=== PATIENT | female | born 1965 | race Caucasian/White ===

== ENCOUNTER → 2018-01-04 08:06 | Outpatient (CLI) | payer OTHER, SELFPAY ==
[2018-01-04 10:21] LABS: AST(SGOT) 14 U/L (15-37); Alanine Aminotransfer ALT/SGPT 24 U/L (13-56); Albumin, Serum 3.6 g/dL (3.2-5.0); Alkaline Phosphatase 87 U/L (45-117); Anion Gap 7 (5-15); BUN 16 mg/dL (7-18); BUN/Creat Ratio 22.2 RATIO (10-20); Calcium,Total 8.8 mg/dL (8.5-10.1); Chloride 107 mmol/L (98-107); Cholesterol 122 mg/dL (200); Creatinine, Serum 0.72 mg/dL (0.55-1.02); EST Glomerular Filtration Rate 89 mL/min (>60); Est Glom Filt Rate - Afr Amer 108 mL/min (>60); Globulin 3.5 g/dL (2.2-4.2); Glucose 202 mg/dL (74-106); Hemoglobin A1c 9.1 % (4.2-6.3); High Density Lipoprotein 39 mg/dL; Potassium 4.1 mmol/L (3.5-5.1); Protein, Total 7.1 g/dL (6.4-8.2); Sodium Level 140 mmol/L (136-145); Triglycerides 114 mg/dL; Very Low Density Lipoprotein 23 mg/dL (5-40)
[2018-01-04 10:22] LABS: Microalbumin,Random Urine 11.5 mg/L (NO RANGE EST.); Microalbumin:Creatinine Ratio 10.5 mg/g CRE (<30 mg/g CRE)
== END ==
PROVIDERS: Family Provider Internal Medicine; PCP Internal Medicine; Visit Provider Nurse Practitioner
DX: E10.9 Type 1 diabetes mellitus without complications (principal); E10.65 Type 1 diabetes mellitus with hyperglycemia
CPT/HCPCS: 36415; 80053; 80061; 82043; 82570; 83036

== ENCOUNTER → 2018-07-02 11:15 | Outpatient (CLI) | payer OTHER, SELFPAY ==
[2018-07-02 10:03] VITALS: BMI 26.4
[2018-07-02 14:02] LABS: ALB/GLOB Ratio 1.1 RATIO (0.9-2.4); AST(SGOT) 19 U/L (15-37); Alanine Aminotransfer ALT/SGPT 30 U/L (13-56); Albumin, Serum 4.1 g/dL (3.2-5.0); Alkaline Phosphatase 103 U/L (45-117); Anion Gap 5 (5-15); BUN 15 mg/dL (7-18); BUN/Creat Ratio 21.8 RATIO (10-20); Calcium,Total 9.9 mg/dL (8.5-10.1); Chloride 106 mmol/L (98-107); Creatinine, Serum 0.69 mg/dL (0.55-1.02); EST Glomerular Filtration Rate 94 mL/min (>60); Est Glom Filt Rate - Afr Amer 114 mL/min (>60); Globulin 3.7 g/dL (2.2-4.2); Glucose 84 mg/dL (74-106); Potassium 4.1 mmol/L (3.5-5.1); Protein, Total 7.8 g/dL (6.4-8.2); Sodium Level 140 mmol/L (136-145); Thyroid Stim Hormone (TSH) 3.33 uIU/mL (0.358-3.74)
--- OUTSIDE RECORDS SUMMARY | 2018-10-04 00:52 | XMS RPT_ITS ---
:1965 Author Organization [facility] Support Name Relationship Address Phone S Unavailable Unavailable Unavailable SNOBDULIA DAVALOS Unavailable [address] + [place] [address] S Unavailable Unavailable Unavailable OBDULIA CEBALLOS Unavailable [address] + [place] [address] S Unavailable Unavailable Unavailable SNOBDULIA DAVALOS Unavailable [address] + [place] [address] S Unavailable Unavailable Unavailable OBDULIA CEBALLOS Unavailable [address] + [place] [address] S Unavailable Unavailable Unavailable SNOBDULIA DAVALOS Unavailable [address] + [place] [address] S Unavailable Unavailable Unavailable OBDULIA CEBALLOS Unavailable [address] + [place] [address] S Unavailable Unavailable Unavailable OBDULIA CEBALLOS Unavailable [address] + [place] [address] S Unavailable Unavailable Unavailable OBDULIA CEBALLOS Unavailable [address] + [place] [address] S Unavailable Unavailable Unavailable SNOBDULIA DAVALOS Unavailable [address] + [place] [address] Care Team Providers Name Role Phone Jenny Cooper Attending Unavailable Jarrell, Cecy Referring Unavailable Jenny Cooper Attending Unavailable Jenny Cooper Referring Unavailable Jarrell, Cecy Primary Care Unavailable Jenny Cooper NP-Trina Attending Unavailable Jenny Cooper NP-Trina Referring Unavailable Jarrell, Cecy Primary Care Unavailable Jenny Cooepr NP-C Attending Unavailable Jarrell, Cecy Referring Unavailable Jenny Cooper [facility] Attending Unavailable Melyssa Dowd Referring Unavailable Jarrell, Cecy Primary Care Unavailable Shook Jenny Mckeon [employer] Attending Unavailable Jarrell, Cecy Referring Unavailable Shook, Jenny Mckeon [employer] [employer] Attending Unavailable Shook, Jenny Mckeon [employer]C Referring Unavailable Jarrell, Cecy Primary Care Unavailable Shook, Jenny Mckeon [employer] [employer]-C Attending Unavailable Jarrell, Cecy Referring Unavailable Shook, Jenny Mckeon [employer] [employer]C Attending Unavailable Jarrell, Cecy Referring Unavailable Jarrell, Cecy Primary Care Unavailable PROBLEMS PROBLEMS DATE TYPE CONDITION / CODE ATTENDING STATUS SOURCE 07/02/2018 Unknown E10.65 - Type 1 Jenny Cooper Active [place] diabetes mellitus [facility] with hyperglycemia Hospital / E10.65(ICD-10) Repository 07/02/2018 Unknown E03.9 - Jenny Cooper Active [place] Hypothyroidism, [facility] Community unspecified / Hospital E03.9(ICD-10) Repository 04/09/2018 Unknown E10.9 - Type 1 ShoJenny marcano Active [place] diabetes mellitus [facility] Community without Hospital complications / Repository E10.9(ICD-10) 04/04/2018 Unknown E11.65 - Type 2 Jenny Cooper Active [place] diabetes mellitus [facility] Community with hyperglycemia Hospital / E11.65(ICD-10) Repository 01/03/2018 Unknown E11.9 - Type 2 ShoJenny marcano Active [place] diabetes mellitus [facility] Community without Hospital complications / Repository E11.9(ICD-10) PROCEDURES PROCEDURES No Procedure Records FoundRESULTS RESULTS THYROID Observed: 07/03/2018 Status: F Source: IMPERIAL 8:53 AM [facility] REPOSITORY [facility] Imaging Services [address] [place] [id number] Thyroid MR#: [id number] Acct: [id number] Name: CIRILO CEBALLOS Rep #: [id number] : 1965 F 53 From: Mary Ellen Crawford MD PCP: Cecy Vieyra DO Status: REG CLI Study: Thyroid Date of Exam: 07/03/18 Exam# [id number] Ordering Dr: Jenny Cooper STUDY: THYROID ULTRASOUND REASON FOR EXAM: Female, 53 years old. Nodule, hypothyroidism TECHNIQUE: Ultrasound evaluation of the thyroid was performed with real-time and static robin-scale imaging. COMPARISON: June 28, 2017 thyroid ultrasound FINDINGS: RIGHT LOBE: The right lobe of the thyroid gland measures 4.6 x 1.9 x 1.2 cm. There is a heterogeneous echotexture. There is a 9 x 9 x 8 mm hyperechoic nodule within the right thyroid. LEFT LOBE: The left lobe of the thyroid gland measures 4.5 x 1.9 x 1.3 cm. There is a heterogeneous echotexture. There are no demonstrated solid, cystic or complex lesions. Prior study showed what likely represented inferiorly located calcification this is partially seen on today's study. ISTHMUS: The isthmus measures 4 mm . The regional lymph nodes are normal. US/Thyroid IMPRESSION: Heterogeneous bilateral thyroid compatible with multinodular thyroid. There is a relative isoechoic component in the right thyroid gland measuring 9 x 9 x 8 mm which is similar to the prior study allowing for differences in technique. There are punctate calcifications in the inferior aspect of the right thyroid. Recommend continued follow-up. Electronically Signed: Mary Ellen Crawford MD at 2:57 EST Tel , Service support , CC: Jenny Cooper NP; Cecy Vieyra DO Apartment Leasing Agent: Signed ENDOCRINOLOGY VISIT Observed: 07/02/2018 Status: F Source: IMPERIAL REPORT 1:06 PM [facility] REPOSITORY [facility] [address] [place] [address]. [address] [place] [address] OFFICE VISIT Date of Service: 07/02/18 MR#: [id number] Acct: [id number] Name: CIRILO CEBALLOS Rep #: [id number] : 1965 Provider: Jenny Cooper NP Age/Sex: 53/F Location: [facility] [place] Status: Signed HPI History of present illness Cirilo Ceballos is a 53 year old female who presents for follow up of diabetes,type 1. Continues on levemir 11 units in am and 11 units in pm. Humalog coverage at meals is 5-8-13-0. Last visit a decrease in pm levemir was made and pt is no longer have low BG at night. Pt denies difficulty with injections or self monitoring of BG. Denies any signs of infection or irritation at site of injections. Reports taking insulin as directed Today patient is noted to be having low BG at bedtime and during the night. At time of visit: -Pt denies symptoms of hypertensive emergency (CP,SOB,JENSEN, or blurred vision) and hypotension(dizziness or lightheadedness) -Pt denies symptoms of hypoglycemia ( sweaty, confusion, anxiety, tremor, hunger, palpitations) and hyperglycemia ( polydipsia, polyuria) -Pt denies potential medication adverse effect. Hypoglycemia Aware of hypoglycemia: When awake Able to self treat low BG: Yes Frequent low Bloo sugar: No Has supply of glucagon: Yes SMBG 4 checks daily in range in am High BG by 5pm Exercise Walking in the evenings but uses her BG as a guide. Severity, modifying factors, context, and associated signs and symptoms are as follows: Thyroid pain: No Energy: good Sleep: awakened refreshed Temp: No intolerance GI: Normal bowel Weight: Flucuates Eyes: No change in vision Memory: unchanged Diaphoresis: Not significant Skin: Dry Hair : Unchanged Neuro: No numbness, tingling or tremors Exam Const General: comfortable, well groomed, well hydrated Nutritional Appearance: average body habitus Orientation: oriented x3 HENMT Head: normal to inspection, normocephalic Ears: hearing grossly normal bilaterally Nose: external nose normal Mouth: oral mucosae normal, moist mucous membranes Teeth and gingiva: dentition normal Eyes General: appearance normal, both eyes and all related structures Eyelids: eyelids normal Conjunctivae: conjunctivae normal Cornea: corneas normal Pupils: PERRL Resp Effort AND Inspection: normal respiratory effort, able to speak in complete sentences, symmetric chest movement Auscultation: Bilateral: Clear to Auscultation Cardio Rate: regular rate Rhythm: regular rhythm Heart Sounds: S1 normal, S2 normal, no murmurs, no rubs GI Inspection: normal to inspection Auscultation: normal bowel sounds Palpation: soft, no guarding Skin General: no rashes or lesions noted Wounds: no wounds Diabetic Foot Pulses: L dorsalis pedis pulse: normal, R dorsalis pedis pulse: normal Monofilament test: Left foot: normal, Right foot: normal Neuro General: moves all extremities Cranial Nerves: CN's II-XI intact bilaterally Extrem General: no joint enlargement, no clubbing, cyanosis or edema Psych Appearance: well kempt Mental Status: mental status grossly normal Mood: congruent mood Affect: normal affect Speech and Movement: speech and movement normal Attitude: cooperative Thought Process: normal Thought Content: normal Judgment: judgment good Type: type 1, insulin-requiring Glucose control symptoms: Reports nocturnal hypoglycemia Weight and fatigue symptoms: Denies snoring Cardiopulmonary symptoms: Denies chest pain at rest, dyspnea on exertion, lightheadedness or myalgias GI symptoms: Denies constipation, diarrhea, nausea/dyspepsia or vomiting Skin and extremity symptoms: Denies tingling/numbness/burning Other symptoms: Denies blurry vision or change in vision Pertinent visit history: Denies recent visit to ER, recent hospital admission or recent 911 calls Self monitoring: Yes Glucometer type: an[place]ieta sensor Dietary compliance: Diabetes: good Diabetes education in past year: Yes Glucose testing: demonstrates correct use of meter, understands testing schedule Sick day education - understands ketone testing: Yes Physical activity: regular Intake Vital Signs07/02/18 Height 5 ft 2 in 07/02/18 Weight: 144 lb 8 oz 07/02/18 Body Mass Index (BMI) 26.4 07/02/18 Blood Pressure 125/84 H 07/02/18 Blood Pressure Location Lt popliteal 07/02/18 Blood Pressure Position Sitting Intake Visit Reasons: Diabetes follow-up 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 Required: No Accompanied by: Self Allergies No Known Allergies Allergy (Verified 04/04/18 08:13) Medications Lactobacillus acidophilus capsule 10 mg PO QDAY 06/26/17 [History Confirmed 07/02/18] atorvastatin 20 mg tablet 20 mg PO QDAY 06/26/17 [History Confirmed 07/02/18] insulin detemir (U-100) 100 unit/mL (3 mL) subcutaneous pen 13 unit SC TID ml 06/26/17 [History Confirmed 07/02/18] loratadine 10 mg tablet 10 mg PO QDAY 06/26/17 [History Confirmed 07/02/18] multivitamin capsule 1 cap PO QAM 06/26/17 [History Confirmed 07/02/18] insulin lispro (U-200) 200 unit/mL (3 mL) subcutaneous pen See Rx Instructions SC QAM #3 ml 06/27/17 [Rx Confirmed 07/02/18] pen needle, diabetic 31 gauge x 11/29 See Dose Instructions .ROUTE .MEDSUPPLY #150 ea 06/27/17 [Rx Confirmed 07/02/18] FreeStyle Clear[place] Lite kit See Dose Instructions .ROUTE .MEDSUPPLY #1 ea NS 11/06/17 [Rx Confirmed 07/02/18] FreeStyle Lancets 28 gauge See Dose Instructions .ROUTE .MEDSUPPLY #100 ea NS 11/06/17 [Rx Confirmed 07/02/18] FreeStyle Lite Strips See Dose Instructions .ROUTE .MEDSUPPLY #150 ea NS 11/06/17 [Rx Confirmed 07/02/18] lisinopril 20 mg tablet 20 mg PO QDAY #90 tab 03/21/18 [Rx Confirmed 07/02/18] flash glucose scanning reader See Dose Instructions .ROUTE .MEDSUPPLY #1 ea 04/04/18 [Rx Confirmed 07/02/18] flash glucose sensor kit See Dose Instructions .ROUTE .MEDSUPPLY #3 ea 04/04/18 [Rx Confirmed 07/02/18] flash glucose sensor kit See Dose Instructions .ROUTE .MEDSUPPLY #2 ea 07/02/18 [Rx Confirmed 07/02/18] Nurse's Note: blood sugars : low : 82 high : 442 [facility] Medical History Diabetes type 1, controlled (Acute) Diabetes type 1, controlled (Acute) Hypothyroid (Acute) Hypothyroidism (Acute) Surgical History H/O lumpectomy (Acute) H/O: (Acute) History of (Acute) History of carpal tunnel release (Acute) History of carpal tunnel release of both wrists (Acute) History of lumpectomy of right breast (Acute) Family History Mother Diabetes Bleeding disorder High cholesterol Cancer Heart disease Hypertension Mother Bleeding disorder Diabetes High cholesterol Cancer Heart disease Hypertension Social History Smoking Status: Never smoker second hand exposure: No alcohol intake: current substance use type: does not use ROS Const Constitutional: Positive for night sweats; no anorexia, body ache, chills, fatigue, fever(s), frequent falls, decreased energy, malaise, weakness, weight change, sleep problems, abnormal sleep pattern, change in appetite, other, headache(s), snoring or excessive sweating Eyes Eyes: Positive for other (swelling in back of bilat eyes); no blurry vision, change in vision, double vision, discharge, dry eyes, bulging eyes, floaters, visual disturbances, eye pain, light sensitivity, spots in vision or tunnel vision ENT ENT: No abnormal hearing, ear pain, ear discharge, ear pressure, hearing loss, tinnitus, dizziness/vertigo, balance problems, nosebleed/epistaxis, nasal congestion, nasal obstruction, nose pain, sinus pressure, sinus pain, nasal discharge, post nasal drip, headache(s), facial pain, dental pain, dry mouth, bad breath, hoarseness, lip swelling, mouth lesions, mouth pain, sore throat, tongue swelling, throat swelling, other, difficulty swallowing or neck pain Resp Respiratory: No cough, change in phlegm color, chest congestion, excessive phlegm production, hemoptysis, pain on inspiration, shortness of breath, pain with cough, snoring, stridor, wheezing or other Cardio Cardiology: No chest pain at rest, chest pain with exertion, leg pain with exertion, excessive sweating, shortness of breath, dyspnea on exertion, generalized swelling, irregular heart rhythm, lightheadedness, orthopnea, radiating jaw, neck or arm pain, fast heart rate, slow heart rate, palpitations or other Gastro GI: No abdominal pain, belching, bloating, change in bowel habits, change in stool character, coffee ground emesis, constipation, cramping, diarrhea, heartburn, difficulty swallowing, feeling full early, excessive flatus, incontinent of stools, Vomiting blood/hematemesis, blood in stool, loose stools, Black,tarry stools, nausea/dyspepsia, pain with swallowing, vomiting or other Genitourinary-Female: No difficulty urinating, burning urination, painful urination, urinary incontinence, urinary frequency, urinary urgency, urinary hesitancy, urinary retention, blood in urine, Frequent nighttime urination/ nocturia, post void dribbling, suprapubic fullness, side pain, sexual problems, genital lesions, genital itching, hot flashes, abnormal periods, abnormal vaginal bleeding, absent period, painful periods, light periods, heavy periods, difficulty getting , painful intercourse, pelvic pain, vaginal dryness, vaginal odor, Vaginal Itching or other Musc Musculoskeletal: No abnormal walking, joint pain, back pain, deformity, joint swelling, limited range of motion, loss of height, muscle cramps, muscle weakness, decreased muscle mass, body aches, neck pain, numbness, radiating pain into limb, stiffness, tingling or other Skin Skin: No acne, hair loss, change in hair, nail changes, boil, change in skin color, dry skin, redness, excessive hair growth, yellowing of the skin, lesions, itching, rash, skin pain, skin ulcer, sores, skin swelling, wounds or other Breast Breast: No other Neuro Neurology: No frequent falls, weakness, visual disturbances, abnormal hearing, headache(s), abnormal walking, numbness or tingling Psych Psychiatric: No abnormal sleep pattern, No change in appetite Endo Endocrine: No fatigue, other or excessive sweating Aller/Imm Allergy/Immunologic: No lip swelling, tongue swelling, throat swelling, wheezing or itchy eyes Assessment AND Plan 1. Type 1 diabetes mellitus with other specified complication E10.69 2. Hypothyroidism (acquired) E03.9 Plan Diabetes: At last visit insulin increased at supper by 2 units but this is creating low BG at night again. Ask patient to reduce by 1 unit. If BG during day remain elevated can increase am levemir by 1 unit increments up to dose of 13 units. Hypothyroidism: Tolerating medication. TSH in range. Due for annual US thyroid. Control portions Food selections should be healthy Choose more low carb vegetables Avoid snacks and desserts. Drink water Exercise daily Eat more fresh foods, not canned or processed Eat more slowly Orders Orders: Plan Detail Other Orders Orders: Other Medications New: Additional Comments 1. Please schedule follow up in 3 months. 2. Lab work one week before appointment. 3. Discussed importance of regular exercise and recommend starting or continuing a regular exercise program for good health. 4. The patient was encouraged to lose weight for good health 5. The importance of monitoring blood sugar regularly was reviewed. 6. The importance of monitoring the HBA1c level regularly was reviewed. 7. The importance of prper foot care and regularly checking feet to prevent sores and loss of limbs was reviewed. 8. The importance of keeping BP at or below 130/80 to prevent stroke, heart attacks, kidney failure, blindness was reviewed. Spent approximately 30 minutes with patient with over 50% of time spent in discussion and counseling regarding medication adjustment, symptoms and treatment of hypoglycemia, diet adherence, and checking BG before driving. Coding Level of Care Code Off vis,est,level 4 Diagnoses Type 1 diabetes mellitus with other specified complication E10.69 Diabetes mellitus type: type 1 Diabetes mellitus complication status: with other specified complication Hypothyroidism (acquired) E03.9 07/02/18 1306 <Electronically signed by Jenny WEBSTER> Date Jenny WEBSTER Cosigner Signature: Date (if applicable) CC: HEMOGLOBIN A1C Collected: 07/02/2018 Status: F Source: NILO 11:28 AM [facility] REPOSITORY TYPE CODE TESTS RESULT OUT OF RANGE REFERENCE UNITS LAB L501.9985 4.2-6.3 % High HGB A1C 9.0 Performed By: #### L501.9985 #### [facility] [address] [place], [place], [address] COMPREHENSIVE METABOLIC Collected: 07/02/2018 Status: F Source: NILO [facility] 11:28 AM [facility] REPOSITORY TYPE CODE TESTS RESULT OUT OF RANGE REFERENCE UNITS LAB L501.0100 74-106 mg/dL Normal GLU 84 Result Comment: Please note revised GLUCOSE reference range effective 2017. LAB L501.1000 7-18 mg/dL Normal BUN 15 LAB L501.1100 0.55-1.02 mg/dL Normal CREAT,SERUM 0.69 Result Comment: The validity of the calculated GFR AND GFRAA in patients over 70 years has not been determined. Clinical correlation is essential. LAB L501.1110 >60 mL/min Normal EST GFR 94 Result Comment: Non- GFR Calc LAB L501.1115 >60 mL/min Normal EST GFR - AA 114 Result Comment: GFR Calc LAB L501.1300 10-20 RATIO High BUN/CRE 21.8 LAB L501.1500 6.4-8.2 g/dL T Normal PROT 7.8 LAB L501.1800 3.2-5.0 g/dL Normal ALB 4.1 LAB L501.1950 2.2-4.2 g/dL Normal GLOB 3.7 LAB L501.2000 0.9-2.4 RATIO Normal A/G 1.1 LAB L501.2200 8.5-10.1 mg/dL CA Normal 9.9 LAB L501.4100 15-37 U/L Normal AST 19 LAB L501.4305 45-117 U/L Normal ALK P 103 LAB L501.4405 13-56 U/L Normal ALT 30 LAB L501.4600 0.20-1.00 mg/dL T Normal BILI 0.40 LAB L501.5300 136-145 mmol/L NA Normal 140 LAB L501.5600 3.5-5.1 mmol/L K Normal 4.1 LAB L501.5900 98-107 mmol/L CL Normal 106 LAB L501.6100 21.0-32.0 mmol/L Normal CO2 29.0 LAB L501.6200 5-15 Normal GAP 5 Performed By: #### L500.4050, L501.9520 #### [facility] [address] [place], [place], [address] THYROID STIM HORMONE Collected: 07/02/2018 Status: F Source: NILO (TSH) 11:28 AM [facility] REPOSITORY TYPE CODE TESTS RESULT OUT OF RANGE REFERENCE UNITS LAB L501.9520 0.358-3.74 uIU/mL Normal TSH 3.33 Performed By: #### L500.4050, L501.9520 #### [facility] [address] [place], [place], [address] ENDOCRINOLOGY VISIT Observed: 04/05/2018 Status: F Source: NILO REPORT 8:25 AM [facility] REPOSITORY [facility] [address] [place] [address]. [address] [place] [address] OFFICE VISIT Date of Service: 04/04/18 MR#: [id number] Acct: [id number] Name: CIRILO CEBALLOS Rep #: [id number] : 1965 Provider: Jenny Cooper NP Age/Sex: 53/F Location: [facility] [place] Status: Signed with Addenda ADDENDUM by Jenny Cooper NP on 04/05/18 at 0825 Addendum entered and electronically signed by ELEANOR Prajapati 04/05/18 08:25: Flu vaccine given 03/2018 BJ Allison 04/05/18 0825 <Electronically signed by Jenny WEBSTER> Date Jenny Cooper cc: * Signed HPI History of present illness Cirilo Ceballos is a 53 year old female who presents for follow up of diabetes,type 1. Continues on levemir 11 units in am and 11 units in pm. Humalog coverage at meals is 5-7-13-0. Last visit a decrease in pm levemir was made and pt is no longer have low BG at night. Pt denies difficulty with injections or self monitoring of BG. Denies any signs of infection or irritation at site of injections. Reports taking insulin as directed At time of visit: -Pt denies symptoms of hypertensive emergency (CP,SOB,JENSEN, or blurred vision) and hypotension(dizziness or lightheadedness) -Pt denies symptoms of hypoglycemia ( sweaty, confusion, anxiety, tremor, hunger, palpitations) and hyperglycemia ( polydipsia, polyuria) -Pt denies potential medication adverse effect. Hypoglycemia Aware of hypoglycemia: When awake Able to self treat low BG: Yes Frequent low Blood sugar: No Has supply of glucagon: Yes SMBG 4 checks daily in range in am High BG by 5pm and at 9pm Exercise Walking in the evenings but uses her BG as a guide. Exam Const General: comfortable, well groomed, well hydrated Nutritional Appearance: average body habitus Orientation: oriented x3 HENMT Head: normal to inspection, normocephalic Ears: hearing grossly normal bilaterally Nose: external nose normal Mouth: oral mucosae normal, moist mucous membranes Teeth and gingiva: dentition normal Eyes General: appearance normal, both eyes and all related structures Eyelids: eyelids normal Conjunctivae: conjunctivae normal Cornea: corneas normal Pupils: PERRL Resp Effort AND Inspection: normal respiratory effort, able to speak in complete sentences, symmetric chest movement Auscultation: Bilateral: Clear to Auscultation Cardio Rate: regular rate Rhythm: regular rhythm Heart Sounds: S1 normal, S2 normal, no murmurs, no rubs GI Inspection: normal to inspection Auscultation: normal bowel sounds Palpation: soft, no guarding Skin General: no rashes or lesions noted Wounds: no wounds Diabetic Foot Pulses: L dorsalis pedis pulse: normal, R dorsalis pedis pulse: normal Monofilament test: Left foot: normal, Right foot: normal Neuro General: moves all extremities Cranial Nerves: CN's II-XI intact bilaterally Extrem General: no joint enlargement, no clubbing, cyanosis or edema Psych Appearance: well kempt Mental Status: mental status grossly normal Mood: congruent mood Affect: normal affect Speech and Movement: speech and movement normal Attitude: cooperative Thought Process: normal Thought Content: normal Judgment: judgment good Weight and fatigue symptoms: Denies snoring Cardiopulmonary symptoms: Denies chest pain at rest, dyspnea on exertion, lightheadedness or myalgias GI symptoms: Denies constipation, diarrhea, nausea/dyspepsia or vomiting Other symptoms: Denies blurry vision or change in vision Type: type 1, insulin-requiring Glucose control symptoms: Reports high post-meal glucose and hypoglycemic with activity Weight and fatigue symptoms: Reports weight gain; denies snoring Cardiopulmonary symptoms: Denies chest pain at rest, dyspnea on exertion, lightheadedness or myalgias GI symptoms: Denies constipation, diarrhea, nausea/dyspepsia or vomiting Other symptoms: Denies blurry vision or change in vision Pertinent visit history: Denies recent visit to ER, recent glucagon injection or recent hospital admission Self monitoring: Yes Percentage of fasting blood glucose within goal: 25%-50% of the time Dietary compliance: Diabetes: other Diabetes education in past year: Yes Glucose testing: demonstrates correct use of meter Physical activity: regular Intake Vital Signs04/04/18 Height 5 ft 2 in 04/04/18 Weight: 143 lb 8 oz 04/04/18 Body Mass Index (BMI) 26.2 04/04/18 Blood Pressure 130/82 04/04/18 Blood Pressure Location Lt popliteal 04/04/18 Blood Pressure Position Sitting Intake Visit Reasons: Follow up 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 Required: No Accompanied by: Self Is patient in pain?: No Allergies No Known Allergies Allergy (Verified 04/04/18 08:13) Medications Lactobacillus acidophilus capsule 10 mg PO QDAY 06/26/17 [History Confirmed 04/04/18] atorvastatin 20 mg tablet 20 mg PO QDAY 06/26/17 [History Confirmed 04/04/18] insulin detemir (U-100) 100 unit/mL (3 mL) subcutaneous pen 13 unit SC TID ml 06/26/17 [History Confirmed 04/04/18] loratadine 10 mg tablet 10 mg PO QDAY 06/26/17 [History Confirmed 04/04/18] multivitamin capsule 1 cap PO QAM 06/26/17 [History Confirmed 04/04/18] insulin lispro (U-200) 200 unit/mL (3 mL) subcutaneous pen See Label Instructions SC QAM #3 ml 06/27/17 [Rx Confirmed 04/04/18] pen needle, diabetic 31 gauge x 11/29 See Dose Instructions .ROUTE .MEDSUPPLY #150 ea 06/27/17 [Rx Confirmed 04/04/18] FreeStyle Clearwater Lite kit See Dose Instructions .ROUTE .MEDSUPPLY #1 ea NS 11/06/17 [Rx Confirmed 04/04/18] FreeStyle Lancets 28 gauge See Dose Instructions .ROUTE .MEDSUPPLY #100 ea NS 11/06/17 [Rx Confirmed 04/04/18] FreeStyle Lite Strips See Dose Instructions .ROUTE .MEDSUPPLY #150 ea NS 11/06/17 [Rx Confirmed 04/04/18] lisinopril 20 mg tablet 20 mg PO QDAY #90 tab 03/21/18 [Rx Confirmed 04/04/18] flash glucose scanning reader See Dose Instructions .ROUTE .MEDSUPPLY #1 ea 04/04/18 [Rx Confirmed 04/04/18] flash glucose sensor kit See Dose Instructions .ROUTE .MEDSUPPLY #3 ea 04/04/18 [Rx Confirmed 09/19/18] Is last menstrual period known: No Post menopausal: Yes Patient : No Nurse's Note: Blood sugars : low : 67 high : 342 PFS Medical History Diabetes type 1, controlled (Acute) Diabetes type 1, controlled (Acute) History of carpal tunnel release (Acute) Hypothyroid (Acute) Hypothyroidism (Acute) Surgical History H/O lumpectomy (Acute) H/O: (Acute) History of (Acute) History of carpal tunnel release of both wrists (Acute) History of lumpectomy of right breast (Acute) Family History Mother Diabetes Bleeding disorder High cholesterol Cancer Heart disease Hypertension Mother Bleeding disorder Diabetes High cholesterol Cancer Heart disease Hypertension Social History Smoking Status: Never smoker second hand exposure: No alcohol intake: current substance use type: does not use ROS Const Constitutional: No anorexia, body ache, chills, fatigue, fever(s), frequent falls, decreased energy, malaise, night sweats, weakness, weight change, sleep problems, abnormal sleep pattern, change in appetite, other, headache(s), snoring or excessive sweating Eyes Eyes: No blurry vision, change in vision, double vision, discharge, dry eyes, bulging eyes, floaters, visual disturbances, eye pain, light sensitivity, spots in vision, tunnel vision or other ENT ENT: No abnormal hearing, ear pain, ear discharge, ear pressure, hearing loss, tinnitus, dizziness/vertigo, balance problems, nosebleed/epistaxis, nasal congestion, nasal obstruction, nose pain, sinus pressure, sinus pain, nasal discharge, post nasal drip, headache(s), facial pain, dental pain, dry mouth, bad breath, hoarseness, lip swelling, mouth lesions, mouth pain, sore throat, tongue swelling, throat swelling, other, difficulty swallowing or neck pain Resp Respiratory: No cough, change in phlegm color, chest congestion, excessive phlegm production, hemoptysis, pain on inspiration, shortness of breath, pain with cough, snoring, stridor, wheezing or other Cardio Cardiology: No chest pain at rest, chest pain with exertion, leg pain with exertion, excessive sweating, shortness of breath, dyspnea on exertion, generalized swelling, irregular heart rhythm, lightheadedness, orthopnea, radiating jaw, neck or arm pain, fast heart rate, slow heart rate, palpitations or other Gastro GI: No abdominal pain, belching, bloating, change in bowel habits, change in stool character, coffee ground emesis, constipation, cramping, diarrhea, heartburn, difficulty swallowing, feeling full early, excessive flatus, incontinent of stools, Vomiting blood/hematemesis, blood in stool, loose stools, Black,tarry stools, nausea/dyspepsia, pain with swallowing, vomiting or other Genitourinary-Female: No difficulty urinating, burning urination, painful urination, urinary incontinence, urinary frequency, urinary urgency, urinary hesitancy, urinary retention, blood in urine, Frequent nighttime urination/ nocturia, post void dribbling, suprapubic fullness, side pain, sexual problems, genital lesions, genital itching, hot flashes, abnormal periods, abnormal vaginal bleeding, absent period, painful periods, light periods, heavy periods, difficulty getting , painful intercourse, pelvic pain, vaginal dryness, vaginal odor, Vaginal Itching or other Musc Musculoskeletal: No abnormal walking, joint pain, back pain, deformity, joint swelling, limited range of motion, loss of height, muscle cramps, muscle weakness, decreased muscle mass, body aches, neck pain, numbness, radiating pain into limb, stiffness, tingling or other Skin Skin: No acne, hair loss, change in hair, nail changes, boil, change in skin color, dry skin, redness, excessive hair growth, yellowing of the skin, lesions, itching, rash, skin pain, skin ulcer, sores, skin swelling, wounds or other Breast Breast: No other Neuro Neurology: No frequent falls, weakness, visual disturbances, abnormal hearing, headache(s), abnormal walking, numbness or tingling Psych Psychiatric: No abnormal sleep pattern, No change in appetite Endo Endocrine: No fatigue, other or excessive sweating Aller/Imm Allergy/Immunologic: No lip swelling, tongue swelling, throat swelling, wheezing or itchy eyes Assessment AND Plan Problems 1. Hypothyroidism (acquired) E03.9 2. 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 On days when patient walks she is ask to further work to avoid night time low BG's. will order antonieta sensor for patient, pending insurance approval. Has bruising from new pen needles which have larger gauge than past needles. Will order shahbaz needles to determine if this helps. Enc to avoid allowing needle from drifting while giving injection. Labs due next visit. Thyroid: Severity, modifying factors, context, and associated signs and symptoms are as follows: Thyroid pain: No Energy :good Sleep: awakened refreshed Temp: No intolerance GI: Normal bowel Weight: Flucuates Eyes: No change in vision Memory: unchanged Diaphoresis: Not significant Skin: Dry Hair : Unchanged Neuro: No numbness, tingling or tremors Medications New: Plan Detail Additional Comments 1. Please schedule follow up in 3 months. 2. Lab work one week before appointment. 3. Discussed importance of regular exercise and recommend starting or continuing a regular exercise program for good health. 4. The patient was encouraged to lose weight for good health 5. The importance of monitoring blood sugar regularly was reviewed. 6. The importance of monitoring the HBA1c level regularly was reviewed. 7. The importance of prper foot care and regularly checking feet to prevent sores and loss of limbs was reviewed. 8. The importance of keeping BP at or below 130/80 to prevent stroke, heart attacks, kidney failure, blindness was reviewed. Spent approximately 30 minutes with patient with over 50% of time spent in discussion and counseling regarding medication adjustment, symptoms and treatment of hypoglycemia, diet adherence, and checking BG before driving. Coding Level of Care Code Off vis,est,level 4 Diagnoses Hypothyroidism (acquired) E03.9 diabetes type 1 uncontrolled with termite control service representative insulin 04/05/18 0824 <Electronically signed by Jenny WEBSTER> Date Jenny WEBSTER Cosigner Signature: Date (if applicable) CC: ENDOCRINOLOGY VISIT Observed: 01/06/2018 Status: F Source: NILO REPORT 8:42 AM [facility] REPOSITORY [facility] [address] [place] [address] OFFICE VISIT Date of Service: 01/03/18 MR#: [id number] Acct: [id number] Name: CIRILO CEABLLOS Rep #: [id number] : 1965 Provider: Jenny Cooper NP Age/Sex: 52/F Location: [place] Status: Signed HPI History of present illness HPI History of present illness Cirilo Ceballos is a 52 year old female who presents for follow up of diabetes,type 1. Continues on levemir 11 units in am and 11 units in pm. Humalog coverage at meals is 5-7-13-0. Last visit a decrease in pm levemir was made and pt is no longer have low BG at night. Pt denies difficulty with injections or self monitoring of BG. Denies any signs of infection or irritation at site of injections. Reports taking insulin as directed At time of visit: -Pt denies symptoms of hypertensive emergency (CP,SOB,JENSEN, or blurred vision) and hypotension(dizziness or lightheadedness) -Pt denies symptoms of hypoglycemia ( sweaty, confusion, anxiety, tremor, hunger, palpitations) and hyperglycemia ( polydipsia, polyuria) -Pt denies potential medication adverse effect. Hypoglycemia Aware of hypoglycemia: When awake Able to self treat low BG: Yes Frequent low Bloo sugar: No Has supply of glucagon: Yes SMBG 4 checks daily in range in am High BG by 5pm and at 9pm Exercise Walking in the evenings but uses her BG as a guide. Weight and fatigue symptoms: Denies snoring Cardiopulmonary symptoms: Denies chest pain at rest, dyspnea on exertion, lightheadedness or myalgias GI symptoms: Denies constipation, diarrhea, nausea/dyspepsia or vomiting Other symptoms: Denies blurry vision or change in vision Exam Const General: comfortable, well groomed, well hydrated Nutritional Appearance: average body habitus Orientation: oriented x3 HENMT Head: normal to inspection, normocephalic Ears: hearing grossly normal bilaterally Nose: external nose normal Mouth: oral mucosae normal, moist mucous membranes Teeth and gingiva: dentition normal Eyes General: appearance normal, both eyes and all related structures Eyelids: eyelids normal Conjunctivae: conjunctivae normal Cornea: corneas normal Pupils: PERRL Resp Effort AND Inspection: normal respiratory effort, able to speak in complete sentences, symmetric chest movement Auscultation: Bilateral: Clear to Auscultation Cardio Rate: regular rate Rhythm: regular rhythm Heart Sounds: S1 normal, S2 normal, no murmurs, no rubs GI Inspection: normal to inspection Auscultation: normal bowel sounds Palpation: soft, no guarding Skin General: no rashes or lesions noted Wounds: no wounds Diabetic Foot Pulses: L dorsalis pedis pulse: normal, R dorsalis pedis pulse: normal Monofilament test: Left foot: normal, Right foot: normal Neuro General: moves all extremities Cranial Nerves: CN's II-XI intact bilaterally Extrem General: no joint enlargement, no clubbing, cyanosis or edema Psych Appearance: well kempt Mental Status: mental status grossly normal Mood: congruent mood Affect: normal affect Speech and Movement: speech and movement normal Attitude: cooperative Thought Process: normal Thought Content: normal Judgment: judgment good Weight and fatigue symptoms: Denies snoring Cardiopulmonary symptoms: Denies chest pain at rest, dyspnea on exertion, lightheadedness or myalgias GI symptoms: Denies constipation, diarrhea, nausea/dyspepsia or vomiting Other symptoms: Denies blurry vision or change in vision Intake Vital Signs01/03/18 Height 5 ft 2 in 01/03/18 Weight: 142 lb 01/03/18 Body Mass Index (BMI) 25.9 01/03/18 Blood Pressure 122/76 01/03/18 Blood Pressure Location Lt popliteal 01/03/18 Blood Pressure Position Sitting Intake Visit Reasons: 3 M 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 Required: No Accompanied by: Self Is patient in pain?: No Allergies No Known Allergies Allergy (Verified 01/03/18 10:29) Medications Lactobacillus acidophilus capsule 10 mg PO QDAY 06/26/17 [History Confirmed 01/03/18] atorvastatin 20 mg tablet 20 mg PO QDAY 06/26/17 [History Confirmed 01/03/18] insulin detemir (U-100) 100 unit/mL (3 mL) subcutaneous pen 13 unit SC TID ml 06/26/17 [History Confirmed 01/03/18] lisinopril 20 mg tablet 20 mg PO QDAY 06/26/17 [History Confirmed 01/03/18] loratadine 10 mg tablet 10 mg PO QDAY 06/26/17 [History Confirmed 01/03/18] multivitamin capsule 1 cap PO QAM 06/26/17 [History Confirmed 01/03/18] insulin lispro (U-200) 200 unit/mL (3 mL) subcutaneous pen See Label Instructions SC QAM #3 ml 06/27/17 [Rx Confirmed 01/03/18] pen needle, diabetic 31 gauge x 11/29 See Dose Instructions .ROUTE .MEDSUPPLY #150 ea 06/27/17 [Rx Confirmed 01/03/18] FreeStyle Clearwater Lite kit See Dose Instructions .ROUTE .MEDSUPPLY #1 ea NS 11/06/17 [Rx Confirmed 11/06/17] FreeStyle Lancets 28 gauge See Dose Instructions .ROUTE .MEDSUPPLY #100 ea NS 11/06/17 [Rx Confirmed 11/06/17] FreeStyle Lite Strips See Dose Instructions .ROUTE .MEDSUPPLY #150 ea NS 11/06/17 [Rx Confirmed 11/06/17] Is last menstrual period known: No Post menopausal: Yes Patient : No Nurse's Note: blood sugars : low : 57 high : 414 PFSH Medical History Diabetes type 1, controlled (Acute) Diabetes type 1, controlled (Acute) History of carpal tunnel release (Acute) Hypothyroid (Acute) Hypothyroidism (Acute) Surgical History H/O lumpectomy (Acute) H/O: (Acute) History of (Acute) History of carpal tunnel release of both wrists (Acute) History of lumpectomy of right breast (Acute) Family History Mother Diabetes Bleeding disorder High cholesterol Cancer Heart disease Hypertension Mother Bleeding disorder Diabetes High cholesterol Cancer Heart disease Hypertension Social History Smoking Status: Never smoker second hand exposure: No alcohol intake: current substance use type: does not use ROS Const Constitutional: No anorexia, body ache, chills, fatigue, fever(s), frequent falls, decreased energy, malaise, night sweats, weakness, weight change, sleep problems, abnormal sleep pattern, change in appetite, other, headache(s), snoring or excessive sweating Eyes Eyes: No blurry vision, change in vision, double vision, discharge, dry eyes, bulging eyes, floaters, visual disturbances, eye pain, light sensitivity, spots in vision, tunnel vision or other ENT ENT: No abnormal hearing, ear pain, ear discharge, ear pressure, hearing loss, tinnitus, dizziness/vertigo, balance problems, nosebleed/epistaxis, nasal congestion, nasal obstruction, nose pain, sinus pressure, sinus pain, nasal discharge, post nasal drip, headache(s), facial pain, dental pain, dry mouth, bad breath, hoarseness, lip swelling, mouth lesions, mouth pain, sore throat, tongue swelling, throat swelling, other, difficulty swallowing or neck pain Resp Respiratory: No cough, change in phlegm color, chest congestion, excessive phlegm production, hemoptysis, pain on inspiration, shortness of breath, pain with cough, snoring, stridor, wheezing or other Cardio Cardiology: No chest pain at rest, chest pain with exertion, leg pain with exertion, excessive sweating, shortness of breath, dyspnea on exertion, generalized swelling, irregular heart rhythm, lightheadedness, orthopnea, radiating jaw, neck or arm pain, fast heart rate, slow heart rate, palpitations or other Gastro GI: No abdominal pain, belching, bloating, change in bowel habits, change in stool character, coffee ground emesis, constipation, cramping, diarrhea, heartburn, difficulty swallowing, feeling full early, excessive flatus, incontinent of stools, Vomiting blood/hematemesis, blood in stool, loose stools, Black,tarry stools, nausea/dyspepsia, pain with swallowing, vomiting or other Genitourinary-Female: No difficulty urinating, burning urination, painful urination, urinary incontinence, urinary frequency, urinary urgency, urinary hesitancy, urinary retention, blood in urine, Frequent nighttime urination/ nocturia, post void dribbling, suprapubic fullness, side pain, sexual problems, genital lesions, genital itching, hot flashes, abnormal periods, abnormal vaginal bleeding, absent period, painful periods, light periods, heavy periods, difficulty getting , painful intercourse, pelvic pain, vaginal dryness, vaginal odor, Vaginal Itching or other Musc Musculoskeletal: No abnormal walking, joint pain, back pain, deformity, joint swelling, limited range of motion, loss of height, muscle cramps, muscle weakness, decreased muscle mass, body aches, neck pain, numbness, radiating pain into limb, stiffness, tingling or other Skin Skin: No acne, hair loss, change in hair, nail changes, boil, change in skin color, dry skin, redness, excessive hair growth, yellowing of the skin, lesions, itching, rash, skin pain, skin ulcer, sores, skin swelling, wounds or other Breast Breast: No other Neuro Neurology: No frequent falls, weakness, visual disturbances, abnormal hearing, headache(s), abnormal walking, numbness or tingling Psych Psychiatric: No abnormal sleep pattern, No change in appetite Endo Endocrine: No fatigue, other or excessive sweating Aller/Imm Allergy/Immunologic: No lip swelling, tongue swelling, throat swelling, wheezing or itchy eyes Assessment AND Plan Problems 1. diabetes type 1 uncontrolled with senior care insulin 2. Hypothyroidism (acquired) E03.9 Plan Daily walking regarding of normal or high Bg; adjust insulin. Carfeful monitoring of BG and carb specific replacement snack as needed Secific documentation for me. Orders Orders: Medications New: Plan Detail Additional Comments 1. Please schedule follow up in 3 months. 2. Lab work one week before appointment. 3. Discussed importance of regular exercise and recommend starting or continuing a regular exercise program for good health. 4. The patient was encouraged to lose weight for good health 5. The importance of monitoring blood sugar regularly was reviewed. 6. The importance of monitoring the HBA1c level regularly was reviewed. 7. The importance of prper foot care and regularly checking feet to prevent sores and loss of limbs was reviewed. 8. The importance of keeping BP at or below 130/80 to prevent stroke, heart attacks, kidney failure, blindness was reviewed. Spent approximately 1 hour with patient with over 50% of time spent in discussion and counseling regarding medication adjustment, symptoms and treatment of hypoglycemia, diet adherence, and checking BG before driving. Coding Level of Care Code Off vis,est,level 4 Diagnoses diabetes type 1 uncontrolled with termite control service representative insulin Hypothyroidism (acquired) E03.9 Time Spent (min) 60 01/06/18 0842 <Electronically signed by Jenny WEBSTER> Date Jenny Mckeon Ramonitakrys TORCH BRAZER-C Cosigner Signature: Date (if applicable) CC: COMPREHENSIVE METABOLIC Collected: 01/04/2018 Status: F Source: NILO OLIVER 8:10 AM [facility] REPOSITORY TYPE CODE TESTS RESULT OUT OF RANGE REFERENCE UNITS LAB L501.0100 74-106 mg/dL High GLU 202 Result Comment: Glucose result greater than or equal to 200 mg/dL suggests DIABETES MELLITUS per A.D.A. criteria. Please note revised GLUCOSE reference range effective 2017. LAB L501.1000 7-18 mg/dL Normal BUN 16 LAB L501.1100 0.55-1.02 mg/dL Normal CREAT,SERUM 0.72 Result Comment: The validity of the calculated GFR AND GFRAA in patients over 70 years has not been determined. Clinical correlation is essential. LAB L501.1110 >60 mL/min Normal EST GFR 89 Result Comment: Non- GFR Calc LAB L501.1115 >60 mL/min Normal EST GFR - AA 108 Result Comment: GFR Calc LAB L501.1300 10-20 RATIO High BUN/CRE 22.2 LAB L501.1500 6.4-8.2 g/dL T Normal PROT 7.1 LAB L501.1800 3.2-5.0 g/dL Normal ALB 3.6 LAB L501.1950 2.2-4.2 g/dL Normal GLOB 3.5 LAB L501.2000 0.9-2.4 RATIO Normal A/G 1.0 LAB L501.2200 8.5-10.1 mg/dL CA Normal 8.8 LAB L501.4100 15-37 U/L Low AST 14 LAB L501.4305 45-117 U/L Normal ALK P 87 LAB L501.4405 13-56 U/L Normal ALT 24 LAB L501.4600 0.20-1.00 mg/dL T Normal BILI 0.40 LAB L501.5300 136-145 mmol/L NA Normal 140 LAB L501.5600 3.5-5.1 mmol/L K Normal 4.1 LAB L501.5900 98-107 mmol/L CL Normal 107 LAB L501.6100 21.0-32.0 mmol/L Normal CO2 26.0 LAB L501.6200 5-15 Normal GAP 7 Performed By: #### L500.4050, L500.4100, L501.9985 #### [facility] [address] [place], [place], [id number] LIPID PROFILE Collected: 01/04/2018 Status: F Source: IMPERIAL 8:10 AM [facility] REPOSITORY TYPE CODE TESTS RESULT OUT OF RANGE REFERENCE UNITS LAB L501.4900 200 mg/dL Normal CHOL 122 Result Comment: <200 mg/dL Desirable 200-240 mg/dL Borderline >240 mg/dL High Risk LAB L501.5000 mg/dL Normal TRIG 114 Result Comment: The drugs N-Acetylcysteine and Metamizole may falsely depress this assay. Serum Triglycerides Reference Interval Normal <150 mg/dL Borderline high 150 - 199 mg/dL High 200 - 499 mg/dL Very High > or = 500 mg/dL LAB L501.6400 mg/dL Low HDL 39 Result Comment: The drugs N-Acetylcysteine and Metamizole may falsely depress this assay. Reference Range HDL <40 mg/dL Low HDL Cholesterol HDL >or= 60 mg/dL High HDL Cholesterol LAB L501.6500 0-130 mg/dL Normal LDL 60 LAB L501.6600 5-40 mg/dL Normal VLDL 23 Performed By: #### L500.4050, L500.4100, L501.9985 #### [facility] [address] [place], [place], [id number] HEMOGLOBIN A1C Collected: 01/04/2018 Status: F Source: IMPERIAL 8:10 AM [facility] REPOSITORY TYPE CODE TESTS RESULT OUT OF RANGE REFERENCE UNITS LAB L501.9985 4.2-6.3 % High HGB A1C 9.1 Performed By: #### L500.4050, L500.4100, L501.9985 #### [facility] [address], [place], [id number] MICROALB:CREAT Collected: 01/04/2018 Status: F Source: IMPERIAL RATIO,RANDOM UR 8:10 AM [facility] REPOSITORY TYPE CODE TESTS RESULT OUT OF RANGE REFERENCE UNITS LAB L501.1200 NO RANGE EST. mg/dL Normal UR CREAT 110.00 LAB L502.0500 NO RANGE EST. mg/L Normal 11.5 MICROALBUMIN ,UR LAB L502.0600 <30 mg/g CRE mg/g CRE Normal 10.5 MALB:CREAT Performed By: #### L502.0250 #### [facility] [address] [place], [address] ENDOCRINOLOGY VISIT Observed: 10/01/2017 Status: F Source: NILO REPORT 4:42 PM [facility] REPOSITORY [facility] [address] [place], [place] [address] OFFICE VISIT Date of Service: 09/27/17 MR#: [id number] Acct: [id number] Name: CIRILO CEBALLOS Rep #: [id number] : 1965 Provider: Jenny Cooper NP Age/Sex: 52/F Location: [facility] [place] Status: Signed HPI History of present illness Cirilo Ceballos is a 52 year old female who presents for follow up of diabetes,type 1. Continues on levemir 13 units in am and 11 units in pm. Humalog coverage at meals is 5-7-13-0. Last visit a decrease in pm levemir was made and pt is no longer have low BG at night. Pt denies difficulty with injections or self monitoring of BG. Denies any signs of infection or irritation at site of injections. Reports taking insulin as directed At time of visit: -Pt denies symptoms of hypertensive emergency (CP,SOB,JENSEN, or blurred vision) and hypotension(dizziness or lightheadedness) -Pt denies symptoms of hypoglycemia ( sweaty, confusion, anxiety, tremor, hunger, palpitations) and hyperglycemia ( polydipsia, polyuria) -Pt denies potential medication adverse effect. Hypoglycemia Aware of hypoglycemia: When awake Able to self treat low BG: Yes Frequent low Bloo sugar: No Has supply of glucagon: Yes SMBG 4 checks daily in range in am High BG by 5pm and at 9pm Exercise Limited in the winter months Weight and fatigue symptoms: Denies snoring Cardiopulmonary symptoms: Denies chest pain at rest, dyspnea on exertion, lightheadedness or myalgias GI symptoms: Denies constipation, diarrhea, nausea/dyspepsia or vomiting Other symptoms: Denies blurry vision or change in vision Exam Const General: comfortable, well groomed, well hydrated Nutritional Appearance: average body habitus Orientation: oriented x3 [facility] Head: normal to inspection, normocephalic Ears: hearing grossly normal bilaterally Nose: external nose normal Mouth: oral mucosae normal, moist mucous membranes Teeth and gingiva: dentition normal Eyes General: appearance normal, both eyes and all related structures Eyelids: eyelids normal Conjunctivae: conjunctivae normal Cornea: corneas normal Pupils: PERRL Resp Effort AND Inspection: normal respiratory effort, able to speak in complete sentences, symmetric chest movement Auscultation: Bilateral: Clear to Auscultation Cardio Rate: regular rate Rhythm: regular rhythm Heart Sounds: S1 normal, S2 normal, no murmurs, no rubs GI Inspection: normal to inspection Auscultation: normal bowel sounds Palpation: soft, no guarding Skin General: no rashes or lesions noted Wounds: no wounds Diabetic Foot Pulses: L dorsalis pedis pulse: normal, R dorsalis pedis pulse: normal Monofilament test: Left foot: normal, Right foot: normal Neuro General: moves all extremities Cranial Nerves: CN's II-XI intact bilaterally Extrem General: no joint enlargement, no clubbing, cyanosis or edema Psych Appearance: well kempt Mental Status: mental status grossly normal Mood: congruent mood Affect: normal affect Speech and Movement: speech and movement normal Attitude: cooperative Thought Process: normal Thought Content: normal Judgment: judgment good Intake Vital Signs09/27/17 Height 5 ft 2 in 09/27/17 Weight: 138 lb 6 oz 09/27/17 Body Mass Index (BMI) 25.2 09/27/17 Blood Pressure 117/73 09/27/17 Blood Pressure Location Lt popliteal 09/27/17 Blood Pressure Position Sitting Intake Visit Reasons: 3 M FU 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 Required: No Accompanied by: Self Is patient in pain?: No Allergies No Known Allergies Allergy (Verified 09/27/17 11:41) Medications Lactobacillus acidophilus capsule 10 mg PO QDAY 06/26/17 [History Confirmed 09/27/17] atorvastatin 20 mg tablet 20 mg PO QDAY 06/26/17 [History Confirmed 09/27/17] insulin detemir (U-100) 100 unit/mL (3 mL) subcutaneous pen 13 unit SC TID ml 06/26/17 [History Confirmed 09/27/17] lisinopril 20 mg tablet 20 mg PO QDAY 06/26/17 [History Confirmed 09/27/17] loratadine 10 mg tablet 10 mg PO QDAY 06/26/17 [History Confirmed 09/27/17] multivitamin capsule 1 cap PO QAM 06/26/17 [History Confirmed 09/27/17] insulin lispro (U-200) 200 unit/mL (3 mL) subcutaneous pen See Label Instructions SC QAM #3 ml 06/27/17 [Rx Confirmed 09/27/17] pen needle, diabetic 31 gauge x 11/29 See Dose Instructions .ROUTE .MEDSUPPLY #150 ea 06/27/17 [Rx Confirmed 09/27/17] Is last menstrual period known: No Post menopausal: Yes Patient : No Nurse's Note: blood sugars : Low : 164 High : 398 PFSH Medical History Diabetes type 1, controlled (Acute) Diabetes type 1, controlled (Acute) History of carpal tunnel release (Acute) Hypothyroid (Acute) Hypothyroidism (Acute) Surgical History H/O lumpectomy (Acute) H/O: (Acute) History of (Acute) History of carpal tunnel release of both wrists (Acute) History of lumpectomy of right breast (Acute) Family History Mother Diabetes Bleeding disorder High cholesterol Cancer Heart disease Hypertension Mother Bleeding disorder Diabetes High cholesterol Cancer Heart disease Hypertension Social History Smoking Status: Never smoker second hand exposure: No alcohol intake: current substance use type: does not use ROS Const Constitutional: Positive for fatigue and night sweats; no anorexia, body ache, chills, fever(s), frequent falls, decreased energy, malaise, weakness, weight change, sleep problems, abnormal sleep pattern, change in appetite, other, headache(s), snoring or excessive sweating Eyes Eyes: No blurry vision, change in vision, double vision, discharge, dry eyes, bulging eyes, floaters, visual disturbances, eye pain, light sensitivity, spots in vision, tunnel vision or other ENT ENT: No abnormal hearing, ear pain, ear discharge, ear pressure, hearing loss, tinnitus, dizziness/vertigo, balance problems, nosebleed/epistaxis, nasal congestion, nasal obstruction, nose pain, sinus pressure, sinus pain, nasal discharge, post nasal drip, headache(s), facial pain, dental pain, dry mouth, bad breath, hoarseness, lip swelling, mouth lesions, mouth pain, sore throat, tongue swelling, throat swelling, other, difficulty swallowing or neck pain Resp Respiratory: No cough, change in phlegm color, chest congestion, excessive phlegm production, hemoptysis, pain on inspiration, shortness of breath, pain with cough, snoring, stridor, wheezing or other Cardio Cardiology: No chest pain at rest, chest pain with exertion, leg pain with exertion, excessive sweating, shortness of breath, dyspnea on exertion, generalized swelling, irregular heart rhythm, lightheadedness, orthopnea, radiating jaw, neck or arm pain, fast heart rate, slow heart rate, palpitations or other Gastro GI: No abdominal pain, belching, bloating, change in bowel habits, change in stool character, coffee ground emesis, constipation, cramping, diarrhea, heartburn, difficulty swallowing, feeling full early, excessive flatus, incontinent of stools, Vomiting blood/hematemesis, blood in stool, loose stools, Black,tarry stools, nausea/dyspepsia, pain with swallowing, vomiting or other Genitourinary-Female: No difficulty urinating, burning urination, painful urination, urinary incontinence, urinary frequency, urinary urgency, urinary hesitancy, urinary retention, blood in urine, Frequent nighttime urination/ nocturia, post void dribbling, suprapubic fullness, side pain, sexual problems, genital lesions, genital itching, hot flashes, abnormal periods, abnormal vaginal bleeding, absent period, painful periods, light periods, heavy periods, difficulty getting , painful intercourse, pelvic pain, vaginal dryness, vaginal odor, Vaginal Itching or other Musc Musculoskeletal: No abnormal walking, joint pain, back pain, deformity, joint swelling, limited range of motion, loss of height, muscle cramps, muscle weakness, decreased muscle mass, body aches, neck pain, numbness, radiating pain into limb, stiffness, tingling or other Neuro Neurology: No frequent falls, weakness, visual disturbances, abnormal hearing, headache(s), abnormal walking, numbness or tingling Psych Psychiatric: No abnormal sleep pattern, No change in appetite Endo Endocrine: Positive for fatigue; no other or excessive sweating Aller/Imm Allergy/Immunologic: No lip swelling, tongue swelling, throat swelling or wheezing Assessment AND Plan Problems 1. diabetes type 1 uncontrolled with senior care insulin 2. Hypothyroidism (acquired) E03.9 Orders Orders: Plan Detail Additional Comments 1. Please schedule follow up in 3 months. 2. Lab work one week before appointment. 3. Discussed importance of regular exercise and recommend starting or continuing a regular exercise program for good health. 4. The patient was encouraged to lose weight for good health 5. The importance of monitoring blood sugar regularly was reviewed. 6. The importance of monitoring the HBA1c level regularly was reviewed. 7. The importance of prper foot care and regularly checking feet to prevent sores and loss of limbs was reviewed. 8. The importance of keeping BP at or below 130/80 to prevent stroke, heart attacks, kidney failure, blindness was reviewed. Spent approximately 30 minutes with patient with over 50% of time spent in discussion and counseling regarding medication adjustment, symptoms and treatment of hypoglycemia, diet adherence, and checking BG before driving. Coding Level of Care Code Off vis,est,level 4 Diagnoses diabetes type 1 uncontrolled with senior care insulin Hypothyroidism (acquired) E03.9 Time Spent (min) 30 10/01/17 1642 <Electronically signed by Jenny WEBSTER> Date Jenny WEBSTER Cosigner Signature: Date (if applicable) CC: ALLERGIES ALLERGIES DATE TYPE / CODE NAME / CODE REACTION SEVERITY SOURCE 04/04/2018 Drug No Known Unknown [facility] Allergy/4160 Allergies/F00 [facility] [address]7574(SNOMED [id number](RXNOR Repository CT) M) ENCOUNTERS ENCOUNTERS ADMIT/DISCHARGE ACCOUNT ADMITTING ENCOUNTER LOCATION SOURCE NUMBER CLASS 07/03/2018 [id number] Ambulatory [place] 8 [facility] ing: Repository 07/02/2018 [id number] Ambulatory [place] 1 [facility] ing:[facility] Repository 07/02/2018/ [id number] Ambulatory BMSBuilding:B [place] 8 4 [facility] Repository 04/09/2018/ [id number] Ambulatory BMSBuilding:B [place] 8 8 [facility] Repository 04/04/2018/ [id number] Ambulatory BMSBuilding:B [place] 8 1 [facility] Repository 01/04/2018 [id number] Ambulatory [place] 0 [facility] 01/03/2018/ [id number] Ambulatory BMSBuilding:B [place] 8 4 [facility] Repository 09/27/2017 [id number] Ambulatory BMSBuilding:B [place] 1 [facility] Repository 09/27/2017/ [id number] Ambulatory BMSBuilding:B [place] 8 4 [facility] Repository PAYERS PAYERS ENCOUNTER GUARANTOR PAYER SUBSCRIBER SOURCE 07/03/2018 OBDULIA MACKEYIP280 E Primary OBDULIA Gannon SNIPDOB: [place] [address] Insurance:MEDICAL [id number] [address]Iks: (616) Number: Repository [phone] () [id number] Date:[id number] [address]LP: 07/03/2018 Secondary NOT GIVENUNK [place] Insurance:SELF PAY [facility] Number: Effective Repository Date:2018-07-02 07/02/2018 OBDULIA MACKEYIP280 E Primary OBDULIA MACKEYIPDOB: [place] [address] Insurance:MEDICAL [id number]. Elizabeth Hospital [address]Wqd: (616) Number: Repository [phone] () [id number] Date:[id number] [address] [address]AP: 07/02/2018 Secondary NOT GIVENUNK [place] Insurance:SELF PAY [facility] Number: Effective Repository Date:2018-07-02 07/02/2018 Obdulia Mackeyip280 E Primary OBDULIA G[place] SNIPDOB: [place] [address] Insurance:MEDICAL [id number]. Elizabeth Hospital [address]Ewz: (616) Number: Repository [phone] () [id number] Date:1505-52-95MQ [place] [id number]: 07/02/2018 Secondary NOT GIVENUNK [place] Insurance:SELF PAY [facility] Number: Effective Repository Date:2018-07-02 04/09/2018 Obdulia Mackeyip280 E Primary OBDULIA G[place] SNIPDOB: [place] [address] Insurance:MEDICAL [id number]. Elizabeth Hospital [id number]: (616) Number: Repository [phone] () [id number] Date:2810-18-40PK [place] [id number]: 04/09/2018 Secondary NOT GIVENUNK [place] Insurance:SELF PAY [facility] Number: Effective Repository Date:2018-04-09 04/04/2018 Obdulia Mackeyip280 E Primary OBDULIA Gannon SNIPDOB: [place] [address] Insurance:MEDICAL [id number]. Elizabeth Hospital [id number]: (616) Number: Repository [phone] () [id number] Date:0724-54-50JF [place] [id number]: 04/04/2018 Secondary NOT GIVENUNK [place] Insurance:SELF PAY [facility] Number: Effective Repository Date:2018-04-04 01/04/2018 Obdulia Mackeyip280 E Primary OBDULIA Gannon SNIPDOB: [place] [address] Insurance:MEDICAL [id number]. Elizabeth Hospital [id number]: (616) Number: Repository [phone] () [id number] Date:[id number] [address] [place] [phone]: 01/04/2018 Secondary NOT GIVENUNK [place] Insurance:SELF PAY [facility] Number: Effective Repository Date:2018-01-04 01/03/2018 Obdulia Mackeyip280 E Primary OBDULIA G[place] SNIPDOB: [place] [address] Insurance:MEDICAL [id number] Lady of Mercy Hospital [address]Qli: ([phone]) Number: Repository [phone] () [id number] Date:6854-14-08OD [address] [place], [place] [phone]: 01/03/2018 Secondary NOT GIVENUNK [place] Insurance:SELF PAY [facility] Number: Effective Repository Date:2018-01-03 09/27/2017 Obdulia Mackeyip280 E Primary Obdulia SnipDOB: [place] [address] Insurance:MEDICAL [id number] Lady of Mercy Hospital [address]Zad: (828) Number: Repository [phone] () [id number] Date:5936-77-47ZT [address] [place] [address]UX: 09/27/2017 Secondary NOT GIVENUNK [place] Insurance:SELF PAY [facility] Number: Effective Repository Date:2017-09-06 09/27/2017 Obdulia Xuij065 [address] Primary Obdulia SnipDOB: [place] [address] Insurance:MEDICAL [id number] Lady of Mercy Hospital [address]Azr: (828) Number: Repository [phone] () [id number] Date:5061-87-29FY [address] [place] [address]QD: 09/27/2017 Secondary NOT GIVENUNK [place] Insurance:SELF PAY [facility] Number: Effective Repository Date:2017-09-06
== END ==
PROVIDERS: Family Provider Internal Medicine; PCP Internal Medicine; Referring Provider Nurse Practitioner; Visit Provider Nurse Practitioner
DX: E10.65 Type 1 diabetes mellitus with hyperglycemia (principal); E03.9 Hypothyroidism, unspecified
CPT/HCPCS: 36415; 80053; 83036; 84443

== ENCOUNTER → 2018-07-03 08:51 | Outpatient (CLI) | payer OTHER, SELFPAY ==
[2018-07-02 10:03] VITALS: BMI 26.4
--- NOTE | 2018-07-03 08:53 | US_ITS ---
STUDY: THYROID ULTRASOUND REASON FOR EXAM: Female, 53 years old. Nodule, hypothyroidism TECHNIQUE: Ultrasound evaluation of the thyroid was performed with real-time and static robin-scale imaging. COMPARISON: June 28, 2017 thyroid ultrasound FINDINGS: RIGHT LOBE: The right lobe of the thyroid gland measures 4.6 x 1.9 x 1.2 cm. There is a heterogeneous echotexture. There is a 9 x 9 x 8 mm hyperechoic nodule within the right thyroid. LEFT LOBE: The left lobe of the thyroid gland measures 4.5 x 1.9 x 1.3 cm. There is a heterogeneous echotexture. There are no demonstrated solid, cystic or complex lesions. Prior study showed what likely represented inferiorly located calcification this is partially seen on today's study. ISTHMUS: The isthmus measures 4 mm . The regional lymph nodes are normal. US/Thyroid IMPRESSION: Heterogeneous bilateral thyroid compatible with multinodular thyroid. There is a relative isoechoic component in the right thyroid gland measuring 9 x 9 x 8 mm which is similar to the prior study allowing for differences in technique. There are punctate calcifications in the inferior aspect of the right thyroid. Recommend continued follow-up. Electronically Signed: Mary Ellen Crawford MD at 2:57 EST Tel , Service support ,
--- OUTSIDE RECORDS SUMMARY | 2018-10-04 14:54 | XMS RPT_ITS ---
:1965 Author Organization [facility] Support Name Relationship Address Phone S Unavailable Unavailable Unavailable SNOBDULIA DAVALOS Unavailable [address] + [place] [address] S Unavailable Unavailable Unavailable OBDULIA CEBALLOS Unavailable [address] + [place] [address] S Unavailable Unavailable Unavailable SNOBDULIA DAVALOS Unavailable [address] + [place] [address] S Unavailable Unavailable Unavailable OBDULIA CEBALLOS Unavailable [address] + [place] [address] S Unavailable Unavailable Unavailable SNOBDULIA DAVALOS Unavailable [address] + [place] [address] S Unavailable Unavailable Unavailable OBDULIA CEBALLOS Unavailable [address] + [place] [address] S Unavailable Unavailable Unavailable OBDULIA CEBALLOS Unavailable [address] + [place] [address] S Unavailable Unavailable Unavailable OBDULIA CEBALLOS Unavailable [address] + [place] [address] S Unavailable Unavailable Unavailable SNOBDULIA DAVALOS Unavailable [address] + [place] [address] Care Team Providers Name Role Phone Jenny Cooper NP-C Attending Unavailable Jarrell, Cecy Referring Unavailable Jenny Cooper NP-C Attending Unavailable Jenny Cooper NP-Trina Referring Unavailable Jarrell, Cecy Primary Care Unavailable Jenny Cooper NP-C Attending Unavailable Jarrell, Cecy Referring Unavailable Jenny Cooper NP-C Attending Unavailable Melyssa Dowd Referring Unavailable Jarrell, Cecy Primary Care Unavailable Jenny Cooper NP-C Attending Unavailable Jarrell, Cecy Referring Unavailable Shook, Jenny J DRY CLEANER PRESSER-C Attending Unavailable ShoJenny marcano DRY CLEANER PRESSER-C Referring Unavailable Jarrell, Cecy Primary Care Unavailable ShookJenny DRY CLEANER PRESSER-C Attending Unavailable ShookJenny DRY CLEANER PRESSER-C Referring Unavailable Jarrell, Cecy Primary Care Unavailable ShookJenny DRY CLEANER PRESSER-C Attending Unavailable Jarrell, Cecy Referring Unavailable Shook Jenny J DRY CLEANER PRESSER-C Attending Unavailable Jarrell, Cecy Referring Unavailable Jarrell, Cecy Primary Care Unavailable PROBLEMS PROBLEMS DATE TYPE CONDITION / CODE ATTENDING STATUS SOURCE 07/02/2018 Unknown E10.65 - Type 1 Jenny Cooper Active [place] diabetes mellitus DRY CLEANER PRESSER-C Community with hyperglycemia Hospital / E10.65(ICD-10) Repository 07/02/2018 Unknown E03.9 - Jenny Cooper Active [place] Hypothyroidism, DRY CLEANER PRESSER-C Community unspecified / Hospital E03.9(ICD-10) Repository 04/09/2018 Unknown E10.9 - Type 1 Jenny Cooper Active [place] diabetes mellitus DRY CLEANER PRESSER-C Community without Hospital complications / Repository E10.9(ICD-10) 04/04/2018 Unknown E11.65 - Type 2 Jenny Cooper Active [place] diabetes mellitus DRY CLEANER PRESSER-C Community with hyperglycemia Hospital / E11.65(ICD-10) Repository 01/03/2018 Unknown E11.9 - Type 2 Jenny Cooper Active [place] diabetes mellitus DRY CLEANER PRESSER-C Community without Hospital complications / Repository E11.9(ICD-10) PROCEDURES PROCEDURES No Procedure Records FoundRESULTS RESULTS THYROID Observed: 07/03/2018 Status: F Source: [place] 8:53 AM [facility] HOSPITAL REPOSITORY [facility] Imaging Services [address] [place] [address] Thyroid MR#: [id number] Acct: [id number] Name: CIRILO CEBALLOS Rep #: [id number] : 1965 F 53 From: Mary Ellen Crawford MD PCP: Cecy Vieyra DO Status: REG CLI Study: Thyroid Date of Exam: 07/03/18 Exam# [id number] Ordering Dr: Jenny Cooper STUDY: THYROID ULTRASOUND [...] CC: Jenny Cooper NP; Cecy Vieyra DO Aeronautics Teacher: Signed ENDOCRINOLOGY VISIT Observed: 07/02/2018 Status: F Source: [place] REPORT 1:06 PM [facility] HOSPITAL REPOSITORY [facility] [address] [place] [address]. [address] [place] [address] OFFICE VISIT Date of Service: 07/02/18 MR#: [id number] Acct: [id number] Name: CIRILO CEBALLOS Rep #: [id number] : 1965 Provider: Jenny Cooper NP Age/Sex: 53/F Location: [facility] Status: Signed HPI History of present illness [...] Position Sitting Intake Visit Reasons: Diabetes follow-up Precision Lens Generator Required: No Accompanied by: Self Allergies No [...] #150 ea 06/27/17 [Rx Confirmed 07/02/18] FreeStyle [place] Lite kit See Dose Instructions .ROUTE .MEDSUPPLY [...] : low : 82 high : 442 [facility] Medical History Diabetes type 1, controlled (Acute) [...] 07/02/2018 Status: F Source: [place] 11:28 AM [facility] REPOSITORY TYPE CODE TESTS RESULT OUT OF RANGE REFERENCE UNITS LAB L501.9985 4.2-6.3 % High HGB A1C 9.0 Performed By: #### L501.9985 #### [facility] [address] [place], [place], [address] COMPREHENSIVE METABOLIC Collected: 07/02/2018 Status: F Source: [place] [facility] 11:28 AM [facility] REPOSITORY TYPE CODE TESTS RESULT OUT OF [...] 5 Performed By: #### L500.4050, L501.9520 #### [facility] [address] [facility]. [place], [place], [address] THYROID STIM HORMONE Collected: 07/02/2018 Status: F Source: [place] (TSH) 11:28 AM [facility] REPOSITORY TYPE CODE TESTS RESULT OUT OF RANGE REFERENCE UNITS LAB L501.9520 0.358-3.74 uIU/mL Normal TSH 3.33 Performed By: #### L500.4050, L501.9520 #### [facility] [address] [facility]. [place], [place], [address] ENDOCRINOLOGY VISIT Observed: 04/05/2018 Status: F Source: [place] REPORT 8:25 AM [facility] REPOSITORY [facility] [address] [place] [address]. [address] [place] [address] OFFICE VISIT Date of Service: 04/04/18 MR#: [id number] Acct: [id number] Name: CIRILO CEBALLOS Rep #: [id number] : 1965 Provider: Jenny Cooper NP Age/Sex: 53/F Location: [facility] Status: Signed with Addenda ADDENDUM by Jenny [...] Position Sitting Intake Visit Reasons: Follow up Precision Lens Generator Required: No Accompanied by: Self Is patient [...] #150 ea 06/27/17 [Rx Confirmed 04/04/18] FreeStyle [place] Lite kit See Dose Instructions .ROUTE .MEDSUPPLY [...] E03.9 2. 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 [place] [address] OFFICE VISIT Date of Service: 01/03/18 MR#: [id number] Acct: [id number] Name: CIRILO CEBALLOS Rep #: [id number] : 1965 Provider: Jenny Cooper NP Age/Sex: 52/F Location: [facility] Status: Signed HPI History of present illness [...] Position Sitting Intake Visit Reasons: 3 M Precision Lens Generator Required: No Accompanied by: Self Is patient [...] #150 ea 06/27/17 [Rx Confirmed 01/03/18] FreeStyle [place] Lite kit See Dose Instructions .ROUTE .MEDSUPPLY [...] Problems 1. diabetes type 1 uncontrolled with halfway insulin 2. Hypothyroidism (acquired) E03.9 Plan Daily [...] 4 Diagnoses diabetes type 1 uncontrolled with marine oil terminal superintendent insulin Hypothyroidism (acquired) E03.9 Time Spent (min) 60 01/06/18 0842 <Electronically signed by Jenny WEBSTER> Date Jenny Mckeon Ramonitakrys DRY CLEANER PRESSER-C Cosigner Signature: Date (if applicable) CC: COMPREHENSIVE METABOLIC Collected: 01/04/2018 Status: F Source: [place] 8:10 AM [facility] REPOSITORY TYPE CODE TESTS RESULT OUT OF [...] Performed By: #### L500.4050, L500.4100, L501.9985 #### [facility] [address] [place], [place], [id number] LIPID PROFILE Collected: 01/04/2018 Status: F Source: [place] 8:10 AM [facility] REPOSITORY TYPE CODE TESTS RESULT OUT OF [...] Performed By: #### L500.4050, L500.4100, L501.9985 #### [facility] [address] [place], [place], [id number] HEMOGLOBIN A1C Collected: 01/04/2018 Status: F Source: [place] 8:10 AM [facility] REPOSITORY TYPE CODE TESTS RESULT OUT OF RANGE REFERENCE UNITS LAB L501.9985 4.2-6.3 % High HGB A1C 9.1 Performed By: #### L500.4050, L500.4100, L501.9985 #### [facility] [address] [place], [place], [id number] MICROALB:CREAT Collected: 01/04/2018 Status: F Source: [place] RATIO,RANDOM UR 8:10 AM [facility] REPOSITORY TYPE CODE TESTS RESULT OUT OF RANGE REFERENCE UNITS LAB L501.1200 NO RANGE EST. mg/dL Normal UR CREAT 110.00 LAB L502.0500 NO RANGE EST. mg/L Normal 11.5 MICROALBUMIN ,UR LAB L502.0600 <30 mg/g CRE mg/g CRE Normal 10.5 MALB:CREAT Performed By: #### L502.0250 #### [facility] [address] [place], [address] ENDOCRINOLOGY VISIT Observed: 10/01/2017 Status: F Source: [place] REPORT 4:42 PM [facility] REPOSITORY [facility] [address] [place], [place] [address] OFFICE VISIT Date of Service: 09/27/17 MR#: [id number] Acct: [id number] Name: CIRILO CEBALLOS Rep #: [id number] : 1965 Provider: Jenny Cooper NP Age/Sex: 52/F Location: [facility] Status: Signed HPI History of present illness [...] Appearance: average body habitus Orientation: oriented x3 [facility] Head: normal to inspection, normocephalic Ears: hearing [...] Sitting Intake Visit Reasons: 3 M FU Precision Lens Generator Required: No Accompanied by: Self Is patient [...] Problems 1. diabetes type 1 uncontrolled with halfway insulin 2. Hypothyroidism (acquired) E03.9 Orders Orders: [...] 4 Diagnoses diabetes type 1 uncontrolled with halfway insulin Hypothyroidism (acquired) E03.9 Time Spent (min) 30 10/01/17 1642 <Electronically signed by Jenny WEBSTER> Date Jenny WEBSTER Cosigner Signature: Date (if applicable) CC: ALLERGIES ALLERGIES DATE TYPE / CODE NAME / CODE REACTION SEVERITY SOURCE 04/04/2018 Drug No Known Unknown [facility] Allergy/4160 Allergies/F00 [facility] [address](SNOMED 9222173(RXNOR Repository CT) M) ENCOUNTERS ENCOUNTERS ADMIT/DISCHARGE ACCOUNT ADMITTING ENCOUNTER LOCATION SOURCE NUMBER CLASS 07/03/2018 [id number] Ambulatory [place] 8 [facility] ing: Repository 07/02/2018 [id number] Amb[facility] [place] 1 [facility] ing:[facility] Repository 07/02/2018/ [id number] Ambulatory [facility]:B [place] 8 4 [facility] Repository 04/09/2018/ [id number] Ambulatory [facility] [place] 8 8 [facility] Repository 04/04/2018/ [id number] Ambulatory B[facility]Building:B [place] 8 1 [facility] Repository 01/04/2018 [id number] [facility] [place] 0 [facility] 01/03/2018/ [id number] Ambulatory BMSBuilding:B [place] 8 4 [facility] Repository 09/27/2017 [id number] Ambulatory [facility] [place] 1 [facility] Repository 09/27/2017/ [id number] Ambulatory BMSBuilding:B [place] 8 4 [facility] Repository PAYERS PAYERS ENCOUNTER GUARANTOR PAYER SUBSCRIBER SOURCE 07/03/2018 OBDULIA MACKEYIP280 E Primary OBDULIA [place] SNIPDOB: [place] [address] Insurance:MEDICAL [id number] [address]Waf: (616) Number: Repository [phone] () [id number] Date:[id number] [address]GD: 07/03/2018 Secondary NOT GIVENUNK [place] Insurance:SELF PAY [facility] Number: Effective Repository Date:2018-07-02 07/02/2018 OBDULIA MACKEYIP280 E Primary OBDULIA MACKEYIPDOB: [place] [address] Insurance:MEDICAL [id number] [address]Oay: (616) Number: Repository [phone] () [id number] Date:8210-28-03DN [address] [phone]: 07/02/2018 Secondary NOT GIVENUNK [place] Insurance:SELF PAY [facility] Number: Effective Repository Date:2018-07-02 07/02/2018 Obdulia Makceyip280 [address] Primary OBDULIA [place] SNIPDOB: [place] [address] Insurance:MEDICAL [id number] [address]Hlz: (616) Number: Repository [phone] () [id number] Date:8522-87-31RO [place] [id number]: 07/02/2018 Secondary NOT GIVENUNK [place] Insurance:SELF PAY [facility] Number: Effective Repository Date:2018-07-02 04/09/2018 Obdulia Mackeyip280 [address] Primary OBDULIA [place] SNIPDOB: [place] [address] Insurance:MEDICAL [id number] [address]Kpl: (616) Number: Repository [phone] () [id number] Date:2445-55-68AT [place] [id number]: 04/09/2018 Secondary NOT GIVENUNK [place] Insurance:SELF PAY [facility] Number: Effective Repository Date:2018-04-09 04/04/2018 Obdulia Mackeyip280 [address] Primary OBDULIA [place] SNIPDOB: [place] [address] Insurance:MEDICAL [id number] [address]Atb: (616) Number: Repository [phone] () [id number] Date:7098-31-23DW [place] [id number]: 04/04/2018 Secondary NOT GIVENUNK [place] Insurance:SELF PAY [facility] Number: Effective Repository Date:2018-04-04 01/04/2018 Obdulia Mackeyip280 [address] Primary OBDULIA [place] SNIPDOB: [place] [address] Insurance:MEDICAL [id number] [address]Myq: (616) Number: Repository [phone] () [id number] Date:3782-23-04XX [address] [place] [phone]: 01/04/2018 Secondary NOT GIVENUNK [place] Insurance:SELF PAY [facility] Number: Effective Repository Date:2018-01-04 01/03/2018 Obdulia Mackeyip280 [address] Primary OBDULIA [place] SNIPDOB: [place] [address] Insurance:MEDICAL [id number] Hospital [address]Yze: (828) Number: Repository [phone] () [id number] Date:6004-92-52XY [address] [place], [place] [phone]: 01/03/2018 Secondary NOT GIVENUNK [place] Insurance:SELF PAY [facility] Number: Effective Repository Date:2018-01-03 09/27/2017 Obdulia Mackeyip280 [address] Primary Obdulia SnipDOB: [place] [address] Insurance:MEDICAL [id number] Hospital [address]Fkg: (828) Number: Repository [phone] () [id number] Date:7343-43-35JO [address] [place] [phone]: 09/27/2017 Secondary NOT GIVENUNK [place] Insurance:SELF PAY [facility] Number: Effective Repository Date:2017-09-06 09/27/2017 Obdulia Tohc[address] Primary Obdulia SnipDOB: [place] [address] Insurance:MEDICAL [id number] Hospital [address]Onn: (828) Number: Repository [phone] () [id number] Date:7709-08-68NK [address] [place] [phone]: 09/27/2017 Secondary NOT GIVENUNK [place] Insurance:SELF PAY [facility] Number: Effective Repository Date:2017-09-06
== END ==
PROVIDERS: Family Provider Internal Medicine; PCP Internal Medicine; Referring Provider Nurse Practitioner; Visit Provider Nurse Practitioner
DX: E03.9 Hypothyroidism, unspecified (principal)
CPT/HCPCS: 76536

== ENCOUNTER 2018-11-14 06:01 | Day surgery (SDC) | payer OTHER, SELFPAY ==
[2018-10-08 13:19] VITALS: BMI 26.4
--- NOTE | 2018-10-08 13:43 | HP_ITS ---
R#: [id number] Acct: [id number] Name: CIRILO POZO Rep #: [id number] : 1965 Provider: Sabino Miguel MD Age/Sex: 53/F Location: [facility] Status: Signed Intake Vital Signs 10/08/18 Body Mass Index (BMI) 26.4 10/08/18 Height 5 ft 2 in 10/08/18 Weight: 146 lb 10/08/18 Body Mass Index (BMI) 26.6 10/08/18 Blood Pressure 151/82 H 10/08/18 Blood Pressure Location Rt brachial 10/08/18 Blood Pressure Position Sitting 10/08/18 Respiratory Rate 18 10/08/18 Pulse Rate 85 10/08/18 Temperature 97.7 F L 10/08/18 Temperature Source Oral Intake Visit Reasons: Thyroid Nodules/[facility] 06/2018 Mine Surveyor Required: No Is patient in pain?: No Allergies No Known Allergies Allergy (Verified 10/08/18 13:18) Medications Lactobacillus acidophilus capsule 10 mg PO QDAY 06/26/17 [History Confirmed 10/08/18] loratadine 10 mg tablet 10 mg PO QDAY 06/26/17 [History Confirmed 10/08/18] multivitamin capsule 1 cap PO QAM 06/26/17 [History Confirmed 10/08/18] pen needle, diabetic 31 gauge x 11/29 See Dose Instructions .ROUTE .MEDSUPPLY #150 ea 06/27/17 [Rx Confirmed 10/08/18] FreeStyle [place] Lite kit See Dose Instructions .ROUTE .MEDSUPPLY #1 ea NS 11/06/17 [Rx Confirmed 10/08/18] FreeStyle Lancets 28 gauge See Dose Instructions .ROUTE .MEDSUPPLY #100 ea NS 11/06/17 [Rx Confirmed 10/08/18] FreeStyle Lite Strips See Dose Instructions .ROUTE .MEDSUPPLY #150 ea NS 11/06/17 [Rx Confirmed 10/08/18] lisinopril 20 mg tablet 20 mg PO QDAY #90 tab 03/21/18 [Rx Confirmed 10/08/18] flash glucose scanning reader See Dose Instructions .ROUTE .MEDSUPPLY #1 ea 04/04/18 [Rx Confirmed 10/08/18] flash glucose sensor kit See Dose Instructions .ROUTE .MEDSUPPLY #3 ea 04/04/18 [Rx Confirmed 10/08/18] flash glucose sensor kit See Dose Instructions .ROUTE .MEDSUPPLY #2 ea 07/02/18 [Rx Confirmed 10/08/18] FreeStyle Anitra 14 Day [place] See Dose Instructions .ROUTE .MEDSUPPLY #1 ea NS 07/16/18 [Rx Confirmed 10/08/18] insulin lispro (U-200) 200 unit/mL (3 mL) subcutaneous pen See Rx Instructions SC QAM #3 ml 07/16/18 [Rx Confirmed 10/08/18] insulin detemir (U-100) 100 unit/mL (3 mL) subcutaneous pen 13 unit SC BID #9 ml 07/30/18 [Rx Confirmed 10/08/18] BD Ultra-Fine Viviana Pen Needle 32 gauge x See Dose Instructions .ROUTE .MEDSUPPLY #150 ea NS 08/20/18 [Rx Confirmed 10/08/18] atorvastatin 20 mg tablet 20 mg PO QDAY #90 tab 10/02/18 [Rx Confirmed 10/08/18] [facility] Medical History Diabetes type 1, controlled (Acute) Diabetes type 1, controlled (Acute) Hypothyroid (Acute) Hypothyroidism (Acute) Surgical History H/O lumpectomy (Acute) H/O: (Acute) History of (Acute) History of carpal tunnel release (Acute) History of carpal tunnel release of both wrists (Acute) History of lumpectomy of right breast (Acute) Family History Mother Diabetes Bleeding disorder High cholesterol Cancer Heart disease Hypertension Mother Bleeding disorder Diabetes High cholesterol Cancer Heart disease Hypertension Social History Smoking Status: Never smoker second hand exposure: No alcohol intake: current substance use type: does not use ROS General General: Yes fatigue; no weight change, appetite, colon cancer, breast cancer or weakness HEENT HEENT: Yes difficulty swallowing; no eye injury, eye surgery, swollen glands or hoarseness Endo Endocrine: Yes thyroid disease and diabetes mellitus; no thyroid cancer, Hair loss, heat intolerance or cold intolerance Skin Skin: No rash or changing moles Breast Breast: No left breast lump, right breast lump, nipple discharge, breast pain, abnormal mammogram, abnormal US or breast enlargement Musc Musculoskeletal: No back problems, arthritis, rheumatoid arthritis, gout or joint pain Cardio Cardiovascular: Yes high blood pressure; no murmur, pacemaker, heart disease, atrial fibrillation, heart attack, heart stent, palpitations, shortness of breat with exertion or chest pain Psych Psychiatric: Yes anxiety; no depression or hearing voices Resp Respiratory: No shortness of breath, No sleep apnea, Yes cough, No COPD, No asthma, No emphysema, No wheezing Gastro Gastrointestinal: No abdominal pain, No nausea or vomiting, No diarrhea, No constipation, No blood in stool, No acid reflux, No hemorrhoids, No ulcers, No gallbladder problem, No black,tarry stools Ciaran Hematologic: No blood thinners, No blood disorders, No bleeding, No anemia, No blood clots Neuro Neurologic: No system reviewed and no additional complaints, except as docu, No as per HPI, No abnormal walking, No abnormal hearing, No abnormal movements, No abnormal speech, No behavioral changes, No burning sensations, No confusion, No seizure-like activity, No unsteadiness, No dizziness, No localized weakness, No frequent falls, No headache(s), No lack of coordination, No loss of vision, No memory loss, No numbness, No other visual disturbances, No radiating pain, No restless legs, No sensory deficit, No fainting, No tingling, No tremor(s), No weakness, No other Exam Const General: no acute distress, well developed, well hydrated Orientation: oriented to person, oriented to place, oriented to time [facility] Head: normocephalic, atraumatic Ears: external ears normal Mouth: moist mucous membranes Other: No hard nodules are identified within the thyroid itself. There is no lymphadenopathy bilaterally there is no neck tenderness noted bilaterally Eyes Sclera: sclerae normal Pupils: normal by confrontation Neck Neck: no lymphadenopathy noted Neck mass: No Thyroid: thyroid normal, symmetrical Chest Chest palpation & inspection: normal inspection of the chest Breast Palpation: No nipple discharge Resp Effort & Inspection: normal respiratory effort Auscultation: clear to auscultation bilaterally Percussion: percussion normal Cardio Rate: regular rate Rhythm: regular rhythm Heart Sounds: no murmurs GI Palpation: soft, no hepatosplenomegaly, no masses, nontender Rectal Exam: other Other: Rectal exam deferred. Extrem General: normal to inspection, no clubbing, cyanosis or edema Assessment & Plan Problems 1. Multinodular goiter (nontoxic) E04.2 2. Screening for colon cancer Z12.11 Plan At the present time I do not believe the patient needs to have any final L aspirations done to her thyroid gland. I believe a yearly thyroid ultrasound would be warranted if the nodule is larger than 1 cm at that time and we will entertain the thought of performing a fine-needle aspiration. The patient does however need to have a colonoscopy. . I have offered the patient colonoscopy for evaluation. I have explained the risks/benefits of the procedure and described the procedure. I have discussed the risks with the patient, including but not limited to: infection, bleeding, perforation of the GI tract requiring emergency surgery, inability to complete the procedure, injury to any internal organs, complications of anesthesia, etc. - the patient understands and agrees to proceed. I have answered all the patient's questions to the patient's satisfaction and the patient has no further questions. The patient has been given instructions for the colon cleansing preparation. Coding Level of Care Code Off vis,new,level 3 Diagnoses Multinodular goiter (nontoxic) E04.2 Screening for colon cancer Z12.11
[2018-11-14 06:26] VITALS: BP 117/59; PULSE 72; RESP 16; TEMP 36.3; O2SAT 100; BMI 25.7
--- NOTE | 2018-11-14 07:00 | COLBX_PTH ---
PATIENT: CIRILO POZO LOC: EN U#:[id number] AGE/SX: 53/F ROOM: RE11/14/[address]: Dr. Sabino Miguel MD : 1965 BED: DIS: 11/14/2018 SPEC #: [id number] RECD: 11/14/18 10:26 STATUS: LAURA JOSUÉ #: [id number] OWEN: 11/14/18 07:[address]: Sabino Miguel DEPT: SURGICAL PATHOLOGY RECD BY: Adeola Whitney ENTERED: 11/14/18 11:38 SP TYPE: COLON BX OTHR DR: Melyssa Dowd, REIMBURSEMENT MANAGER-C Tissues: Ascending colon Procedures: Surgery Specimen Level IV HEADER OPERATION: Colonoscopy (MAC) PRE-OP DIAGNOSIS: Screening TISSUE SUBMITTED: Ascending polyp MICROSCOPIC DIAGNOSIS Ascending colon polyp: Inflammatory polyp with ulceration, acute inflammation and regenerative change. CE:wendy 11/15/18 COMMENT Case has been reviewed in consultation with Dr. Schofield who concurs with the above diagnosis. IDC:SJ MICROSCOPIC DESCRIPTION Slides are reviewed. GROSS DESCRIPTION Received in fixative is one container labeled with the patient's name and designated ascending polyp. The specimen consists of multiple irregular fragments of mendoza soft tissue mixed with fecal material that in aggregate measure 2.5 x 1 x 0.1 cm. The specimen is totally submitted in one cassette. / VAL:wendy 11/14/18 TC:2 CPT: 45896
--- NOTE | 2018-11-14 07:03 | PCM.HP.STD ---
Problem List (1) Colon cancer screening Status: Acute History of Present Illness Date of Admission: 11/14/18 CIRILO POOZ, is a 53 F who presents to the office today for for evaluation of 2 problems. Patient has a known history of multinodular goiter. She had a most recent ultrasound completed a [facility] on 07/03/2018 that showed a 9 mm nodule in the right lobe. Left lobe did not notice any demonstratable solid or cystic lesions but it did have a inferior located calcification. It was similar in the previous ultrasound. She has had no difficulty swallowing she has had no neck pain. She has never had a thyroid biopsy. The patient has never had a colonoscopy. She states that she moves her bowels regularly and has had no abdominal pain. She has not noticed any hematochezia or melena. 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 Pt not feeling any difficulty with swallowing at todays visit Medical History: Medical History (Last Reviewed 11/14/18 @ 07:04 by Sabino Miguel MD) Diabetes type 1, controlled E10.9 dx : 10/25 last exacerbation : dka : never hypoglycemic episode : never er visit : never Diabetes type 1, controlled E10.9 Hypothyroid E03.9 Hypothyroidism E03.9 Allergies No Known Allergies Allergy (Verified 11/12/18 10:24) Home Medications: Ambulatory Orders Medication Instructions Recorded loratadine 10 mg tablet 10 mg PO QDAY 06/26/17 multivitamin capsule 1 cap PO QAM 06/26/17 lisinopril 20 mg tablet 20 mg PO QDAY #90 tab 03/21/18 FreeStyle Anitra 14 Day [place] See Dose Instructions .ROUTE 07/16/18 .MEDSUPPLY #1 ea NS insulin lispro (U-200) 200 unit/mL See Rx Instructions SC QAM #3 ml 07/16/18 (3 mL) subcutaneous pen insulin detemir (U-100) 100 13 unit SC BID #9 ml 07/30/18 unit/mL (3 mL) subcutaneous pen atorvastatin 20 mg tablet 20 mg PO QDAY #90 tab 10/02/18 Surgical History: Surgical History (Last Reviewed 11/14/18 @ 07:04 by Sabino Miguel MD) H/O lumpectomy Z98.890 H/O: Z98.891 History of Z98.891 History of carpal tunnel release Z98.890 History of carpal tunnel release of both wrists Z98.890 History of lumpectomy of right breast Z98.890, Z90.11 Smoking Status: Never smoker Tobacco Use: Non-smoker Review of Systems Constitutional: Denies: Chills, Fever, Weight Change Cardiovascular: Denies: Chest Pain, Chest Pressure, Chest Tightness, Palpitations Respiratory: Denies: Cough, Hemoptysis, Shortness of breath at rest, Shortness of breath upon exertion, Wheezing Gastrointestinal: Denies: Abdominal Pain, Constipation, Diarrhea, Hematemesis, Nausea, Melena, Vomiting Genitourinary: Denies: Dysuria, Frequency, Hematuria, Urgency VTE Information - Inpt Only VTE Present on Admission: No VTE Mechan Device Prophylaxis: None VTE Pharm Prophylaxis ordered?: No Reason prophylaxis not ordered:: Treatment Not Indicated Patient Problems: Active and Suspected Problems (Last Reviewed 10/08/18 @ 13:41 by Sabino Miguel MD) Colon cancer screening (Acute) - Physical Exam General: Alert, Oriented x3 Lungs: Clear to auscultation Cardiovascular: Regular rate, Regular Rhythm, No murmurs Abdomen: Bowel Sounds Present, Soft, Non Tender, Non-Distended Vital Signs Temp Pulse Resp BP Pulse Ox 97.3 F L 72 16 117/59 L 100 11/14/18 06:26 11/14/18 06:26 11/14/18 06:26 11/14/18 06:26 11/14/18 06:26 Oxygen Delivery Method Room Air Weight: 140 lb 10.479 oz Body Mass Index (BMI) 25.7 Assessment/Plan All Active Problems (Last Reviewed 10/08/18 @ 13:41 by Sabino Miguel MD) Colon cancer screening (Acute) Difficulty swallowing solids (Acute) Irregular menstrual bleeding (Acute) Endometrial thickening on ultra sound (Acute) Endometrial polyp (Acute) Plan is to perform a colonoscopy on the patient.
[2018-11-14 07:30] VITALS: BP 100/51; BP 117/59; PULSE 65; RESP 16; TEMP 36.2; O2SAT 98
--- NOTE | 2018-11-14 07:31 | OP.ENDO_ITS ---
11/14/2018 Melyssa Dowd, KAREN [address] [place] [address] Re : Colonoscopy procedure for Aylin Ceballos Dear Ms. Dowd This procedure was performed on Wednesday, November 14, 2018. My impressions and recommendations are as follows: Impressions : - Preparation of the colon was fair. - One 5 mm polyp in the ascending colon, removed with a hot snare. Resected and retrieved. - Diverticulosis in the sigmoid colon. No specimens collected. - The examination was otherwise normal on direct and retroflexion views. Recommendations : - Discharge patient to home. - Resume previous diet. - Continue present medications. - Await pathology results. - Repeat colonoscopy in 3 years for surveillance. - Return to my office in 1 week. My findings are described in the full procedure note, which is enclosed. If I can be of further assistance, please feel free to contact me at Doctor phone number(s): , Fax: [phone], Work: . Sincerely, MD Sabino Christensen MD 11/14/2018 7:30:54 AM This report has been signed electronically.
[2018-11-14 07:35] VITALS: BP 100/59; BP 117/59; PULSE 68; RESP 16; O2SAT 99
[2018-11-14 07:40] VITALS: BP 105/64; BP 117/59; PULSE 68; RESP 16; O2SAT 98
[2018-11-14 07:45] VITALS: BP 105/67; BP 117/59; PULSE 68; RESP 16; TEMP 36.3; O2SAT 99
[2018-11-14 08:01] VITALS: BP 117/59
== END 2018-11-14 08:10 | disposition home or self-care (01) ==
LOC: EN 06:02 → AC 06:02
PROVIDERS: Family Provider Nurse Practitioner; PCP Nurse Practitioner; Referring Provider Nurse Practitioner; Visit Provider Surgery
PROC: 0DJD8ZZ Inspection of Lower Intestinal Tract, Via Natural or Artificial Opening Endoscopic (ICD-10-PCS; CPT 45378; principal; 2018-11-14 06:55)
DX: Z12.11 Encounter for screening for malignant neoplasm of colon (principal); K51.40 Inflammatory polyps of colon without complications; K57.30 Diverticulosis of large intestine without perforation or abscess without bleeding; E10.9 Type 1 diabetes mellitus without complications; E03.9 Hypothyroidism, unspecified; E78.00 Pure hypercholesterolemia, unspecified; Z79.4 Long term (current) use of insulin; Z79.899 Other long term (current) drug therapy
CPT/HCPCS: 45385; 88305; J7120; J1610

== ENCOUNTER → 2019-02-26 | Outpatient (CLI) | payer OTHER, SELFPAY ==
--- NOTE | 2019-02-26 16:29 | BI_ITS ---
MAMMOGRAPHY - BILATERAL SCREENING REASON FOR EXAM: Female, 54 years old. Routine annual screening examination. PERTINENT HISTORY: Non-contributory. TECHNIQUE: Digital bilateral breast alfonzo (3D mammographic acquisition) in the CC and MLO projections. 2-D mediolateral oblique (MLO) and craniocaudad (CC) views of both breasts were obtained. CAD: Full Field Digital Mammography with Computer Added Detection was performed. COMPARISON: No comparison mammograms available at this time. If any prior films become available, an addendum to this report can be generated. FINDINGS: Breast Composition: The breasts are heterogeneously dense, which may obscure small masses. There are no dominant masses or suspicious calcifications. Small benign-appearing left axillary lymph nodes. No other significant abnormalities are identified. BI/SCREEN MAMM (CAD) W/ALFONZO BILAT IMPRESSION: Negative screening mammogram. Yearly followup mammogram recommended. (A) ASSESSMENT CATEGORY: BIRADS Category 2: Benign. A letter regarding these results will be sent to the patient by the facility within 30 days. Approximately 10% of breast cancers are not detected by mammography. A normal mammogram should not delay biopsy of a clinically suspicious abnormality. [id number] Electronically Signed: Jorge Santizo, at 8:49 EDT , Service support ,
== END | disposition home or self-care (01) ==
LOC: OPBI 16:27
PROVIDERS: Family Provider Nurse Practitioner; PCP Nurse Practitioner; Referring Provider Internal Medicine; Visit Provider Internal Medicine
DX: Z12.31 Encounter for screening mammogram for malignant neoplasm of breast (principal)
CPT/HCPCS: 77063; 77067

== ENCOUNTER → 2019-06-25 08:58 | Outpatient (CLI) | payer OTHER, SELFPAY ==
[2019-06-10 11:58] VITALS: BMI 25.7
[2019-06-25 10:33] LABS: Microalbumin,Random Urine 6.3 mg/L (NO RANGE EST.); Microalbumin:Creatinine Ratio 5.8 mg/g CRE (<30 mg/g CRE)
[2019-06-25 10:40] LABS: ALB/GLOB Ratio 1.1 RATIO (0.9-2.4); AST(SGOT) 19 U/L (15-37); Alanine Aminotransfer ALT/SGPT 26 U/L (13-56); Albumin, Serum 3.9 g/dL (3.2-5.0); Alkaline Phosphatase 105 U/L (45-117); Anion Gap 5 (5-15); BUN 15 mg/dL (7-18); BUN/Creat Ratio 18.5 RATIO (10-20); Calcium,Total 9.5 mg/dL (8.5-10.1); Chloride 106 mmol/L (98-107); Cholesterol 142 mg/dL (200); Creatinine, Serum 0.81 mg/dL (0.55-1.02); EST Glomerular Filtration Rate 78 mL/min (>60); Est Glom Filt Rate - Afr Amer 94 mL/min (>60); Globulin 3.5 g/dL (2.2-4.2); Glucose 272 mg/dL (74-106); High Density Lipoprotein 40 mg/dL; Potassium 4.1 mmol/L (3.5-5.1); Protein, Total 7.4 g/dL (6.4-8.2); Sodium Level 138 mmol/L (136-145); T4 Free Direct 1.24 ng/dL (0.76-1.46); Thyroid Stim Hormone (TSH) 0.67 uIU/mL (0.358-3.74); Triglycerides 101 mg/dL; Very Low Density Lipoprotein 20 mg/dL (5-40)
[2019-06-26 09:54] LABS: Thyroid Peroxidase AB 147 IU/mL (0-34)
== END ==
PROVIDERS: Family Provider Nurse Practitioner; PCP Nurse Practitioner; Referring Provider Internal Medicine Endocrinology, Diabetes & Metabolism; Visit Provider Internal Medicine Endocrinology, Diabetes & Metabolism
DX: E04.1 Nontoxic single thyroid nodule (principal); E10.65 Type 1 diabetes mellitus with hyperglycemia; Z79.4 Long term (current) use of insulin; E03.9 Hypothyroidism, unspecified; E78.2 Mixed hyperlipidemia
CPT/HCPCS: 36415; 80053; 80061; 82043; 82570; 84439; 84443; 86376

== ENCOUNTER → 2019-11-28 13:13 | Outpatient (CLI) | payer OTHER, SELFPAY ==
[2019-11-28 13:13] VITALS: BMI 25.7
--- NOTE | 2019-11-28 13:14 | RAD_ITS ---
STUDY: X-RAY - RIGHT KNEE REASON FOR EXAM: Female, 54 years old. Fell two weeks ago, unable to weight bear TECHNIQUE: 4 view(s) of the knee. COMPARISON: None. FINDINGS: Normal visualized distal femur. Normal visualized proximal tibia and fibula. Normal proximal tibiofibular articulation. Normal medial femorotibial compartment. Normal lateral femorotibial compartment. Normal patellofemoral articulation. Small joint effusion. RAD/Knee 4 or More Views IMPRESSION: Small joint effusion. Electronically Signed: Jorge Santizo, at 14:05 EDT , Service support ,
== END ==
PROVIDERS: PCP Internal Medicine; Referring Provider Physician Assistant; Visit Provider Physician Assistant
DX: M25.561 Pain in right knee (principal)
CPT/HCPCS: 73564

== ENCOUNTER → 2019-12-03 16:13 | Outpatient (CLI) | payer OTHER, SELFPAY ==
[2019-11-28 13:30] VITALS: BMI 25.7
--- NOTE | 2019-12-03 16:17 | MRI_ITS ---
STUDY: MRI RIGHT KNEE REASON FOR EXAM: Female, 54 years old. Pain. Injury November 11, 2019 TECHNIQUE: Standardized fat and water weighted pulse sequences were obtained in all 3 orthogonal planes. COMPARISON: None. FINDINGS: There is a bucket handle tear of the medial meniscus, with a displaced meniscal fragment with in the intercondylar notch, series 9 images through . There is diffuse, less than 50% thickness articular cartilage loss of the medial femorotibial compartment. Normal medial femoral condyle and tibial plateau. Normal medial collateral ligamentous complex (MCL). Normal distal semimembranosus, gracilis and semitendinosus tendons. Normal lateral meniscus. Normal hyaline cartilage of the lateral femorotibial compartment. Normal lateral femoral condyle and tibial plateau. Normal proximal tibiofibular articulation. Normal lateral collateral (fibular) ligament. Normal popliteus tendon. Normal biceps femoris tendon. Normal anterior cruciate ligament (ACL). Normal posterior cruciate ligament (PCL). Normal congruent patellofemoral articulation. Normal hyaline cartilage of the patellofemoral compartment. Normal medial and lateral patellar retinaculum. Normal quadriceps tendon. Normal patellar tendon. Normal Hoffa''s fat pad. There is a large volume joint effusion. The soft tissues are unremarkable. The otherwise visualized osseous structures are unremarkable. MRI/Lower Ext Joint Only (Routine) IMPRESSION: Medial meniscus tear with flipped fragment. Large joint effusion. Electronically Signed: Jose L Lawrence MD at 18:22 EDT , Service support ,
== END ==
PROVIDERS: PCP Internal Medicine; Referring Provider Physician Assistant; Visit Provider Physician Assistant
DX: S89.91XA Unspecified injury of right lower leg, initial encounter (principal); M25.561 Pain in right knee; X58.XXXA Exposure to other specified factors, initial encounter; Y93.9 Activity, unspecified; Y92.9 Unspecified place or not applicable; Y99.9 Unspecified external cause status
CPT/HCPCS: 73721

== ENCOUNTER 2019-12-27 05:53 | Day surgery (SDC) | payer OTHER, SELFPAY ==
[2019-12-06 14:04] VITALS: BMI 25.7
[2019-12-16 11:41] VITALS: BMI 25.7
[2019-12-27] VITALS (12 sets, daily range): BP systolic 121–151; BP diastolic 65–89; PULSE 77–98; RESP 14–16; TEMP 36.1–36.9; O2SAT 95–100; BMI 27.2
[2019-12-27 06:16] LABS: Bedside Glucose 116 mg/dL (70-110)
[2019-12-27] MEDS: Lactated Ringers 1,000 ML 100 ML IV ×2 (06:45→10:05)
[2019-12-27] MEDS: Cefazolin 2 GM in 0.9% Normal Saline 100 ML IV (07:26)
--- NOTE | 2019-12-27 07:27 | HP.PCM_ITS ---
History and Physical I have re-examined the patient. There are no clinical changes since date of exam. Intake Vital Signs 12/06/19 BMI 25.7 Intake Visit Reasons: RIGHT KNEE Chief Complaint: right knee Is patient in pain?: Yes Allergies No Known Allergies Allergy (Verified 11/28/19 13:14) [facility] Medical History (Updated 11/27/19 @ 06:52 by Larissa Hartmann) Diabetes type 1, controlled (Acute) Hyperlipidemia (Acute) Hypothyroidism (Acute) Knee pain (Acute) Thyroid nodule (Acute) HTN (hypertension) (Chronic) Social History (Updated 12/06/19 @ 16:22 by KEYON Stephens) Smoking Status: Never smoker second hand exposure: No alcohol intake: current substance use type: does not use HPI RIGHT KNEE: Details: Parts of this documentation were recorded by a scribe, this documentation accurately reflects the service provided and the decisions made by me, KEYON Stephens 12/06/19 1225. CIRILO POZO is a 54 year old F here today for f/u on right knee MRI. Patient presents in a wheelchair today. She complains of medial knee pain, clicking that does not increase pain. She has been nwb with crutches at home and states she has not tried any ambulation with the crutches. Denies numbness, tingling or other associated symptoms. There is very mild swelling today. Ortho Exam Right Knee Skin/Wound: No erythema, No ecchymosis Contralateral Normal: Yes Homans Sign: No Knee ROM: No ROM-Extension -20 to 0, No ROM-Flexion 0-140 Examination: Yes Med jt line tenderness KNEE: No acute abnormalities on inspection today. No erythema, ecchymosis/bruising, warmth, or other skin changes. Patient still has decreased range of motion at this time and continues to have medial joint line tenderness. Assessment & Plan Problems 1. Internal derangement of right knee M23.91 2. Acute medial meniscus tear of right knee, subsequent encounter S83.241D Plan Patient presents to the office to review MRI of the right knee. Images as well as impression were discussed with patient showing evidence of a right medial meniscus bucket-handle tear. This would correspond with her symptoms which include locking/decreased range of motion. At this time we did discuss there is also some arthritis in the medial compartment. With that mechanical symptoms she is having in the tear noted MRI we are going to have to proceed with arthroscopy for medial meniscus repair versus meniscectomy. Risks and benefits of the procedure were discussed with patient and all of her questions were answered to her satisfaction today. Consent was signed in office today. Anyi blakent should continue nonweightbearing using crutches/wheelchair. She continue to ice and take an anti-inflammatory. Patient be contacted by our office regarding surgical days and will be contacted by surgery department for preanesthesia testing and timing of her surgery. Patient was given antimicrobials cleanse to be used the night before and the morning of her procedure. We discussed that fixing meniscus depends really on what we see we get in there. We did discuss that with her arthritis that it is still possible that she will have continued pain to the medial compartment as well as the possibility of increasing her rate for arthritis depending on the amount of meniscus that is unable to be repaired. Patient again understands all these risks and would like to again proceed with surgery. She is to notify our office in the meantime if she has other concerns or complaints or any other problems. This note was generated with [employer] dictation software. It may contain incorrect words, spelling, and punctuation that were not noted in checking the note before signing. Coding Level of Care Code Off vis,est,level 2 Diagnoses Internal derangement of right knee M23.91 Acute medial meniscus tear of right knee, subsequent encounter S83.241D ??Encounter type: subsequent encounter
--- NOTE | 2019-12-27 07:32 | PCM.DC.ORTHO ---
Discharge Diet: No Restrictions - Toe-touch weightbearing operative extremity, brace may be unlocked while seated 0 to 30 degrees, brace locked in extension during ambulation and at night, follow-up on Monday for dressing change and brace adjustment with Lenny Wayt, may get incision wet after that time, call with increased pain numbness tingling or other issues arise Discharge Activity: May Not Drive May shower in (days): 1 Ice area for (Minutes): 20 - Every hour while awake. Weight Bearing Status: Weight bearing as tolerated Keep extremity elevated above heart level: Operative Extremity Call your doctor if your incision/area has: Continuous Slow Oozing, Sudden Increased Bleeding, Increased Pain/ Swelling, Increased Redness, Foul Smelling Discharge Call your doctor if you observe: Fever of 101 or Higher, Coldness, Increased Pain, Numbness or Tingling, Change in Color, Calf discomfort Allergies/Adverse Reactions: Allergies No Known Allergies Allergy (Verified 12/27/19 06:19) Medications to take at Discharge insulin degludec 100 unit/mL (3 mL) subcutaneous pen 22 unit SC DAILY ml 05/24/19 atorvastatin 20 mg tablet 20 mg PO QDAY #90 tab 12/16/19 Acetaminophen [Tylenol Extra Strength] 500 - 1,000 mg PO Q6H PRN PRN 12/20/19 Insulin Lispro [Humalog KwikPen Insulin] 15 unit SUBCUT TID 12/20/19 Levothyroxine Sodium [Synthroid] 75 mcg PO DAILY 12/20/19 Lisinopril 20 mg PO QDAY 12/20/19 Loratadine [Claritin] 10 mg PO DAILY 12/20/19 Hydrocodone Bitart/Apap 5-325 [[place] 5MG-325MG] 1 - 2 tab PO Q6H PRN PRN 5 Days #25 tab 12/27/19 The following prescriptions were given: Hydrocodone Bitart/Apap 5-325 [[place] 5MG-325MG] 1 - 2 tab PO Q6H PRN PRN 5 Days #25 tab PRN Reason: Pain Transmission Status: Received by [facility] Primary Care Physician: Cecy Vieyra DO [Primary Care Provider] - Test Results: Test results from this visit will be discussed in further detail at your follow-up appointment, if applicable. Please Follow Up With: Romi Hamm DO - [phone]
--- NOTE | 2019-12-27 07:32 | PCM.OPRPT ---
Report of Operation Date of Procedure: 12/27/19 Pre-Operative Diagnosis: Right knee medial meniscus bucket-handle tear, synovitis Post-Operative Diagnosis: Same Surgery/Procedure Performed:: Right knee arthroscopy, extensive synovectomy, bucket-handle medial meniscus repair, microfracture notch machine grinder: Eduar Ling Type of Anesthesia:: General Anesthesiologist: Cristofer Nobles Replaced: 800cc lr Description of Procedure: Preoperative note Patient is a 54-year-old female injured her right knee. Had locking of the right knee MRI confirms bucket-handle medial meniscus tear she was seen by my physician's activities assistant. At that time decision was made to take her to the operating room for operative fixation. We did discuss however due to her age that if we did repair it she has a less likelihood of it being able to take so to speak due to her age however doing a subtotal meniscectomy at this stage would further any arthritis and necessitate a total knee arthroplasty in the future. Patient and are aware would like to see if the meniscus can be repaired but are aware of the risk associated with this as well. Risk benefits and alternatives were discussed with patient. Risk including but not limited to blood loss, blood clot, infection, neurovascular, failure procedure, loss of life and loss of limb. Patient is aware like proceed with right knee arthroscopy repair as indicated. We discussed the current risk associated COVID-19. While it is understood that there is a community spread of COVID 19 the risk of mary COVID-19 while at [facility] is very low, however, the risk cannot be completely mitigated because of the community spread of the disease. We discussed in detail the risk of exposure to and or potential harm posed by the COVID-19 virus with having a surgery/procedure at this time versus the risk of delaying the surgery/procedure. Is not possible to know either the risk of delaying the surgery procedure or chance of getting an infection with perfect accuracy, but a joint decision was made to proceed at this time with a schedule surgery/procedure as indicated on the consent form. Patient was notified that we will need to comply with any screening or testing [facility] wishes to perform or that surgery may be delayed for any positive results. Operative note Patient seen and examined preoperative holding area. Right knee was marked. Patient brought to the operating room placed supine on the operating table. Signed, anesthesia, antibiotics were administered. Right leg was prepped and draped in usual sterile fashion with tourniquet around her upper thigh. All bony prominences well-padded SCDs placed on her contralateral limb. The right knee was prepped and draped usual technique. We marked out our incisions for bony landmarks for our portal placement anterior lateral and anterior medial portal placements. The right leg was then elevated exsanguinated and tourniquet was raised her pressure of 250 torr. Timeout was performed. We then created an anterior lateral portal under direct visualization. Began our diagnostic arthroscopy. Patellofemoral joint was unremarkable and a difficult time getting to the anteromedial aspect due to the fact that the bucket-handle medial meniscus tear actually was locked anteriorly and there was resultant synovitis to the anterior medial and anterior lateral joint recess joint. We created an anteromedial portal. Resected back the thickened synovium both anterior medial and anterior lateral with a shaver. We were we then used a shaver to abrade debride back the site for the meniscus repair we noted that it was more capsular tear off of the anterior mid body then going posterior there was some aspect of the the red-white barrier were had torn off more posterior close to the posterior horn. Posterior horn was still intact however the decision was made after we were able to reduce after we did shave both the meniscal's side as well as the capsular side as well as punctate punctuating with 18-gauge spinal needle to instill blood flow that we able to reduce the meniscus and her best shot of decreasing arthritis and longevity to the to the medial compartment would be to remove attempt a repair which we did. We placed proximally 10 reverse curved FasT-Fix devices into the medial meniscus and bearing switching her portals to get the more mid body tear. We then inserted the probe and to probe the repair and we had good repair at that point. The ACL and PCL were present within the notch. The lateral meniscus was intact and stable probing. The lateral femoral condyle lateral tibial plateau were intact and stable probing as well. We then performed a microfracture of the notched to further blood in the need to help heal the medial meniscus repair. Tourniquet was deflated. Portals were closed with interrupted 4-0 nylon stitches. Sterile dressings were applied. Patient tolerated blade tolerated procedure well no complications transferred recovery room in stable condition. Postoperative note Toe-touch weightbearing right leg Brace locked in extension during ambulation and at night Patient will be given to family in 2 weeks Hospital pharmacy has pain prescription Call with increased pain numbness tingling further issues arise Brace may be unlocked 0-30 Dragon disclaimer This note was generated with [employer] dictation software. It may contain incorrect words, spelling, and punctuation that were not noted in checking the note before signing.
[2019-12-27] MEDS: Epinephrine (1 mg/ml) 1 MG/ML VIAL (08:30)
[2019-12-27] MEDS: Bupiv/Epi 0.25% 30 ML Vial (08:46)
[2019-12-27] MEDS: Mupirocin Ointment 22gm Tube 1 APPLIC (08:52)
[2019-12-27 10:01] LABS: Bedside Glucose 188 mg/dL (70-110)
== END 2019-12-27 12:39 | disposition home or self-care (01) ==
LOC: SDC 05:53 → AC 05:54
PROVIDERS: Anesthesiology; PCP Internal Medicine; Referring Provider Orthopaedic Surgery; Visit Provider Orthopaedic Surgery
PROC: (CPT 29882; principal; 2019-12-27 07:10)
DX: S83.211A Bucket-handle tear of medial meniscus, current injury, right knee, initial encounter (principal); M65.88 Other synovitis and tenosynovitis, other site; Z11.59 Encounter for screening for other viral diseases; E10.9 Type 1 diabetes mellitus without complications; I10 Essential (primary) hypertension; E78.5 Hyperlipidemia, unspecified; E03.9 Hypothyroidism, unspecified; Z78.0 Asymptomatic menopausal state; Z79.4 Long term (current) use of insulin; Z79.899 Other long term (current) drug therapy; M65.861 Other synovitis and tenosynovitis, right lower leg
CPT/HCPCS: 01400; 29882; 82962; 87635; G2023; J7120; A4216; J2405; U0003

== ENCOUNTER 2020-03-18 11:30 | Outpatient (RCR) | payer OTHER, SELFPAY ==
[2019-09-09 10:00] VITALS: BMI 25.7
[2020-01-09 14:41] VITALS: BMI 27.2
--- NOTE | 2020-01-16 14:13 | HP.PTEVAL ---
Patient's Visit Information CIRILO POZO is a 54 year old F referred to Physical Therapy by Dr. Romi Hamm DO with a diagnosis of MENISCUS REPAIR RIGHT KNEE. Date of Evaluation: 01/16/20 Physical Therapist: Raji Rubin PT, Cert MDT, OCS - Visit Plan Frequency: 2x /Week Duration: 2 Months Plan: SEE PRACTICE CLINICAL GUIDELINES MENISCAL REPAIR. PATIENT UNDERWENT S/P MENISCUS REPAIR 12/27/19. INTIALLY NWB WITH IROM BRACE LOCKED IN EXTENSION WITH CRUTCHES ,CURRENTLY TDWB WITH KNEE BRACE LOCKED IN EXTENSION WITH GAIT OKAY TO UNLOCK TO 40 DEGREES AT REST,RTD 7.23. PT INTERVENTIONS ROM TO 40 DEGREES ,CP STRENGTHENING SEE ARIEL WITH PRGRESSION - Subjective This 54 y/o female presents to physical therapy with meniscus repair right knee. Patient developed some mild discomfort November 10 getting bed of truck next day pain with limp then had injection helped on Mat 7 . Following Monday standing in yard severe pain fell to ground. Then [facility] did MRI showed bucket handle meniscus tear. Then underwent s/p arthroscopic extensive synovectomy and repair of meniscus on 12/27/19. Patient intially NWB with crutches for 2weeks locked in Extension ,see 02/10/20 okay TDWB -30% with crutches with knee brace locked in extension okay to unlock 40 degrees for ADL's .Patient has min pain. Patient does steps one step at time.Pateint has min edema. Patient has limitations with ADL'S,housework tasks and RTW with gait. Patient surgery affects gait and QOL.RTW 02/05/17 - Pain Right Knee Pain Intensity (Out of 10): 3 Pain Intensity Range: 10 - Objective POSTURE: mild foward posture,knee brace inatct. GAIT: ambulates knee brace locked antalgic gait TDWB RLE. EDEMA: 35.5 cm joint line. AROM: 2-40 degrees supine knee flexion. MMT: HIP 3+/5 ,KNEE NT. BALANCE: good - with crutches. STAIRS: one step at a time with crutches with TDWB RLE - Goals Goal 1:: Independant with HEP Goal Time Frame: 8-12 Weeks Goal 2:: Normalize gait pattern with WBAT NO DEVICE Goal Time Frame: 8-12 Weeks Goal 3:: Increase AROM supine knee flexion 0-125 degrees or > to improve gait and stairs. Goal Time Frame: 8-12 Weeks Goal 4:: Patient to increase strength quads/hams/hip 4/5 to improve function Goal Time Frame: 8-12 Weeks Goal 5:: Patient to improve LFES SCAORE by 10 points or > to improve QOL. Goal Time Frame: 8-12 Weeks Goal 6:: Balance to normal Goal Time Frame: 8-12 Weeks - Rehabilitation Potential Physical Therapy Diagnosis: This 54 y/o female presents to physical therapy with meniscus repair with TDWB RLE,impairments with gait ROM,strength,thUS benifit from skilled PT Rehabilitation Potential: Good - Anticipated Interventions Patient/Client Instruction: Educate patient on: Condition, Plan of Care For the Purpose of:: To decrease swelling/inflammation, To increase ROM, To improve muscle performance and motor function, To improve ability to perform ADL's, To increase tolerance to activity/condition/position, To improve performance and independence with ADL's, To improve ability of physical actions for home/community/work/leisure, To improve gait and locomotor functions, To improve health of tissue, To decrease soft tissue restriction, To increase flexibility/ROM, To assume or resume ADL's, To improve ability to perform tasks related to life management Therapeutic Exercise to Include: Strength training, Flexibilty training, Gait and locomotor training, Passive ROM, Active ROM Comment: KNEE/HIP. SEE CLINICAL GUIDELINES WITH PROGRESSION For the Purpose of:: To decrease pain, To increase ROM, To improve muscle performance and motor function, To improve ability to perform ADL's, To increase tolerance to activity/condition/position, To improve ability of physical actions for home/community/work/leisure, To improve gait and locomotor functions, To improve health of tissue, To decrease soft tissue restriction, To increase flexibility/ROM, To improve safety with gait, To improve ability to perform tasks related to life management, To improve tolerance to ADL's TENS: Yes IF ES: Yes Cryotherapy (ice pack, ice massage): Yes Thermo therapy (hot pack): Yes For the Purpose of:: To decrease pain, To decrease swelling/inflammation Thank you for the opportunity to evaluate your patient. For Medicare and Medicare HMO plans, please review the plan of care and approve it. It will need to be FAXED BACK to us at [phone] for Medicare purposes. For Medicare only, by signing this I certify the plan of care. Please let me know if there are questions or concerns regarding this plan of care. Physician Signature: Date:
--- NOTE | 2020-07-15 13:13 | HP.PT.NRP ---
CIRILO POZO was seen in my office for initial evaluation on 01/16/20. The following Plan of Care was established for this patient: Initial Frequency: 2x /Week Initial Duration: 2 Months Patient/Client Instruction: Educate patient on: Condition, Plan of Care For the Purpose of:: To decrease swelling/inflammation, To increase ROM, To improve muscle performance and motor function, To improve ability to perform ADL's, To increase tolerance to activity/condition/position, To improve performance and independence with ADL's, To improve ability of physical actions for home/community/work/leisure, To improve gait and locomotor functions, To improve health of tissue, To decrease soft tissue restriction, To increase flexibility/ROM, To assume or resume ADL's, To improve ability to perform tasks related to life management Therapeutic Exercise to Include: Strength training, Flexibilty training, Gait and locomotor training, Passive ROM, Active ROM For the Purpose of:: To decrease pain, To increase ROM, To improve muscle performance and motor function, To improve ability to perform ADL's, To increase tolerance to activity/condition/position, To improve ability of physical actions for home/community/work/leisure, To improve gait and locomotor functions, To improve health of tissue, To decrease soft tissue restriction, To increase flexibility/ROM, To improve safety with gait, To improve ability to perform tasks related to life management, To improve tolerance to ADL's TENS: Yes IF ES: Yes Cryotherapy (ice pack, ice massage): Yes Thermo therapy (hot pack): Yes For the Purpose of:: To decrease pain, To decrease swelling/inflammation This patient was last seen in our office . Pertinent comments regarding their Physical therapy will appear below: Patient seen for PT for right knee meniscus repair following protocal ,Doing well d/c At this point I will be discontinuing this patient from physical therapy. I would be happy to see this patient again in the future if found appropriate by the physician. Thank you! Raji Rubin, PT, Cert MDT, OCS
== END 2020-03-18 19:00 | disposition home or self-care (01) ==
LOC: PT 11:30
PROVIDERS: PCP Internal Medicine; Referring Provider Orthopaedic Surgery; Visit Provider Orthopaedic Surgery
DX: M25.561 Pain in right knee (principal); Z98.890 Other specified postprocedural states
CPT/HCPCS: 97110; 97162

== ENCOUNTER → 2020-04-28 15:42 | Outpatient (CLI) | payer OTHER, SELFPAY ==
[2020-04-23 08:29] VITALS: BMI 27.2
[2020-04-28 15:43] LABS: Pathologist Comment May follow
[2020-04-28 19:15] LABS: AUTO B FLUID DILUENT BKGD CT WBC <0.1 RBC <0.01 (W<.1,R<.01); Appearance /Synovial Fluid Hazy (CLEAR); CRYSTALS, BODY FLUID See PATH REV; Color / Synovial Fluid Yellow (Pale Yellow); Source / Synovial Fluid NG; Source- Body Fluid SYNOVIAL
[2020-04-28 19:16] LABS: RBC /Synovial Fluid 55 /mm3 (0)
[2020-04-28 19:19] LABS: Synovial Fld Mononuclear WBC % 63.5 %; Synovial Fld Polynuclear WBC # 0.184 10^3/uL; Synovial Fld Polynuclear WBC % 36.5 %
[2020-04-28 19:20] LABS: Synovial Fld Mononuclear WBC # 0.321 10^3/ul
[2020-04-28 19:47] LABS: Body Fluid QC Type(s) BF3Q,BF4Q; Lymph 4 %; Monocyte /Synovial Fluid 54 %; Neutrophil 42 % (0-25)
[2020-04-29 14:49] LABS: Pathologist Review Reviewed
[2020-04-30 10:37] LABS: GLUCOSE, SYNOVIAL FLUID 193 mg/dL (.)
== END ==
PROVIDERS: PCP Internal Medicine; Visit Provider Orthopaedic Surgery
DX: M25.561 Pain in right knee (principal)
CPT/HCPCS: 82945; 84157; 87070; 87075; 87205; 89050; 89051; 89060

== ENCOUNTER → 2020-05-12 07:01 | Outpatient (CLI) | payer OTHER, SELFPAY ==
[2020-03-19 13:27] VITALS: BMI 27.2
[2020-04-23 08:29] VITALS: BMI 27.2
--- NOTE | 2020-05-12 07:07 | BI_ITS ---
MAMMOGRAPHY - BILATERAL SCREENING REASON FOR EXAM: Female, 55 years old. Routine annual screening examination. PERTINENT HISTORY: Non-contributory. TECHNIQUE: Digital bilateral breast alfonzo (3D mammographic acquisition) in the CC and MLO projections. 2-D mediolateral oblique (MLO) and craniocaudad (CC) views of both breasts were obtained. CAD: Full Field Digital Mammography with Computer Added Detection was performed. COMPARISON: Comparison is made with prior examination 02/26/2019. FINDINGS: Breast Composition: The breasts are heterogeneously dense, which may obscure small masses. There are no dominant masses or suspicious calcifications. Stable small benign-appearing bilateral axillary lymph nodes. No other significant abnormalities are identified. There has been no significant change since the prior study. BI/SCREEN MAMM (CAD) W/ALFONZO BILAT IMPRESSION: Stable bilateral screening mammogram. Yearly follow-up mammogram recommended. (A) ASSESSMENT CATEGORY: BIRADS Category 2: Benign. A letter regarding these results will be sent to the patient by the facility within 30 days. Approximately 10% of breast cancers are not detected by mammography. A normal mammogram should not delay biopsy of a clinically suspicious abnormality. [id number] Electronically Signed: Jorge Santizo, at 8:45 EDT , Service support ,
== END ==
PROVIDERS: PCP Internal Medicine; Referring Provider Internal Medicine; Visit Provider Internal Medicine
DX: Z12.31 Encounter for screening mammogram for malignant neoplasm of breast (principal)
CPT/HCPCS: 77063; 77067

== ENCOUNTER → 2020-08-17 12:00 | Outpatient (CLI) | payer OTHER, SELFPAY ==
[2020-08-17 11:16] VITALS: BMI 29.0
[2020-08-17 15:45] LABS: Microalbumin,Random Urine 7.9 mg/L (NO RANGE EST.); Microalbumin:Creatinine Ratio 11.5 mg/g CRE (<30 mg/g CRE)
[2020-08-17 16:01] LABS: AST(SGOT) 20 U/L (15-37); Alanine Aminotransfer ALT/SGPT 31 U/L (13-56); Albumin, Serum 3.9 g/dL (3.2-5.0); Alkaline Phosphatase 129 U/L (45-117); Anion Gap 6 (5-15); BUN 16 mg/dL (7-18); BUN/Creat Ratio 20.1 RATIO (10-20); Calcium,Total 10.5 mg/dL (8.5-10.1); Chloride 103 mmol/L (98-107); Cholesterol 165 mg/dL (200); EST Glomerular Filtration Rate 79 mL/min (>60); Est Glom Filt Rate - Afr Amer 96 mL/min (>60); Glucose 136 mg/dL (74-106); High Density Lipoprotein 41 mg/dL; Potassium 4.3 mmol/L (3.5-5.1); Protein, Total 7.9 g/dL (6.4-8.2); Sodium Level 137 mmol/L (136-145); T4 Free Direct 1.36 ng/dL (0.76-1.46); Thyroid Stim Hormone (TSH) 1.05 uIU/mL (0.358-3.74); Triglycerides 118 mg/dL; Very Low Density Lipoprotein 24 mg/dL (5-40)
== END ==
PROVIDERS: PCP Internal Medicine; Visit Provider Internal Medicine Endocrinology, Diabetes & Metabolism
DX: E11.9 Type 2 diabetes mellitus without complications (principal); E03.9 Hypothyroidism, unspecified; E78.2 Mixed hyperlipidemia
CPT/HCPCS: 36415; 80053; 80061; 82043; 82570; 84439; 84443

== ENCOUNTER → 2020-10-16 06:26 | Outpatient (CLI) | payer OTHER, SELFPAY ==
[2020-08-17 11:16] VITALS: BMI 29.0
--- NOTE | 2020-10-16 06:28 | MRI_ITS ---
STUDY: MRI RIGHT KNEE REASON FOR EXAM: Lateral knee pain since last November, right knee surgery in December. TECHNIQUE: Standardized fat and water weighted pulse sequences were obtained in all 3 orthogonal planes. COMPARISON: MRI images 12/03/2019. FINDINGS: There are postoperative changes of the medial meniscus. There is a recurrent medial meniscal tear with a displaced flap superior to the root of the posterior horn of the medial meniscus (proton-density sagittal images 24, 25; T2 coronal images 11, 12). There is mild arthrosis of the medial femorotibial compartment with mild partial-thickness chondral loss of the medial femoral condyle (T2 sagittal image 17). Normal medial femoral condyle and tibial plateau. Normal medial collateral ligamentous complex (MCL). Normal distal semimembranosus, gracilis and semitendinosus tendons. Normal lateral meniscus. Normal hyaline cartilage of the lateral femorotibial compartment. Normal lateral femoral condyle and tibial plateau. Normal proximal tibiofibular articulation. Normal lateral collateral (fibular) ligament. Normal popliteus tendon. Normal biceps femoris tendon. Normal anterior cruciate ligament (ACL). Normal posterior cruciate ligament (PCL). Normal congruent patellofemoral articulation. Normal hyaline cartilage of the patellofemoral compartment. Normal medial and lateral patellar retinaculum. Normal quadriceps tendon. Normal patellar tendon. There is postoperative scarring in Hoffa''s fat pad. There is a lpwvs-pm-qeszdeyo sized joint effusion. The soft tissues are unremarkable. The otherwise visualized osseous structures are unremarkable. MRI/Lower Ext Joint Only (Routine) IMPRESSION: Recurrent medial meniscal tear. Mild arthrosis of the medial femorotibial compartment. Joint effusion. Electronically Signed: Enrico Mar MD at 8:41 EDT Tel , Service support ,
== END ==
PROVIDERS: PCP Internal Medicine; Referring Provider Orthopaedic Surgery; Visit Provider Orthopaedic Surgery
DX: M25.561 Pain in right knee (principal)
CPT/HCPCS: 73721

== ENCOUNTER 2020-11-04 05:57 | Day surgery (SDC) | payer OTHER, SELFPAY ==
[2020-08-17 11:16] VITALS: BMI 29.0
[2020-11-04 06:26] VITALS: BP 116/58; PULSE 77; RESP 16; TEMP 36.7; O2SAT 99; BMI 29.0
[2020-11-04 06:55] LABS: Bedside Glucose 213 mg/dL (70-110)
--- NOTE | 2020-11-04 07:00 | HP_ITS ---
I have re-examined the patient. There are no clinical changes since date of exam. Intake Intake Visit Reasons: RIGHT KNEE Chief Complaint: Diabetes Allergies No Known Allergies Allergy (Verified 09/04/20 10:48) [facility] Medical History (Updated 08/17/20 @ 18:[address] Remberto Lubin MD) Diabetes type 1, controlled (Acute) Hyperlipidemia (Acute) Hypothyroidism (Acute) Knee pain (Acute) Thyroid nodule (Acute) HTN (hypertension) (Chronic) Surgical History H/O colonoscopy (Acute) H/O lumpectomy (Acute) H/O: (Acute) History of (Acute) History of carpal tunnel release (Acute) History of carpal tunnel release of both wrists (Acute) History of lumpectomy of right breast (Acute) Family History Mother Diabetes Bleeding disorder High cholesterol Cancer Heart disease Hypertension Melanoma Father Alcoholism Sister Colon cancer Diabetes Brother Diabetes Social History (Updated 10/27/20 @ 16:[address] Romi Hamm DO) Smoking Status: Never smoker second hand exposure: No alcohol intake: current substance use type: does not use HPI RIGHT KNEE: Surgical H&P: Yes Details: Parts of this documentation were recorded by a scribe, this documentation accurately reflects the service provided and the decisions made by me, Dr. Romi Hamm DO 10/20/20 [id number]. CIRILO POZO is a 55 year old F here today for F/U on right knee after having MRI completed. SHe is here to review the MRI today. Continues to have right anterior lateral knee pain and pain just below the patella. Does have painful mechanical knee pain. Does feel like her knee is unstable at times. She had a right knee aspiration in 08/2020. ROS Musc Reports system reviewed and no additional complaints, except as docu Skin/Breast Reports system reviewed and no additional complaints, except as docu, Denies dry skin, Denies redness, Denies lesions, Denies new lesions, Denies non-healing lesions, Denies itching, Denies rash, Denies skin ulcer, Denies sores, Denies wounds Ortho Exam General General: Yes no acute distress Neurologic: Yes alert, Yes oriented x3 Psychologic: Yes reasonable and appropriate Right Knee Skin/Wound: No erythema, No ecchymosis, Yes swelling Homans Sign: No Knee ROM: Yes ROM-Extension -20 to 0, Yes ROM-Flexion 0-140 Examination: No Med jt line tenderness, Yes Lat jt line tenderness, Yes Kely's Test, No TTP Pes Anserine Stability: NML: Anterior Drawer, NML: Posterior Drawer, NML: Valgus 30, NML: Varus 30 Patella Grind: No Assessment & Plan Problems 1. Pain in lateral portion of right knee M25.561 2. Tear of medial meniscus of right knee, unspecified tear type, unspecified whether old or current tear, subsequent encounter S83.241D Plan Personally reviewed patients MRI of the right knee. Patient educated that she may have a small meniscus tear which was not show on MRI and she has a recurrent medial meniscus tear. Treatment options are bracing or steroid injection or right knee scope for meniscectomy. Reviewed the pre-operative plans with the patient. Risks and benefits of the procedure were fully explained, including but not limited to infection, neurovascular injury, continued pain, arthritis, stiffness, need for further surgery, re-injury, DVT, PE, general risks of anesthesia, and loss of limb or life. The patient understands all the risks and does wish to proceed with written consent for right knee arthroscopy lateral and medial meniscectomy, surgery as indicated. Follow up 2 weeks post op or sooner if pain, swelling, numbness or associated symptoms, or concerns develop. All questions answered. Patient in agreement of plan. Coding Level of Care Code Off vis,est,level 4 Diagnoses Pain in lateral portion of right knee M25.561 Tear of medial meniscus of right knee, unspecified tear type, unspecified whether old or current tear, subsequent encounter S83.244D ??Encounter type: subsequent encounter ??Meniscus tear of knee type: unspecified type ??Tear current or old: unspecified COVID (Procedure Consent) Procedure Criteria Procedure Criteria: Yes Elective The surgeon/proceduralist and patient have discussed in detail the risk of exposure to and/or potential harm posed by the COVID-19 virus with having a surgery/procedure at this time versus the risk of? delaying the surgery/procedure. It is not possible to know either the risk of delaying the surgery or procedure or chance of getting an infection with perfect accuracy, but a joint decision was made between the patient and the surgeon/proceduralist ?to proceed at this time with the scheduled surgery/procedure as indicated on the consent form.
[2020-11-04] MEDS: Lactated Ringers 1,000 ML 100 ML IV (07:03)
[2020-11-04] MEDS: Cefazolin 2 GM in 0.9% Normal Saline 100 ML IV (07:26)
[2020-11-04] MEDS: Epinephrine (1 mg/ml) 1 MG/ML VIAL (08:35)
--- NOTE | 2020-11-04 08:35 | PCM.DC.ORTHO ---
Discharge Diet: No Restrictions - wbat operative limb, remove dressing in 4 days and apply bandaids to incision sites, orquidea stockings for one week, follow up in 2 weeks with florencio rashadt or sooner if issues arise, call with concerns; elevate/ice/ankle pumps Discharge Activity: May Not Drive May shower in (days): 1 Ice area for (Minutes): 20 - Every hour while awake. Weight Bearing Status: Weight bearing as tolerated Keep extremity elevated above heart level: Operative Extremity Call your doctor if your incision/area has: Continuous Slow Oozing, Sudden Increased Bleeding, Increased Pain/ Swelling, Increased Redness, Foul Smelling Discharge Call your doctor if you observe: Fever of 101 or Higher, Coldness, Increased Pain, Numbness or Tingling, Change in Color, Calf discomfort Allergies/Adverse Reactions: Allergies No Known Allergies Allergy (Verified 10/28/20 10:19) Medications to take at Discharge atorvastatin 20 mg tablet 20 mg PO QDAY #90 tab 12/16/19 Loratadine [Claritin] 10 mg PO DAILY 12/20/19 insulin lispro 200 unit/mL (3 mL) subcutaneous pen 15 unit SUBCUT TID #9 ml 01/21/20 insulin degludec 100 unit/mL (3 mL) subcutaneous pen 26 unit SC DAILY ml 03/17/20 lisinopril 20 mg tablet 20 mg PO QDAY #90 tab 03/17/20 levothyroxine 75 mcg tablet 75 mcg PO DAILY #90 tab 06/29/20 cholecalciferol (vitamin D3) 25 mcg (1,000 unit) capsule 25 mcg PO DAILY 09/04/20 Hydrocodone Bitart/Apap 5-325 [Hills 5MG-325MG] 1 - 2 tablet PO Q6H PRN PRN 5 Days #40 tab 11/04/20 Ondansetron [Zofran] 8 mg PO Q8H PRN PRN #20 tab 11/04/20 The following prescriptions were given: Hydrocodone Bitart/Apap 5-325 [Hills 5MG-325MG] 1 - 2 tablet PO Q6H PRN PRN 5 Days #40 tab PRN Reason: Pain Transmission Status: Sent to [facility] Ondansetron [Zofran] 8 mg PO Q8H PRN PRN #20 tab PRN Reason: Nausea Transmission Status: Sent to [facility] Primary Care Physician: Cecy Vieyra DO [Primary Care Provider] - Test Results: Test results from this visit will be discussed in further detail at your follow-up appointment, if applicable. Please Follow Up With: Romi Hamm DO - [phone]
[2020-11-04] MEDS: Mupirocin Ointment 22gm Tube 1 APPLIC (08:36)
--- NOTE | 2020-11-04 08:36 | PCM.OPRPT ---
Report of Operation Date of Procedure: 11/04/20 Pre-Operative Diagnosis: right knee recurrent medial meniscus tear, pain/synovitis Post-Operative Diagnosis: same Surgery/Procedure Performed:: sark, pmm, synovectomy linux systems analyst: Eduar Ling Type of Anesthesia:: General Anesthesiologist: Cristofer Nobles Estimated Blood Loss (mL): min Fluids Replaced: 450 cc Description of Procedure: Preop note Patient 55-year-old female with continued right knee after right knee medial meniscus repair. Risk-benefit patient failed consider treatment MRI confirms that she had a previous meniscus repair looks like partially repaired partial part of it is a radial tear on the more mid body. Patient is also having pain laterally as appears to be from swelling. Risk benefits alternatives surgery discussed with patient. Risk include but not limited to blood loss, blood clot, infection, neurovascular, failure procedure, loss of life and loss of limb. Patient is aware would like proceed with right knee arthroscopy repair as indicated Covid we discussed the current risk associated COVID-19. While it is understood that there is a community spread of COVID 19 the risk of mary COVID-19 while at [facility] is very low, however, the risk cannot be completely mitigated because of the community spread of the disease. We discussed in detail the risk of exposure to and or potential harm posed by the COVID-19 virus with having a surgery/procedure at this time versus the risk of delaying the surgery/procedure. Is not possible to know either the risk of delaying the surgery procedure or chance of getting an infection with perfect accuracy, but a joint decision was made to proceed at this time with a schedule surgery/procedure as indicated on the consent form. Patient was notified that we will need to comply with any screening or testing [facility] wishes to perform or that surgery may be delayed for any positive results. Operative note Patient seen and examined preoperative area. Right knee was marked. Patient brought to the operating room placed supine on the operating table. Signed, anesthesia, antibiotics were administered. The right leg was prepped and draped usual sterile technique with a tourniquet around upper thigh. All bony promises well-padded SCD placed on her contralateral limb. We marked out our incision from her previous meniscectomy meniscectomy. Timeout was performed then right leg was then elevated exsanguinated tourniquet is raised for pressure of 250 torr. Use 11 blade to create her anterior lateral portal began a diagnostic arthroscopy. Patellofemoral joint was unremarkable moved to the medial joint line created anterior medial portal and direct visualization. There was extensive scarring fibrosis in the anteromedial anterior lateral recesses. We then resected this with, with a shaver. We then were able to visualize medial meniscus tear. The posterior horn medial meniscus had maintained from the repair but there is a new radial flap tear on the more mid body him this was removed and shaved and delineated with a combination of a shaver and a basket to a stable transition. We then reinserted probe and we did have a stable meniscus remaining. She had grade 3 eburnated changes across her entire tibial plateau and she has grade 2 fibrillated changes in the medial femoral condyle and the medial aspect and and is a little bit extending about a 1 x 2 cm but cartilage was intact. ACL PCL were present within the notch. The lateral meniscus was intact and stable probing as well. She did have a slightly different variant where she had them the posterior horn of the lateral masses actually came and inserted actually right next to the ACL but on the tibial side. This might allow for a low bit more movement of the lateral meniscus however her lateral femoral condyle lateral tibial plateau were all intact and stable probing and there were no tears or instability of the meniscus. We again performed extensive synovectomy as she has more of a stenotic synovitis in the anterior lateral aspect as well. There are no loose bodies in the anterior medial anterior lateral recesses. We then irrigated the knee with copious muscle sterile saline. Portals were closed with interrupted 4-0 nylon stitches. Injected 8 cc bupivacaine 2 cc Kenalog through the cannula. Sterile dressings were applied. It was deflated. Patient taught procedure well no complication transfer recovery room in stable condition Postoperative note Weight-bear as tolerated Call increased with increased pain Follow-up in 2 weeks Ice elevate ankle pumps YULISSA stockings This was all discussed with Poal disclaimer
[2020-11-04] MEDS: Triamcinolone Acetonide 40 MG/ML Vial (08:37)
[2020-11-04] MEDS: Bupivacaine 0.25% 30 ML Vial (08:37)
[2020-11-04 08:54] VITALS: BP 115/79; BP 116/58; PULSE 78; RESP 16; TEMP 36.1; O2SAT 100
[2020-11-04 09:00] VITALS: BP 116/58; BP 124/77; PULSE 79; RESP 16; O2SAT 98
[2020-11-04 09:15] VITALS: BP 116/58; BP 134/69; PULSE 76; RESP 16; O2SAT 99
[2020-11-04 09:30] VITALS: BP 116/58; BP 134/71; PULSE 82; RESP 16; TEMP 36.2; O2SAT 98
[2020-11-04 10:35] VITALS: BP 116/58; BP 149/84; PULSE 84; RESP 16; TEMP 36.4; O2SAT 94
== END 2020-11-04 10:52 | disposition home or self-care (01) ==
LOC: SDC 05:58 → AC 05:58
PROVIDERS: PCP Internal Medicine; Referring Provider Orthopaedic Surgery; Visit Provider Orthopaedic Surgery
PROC: (CPT 29882; principal; 2020-11-04 07:10)
DX: S83.241A Other tear of medial meniscus, current injury, right knee, initial encounter (principal); M65.861 Other synovitis and tenosynovitis, right lower leg; X58.XXXA Exposure to other specified factors, initial encounter; Y93.9 Activity, unspecified; Y92.9 Unspecified place or not applicable; Y99.9 Unspecified external cause status; Z20.822 Contact with and (suspected) exposure to COVID-19; E10.9 Type 1 diabetes mellitus without complications; I10 Essential (primary) hypertension; E78.5 Hyperlipidemia, unspecified; E03.9 Hypothyroidism, unspecified; Z79.4 Long term (current) use of insulin; Z79.890 Hormone replacement therapy; Z79.899 Other long term (current) drug therapy; Z78.0 Asymptomatic menopausal state
CPT/HCPCS: 01400; 29881; 82962; 87426; C9803; J7120; J2405

== ENCOUNTER → 2021-02-15 14:17 | Outpatient (CLI) | payer OTHER, SELFPAY ==
[2021-02-08 14:46] VITALS: BMI 29.0
--- NOTE | 2021-02-15 14:18 | US_ITS ---
HISTORY: HYPOTHYROIDISM EXAMINATION: US Thyroid (eg thyroid, parathyroid, parotid) TECHNIQUE: Abbott scale and color doppler imaging was performed of the thyroid gland. COMPARISON: None FINDINGS: RIGHT THYROID LOBE: 4.5 x 1.7 x 1.3 cm. Heterogenous echotexture with normal vascularity. Nodules: No thyroid nodules are present. LEFT THYROID LOBE: 4.5 x 1.4 x 1.1 cm. Heterogenous echotexture with normal vascularity. Nodules: No thyroid nodules are present. ISTHMUS: 4 mm. Nodules: No thyroid nodules are present. US/Thyroid IMPRESSION: Negative thyroid ultrasound examination. ACR TI-RADS recommendations ([employer] Royce Radiol 2017): Based on composition, echogenicity, shape, margin, and echogenic foci. TR5 (=7 points) - Highly suspicious FNA if = 1cm, follow up if 0.5-0.9 cm every year for 5 years TR4 (4 - 6 points) - Moderately suspicious FNA if = 1.5cm, follow - up if 1-1.4 cm in 1, 2, 3 and 5 years TR3 (3 points) - Mildly suspicious FNA if = 2.5cm, follow - up if 1.5-2.4 cm in 1, 3 and 5 years TR2 (2 points) - Not suspicious No FNA or follow-up TR1 (0 points) - Benign No FNA or follow-up -Biopsy no more than 2 nodules which meet FNA criteria. -Follow/report no more than 4 nodules with highest TR point totals. -Follow-up can stop at 5 years if there is no change in size. -If nodule TR level increases on follow-up the next sonogram should be done in one year. at 0054 Reported and signed by: Kan Peterson MD Electronically Signed: Kan Peterson MD at 0:52 EDT Tel , Service support ,
== END ==
PROVIDERS: PCP Internal Medicine; Referring Provider Nurse Practitioner Family; Visit Provider Nurse Practitioner Family
DX: E03.9 Hypothyroidism, unspecified (principal)
CPT/HCPCS: 76536

== ENCOUNTER → 2021-11-30 | Outpatient (CLI) | payer MEDICAID, SELFPAY ==
[2021-11-30 15:23] LABS: Absolute Lymphocyte Count 1.55 X10^3/uL (0.83-4.51); Absolute Neutrophil Count 7.5 X10^3/uL (2.0-7.7); Basophil# 0.07 X10^3/uL; Basophil% 0.7 % (0-1); Eosinophil# 0.28 X10^3/uL; Eosinophils% 2.7 % (0-5); Hematocrit 40.3 % (37-47); Hemoglobin 12.9 g/dL (12.0-15.0); Lymphocyte # 1.55 X10^3/ul (0.83-4.51); Lymphocyte % 15.2 % (19-41); Mean Corpuscular Volume 93.7 fL (81-99); Mean Platelet Vol. 10.9 fl (6.2-12.0); Monocyte% 7.8 % (0-10); NRBC Flagged by Analyzer 0 % (0-5); Neutrophil % 73.3 % (47-70); Platelet Count 277 K/mm3 (150-450); RBC Distribution Width CV 12.5 % (11.6-14.6); RBC Distribution Width SD 43.3 fl (35.1-43.9); White Blood Count 10.2 K/mm3 (4.4-11.0)
[2021-11-30 15:48] LABS: Microalbumin,Random Urine 8.8 mg/L (NO RANGE EST.); Microalbumin:Creatinine Ratio 8.1 mg/g CRE (<30 mg/g CRE)
[2021-11-30 16:17] LABS: Vitamin B12 561 pg/mL (211-911); Vitamin D,25 Hydroxy 49.3 ng/mL
[2021-11-30 16:22] LABS: ALB/GLOB Ratio 1.1 RATIO (0.9-2.4); AST(SGOT) 20 U/L (15-37); Alanine Aminotransfer ALT/SGPT 30 U/L (13-56); Albumin, Serum 3.8 g/dL (3.2-5.0); Alkaline Phosphatase 99 U/L (45-117); Anion Gap 5 (5-15); BUN 13 mg/dL (7-18); BUN/Creat Ratio 14.5 RATIO (10-20); Calcium,Total 9.8 mg/dL (8.5-10.1); Chloride 106 mmol/L (98-107); Cholesterol 148 mg/dL (200); EST Glomerular Filtration Rate 68 mL/min (>60); Est Glom Filt Rate - Afr Amer 83 mL/min (>60); Ferritin 74 ng/mL (8-252); Globulin 3.5 g/dL (2.2-4.2); Glucose 269 mg/dL (74-106); High Density Lipoprotein 35 mg/dL; Potassium 4.2 mmol/L (3.5-5.1); Protein, Total 7.3 g/dL (6.4-8.2); Sodium Level 140 mmol/L (136-145); T4 Free Direct 1.16 ng/dL (0.76-1.46); Thyroid Stim Hormone (TSH) 1.37 uIU/mL (0.358-3.74); Triglycerides 255 mg/dL; Very Low Density Lipoprotein 51 mg/dL (5-40)
== END | disposition home or self-care (01) ==
LOC: BIMLAB 14:24
PROVIDERS: PCP Internal Medicine; Referring Provider Internal Medicine Endocrinology, Diabetes & Metabolism; Visit Provider Internal Medicine Endocrinology, Diabetes & Metabolism
DX: E10.65 Type 1 diabetes mellitus with hyperglycemia (principal); I10 Essential (primary) hypertension; E78.2 Mixed hyperlipidemia; E03.9 Hypothyroidism, unspecified; R20.2 Paresthesia of skin; E55.9 Vitamin D deficiency, unspecified
CPT/HCPCS: 36415; 80053; 80061; 82043; 82306; 82570; 82607; 82728; 84439; 84443; 85025

== ENCOUNTER 2021-12-21 06:58 | Day surgery (SDC) | payer MEDICAID, SELFPAY ==
[2021-12-21] VITALS (7 sets, daily range): BP systolic 109–128; BP diastolic 55–70; PULSE 62–71; RESP 16; TEMP 36.1–36.7; O2SAT 97–100; BMI 27.3
[2021-12-21] MEDS: Lactated Ringers 1,000 ML 15 ML IV (07:41)
--- NOTE | 2021-12-21 07:59 | HP.PCM_ITS ---
HPI - General HPI Narrative CIRILO POZO, is a 56 F who presents for surveillance colonoscopy. The patient had a very large polyp 3 years ago and was recommended to have repeat in 3 years. She denies any abdominal pain or blood in the stool. She has no family history of colon cancer. [facility]LY [facility] Medical History (Updated 12/21/21 @ 08:[address] Yuan Chavez MD) Arthritis Diabetes type 1, controlled Dietary restriction Easy bruising HTN (hypertension) Hyperlipidemia Hypothyroidism Knee pain Non-smoker Paresthesia PONV (postoperative nausea and vomiting) Postmenopausal Thyroid nodule Wears glasses Home Medications loratadine 10 mg PO DAILY 12/20/19 [History Last Taken Unknown] cholecalciferol (vitamin D3) 25 mcg (1,000 unit) capsule 25 mcg PO DAILY 09/04/20 [History Last Taken Unknown] flash glucose scanning reader #1 ea 02/08/21 [Rx Last Taken Unknown] flash glucose sensor #1 ea 02/08/21 [History Last Taken Unknown] lisinopril 20 mg tablet 20 mg PO QDAY #90 tab 03/18/21 [Rx Last Taken 12/21/21 06:00] flash glucose sensor #2 ea 07/11/21 [Rx Last Taken Unknown] insulin aspart U-100 100 unit/mL (3 mL) subcutaneous pen 20 unit SUBCUT TID #15 ml 09/14/21 [Rx Last Taken Unknown] levothyroxine 75 mcg tablet 75 mcg PO DAILY #90 tab 09/14/21 [Rx Last Taken 12/21/21 06:00] atorvastatin 20 mg tablet 20 mg PO QDAY #90 tab 11/11/21 [Rx Last Taken Unknown] insulin NPH isoph U-100 human 100 unit/mL (3 mL) subcutaneous pen 20 unit SUBCUT . 11/30/21 [History Last Taken Unknown] Allergy/AdvReac Type Severity Reaction Status Date / Time No Known Allergies Allergy Verified 12/21/21 07:24 Family History Mother Diabetes Bleeding disorder High cholesterol Cancer Heart disease Hypertension Melanoma Father Alcoholism Sister Colon cancer Diabetes Brother Diabetes Surgical History (Updated 12/16/21 @ 11:20 by Mechelle King) H/O colonoscopy History of arthroscopic knee surgery History of History of carpal tunnel release of both wrists History of lumpectomy of right breast Social History Smoking Status: Never smoker second hand exposure: No alcohol intake: current substance use type: does not use Past Medical/Surgical History Planned Operation Planned Operative Procedure/s: Colonoscopy S.O.S: No Previous Hospitalizations/Surgeries HX Hospitalizations: No HX of Surgeries: FATTY TUMOR ROMEVED FROM RIGHT BREAST 1992 1999 RIGHT CARPAL TUNNEL RELEASE 2003 2012 hysteroscopy d&c colonoscopy/polypectomy 12/2019 right knee meniscus repair Any Problems With Anesthesia: Yes (PONV) You/Your Family Experience Fever (Hyperthermia) With Anes: No Cholinesterase deficiency: No Cardiovascular Hx Chest Pain within Last 2 months: No Hx of Irregular Heartbeat and/or Afib: No Hx Heart Attack: No Hx Congestive Heart Failure: No Hx Rheumatic Fever: No Hx Hypertension: Yes (per pt, controlled on meds) Hx Internal Defibrillator: No Hx Pacemaker: No Hx Cardiac Catheterization: No Hx Cardiac Surgery/Stents/Etc.: No Hx Stress Test: No Hx Pain in Legs when Walking/Leg Cramps: Yes (knee pain,right) Respiratory Chronic Cough: No HX of Shortness of Breath: Yes (slightly sob with 2 flights of stairs) Hoarseness: No Hx Chronic Obstructive Pulmonary Disease (COPD): No Hx Asthma: No Hx Emphysema: No Hx Sleep Apnea: No CPAP: No BIPAP: No Hx Respiratory Tract Infection/Cold (presently): No Do You Snore Loudly (louder than talking or can be heard): No Do You Often Feel Tired/ Fatigued/ Sleepy Dring Daytime?: No Has Anyone Observed You Stop Breathing During Sleep?: No Result (for STOP score): Negative Hx Smoking: No Smoking Status: Never smoker Gastrointestinal Hx Gastroesophageal Reflux: No Hx Gastrointestinal Disorders: Yes (hx polypectomy) Hx Gastrointestinal Bleed: No Hx Ulcer: No Hx Hiatal Hernia: No Difficulty Chewing/Swallowing: Yes (AT TIMES DIF SWALLOWING, HAS GOITERS) Special diet followed at home: Yes (DIABETIC DIET) Hx Unplanned Weight Loss of 20#: No HX Unplanned Weight Gain of 20#: No Neurological Hx Seizures: No HX Syncope/Blackout Spells/Unconsciousness: No Hx Transient Ischemic Attacks (TIA): No Hx Multiple Sclerosis: No Hx Parkinson's Disease: No Hx Head/Neck Injury: No Hx Headaches: Yes (occ) Hx Back Injury/Pain: No Recent Onset of Speech Difficulty: No Restless Legs: No Does patient have nerve stimulator: No Blood Disorder Hx Leukemia: No Bleeding Tendencies: Yes (bruises easily) Hx Deep Vein Thrombosis: No Hx High Cholesterol: Yes (ON MED) Blood Transmitted Disease: No Hx Hepatitis: No Hx Cirrhosis: No Hx Anemia: No (.) Hx Blood Disorders: No Reproduction : No Is Patient Lactating: No Hx Hysterectomy: No Hx Tubal Ligation: No Are You Post Menopause: Yes Genitourinary Hx Renal Disease: No Musculoskeletal Hx Arthritis: No Hx Rheumatoid Arthritis: No Hx Gout: No Recent Onset of an Orthopedic Problem: Yes (right knee) Endocrine Hx Diabetes: Yes (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) Insulin: Yes Thyroid Disease: Yes (nodules on thyroid) Hx Steroid Therapy: No (.) Psycho/Social Hx Substance Use: No Hx Alcohol Use: No Hx Anxiety: No Hx Depression: No Mental Illness: No Hx Dementia: No Miscellaneous Hx Cancer: No Recent Exposure to Contagious Disease: No Hx of C-Diff: No Any Loose Teeth: No Allergies No Known Allergies Allergy (Verified 12/21/21 07:24) Discharge Is Pt Admitted From a Long Term, or a Jail: No Who Could Help: family After D/C, Where Do you Plan to Go: Return Home Vital Signs Vital Signs Vital Signs: 12/21/21 07:25 Temperature 97 F L Temperature Source Temporal Pulse Rate 71 Respiratory Rate 16 Respiratory Pattern Normal Blood Pressure 128/67 H Blood Pressure Mean 87 Blood Pressure Source Monitor Blood Pressure Position Semi-Fowlers Blood Pressure Location Left Arm Pulse Ox 97 Oxygen Delivery Method Room Air Weight Weight: 149 lb 14.629 oz Body Mass Index (BMI) 27.3 Physical Exam Const alert and oriented x3 Resp normal respiratory effort and normal air movement Cardio regular rate and regular rhythm GI soft to palpation, non-tender and non-distended Assessment & Plan Assessment/Plan (1) Colon cancer screening: (2) History of colon polyps: PLAN: Patient is here for surveillance colonoscopy for history of large colon polyp. I explained endoscopy in detail to the patient. I explained the risks including but not limited to stroke or heart attack with anesthesia, perforation of the GI tract, bleeding, infection. I explained that any of these could necessitate further emergency surgery. The patient understands and all questions were answered sufficiently. The patient wishes to proceed with procedure. Yuan Cahvez MD Pager: [facility] [address] [place] [address] [address] [place] [address] Office: Surgery Risks - Colonoscopy Risks Include but are not Limited To: Risks include but are not limited to: Bleeding, perforation requiring further surgery, inability to complete colonoscopy requiring barium enema.
--- NOTE | 2021-12-21 08:35 | OP.COLON_ITS ---
Patient Name: Aylin Ceballos Procedure Date: 12/21/2021 8:05 AM Date of : 1965 Age: 56 Procedure: Colonoscopy Indications: High risk colon cancer surveillance: Personal history of adenoma (10 mm or greater in size) Providers: Yuan Chavez MD Medicines: Monitored Anesthesia Care Patient Profile: This is a 56 year old female. Refer to note in patient chart for documentation of history and physical. Last Colonoscopy: 3 years ago. Complications: No immediate complications. Procedure: Pre-Anesthesia Assessment: - Prior to the procedure, a History and Physical was performed, and patient medications and allergies were reviewed. The patient's tolerance of previous anesthesia was also reviewed. The risks and benefits of the procedure and the sedation options and risks were discussed with the patient. All questions were answered, and informed consent was obtained. Prior Anticoagulants: The patient has taken no previous anticoagulant or antiplatelet agents. After reviewing the risks and benefits, the patient was deemed in satisfactory condition to undergo the procedure. After I obtained informed consent, the scope was passed under direct vision. Throughout the procedure, the patient's blood pressure, pulse, and oxygen saturations were monitored continuously. The pediatric colonoscope was introduced through the anus and advanced to the cecum, identified by appendiceal orifice and ileocecal valve. The colonoscopy was performed without difficulty. The patient tolerated the procedure well. The quality of the bowel preparation was good. Scope In: 8:17:20 AM Scope Withdrawal Time 0 hours 6 minutes 11 seconds Scope Out: 8:29:13 AM Total Procedure Duration Time 0 hours 11 minutes 53 seconds Findings: The entire examined colon appeared normal on direct and retroflexion views. Impression: - The entire examined colon is normal on direct and retroflexion views. - No specimens collected. Recommendation: - Discharge patient to home. - Resume previous diet. - Continue present medications. - Repeat colonoscopy in 5 years for surveillance. Procedure Code(s): --- Professional --- 13533, Colonoscopy, flexible; diagnostic, including collection of specimen(s) by brushing or washing, when performed (separate procedure) Diagnosis Code(s): --- Professional --- Z86.010, Personal history of colonic polyps CPT copyright 2017 [employer]. All rights reserved. The codes documented in this report are preliminary and upon pairer review may be revised to meet current compliance requirements. Yuan Chavez MD 12/21/2021 8:34:14 AM This report has been signed electronically. Number of Addenda: 0 Note Initiated On: 12/21/2021 8:05 AM
--- NOTE | 2021-12-21 08:35 | OP.CCLET_ITS ---
12/21/2021 Cecy Vieyra [address] [place] [address] Re : Colonoscopy procedure for Aylin Tucker Dear Dr. Vieyra This procedure was performed on Tuesday, December 21, 2021. My impressions and recommendations are as follows: Impressions : - The entire examined colon is normal on direct and retroflexion views. - No specimens collected. Recommendations : - Discharge patient to home. - Resume previous diet. - Continue present medications. - Repeat colonoscopy in 5 years for surveillance. My findings are described in the full procedure note, which is enclosed. If I can be of further assistance, please feel free to contact me at Doctor phone number(s): , Work: . Sincerely, Yuan Chavez MD 12/21/2021 8:34:14 AM This report has been signed electronically.
== END 2021-12-21 09:15 | disposition home or self-care (01) ==
LOC: EN 06:59 → AC 07:00
PROVIDERS: PCP Internal Medicine; Referring Provider Internal Medicine; Visit Provider Surgery
PROC: 0DJD8ZZ Inspection of Lower Intestinal Tract, Via Natural or Artificial Opening Endoscopic (ICD-10-PCS; CPT 45378; principal; 2021-12-21 08:10)
DX: Z12.11 Encounter for screening for malignant neoplasm of colon (principal); E10.9 Type 1 diabetes mellitus without complications; Z79.4 Long term (current) use of insulin; I10 Essential (primary) hypertension; M17.11 Unilateral primary osteoarthritis, right knee; E78.2 Mixed hyperlipidemia; E03.9 Hypothyroidism, unspecified; E66.3 Overweight; Z68.27 Body mass index [BMI] 27.0-27.9, adult; Z78.0 Asymptomatic menopausal state; Z79.890 Hormone replacement therapy; Z79.899 Other long term (current) drug therapy; Z86.010 Personal history of colon polyps; Z80.0 Family history of malignant neoplasm of digestive organs
CPT/HCPCS: 45378; J7120; J2405

== ENCOUNTER → 2022-11-21 | Outpatient (CLI) | payer MEDICAID, SELFPAY ==
[2022-11-21 12:28] LABS: Vitamin D,25 Hydroxy 59.3 ng/mL
[2022-11-21 12:30] LABS: ALB/GLOB Ratio 1.1 RATIO (0.9-2.4); AST(SGOT) 21 U/L (15-37); Alanine Aminotransfer ALT/SGPT 28 U/L (13-56); Albumin, Serum 4.2 g/dL (3.2-5.0); Alkaline Phosphatase 125 U/L (45-117); Anion Gap 5 (5-15); BUN 16 mg/dL (7-18); BUN/Creat Ratio 16.4 RATIO (10-20); Calcium,Total 10.5 mg/dL (8.5-10.1); Chloride 103 mmol/L (98-107); Cholesterol 173 mg/dL (200); Creatinine, Serum 0.97 mg/dL (0.55-1.02); EST Glomerular Filtration Rate 62 mL/min (>60); Est Glom Filt Rate - Afr Amer 75 mL/min (>60); Globulin 3.9 g/dL (2.2-4.2); Glucose 154 mg/dL (74-106); High Density Lipoprotein 39 mg/dL; Potassium 4.1 mmol/L (3.5-5.1); Protein, Total 8.1 g/dL (6.4-8.2); Sodium Level 135 mmol/L (136-145); T4 Free Direct 1.17 ng/dL (0.76-1.46); Thyroid Stim Hormone (TSH) 2.86 uIU/mL (0.358-3.74); Triglycerides 123 mg/dL; Very Low Density Lipoprotein 25 mg/dL (5-40)
[2022-11-21 12:40] LABS: Microalbumin,Random Urine 13.7 mg/L (NO RANGE EST.); Microalbumin:Creatinine Ratio 8.8 mg/g CRE (<30 mg/g CRE)
== END | disposition home or self-care (01) ==
LOC: BIMLAB 11:13
PROVIDERS: PCP Internal Medicine; Referring Provider Internal Medicine Endocrinology, Diabetes & Metabolism; Visit Provider Internal Medicine Endocrinology, Diabetes & Metabolism
DX: E10.9 Type 1 diabetes mellitus without complications (principal); E03.9 Hypothyroidism, unspecified; E78.2 Mixed hyperlipidemia; I10 Essential (primary) hypertension; E55.9 Vitamin D deficiency, unspecified
CPT/HCPCS: 36415; 80053; 80061; 82043; 82306; 82570; 84439; 84443

== ENCOUNTER → 2023-05-01 | Outpatient (CLI) | payer MEDICAID, SELFPAY ==
--- NOTE | 2023-05-01 13:33 | BI_ITS ---
MAMMOGRAPHY - BILATERAL SCREENING 3-D TOMOSYNTHESIS REASON FOR EXAM: Female, 58 years old. SCREENING PERTINENT HISTORY: No significant family history. TECHNIQUE: 2-D mammograms and 3-D Tomosynthesis of the breast (s) were performed. CAD was performed. COMPARISON: 05/12/2020 FINDINGS: The breast composition is heterogeneously dense that can obscure small breast masses. Scattered benign calcifications are seen. No dense spiculated masses or suspicious microcalcifications are identified. No architectural distortion is identified. There is no skin thickening or retraction. There has been no significant change since the prior study. BI/SCRN MAMM (CAD)W/ALFONZO BILAT IMPRESSION: No mammographic signs of malignancy. Routine yearly mammograms recommended. ASSESSMENT CATEGORY: BIRADS Category 1: Negative. A letter regarding these results will be sent to the patient by the facility within 30 days. FOLLOW UP RECOMMENDATION: Yearly follow up mammogram recommended. (A) Approximately 10% of breast cancers are not detected by mammography. A normal mammogram should not delay biopsy of a clinically suspicious abnormality. Electronically Signed: Vasquez Gaspar MD at 14:17 EDT ,
== END | disposition home or self-care (01) ==
PROVIDERS: PCP Internal Medicine; Referring Provider Nurse Practitioner Family; Visit Provider Nurse Practitioner Family
DX: Z12.31 Encounter for screening mammogram for malignant neoplasm of breast (principal)
CPT/HCPCS: 77063; 77067

== ENCOUNTER → 2023-11-07 | Outpatient (CLI) | payer MEDICAID, SELFPAY ==
--- NOTE | 2023-11-07 09:22 | RAD_ITS ---
STUDY: X-RAY - RIGHT FOOT CLINICAL: Female, 58 years old. PLANTAR FASCIAL FIBROMATOSIS TECHNIQUE: 3 view(s) of the foot. COMPARISON: None. FINDINGS: Normal talus, calcaneus, and tarsal bones. Normal visualized subtalar, talonavicular, calcaneocuboid, tarsal and tarsometatarsal articulations. Normal metatarsi. Minor enthesopathy is present at the Achilles tendon insertion site. Normal metatarsophalangeal joint of the great toe. Normal tibial and fibular sesamoid bones. Normal interphalangeal joint of the great toe. Normal phalanges of the great toe. Normal second through fifth metatarsophalangeal joints. Normal interphalangeal joints and phalanges of the lesser toes. The soft tissue structures are unremarkable. There is no demonstrated fracture. RAD/Foot min 3 Views IMPRESSION: 1. Minor enthesopathy is present at the Achilles tendon insertion site. Electronically Signed: Bebo Hameed MD at 14:18 EDT ,
== END | disposition home or self-care (01) ==
PROVIDERS: PCP Nurse Practitioner Family; Referring Provider Nurse Practitioner Family; Visit Provider Nurse Practitioner Family
DX: M72.0 Palmar fascial fibromatosis [Dupuytren] (principal)
CPT/HCPCS: 73630

== ENCOUNTER → 2024-02-26 | Outpatient (CLI) | payer MEDICAID, SELFPAY ==
[2024-02-26 12:56] LABS: Microalbumin,Random Urine 19.4 mg/L (NO RANGE EST.); Microalbumin:Creatinine Ratio 10.8 mg/g CRE (<30 mg/g CRE)
[2024-02-26 15:36] LABS: Vitamin D,25 Hydroxy 99.8 ng/mL
[2024-02-26 16:10] LABS: AST(SGOT) 28 U/L (15-37); Alanine Aminotransfer ALT/SGPT 44 U/L (13-56); Albumin, Serum 3.6 g/dL (3.2-5.0); Alkaline Phosphatase 92 U/L (45-117); Anion Gap 6 (5-15); BUN 18 mg/dL (7-18); BUN/Creat Ratio 19.2 RATIO (10-20); Calcium,Total 9.8 mg/dL (8.5-10.1); Chloride 107 mmol/L (98-107); Cholesterol 142 mg/dL (200); Creatinine, Serum 0.94 mg/dL (0.55-1.02); EST Glomerular Filtration Rate 64 mL/min (>60); Est Glom Filt Rate - Afr Amer 78 mL/min (>60); Globulin 3.5 g/dL (2.2-4.2); Glucose 236 mg/dL (74-106); High Density Lipoprotein 37 mg/dL; Potassium 4.2 mmol/L (3.5-5.1); Protein, Total 7.1 g/dL (6.4-8.2); Sodium Level 136 mmol/L (136-145); Thyroid Stim Hormone (TSH) 2.67 uIU/mL (0.358-3.74); Triglycerides 102 mg/dL; Very Low Density Lipoprotein 20 mg/dL (5-40)
== END | disposition home or self-care (01) ==
PROVIDERS: PCP Nurse Practitioner Family; Referring Provider Internal Medicine Endocrinology, Diabetes & Metabolism; Visit Provider Internal Medicine Endocrinology, Diabetes & Metabolism
DX: E10.65 Type 1 diabetes mellitus with hyperglycemia (principal); I10 Essential (primary) hypertension; E03.9 Hypothyroidism, unspecified; Z96.41 Presence of insulin pump (external) (internal); E55.9 Vitamin D deficiency, unspecified
CPT/HCPCS: 36415; 80053; 80061; 82043; 82306; 82570; 84443

== ENCOUNTER → 2024-04-23 | Outpatient (CLI) | payer MEDICAID, SELFPAY ==
[2024-04-23 16:01] LABS: T4 Free Direct 1.18 ng/dL (0.76-1.46)
== END | disposition home or self-care (01) ==
LOC: MTLAB 13:14
PROVIDERS: PCP Nurse Practitioner Family; Referring Provider Nurse Practitioner Family; Visit Provider Nurse Practitioner Family
DX: E03.9 Hypothyroidism, unspecified (principal)
CPT/HCPCS: 36415; 84439; 84443

== ENCOUNTER → 2024-05-21 | Outpatient (CLI) | payer MEDICAID, SELFPAY ==
--- NOTE | 2024-05-21 15:03 | BI_ITS ---
MAMMOGRAPHY - BILATERAL SCREENING REASON FOR EXAM: Female, 59 years old. Routine annual screening examination. PERTINENT HISTORY: Non-contributory. TECHNIQUE: Digital bilateral breast alfonzo (3D mammographic acquisition) in the CC and MLO projections. 2-D mediolateral oblique (MLO) and craniocaudad (CC) views of both breasts were obtained. CAD: Full Field Digital Mammography with Computer Added Detection was performed. COMPARISON: Comparison is made with prior study dated May 01, 2023 and May 12, 2020. FINDINGS: Breast Composition: The breasts are heterogeneously dense, which may obscure small masses. There are no dominant masses or suspicious calcifications. Stable small bilateral fat containing axillary lymph nodes. No other significant abnormalities are identified. There has been no significant change since the prior study. BI/SCRN MAMM (CAD)W/ALFONZO BILAT IMPRESSION: Stable bilateral screening mammogram. Yearly follow-up mammogram recommended. (A) ASSESSMENT CATEGORY: BIRADS Category 2: Benign. A letter regarding these results will be sent to the patient by the facility within 30 days. Approximately 10% of breast cancers are not detected by mammography. A normal mammogram should not delay biopsy of a clinically suspicious abnormality. [id number] Electronically Signed: Jorge Santizo MD at 9:55 EST ,
== END | disposition home or self-care (01) ==
LOC: OPBI 15:00
PROVIDERS: PCP Nurse Practitioner Family; Referring Provider Nurse Practitioner Family; Visit Provider Nurse Practitioner Family
DX: Z12.31 Encounter for screening mammogram for malignant neoplasm of breast (principal)
CPT/HCPCS: 77063; 77067

== ENCOUNTER → 2024-06-26 | Outpatient (CLI) | payer MEDICAID, SELFPAY ==
[2024-06-26 15:26] LABS: Absolute Lymphocyte Count 2.26 X10^3/uL (0.83-4.51); Absolute Neutrophil Count 4.4 X10^3/uL (2.0-7.7); Basophil# 0.09 X10^3/uL; Basophil% 1.1 % (0-1); Eosinophil# 0.43 X10^3/uL; Eosinophils% 5.5 % (0-5); Hematocrit 38.9 % (37-47); Hemoglobin 12.7 g/dL (12.0-15.0); Lymphocyte # 2.26 X10^3/ul (0.83-4.51); Lymphocyte % 28.7 % (19-41); Mean Corp Hgb Conc 32.6 g/dL (32-36); Mean Corpuscular Hgb 29.7 pg (27.0-32.0); Mean Corpuscular Volume 90.9 fL (81-99); Mean Platelet Vol. 11.2 fl (6.2-12.0); Monocyte# 0.72 X10^3/uL; Monocyte% 9.1 % (0-10); NRBC Flagged by Analyzer 0 % (0-5); Neutrophil # 4.37 X10^3/uL (2.7-7.7); Neutrophil % 55.5 % (47-70); Platelet Count 265 K/mm3 (150-450); RBC Distribution Width CV 12.7 % (11.6-14.6); RBC Distribution Width SD 41.9 fl (35.1-43.9); Red Blood Count 4.28 M/mm3 (4.2-5.4); White Blood Count 7.9 K/mm3 (4.4-11.0)
[2024-06-26 15:47] LABS: Anion Gap 7 (5-15); BUN 9 mg/dL (7-18); BUN/Creat Ratio 10.1 RATIO (10-20); Calcium,Total 9.5 mg/dL (8.5-10.1); Chloride 106 mmol/L (98-107); Creatinine, Serum 0.89 mg/dL (0.55-1.02); EST Glomerular Filtration Rate 68 mL/min (>60); Est Glom Filt Rate - Afr Amer 83 mL/min (>60); Glucose 231 mg/dL (74-106); Potassium 3.9 mmol/L (3.5-5.1); Sodium Level 136 mmol/L (136-145)
[2024-06-26 15:48] LABS: Vitamin B12 491 pg/mL (211-911); Vitamin D,25 Hydroxy 44.6 ng/mL
== END | disposition home or self-care (01) ==
LOC: MTLAB 13:22
PROVIDERS: Nurse Practitioner Family; PCP Nurse Practitioner Family; Referring Provider Nurse Practitioner Family; Visit Provider Nurse Practitioner Family
DX: E53.8 Deficiency of other specified B group vitamins (principal); I10 Essential (primary) hypertension
CPT/HCPCS: 36415; 80048; 82306; 82607; 85025

== ENCOUNTER → 2024-10-16 | Outpatient (CLI) | payer MEDICAID, SELFPAY ==
[2024-10-16 17:10] LABS: Absolute Lymphocyte Count 2.59 X10^3/uL (0.83-4.51); Absolute Neutrophil Count 5.2 X10^3/uL (2.0-7.7); Basophil# 0.08 X10^3/uL; Basophil% 0.9 % (0-1); Eosinophil# 0.43 X10^3/uL; Eosinophils% 4.6 % (0-5); Hematocrit 42.2 % (37-47); Hemoglobin 13.8 g/dL (12.0-15.0); Lymphocyte # 2.59 X10^3/ul (0.83-4.51); Lymphocyte % 27.8 % (19-41); Mean Corp Hgb Conc 32.7 g/dL (32-36); Mean Corpuscular Hgb 29.4 pg (27.0-32.0); Monocyte# 0.97 X10^3/uL; Monocyte% 10.4 % (0-10); NRBC Flagged by Analyzer 0 % (0-5); Neutrophil # 5.23 X10^3/uL (2.7-7.7); Neutrophil % 56.2 % (47-70); Platelet Count 330 K/mm3 (150-450); RBC Distribution Width CV 13.5 % (11.6-14.6); RBC Distribution Width SD 44.9 fl (35.1-43.9); Red Blood Count 4.69 M/mm3 (4.2-5.4); White Blood Count 9.3 K/mm3 (4.4-11.0)
[2024-10-16 18:26] LABS: ALB/GLOB Ratio 1.3 RATIO (0.9-2.4); AST(SGOT) 25 U/L (<=31); Alanine Aminotransfer ALT/SGPT 21 U/L (<=34); Albumin, Serum 4.4 g/dL (3.4-4.8); Alkaline Phosphatase 135 U/L (35-104); Anion Gap 12 (5-15); BUN 15 mg/dL (4-19); BUN/Creat Ratio 18.5 RATIO (10-20); Calcium,Total 10.4 mg/dL (7.6-11.0); Carbon Dioxide 23.1 mmol/L (21.0-32.0); Chloride 103 mmol/L (98-108); Cholesterol 190 mg/dL (<=200); Creatinine, Serum 0.83 mg/dL (0.70-1.20); EST Glomerular Filtration Rate 80 (>60); Globulin 3.3 g/dL (2.2-4.2); Glucose 197 mg/dL (70-99); High Density Lipoprotein 44 mg/dL; Low Density Lipoprotein Calc. 117 mg/dL; Potassium 4.1 mmol/L (3.3-5.1); Protein, Total 7.7 g/dL (5.9-8.4); Sodium Level 138 mmol/L (133-145); Total Bilirubin 0.25 mg/dL (0.00-1.30); Triglycerides 144 mg/dL; Very Low Density Lipoprotein 29 mg/dL (5-40); Vitamin D,25 Hydroxy 40.1 ng/mL (30-100); cholesterol:hdl ratio screen 4.29
== END | disposition home or self-care (01) ==
LOC: VSLAB 16:25
PROVIDERS: PCP Nurse Practitioner Family; Visit Provider Nurse Practitioner Family
DX: I10 Essential (primary) hypertension (principal); E55.9 Vitamin D deficiency, unspecified; E78.5 Hyperlipidemia, unspecified
CPT/HCPCS: 36415; 80053; 80061; 82306; 84443; 85025

== ENCOUNTER → 2025-02-04 | Outpatient (CLI) | payer MEDICAID, SELFPAY ==
--- NOTE | 2025-02-04 09:50 | NEURO ---
NCS and/or EMG Patient Report Ordering Doctor: Savage Sanchez DATE OF SERVICE: 02/04/25 Clinical Summary: 59 year old female patient with symptoms of numbness and tingling in the left hand. Nerve Conduction Studies Summary: Nerve conduction studies were performed in the left hand. The left median-D2 SNAP distal latency was prolonged with reduced amplitude. The left median-APB CMAP distal latency was prolonged with reduced amplitude. The left median motor conduction velocity was reduced in the forearm segment. Needle Examination Summary: Needle examination of select muscles of the left upper extremity demonstrated a higher proportion of motor unit action potentials with reduced recruitment, increased amplitude, increased duration, and polyphasia in the left abductor pollicis brevis muscle. Impression: This is an abnormal study. 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
== END | disposition home or self-care (01) ==
LOC: PSN 08:38
PROVIDERS: PCP Nurse Practitioner Family; Referring Provider Orthopaedic Surgery; Visit Provider Orthopaedic Surgery
DX: G56.02 Carpal tunnel syndrome, left upper limb (principal)
CPT/HCPCS: 95886; 95909

== ENCOUNTER 2025-02-25 05:56 | Day surgery (SDC) | payer MEDICAID, SELFPAY ==
[2025-02-25] VITALS (10 sets, daily range): BP systolic 77–112; BP diastolic 41–67; PULSE 53–61; RESP 12–16; TEMP 36.1–36.3; O2SAT 92–96; BMI 29.0
--- OUTSIDE RECORDS SUMMARY | 2025-02-25 06:02 | XMS RPT_ITS | CCD ---
Author Organization [facility] Care Team Providers Care Body Presser Name Role Phone Allison JONES, Jenny Mckeon Unavailable Vandana MARTINO, Jana K Unavailable Unavailable Cecy Alarcon Unavailable Terrie Chris Unavailable SheridanlateshasuzyMelyssa E Unavailable Emily Khan Unavailable Unavailable Slarb, Zeynep Unavailable Unavailable Career Orientation Teacher, System Unavailable Unavailable Unavailable Unavailable Remberto Lubin Unavailable Mignon Burgos Unavailable Unavailable Gravius, Torri Unavailable Unavailable [facility] Unavailable Gravius, Torri Unavailable Unavailable MessengerMignon Unavailable Unavailable Brenda Benitez Unavailable Unavailable Cecy Alarcon DO Unavailable [facility], [facility] Unavailable Gravius RECOVERY RN, Torri Unavailable Unavailable Cross DIRECTOR OF MATERNITY SERVICES, Brenda Unavailable Unavailable Slarb DIRECTOR OF MATERNITY SERVICES, Zeynep Unavailable Unavailable Messenger Mignon CA Unavailable Unavailable Unavailable Unavailable Dr. Cecy Alarcon Primary Care Provider [phone] Gabriella Lubin Attending Provider Unavailable Dr. Cecy Alarcon Referring Provider Dr. Remberto Lubin Attending Provider Dr. Yuan Chavez Attending Provider Dr. Yuan Chavez Other Provider Cecy Alarcon DO Unavailable [phone] Cecy Alarcon Primary Care Provider [phone] Dr. Cecy Alarcon Referring Provider Dr. Remberto Lubin Attending Provider Dr. Cecy Alarcon Primary Care Provider Dr. Cecy Alarcon Referring Provider Dr. Remberto Lubin Attending Provider Jarrell DO, Cecy Crow Primary Care Provider Chace STROKE COORDINATOR, Anila Unavailable TESTAMY LANCASTER Referring Unavailable CECY ALARCON Primary Care Unavailab le TESTAMY LANCASTER Attending Unavailable CECY ALARCON Primary Care Unavailab le Chace STROKE COORDINATOR-C, Anila Primary Care Provider Chace STROKE COORDINATOR-C, Anila Attending Provider Chace STROKE COORDINATOR-C, Anila Referring Provider King JESSENIA, Dr. Sr Attending Provider Dr. Savage Sanchez DO Attending Provider Dr. Savage Sanchez DO Referring Provider Laura NO, Dr. aWn Other Provider Bobbi RUELAS, Dr. Del Rio Attending Provider Chace C, [facility] Primary Care Unavailabl e Chong Hogue Attending Unavailable Chace VS, [facility] Primary Care Unavailabl Netta Cisneros Referring Unavailable Netta Rouse Attending Unavailable Chace KAISER HAYWARD, [facility] Primary Care Unavailabl e Chace VSC, Anila Referring Unavailabl e Chace VSC, Anila Attending Unavailabl e Chace VSC, [facility] Primary Care Unavailabl Remberto Georges Referring Unavailable Remberto Lubin Attending Unavailable Chace VS, [facility] Primary Care Unavailabl e Chace VSC, Anila Referring Unavailabl e Savage Sanchez Attending Unavailable Chace VSC, [facility] Primary Care Unavailabl e Chace VSC, Anila Referring Unavailabl e Netta Rouse Consulting Unavailable Chace VSC, Anila Attending Unavailabl e Chace VSC, Anila Primary Care Unavailabl e Chace VSC, Anila Attending Unavailabl e Chace VSC, [facility] Primary Care Unavailabl e Stevenruso, Savage Attending Unavailable Laura, Savage Referring Unavailable Chace VSC, [facility] Primary Care Unavailabl e Borruso, Savage Attending Unavailable Savage Sanchez Referring Unavailable Chace C, [facility] Primary Care Unavailabl e Chace VSC, Anila Referring Unavailabl e Tristian, Remberto Attending Unavailable Chace VSC, [facility] Primary Care Unavailabl e Chace VSC, Anila Referring Unavailabl e Tristian, Remberto Attending Unavailable Chace C, [facility] Primary Care Unavailabl e Chace VSC, Anila Referring Unavailabl e Borruso, Savage Attending Unavailable Chace VSC, [facility] Primary Care Unavailabl e Bobbi, Ahmad Attending Unavailable Laura, Savage Consulting Unavailable Nicoso, Savage [facility]erring [facility] Unavailabl e Chace VSC, Anila Referring Unavailabl e Borruso, Savage Attending Unavailable Medications Current Medications Medication Drug Class(es) Dates Sig (Normalized) Sig (Original) amLODIPine 5 mg oral tablet (4 sources) Dihydropyridine Calcium Channel Jackelyn Start: 04-15-2024 take 1 tablet by mouth once daily Amlodipine 5 mg tablet Active 5 mg PO daily April 15, 2024 12:00am Blood-Glucose Meter,Continuous (Dexcom G6 Lead Consultant) misc (2 sources) Start: 07-13-2022 Blood-Glucose Meter,Continuous (Dexcom G6 Lead Consultant) misc Active 0 .Route 1 July 13, 2022 1:00am As directed Blood-Glucose Sensor (Dexcom G7 Sensor) device (8 sources) Start: 08-27-2024 Blood-Glucose Sensor (Dexcom G7 Sensor) device Active 0 .Route 3 August 27, 2024 1:00am change every 10 days Start: 08-27-2024 Blood-Glucose Sensor (Dexcom G7 Sensor) device Active 0 .Route 3 August 27, 2024 1:00am change every 10 days Start: 02-20-2024 End: 04-10-2024 Blood-Glucose Sensor (Dexcom G7 Sensor) device Discontinued 0 .Route 3 February 20, 2024 12:00am April 10, 2024 3:27pm As directed Start: 02-20-2024 End: 04-10-2024 Blood-Glucose Sensor (Dexcom G7 Sensor) device Discontinued 0 .Route 3 February 20, 2024 12:00am April 10, 2024 3:27pm As directed celecoxib 100 mg oral capsule (4 sources) Nonsteroidal Anti-inflammatory Drug Start: 04-15-2024 Celecoxib (Celebrex) 100 mg capsule Active 100 mg PO TWICE A DAY 60 0 April 15, 2024 12:00am Take regularly x 2 weeks then as needed. Do not take in conjunction with other NSAID including ibuprofen. Tylenol is okay. cholecalciferol 0.125 mg oral capsule (12 sources) Vitamin D Start: 02-20-2024 take 1 capsule by mouth once daily Cholecalciferol (Vitamin D3) 125 mcg (5,000 unit) capsule Active 125 ug PO DAILY February 20, 2024 12:00am Start: 09-04-2020 End: 02-20-2024 take 1 capsule by mouth once daily Cholecalciferol (Vitamin D3) 25 mcg (1,000 unit) capsule Discontinued 25 ug PO DAILY September 04, 2020 1:00am February 20, 2024 1:01pm DEXCOM G6 TRANSMITTER en (1 source) Start: 09-15-2023 DEXCOM G6 TRANSMITTER en as directed. 0 09/15/2023 Active ibuprofen 800 mg oral tablet (9 sources) Nonsteroidal Anti-inflammatory Drug Start: 11-07-2023 take 1 tablet by mouth every eight hours as needed ibuprofen (MOTRIN) 800 mg tablet Take 800 mg by mouth three times a day as needed. 0 11/07/2023 Active Start: 05-14-2015 End: 06-26-2017 take 1 tablet by mouth three times daily as needed Ibuprofen 800 MG tablet Discontinued 800 mg PO 3 TIMES DAILY NEEDED as needed for Cramp 30 1 May 14, 2015 12:00am June 26, 2017 10:18am Insulin Pump Cart,Auto,Bt,G6 /7 (Omnipod 5 G6-G7 Pods (Gen 5)) cartridge (8 sources) Start: 12-10-2024 Insulin Pump C art,Auto,Bt,G6/7 (Omnipod 5 G6-G7 Pods (Gen 5)) cartridge Active 0 .Route 12 December 10, 2024 1:42pm change every 60 hours Start: 12-10-2024 Insulin Pump C art,Auto,Bt,G6/7 (Omnipod 5 G6-G7 Pods (Gen 5)) cartridge Active 0 .Route December 10, 2024 1:42pm change every 60 hours Start: 08-12-2024 End: 12-10-2024 Insulin Pump Cart,Auto,Bt,G6 /7 (Omnipod 5 G6-G7 Pods (Gen 5)) cartridge Discontinued 0 .Route 10 August 12, 2024 1:00am December 10, 2024 1:42pm As directed Start: 08-12-2024 End: 12-10-2024 Insulin Pump Cart,Auto,Bt,G6 /7 (Omnipod 5 G6-G7 Pods (Gen 5)) cartridge Discontinued 0 .Route August 12, 2024 1:00am December 10, 2024 1:42pm As directed multivitamin tablet (2 sources) take 1 tablet by mouth once daily multivitamin tablet Take 1 tablet by mouth once daily. 0 Active OMNIPOD 5 G6 PODS, GEN 5, crtg (1 source) Start: OMNIPOD 5 G6 PODS, GEN 5, crtg propranolol hydrochloride 20 mg oral tablet (5 sources) beta-Adrenergic Jackelyn Start: take 1 tablet by mouth twice daily as needed Propranolol 20 mg tablet Active 20 mg PO TWICE A DAY as needed February 20, 2024 12:00am Start: 12-02-2023 propranolol (I NDERAL) 20 mg tablet sertraline 50 mg oral tablet (5 sources) Serotonin Reuptake Inhibitor Start: 02-20-2024 take 1 tablet by mouth once daily Sertraline 50 mg tablet Active 50 mg PO daily February 20, 2024 12:00am Start: 12-02-2023 sertraline (ZO LOFT) 50 mg tablet Completed/Discontinued Medications Medication Drug Class(es) Dates Sig (Normalized) Sig (Original) acetaminophen 500 mg oral tablet (8 sources) Start: 12-20-2019 End: 03-19-2020 take 500-1000 mg by mouth every six hours as needed for pain Acetaminophen 500 MG tablet Discontinued 500 - 1000 mg PO EVERY 6 HOURS NEEDED as needed for Pain Or Fever December 20, 2019 12:00am March 19, 2020 1:32pm acetaminophen 325 mg / HYDROcodone bitartrate 5 mg oral tablet (16 sources) Opioid Agonist Start: 11-04-2020 End: 11-09-2020 Hydrocodone-Acetamin ophen 1 TABLET tablet Discontinued 1 - 2 {tbl} PO EVERY 6 HOURS NEEDED as needed for Pain 40 5 0 November 04, 2020 November 08, 2020 12:00am November 09, 2020 12:03am Postoperative pain Other acute postprocedural pain take as prescribed Start: 11-04-2020 End: 11-09-2020 take 1 tablet by mouth every six hours as needed Hydrocodone-Acetaminophen Discontinued 1 - 2 TABLET PO EVERY 6 HOURS NEEDED 40 5 November 04, 2020 November 09, 2020 12:03am take as prescribed Start: 12-27-2019 End: 01-01-2020 take 1-2 tablets by mouth every six hours as needed for pain Hydrocodone-Acetaminophen 1 TABLET table t Discontinued 1 - 2 {tbl} PO EVERY 6 HOURS NEEDED as needed for Pain 25 5 0 December 27, 2019 December 31, 2019 12:00am January 01, 2020 12:02am Postoperative pain Other acute postprocedural pain stop all other narcotics and tylenol meds Start: 12-27-2019 End: 01-01-2020 take 1-2 tablets by mouth every six hours as needed Hydrocodone-Acetaminophen Discontinued 1 - 2 TABLET PO EVERY 6 HOURS NEEDED 25 5 December 27, 2019 January 01, 2020 12:02am stop all other narcotics and tylenol meds acetaminophen 325 mg / oxyCODONE hydrochloride 5 mg oral tablet (8 sources) Opioid Agonist Start: 05-14-2015 End: 06-26-2017 Oxycodone-Acetaminophen 1 TABLET tablet Discontinued 1 - 2 {tbl} PO EVERY 4 HOURS NEEDED as needed for Abdominal Pain May 14, 2015 12:00am June 26, 2017 10:17am Start: 05-14-2015 End: 06-26-2017 take 1 tablet by mouth every four hours as needed Oxycodone-Acetaminophen Discontinued 1 - 2 TABLET PO EVERY 4 HOURS NEEDED May 14, 2015 12:00am June 26, 2017 10:17am atorvastatin 20 mg oral tablet (20 sources) HMG-CoA Reductase Inhibitor Start: 04-20-2015 End: 06-17-2024 take 1 tablet by mouth once daily Atorvastatin 20 mg tablet Discontinued 20 mg PO daily 2 July 11, 2023 9:26pm June 17, 2024 1:46pm Type 1 diabetes mellitus with hyperglycemia Blood-Glucose Sensor (Dexcom G6 Sensor) device (20 sources) Start: 04-10-2024 End: 08-27-2024 Blood-Glucose Sensor (Dexcom G6 Sensor) device Discontinued 0 .Route 3 April 10, 2024 12:00am August 27, 2024 8:23am Type 1 diabetes mellitus Type 1 diabetes mellitus with hyperglycemia 1 sensor q 10 days Start: 04-10-2024 End: 08-27-2024 Blood-Glucose Sensor (Dexcom G6 Sensor) device Discontinued 0 .Route April 10, 2024 12:00am August 27, 2024 8:23am 1 sensor q 10 days Start: 09-15-2023 End: 02-20-2024 Blood-Glucose Sensor (Dexcom G6 Sensor) device Discontinued 0 .Route 3 September 15, 2023 12:30pm February 20, 2024 1:36pm Type 1 diabetes mellitus Type 1 diabetes mellitus with hyperglycemia 1 sensor q 10 days Start: 09-15-2023 End: 02-20-2024 Blood-Glucose Sensor (Dexcom G6 Sensor) device Discontinued 0 .Route 3 September 15, 2023 12:30pm February 20, 2024 1:36pm 1 sensor q 10 days Start: 09-15-2023 Blood-Glucose Sensor (Dexcom G6 Sensor) device Active 0 .Route 3 September 15, 2023 12:30pm 1 sensor q 10 days Start: 09-11-2023 End: 09-15-2023 Blood-Glucose Sensor (Dexcom G6 Sensor) device Discontinued 0 .Route 3 September 11, 2023 2:18pm September 15, 2023 12:30pm Type 1 diabetes mellitus Type 1 diabetes mellitus with hyperglycemia 1 sensor q 10 days Start: 09-11-2023 End: 09-15-2023 Blood-Glucose Sensor (Dexcom G6 Sensor) device Discontinued 0 .Route 3 September 11, 2023 2:18pm September 15, 2023 12:30pm 1 sensor q 10 days Start: 06-02-2023 End: 09-11-2023 Blood-Glucose Sensor (Dexcom G6 Sensor) device Discontinued 0 .Route 3 June 02, 2023 8:34am September 11, 2023 2:18pm As directed Start: 06-02-2023 End: 09-11-2023 Blood-Glucose Sensor (Dexcom G6 Sensor) device Discontinued 0 .Route 3 June 02, 2023 8:34am September 11, 2023 2:18pm As directed Start: 02-20-2023 End: 06-02-2023 Blood-Glucose Sensor (Dexcom G6 Sensor) device Discontinued 0 .Route 3 February 20, 2023 2:16pm June 02, 2023 8:34am As directed Start: 02-20-2023 End: 06-02-2023 Blood-Glucose Sensor (Dexcom G6 Sensor) device Discontinued 0 .Route 3 February 20, 2023 2:16pm June 02, 2023 8:34am As directed Start: 07-06-2022 End: 02-20-2023 Blood-Glucose Sensor (Dexcom G6 Sensor) device Discontinued 0 .Route 3 July 06, 2022 11:01am February 20, 2023 2:16pm As directed Start: 07-06-2022 End: 02-20-2023 Blood-Glucose Sensor (Dexcom G6 Sensor) device Discontinued 0 .Route 3 July 06, 2022 11:01am February 20, 2023 2:16pm As directed Start: 07-06-2022 Blood-Glucose Sensor (Dexcom G6 Sensor) device Active 0 .Route 3 July 06, 2022 11:01am As directed Start: 05-19-2022 End: 07-06-2022 Blood-Glucose Sensor (Dexcom G6 Sensor) device Discontinued 0 .Route 3 May 19, 2022 12:00am July 06, 2022 11:01am As directed Start: 05-19-2022 End: 07-06-2022 Blood-Glucose Sensor (Dexcom G6 Sensor) device Discontinued 0 .Route May 19, 2022 12:00am July 06, 2022 11:01am As directed Blood-Glucose Transmitter (Dexcom G6 Transmitter) device (20 sources) Start: 04-10-2024 End: 08-27-2024 Blood-Glucose Transmitter (Dexcom G6 Transmitter) device Discontinued 0 .Route 1 April 10, 2024 12:00am August 27, 2024 8:23am Type 1 diabetes mellitus Type 1 diabetes mellitus with hyperglycemia 1 transmitter q 90 days Start: 04-10-2024 End: 08-27-2024 Blood-Glucose Transmitter (D excom G6 Transmitter) device Discontinued 0 .Route 1 April 10, 2024 12:00am August 27, 2024 8:23am 1 transmitter q 90 days Start: 09-15-2023 End: 02-20-2024 Blood-Glucose Transmitter (D excom G6 Transmitter) device Discontinued 0 .Route 1 September 15, 2023 12:30pm February 20, 2024 1:36pm As directed Start: 09-15-2023 End: 02-20-2024 Blood-Glucose Transmitter (D excom G6 Transmitter) device Discontinued 0 .Route 1 September 15, 2023 12:30pm February 20, 2024 1:36pm As directed Start: 09-15-2023 Blood-Glucose Transmitter (Dexcom G6 Transmitter) device Active 0 .Route September 15, 2023 12:30pm As directed Start: 06-02-2023 End: 09-15-2023 Blood-Glucose Transmitter (D excom G6 Transmitter) device Discontinued 0 .Route 1 June 02, 2023 8:34am September 15, 2023 12:30pm As directed Start: 06-02-2023 End: 09-15-2023 Blood-Glucose Transmitter (D excom G6 Transmitter) device Discontinued 0 .Route 1 June 02, 2023 8:34am September 15, 2023 12:30pm As directed Start: 02-20-2023 End: 06-02-2023 Blood-Glucose Transmitter (D excom G6 Transmitter) device Discontinued 0 .Route 1 February 20, 2023 2:16pm June 02, 2023 8:34am As directed Start: 02-20-2023 End: 06-02-2023 Blood-Glucose Transmitter (D excom G6 Transmitter) device Discontinued 0 .Route 1 February 20, 2023 2:16pm June 02, 2023 8:34am As directed Start: 07-06-2022 End: 02-20-2023 Blood-Glucose Transmitter (D excom G6 Transmitter) device Discontinued 0 .Route 1 July 06, 2022 11:01am February 20, 2023 2:16pm As directed Start: 07-06-2022 End: 02-20-2023 Blood-Glucose Transmitter (D excom G6 Transmitter) device Discontinued 0 .Route July 06, 2022 11:01am February 20, 2023 2:16pm As directed Start: 07-06-2022 Blood-Glucose Transmitter (Dexcom G6 Transmitter) device Active 0 .Route 1 July 06, 2022 11:01am As directed Start: 05-19-2022 End: 07-06-2022 Blood-Glucose Transmitter (D excom G6 Transmitter) device Discontinued 0 .Route 1 May 19, 2022 12:00am July 06, 2022 11:01am As directed Start: 05-19-2022 End: 07-06-2022 Blood-Glucose Transmitter (D excom G6 Transmitter) device Discontinued 0 .Route 1 May 19, 2022 12:00am July 06, 2022 11:01am As directed Blood-Glucose,Lead Consultant,Cont (Dexcom G6 Lead Consultant) misc (4 sources) Start: 07-13-2022 End: 02-20-2024 Blood-Glucose,Lead Consultant,Cont (Dexcom G6 Lead Consultant) misc Discontinued 0 .Route 1 0 July 13, 2022 1:00am February 20, 2024 1:36pm Diabetes mellitus Type 1 diabetes mellitus with hyperglycemia As directed Start: 07-13-2022 End: 02-20-2024 Blood-Glucose,Lead Consultant,Cont (Dexcom G6 Lead Consultant) misc Discontinued 0 .Route 1 July 13, 2022 1:00am February 20, 2024 1:36pm As directed calcium ascorbate 500 mg oral tablet (8 sources) Start: 05-24-2019 End: 11-27-2019 take 1 tablet by mouth once daily Ascorbate Calcium (Vitamin C) 500 mg tablet Discontinued 500 mg PO DAILY May 24, 2019 1:00am November 27, 2019 6:50am cbd gummy (6 sources) Start: 05-17-2022 End: 02-20-2023 cbd gummy Discontinued PO May 17, 2022 12:00am February 20, 2023 1:37pm at hs sleep Start: 05-17-2022 cbd gummy Acti ve PO May 17, 2022 12:00am at hs sleep cyclobenzaprine hydrochloride 10 mg oral tablet (8 sources) Muscle Relaxant Start: 11-27-2019 End: 12-16-2019 take 1 tablet by mouth three times daily as needed for muscle spasms Cyclobenzaprine 10 mg tablet Discontinued 10 mg PO THREE TIMES A DAY as needed for muscle spasm 20 0 November 27, 2019 12:00am December 16, 2019 11:06am desipramine hydrochloride 50 mg oral tablet (12 sources) Tricyclic Antidepressant Start: 11-01-2022 End: 02-20-2024 take 1 tablet by mouth at bedtime Desipramine 50 mg tablet Discontinued 50 mg PO AT BEDTIME 90 November 01, 2022 12:00am February 20, 2024 1:03pm Start: 05-17-2022 End: 11-01-2022 take 1 tablet by mouth at bedtime Desipramine 25 mg tablet Discontinued 25 mg PO AT BEDTIME 30 May 17, 2022 12:00am November 01, 2022 1:10pm desoximetasone 2.5 mg/ml topical cream (13 sources) Corticosteroid Start: 04-28-2014 End: 02-18-2019 Topicort 0.25 % External Cream 1 (one) Cream Cream bid for 0 days Quantity: 1 {Tube} Refills: 0 Ordered: 18-Feb-2019 Mignon Burgos RN Start : 28-Apr-2014 End : 18-Feb-2019 Inactive docusate sodium 100 mg oral capsule (8 sources) Start: 12-31-2019 End: 03-17-2020 take 1 capsule by mouth once daily Docusate Sodium (Colace) 100 mg capsule Discontinued 100 mg PO DAILY 14 December 31, 2019 12:00am March 17, 2020 11:03am famotidine 20 mg oral tablet (13 sources) Histamine-2 Receptor Antagonist Start: 04-28-2014 End: 06-27-2014 take 1 tablet by mouth twice daily PEPCID, 20MG (Oral Tablet) 1 (one) Tablet bid for 60 days Refills: 0 Ordered: 04-Jul-2014 Melyssa Dowd Start : 28-Apr-2014 End : 27-Jun-2014 Inactive ferrous sulfate 325 mg oral tablet (20 sources) Start: 04-01-2015 End: 02-18-2019 take 1 tablet by mouth twice daily Ferrous Sulfate 325 (65 Fe) MG Oral Tablet 1 (one) Tablet bid for 0 days Quantity: 60 {Tablet} Refills: 0 Ordered: 18-Feb-2019 Mignon Burgos RN Start : 01-Apr-2015 End : 18-Feb-2019 Inactive Start: 03-31-2015 End: 04-30-2015 take 1 tablet by mouth once daily IRON SUPPLEMENT, 325 (65 Fe)MG (Oral Tablet) 1 (one) Tablet Tablet daily for 30 days Quantity: 30 {Tablet} Refills: 0 Ordered: 14-May-2015 Melyssa Dowd Start : 31-Mar-2015 End : 30-Apr-2015 Inactive Flash Glucose Scanning Reade r (Freestyle Antonieta 14 Day [place]) misc (8 sources) Start: 07-16-2018 End: 11-27-2019 Flash Glucose Scanning Reade r (Freestyle Antonieta 14 Day [place]) misc Discontinued 0 .ROUTE .MEDSUPPLY 1 July 16, 2018 10:24am November 27, 2019 6:51am As directed with sensors to monitor glucose levels Start: 07-16-2018 End: 11-27-2019 Flash Glucose Scanning Reade r (Freestyle Antonieta 14 Day [place]) misc Discontinued 0 .ROUTE .MEDSUPPLY 1 0 July 16, 2018 1:00am November 27, 2019 6:51am As directed with sensors to monitor glucose levels Start: 07-16-2018 End: 11-27-2019 Flash Glucose Scanning Reade r (Freestyle Antonieta 14 Day [place]) misc Discontinued 0 .ROUTE .MEDSUPPLY 1 July 16, 2018 1:00am November 27, 2019 6:51am As directed with sensors to monitor glucose levels Flash Glucose Scanning Reade r (Freestyle Antonieta 2 [place]) misc (16 sources) Start: 02-08-2021 End: 11-01-2022 Flash Glucose Scanning Reade r (Freestyle Antonieta 2 [place]) misc Discontinued 0 .ROUTE .MEDSUPPLY 1 0 February 08, 2021 3:30pm November 01, 2022 1:27pm As directed Start: 02-08-2021 End: 11-01-2022 Flash Glucose Scanning Reade r (Freestyle Antonieta 2 [place]) misc Discontinued 0 .ROUTE .MEDSUPPLY February 08, 2021 3:30pm November 01, 2022 1:27pm As directed Start: 02-08-2021 Flash Glucose Scanning [place] (Freestyle Antonieta 2 [place]) misc Active 0 .ROUTE .MEDSUPPLY 1 February 08, 2021 3:30pm As directed Start: 02-08-2021 End: 02-08-2021 Flash Glucose Scanning Reade r (Freestyle Antonieta 2 [place]) misc Discontinued 0 .ROUTE .MEDSUPPLY 1 February 08, 2021 3:06pm February 08, 2021 3:30pm As directed Start: 02-08-2021 End: 02-08-2021 Flash Glucose Scanning Reade r (Freestyle Antonieta 2 [place]) misc Discontinued 0 .ROUTE .MEDSUPPLY 1 0 February 08, 2021 12:00am February 08, 2021 3:30pm As directed Start: 02-08-2021 End: 02-08-2021 Flash Glucose Scanning Reade r (Freestyle Antonieta 2 [place]) misc Discontinued 0 .ROUTE .MEDSUPPLY 1 February 08, 2021 12:00am February 08, 2021 3:30pm As directed Flash Glucose Sensor (Freest yle Antonieta 14 Day Sensor) kit (8 sources) Start: 06-14-2019 End: 11-27-2019 Flash Glucose Sensor (Freest yle Antonieta 14 Day Sensor) kit Discontinued 0 .ROUTE .MEDSUPPLY June 14, 2019 6:58pm November 27, 2019 6:51am As directed Start: 06-14-2019 End: 11-27-2019 Flash Glucose Sensor (Freest yle Antonieta 14 Day Sensor) kit Discontinued 0 .ROUTE .MEDSUPPLY 6 June 14, 2019 1:00am November 27, 2019 6:51am As directed Start: 06-14-2019 End: 11-27-2019 Flash Glucose Sensor (Freest yle Antonieta 14 Day Sensor) kit Discontinued 0 .ROUTE .MEDSUPPLY June 14, 2019 1:00am November 27, 2019 6:51am As directed Flash Glucose Sensor (Freest yle Antonieta 2 Sensor) kit (20 sources) Start: 01-31-2022 End: 11-01-2022 Flash Glucose Sensor (Freest yle Antonieta 2 Sensor) kit Discontinued 0 .ROUTE .MEDSUPPLY 2 January 31, 2022 10:11am November 01, 2022 1:26pm As directed Start: 01-31-2022 End: 11-01-2022 Flash Glucose Sensor (Freest yle Antonieta 2 Sensor) kit Discontinued 0 .ROUTE .MEDSUPPLY 2 January 31, 2022 10:11am November 01, 2022 1:26pm As directed Start: 07-11-2021 End: 01-31-2022 Flash Glucose Sensor (Freest yle Antonieta 2 Sensor) kit Discontinued 0 .ROUTE .MEDSUPPLY 2 July 11, 2021 9:52pm January 31, 2022 10:12am As directed Start: 07-11-2021 End: 01-31-2022 Flash Glucose Sensor (Freest yle Antonieta 2 Sensor) kit Discontinued 0 .ROUTE .MEDSUPPLY 2 July 11, 2021 9:52pm January 31, 2022 10:12am As directed Start: 07-11-2021 Flash Glucose Sensor (Freestyle Antonieta 2 Sensor) kit Active 0 .ROUTE .MEDSUPPLY 2 July 11, 2021 9:52pm As directed Start: 03-18-2021 End: 07-11-2021 Flash Glucose Sensor (Freest yle Antonieta 2 Sensor) kit Discontinued 0 .ROUTE .MEDSUPPLY 2 March 18, 2021 9:41am July 11, 2021 9:52pm As directed Start: 03-18-2021 End: 07-11-2021 Flash Glucose Sensor (Freest yle Antoni[place] 2 Sensor) kit Discontinued 0 .ROUTE .MEDSUPPLY 2 3 March 18, 2021 12:00am July 11, 2021 9:52pm As directed Start: 03-18-2021 End: 07-11-2021 Flash Glucose Sensor (Freest yle Antonieta 2 Sensor) kit Discontinued 0 .ROUTE .MEDSUPPLY March 18, 2021 12:00am July 11, 2021 9:52pm As directed Start: 02-08-2021 Flash Glucose Sensor (Freestyle Antonieta 2 Sensor) kit Active 0 EACH .ROUTE .MEDSUPPLY 1 February 08, 2021 2:41pm As directed Start: 02-08-2021 Flash Glucose Sensor (Freestyle Antonieta 2 Sensor) kit Active 0 NMA .ROUTE .MEDSUPPLY February 08, 2021 12:00am As directed Start: 02-08-2021 Flash Glucose Sensor (Freestyle Antonieta 2 Sensor) kit Active 0 EACH .ROUTE .MEDSUPPLY 1 February 08, 2021 12:00am As directed gabapentin 300 mg oral capsule (13 sources) Anti-epileptic Agent Start: 07-03-2013 End: 03-24-2015 take 1 capsule by mouth once daily at bedtime GABAPENTIN, 300MG (Oral Capsule) 1 Capsule qhs for 30 days Quantity: 30 {Capsule} Refills: 5 Ordered: 24-Mar-2015 Zeynep Waters LPN Start : 03-Jul-2013 End : 24-Mar-2015 Discontinued HumaLOG 100 UNIT/ML Subcutaneous Solution (1 source) Start: 02-18-2019 HumaLOG 100 UNIT/ML Subcutaneous Solution 1 Solution 11-20-12 for 30 days Refills: 0 Ordered: 18-Feb-2019 Cecy Alarcon DO, DO, Kathleen Start : 18-Feb-2019 Active 2 ml sodium hyaluronate 10 mg/ml prefilled syringe (6 sources) Start: 03-10-2021 End: 03-10-2021 Euflexxa (sodium hyaluronate (viscosup)) Discontinued 10 MG INTRAARTIC ONCE March 10, 2021 12:50pm March 10, 2021 1:01pm Start: 03-03-2021 End: 03-03-2021 Euflexxa (sodium hyaluronate (viscosup)) Discontinued 10 MG INTRAARTIC ONCE March 03, 2021 12:49pm March 03, 2021 1:19pm Start: 02-24-2021 End: 02-24-2021 Euflexxa (sodium hyaluronate (viscosup)) Discontinued 10 MG INTRAARTIC ONCE February 24, 2021 12:42pm February 24, 2021 1:35pm insulin aspart, human 100 unt/ml injectable solution (20 sources) Insulin Analog Start: 12-02-2023 End: 12-05-2023 insulin aspart U-100 (NOVOLOG) 100 unit/mL Start: 12-19-2022 End: 12-10-2024 Insulin Aspart U-100 (Novolo g U-100 Insulin Aspart) 100 unit/mL solution Discontinued 100 U SC DAILY 13 01February 02, 2024 9:13am December 10, 2024 1:42pm via insulin pump Start: 05-17-2022 End: 02-20-2023 inject 10-12 [IU] by subcutaneous injection three times daily in the morning, then inject 15 [IU] by subcutaneous injection three times daily at dinner Insulin Aspart U-100 (Novolog Flexpen U-100 Insulin) 100 unit/mL (3 mL) insulin pen Discontinued 0 SC THREE TIMES A DAY 15 June 27, 2022 2:11pm February 20, 2023 1:36pm Diabetes mellitus Type 1 diabetes mellitus with hyperglycemia 10-12 units in am and lunch , 15 units dinner subcutaneously three times a day; Start: 05-17-2022 End: 02-20-2023 inject 10-12 [IU] by subcutaneous injection three times daily in the morning, then inject 15 [IU] by subcutaneous injection three times daily at dinner Insulin Aspart U-100 (Novolog Flexpen U-100 Insulin) 100 unit/mL (3 mL) insulin pen Discontinued 0 SC THREE TIMES A DAY June 27, 2022 2:11pm February 20, 2023 1:36pm 10-12 units in am and lunch , 15 units dinner subcutaneously three times a day; Start: 02-10-2021 End: 05-17-2022 Insulin Aspart U-100 (Novolo g Flexpen U-100 Insulin) 100 unit/mL (3 mL) insulin pen Discontinued 20 U SC THREE TIMES A DAY 15 January 31, 2022 10:11am May 17, 2022 1:59pm Diabetes mellitus Type 1 diabetes mellitus with hyperglycemia 3 ml insulin degludec 100 unt/ml pen injector (20 sources) Insulin Analog Start: 03-17-2020 End: 02-24-2021 Insulin Degludec (Tresiba Flextouch U-100) 100 unit/mL (3 mL) insulin pen Discontinued 26 U SC DAILY March 17, 2020 11:03am February 24, 2021 10:05am diabetes Trecivo - Long-acting Start: 05-24-2019 End: 03-17-2020 Insulin Degludec (Tresiba Flextouch U-100) 100 unit/mL (3 mL) insulin pen Discontinued 22 U SC DAILY 15 January 20, 2020 1:37pm March 17, 2020 11:04am diabetes Start: 02-20-2019 inject 18 [IU] by armenta bcutaneous injection once daily Tresiba FlexTouch 100 UNIT/ML Subcutaneous Solution Pen-injector 18 Unit inject once daily for 0 days Quantity: 1 {Box} Refills: 3 Ordered: 20-Feb-2019 Torri Mistry CMA Start : 20-Feb-2019 Active Dispense as Written 3 ml insulin detemir 100 unt/ml pen injector (20 sources) Insulin Analogue Start: 07-30-2018 End: 05-24-2019 Insulin Detemir U-100 (Levemir Flextouch U-100 Insuln) 100 unit/mL (3 mL) insulin pen Discontinued 13 U SC TWICE A DAY 9 July 30, 2018 11:38am May 24, 2019 10:48am Type 1 diabetes mellitus without complications e10.9 Start: 06-26-2017 End: 07-30-2018 Insulin Detemir U-100 (Levem ir Flextouch U100 Insulin) 100 unit/mL (3 mL) insulin pen Discontinued 13 U SC THREE TIMES A DAY June 26, 2017 1:00am July 30, 2018 11:15am Start: 12-28-2016 LEVEMIR 100 UN IT/ML SOLN 13 units before meals INSULIN DETEMIR [id number] Shilpa Vega Start: 06-01-2016 End: 12-05-2023 inject 13 [IU] by subcutaneous injection in the morning, then inject 11 [IU] by subcutaneous injection in the evening LEVEMIR 100 unit/mL injection INJECT 13 UNITS SUBCUTANEOUSLY IN THE MORNING AND 11 UNITS IN THE EVENING 1 Vial 11 06/01/2016 12/05/2023 Discontinued Start: 04-20-2015 End: 09-27-2017 Insulin Detemir U-100 (Levem ir Flextouch U100 Insulin) 100 unit/mL (3 mL) insulin pen Discontinued 13 U SC TWICE A DAY June 26, 2017 1:00am September 27, 2017 12:03pm Type 1 diabetes mellitus without complications Start: 04-20-2015 End: 06-26-2017 Insulin Detemir U-100 100 UN ITS/ML insulin pen Discontinued 13 U SC TWICE A DAY April 20, 2015 12:00am June 26, 2017 10:17am Start: 03-24-2015 End: 02-20-2019 inject 13 [IU] by subcutaneous injection once at bedtime Levemir 100 UNIT/ML Subcutaneous Solution 13 units Solution q am qhs for 30 days Quantity: 1 {Vial} Refills: 3 Ordered: 20-Feb-2019 Torri Mistry CMA Start : 24-Mar-2015 End : 20-Feb-2019 Discontinued insulin glargine 100 unt/ml injectable solution (13 sources) Insulin Analog Start: 04-02-2013 End: 03-24-2015 LANTUS SOLOSTAR, 100UNIT/ML (Subcutaneous Solution Pen-injector) 1 Solution 25u for 30 days Quantity: 4 {pens} Refills: 5 Ordered: 24-Mar-2015 Zeynep Waters LPN Start : 02-Apr-2013 End : 24-Mar-2015 Discontinued 3 ml insulin isophane, human 100 unt/ml pen injector (14 sources) Start: 05-17-2022 End: 02-20-2023 Insulin Nph Isoph U-100 Human (Novolin N Flexpen) 100 unit/mL (3 mL) insulin pen Discontinued 0 SC . May 17, 2022 1:58pm February 20, 2023 1:36pm 6 untis in am , 15 units in rosaline subcutaneously; 6u am, 14u pm Start: 05-17-2022 End: 02-20-2023 Insulin Nph Isoph U-100 Astrid n (Novolin N Flexpen) 100 unit/mL (3 mL) insulin pen Discontinued 0 SC . May 17, 2022 1:58pm February 20, 2023 1:36pm 6 untis in am , 15 units in rosaline subcutaneously; 6u am, 14u pm Start: 11-30-2021 Insulin Nph Is oph U-100 Human (Novolin N Flexpen) 100 unit/mL (3 mL) insulin pen Active 20 UNIT SC EVERY MORNING November 30, 2021 1:59pm 8u am 17u pm Start: 11-30-2021 End: 05-17-2022 Insulin Nph Isoph U-100 Astrid n (Novolin N Flexpen) 100 unit/mL (3 mL) insulin pen Discontinued 20 U SC . November 30, 2021 12:00am May 17, 2022 1:59pm 6u am, 14u pm 3 ml insulin lispro 200 unt/ml pen injector (20 sources) Insulin Analogue Start: 07-02-2019 End: 02-10-2021 Insulin Lispro 200 unit/mL (3 mL) insulin pen Discontinued 15 U SC THREE TIMES A DAY 9 6 December 04, 2020 9:35am February 01, 2021 2:50pm sliding scale Start: 02-18-2019 HumaLOG 100 UN IT/ML Subcutaneous Solution 1 Solution 5-7-13 for 30 days Refills: 0 Ordered: 18-Feb-2019 Jarrell NO Cecysudhakar Alarcon DO Cecy Start : 18-Feb-2019 Active Start: 06-27-2017 End: 07-02-2019 Insulin Lispro (Humalog Kwik pen Insulin) 200 unit/mL (3 mL) insulin pen Discontinued 0 SC EVERY MORNING 3 11 July 16, 2018 2:10pm July 02, 2019 3:04pm Give 5u at breakfast, 7 u at lunch and 13u at supper SC administer within 15 minutes before meal Start: 06-26-2017 End: 06-27-2017 Insulin Lispro (Humalog Kwik pen Insulin) 100 unit/mL insulin pen Discontinued 5 U SC THREE TIMES A DAY June 26, 2017 1:00am June 27, 2017 6:58pm Type 1 diabetes mellitus without complications Start: 06-26-2017 End: 09-27-2017 Insulin Lispro (Humalog Kwik pen Insulin) 100 unit/mL insulin pen Discontinued 13 U SC daily June 26, 2017 1:00am September 27, 2017 12:03pm Start: 05-08-2017 HUMALOG 100 UN IT/ML SOLN inject up to 13 U sq tid INSULIN LISPRO [id number] Jenny Cooper STROKE COORDINATOR Start: 05-08-2017 HUMALOG KWIKPE N 100 UNIT/ML SOPN inject up to 13 unit daily INSULIN LISPRO [id number] Jenny Cooper STROKE COORDINATOR Start: 04-02-2013 End: 03-24-2015 HUMALOG, 100UNIT/ML (Subcuta neous Solution) 1 Solution 3-3-7 for 30 days Refills: 0 Ordered: 24-Mar-2015 Zeynep Waters LPN Start : 02-Apr-2013 End : 24-Mar-2015 Discontinued insulin needles, DISPOSABLE, (PEN NEEDLE) 31 X 5/16 ndle (2 sources) Start: 10-02-2014 End: 12-05-2023 insulin needles, DISPOSABLE, (PEN NEEDLE) 31 X 5/16 ndle 1 Each. 0 10/02/2014 12/05/2023 Discontinued Insulin Pump Cart,Auto,Bt-Cn tr (Omnipod 5 G6 Intro Kit (Gen 5)) cartridge (12 sources) Start: 11-01-2022 End: 08-04-2023 Insulin Pump Cart,Auto,Bt-Cn tr (Omnipod 5 G6 Intro Kit (Gen 5)) cartridge Discontinued 0 .Route 1 0 November 01, 2022 1:54pm August 04, 2023 11:32am As directed Start: 11-01-2022 End: 08-04-2023 Insulin Pump Cart,Auto,Bt-Cn tr (Omnipod 5 G6 Intro Kit (Gen 5)) cartridge Discontinued 0 .Route 1 November 01, 2022 1:54pm August 04, 2023 11:32am As directed Start: 11-01-2022 Insulin Pump C art,Auto,Bt-Cntr (Omnipod 5 G6 Intro Kit (Gen 5)) cartridge Active 0 .Route 1 November 01, 2022 1:54pm As directed Start: 05-19-2022 End: 11-01-2022 Insulin Pump Cart,Auto,Bt-Cn tr (Omnipod 5 G6 Intro Kit (Gen 5)) cartridge Discontinued 0 .Route 1 0 May 19, 2022 12:00am November 01, 2022 1:54pm As directed Start: 05-19-2022 End: 11-01-2022 Insulin Pump Cart,Auto,Bt-Cn tr (Omnipod 5 G6 Intro Kit (Gen 5)) cartridge Discontinued 0 .Route 1 May 19, 2022 12:00am November 01, 2022 1:54pm As directed Insulin Pump Cart,Automated, Bt (Omnipod 5 G6 Pods (Gen 5)) cartridge (20 sources) Start: 04-10-2024 End: 08-12-2024 Insulin Pump Cart,Automated, Bt (Omnipod 5 G6 Pods (Gen 5)) cartridge Discontinued 0 .Route 10 April 10, 2024 3:27pm August 12, 2024 3:08pm Change every 3 days Start: 04-10-2024 End: 08-12-2024 Insulin Pump Cart,Automated, Bt (Omnipod 5 G6 Pods (Gen 5)) cartridge Discontinued 0 .Route 10 April 10, 2024 3:27pm August 12, 2024 3:08pm Change every 3 days Start: 04-08-2024 End: 04-10-2024 Insulin Pump Cart,Automated, Bt (Omnipod 5 G6 Pods (Gen 5)) cartridge Discontinued 0 .Route 5 April 08, 2024 12:00am April 10, 2024 3:26pm Type 1 diabetes mellitus Type 1 diabetes mellitus with hyperglycemia As directed g6 or g7 compatible Start: 04-08-2024 End: 04-10-2024 Insulin Pump Cart,Automated, Bt (Omnipod 5 G6 Pods (Gen 5)) cartridge Discontinued 0 .Route 5 April 08, 2024 12:00am April 10, 2024 3:26pm As directed g6 or g7 compatible Start: 03-26-2024 End: 04-10-2024 Insulin Pump Cart,Automated, Bt (Omnipod 5 G6 Pods (Gen 5)) cartridge Discontinued 0 .Route 10 March 26, 2024 9:53am April 10, 2024 3:28pm Change every 3 days MUST BE COMPATIBLE WITH DEXCOM G7 Start: 03-26-2024 End: 04-10-2024 Insulin Pump Cart,Automated, Bt (Omnipod 5 G6 Pods (Gen 5)) cartridge Discontinued 0 .Route March 26, 2024 9:53am April 10, 2024 3:28pm Change every 3 days MUST BE COMPATIBLE WITH DEXCOM G7 Start: 03-20-2024 End: 03-26-2024 Insulin Pump Cart,Automated, Bt (Omnipod 5 G6 Pods (Gen 5)) cartridge Discontinued 0 .Route 10 March 20, 2024 5:23pm March 26, 2024 9:53am As directed. MUST BE COMPATIBLE WITH DEXCOM G7 Start: 03-20-2024 End: 03-26-2024 Insulin Pump Cart,Automated, Bt (Omnipod 5 G6 Pods (Gen 5)) cartridge Discontinued 0 .Route 10 March 20, 2024 5:23pm March 26, 2024 9:53am As directed. MUST BE COMPATIBLE WITH DEXCOM G7 Start: 03-07-2024 End: 03-20-2024 Insulin Pump Cart,Automated, Bt (Omnipod 5 G6 Pods (Gen 5)) cartridge Discontinued 0 .Route 10 March 07, 2024 7:36am March 20, 2024 5:24pm As directed Start: 03-07-2024 End: 03-20-2024 Insulin Pump Cart,Automated, Bt (Omnipod 5 G6 Pods (Gen 5)) cartridge Discontinued 0 .Route 10 March 07 2024 7:36am March 20, 2024 5:24pm As directed Start: 08-04-2023 End: 03-07-2024 Insulin Pump Cart,Automated, Bt (Omnipod 5 G6 Pods (Gen 5)) cartridge Discontinued 0 .Route 10 August 04, 2023 11:32am March 07, 2024 7:36am As directed Start: 08-04-2023 End: 03-07-2024 Insulin Pump Cart,Automated, Bt (Omnipod 5 G6 Pods (Gen 5)) cartridge Discontinued 0 .Route August 04, 2023 11:32am March 07, 2024 7:36am As directed Start: 08-04-2023 Insulin Pump C art,Automated,Bt (Omnipod 5 G6 Pods (Gen 5)) cartridge Active 0 .Route August 04, 2023 11:32am As directed Start: 11-15-2022 End: 08-04-2023 Insulin Pump Cart,Automated, Bt (Omnipod 5 G6 Pods (Gen 5)) cartridge Discontinued 0 .Route 10 November 15, 2022 12:00am August 04, 2023 11:32am As directed Start: 11-15-2022 End: 08-04-2023 Insulin Pump Cart,Automated, Bt (Omnipod 5 G6 Pods (Gen 5)) cartridge Discontinued 0 .Route November 15, 2022 12:00am August 04, 2023 11:32am As directed Start: 11-15-2022 Insulin Pump C art,Automated,Bt (Omnipod 5 G6 Pods (Gen 5)) cartridge Active 0 .Route November 15, 2022 12:00am As directed insulin, glulisine, human 100 unt/ml injectable solution (20 sources) Insulin Analogue Start: 12-28-2016 APIDRA 100 UN IT/ML SOLN up to 13 units 3 times daily INSULIN GLULISINE [id number] Jenny Cooper NP Start: 04-20-2015 End: 12-05-2023 inject 5 [IU] by subcutaneous injection twice daily Insulin Glulisine U-100 100 UNIT/ML solution Discontinued 5 U SQ TWICE A DAY April 20, 2015 12:00am June 26, 2017 10:16am Start: 04-20-2015 End: 06-26-2017 Insulin Glulisine U-100 100 UNIT/ML solution Discontinued 11 U SQ WITH DINNER April 20, 2015 12:00am June 26, 2017 10:16am Start: 03-24-2015 End: 04-23-2015 APIDRA, 100UNIT/ML (Injectio n Solution) 5 units q am and lunch, and 11 Solution at dinner for 30 days Quantity: 1 {Vial} Refills: 0 Ordered: 14-May-2015 Melyssa Dowd Start : 24-Mar-2015 End : 23-Apr-2015 Inactive lactobacillus (2 sources) Start: 12-28-2016 take 1 tablet by mouth once daily ACIDOPHILUS PROBIOTIC TABS One tablet by mouth daily LACTOBACILLUS TABS [id number] Shilpa Vega lactobacillus acidophilus [id number] unt / pectin 10 mg oral capsule (8 sources) Start: 06-26-2017 End: 09-27-2017 take 1 capsule by mouth once daily Acidophilus-Pectin, Kings (Acidophilus Probiotic) 100 million cell-10 mg capsule Discontinued 1 NMA PO .qd 0 June 26, 2017 1:00am September 27, 2017 12:03pm levothyroxine sodium 0.075 mg oral tablet (20 sources) l-Thyroxi ne Start: 06-10-2019 End: 12-10-2024 take 1 tablet by mouth once daily Levothyroxine 75 mcg tablet Discontinued 75 ug PO DAILY 90 2 April 23, 2024 4:54pm December 10, 2024 1:43pm thyroid take 1 tablet by mouth once migdalia y Levothyroxine Sodium 25 MCG Oral Tablet 1 daily (25 MCG) Active Comments: , pt unsure of dosage Comment on above: , pt unsure o f dosage lisinopril 20 mg oral tablet (20 sources) Angiotensin Converting Enzyme Inhibitor Start: 7 End: 4 take 1 tablet by mouth once daily Lisinopril 20 mg tablet Discontinued 20 mg PO daily 90 3 January 30, 2024 10:44am April 15, 2024 3:46pm kidneys Start: 12-28-2016 take 1 tablet by berenice th once daily LISINOPRIL 20 MG TABS One tablet by mouth daily LISINOPRIL [id number] Jenny Mike Cooper NP Start: 03-28-2014 End: 09-27-2017 take 1 tablet by mouth once daily Lisinopril 5 MG tablet Discontinued 5 mg PO DAILY April 20, 2015 12:00am September 27, 2017 12:04pm loratadine 10 mg oral tablet (20 sources) Start: 12-20-2019 End: 07-23-2024 take 1 tablet by mouth once daily Loratadine 10 MG tablet Discontinued 10 mg PO DAILY December 20, 2019 12:00am July 23, 2024 2:03pm allergies Start: 06-26-2017 End: 11-27-2019 take 1 tablet by mouth once daily Loratadine (Claritin) 10 mg tablet Discontinued 10 mg PO daily June 26, 2017 1:00am September 27, 2017 12:04pm Start: 12-28-2016 take 1 tablet by berenice th once daily CLARITIN 10 MG TABS One tablet by mouth daily LORATADINE [id number] Shilpa Vega Start: 04-28-2014 End: 03-24-2015 take 1 capsule by mouth once daily at bedtime CLARITIN, 10MG (Oral Capsule) 1 (one) Capsule qhs for 0 days Quantity: 30 {Capsule} Refills: 0 Ordered: 24-Mar-2015 Zeynep Waters LPN Start : 28-Apr-2014 End : 24-Mar-2015 Discontinued take 1 tablet by berenice th once daily Claritin 5 MG Oral Tablet Chewable 1 daily (5 MG) Active MULTIPLE VITAMINS-MINERALS (2 sources) Start: 12-28-2016 take 1 tablet by mouth once daily DAILY MULTIVITAMIN CAPS One tablet by mouth daily MULTIPLE VITAMINS-MINERALS [id number] Shilpa Vega multivitamin capsule (8 sources) Start: 06-26-2017 End: 09-27-2017 take 1 capsule by mouth once daily in the morning multivitamin capsule Discontinued 1 CAP PO EVERY MORNING June 26, 2017 12:57pm September 27, 2017 12:04pm Start: 06-26-2017 End: 11-27-2019 take 1 capsule by mouth once daily in the morning multivitamin capsule Discontinued 1 CAP PO EVERY MORNING June 26, 2017 10:19am November 27, 2019 6:51am Start: 06-26-2017 End: 09-27-2017 take 1 capsule by mouth once daily in the morning multivitamin capsule Discontinued 1 CAP PO EVERY MORNING June 26, 2017 1:00am September 27, 2017 12:04pm Start: 06-26-2017 End: 11-27-2019 take 1 capsule by mouth once daily in the morning multivitamin capsule Discontinued 1 CAP PO EVERY MORNING June 26, 2017 1:00am November 27, 2019 6:51am Multivitamin capsule (8 sources) Start: 06-26-2017 End: 09-27-2017 Multivitamin capsule Discont inued 1 NMA PO EVERY MORNING June 26, 2017 1:00am September 27, 2017 12:04pm Start: 06-26-2017 End: 11-27-2019 Multivitamin capsule Discont inued 1 NMA PO EVERY MORNING June 26, 2017 1:00am November 27, 2019 6:51am MULTIVITAMINS (Oral Capsule) (13 sources) Start: 04-02-2013 take 1 capsule by mouth once daily MULTIVITAMINS (Oral Capsule) 1 Capsule qd for 30 days Refills: 0 Ordered: 02-Apr-2013 Cecy Alarcon DO, DO, Kathleen Start : 02-Apr-2013 Active omega-3 acid ethyl esters (longterm) 1000 mg oral capsule (13 sources) Start: 04-23-2013 End: 07-03-2013 take 4 capsules by mouth once daily LOVAZA, 1GM (Oral Capsule) 4 Capsule qd for 30 days Quantity: 360 {Capsule} Refills: 5 Ordered: 03-Jul-2013 Mignon Burgos RN Start : 23-Apr-2013 End : 03-Jul-2013 Inactive ondansetron 8 mg oral tablet (8 sources) Serotonin-3 Receptor Antagonist Start: 11-04-2020 End: 02-01-2021 take 1 tablet by mouth every eight hours as needed for nausea Ondansetron Hcl 8 MG tablet Discontinued 8 mg PO EVERY 8 HOURS NEEDED as needed for Nausea 20 0 November 04, 2020 12:00am February 01, 2021 2:50pm pensaid (6 sources) Start: 05-17-2022 End: 02-20-2023 pensaid Discontinued TOPICAL May 17, 2022 12:00am February 20, 2023 1:36pm Start: 05-17-2022 pensaid Active TOPICAL May 17, 2022 12:00am progesterone 100 mg oral capsule (20 sources) Progesterone Start: 06-26-2017 End: 09-27-2017 take 1 capsule by mouth once daily in the morning Progesterone Micronized (Prometrium) 100 mg capsule Discontinued 100 mg PO EVERY MORNING June 26, 2017 1:00am September 27, 2017 12:04pm Start: 12-28-2016 take 1 tablet by berenice once daily PROMETRIUM 100 MG CAPS One tablet by mouth daily PROGESTERONE MICRONIZED [id number] Shilpa A Vega End: 12-05-2023 take 1 capsule by mouth three times daily progesterone micronized (PROMETRIUM) 100 mg capsule Take 100 mg by mouth three times daily. 0 12/05/2023 Discontinued SYMLINPEN 60, 1500MCG/1.5ML (Subcutaneous Solution Pen-injector) (13 sources) Start: 04-02-2013 End: 03-24-2015 SYMLINPEN 60, 1500MCG/1.5ML (Subcutaneous Solution Pen-injector) 1 Solution tid for 30 days Quantity: 4 {pen} Refills: 5 Ordered: 24-Mar-2015 SlaZeynep mari LPN Start : 02-Apr-2013 End : 24-Mar-2015 Discontinued triamcinolone acetonide 40 mg/ml injectable suspension (2 sources) Corticosteroid Start: 04-28-2020 End: 04-28-2020 Kenalog (triamcinolone acetonide) 40 mg/mL suspension for injection Discontinued 40 MG INTRAARTIC ONCE 1 April 28, 2020 1:47pm April 28, 2020 2:36pm Problems Active Problems Problem Classification Problem Date Documented Da te Episodic/Chronic Allergic reactions (20 sources) Contact dermatitis; Translations: [Contact dermatitis] 04-01-2015 Episodic Blindness and vision defects (5 sources) Hyperopia of right eye; Translations: [Hypermetropia, right eye] 09-07-2023 Episodic Deficiency and other anemia (20 sources) Anemia; Translations: [Anemia] 04-01-2015 Episodic Diabetes mellitus with complications (20 sources) Diabetes with neurological manifestations, type I [juvenile type], not stated as uncontrolled; Translations: [Diabetes mellitus type 1 with neurological manifestations] Onset: 12-10-2024 04-01-2015 Chronic Comment on above: pt states not taking rajwinder anylonger for neuropathy and hasnt had any problems-- so went away?? pt states not taking rajwinder anylonger for neuropathy and hasnt had any problems-- so went away??sees Dr Lubin Diabetes mellitus without complication (20 sources) Type 1 diabetes mellitus without complications; Translations: [Type 1 diabetes mellitus] Onset: 09-23-2014 12-28-2016 Chronic Diabetes mellitus without complication (9 sources) Insulin pump present; Translations: [Presence of insulin pump (external) (internal)] 02-28-2023 Episodic Diseases of white blood cells (15 sources) Leukocytosis; Translations: [Elevated WBC count] 04-01-2015 Chronic Comment on above: 11.8 on 03-24 , will s end repeat UA and culture, if still pos, will add additional lab. Workup in process with Dr. Chris for vaginal bleed Disorders of lipid metabolism (20 sources) Hyperlipidemia; Translations: [Hyperlipidemia] 04-21-2015 Chronic Comment on above: uncntrolled E Codes: Natural/environment (1 source) Repetitive motion disorder; Translations: [Overexertion from repetitive movements, initial encounter] 12-05-2023 Episodic Essential hypertension (20 sources) Benign essential hypertension; Translations: [Benign essential HTN] Onset: 10-22-2024 06-26-2015 Chronic Immunizations and screening for infectious disease (20 sources) Need for prophylactic vaccination and inoculation against influenza; Translations: [Needs influenza immunization] 11-22-2019 Episodic Malaise and fatigue (20 sources) Fatigue; Translations: [FATIGUE] Resolved: 02-18-2019 04-01-2015 Episodic Menstrual disorders (8 sources) Irregular periods; Translations: [Irregular menstruation, unspecified] 11-14-2018 Chronic Nutritional deficiencies (4 sources) Vitamin D deficiency; Translations: [Vitamin D deficiency, unspecified] 04-22-2024 Chronic Osteoarthritis (9 sources) Osteoarthritis of right knee joint; Translations: [Unilateral primary osteoarthritis, right knee] Onset: 04-15-2024 02-24-2021 Chronic Other aftercare (8 sources) Follow-up status; Translations: [Encounter for other orthopedic aftercare] 12-08-2020 Episodic Other and unspecified benign neoplasm (7 sources) History of polyp of colon; Translations: [Personal history of colonic polyps] 12-21-2021 Episodic Other and unspecified benign neoplasm (1 source) Personal history of colonic polyps; Translations: [Personal history of colonic polyps] Episodic Other connective tissue disease (1 source) Pain in right foot; Translations: [Pain in right foot] 12-05-2023 Episodic Other connective tissue disease (1 source) Pain in right foot; Translations: [Pain in right foot] Onset: 12-05-2023 Episodic Other female genital disorders (9 sources) Vaginal bleeding; Translations: [Vaginal bleeding] 11-22-2019 Chronic Other female genital disorders (20 sources) Vaginal bleeding; Translations: [Vaginal bleeding] 04-01-2015 Episodic Other female genital disorders (8 sources) Polyp of corpus uteri; Translations: [Polyp of corpus uteri] 11-14-2018 Episodic Other gastrointestinal disorders (8 sources) Difficulty swallowing solids; Translations: [Dysphagia, unspecified] 11-14-2018 Episodic Other nervous system disorders (3 sources) Carpal tunnel syndrome of left wrist; Translations: [Carpal tunnel syndrome, left upper limb] 01-15-2025 Chronic Other nervous system disorders (2 sources) Carpal tunnel syndrome, left upper limb; Translations: [Carpal tunnel syndrome, left upper limb] Onset: 02-10-2025 Chronic Other nervous system disorders (8 sources) Paresthesia; Translations: [Paresthesia of skin] 11-30-2021 Episodic Other non-traumatic joint disorders (16 sources) Knee pain; Translations: [Pain in right knee] 11-22-2019 Episodic Other non-traumatic joint disorders (1 source) Pain in right knee; Translations: [Knee pain, right] 11-22-2019 Episodic Other nutritional; endocrine; and metabolic disorders (17 sources) Cholesterol level - finding; Translations: [Low HDL (under 40)] 06-01-2015 Chronic Comment on above: increase exeercise Other nutritional; endocrine; and metabolic disorders (11 sources) Body mass index 25-29 - overweight; Translations: [BMI 25.0-25.9,adult] 02-18-2019 Chronic Other nutritional; endocrine; and metabolic disorders (5 sources) Hypercalcemia; Translations: [Hypercalcemia] 02-20-2023 Chronic Other nutritional; endocrine; and metabolic disorders (8 sources) H/O: diabetes mellitus; Translations: [Diabetes Mellitus, Type I] 04-01-2015 Episodic Other nutritional; endocrine; and metabolic disorders (18 sources) Body mass index 25-29 - overweight; Translations: [BMI 25.0-25.9,adult] 11-22-2019 Episodic Other nutritional; endocrine; and metabolic disorders (2 sources) Overweight; Translations: [Overweight] 11-01-2022 Episodic Other nutritional; endocrine; and metabolic disorders (5 sources) Overweight in adulthood with body mass index of 25 or more but less than 30; Translations: [BMI 25.0-25.9,adult] 11-22-2019 Episodic Other and delivery including normal (13 sources) History of past delivery; Translations: [Vaginal delivery] 04-01-2015 Episodic Comment on above: 1990 Other upper respiratory disease (2 sources) Seasonal allergy; Translations: [Other seasonal allergic rhinitis] Onset: 12-28-2016 12-28-2016 Chronic Residual codes; unclassified (20 sources) Needs influenza immunization; Translations: [Need for prophylactic vaccination and inoculation against influenza] 04-21-2015 Episodic Residual codes; unclassified (10 sources) H/O: section; Translations: [ Section] 04-01-2015 Episodic Comment on above: 2003 Residual codes; unclassified (9 sources) Non-smoker; Translations: [Non-smoker] 11-22-2019 Episodic Thyroid disorders (20 sources) Hypothyroidism; Translations: [Nontoxic diffuse goiter] Onset: 07-27-2016 Resolved: 01-02-2017 01-02-2017 Chronic Comment on above: last us 07/04 size 9 .9cm Unclassified (20 sources) Low HDL (272.5) Unclassified (20 sources) Benign essential HTN (401.1) Unclassified (20 sources) Unclassified (20 sources) Encounter for screening mammogram for breast cancer (Renamed from Encounter for screening mammogram for malignant neoplasm of breast); Translations: [Patient encounter status] 02-18-2019 Unclassified (20 sources) Non-smoker; Translations: [Non-smoker] 02-18-2019 Unclassified (13 sources) Benign essential HTN Unclassified (10 sources) BMI 25.0-25.9,adult Unclassified (6 sources) BMI 27.0-27.9,adult Unclassified (3 sources) Knee pain, right Unclassified (8 sources) Endometrial thickening on ultra sound 11-14-2018 Past or Other Problems Problem Classification Problem Date Documented Da te Episodic/Chronic Cystic fibrosis (13 sources) Cystic fibrosis Diabetes mellitus without complication (20 sources) Diabetes mellitus without complication Nonmalignant breast conditions (2 sources) Breast lump; Translations: [Unspecified lump in breast] 12-28-2016 Episodic Nutritional deficiencies (1 source) Deficiency of other specified B group vitamins; Translations: [Deficiency of other specified B group vitamins] Onset: 08-05-2024 Episodic Other non-traumatic joint disorders (5 sources) Pain in right knee; Translations: [Knee pain, right] Onset: 04-15-2024 11-22-2019 Episodic Other non-traumatic joint disorders (4 sources) Pain in right knee; Translations: [Knee pain, right] 11-22-2019 Other screening for suspected conditions (not mental disorders or infectious disease) (20 sources) Patient encounter status; Translations: [Encounter for screening mammogram for breast cancer (Renamed from Encounter for screening mammogram for malignant neoplasm of breast)] Onset: 06-10-2024 11-22-2019 Episodic Unclassified (20 sources) Unspecified Diagnosis 04-01-2015 Unclassified (11 sources) Elevated WBC count Unclassified (13 sources) Pregnancies (); Translations: [Pregnancies ()] 04-01-2015 Comment on above: 2. Results Test Name Value Interpretation Reference Range Facility Orthopedic Visit Reporton Orthopedic Visit Report [facility] [address] [place] [address] OFFICE VISIT Date of Service: 02/12/25 MR#: [id number] Acct: [id number] Name: NOHELIACIRILO ANN Rep #: [id number] : 1965 Provider: Dr. Savage parker DO Age/Sex: 60/F Location: [facility] [place] Status: Signed Intake Vital Signs 01/15/25 15:00 02/12/25 13:48 Height 5 ft 2 in 5 ft 2 in Weight: 160 lb 160 lb BMI 29.2 29.2 Intake Visit Reasons: LEFT HAND Chief Complaint: EMG review Accompanied by: Self Is patient in pain?: No Allergies No Known Allergies Allergy (Verified 02/12/25 13:52) Medications ???Medication ???Instructions ???Recorded ???Confirmed ???Type flash glucose sensor #1 ea 02/08/21 02/12/25 History cholecalciferol (vitamin D3) 125 125 mcg PO DAILY 02/20/24 02/12/25 History mcg (5,000 unit) capsule propranolol 20 mg tablet 20 mg PO BID PRN 02/20/24 02/12/25 History sertraline 50 mg tablet 50 mg PO QDAY 02/20/24 02/12/25 Hi story amlodipine 5 mg tablet 5 mg PO QDAY 04/15/24 02/12/25 His tory celecoxib 100 mg capsule (Celebrex) 100 mg PO BID #60 caps 04/15/24 02/12/25 Rx atorvastatin 20 mg tablet 20 mg PO QDAY #90 tabs 06/17/24 Rx blood-glucose sensor (Dexcom G7 #3 ea 08/27/24 02/12/25 Rx Sensor device) insulin aspart U-100 100 unit/mL 100 unit subcut DAILY #30 mL 12/1002/12/25 Rx subcutaneous solution (Novolog U-100 Insulin aspart) insulin pump cart,auto,BT,G6/7 #12 ea 12/10/24 02/12/25 Rx (Omnipod 5 G6-G7 Pods (Gen 5) subcutaneous cartridge) levothyroxine 75 mcg tablet 75 mcg PO DAILY thyroid #90 tabs 0 12/10/24 02/12/25 Rx Have you fallen in the past year?: No PFSH Medical History Insulin pump titration Presence of insulin pump Hypercalcemia Diabetes mellitus type 1 PONV (postoperative nausea and vomiting) Postmenopausal Wears glasses Arthritis Easy bruising Dietary restriction Non-smoker Paresthesia Knee pain HTN (hypertension) Thyroid nodule Hyperlipidemia Hypothyroidism Diabetes type 1, controlled Surgical History History of arthroscopic knee surgery H/O colonoscopy History of History of lumpectomy of right breast History of carpal tunnel release of both wrists Family History Mother Diabetes Bleeding disorder High cholesterol Cancer Heart disease Hypertension Melanoma Father Alcoholism Sister Colon cancer Diabetes Brother Diabetes Social History Smoking Status: Never smoker second hand exposure: No alcohol intake: current substance use type: does not use HPI LEFT HAND Details: This documentation accurately reflects the service provided and the decisions made by me, Dr. Savage Sanchez, DO 02/12/25 0924. Part of today???s visit was documented by Tonie Bullard MA, acting as scribe. CIRILO CEBALLOS is a 60 year old F here today for left hand EMG review. Patient would like to go over the EMG rescults to discuss what the next step would be. She states that she is not having any pain in her left hand, she is only having numbness. Patient is having numbness in the finger tips only in the left hand. She is able to grab and hold onto things. Patient states sometime at night she will get extreme numbness in the finger tips, and then the finger tips will start to burn. When that burning pain come on at night her pain is about a 10. The extreme numbness and burning in the fingertips does wake her up at night. When she gets up in the morning she will move her fingers around and the burning pain will go away, but the numbness will still be there. Patient tried night bracing for about 6 months with no relief. 01/15/2025 visit: 59 year old F here today for left hand. She is having complaints of numbness tingling and burning in her radial 3 digits. She notes that it wakes her up from night is so painful at times she does not want to move the digits. She has tried wearing a brace for 3 months without any relief. She denies any injections or physical therapy. Patient notes that she is right hand dominant. She denies any cervical spine pain, but on occasion gets a burning pain in her neck not often. She denies dropping items. She does admit to some retrograde symptoms to her elbow but not past this. Patient does have diabetes, but denies any blood thinners. Patient denies any smoking or drug use. Plan:Spoke with the patient about her symptoms likely from carpal tunnel syndrome. Patient should have an EMG/NCS to evaluate for carpal tunnel syndrome. Spoke with her about her options depe (more content not included)... Normal [facility] NCS and/or EMG Patienton NCS and/or EMG Patient [facility]/Neurology [address] [place] [address] MR#: [id number] Acct: [id number] Name: CIRILO CEBALLOS Rep #: [id number] : 1965 59 From: Quang Martines MD Referring Dr: Savage Sanchez DO Status: REG CLI Location: PSN Date: 02/04/25 Sex: F C NCS and/or EMG Patient Report Ordering Doctor: Savage Sanchez DATE OF SERVICE: 02/04/25 Clinical Summary: 59 year old female patient with symptoms of numbness and tingling in the left hand. Nerve Conduction Studies Summary: Nerve conduction studies were performed in the left hand. The left median-D2 SNAP distal latency was prolonged with reduced amplitude. The left median-APB CMAP distal latency was prolonged with reduced amplitude. The left median motor conduction velocity was reduced in the forearm segment. Needle Examination Summary: Needle examination of select muscles of the left upper extremity demonstrated a higher proportion of motor unit action potentials with reduced recruitment, increased amplitude, increased duration, and polyphasia in the left abductor pollicis brevis muscle. Impression: This is an abnormal study. 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 Quang Martines MD; Dr. Savage Sanchez DO Date Dictated: 02/04/25 0950 Date Transcribed: 02/04/25 0950 Supervisor Die Casting: Signed Normal [facility] Orthopedic Visit Reporton Orthopedic Visit Report [facility] [facility] [address] [place] [address] OFFICE VISIT Date of Service: 01/15/25 MR#: [id number] Acct: [id number] Name: CIRILO CEBALLOS Rep #: [id number] : 1965 Provider: Dr. Savage parker, DO Age/Sex: 59/F Location: [facility] [place] Status: Signed Intake Vital Signs 12/10/24 12:58 01/15/25 15:00 Height 5 ft 2 in 5 ft 2 in Weight: 163 lb 6 oz 160 lb BMI 29.9 29.2 BP 128/81 H Blood Pressure Location Lt brachial Position Sitting Pulse 65 Pulse Source Monitor Pulse Oximetry (%) 95 Oxygen Delivery Method room air Intake Visit Reasons: LEFT HAND Chief Complaint: Left hand pain Accompanied by: Self Is patient in pain?: Yes Pain scale (1-10): 3 Allergies No Known Allergies Allergy (Verified 01/15/25 15:02) Medications ???Medication ???Instructions ???Recorded ???Confirmed ???Type flash glucose sensor #1 ea 02/08/21 01/15/25 History cholecalciferol (vitamin D3) 125 125 mcg PO DAILY 02/20/24 01/15/25 History mcg (5,000 unit) capsule propranolol 20 mg tablet 20 mg PO BID PRN 02/20/24 01/15/25 History sertraline 50 mg tablet 50 mg PO QDAY 02/20/24 01/15/25 Hi story amlodipine 5 mg tablet 5 mg PO QDAY 04/15/24 01/15/25 His tory celecoxib 100 mg capsule (Celebrex) 100 mg PO BID #60 caps 04/15/24 01/15/25 Rx atorvastatin 20 mg tablet 20 mg PO QDAY #90 tabs 06/17/24 Rx blood-glucose sensor (Dexcom G7 #3 ea 08/27/24 01/15/25 Rx Sensor device) insulin aspart U-100 100 unit/mL 100 unit subcut DAILY #30 mL 12/1001/15/25 Rx subcutaneous solution (Novolog U-100 Insulin aspart) insulin pump cart,auto,BT,G6/7 #12 ea 12/10/24 01/15/25 Rx (Omnipod 5 G6-G7 Pods (Gen 5) subcutaneous cartridge) levothyroxine 75 mcg tablet 75 mcg PO DAILY thyroid #90 tabs 0 12/10/24 01/15/25 Rx Have you fallen in the past year?: No PFSH Medical History Insulin pump titration Presence of insulin pump Hypercalcemia Diabetes mellitus type 1 PONV (postoperative nausea and vomiting) Postmenopausal Wears glasses Arthritis Easy bruising Dietary restriction Non-smoker Paresthesia Knee pain HTN (hypertension) Thyroid nodule Hyperlipidemia Hypothyroidism Diabetes type 1, controlled Surgical History History of arthroscopic knee surgery H/O colonoscopy History of History of lumpectomy of right breast History of carpal tunnel release of both wrists Family History Mother Diabetes Bleeding disorder High cholesterol Cancer Heart disease Hypertension Melanoma Father Alcoholism Sister Colon cancer Diabetes Brother Diabetes Social History Smoking Status: Never smoker second hand exposure: No alcohol intake: current substance use type: does not use HPI LEFT HAND Details: This documentation accurately reflects the service provided and the decisions made by me, Dr. Savage Sanchez, DO 01/15/25 1500. Part of today???s visit was documented by Tonie Bullard MA, acting as scribe. CIRILO CEBALLOS is a 59 year old F here today for left hand. She is having complaints of numbness tingling and burning in her radial 3 digits. She notes that it wakes her up from night is so painful at times she does not want to move the digits. She has tried wearing a brace for 3 months without any relief. She denies any injections or physical therapy. Patient notes that she is right hand dominant. She denies any cervical spine pain, but on occasion gets a burning pain in her neck not often. She denies dropping items. She does admit to some retrograde symptoms to her elbow but not past this. Patient does have diabetes, but denies any blood thinners. Patient denies any smoking or drug use. Ortho Exam General General: Yes no acute distress Neurologic: Yes alert and Yes oriented x3 Psychologic: Yes reasonable and appropriate Right Wrist/Hand Skin/Wound: No Swelling and No Ecchymosis Left Wrist/Hand Skin/Wound: Yes CDI, No Swelling, No Ecchymosis, Yes nail intact, Yes capillary refill normal and No erythema Left Wrist: Yes ROM-Extension 0-60, Yes ROM-Flexion 0-80, Yes ROM-Pronation 0-80, Yes ROM-Supination 0-90, Yes Durken's Test and Yes Phalen's WRIST: full flexion, extension, supination and pronation of wrist. good strength of hand and abduction of fingers. cap refill normal She has symptoms at baseline. Mildly decreased cervical extension otherwise full range of motion negative Spurling's Spine Details: good cervical spine ROM. negative spurlings SPINE TESTING CERVI (more content not included)... Normal [facility] Endocrinology Visit Reporton 12-10-2024 Endocrinology Visit Report [facility] [address] [place] [address] OFFICE VISIT Date of Service: 12/10/24 MR#: [id number] Acct: [id number] Name: CIRILO CEBALLOS TERRIE Rep #: [id number] : 1965 Provider: Treessa Duron Age/Sex: 59/F Location: [facility] [place] Status: Signed Intake Vital Signs 07/23/24 13:03 12/10/24 12:58 Height 5 ft 2 in 5 ft 2 in Weight: 161 lb 6 oz 163 lb 6 oz BMI 29.5 29.9 BP 117/73 128/81 H Blood Pressure Location Lt brachial Lt brachial Position Sitting Sitting Respiration 16 Pulse 58 L 65 Pulse Source Monitor Monitor Temp 97.7 F L Temp Source Temporal Pulse Oximetry (%) 96 95 Oxygen Delivery Method room air room air Intake Visit Reasons: 4 M FU Chief Complaint: 4 M FU Is patient in pain?: No Allergies No Known Allergies Allergy (Verified 12/10/24 13:03) Medications ???Medication ???Instructions ???Recorded ???Confirmed ???Type flash glucose sensor #1 ea 02/08/21 12/10/24 History cholecalciferol (vitamin D3) 125 125 mcg PO DAILY 02/20/24 12/10/24 History mcg (5,000 unit) capsule propranolol 20 mg tablet 20 mg PO BID PRN 02/20/24 12/10/24 History sertraline 50 mg tablet 50 mg PO QDAY 02/20/24 12/10/24 Hi story amlodipine 5 mg tablet 5 mg PO QDAY 04/15/24 12/10/24 His tory celecoxib 100 mg capsule (Celebrex) 100 mg PO BID #60 caps 04/15/24 12/10/24 Rx atorvastatin 20 mg tablet 20 mg PO QDAY #90 tabs 06/17/24 Rx blood-glucose sensor (Dexcom G7 #3 ea 08/27/24 12/10/24 Rx Sensor device) insulin aspart U-100 100 unit/mL 100 unit subcut DAILY #30 mL 12/1012/10/24 Rx subcutaneous solution (Novolog U-100 Insulin aspart) insulin pump cart,auto,BT,G6/7 #12 ea 12/10/24 12/10/24 Rx (Omnipod 5 G6-G7 Pods (Gen 5) subcutaneous cartridge) levothyroxine 75 mcg tablet 75 mcg PO DAILY thyroid #90 tabs 0 12/10/24 12/10/24 Rx PFSH Medical History Insulin pump titration Presence of insulin pump Hypercalcemia Diabetes mellitus type 1 PONV (postoperative nausea and vomiting) Postmenopausal Wears glasses Arthritis Easy bruising Dietary restriction Non-smoker Paresthesia Knee pain HTN (hypertension) Thyroid nodule Hyperlipidemia Hypothyroidism Diabetes type 1, controlled Surgical History History of arthroscopic knee surgery H/O colonoscopy History of History of lumpectomy of right breast History of carpal tunnel release of both wrists Family History Mother Diabetes Bleeding disorder High cholesterol Cancer Heart disease Hypertension Melanoma Father Alcoholism Sister Colon cancer Diabetes Brother Diabetes Social History Smoking Status: Never smoker second hand exposure: No alcohol intake: current substance use type: does not use HPI HPI Chief Complaint: 4 M FU Details: CIRILO SNIP, is a 59 F who presents to the office today for follow up. A1C is 6.9% She is using Omnipod insulin pump with Dexcom G7 CGM and automated mode. UPload shows highs post supper. She is frustrated due to weight gain. She is up 4 pounds in the last one year. She is on statin ROS Const Constitutional: Positive for fatigue and weight change; No change in appetite Eyes Eyes: No change in vision ENT ENT: No dizziness/vertigo or difficulty swallowing Cardio Cardiology: No chest pain at rest, chest pain with exertion, shortness of breath or palpitations Musc Musculoskeletal: No abnormal gait, joint pain, numbness or tingling Neuro Neurology: No abnormal gait, memory loss, numbness or tingling Psych Psychiatric: No change in appetite, No memory loss and No Thoughts of harming yourself/Others Resp Respiratory: No cough, chest congestion or shortness of breath Gastro GI: No abdominal pain, constipation, diarrhea or difficulty swallowing Genitourinary-Female: No burning urination Skin Skin: No itchy eyes or wounds Endo Endocrine: Positive for fatigue and weight change Aller/Imm Allergy/Immunologic: No itchy eyes Exam Const General: cooperative, healthy appearing, comfortable, no acute distress, well developed and not cushingoid Nutritional Appearance: well nourished Orientation: alert, awake and oriented x3 HENMT Head: normal to inspection Ears: hearing grossly normal bilaterally Nose: external nose normal Mouth: oral mucosae normal Eyes General: appearance normal, both eyes and all related structures Alignment and Position: alignment normal Periorbital: periorbital findings normal Eyelids: eyelids normal Conjunctivae: c (more content not included)... Normal [facility] Laboratory - Hematology and Cell countsOrdered By: Remberto Lubin on 12-10-2024 HbA1c (Bld) [Mass fraction] 6.9 % High 4.2-6.3 [facility] Absolute lymphocyte countOrd ered By: [facility] HAYWARD Anila Mas on 10-16-2024 Lymphocytes Auto (Unsp spec) [#/Vol] 2.59 10*3/uL 0.83-4.51 [facility] Absolute neutrophil countOrd ered By: KAIS[facility] HAYWARD Anila Mas on 10-16-2024 Neutrophils (Bld) [#/Vol] 5.2 10*3/uL 2.0-7.7 [facility] Anion gap in Serum or Plasma Ordered By: KA[facility] HAYWARD Anila Mas on 10-16-2024 Anion gap [Moles/Vol] 12 mmol/L 5- [facility] Automated lymphocyte count a s percentage of total leukocytesOrdered By: KA[facility] HAYWARD Anila Chace on 10-16-2024 Lymphocytes/100 WBC Auto (Unsp spec) 27.8 % 19- [facility] BUN/creatinine ratioOrdered By: KAIS[facility] HAYWARD Anila Chace on 10-16-2024 Urea nitrogen/Creatinine [Mass ratio] 18.5 mg/mg 10- [facility] Basophil percentageOrdered B y: KAIS[facility] HAYWARD Anila Chace on 10-16-2024 Basophils/100 WBC (Bld) 0.9 % 0-1 [facility] Bilirubin, totalOrdered By: KAIS[facility] HAYWARD Anila Chace on 10-16-2024 Bilirubin [Mass/Vol] 0.25 mg/dL 0.00-1.30 [facility] CBC W/Diff, Automatedon Absolute Lymph 2.59 X10 3/uL Normal 0.83-4.51 [facility] Comment on above: Performed By: #### L 506.1001, L501.9520, L100.0100, L500.4100, L500.4050 ####[facility] [address] [place], [address] Absolute Neut 5.2 X10 3/uL Normal 2.0-7.7 [facility] Comment on above: Performed By: #### L 506.1001, L501.9520, L100.0100, L500.4100, L500.4050 ####[facility] [address] [place], [address] Basophils/100 WBC (Bld) 0.9 % Normal 0-1 [facility] Comment on above: Performed By: #### L 506.1001, L501.9520, L100.0100, L500.4100, L500.4050 ####[facility] [address] [place], [address] Eosinophils/100 WBC (Bld) 4.6 % Normal 0-5 [facility] Comment on above: Performed By: #### L 506.1001, L501.9520, L100.0100, L500.4100, L500.4050 ####[facility] [address] [place], [address] Erythrocyte distribution width (RBC) [Ratio] 13.5 % Normal 11.6-14.6 [facility] Comment on above: Performed By: #### L 506.1001, L501.9520, L100.0100, L500.4100, L500.4050 ####[facility] [address] [place], [address] Hematocrit (Bld) [Volume fraction] 42.2 % Normal 37-47 [facility] Comment on above: Performed By: #### L 506.1001, L501.9520, L100.0100, L500.4100, L500.4050 ####[facility] [address] [place], [address] Hemoglobin (Bld) [Mass/Vol] 13.8 g/dL Normal 12.0-15.0 [facility] Comment on above: Performed By: #### L 506.1001, L501.9520, L100.0100, L500.4100, L500.4050 ####[facility] [address] [place], [address] IG% 0.100 Normal 0.0-0.9 [facility] Comment on above: Result Comment: IG% - Immature Granulocytes (promyelocytes, myelocytes and metamyelocytes) > 1% indicates that a LEFT SHIFT is Present. Performed By: #### L 506.1001, L501.9520, L100.0100, L500.4100, L500.4050 ####[facility] [address] [place], [address] Lymphocytes/100 WBC (Bld) 27.8 % Normal 19-41 [facility] Comment on above: Performed By: #### L 506.1001, L501.9520, L100.0100, L500.4100, L500.4050 ####[facility] [address] [place], [address] MCH (RBC) [Entitic mass] 29.4 pg Normal 27.0-32.0 [facility] Comment on above: Performed By: #### L 506.1001, L501.9520, L100.0100, L500.4100, L500.4050 ####[facility] [address] [place], [address] MCHC (RBC) [Mass/Vol] 32.7 g/dL Normal 32-36 [facility] Comment on above: Performed By: #### L 506.1001, L501.9520, L100.0100, L500.4100, L500.4050 ####[facility] [address] [place], [address] MCV (RBC) [Entitic vol] 90.0 fL Normal 81-99 [facility] Comment on above: Performed By: #### L 506.1001, L501.9520, L100.0100, L500.4100, L500.4050 ####[facility] [address] [place], [address] Monocytes/100 WBC (Bld) 10.4 % High 0-10 [facility] Comment on above: Performed By: #### L 506.1001, L501.9520, L100.0100, L500.4100, L500.4050 ####[facility] [address] [place], [address] Neutrophils/100 WBC (Bld) 56.2 % Normal 47-70 [facility] Comment on above: Performed By: #### L 506.1001, L501.9520, L100.0100, L500.4100, L500.4050 ####[facility] [address] [place], [address] Nucleated RBC (Bld) [#/Vol] 0 10*3/uL Normal 0-5 [facility] Comment on above: Performed By: #### L 506.1001, L501.9520, L100.0100, L500.4100, L500.4050 ####[facility] [address] [place], [place], [id number] Platelet mean volume (Bld) [Entitic vol] 10.0 fL Normal 6.2-12.0 [facility] Comment on above: Performed By: #### L 506.1001, L501.9520, L100.0100, L500.4100, L500.4050 ####[facility] [address] [place], [address] Platelets (Bld) [#/Vol] 330 10*3/uL Normal 150-450 [facility] Comment on above: Performed By: #### L 506.1001, L501.9520, L100.0100, L500.4100, L500.4050 ####[facility] [address] [place], [address] RBC (Bld) [#/Vol] 4.69 10*6/uL Normal 4.2-5.4 [facility] Comment on above: Performed By: #### L 506.1001, L501.9520, L100.0100, L500.4100, L500.4050 ####[facility] [address] [place], [address] RDW SD 44.9 fl High 35.1-43.9 [facility] Comment on above: Performed By: #### L 506.1001, L501.9520, L100.0100, L500.4100, L500.4050 ####[facility] [address] [place], [address] WBC (Bld) [#/Vol] 9.3 10*3/uL Normal 4.4-11.0 [facility] Comment on above: Performed By: #### L 506.1001, L501.9520, L100.0100, L500.4100, L500.4050 ####[facility] [address] [place], [address] Calculated very low density lipoprotein (VLDL) cholesterol measurementOrdered By: KAISER HAYWARD Anila Mas on 10-16-2024 Calculated very low density lipoprotein (VLDL) cholesterol measurement 29 mg/dL 5-40 [facility] Carbon dioxide, total [Moles /volume] in Central venous bloodOrdered By: KAISER HAYWARD Anila Mas on 10-16-2024 CO2 [Moles/Vol] 23.1 mmol/L 21.0-32.0 [facility] Chloride assayOrdered By: [facility] Anila Mas on 10-16-2024 Chloride [Moles/Vol] 103 mmol/L 98-108 [facility] Comprehensive Metabolic Prof ilon 10-16-2024 Albumin [Mass/Vol] 4.4 g/dL Normal 3.4-4.8 [facility] Comment on above: Performed By: #### L 506.1001, L501.9520, L100.0100, L500.4100, L500.4050 ####[facility] [address] [place], [address] Albumin/Globulin [Mass ratio] 1.3 {ratio} Normal 0.9-2.4 [facility] Comment on above: Performed By: #### L 506.1001, L501.9520, L100.0100, L500.4100, L500.4050 ####[facility] [address] [place], [address] ALK PHOS 135 U/L High 35-104 [facility] Comment on above: Performed By: #### L 506.1001, L501.9520, L100.0100, L500.4100, L500.4050 ####[facility] [address] [place], [address] ALT [Catalytic activity/Vol] 21 U/L Normal <=34 [facility] Comment on above: Performed By: #### L 506.1001, L501.9520, L100.0100, L500.4100, L500.4050 ####[facility] [address] [place], [address] AST [Catalytic activity/Vol] 25 U/L Normal <=31 [facility] Comment on above: Performed By: #### L 506.1001, L501.9520, L100.0100, L500.4100, L500.4050 ####[facility] [address] [place], [address] Bilirubin [Mass/Vol] 0.25 mg/dL Normal 0.00-1.30 [facility] Comment on above: Performed By: #### L 506.1001, L501.9520, L100.0100, L500.4100, L500.4050 ####[facility] [address] [place], [address] BUN/CRE 18.5 RATIO Normal 10-20 [facility] Comment on above: Performed By: #### L 506.1001, L501.9520, L100.0100, L500.4100, L500.4050 ####[facility] [address] [place], [address] Calcium [Mass/Vol] 10.4 mg/dL Normal 7.6-11.0 [facility] Comment on above: Performed By: #### L 506.1001, L501.9520, L100.0100, L500.4100, L500.4050 ####[facility] [address] [place], [address] Chloride [Moles/Vol] 103 mmol/L Normal 98-108 [facility] Comment on above: Performed By: #### L 506.1001, L501.9520, L100.0100, L500.4100, L500.4050 ####[facility] [address] [place], [address] CO2 [Moles/Vol] 23.1 mmol/L Normal 21.0-32.0 [facility] Comment on above: Performed By: #### L 506.1001, L501.9520, L100.0100, L500.4100, L500.4050 ####[facility] [address] [place], [address] Creatinine [Mass/Vol] 0.83 mg/dL Normal 0.70-1.20 [facility] Comment on above: Performed By: #### L 506.1001, L501.9520, L100.0100, L500.4100, L500.4050 ####[facility] [address] [place], [address] GAP 12 Normal 5-15 [facility] Comment on above: Performed By: #### L 506.1001, L501.9520, L100.0100, L500.4100, L500.4050 ####[facility] [address] [place], [address] GFR/1.73 sq M.predicted among non-blacks MDRD (S/P/Bld) [Vol rate/Area] 80 mL/min/{1.73_m2} Normal >60 [facility] Comment on above: Result Comment: mL/m in/1.73m2 CKD-EPI Creatinine Equation (2020) Performed By: #### L 506.1001, L501.9520, L100.0100, L500.4100, L500.4050 ####[facility] [address] [place], [address] Globulin (S) [Mass/Vol] 3.3 g/dL Normal 2.2-4.2 [facility] Comment on above: Performed By: #### L 506.1001, L501.9520, L100.0100, L500.4100, L500.4050 ####[facility] [address] [place], [address] Glucose [Mass/Vol] 197 mg/dL High 70-99 [facility] Comment on above: Performed By: #### L 506.1001, L501.9520, L100.0100, L500.4100, L500.4050 ####[facility] [address] [place], [address] Potassium [Moles/Vol] 4.1 mmol/L Normal 3.3-5.1 [facility] Comment on above: Performed By: #### L 506.1001, L501.9520, L100.0100, L500.4100, L500.4050 ####[facility] [address] [place], [address] Sodium [Moles/Vol] 138 mmol/L Normal 133-145 [facility] Comment on above: Performed By: #### L 506.1001, L501.9520, L100.0100, L500.4100, L500.4050 ####[facility] [address] [place], [address] T PROT 7.7 g/dL Normal 5.9-8.4 [facility] Comment on above: Performed By: #### L 506.1001, L501.9520, L100.0100, L500.4100, L500.4050 ####[facility] [address] [place], [place], [address] Urea nitrogen [Mass/Vol] 15 mg/dL Normal 4-19 [facility] Comment on above: Performed By: #### L 506.1001, L501.9520, L100.0100, L500.4100, L500.4050 ####[facility] [address] [place], [address] Eosinophil percentageOrdered By: KAISER HAYWARD Anila Mas on 10-16-2024 Eosinophils/100 WBC (Bld) 4.6 % 0-5 [facility] Erythrocyte distribution wid th ratioOrdered By: KAISER HAYWARD Anila Mas on 10-16-2024 Erythrocyte distribution width (RBC) [Ratio] 13.5 % 11.6-14.6 [facility] Erythrocyte distribution wid th standard deviationOrdered By: KAISER HAYWARD Anila Mas on 10-16-2024 Erythrocyte distribution width (RBC) [Ratio] 44.9 fl High 35.1-43.9 [facility] Glomerular filtration rate ( GFR) estimation/1.73 sq m using serum, plasma, or whole bOrdered By: KAISER HAYWARD Anila Mas on 10-16-2024 GFR/1.73 sq M.predicted among non-blacks MDRD (S/P/Bld) [Vol rate/Area] 80 mL/min/{1.73_m2} >60 [facility] Comment on above: mL/min/1.73m2 CKD-EP I Creatinine Equation (2020) Hematocrit Auto (Bld) [Volum e fraction]Ordered By: KAISER HAYWARD Anila Mas on 10-16-2024 Hematocrit (Bld) [Volume fraction] 42.2 % 37-47 [facility] Hemoglobin measurementOrdere d By: KAISER HAYWARD Anila Mas on 10-16-2024 Hemoglobin (Bld) [Mass/Vol] 13.8 g/dL 12.0-15.0 [facility] Immature granulocytes/100 WB C Auto (Bld)Ordered By: KAISER HAYWARD Anila Mas on 10-16-2024 Immature granulocytes/100 WBC (Bld) 0.100 % 0.0-0.9 [facility] Comment on above: IG% - Immature Granu locytes (promyelocytes, myelocytes and metamyelocytes) > 1% indicates that a LEFT SHIFT is Present. L506.1001on 10-16-2024 Vitamin D 25-OH 40.1 ng/mL Normal 30-100 [facility] Comment on above: Result Comment: Madeleine min D Status Deficiency: <20 ng/mL (50nmol/L) Insufficiency: 20-30 ng/mL (50-75 nmol/L) Sufficiency: 30-100 ng/mL (75-250 nmol/L) Toxicity: >100 ng/mL (>250 nmol/L) Performed By: #### L 506.1001, L501.9520, L100.0100, L500.4100, L500.4050 ####[facility] [address] [place], [address] LDL calc ser/plasOrdered By: KAISER HAYWARD Anila Mas on 10-16-2024 Cholesterol in LDL [Mass/Vol] 117 mg/dL [facility] Comment on above: Gsqxjxlqju=382-600 m g/dL & Higher Uoqw=010 mg/dL or greater Laboratory - Chemistry and C hemistry - challengeOrdered By: KAISER HAYWARD Anila Mas on 10-16-2024 AST [Catalytic activity/Vol] 25 U/L <32 [facility] Lipid Profileon 10-16-2024 CHOL:HDL 4.29 Normal [facility] Comment on above: Performed By: #### L 506.1001, L501.9520, L100.0100, L500.4100, L500.4050 ####[facility] [address] [place], [address] Cholesterol [Mass/Vol] 190 mg/dL Normal <=200 [facility] Comment on above: Result Comment: Chol esterol level, Desirable <200 mg/dL Borderline high cholesterol 200-239 mg/dL High cholesterol >=240 mg/dL Recommendations of the NCEP Adult Treatment Panel for the following risk-cutoff thresholds for the [place] population. Performed By: #### L 506.1001, L501.9520, L100.0100, L500.4100, L500.4050 ####[facility] [address] [place], [address] Cholesterol in HDL [Mass/Vol] 44 mg/dL Normal [facility] Comment on above: Result Comment: Fadia onal Cholesterol Education Program (NCEP) guidelines: <40 mg/dL: Low HDL-cholesterol (major risk factor for CHD) >= 60 mg/dL: High HDL-cholesterol (negative risk factor for CHD) HDL-cholesterol is affected by a number of factors, e.g. smoking, exercise, hormones, sex and age. Performed By: #### L 506.1001, L501.9520, L100.0100, L500.4100, L500.4050 ####[facility] [address] [place], [address] Cholesterol in LDL [Mass/Vol] 117 mg/dL Normal [facility] Comment on above: Result Comment: Bord nwwwju=881-087 mg/dL Higher Qafp=848 mg/dL or greater Performed By: #### L 506.1001, L501.9520, L100.0100, L500.4100, L500.4050 ####[facility] [address] [place], [address] Cholesterol in VLDL [Mass/Vol] 29 mg/dL Normal 5-40 [facility] Comment on above: Performed By: #### L 506.1001, L501.9520, L100.0100, L500.4100, L500.4050 ####[facility] [address] [place], [address] Triglyceride [Mass/Vol] 144 mg/dL Normal [facility] Comment on above: Result Comment: The drugs N-Acetylcysteine and Metamizole may falsely depress this assay. Normal range: <150 mg/dL Borderline High: 150-199 mg/dL High: 200-499 mg/dL Very High: >500 mg/dL Performed By: #### L 506.1001, L501.9520, L100.0100, L500.4100, L500.4050 ####[facility] [address] [place], [address] MCV (mean corpuscular volume ) determinationOrdered By: KAISER HAYWARD Anila Mas on 10-16-2024 MCV (RBC) [Entitic vol] 90.0 fL 81-99 [facility] Mean corpuscular hemoglobin (MCH) determinationOrdered By: KAISER HAYWARD Anila Mas on 10-16-2024 MCH (RBC) [Entitic mass] 29.4 pg 27.0-32.0 [facility] Mean corpuscular hemoglobin concentration (MCHC) determinationOrdered By: KAISER HAYWARD Anila Mas on 10-16-2024 MCHC (RBC) [Mass/Vol] 32.7 g/dL 32-36 [facility] Mean platelet volume determi nationOrdered By: KAISER HAYWARD Anila Mas on 10-16-2024 Platelet mean volume (Bld) [Entitic vol] 10.0 fL 6.2-12.0 [facility] Monocyte percentageOrdered B y: KAISER HAYWARD Anila Mas on 10-16-2024 Monocytes/100 WBC (Bld) 10.4 % High 0-10 [facility] Neutrophil percentageOrdered By: KAISER HAYWARD Anila Mas on 10-16-2024 Neutrophils/100 WBC (Bld) 56.2 % 47-70 [facility] Nucleated red blood cell per centageOrdered By: KAISER HAYWARD Anila Mas on 10-16-2024 Nucleated RBC/100 WBC (Bld) [Ratio] 0 % 0-5 [facility] Platelet countOrdered By: [facility] Anila Mas on 10-16-2024 Platelets (Bld) [#/Vol] 330 10*3/uL 150-450 [facility] Potassium measurement (mass/ volume)Ordered By: KAISER HAYWARD Anila Mas on 10-16-2024 Potassium (Unsp spec) [Mass/Vol] 4.1 mmol/L 3.3-5.1 [facility] RBC Auto (Bld) [#/Vol]Ordere d By: KAISER HAYWARD Anila Mas on 10-16-2024 RBC (Bld) [#/Vol] 4.69 10*6/uL 4.2-5.4 [facility] Screening total cholesterol/ high density lipoprotein (HDL) cholesterol ratioOrdered By: KAISER HAYWARD Anila Mas on 10-16-2024 Cholesterol.total/Cho lesterol in HDL [Mass ratio] 4.29 {ratio} [facility] Serum creatinine measurement (mass/volume)Ordered By: KAISER HAYWARD Anila Mas on 10-16-2024 Creatinine [Mass/Vol] 0.83 mg/dL 0.70-1.20 [facility] Serum globulin measurementOr dered By: KAISER HAYWARD Anila Mas on 10-16-2024 Globulin (S) [Mass/Vol] 3.3 g/dL 2.2-4.2 [facility] Serum glucose measurement (m ass/volume)Ordered By: KAISER HAYWARD Anila Mas on 10-16-2024 Glucose [Mass/Vol] 197 mg/dL High 70-99 [facility] Serum or plasma alanine sanchez otransferase (ALT) measurementOrdered By: KAISER HAYWARD Anila Mas on 10-16-2024 ALT [Catalytic activity/Vol] 21 U/L <35 [facility] Serum or plasma albumin bryce urement (mass/volume)Ordered By: KAISER HAYWARD Anila Mas on 10-16-2024 Albumin [Mass/Vol] 4.4 g/dL 3.4-4.8 [facility] Serum or plasma albumin/glob ulin mass ratioOrdered By: KAISER HAYWARD Anila Mas on 10-16-2024 Albumin/Globulin [Mass ratio] 1.3 {ratio} 0.9-2.4 [facility] Serum or plasma alkaline sarahi sphatase measurementOrdered By: KAISER HAYWARD Anila Mas on 10-16-2024 ALP [Catalytic activity/Vol] 135 U/L High 35-104 [facility] Serum or plasma calcium bryce urement (mass/volume)Ordered By: KAISER HAYWARD Anila Mas on 10-16-2024 Calcium [Mass/Vol] 10.4 mg/dL 7.6-11.0 [facility] Serum or plasma cholesterol in HDL measurement (mass/volume)Ordered By: KAISER HAYWARD Anila Mas on 10-16-2024 Cholesterol in HDL [Mass/Vol] 44 mg/dL >40 [facility] Comment on above: National Cholesterol Education Program (NCEP) guidelines:<40 mg/dL: Low HDL-cholesterol (major risk factor for CHD)>= 60 mg/dL: High HDL-cholesterol (negative risk factor for CHD)HDL-cholesterol is affected by a number of factors, e.g. smoking, exercise, hormones, sex and age. Serum or plasma cholesterol measurement (mass/volume)Ordered By: [facility] on 10-16-2024 Cholesterol [Mass/Vol] 190 mg/dL <201 [facility] Comment on above: Cholesterol level, D esirable <200 mg/dLBorderline high cholesterol 200-239 mg/dLHigh cholesterol >=240 mg/dLRecommendations of the NCEP Adult Treatment Panel for the following risk-cutoff thresholds for the [place] population. Serum or plasma urea nitroge n measurement (mass/volume)Ordered By: [facility]il[facility] Mas on 10-16-2024 Urea nitrogen [Mass/Vol] 15 mg/dL 4-19 [facility] Sodium levelOrdered By: [facility] Chace on 10-16-2024 Sodium [Moles/Vol] 138 mmol/L 133-145 [facility] TSH DL <= 0.005 mIU/L QnOrde red By: [facility] on 10-16-2024 TSH Qn 6.380 uIU/mL High 0.300-4.200 [facility] Thyroid Stim Hormone (TSH)on 10-16-2024 TSH 6.380 uIU/mL High 0.300-4.200 [facility] Comment on above: Performed By: #### L 506.1001, L501.9520, L100.0100, L500.4100, L500.4050 ####[facility] [address] [place], [address] Total proteinOrdered By: [facility]il[facility] on 10-16-2024 Protein [Mass/Vol] 7.7 g/dL 5.9-8.4 [facility] Triglycerides measurementOrd ered By: [facility] on 10-16-2024 Triglyceride [Mass/Vol] 144 mg/dL <199 [facility] Comment on above: The drugs N-Acetylcy steine and Metamizole may falsely depress this assay. Normal range: <150 mg/dLBorderline High: 150-199 mg/dLHigh: 200-499 mg/dLVery High: >500 mg/dL White blood cell (WBC) count Ordered By: KAISER HAYWARD Anila Mas on 10-16-2024 WBC (Bld) [#/Vol] 9.3 10*3/uL 4.4-11.0 [facility] Endocrinology Visit Reporton 07-23-2024 Endocrinology Visit Report [facility] [address] [place] [address] OFFICE VISIT Date of Service: 07/23/24 MR#: [id number] Acct: [id number] Name: CIRILO CEBALLOS Rep #: [id number] : 1965 Provider: Teressa Duron Age/Sex: 59/F Location: [facility] Status: Signed Intake Vital Signs 02/20/24 12:57 04/15/24 15:42 07/23/24 13:03 Height 5 ft 2 in 5 ft 2 in 5 ft 2 in Weight: 161 lb 6 oz BMI 29.5 BP 117/73 Blood Pressure Location Lt brachial Position Sitting Respiration 16 Pulse 58 L Pulse Source Monitor Temp 97.7 F L Temp Source Temporal Pulse Oximetry (%) 96 Oxygen Delivery Method room air Intake Visit Reasons: 4 M FU 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 Accompanied by: Self Is patient in pain?: No Allergies No Known Allergies Allergy (Verified 07/23/24 12:57) Medications ???Medication ???Instructions ???Recorded ???Confirmed ???Type flash glucose sensor #1 ea 02/08/21 07/23/24 History insulin aspart U-100 100 unit/mL 100 unit subcut DAILY #30 mL 02/02/24 07/23/24 Rx subcutaneous solution (Novolog U-100 Insulin aspart) cholecalciferol (vitamin D3) 125 125 mcg PO DAILY 02/20/24 07/23/24 History mcg (5,000 unit) capsule propranolol 20 mg tablet 20 mg PO BID PRN 02/20/24 07/23/24 History sertraline 50 mg tablet 50 mg PO QDAY 02/20/24 07/23/24 History blood-glucose sensor (Dexcom G6 #3 ea 04/10/24 07/23/24 Rx Sensor device) blood-glucose transmitter (Dexcom #1 ea 04/10/24 07/23/24 Rx G6 Transmitter device) insulin pump cart,automated,BT #10 ea 04/10/24 07/23/24 Rx (Omnipod 5 G6 Pods (Gen 5) subcutaneous cartridge) amlodipine 5 mg tablet 5 mg PO QDAY 04/15/24 07/23/24 History celecoxib 100 mg capsule (Celebrex) 100 mg PO BID #60 caps 04/15/24 07/23/24 Rx levothyroxine 75 mcg tablet 75 mcg PO DAILY thyroid #90 tabs 04/23/24 07/23/24 Rx atorvastatin 20 mg tablet 20 mg PO QDAY #90 tabs 06/17/24 07/23/24 Rx PFSH Medical History Insulin pump titration Presence of insulin pump Hypercalcemia Diabetes mellitus type 1 PONV (postoperative nausea and vomiting) Postmenopausal Wears glasses Arthritis Easy bruising Dietary restriction Non-smoker Paresthesia Knee pain HTN (hypertension) Thyroid nodule Hyperlipidemia Hypothyroidism Diabetes type 1, controlled Surgical History History of arthroscopic knee surgery H/O colonoscopy History of History of lumpectomy of right breast History of carpal tunnel release of both wrists Family History Mother Diabetes Bleeding disorder High cholesterol Cancer Heart disease Hypertension Melanoma Father Alcoholism Sister Colon cancer Diabetes Brother Diabetes Social History Smoking Status: Never smoker second hand exposure: No alcohol intake: current substance use type: does not use HPI HPI Chief Complaint: 4 M FU Details: CIRILO CEBALLOS, is a 59 F who presents to the office today for follow up. A1C is 7.7% GMI is 7.2% She is using Omnipod 5 with Dexcom G7 CGM and automated mode. Sugars were a bit high last month, but are improving. She is taking a statin. She has hypothyroidism and is on levothyroxine. LDL 85 TSH 2.3 ROS Const Constitutional: No body ache, chills, excessive sweating, fatigue, fever(s), frequent falls, headache(s), snoring, weakness or change in appetite Eyes Eyes: No blurry vision, change in vision, eye pain or Light sensitivity ENT ENT: No abnormal hearing, ear or mastoid pain, tinnitus, nasal congestion, headache(s), neck pain or sore throat Cardio Cardiology: No chest pain at rest, chest pain with exertion, excessive sweating, dyspnea on exertion, lightheadedness, orthopnea or palpitations Musc Musculoskeletal: No abnormal gait, joint pain, back pain, limited range of motion, muscle weakness, neck pain or numbness Neuro Neurology: No abnormal gait, abnormal hearing, weakness, frequent falls, headache(s), memory loss or numbness Psych Psychiatric: No anxiety, No change in appetite, No depression, No memory loss and No Thoughts of harming yourself/Others Ciaran/Lymp Hematologic/Lymphatic: No easy bleeding or easy bruising Resp Respiratory: No cough, shortness of breath, snoring or wheezing Gastro GI: No abdominal pain, change in bowel habits, constipation, cramping, diarrhea, nausea/dyspepsia or vomiting Genitourinary-Female: No burning urination, painful urination, urinary incontinence or urinary frequency Skin Skin: No dry skin, redness, lesions, itchy ey (more content not included)... Normal [facility] Basic Metabolic Profile (BMP )on 06-26-2024 BUN/CRE 10.1 RATIO Normal -20 [facility] Comment on above: Performed By: #### L 506.1000, L500.2500, L100.0100, L503.0105 ####[facility] [address] [place], [address] CA,Total 9.5 mg/dL Normal 8.5-10.1 [facility] Comment on above: Performed By: #### L 506.1000, L500.2500, L100.0100, L503.0105 ####[facility] [address] [place], [address] Chloride [Moles/Vol] 106 mmol/L Normal 98-107 [facility] Comment on above: Performed By: #### L 506.1000, L500.2500, L100.0100, L503.0105 ####[facility] [address] [place], [address] CO2 [Moles/Vol] 23.0 mmol/L Normal 21.0-32.0 [facility] Comment on above: Performed By: #### L 506.1000, L500.2500, L100.0100, L503.0105 ####[facility] [address] [place], [address] Creatinine [Mass/Vol] 0.89 mg/dL Normal 0.55-1.02 [facility] Comment on above: Result Comment: The validity of the calculated GFR GFRAA in patients over 70 years has not been determined. Clinical correlation is essential. Performed By: #### L 506.1000, L500.2500, L100.0100, L503.0105 ####[facility] [address] [place], [address] EST GFR - AA 83 mL/min Normal >60 [facility] Comment on above: Result Comment: Afri can [place] GFR Calc Performed By: #### L 506.1000, L500.2500, L100.0100, L503.0105 ####[facility] [address] [place], [address] GAP 7 Normal 5-15 [facility] Comment on above: Performed By: #### L 506.1000, L500.2500, L100.0100, L503.0105 ####[facility] [address] [place], [address] GFR/1.73 sq M.predicted among non-blacks MDRD (S/P/Bld) [Vol rate/Area] 68 mL/min/{1.73_m2} Normal >60 [facility] Comment on above: Result Comment: Non- GFR Calc Performed By: #### L 506.1000, L500.2500, L100.0100, L503.0105 ####[facility] [address] [place], [address] Glucose [Mass/Vol] 231 mg/dL High 74-106 [facility] Comment on above: Result Comment: Gluc ose result greater than or equal to 200 mg/dL suggests DIABETES MELLITUS per A.D.A. criteria. Performed By: #### L 506.1000, L500.2500, L100.0100, L503.0105 ####[facility] [address] [place], [address] Potassium [Moles/Vol] 3.9 mmol/L Normal 3.5-5.1 [facility] Comment on above: Performed By: #### L 506.1000, L500.2500, L100.0100, L503.0105 ####[facility] [address] [place], [address] Sodium [Moles/Vol] 136 mmol/L Normal 136-145 [facility] Comment on above: Performed By: #### L 506.1000, L500.2500, L100.0100, L503.0105 ####[facility] [address] [place], [address] Urea nitrogen [Mass/Vol] 9 mg/dL Normal 7-18 [facility] Comment on above: Performed By: #### L 506.1000, L500.2500, L100.0100, L503.0105 ####[facility] [address] [place], [address] CBC W/Diff, Automatedon 06-16 Absolute Lymph 2.26 X10 3/uL Normal 0.83-4.51 [facility] Comment on above: Performed By: #### L 506.1000, L500.2500, L100.0100, L503.0105 ####[facility] [address] [place], [address] Absolute Neut 4.4 X10 3/uL Normal 2.0-7.7 [facility] Comment on above: Performed By: #### L 506.1000, L500.2500, L100.0100, L503.0105 ####[facility] [address] [place], [address] Basophils/100 WBC (Bld) 1.1 % High 0-1 [facility] Comment on above: Performed By: #### L 506.1000, L500.2500, L100.0100, L503.0105 ####[facility] [address] [place], [address] Eosinophils/100 WBC (Bld) 5.5 % High 0-5 [facility] Comment on above: Performed By: #### L 506.1000, L500.2500, L100.0100, L503.0105 ####[facility] [address] [place], [address] Erythrocyte distribution width (RBC) [Ratio] 12.7 % Normal 11.6-14.6 [facility] Comment on above: Performed By: #### L 506.1000, L500.2500, L100.0100, L503.0105 ####[facility] [address] [place], [address] Hematocrit (Bld) [Volume fraction] 38.9 % Normal 37-47 [facility] Comment on above: Performed By: #### L 506.1000, L500.2500, L100.0100, L503.0105 ####[facility] [address] [place], [address] Hemoglobin (Bld) [Mass/Vol] 12.7 g/dL Normal 12.0-15.0 [facility] Comment on above: Performed By: #### L 506.1000, L500.2500, L100.0100, L503.0105 ####[facility] [address] [place], [address] IG% 0.100 Normal 0.0-0.9 [facility] Comment on above: Result Comment: IG% - Immature Granulocytes (promyelocytes, myelocytes and metamyelocytes) > 1% indicates that a LEFT SHIFT is Present. Performed By: #### L 506.1000, L500.2500, L100.0100, L503.0105 ####[facility] [address] [place], [address] Lymphocytes/100 WBC (Bld) 28.7 % Normal 19-41 [facility] Comment on above: Performed By: #### L 506.1000, L500.2500, L100.0100, L503.0105 ####[facility] [address] [place], [address] MCH (RBC) [Entitic mass] 29.7 pg Normal 27.0-32.0 [facility] Comment on above: Performed By: #### L 506.1000, L500.2500, L100.0100, L503.0105 ####[facility] [address] [place], [address] MCHC (RBC) [Mass/Vol] 32.6 g/dL Normal 32-36 [facility] Comment on above: Performed By: #### L 506.1000, L500.2500, L100.0100, L503.0105 ####[facility] [address] [place], [address] MCV (RBC) [Entitic vol] 90.9 fL Normal 81-99 [facility] Comment on above: Performed By: #### L 506.1000, L500.2500, L100.0100, L503.0105 ####[facility] [address] [place], [address] Monocytes/100 WBC (Bld) 9.1 % Normal 0-10 [facility] Comment on above: Performed By: #### L 506.1000, L500.2500, L100.0100, L503.0105 ####[facility] [address] [place], [address] Neutrophils/100 WBC (Bld) 55.5 % Normal 47-70 [facility] Comment on above: Performed By: #### L 506.1000, L500.2500, L100.0100, L503.0105 ####[facility] [address] [place], [address] Nucleated RBC (Bld) [#/Vol] 0 10*3/uL Normal 0-5 [facility] Comment on above: Performed By: #### L 506.1000, L500.2500, L100.0100, L503.0105 ####[facility] [address] [place], [address] Platelet mean volume (Bld) [Entitic vol] 11.2 fL Normal 6.2-12.0 [facility] Comment on above: Performed By: #### L 506.1000, L500.2500, L100.0100, L503.0105 ####[facility] [address] [place], [address] Platelets (Bld) [#/Vol] 265 10*3/uL Normal 150-450 [facility] Comment on above: Performed By: #### L 506.1000, L500.2500, L100.0100, L503.0105 ####[facility] [address] [place], [address] RBC (Bld) [#/Vol] 4.28 10*6/uL Normal 4.2-5.4 [facility] Comment on above: Performed By: #### L 506.1000, L500.2500, L100.0100, L503.0105 ####[facility] [address] [place], [address] RDW SD 41.9 fl Normal 35.1-43.9 [facility] Comment on above: Performed By: #### L 506.1000, L500.2500, L100.0100, L503.0105 ####[facility] [address] [place], [address] WBC (Bld) [#/Vol] 7.9 10*3/uL Normal 4.4-11.0 [facility] Comment on above: Performed By: #### L 506.1000, L500.2500, L100.0100, L503.0105 ####[facility] [address], [address] Vitamin B12on 4 Cobalamin (Vitamin B12) [Mass/Vol] 491 pg/mL Normal 211-911 [facility] Comment on above: Performed By: #### L 506.1000, L500.2500, L100.0100, L503.0105 ####[facility] [address] [place], [address] Vitamin D,25 Hydroxyon 06-26 Vitamin D 25-OH 44.6 ng/mL Normal [facility] Comment on above: Result Comment: Madeleine min D 25(OH) Status Range Deficiency <20 ng/mL (50nmol/L) Insufficiency 20 - 30 ng/mL (50 - 75 nmol/L) Sufficiency 30 - 100 ng/mL (75 - 250 nmol/L) Toxicity >100 ng/mL (>250 nmol/L) Performed By: #### L 506.1000, L500.2500, L100.0100, L503.0105 ####[facility] [address] [place], [address] SCRN MAMM (CAD)W/ALFONZO BILATo n 05-21-2024 SCRN MAMM (CAD)W/ALFONZO BILAT [facility] Imaging Services [address] [place] [address] SCRN MAMM (CAD)W/ALFONZO BILAT MR#: [id number] Acct: [id number] Name: CIRILO CEBALLOS Rep #: [id number] : 1965 F 59 From: Jorge rider MD PCP: MONAE Verduzco, STROKE COORDINATOR-C Status: REG CL Study: SCRN MAMM (CAD)W/ALFONZO BILAT Date of Exam: 12/07 Exam# [id number] Ordering Dr: Anila Mas STROKE COORDINATOR-C [id number] MAMMOGRAPHY - BILATERAL SCREENING REASON FOR EXAM: Female, 59 years old. Routine annual screening examination. PERTINENT HISTORY: Non-contributory. TECHNIQUE: Digital bilateral breast alfonzo (3D mammographic acquisition) in the CC and MLO projections. 2-D mediolateral oblique (MLO) and craniocaudad (CC) views of both breasts were obtained. CAD: Full Field Digital Mammography with Computer Added Detection was performed. COMPARISON: Comparison is made with prior study dated May 01, 2023 and May 12, 2020. FINDINGS: Breast Composition: The breasts are heterogeneously dense, which may obscure small masses. There are no dominant masses or suspicious calcifications. Stable small bilateral fat containing axillary lymph nodes. No other significant abnormalities are identified. There has been no significant change since the prior study. BI/SCRN MAMM (CAD)W/ALFONZO BILAT IMPRESSION: Stable bilateral screening mammogram. Yearly follow-up mammogram recommended. (A) ASSESSMENT CATEGORY: BIRADS Category 2: Benign. A letter regarding these results will be sent to the patient by the facility within 30 days. Approximately 10% of breast cancers are not detected by mammography. A normal mammogram should not delay biopsy of a clinically suspicious abnormality. [id number] Electronically Signed: Jorge Santizo MD at 9:55 EST , CC: [facility] STROKE COORDINATOR-C Anila Mas Supervisor Die Casting: Signed Normal [facility] T4 Free Directon 04-23-2024 T4 FREE DIRECT 1.18 ng/dL Normal 0.76-1.46 [facility] Comment on above: Performed By: #### L 506.0400, L501.9520 ####[facility] [address] [place], [address] Thyroid Stim Hormone (TSH)on 04-23-2024 TSH 2.320 uIU/mL Normal 0.358-3.740 [facility] Comment on above: Performed By: #### L 506.0400, L501.9520 #### [facility] [address] [place], [address] Knee 4 or More Viewson 04-15 Knee 4 or More Views [facility] [address] [place] [address] Knee 4 or More Views MR#: [id number] Acct: [id number] Name: CIRILO CEBALLOS TERRIE Rep #: [id number] : 1965 F 59 From: Luiz weiss MD PCP: Anila Mas, [facility], STROKE COORDINATOR-C Status: DEP AMB Study: Knee 4 or More Views Date of Exam: 04/15/24 Exam# [id number] Ordering Dr: [place] [id number] INDICATION: pain EXAMINATION/TECHNIQUE: X-RAY - RIGHT XR Knee Complete 4 Views or More COMPARISON: 01/06/2022. FINDINGS: No acute fracture or malalignment. Mild tricompartmental joint space narrowing and osteophytosis. No joint effusion. The soft tissues are unremarkable. RAD/Knee 4 or More Views IMPRESSION: No acute abnormalities. 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 Electronically Signed: Luiz De León MD at 17:04 EDT Reading Location ID and State: [facility] / [place] Tel , Service support , CC: [facility] STROKE COORDINATOR-Trina Mas; Dr. Savage Sanchez DO Supervisor Die Casting: Signed Normal [facility] Orthopedic Visit Reporton Orthopedic Visit Report [facility] [address] [place] [address] OFFICE VISIT Date of Service: 04/15/24 MR#: [id number] Acct: [id number] Name: CIRILO CEBALLOS TERRIE Rep #: [id number] : 1965 Provider: Dr. Savage parker DO Age/Sex: 59/F Location: [facility] [place] Status: Signed Intake Vital Signs 02/20/24 12:57 04/15/24 15:42 Height 5 ft 2 in 5 ft 2 in Weight: 159 lb 159 lb BMI 29.0 29.0 BP 112/72 Blood Pressure Location Lt brachial Position Sitting Pulse 72 Pulse Source Monitor Pulse Oximetry (%) 96 Oxygen Delivery Method room air Intake Visit Reasons: RIGHT KNEE Is patient in pain?: Yes Allergies No Known Allergies Allergy (Verified 04/15/24 15:46) Medications ???Medication ???Instructions ???Recorded ???Confirmed ???Type loratadine 10 mg tablet 10 mg PO DAILY allergies 12/20/19 02/20/24 History flash glucose sensor #1 ea 02/08/21 02/20/24 History levothyroxine 75 mcg tablet 75 mcg PO DAILY thyroid #90 tabs 05/02/23 02/20/24 Rx atorvastatin 20 mg tablet 20 mg PO QDAY #90 tabs 07/11/23 02/20/24 Rx insulin aspart U-100 100 unit/mL 100 unit subcut DAILY #30 mL 02/02/24 02/20/24 Rx subcutaneous solution (Novolog U-100 Insulin aspart) cholecalciferol (vitamin D3) 125 125 mcg PO DAILY 02/20/24 02/20/24 History mcg (5,000 unit) capsule propranolol 20 mg tablet 20 mg PO BID PRN 02/20/24 02/20/24 History sertraline 50 mg tablet 50 mg PO QDAY 02/20/24 02/20/24 History blood-glucose sensor (Dexcom G6 #3 ea 04/10/24 Rx Sensor device) blood-glucose transmitter (Dexcom #1 ea 04/10/24 Rx G6 Transmitter device) insulin pump cart,automated,BT #10 ea 04/10/24 Rx (Omnipod 5 G6 Pods (Gen 5) subcutaneous cartridge) amlodipine 5 mg tablet 5 mg PO QDAY 04/15/24 04/15/24 History celecoxib 100 mg capsule (Celebrex) 100 mg PO BID #60 caps 04/15/24 04/15/24 Rx PFSH Medical History Insulin pump titration Presence of insulin pump Hypercalcemia Diabetes mellitus type 1 PONV (postoperative nausea and vomiting) Postmenopausal Wears glasses Arthritis Easy bruising Dietary restriction Non-smoker Paresthesia Knee pain HTN (hypertension) Thyroid nodule Hyperlipidemia Hypothyroidism Diabetes type 1, controlled Surgical History History of arthroscopic knee surgery H/O colonoscopy History of History of lumpectomy of right breast History of carpal tunnel release of both wrists Family History Mother Diabetes Bleeding disorder High cholesterol Cancer Heart disease Hypertension Melanoma Father Alcoholism Sister Colon cancer Diabetes Brother Diabetes Social History Smoking Status: Never smoker second hand exposure: No alcohol intake: current substance use type: does not use HPI RIGHT KNEE Details: This documentation accurately reflects the service provided and the decisions made by me, Dr. Savage Sanchez, DO 04/15/24913. Part of today???s visit was documented by [ ], acting as scribe. CIRILO CEBALLOS is a 59 year old F here today for her right knee. She is a previous patient of Dr. Hamm and Amy Ling however have not seen her before. Patient states that she had a meniscus tear and had [address] Hamm. She was doing well after her surgeries but now her pain is worsening. Her pain started worsening about 1 month ago. Patient denies any recent injury. She complains of knee achiness. She complains of pain over her lateral knee, anterior and medial knee. Patient has popping and clicking which is not painful. She denies any instability. Patient has increased pain with all activities. Patient is taking ibu once a day for about 4 weeks and wearing a brace although it is not helpful. Patient denies any recent xrays or MRI. She used pensaid which was helpful. She has had euflexxa injections which were helpful for about a month in 2020. Patient denies any physical therapy. Ortho Exam General General: Yes no acute distress Neurologic: Yes alert and Yes oriented x3 Psychologic: Yes reasonable and appropriate Right Knee Skin/Wound: Yes CDI, No erythema, No ecchymosis and No swelling Homans Sign: No Knee ROM: Yes ROM-Extension -20 to 0 and Yes ROM-Flexion 0-140 (118) Examination: Yes Med jt line tenderness, No Lat jt line tenderness, No Crepitus, No Kely's Test, No Gastelum's and Yes TTP Pes Anserine (mild) Stability: NML: Anterior Drawer, NML: Posterior Drawer, NML: Valgus 0, NML: Valgus 30, NML: Varus 0 and NML: Varus 30 Patella Translation: 1 Patella Grind: No KNEE: no edema. (more content not included)... Normal [facility] Comprehensive Metabolic Prof ilon 02-26-2024 Albumin [Mass/Vol] 3.6 g/dL Normal 3.2-5.0 [facility] Comment on above: Performed By: #### L 501.9520, L506.1000, L500.4100, L500.4050, L502.0250 #### [facility] [address] [place], [address] Albumin/Globulin [Mass ratio] 1.0 {ratio} Normal 0.9-2.4 [facility] Comment on above: Performed By: #### L 501.9520, L506.1000, L500.4100, L500.4050, L502.0250 #### [facility] [address] [place], [address] ALK P 92 U/L Normal 45-117 [facility] Comment on above: Performed By: #### L 501.9520, L506.1000, L500.4100, L500.4050, L502.0250 #### [facility] [address] [place], [address] ALT [Catalytic activity/Vol] 44 U/L Normal 13-56 [facility] Comment on above: Performed By: #### L 501.9520, L506.1000, L500.4100, L500.4050, L502.0250 #### [facility] [address] [place], [address] AST [Catalytic activity/Vol] 28 U/L Normal 15-37 [facility] Comment on above: Performed By: #### L 501.9520, L506.1000, L500.4100, L500.4050, L502.0250 #### [facility] [address] [place], [address] Bilirubin [Mass/Vol] 0.50 mg/dL Normal 0.20-1.00 [facility] Comment on above: Result Comment: For patients on eltrombopag therapy, use of Dimension [place] TBIL is not recommended. Performed By: #### L 501.9520, L506.1000, L500.4100, L500.4050, L502.0250 #### [facility] [address] [place], [address] BUN/CRE 19.2 RATIO Normal 10-20 [facility] Comment on above: Performed By: #### L 501.9520, L506.1000, L500.4100, L500.4050, L502.0250 #### [facility] [address] [place], [address] CA,Total 9.8 mg/dL Normal 8.5-10.1 [facility] Comment on above: Performed By: #### L 501.9520, L506.1000, L500.4100, L500.4050, L502.0250 #### [facility] [address] [place], [address] Chloride [Moles/Vol] 107 mmol/L Normal 98-107 [facility] Comment on above: Performed By: #### L 501.9520, L506.1000, L500.4100, L500.4050, L502.0250 #### [facility] [address] [place], [address] CO2 [Moles/Vol] 23.0 mmol/L Normal 21.0-32.0 [facility] Comment on above: Performed By: #### L 501.9520, L506.1000, L500.4100, L500.4050, L502.0250 #### [facility] [address] [place], [address] Creatinine [Mass/Vol] 0.94 mg/dL Normal 0.55-1.02 [facility] Comment on above: Result Comment: The validity of the calculated GFR GFRAA in patients over 70 years has not been determined. Clinical correlation is essential. Performed By: #### L 501.9520, L506.1000, L500.4100, L500.4050, L502.0250 #### [facility] [address] [place], [address] EST GFR - AA 78 mL/min Normal >60 [facility] Comment on above: Result Comment: Afri can [place] GFR Calc Performed By: #### L 501.9520, L506.1000, L500.4100, L500.4050, L502.0250 #### [facility] [address] [place], [address] GAP 6 Normal 5-15 [facility] Comment on above: Performed By: #### L 501.9520, L506.1000, L500.4100, L500.4050, L502.0250 #### [facility] [address] [place], [address] GFR/1.73 sq M.predicted among non-blacks MDRD (S/P/Bld) [Vol rate/Area] 64 mL/min/{1.73_m2} Normal >60 [facility] Comment on above: Result Comment: Non- GFR Calc Performed By: #### L 501.9520, L506.1000, L500.4100, L500.4050, L502.0250 #### [facility] [address] [place], [address] Globulin (S) [Mass/Vol] 3.5 g/dL Normal 2.2-4.2 [facility] Comment on above: Performed By: #### L 501.9520, L506.1000, L500.4100, L500.4050, L502.0250 #### [facility] [address] [place], [address] Glucose [Mass/Vol] 236 mg/dL High 74-106 [facility] Comment on above: Result Comment: Gluc ose result greater than or equal to 200 mg/dL suggests DIABETES MELLITUS per A.D.A. criteria. Performed By: #### L 501.9520, L506.1000, L500.4100, L500.4050, L502.0250 #### [facility] [address] [place], [address] Potassium [Moles/Vol] 4.2 mmol/L Normal 3.5-5.1 [facility] Comment on above: Performed By: #### L 501.9520, L506.1000, L500.4100, L500.4050, L502.0250 #### [facility] [address] [place], [address] Sodium [Moles/Vol] 136 mmol/L Normal 136-145 [facility] Comment on above: Performed By: #### L 501.9520, L506.1000, L500.4100, L500.4050, L502.0250 #### [facility] [address] [place], [address] T PROT 7.1 g/dL Normal 6.4-8.2 [facility] Comment on above: Performed By: #### L 501.9520, L506.1000, L500.4100, L500.4050, L502.0250 #### [facility] [address] [place], [address] Urea nitrogen [Mass/Vol] 18 mg/dL Normal 7-18 [facility] Comment on above: Performed By: #### L 501.9520, L506.1000, L500.4100, L500.4050, L502.0250 #### [facility] [address] [place], [address] Lipid Profileon 02-26-2024 Cholesterol [Mass/Vol] 142 mg/dL Normal 200 [facility] Comment on above: Result Comment: <200 mg/dL Desirable 200-240 mg/dL Borderline >240 mg/dL High Risk Performed By: #### L 501.9520, L506.1000, L500.4100, L500.4050, L502.0250 #### [facility] [address] [place], [address] Cholesterol in HDL [Mass/Vol] 37 mg/dL Low [facility] Comment on above: Result Comment: The drugs N-Acetylcysteine and Metamizole may falsely depress this assay. Reference Range HDL <40 mg/dL Low HDL Cholesterol HDL >or= 60 mg/dL High HDL Cholesterol Performed By: #### L 501.9520, L506.1000, L500.4100, L500.4050, L502.0250 #### [facility] [address] [place], [address] Cholesterol in LDL [Mass/Vol] 85 mg/dL Normal 0-130 [facility] Comment on above: Performed By: #### L 501.9520, L506.1000, L500.4100, L500.4050, L502.0250 #### [facility] [address] [place], [address] Cholesterol in VLDL [Mass/Vol] 20 mg/dL Normal 5-40 [facility] Comment on above: Performed By: #### L 501.9520, L506.1000, L500.4100, L500.4050, L502.0250 #### [facility] [address] [place], [address] Triglyceride [Mass/Vol] 102 mg/dL Normal [facility] Comment on above: Result Comment: The drugs N-Acetylcysteine and Metamizole may falsely depress this assay. Serum Triglycerides Reference Interval Normal <150 mg/dL Borderline high 150 - 199 mg/dL High 200 - 499 mg/dL Very High > or = 500 mg/dL Performed By: #### L 501.9520, L506.1000, L500.4100, L500.4050, L502.0250 #### [facility] [address] [place], [address] Microalb:Creat Ratio,Random URon 02-26-2024 Creatinine [Mass/Vol] 179.00 mg/dL Normal NO RAN GE EST. [facility] Comment on above: Performed By: #### L 501.9520, L506.1000, L500.4100, L500.4050, L502.0250 #### [facility] [address] [place], [address] MALB:CRE 10.8 mg/g CRE Normal <30 mg/g CRE [facility] Comment on above: Performed By: #### L 501.9520, L506.1000, L500.4100, L500.4050, L502.0250 #### [facility] [address] [place], [address] MICROALBUMIN,UR 19.4 mg/L Normal NO RANGE EST. [facility] Comment on above: Performed By: #### L 501.9520, L506.1000, L500.4100, L500.4050, L502.0250 #### [facility] [address] [place], [address] Thyroid Stim Hormone (TSH)on 02-26-2024 TSH 2.67 uIU/mL Normal 0.358-3.74 [facility] Comment on above: Performed By: #### L 501.9520, L506.1000, L500.4100, L500.4050, L502.0250 #### [facility] [address] [place], [address] Vitamin D,25 Hydroxyon 02-25 Vitamin D 25-OH 99.8 ng/mL Normal [facility] Comment on above: Result Comment: Madeleine min D 25(OH) Status Range Deficiency <20 ng/mL (50nmol/L) Insufficiency 20 - 30 ng/mL (50 - 75 nmol/L) Sufficiency 30 - 100 ng/mL (75 - 250 nmol/L) Toxicity >100 ng/mL (>250 nmol/L) Performed By: #### L 501.9520, L506.1000, L500.4100, L500.4050, L502.0250 #### [facility] [address] [place], [address] CNOVon 12-05-2023 CNOV Office Visit (PODIWS ) NOHELIACIRILO Suzy ([id number]) 1965 F Date Time Provider Department 12/05/23 11:15 AM AMY NOBLE During your visit today, we recorded the following information about you: Ivanna Golden LPN 12/05/2023 11:25 AM Signed aspard Amy Noble 12/05/2023 11:25 AM Signed Initial Office Visit Subjective: This 58 year old female presents to clinic for diabetic foot check. Patient has the following complaints: right foot pain. Patient presents to clinic for evaluation of right foot. Had been experiencing pain to the lateral aspect of right 5th metatarsal head. Patient has noticed the pain is now traveling proximally to the 5th metatarsal base and has noticed the pain is affecting her arch. The pain is all the times but varies in intensity. She states the more active she is, the more pain she has. Patient will treat with ibuprofen but she takes that intermittently because it upsets her stomach. Patient admits to being diabetic for 13 years now. Patient +B/T/N in feet at this time. Patient -pain in legs when walking. No other pedal complaints at this time. No change in medications or medical history since last visit. States her last A1c (outside ccf) was 7.1. Of note, she states she is deficient in vitamin d and is on 2000 units of vitamin d per day. PAIN EVALUATION 12/05/2023 1104 Pain Level: 7 Pain Location: Foot-Right Description: Sharp Duration Amount of Time: 3 Duration Units: Months Frequency: Intermittent Intervention/Comfort measure: Relaxation;Reposition Hemoglobin A1C (%) Date Value 04/05/2016 9.5 10/05/2015 9.1 12/24/2014 8.0 09/23/2014 8.0 Hemoglobin A1C (POCT) (%) Date Value 07/27/2016 10.2 PCP: Cecy Alarcon DO, DO PAST MEDICAL HISTORY Diagnosis Date Goiter Hypercholesteremia Hypertension Type I (juvenile type) diabetes mellitus without mention of complication, not stated as uncontrolled (HCC) Current Outpatient Medications Medication Sig OMNIPOD 5 G6 PODS, GEN 5, crtg levothyroxine (SYNTHROID) 75 mcg tablet propranolol (INDERAL) 20 mg tablet sertraline (ZOLOFT) 50 mg tablet DEXCOM G6 TRANSMITTER en as directed. ibuprofen (MOTRIN) 800 mg tablet Take 800 mg by mouth three times a day as needed. atorvastatin (LIPITOR) 20 mg tablet Take 1 tablet by mouth once daily. lisinopril (ZESTRIL, PRINIVIL) 5 mg tablet Take 1 tablet by mouth once daily. multivitamin tablet Take 1 tablet by mouth once daily. No current facility-administered medications for this visit. ALLERGIES No Known Allergies PAST SURGICAL HISTORY Procedure Laterality Date DELIVERY ONLY 2003 , low transverse NEUROPLASTY AND/TRANSPOS MEDIAN NRV CARPAL TUNNE 1999 Carpal tunnel decomp PAST SURGICAL HISTORY OF - Tumor on L breast removed FAMILY HISTORY Problem Relation Age of Onset Diabetes Mother Heart Mother Diabetes Sister Diabetes Brother Social History Tobacco Use Smoking status: Never Substance Use Topics Alcohol use: No Drug use: No REVIEW OF SYSTEMS GENERAL: Negative for Malaise, significant weight loss, fever RESPIRATORY: Negative for cough, wheezing and shortness of breath CARDIOVASCULAR: Negative for chest pain, leg swelling and palpitations GI: Negative for abdominal discomfort, blood in stools or black stools and change in bowel habits : Negative for dysuria, frequency and incontinence MUSCULOSKELETAL: Negative for joint pain or swelling, back pain, and muscle pain. SKIN: Negative for lesions, rash, and itching. HEMATOLOGY/LYMPHOLOGY Negative for prolonged bleeding, bruising easily, and swollen nodes. ENDOCRINE: Negative for cold or heat intolerance, polyuria, polydipsia and goiter. NEURO: negative The remainder of the review of systems is noncontributory. Objective: Patient presents to clinic ambulating in [facility] Constitutional: Pt is a well developed 58 year old female who is alert, oriented, cooperative and in no apparent distress. Eyes: Following during examination. No redness or drainage. Respiratory: RR normal and nonlabored. Even breathing. No evidence of distress. Psychology: Patient is engaged during conversation. Normal affect and mood. Does not appear depressed or anxious. Vasc: DP and PT pulses are palpable bilateral. CFT is less than 5 seconds bilateral. Skin temperature is warm to warm proximal to distal bilateral. There is no edema or varicosities noted. Hair growth present. Neuro: Protective sensation is intact to the foot and toes when tested with the 5.07 SWM bilateral. Vibratory sensation is intact at the hallux bilateral. No Significant neurological defecits. Derm: Inspection and palpation performed. Nails 1-5 b/l are normal in length and thickness. Skin is of normal turgor and texture. Hyperkeratosis noted to not present. NO ulcerations, scar (more content not included)... Normal [facility] XR FOOT 3V AP/LAT/OBL RTon 0 12-05-2023 XR FOOT 3V AP/LAT/OBL RT * * *Final Report* * * DATE OF EXAM: Dec 05 2023 10:53AM [id number] - XR FOOT 3V AP/LAT/OBL RT / PROCEDURE REASON: Pain in right foot * * * * Physician Interpretation * * * * EXAMINATION: XR FOOT 3V AP/LAT/OBL RT CLINICAL HISTORY: Right foot pain Technique: XR FOOT 3V AP/LAT/OBL RT -- RIGHT with 3 views on 3 images Comparison: None RESULT: No acute fracture or dislocation. Joint spaces are maintained. Posterior calcaneal spur. IMPRESSION: No acute osseous abnormality Supervisor Die Casting: GARRETT Transcribe Date/Time: Dec 07 2023 4:57P Dictated by : JULI ZAVALA MD This examination was interpreted and the report reviewed and electronically signed by: JULI ZAVALA MD on Dec 07 2023 4:58PM EST [id number] Normal [facility] - Hematology and Cell countson 08-15-2023 HbA1c (Bld) [Mass fraction] 7.4 % 4.2-6.3 [facility] HPV W/GENOTYPE THIN PREPon 1 HPV 16 Ag Ql (Unsp spec) Negative Normal Negative for HPV DNA high risk type 16 by PCR [facility] Comment on above: Order Comment: Speci men Type: FLUID SPECIMEN Ordering Facility: Rajni Valero [facility] Address: [facility] [place] [id number] Performed By: #### H PVHRT #### [facility] CLIA [id number] [address] [place] [address] [place] HPV 18 Ag Ql (Unsp spec) Negative Normal Negative for HPV DNA high risk type 18 by PCR [facility] Comment on above: Order Comment: Speci men Type: FLUID SPECIMEN Ordering Facility: [facility] Address: [address] [place] [address] Performed By: #### H PVHRT #### [facility] CLIA [id number] [address] [place] [address] [place] HPV 31+33+35+39+45+51+52+ 56+58+59+66+68 DNA MANDA+probe Ql (Cvx) Negative for HPV DNA high risk types: 31,33,35,39,45,51,52,56 ,58,59,66,68 by PCR. Normal Negative for HPV DNA high risk types: 31,33,35,39, 45,51,52,56, 58,59,66,68 by PCR. [facility] Comment on above: Order Comment: Speci men Type: FLUID SPECIMEN Ordering Facility: [facility] Address: [address] [place] [address] Performed By: #### H PVHRT #### [facility] CLIA [id number] [address] [place] [address] [place] PAP TESTon 04-18-2023 ADEQUACY Satisfactory for interpretation Normal [facility] Comment on above: Order Comment: Speci men Type: FLUID SPECIMENOrdering Facility: [facility] Address: [address] [place] [address] Performed By: #### L [id number] ####[facility] [id number] [place] [address] [place] CASE REPORT Normal [facility] Comment on above: Order Comment: Speci men Type: FLUID SPECIMENOrdering Facility: [facility] Address: [address] [place] [address] Result Comment: Gyne cologic Cytology Report Case: [id number] Authorizing Provider: Anila Mas NP Collected: 04/18/2023 08:15 AM Ordering Location: [facility] Main Received: 04/21/2023 08:12 AM First Screen: Roxana, Susannah, CT, ASCP Specimen: Pap Test, ThinPrep, Cervix Performed By: #### L [id number] ####[facility] [id number] [address] [address] [place] CLINICAL HISTORY, CYTOLOGY, SKOOG MACHINE OPERATOR Routine Exam Normal [facility] Comment on above: Order Comment: Speci men Type: FLUID SPECIMENOrdering Facility: [facility] Address: [address] [place] [address] Performed By: #### L [id number] ####[facility] [id number] [place] [address] [place] FINAL PERFORMING LAB Normal [facility] Comment on above: Order Comment: Speci men Type: FLUID SPECIMENOrdering Facility: [facility] Address: [address] [place] [address] Result Comment: Tech nical component, jump roll operator screening performed at [facility], [address] [facility] [address] CLIA# [id number] Diagnostic interpretation performed at [facility], [address] [facility] [address] CLIA# [id number] Painter Helper: Kennedy Parks M.D. Performed By: #### L [id number] ####[facility] [id number] [place] [address] [place] HPV REFLEX Yes HPV Normal [facility] Comment on above: Order Comment: Speci men Type: FLUID SPECIMENOrdering Facility: [facility] Address: [address] [place] [address] Performed By: #### L [id number] ####[facility] [id number] [place] [id number] [place] INTERPRETATION, CYTOLOGY, SKOOG MACHINE OPERATOR Normal [facility] Comment on above: Order Comment: Speci men Type: FLUID SPECIMENOrdering Facility: [facility] Address: [address] [place] [address], [place] [address] Result Comment: Nega tive for intraepithelial lesion or malignancy. Performed By: #### L [id number] ####[facility] [id number] [address] [address] [place] LMP 2018 Normal [facility] Comment on above: Order Comment: Speci men Type: FLUID SPECIMENOrdering Facility: [facility] Address: [address] [place] [address], [place] [id number] Performed By: #### L [id number] ####[facility] [id number] [address] [place] PAP DISCLAIMER COMMENT The Pap Smear is a screening test for cervical cancer. False negative results occur with all screening tests, emphasizing the need for rescreening at recommended intervals, and clinical correlation. Normal [facility] Comment on above: Order Comment: Speci men Type: FLUID SPECIMENOrdering Facility: [facility] Address: [address] [place] [address], [place] [address] Performed By: #### L [id number] ####[facility] [id number] [address] [place] 25(OH)D3 [facility] 2022 25-hydroxyvitamin D3 [Mass/Vol] 42.9 ng/mL Normal 31.0-80.0 [facility] Comment on above: Order Comment: Speci men Type: BLOOD SPECIMEN Ordering Facility: [facility] Address: [address] [place] [address], [place] [address] Result Comment: Clas sification of 25 [place] Vitamin D status: Deficiency/Insufficiency: < or = 30 ng/ml. Sufficiency/Optimal Levels: 31-80 ng/mL Toxicity: > 100 ng/mL. Test performed by chemiluminescent immunoassay. Performed By: #### 1 989-3 #### [facility] CLIA [id number] [address] [place] [address] [place] HAV IgM Ser Qlon 04-11-2023 HAV IgM Ql (S) Negative Normal Negative [facility] Comment on above: Order Comment: Speci men Type: BLOOD SPECIMEN Ordering Facility: [facility] Address: [address] [place] [address], [place] [address] Result Comment: No e vidence of recent infection with Hepatitis A virus. Performed By: #### 7 3752-8, 61372-1, 5195-3, 92035-0, 32606-5 #### [facility] CLIA [id number] [address] [place] [address] [place] HBV core IgM Ser Qlon 2022 HBV core IgM Ql (S) Negative Normal Negative [facility] Comment on above: Order Comment: Speci men Type: BLOOD SPECIMEN Ordering Facility: [facility] Address: [address] [place] [address], [place] [address] Result Comment: No e vidence of recent infection with Hepatitis B virus. Should recent infection be suspected, repeat testing may be considered 3-4 weeks after this draw. Performed By: #### 7 3752-8, 69989-7, 5195-3, 75431-1, 82607-2 #### [facility] CLIA [id number] [address] [place] [address] [place] HBV surface Ag Ser Qlon 03-18 HBV surface Ag Ql (S) Negative Normal Negative [facility] Comment on above: Order Comment: Speci men Type: BLOOD SPECIMEN Ordering Facility: [facility] Address: [address] [place] [address], [place] [address] Performed By: #### 7 3752-8, 29862-6, 5195-3, 51819-8, 00937-1 #### [facility] CLIA [id number] [address] [place] [address] [place] HCV Ab Ser Qlon 04-11-2023 HCV Ab Ql (S) Negative Normal Negative [facility] Comment on above: Order Comment: Speci men Type: BLOOD SPECIMEN Ordering Facility: [facility] Address: [address] [place] [address], [place] [address] Result Comment: The result suggests no evidence of active infection with Hepatitis C virus. Should recent infection be suspected, repeat testing may be considered 4-6 weeks after this draw. Performed By: #### 1 6128-1 #### [facility] CLIA [id number] [address] [place] [address] [place] HIV 1+2 Ab IA Qlon 3 HIV 1 and 2 Ab IA.rapid Nom Normal [facility] Comment on above: Order Comment: Speci men Type: BLOOD SPECIMEN Ordering Facility: [facility] Address: [address] [place] [address] Result Comment: Test not indicated. Performed By: #### 7 3752-8, 03533-9, 5195-3, 67209-7, 21703-6 #### [facility] CLIA [id number] [address] [place] [address] [place] HIV 1+2 Ab+HIV1 p24 Ag IA Ql Non-Reactive Normal Nonreactive [facility] Comment on above: Order Comment: Speci men Type: BLOOD SPECIMEN Ordering Facility: [facility] Address: [address] [place] [address] Performed By: #### 7 3752-8, 83215-0, 5195-3, 63862-5, 62596-7 #### [facility] CLIA [id number] [address] [place] [address] [place] HIV immunoassay testing algorithm interpretation (S/P/Bld) [Interp] Normal [facility] Comment on above: Order Comment: Speci men Type: BLOOD SPECIMEN Ordering Facility: [facility] Address: [address] [place] [address], [place] [address] Result Comment: No e vidence of HIV-1 or HIV-2 infection. Should recent infection be suspected, repeat testing may be considered 2-3 weeks after this draw. [place] Rev. Code 3701.243(E): This information has been disclosed to you from confidential records protected from disclosure by state law. ???You shall make no further disclosure of this information without the specific, written, and informed release of the individual to whom it pertains or as otherwise permitted by state law. A general authorization for the release of medical or other information is not sufficient for the purpose of the release of HIV test results or diagnoses. Performed By: #### 7 3752-8, 71775-1, 5195-3, 51063-1, 80514-1 #### [facility] CLIA [id number] [address] [place] [address] [place] Reagin and Treponema pallidu m IgG and IgM [Interp]on 04-11-2023 T. pallidum IgG+IgM IA Ql (S) Non-Reactive Normal Nonreactive [facility] Comment on above: Order Comment: Speci men Type: BLOOD SPECIMEN Ordering Facility: [facility] Address: [address] [place] [address], [place] [address] Performed By: #### 7 3752-8, 38001-2, 5195-3, 76108-3, 36586-3 #### [facility] CLIA [id number] [address] [place] [address] [place] Reagin+T pallidum IgG+IgM Se rPl-Impon 04-11-2023 Reagin and Treponema pallidum IgG and IgM [Interp] Cannot exclude recent Treponemal infection if specimen collected within 7-10 days after appearance of suspect lesions or 2-3 weeks after an exposure. Clinical correlation is required. Normal [facility] Comment on above: Order Comment: Speci men Type: BLOOD SPECIMEN Ordering Facility: [facility] Address: [address] [place] [address], [place] [address] Performed By: #### 7 3752-8, 23707-0, 5195-3, 31598-5, 82574-8 #### [facility] CLIA [id number] [address] [place], [place] [id number] [place] Basophil percentageOrdered B y: Dr. Lubin on 11-21-2022 Bilirubin [Mass/Vol] 0.30 mg/dL 0.20-1.00 [facility] Comment on above: For patients on eltr ombopag therapy, use of Dimension [place] TBIL is not recommended. Chloride [Moles/Vol] 103 mmol/L 98-107 [facility] Cholesterol [Mass/Vol] 173 mg/dL <200 [facility] Comment on above: <200 mg/dL Desirable 200-240 mg/dL Borderline >240 mg/dL High Risk Glucose [Mass/Vol] 154 mg/dL 74-106 [facility] Comment on above: Fasting Glucose resu lt greater than or equal to 126 mg/dL suggests DIABETES MELLITUS per A.D.A. criteria. Potassium [Moles/Vol] 4.1 mmol/L 3.5-5.1 [facility] Protein [Mass/Vol] 8.1 g/dL 6.4-8.2 [facility] Sodium [Moles/Vol] 135 mmol/L 136-145 [facility] Triglyceride [Mass/Vol] 123 mg/dL <199 [facility] Comment on above: The drugs N-Acetylcy steine and Metamizole may falsely depress this assay.Serum Triglycerides Reference Interval Normal <150 mg/dL Borderline high 150 - 199 mg/dL High 200 - 499 mg/dL Very High > or = 500 mg/dL Laboratory - Chemistry and C hemistry - challengeOrdered By: Dr. Lubin on 11-21-2022 ALP [Catalytic activity/Vol] 125 U/L 45-117 [facility] ALT [Catalytic activity/Vol] 28 U/L 13-56 [facility] CO2 [Moles/Vol] 27.0 mmol/L 21.0-32.0 [facility] Free T4 [Mass/Vol] 1.17 ng/dL 0.76-1.46 [facility] Globulin (S) [Mass/Vol] 3.9 g/dL 2.2-4.2 [facility] Urea nitrogen/Creatinine [Mass ratio] 16.4 mg/mg 10-20 [facility] No Panel InformationOrdered By: Dr. Lubin on 05-08-2023 Estimated GFR (MDRD) Amer 75 mL/min >60 [facility] Comment on above: GFR Calc Estimated GFR (MDRD) Non-Af Amer 62 mL/min >60 [facility] Comment on above: Non- GFR Calc Thyroid Stimulating Hormone (TSH) 2.86 uIU/mL 0.358-3.74 [facility] Urine Microalbumin/Creatini ne Ratio 8.8 mg/g CRE <30 [facility] Vitamin D 25-Hydroxy 59.3 ng/mL [facility] Comment on above: Vitamin D 25(OH) Sta tus Range Deficiency <20 ng/mL (50nmol/L) Insufficiency 20 - 30 ng/mL (50 - 75 nmol/L) Sufficiency 30 - 100 ng/mL (75 - 250 nmol/L) Toxicity >100 ng/mL (>250 nmol/L) Serum or plasma albumin bryce urement (mass/volume)Ordered By: Dr. Lubin on 11-21-2022 Albumin [Mass/Vol] 4.2 g/dL 3.2-5.0 [facility] Serum or plasma albumin/glob ulin mass ratioOrdered By: Dr. Lubin on 11-21-2022 Albumin/Globulin [Mass ratio] 1.1 {ratio} 0.9-2.4 [facility] Serum or plasma calcium bryce urement (mass/volume)Ordered By: Dr. Lubin on 11-21-2022 Calcium [Mass/Vol] 10.5 mg/dL 8.5-10.1 [facility] Serum or plasma cholesterol in HDL measurement (mass/volume)Ordered By: Dr. Lubin on 11-21-2022 Cholesterol in HDL [Mass/Vol] 39 mg/dL >40 [facility] Comment on above: The drugs N-Acetylcy steine and Metamizole may falsely depress this assay. Reference Range HDL <40 mg/dL Low HDL Cholesterol HDL >or= 60 mg/dL High HDL Cholesterol Serum or plasma cholesterol in VLDL measurement (mass/volume)Ordered By: Dr. Lubin on 11-21-2022 Cholesterol in VLDL [Mass/Vol] 25 mg/dL 5-40 [facility] Serum or plasma creatinine m easurement (mass/volume)Ordered By: Dr. Lubin on 11-21-2022 Creatinine [Mass/Vol] 0.97 mg/dL 0.55-1.02 [facility] Comment on above: The validity of the calculated GFR & GFRAA in patients over 70 years has not been determined. Clinical correlation is essential. Serum or plasma low density lipoprotein (LDL) cholesterol measurement (mass/volume)Ordered By: Dr. Lubin on 11-21-2022 Cholesterol in LDL [Mass/Vol] 109 mg/dL 0-130 [facility] Serum or plasma urea nitroge n measurement (mass/volume)Ordered By: Dr. Lubin on 11-21-2022 Urea nitrogen [Mass/Vol] 16 mg/dL 7-18 [facility] Thin prep Papanicolaou smear with manual screeningOrdered By: Dr. Lubin on 11-21-2022 Thin prep Papanicolaou smear with manual screening 21 U/L 15-37 [facility] Thin prep Papanicolaou smear with manual screening 5 5-15 [facility] Thin prep Papanicolaou smear with manual screening 13.7 mg/L NO RANGE EST. [facility] Urine creatinine measurement (mass/volume)Ordered By: Dr. Lubin on 11-21-2022 Creatinine (U) [Mass/Vol] 155.00 mg/dL NO RANGE EST. [facility] - Hematology and Cell countson 11-01-2022 HbA1c (Bld) [Mass fraction] 7.8 % 4.2-6.3 [facility] Absolute lymphocyte counton 11-30-2021 Lymphocytes Auto (Unsp spec) [#/Vol] 1.55 10*3/uL 0.83-4.51 [facility] Work Phone: Basophil percentageon 2021 Basophils/100 WBC (Bld) 0.7 % 0-1 [facility] Work Phone: Bilirubin [Mass/Vol] 0.30 mg/dL 0.20-1.00 [facility] Work Phone: Comment on above: For patients on eltr ombopag therapy, use of Dimension [place] TBIL is not recommended. Chloride [Moles/Vol] 106 mmol/L 98-107 [facility] Work Phone: Cholesterol [Mass/Vol] 148 mg/dL <200 [facility] Work Phone: Comment on above: <200 mg/dL Desirable 200-240 mg/dL Borderline >240 mg/dL High Risk Eosinophils/100 WBC (Bld) 2.7 % 0-5 [facility] Work Phone: Glucose [Mass/Vol] 269 mg/dL 74-106 [facility] Work Phone: Comment on above: Glucose result great er than or equal to 200 mg/dLsuggests DIABETES MELLITUS per A.D.A. criteria. Neutrophils (Bld) [#/Vol] 7.5 10*3/uL 2.0-7.7 [facility] Work Phone: Neutrophils/100 WBC (Bld) 73.3 % 47-70 [facility] Work Phone: Potassium [Moles/Vol] 4.2 mmol/L 3.5-5.1 [facility] Work Phone: Protein [Mass/Vol] 7.3 g/dL 6.4-8.2 [facility] Work Phone: Sodium [Moles/Vol] 140 mmol/L 136-145 [facility] Work Phone: Triglyceride [Mass/Vol] 255 mg/dL [facility] Work Phone: Comment on above: The drugs N-Acetylcy steine and Metamizole may falsely depress this assay.Serum Triglycerides Reference Interval Normal <150 mg/dL Borderline high 150 - 199 mg/dL High 200 - 499 mg/dL Very High > or = 500 mg/dL WBC (Bld) [#/Vol] 10.2 10*3/uL 4.4-11.0 [facility] Work Phone: Blood erythrocytes count (nu mber/volume)on 11-30-2021 RBC (Bld) [#/Vol] 4.30 10*6/uL 4.2-5.4 [facility] Work Phone: Blood hemoglobin measurement (mass/volume)on 11-30-2021 Hemoglobin (Bld) [Mass/Vol] 12.9 g/dL 12.0-15.0 [facility] Work Phone: Blood lymphocytes/100 leukoc yteson 11-30-2021 Lymphocytes/100 WBC (Bld) 15.2 % 19-41 [facility] Work Phone: Blood monocytes/100 leukocyt eson 11-30-2021 Monocytes/100 WBC (Bld) 7.8 % 0-10 [facility] Work Phone: Blood platelet mean volumeon 11-30-2021 Platelet mean volume (Bld) [Entitic vol] 10.9 fL 6.2-12.0 [facility] Work Phone: Determination of erythrocyte mean corpuscular volume (MCV)on 11-30-2021 MCV (RBC) [Entitic vol] 93.7 fL 81-99 [facility] Work Phone: Hematocrit Auto (Bld) [Volum e fraction]on 11-30-2021 Hematocrit (Bld) [Volume fraction] 40.3 % 37-47 [facility] Work Phone: Laboratory - Chemistry and C hemistry - challengeon 11-30-2021 ALP [Catalytic activity/Vol] 99 U/L 45-117 [facility] Work Phone: ALT [Catalytic activity/Vol] 30 U/L 13-56 [facility] Work Phone: CO2 [Moles/Vol] 29.0 mmol/L 21.0-32.0 [facility] Work Phone: Cobalamin (Vitamin B12) [Mass/Vol] 561 pg/mL 211-911 [facility] Work Phone: Free T4 [Mass/Vol] 1.16 ng/dL 0.76-1.46 [facility] Work Phone: Globulin (S) [Mass/Vol] 3.5 g/dL 2.2-4.2 [facility] Work Phone: Urea nitrogen/Creatinine [Mass ratio] 14.5 mg/mg 10-20 [facility] Work Phone: Laboratory - Hematology and Cell countson 11-30-2021 Erythrocyte distribution width (RBC) [Entitic vol] 43.3 fL 35.1-43.9 [facility] Work Phone: Erythrocyte distribution width (RBC) [Ratio] 12.5 % 11.6-14.6 [facility] Work Phone: Immature granulocytes/100 WBC (Bld) 0.300 % 0.0-0.9 [facility] Work Phone: Comment on above: IG% - Immature Granu locytes (promyelocytes, myelocytes and metamyelocytes) > 1% indicates that a LEFT SHIFT is Present. MCH (RBC) [Entitic mass] 30.0 pg 27.0-32.0 [facility] Work Phone: Nucleated RBC/100 WBC (Bld) [Ratio] 0 % 0-5 [facility] Work Phone: HbA1c (Bld) [Mass fraction] 7.4 % [facility] Work Phone: MCHC Auto (RBC) [Mass/Vol]on 11-30-2021 MCHC (RBC) [Mass/Vol] 32.0 g/dL 32-36 [facility] Work Phone: No Panel Informationon 11-30 Estimated GFR (MDRD) Amer 83 mL/min >60 [facility] Work Phone: Comment on above: GFR Calc Estimated GFR (MDRD) Non-Af Amer 68 mL/min >60 [facility] Work Phone: Comment on above: Non- GFR Calc Thyroid Stimulating Hormone (TSH) 1.37 uIU/mL 0.358-3.74 [facility] Work Phone: Urine Microalbumin/Creatini ne Ratio 8.1 mg/g CRE <30 [facility] Work Phone: Vitamin D 25-Hydroxy 49.3 ng/mL [facility] Work Phone: Comment on above: Vitamin D 25(OH) Sta tus Range Deficiency <20 ng/mL (50nmol/L) Insufficiency 20 - 30 ng/mL (50 - 75 nmol/L) Sufficiency 30 - 100 ng/mL (75 - 250 nmol/L) Toxicity >100 ng/mL (>250 nmol/L) Platelets bldon 11-30-2021 Platelets (Bld) [#/Vol] 277 10*3/uL 150-450 [facility] Work Phone: Serum or plasma albumin bryce urement (mass/volume)on 11-30-2021 Albumin [Mass/Vol] 3.8 g/dL 3.2-5.0 [facility] Work Phone: Serum or plasma albumin/glob ulin mass ratioon 11-30-2021 Albumin/Globulin [Mass ratio] 1.1 {ratio} 0.9-2.4 [facility] Work Phone: Serum or plasma calcium bryce urement (mass/volume)on 11-30-2021 Calcium [Mass/Vol] 9.8 mg/dL 8.5-10.1 [facility] Work Phone: Serum or plasma cholesterol in HDL measurement (mass/volume)on 11-30-2021 Cholesterol in HDL [Mass/Vol] 35 mg/dL [facility] Work Phone: Comment on above: The drugs N-Acetylcy steine and Metamizole may falsely depress this assay. Reference Range HDL <40 mg/dL Low HDL Cholesterol HDL >or= 60 mg/dL High HDL Cholesterol Serum or plasma cholesterol in VLDL measurement (mass/volume)on 11-30-2021 Cholesterol in VLDL [Mass/Vol] 51 mg/dL 5-40 [facility] Work Phone: Serum or plasma creatinine m easurement (mass/volume)on 11-30-2021 Creatinine [Mass/Vol] 0.90 mg/dL 0.55-1.02 [facility] Work Phone: Comment on above: The validity of the calculated GFR & GFRAA in patients over 70 years has not been determined. Clinical correlation is essential. Serum or plasma ferritin velma surement (mass/volume)on 11-30-2021 Ferritin [Mass/Vol] 74 ng/mL 8-252 [facility] Work Phone: Serum or plasma low density lipoprotein (LDL) cholesterol measurement (mass/volume)on 11-30-2021 Cholesterol in LDL [Mass/Vol] 62 mg/dL 0-130 [facility] Work Phone: Serum or plasma urea nitroge n measurement (mass/volume)on 11-30-2021 Urea nitrogen [Mass/Vol] 13 mg/dL 7-18 [facility] Work Phone: Thin prep Papanicolaou smear with manual screeningon 11-30-2021 Thin prep Papanicolaou smear with manual screening 20 U/L 15-37 [facility] Work Phone: Thin prep Papanicolaou smear with manual screening 5 5-15 [facility] Work Phone: Thin prep Papanicolaou smear with manual screening 8.8 mg/L NO RANGE EST. [facility] Work Phone: Urine creatinine measurement (mass/volume)on 11-30-2021 Creatinine (U) [Mass/Vol] 109.00 mg/dL NO RANGE EST. [facility] Work Phone: CBC W/AUTO DIFF WBC (55177)O rdered By: Corrosion Technician on 11-22-2019 Basophils (Bld) [#/Vol] 0.1 {x10E3/uL} Normal 0.0-0.2 [facility] Work Phone: Comment on above: Test(s) 271367-NBO-V ; 485370-VPO-C; 404602-PCT-A; 925554-Ggfnpbfpijkni; 882579-Rvtihvoyfgl, Total; 596622-AIS-V (Total);856291-Kmpat LDL-P; 547096-JXB Size; 858458-BQ-FH Scorewas developed and its performance characteristics determinedby [employer]. It has not been cleared or approved by the Foodand Drug Administration.PATIENT WAS FASTINGPERFORMED BY: [address] [id number] BY: [facility] of AmericaSaint Barnabas Medical CenterXbjabu0591 [facility] [id number] Basophils (Bld) [#/Vol] 0.1 10*3/uL Normal 0.0-0.2 [facility]; [facility] Work Phone: Comment on above: Test(s) 309848-JSY-M ; 526973-PEC-D; 315575-SVX-C; 463743-Asnqbcdopxkve; 624475-Waqxrvkykpn, Total; 612460-YMY-S (Total);251682-Wvyfn LDL-P; 377203-QDR Size; 187255-OF-[place] Scorewas developed and its performance characteristics determinedby [employer]. It has not been cleared or approved by the Foodand Drug Administration.PATIENT WAS FASTINGPERFORMED BY: [employer] [address] [id number] BY: [employer]70 [facility] [id number] Basophils/100 WBC (Bld) 1 % Normal [facility] Work Phone: Comment on above: Test(s) 883103-DJT-W ; 928896-ZGS-H; 240177-FNV-W; 078119-Ifkoaypnaexii; 582766-Mwnzoyxqhxm, Total; 004207-XGA-X (Total);625252-Ubxkj LDL-P; 260898-LKX Size; 294641-WT-HQ Scorewas developed and its performance characteristics determinedby [employer]. It has not been cleared or approved by the Foodand Drug Administration.PATIENT WAS FASTINGPERFORMED BY: [employer] [address] [id number] BY: [employer] Gxsxek3616 [facility] [id number] Eosinophils (Bld) [#/Vol] 0.3 {x10E3/uL} Normal 0.0-0.4 [facility] Work Phone: Comment on above: Test(s) 025255-VWU-A ; 266904-UCC-F; 753087-IJH-U; 011317-Cfklwqaxwsilx; 215379-Hdjpvqhpmbh, Total; 969043-KBV-S (Total);378392-Mggmo LDL-P; 548686-PYG Size; 624413-SM-HF Scorewas developed and its performance characteristics determinedby [employer]. It has not been cleared or approved by the Foodand Drug Administration.PATIENT WAS FASTINGPERFORMED BY: [employer] [id number] BY: [employer]70 [facility] [id number] Eosinophils (Bld) [#/Vol] 0.3 10*3/uL Normal 0.0-0.4 [facility]; [facility] Work Phone: Comment on above: Test(s) 760635-XQQ-C ; 113540-ZSR-G; 312775-YXV-N; 493267-Zaqwlxcneemrk; 699937-Woggxpdsbhf, Total; 994439-OFJ-Y (Total);380179-Lrwye LDL-P; 747589-LMN Size; 818109-CA-PO Scorewas developed and its performance characteristics determinedby [employer]. It has not been cleared or approved by the Foodand Drug Administration.PATIENT WAS FASTINGPERFORMED BY: [employer] [address] [id number] BY: Cydan6370 [facility] [id number] Eosinophils/100 WBC (Bld) 3 % Normal [facility] Work Phone: Comment on above: Test(s) 707925-DFW-R ; 844541-HTC-D; 494588-DFF-T; 658308-Essdbmlaoxnuf; 166719-Iwnfcaiijpc, Total; 344081-EDE-J (Total);046168-Ivoyu LDL-P; 927708-JGW Size; 906520-ZY-ZF Scorewas developed and its performance characteristics determinedby [employer]. It has not been cleared or approved by the Foodand Drug Administration.PATIENT WAS FASTINGPERFORMED BY: [facility] [address] [id number] BY: Cydan6370 [facility] [id number] Erythrocyte distribution width (RBC) [Ratio] 11.9 % Normal 11.7-15.4 [facility] Work Phone: Comment on above: Test(s) 974410-FWF-K ; 380002-PAL-A; 899345-NJD-Z; 529134-Mxqhtyrvemzfb; 072471-Mpzeycmuccf, Total; 613379-RGY-B (Total);943883-Ioelj LDL-P; 667540-DWW Size; 155763-RW-FB Scorewas developed and its performance characteristics determinedby [employer]. It has not been cleared or approved by the Foodand Drug Administration.PATIENT WAS FASTINGPERFORMED BY: [employer] [address] [id number] BY: Cydan6370 [facility] [id number] Hematocrit (Bld) [Volume fraction] 42.0 % Normal 34.0-46.6 [facility] Work Phone: Comment on above: Test(s) 909882-NLE-W ; 055460-WOW-V; 119791-VSV-F; 198843-Kkaojrcxrhvtq; 299378-Bmoodetwlkx, Total; 803314-UST-Q (Total);113693-Tmbjc LDL-P; 562362-BQH Size; 690790-MN-CI Scorewas developed and its performance characteristics determinedby [employer]. It has not been cleared or approved by the Foodand Drug Administration.PATIENT WAS FASTINGPERFORMED BY: [facility] [address] [id number] BY: Cydan6370 [facility] [id number] Hemoglobin (Bld) [Mass/Vol] 13.7 g/dL Normal 11.1-15.9 [facility] Work Phone: Comment on above: Test(s) 747879-MMY-N ; 939243-XIF-D; 831879-FIZ-A; 039139-Lcqmfpukvniuy; 205243-Bixrkoivwuw, Total; 230901-NWS-G (Total);399543-Sexhc LDL-P; 868830-VRM Size; 747173-AG-KM Scorewas developed and its performance characteristics determinedby [employer]. It has not been cleared or approved by the Foodand Drug Administration.PATIENT WAS FASTINGPERFORMED BY: [employer] [id number] BY: [employer] [facility] [employer] [id number] Immature granulocytes (Bld) [#/Vol] 0.0 {x10E3/uL} Normal 0.0-0.1 [facility] Work Phone: Comment on above: Test(s) 213821-KWE-R ; 877489-JSG-K; 666297-NZG-E; 988154-Pwwfgzaicynmi; 264278-Vlcgkgqpuop, Total; 247339-USV-E (Total);418450-Zejpk LDL-P; 236274-JUV Size; 070769-MA-CW Scorewas developed and its performance characteristics determinedby [employer]. It has not been cleared or approved by the Foodand Drug Administration.PATIENT WAS FASTINGPERFORMED BY: [employer] [facility] [employer] [id number] BY: [facility] of AmericaSaint Barnabas Medical CenterCwtuut5365 [facility] [id number] Immature granulocytes (Bld) [#/Vol] 0.0 10*3/uL Normal 0.0-0.1 [facility]; [facility] Work Phone: Comment on above: Test(s) 590987-PRM-Z ; 987911-BTU-N; 529509-OKX-C; 829945-Uhnvsdtsrntna; 462382-Qedgokqqdcq, Total; 716863-LSL-A (Total);250643-Cmozt LDL-P; 855795-TVF Size; 887429-CP-YF Scorewas developed and its performance characteristics determinedby [employer]. It has not been cleared or approved by the Foodand Drug Administration.PATIENT WAS FASTINGPERFORMED BY: [employer] [facility] [employer] [id number] BY: [facility] of AmericaSaint Barnabas Medical CenterUnqhtq3646 [facility] [id number] Immature granulocytes/100 WBC (Bld) 0 % Normal [facility] Work Phone: Comment on above: Test(s) 080911-BEV-W ; 788402-VWF-M; 986391-ERV-X; 335602-Baqopyizjmpfb; 151236-Tkixultrpyg, Total; 633610-HFL-J (Total);878646-Kokil LDL-P; 989020-QQZ Size; 725176-IJ-IZ Scorewas developed and its performance characteristics determinedby [employer]. It has not been cleared or approved by the Foodand Drug Administration.PATIENT WAS FASTINGPERFORMED BY: [employer] [facility] [employer] [id number] BY: [employer] Dwskei3035 [facility] [id number] Lymphocytes (Bld) [#/Vol] 2.3 {x10E3/uL} Normal 0.7-3.1 [facility] Work Phone: Comment on above: Test(s) 736876-VTF-W ; 349331-WLU-A; 407139-SRE-S; 426751-Kyvqlqbrmpxte; 146134-Ekuwhqrktdm, Total; 125106-VJN-D (Total);168445-Iyqrn LDL-P; 916990-GDZ Size; 571438-AD-GX Scorewas developed and its performance characteristics determinedby [employer]. It has not been cleared or approved by the Foodand Drug Administration.PATIENT WAS FASTINGPERFORMED BY: [employer] [id number] BY: [facility] of AmericaSaint Barnabas Medical CenterLrowfw2324 [facility] [id number] Lymphocytes (Bld) [#/Vol] 2.3 10*3/uL Normal 0.7-3.1 [facility]; [facility] Work Phone: Comment on above: Test(s) 225354-GTZ-D ; 636500-JTU-A; 032183-HMP-E; 614349-Gwdvwvafofkta; 299255-Xiqyprggikn, Total; 450442-LMV-C (Total);301763-Gcxvn LDL-P; 212562-WJI Size; 662207-DJ-WJ Scorewas developed and its performance characteristics determinedby [employer]. It has not been cleared or approved by the Foodand Drug Administration.PATIENT WAS FASTINGPERFORMED BY: [employer] [address] [id number] BY: [employer]70 [facility] [id number] Lymphocytes/100 WBC (Bld) 25 % Normal [facility] Work Phone: Comment on above: Test(s) 380501-ALZ-C ; 626654-YCF-P; 262149-DGY-M; 394934-Aprzjglewkaix; 449788-Nrynbywktzm, Total; 326733-VHR-I (Total);605966-Kxrvw LDL-P; 975969-XBA Size; 529207-OW-TK Scorewas developed and its performance characteristics determinedby [employer]. It has not been cleared or approved by the Foodand Drug Administration.PATIENT WAS FASTINGPERFORMED BY: [employer] [address] [id number] BY: [employer] Swaorb8304 [facility] [id number] MCH (RBC) [Entitic mass] 29.8 pg Normal 26.6-33.0 [facility] Work Phone: Comment on above: Test(s) 455709-BEV-T ; 818017-YUP-Z; 698527-DDN-U; 919393-Ehdrlejrpabrp; 359195-Azbyatjgnza, Total; 616909-MWN-Q (Total);812377-Ppjoz LDL-P; 841441-JOU Size; 268223-NR-NT Scorewas developed and its performance characteristics determinedby [employer]. It has not been cleared or approved by the Foodand Drug Administration.PATIENT WAS FASTINGPERFORMED BY: [facility] [address] [id number] BY: Geliyoo6370 [facility] [id number] MCHC (RBC) [Mass/Vol] 32.6 g/dL Normal 31.5-35.7 [facility] Work Phone: Comment on above: Test(s) 836846-GRI-G ; 046136-WOQ-H; 358522-WON-V; 921882-Hhhpzrqhwqvkl; 615249-Ssfdtwgeoqy, Total; 556853-AHH-G (Total);694031-Urtzm LDL-P; 057147-QRJ Size; 390343-RB-QW Scorewas developed and its performance characteristics determinedby [employer]. It has not been cleared or approved by the Foodand Drug Administration.PATIENT WAS FASTINGPERFORMED BY: [employer] [id number] BY: Cydan6370 [facility] [id number] MCV (RBC) [Entitic vol] 91 fL Normal 79-97 [facility] Work Phone: Comment on above: Test(s) 207823-VJM-T ; 023166-XOY-E; 254258-MGA-H; 323974-Uzzlhlinwhewb; 850128-Lhppsiamtqs, Total; 592388-LZI-L (Total);436618-Eddxy LDL-P; 570978-YUN Size; 164848-EE-MZ Scorewas developed and its performance characteristics determinedby [employer]. It has not been cleared or approved by the Foodand Drug Administration.PATIENT WAS FASTINGPERFORMED BY: [employer] [address] [id number] BY: Cydan6370 [facility] [id number] Monocytes (Bld) [#/Vol] 0.7 {x10E3/uL} Normal 0.1-0.9 [facility] Work Phone: Comment on above: Test(s) 366095-NRA-Z ; 829588-RWK-S; 100881-QUC-B; 838380-Mytxcpoeyvlfs; 118341-Luyxnewqtrl, Total; 698420-EXE-P (Total);293903-Xebye LDL-P; 173129-MWG Size; 187479-ZW-KC Scorewas developed and its performance characteristics determinedby [employer]. It has not been cleared or approved by the Foodand Drug Administration.PATIENT WAS FASTINGPERFORMED BY: [employer] [address] [id number] BY: [employer] Mluklu9783 [facility] [id number] Monocytes (Bld) [#/Vol] 0.7 10*3/uL Normal 0.1-0.9 [facility]; [facility] Work Phone: Comment on above: Test(s) 961164-BIY-P ; 101978-HQM-O; 317297-PWG-D; 445939-Vgmcuypxaesci; 026938-Azescrxapcd, Total; 917623-CMQ-T (Total);978023-Nkmwo LDL-P; 743696-ERB Size; 977979-WU-RM Scorewas developed and its performance characteristics determinedby [employer]. It has not been cleared or approved by the Foodand Drug Administration.PATIENT WAS FASTINGPERFORMED BY: [employer] [address] [id number] BY: [employer] Lxipda9413 [facility] [id number] Monocytes/100 WBC (Bld) 7 % Normal [facility] Work Phone: Comment on above: Test(s) 545240-QZV-K ; 769639-EYZ-K; 581410-NLA-G; 494442-Vaudauurhpbur; 830893-Qexhpuhlise, Total; 704605-TWK-Y (Total);841768-Cunpk LDL-P; 330815-JRK Size; 064432-OT-XM Scorewas developed and its performance characteristics determinedby [employer]. It has not been cleared or approved by the Foodand Drug Administration.PATIENT WAS FASTINGPERFORMED BY: [employer] [address] [id number] BY: Cydan6370 [facility] [id number] Neutrophils (Bld) [#/Vol] 5.7 {x10E3/uL} Normal 1.4-7.0 [facility] Work Phone: Comment on above: Test(s) 362549-QSP-G ; 514922-IDX-I; 643106-MQP-V; 039778-Bbodoopkkaqvv; 040344-Nascqvnkmwl, Total; 457801-QCI-Z (Total);387432-Lipvk LDL-P; 624175-ZIZ Size; 526075-XZ-SW Scorewas developed and its performance characteristics determinedby [employer]. It has not been cleared or approved by the Foodand Drug Administration.PATIENT WAS FASTINGPERFORMED BY: [employer] [address] [id number] BY: Cydan6370 [facility] [id number] Neutrophils (Bld) [#/Vol] 5.7 10*3/uL Normal 1.4-7.0 [facility]; [facility] Work Phone: Comment on above: Test(s) 460260-ZHO-D ; 061605-IYL-B; 966493-YCJ-F; 844199-Tmemkrxyckeqn; 959538-Ofogmmbnaoe, Total; 862789-OBS-C (Total);041549-Bbaos LDL-P; 743921-PAL Size; 266906-UP-NH Scorewas developed and its performance characteristics determinedby [employer]. It has not been cleared or approved by the Foodand Drug Administration.PATIENT WAS FASTINGPERFORMED BY: [employer] [address] [id number] BY: [employer]70 [facility] [id number] Neutrophils/100 WBC (Bld) 64 % Normal [facility] Work Phone: Comment on above: Test(s) 209622-FVH-Y ; 641854-OKT-A; 670575-TBF-C; 137714-Bdpezmrabdjev; 039585-Aqitfcdlgky, Total; 886724-HVP-Y (Total);420773-Tsylf LDL-P; 942333-ZBY Size; 925640-JJ-TD Scorewas developed and its performance characteristics determinedby [employer]. It has not been cleared or approved by the Foodand Drug Administration.PATIENT WAS FASTINGPERFORMED BY: [facility] [address] [id number] BY: [employer] Veigap4444 [facility] [id number] Platelets (Bld) [#/Vol] 261 {x10E3/uL} Normal 150-450 [facility] Work Phone: Comment on above: Test(s) 839936-GCY-O ; 296299-JND-V; 582723-NEO-R; 475953-Jpfiqkjkgmuzk; 878522-Powtjdelgsq, Total; 890445-HLB-R (Total);823764-Mosad LDL-P; 446748-NJB Size; 752243-NE-TY Scorewas developed and its performance characteristics determinedby [employer]. It has not been cleared or approved by the Foodand Drug Administration.PATIENT WAS FASTINGPERFORMED BY: [employer] [address] [id number] BY: [employer] Sihbzm9043 [facility] [id number] Platelets (Bld) [#/Vol] 261 10*3/uL Normal 150-450 [facility]; [facility] Work Phone: Comment on above: Test(s) 700929-FUG-E ; 243478-ZJL-B; 582101-VEK-U; 855073-Avheypsifuzbd; 159291-Otlcdteyhmu, Total; 153347-WJK-T (Total);146109-Mdnwl LDL-P; 244769-BTP Size; 731253-QR-BS Scorewas developed and its performance characteristics determinedby [employer]. It has not been cleared or approved by the Foodand Drug Administration.PATIENT WAS FASTINGPERFORMED BY: [employer] [address] [id number] BY: Cydan6370 [facility] [id number] RBC (Bld) [#/Vol] 4.60 {x10E6/uL} Normal 3.77-5.28 [facility] Work Phone: Comment on above: Test(s) 724700-DYP-L ; 269519-WUX-Q; 588412-IRL-Q; 045943-Aqeazsruvbhsm; 901399-Xvsimchonza, Total; 141841-FXW-L (Total);821448-Hhdtc LDL-P; 129225-KRA Size; 358766-UY-RX Scorewas developed and its performance characteristics determinedby [employer]. It has not been cleared or approved by the Foodand Drug Administration.PATIENT WAS FASTINGPERFORMED BY: [employer] [address] [id number] BY: Cydan6370 [facility] [id number] RBC (Bld) [#/Vol] 4.60 10*6/uL Normal 3.77-5.28 [facility]; [facility] Work Phone: Comment on above: Test(s) 046661-SAF-Q ; 448348-RPK-Y; 084320-GQB-T; 860918-Desyrqktdzkrr; 871418-Wwwhjudwgkd, Total; 160824-VKY-C (Total);053441-Gndhe LDL-P; 534801-GKJ Size; 117434-KE-XA Scorewas developed and its performance characteristics determinedby [employer]. It has not been cleared or approved by the Foodand Drug Administration.PATIENT WAS FASTINGPERFORMED BY: [employer] [address] [id number] BY: Cydan6370 [facility] [id number] WBC (Bld) [#/Vol] 9.0 {x10E3/uL} Normal 3.4-10.8 [facility] Work Phone: Comment on above: Test(s) 334505-YUA-W ; 659607-ZKO-L; 952512-NQW-K; 695036-Lttyqqkdlynkq; 897124-Byourpndjfv, Total; 752472-ITV-Z (Total);365884-Eykua LDL-P; 911154-LFV Size; 609268-DO-LC Scorewas developed and its performance characteristics determinedby [employer]. It has not been cleared or approved by the Foodand Drug Administration.PATIENT WAS FASTINGPERFORMED BY: [employer] [address] [id number] BY: [employer]70 [place] [facility] [id number] WBC (Bld) [#/Vol] 9.0 10*3/uL Normal 3.4-10.8 [facility] Internal Medicine; [facility] Internal Medicine Work Phone: Comment on above: Test(s) 622815-GAW-X ; 872116-GLR-Z; 755337-LWJ-Q; 473568-Djmjklnecteza; 329575-Fwvzrwsjyoh, Total; 384982-OAT-X (Total);604276-Pkxej LDL-P; 842751-GGF Size; 875592-XU-LW Scorewas developed and its performance characteristics determinedby [employer]. It has not been cleared or approved by the Foodand Drug Administration.PATIENT WAS FASTINGPERFORMED BY: [facility] [address] [id number] BY: Cydan6370 [facility] [id number] METABOLIC PANEL, COMPREHENSI VE (10718)Ordered By: Corrosion Technician on 11-22-2019 Albumin [Mass/Vol] 4.5 g/dL Normal 3.8-4.9 [facility] Internal Medicine Work Phone: Comment on above: Test(s) 642754-QDA-I ; 026804-VLU-B; 274371-AZD-I; 539057-Lhnpocmufjofd; 465383-Pkvahigcthm, Total; 303728-ADN-U (Total);386893-Gbmro LDL-P; 388463-AHS Size; 369707-EK-DC Scorewas developed and its performance characteristics determinedby [employer]. It has not been cleared or approved by the Foodand Drug Administration.PATIENT WAS FASTINGPERFORMED BY: [facility] [employer] [facility] [employer] [id number] BY: [facility]imbursements of AmericaSaint Barnabas Medical CenterBusyjd6397 [facility] [id number] Albumin/Globulin [Mass ratio] 1.9 {ratio} Normal 1.2-2.2 [facility] Work Phone: Comment on above: Test(s) 425527-ACI-A ; 731737-QCU-K; 859893-VUI-P; 101250-Nlutuxbgpjknp; 858370-Cyhzelsfizv, Total; 105638-LNN-R (Total);566416-Fskzy LDL-P; 757707-ZVX Size; 827005-LW-XM Scorewas developed and its performance characteristics determinedby [employer]. It has not been cleared or approved by the Foodand Drug Administration.PATIENT WAS FASTINGPERFORMED BY: [facility] [address] [id number] BY: [facility] of AmericaAdvanced Care Hospital of Southern New MexicoOxhyks8895 [facility] [id number] ALP [Catalytic activity/Vol] 123 [iU]/L Abnormal 39-117 [facility] Work Phone: Comment on above: Test(s) 298060-IRB-K ; 669590-QWD-Y; 455691-IWC-B; 944912-Xovnzxnrqkvda; 455126-Uoqyrxrghwo, Total; 077760-EWI-B (Total);810084-Mithk LDL-P; 333484-UWZ Size; 020522-LB-LK Scorewas developed and its performance characteristics determinedby [employer]. It has not been cleared or approved by the Foodand Drug Administration.PATIENT WAS FASTINGPERFORMED BY: [employer] [facility] [employer] [id number] BY: [facility] of AmericaSaint Barnabas Medical CenterWnnygd4383 [facility] [id number] ALP [Catalytic activity/Vol] 123 U/L Abnormal 39-117 [facility]; [facility] Work Phone: Comment on above: Test(s) 382153-RJF-L ; 294512-VME-K; 093217-AZA-C; 583170-Iqexfslttpfwz; 880317-Cwdcmqjsuyp, Total; 031706-BQT-I (Total);966638-Pizas LDL-P; 657841-QBR Size; 136841-XN-EZ Scorewas developed and its performance characteristics determinedby [employer]. It has not been cleared or approved by the Foodand Drug Administration.PATIENT WAS FASTINGPERFORMED BY: [facility] [employer] [facility] [employer] [id number] BY: [facility]imburse[facility] of AmericaSaint Barnabas Medical CenterElptsy5863 [facility] [id number] ALT [Catalytic activity/Vol] 19 [iU]/L Normal 0-32 [facility] Internal Medicine Work Phone: Comment on above: Test(s) 695274-SPH-F ; 171827-JYE-O; 367934-WCN-P; 866906-Mjsddwqowgubf; 827747-Tqowkiglmdh, Total; 037812-WBU-J (Total);007756-Vkxjj LDL-P; 886002-ISR Size; 261435-KY-ET Scorewas developed and its performance characteristics determinedby [employer]. It has not been cleared or approved by the Foodand Drug Administration.PATIENT WAS FASTINGPERFORMED BY: [facility] [employer] [facility] [employer] [id number] BY: [facility]imburse[facility] of AmericaSaint Barnabas Medical CenterOjjbmf6483 [facility] [id number] ALT [Catalytic activity/Vol] 19 U/L Normal 0-32 [facility]; [facility] Work Phone: Comment on above: Test(s) 182337-ASA-F ; 298725-XPC-B; 849944-INE-A; 229879-Rombhhojwpwvt; 779332-Qcotevmmybu, Total; 615647-DVT-Z (Total);219965-Ocija LDL-P; 315987-NOA Size; 147932-HI-IN Scorewas developed and its performance characteristics determinedby [employer]. It has not been cleared or approved by the Foodand Drug Administration.PATIENT WAS FASTINGPERFORMED BY: [employer] [id number] BY: [facility] Reimbursements of AmericaAdvanced Care Hospital of Southern New MexicoRtinjn6138 [facility] [id number] AST [Catalytic activity/Vol] 20 [iU]/L Normal 0-40 [facility] Work Phone: Comment on above: Test(s) 081224-NDJ-A ; 784072-XYU-F; 674095-QEB-U; 188958-Mgbgkqmfoqydl; 625242-Twsaiojfqte, Total; 259233-ZLR-F (Total);932287-Eagqr LDL-P; 438802-AUI Size; 505628-LZ-IC Scorewas developed and its performance characteristics determinedby [employer]. It has not been cleared or approved by the Foodand Drug Administration.PATIENT WAS FASTINGPERFORMED BY: [facility] [address] [id number] BY: [employer] Yjegmy1985 [facility] [id number] AST [Catalytic activity/Vol] 20 U/L Normal 0-40 [facility]; [facility] Work Phone: Comment on above: Test(s) 351187-TAI-I ; 717761-WWA-K; 735467-IOR-X; 541108-Bnaoszxhuuuux; 957710-Fitgzjomjcg, Total; 939211-BZZ-P (Total);039558-Qtdjg LDL-P; 240484-HNA Size; 495296-GR-YQ Scorewas developed and its performance characteristics determinedby [employer]. It has not been cleared or approved by the Foodand Drug Administration.PATIENT WAS FASTINGPERFORMED BY: [facility] [employer] [facility] [employer] [id number] BY: [facility] Reimbursements of AmericaSaint Barnabas Medical CenterAdtobl6648 [facility] [id number] Bilirubin [Mass/Vol] 0.3 mg/dL Normal 0.0-1.2 [facility] Internal Medicine Work Phone: Comment on above: Test(s) 437246-FEU-A ; 480457-FXO-Y; 769500-KQH-U; 869424-Zaaauwzyrhzcs; 160585-Wjjftmtwzyc, Total; 813207-GLK-N (Total);116595-Wrgbi LDL-P; 491029-RHW Size; 508985-VT-JT Scorewas developed and its performance characteristics determinedby [employer]. It has not been cleared or approved by the Foodand Drug Administration.PATIENT WAS FASTINGPERFORMED BY: [facility] [address] [id number] BY: [employer] Msxbte4021 [facility] [id number] Calcium [Mass/Vol] 10.0 mg/dL Normal 8.7-10.2 [facility] Internal Medicine Work Phone: Comment on above: Test(s) 377723-DJW-U ; 546848-KZJ-F; 821987-COJ-F; 453386-Rowccqulhsmae; 829502-Prozuwfudfg, Total; 667694-OQS-Y (Total);844391-Xvvpk LDL-P; 308228-XGH Size; 666186-ME-ZY Scorewas developed and its performance characteristics determinedby [employer]. It has not been cleared or approved by the Foodand Drug Administration.PATIENT WAS FASTINGPERFORMED BY: [facility] [address] [id number] BY: [employer] Czrfag7486 [facility] [id number] Chloride [Moles/Vol] 100 mmol/L Normal 96-106 [facility] Internal Medicine Work Phone: Comment on above: Test(s) 225767-OSZ-S ; 850428-CBB-N; 388435-AAT-T; 122583-Ucoblzviympti; 221155-Tbepeoswtmo, Total; 422983-QOM-F (Total);589020-Fqaxn LDL-P; 300085-QSL Size; 791793-YP-EO Scorewas developed and its performance characteristics determinedby [employer]. It has not been cleared or approved by the Foodand Drug Administration.PATIENT WAS FASTINGPERFORMED BY: BN [employer] [id number] BY: [employer] Zuhwjt4443 [facility]De[facility] [id number] CO2 [Moles/Vol] 23 mmol/L Normal 20-29 [facility] Internal [facility] Work Phone: Comment on above: Test(s) 371537-UDN-L ; 973904-MXH-E; 809199-YLD-F; 849604-Agrvfdrdeojhg; 540850-Igfavlcdtmz, Total; 448540-DHS-R (Total);088361-Ujphj LDL-P; 885441-BES Size; 677701-PI-FC Scorewas developed and its performance characteristics determinedby [employer]. It has not been cleared or approved by the Foodand Drug Administration.PATIENT WAS FASTINGPERFORMED BY: [facility] [address] [id number] BY: Cydan6370 [facility]De[facility] [id number] Creatinine [Mass/Vol] 0.70 mg/dL Normal 0.57-1.00 [facility] Internal Medicine Work Phone: Comment on above: Test(s) 648894-AEJ-U ; 644528-NIO-S; 128411-YEG-L; 546981-Ymuzwfuvdzbph; 383649-Catkqsyqfge, Total; 370050-UHO-L (Total);427885-Rbvsa LDL-P; 548919-JPJ Size; 364048-HA-JG Scorewas developed and its performance characteristics determinedby [employer]. It has not been cleared or approved by the Foodand Drug Administration.PATIENT WAS FASTINGPERFORMED BY: [facility] [address] [id number] BY: Cydan6370 [facility] [id number] GFR/1.73 sq M predicted among blacks CKD-EPI (S/P/Bld) [Vol rate/Area] 112 mL/min/1.73 Normal [facility] Internal Medicine Work Phone: Comment on above: Test(s) 869761-ZTH-N ; 242186-HMV-X; 441676-QXH-A; 592658-Rmgpnjoxdsbvs; 752307-Rdxoxflryox, Total; 385791-YWG-J (Total);598423-Ryevu LDL-P; 413308-FAG Size; 314815-JV-IG Scorewas developed and its performance characteristics determinedby [employer]. It has not been cleared or approved by the Foodand Drug Administration.PATIENT WAS FASTINGPERFORMED BY: [employer] [address] [id number] BY: [employer] Xupoke0045 [facility] [id number] GFR/1.73 sq M predicted among non-blacks CKD-EPI (S/P/Bld) [Vol rate/Area] 97 mL/min/1.73 Normal [facility] Work Phone: Comment on above: Test(s) 533828-HAT-G ; 691407-IUH-I; 310471-DGA-Q; 603183-Xsxsregtlopvz; 295153-Gblzvkrlpmb, Total; 542273-DYS-F (Total);713058-Ohvls LDL-P; 773162-OEZ Size; 248866-KS-YH Scorewas developed and its performance characteristics determinedby [employer]. It has not been cleared or approved by the Foodand Drug Administration.PATIENT WAS FASTINGPERFORMED BY: [employer] [address] [id number] BY: [employer] Uxyouj5874 [facility] [id number] Globulin (S) [Mass/Vol] 2.4 g/dL Normal 1.5-4.5 [facility] Work Phone: Comment on above: Test(s) 909059-TTX-M ; 894370-YEC-E; 821724-DMO-Y; 828412-Leusuczjklzjg; 291485-Vqupsbullux, Total; 429338-FDJ-J (Total);017817-Xtoki LDL-P; 709066-OUT Size; 429002-WI-QE Scorewas developed and its performance characteristics determinedby [employer]. It has not been cleared or approved by the Foodand Drug Administration.PATIENT WAS FASTINGPERFORMED BY: [facility] [address] [id number] BY: [employer]70 VeedaNovant Health Rowan Medical Center [id number] Glucose [Mass/Vol] 265 mg/dL Abnormal 65-99 [facility] Internal Medicine Work Phone: Comment on above: Test(s) 893747-XUF-V ; 843991-XPR-J; 622896-OEQ-L; 955044-Yajvjjsqtuzwu; 598126-Jerfrymhgta, Total; 202024-MKU-R (Total);966762-Peyat LDL-P; 495969-EMS Size; 024414-CO-EI Scorewas developed and its performance characteristics determinedby [employer]. It has not been cleared or approved by the Foodand Drug Administration.PATIENT WAS FASTINGPERFORMED BY: Xamarin[address] [id number] BY: Cydan6370 [facility] Health Systemexurbe cosmeticsNovant Health Rowan Medical Center [id number] Potassium [Moles/Vol] 4.8 mmol/L Normal 3.5-5.2 [facility] Internal Medicine Work Phone: Comment on above: Test(s) 826157-FHR-P ; 204070-LKU-J; 218857-CUG-S; 672461-Omrflpfggupuy; 055699-Ayzoygtpmqt, Total; 610722-UHH-M (Total);737882-Xzacn LDL-P; 526925-FDS Size; 128679-RF-NX Scorewas developed and its performance characteristics determinedby [employer]. It has not been cleared or approved by the Foodand Drug Administration.PATIENT WAS FASTINGPERFORMED BY: [facility] [address] [id number] BY: Alfalightlin6370 [facility] [id number] Protein [Mass/Vol] 6.9 g/dL Normal 6.0-8.5 [facility] Internal Medicine Work Phone: Comment on above: Test(s) 277424-IIN-F ; 719451-OTD-E; 573684-HWV-T; 343102-Bvygpvbtspuxs; 216999-Zgubbjyekkz, Total; 997751-JHT-X (Total);998491-Ybsoq LDL-P; 709385-ZEI Size; 311028-BP-OX Scorewas developed and its performance characteristics determinedby [employer]. It has not been cleared or approved by the Foodand Drug Administration.PATIENT WAS FASTINGPERFORMED BY: [facility] [address] [id number] BY: [employer]70 [facility] [id number] Sodium [Moles/Vol] 141 mmol/L Normal 134-144 [facility] Internal Medicine Work Phone: Comment on above: Test(s) 044794-POE-B ; 314764-LKM-N; 759007-WTZ-V; 806028-Nrvbxnjcwhqdj; 904517-Xfkrzoswywa, Total; 105828-BUN-I (Total);043102-Ujsjj LDL-P; 239755-DVM Size; 263773-FF-RU Scorewas developed and its performance characteristics determinedby [employer]. It has not been cleared or approved by the Foodand Drug Administration.PATIENT WAS FASTINGPERFORMED BY: [facility] [address] [id number] BY: Cydan6370 [facility] [id number] Urea nitrogen [Mass/Vol] 12 mg/dL Normal 6-24 [facility] Internal Medicine Work Phone: Comment on above: Test(s) 582764-ODA-F ; 993889-WVY-Q; 648849-JSY-L; 537488-Lxubnxezttitz; 388145-Dfnxnuppjiy, Total; 570395-YJR-Y (Total);608735-Xcnvg LDL-P; 617297-YQV Size; 394072-YI-EE Scorewas developed and its performance characteristics determinedby [employer]. It has not been cleared or approved by the Foodand Drug Administration.PATIENT WAS FASTINGPERFORMED BY: [facility] [address] [id number] BY: [employer] Hdtppm2190 Mar [employer] [id number] Urea nitrogen/Creatinine [Mass ratio] 17 mg/mg Normal 04-08 [facility] Work Phone: Comment on above: Test(s) 029971-CRN-N ; 673556-AMH-B; 232881-OYN-V; 151199-Cynrwpgtkbmfk; 005386-Wyzbmyanavn, Total; 231116-BRA-Z (Total);066564-Ajaqz LDL-P; 228445-DXS Size; 884393-BE-AX Scorewas developed and its performance characteristics determinedby [employer]. It has not been cleared or approved by the Foodand Drug Administration.PATIENT WAS FASTINGPERFORMED BY: Xamarin[address] [id number] BY: Cydan6370 [facility] [id number] MICROALBUMINOrdered By: Syst em Career Orientation Teacher on 11-22-2019 Albumin DL <= 20 mg/L (U) [Mass/Vol] mg/dL Normal [facility] Work Phone: Comment on above: Test(s) 148841-NYR-H ; 618025-XZG-O; 163420-BGT-V; 981534-Yzhmvyvjxzrhi; 610312-Thxylljlxbm, Total; 493222-QEL-O (Total);977401-Ppxla LDL-P; 452948-LMM Size; 214102-AX-JU Scorewas developed and its performance characteristics determinedby [employer]. It has not been cleared or approved by the Foodand Drug Administration.PATIENT WAS FASTINGPERFORMED BY: [facility] [address] [id number] BY: Cydan6370 [facility] [id number] Albumin DL <= 20 mg/L (U) [Mass/Vol] mg/dL Normal [facility]; [facility] Work Phone: Comment on above: Test(s) 499329-CBK-A ; 062030-AMI-K; 681661-EYB-T; 133439-Ldmhhbcgcwpus; 644269-Jteipcrfklh, Total; 460804-PWM-N (Total);389288-Msber LDL-P; 117661-ZOG Size; 700594-RP-HQ Scorewas developed and its performance characteristics determinedby [employer]. It has not been cleared or approved by the Foodand Drug Administration.PATIENT WAS FASTINGPERFORMED BY: [facility] [address] [id number] BY: [employer]70 [facility] [id number] Albumin/Creatinine (U) [Mass ratio] <3 Normal 0-29 [facility] Work Phone: Comment on above: Normal: 0 - 29 Moder ately increased: 30 - 300 Severely increased: >300 Please note reference interval change Test(s) 184402-KFQ-L ; 689511-LON-Z; 294192-TDH-E; 135870-Drptmldhhxfps; 089796-Mycxyfumakh, Total; 033090-TBH-J (Total);922372-Gkwir LDL-P; 223040-YXL Size; 131220-IO-DO Scorewas developed and its performance characteristics determinedby [employer]. It has not been cleared or approved by the FoodWellMetris Drug Administration.PATIENT WAS FASTINGPERFORMED BY: [facility] [address] [id number] BY: Cydan6370 [facility] [id number] Creatinine (U) [Mass/Vol] 112.5 mg/dL Normal [facility] Work Phone: Comment on above: Test(s) 614758-CMN-W ; 601122-RKF-V; 912625-SQF-M; 199526-Kwurpruwgmymd; 604235-Mjftcglrhed, Total; 657190-VBL-S (Total);937670-Mxyua LDL-P; 376966-XDY Size; 597059-TV-EF Scorewas developed and its performance characteristics determinedby [employer]. 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 It has not been cleared or approved by the Foodand Drug Administration.PATIENT WAS FASTINGPERFORMED BY: Xamarin[address] [id number] BY: Cydan6370 [employer] [id number] Cholesterol in LDL [Mass/Vol] 99 mg/dL Normal 0-99 [facility] Work Phone: Comment on above: . Optimal < 100 Abov e optimal 100 - 129 Borderline 130 - 159 High 160 - 189 Very high > 189 .LDL-C is inaccurate if patient is non-fasting. Test(s) 239449-ISW-S ; 100604-UTE-E; 174719-SRY-D; 299137-Gwugysibvvdmd; 710052-Cjninbseccd, Total; 876907-GYH-Q (Total);497241-Kjgrx LDL-P; 129864-XZW Size; 034733-NF-UO Scorewas developed and its performance characteristics determinedby [employer]. It has not been cleared or approved by the Foodand Drug Administration.PATIENT WAS FASTINGPERFORMED BY: [employer] [address] [id number] BY: [employer]70 VeedaNov[facility] Center [id number] Lipoprotein.alpha [Moles/Vol] 32.0 umol/L Normal [facility] Work Phone: Comment on above: Test(s) 145292-DHL-G ; 332134-ENE-A; 003637-PKD-I; 831155-Hnbszhsvwieeo; 315285-Yjumhdxjfsx, Total; 291885-WUL-C (Total);655877-Ttpxl LDL-P; 361877-GMC Size; 147001-AO-JY Scorewas developed and its performance characteristics determinedby [employer]. It has not been cleared or approved by the Foodand Drug Administration.PATIENT WAS FASTINGPERFORMED BY: BN [employer]CoChrist[employer] [address] [id number] BY: CB [facility] Jcwxcx2336 [facility] [id number] Lipoprotein.beta.subp article [Entitic length] 20.2 nm Abnormal [facility] Work Phone: Comment on above: INTERPRETATIVE INFORMATION PARTICLE CONCENTRATION AND SIZE <--Lower CVD Risk Higher CVD Risk--> LDL AND HDL PARTICLES Percentile in Reference Population HDL-P (total) High 75th 50th 25th Low >34.9 34.9 30.5 26.7 <26.7 . Small LDL-P Low 25th 50th 75th High <117 117 527 839 >839 . LDL Size <-Large (Pattern A)-> <-Small (Pattern B)-> 23.0 20.6 20.5 19.0 Small LDL-P and LDL Size are associated with CVD risk, but not afterLDL-P is taken into account. Test(s) 491505-UGT-V ; 085806-TBC-D; 221624-UWV-L; 063604-Biyaoehddyfga; 381233-Vwxctrrsinp, Total; 129205-SYH-H (Total);411771-Pokxq LDL-P; 484172-ING Size; 011763-LP-FZ Scorewas developed and its performance characteristics determinedby [employer]. It has not been cleared or approved by the Foodand Drug Administration.PATIENT WAS FASTINGPERFORMED BY: [employer] [id number] BY: [facility]imburse[facility] of AmericaMelissa [place] 2794470 [facility] [id number] Lipoprotein.beta.subp article [Moles/Vol] 1554 nmol/L Abnormal Comprehensiv e Internal Medicine Work Phone: Comment on above: Low < 1000 Moderate 1000 - 1299 Borderline-High 1300 - 1599 High 1600 - 2000 Very High > 2000 Test(s) 059148-CDL-H ; 860545-GBD-M; 588198-ZOY-Z; 975626-Yqsupvyskteqf; 732015-Aqkilaymvth, Total; 732717-KVY-X (Total);044327-Wpsmn LDL-P; 270717-IKS Size; 838865-HA-LD Scorewas developed and its performance characteristics determinedby [employer]. It has not been cleared or approved by the Foodand Drug Administration.PATIENT WAS FASTINGPERFORMED BY: [employer] [id number] BY: [facility] Reimbursements of AmericaSaint Barnabas Medical CenterHoysgw8898 [facility] [id number] Lipoprotein.beta.subp article.small [Moles/Vol] 952 nmol/L Abnormal [facility] Work Phone: Comment on above: Test(s) 067750-GJW-K ; 942096-TXC-D; 121130-ING-S; 299513-Lfqehnslaifla; 326763-Gwaqfbqryqk, Total; 777008-XOC-D (Total);478106-Aceuq LDL-P; 968229-IJN Size; 693285-SD-EA Scorewas developed and its performance characteristics determinedby [employer]. It has not been cleared or approved by the Foodand Drug Administration.PATIENT WAS FASTINGPERFORMED BY: Xamarin[address] [id number] BY: [employer] Hxyajy2833 [facility] [id number] Triglyceride [Mass/Vol] 141 mg/dL Normal 0-149 [facility] Work Phone: Comment on above: Test(s) 452856-BGD-H ; 895347-RVD-D; 817779-YNB-I; 285150-Wrhlmfrynsehc; 343387-Vmfcwppaslh, Total; 281063-OKH-D (Total);193386-Xlaql LDL-P; 405222-POM Size; 058431-CT-PQ Scorewas developed and its performance characteristics determinedby [employer]. It has not been cleared or approved by the Foodand Drug Administration.PATIENT WAS FASTINGPERFORMED BY: Xamarin[address] [id number] BY: Cydan6370 [facility] [id number] NMR Profile (92891) 40 mg/dL Normal [facility] Work Phone: Comment on above: Test(s) 081861-DER-G ; 773703-QUU-Q; 963855-ZRA-T; 133988-Grrxxojiuxkks; 345696-Pwfzfhftemo, Total; 142373-IXN-V (Total);932814-Lgzji LDL-P; 870014-RZL Size; 043663-AS-UF Scorewas developed and its performance characteristics determinedby [employer]. It has not been cleared or approved by the Foodand Drug Administration.PATIENT WAS FASTINGPERFORMED BY: [employer] [address] [id number] BY: [employer] Hmpaam8737 [facility] [id number] NMR Profile (66540) 99 mg/dL Normal 0-99 Compr ehensive Internal Medicine; [facility] Work Phone: Comment on above: . Optimal < 100 Abov e optimal 100 - 129 Borderline 130 - 159 High 160 - 189 Very high > 189 .LDL-C is inaccurate if patient is non-fasting. Test(s) 793447-MVR-Q ; 092046-YTS-Y; 811450-CVK-X; 340513-Phdopjjhkriml; 961746-Kfzuijoandy, Total; 571813-VHA-F (Total);279833-Oysgc LDL-P; 852463-WCG Size; 482841-KR-SX Scorewas developed and its performance characteristics determinedby [employer]. It has not been cleared or approved by the Foodand Drug Administration.PATIENT WAS FASTINGPERFORMED BY: Xamarin[address] [id number] BY: [employer]70 [facility] [id number] TSH (25943)Ordered By: Famely Career Orientation Teacher on 11-22-2019 TSH Qn 0.886 {uIU/mL} Normal 0.450-4.500 [facility] Internal Medicine Work Phone: Comment on above: Test(s) 324616-GHX-R ; 178085-SHH-T; 705431-AFG-O; 428238-Ovdbmwipfcbdt; 215254-Urdocfqosci, Total; 006250-JTC-D (Total);094144-Kbzeq LDL-P; 874104-THV Size; 914037-QV-RF Scorewas developed and its performance characteristics determinedby [employer]. It has not been cleared or approved by the Foodand Drug Administration.PATIENT WAS FASTINGPERFORMED BY: Xamarinton1447 [facility] [id number] BY: Cydan6370 [facility] [id number] URINALYSIS, W/ MICRO (16480) Ordered By: Corrosion Technician on 11-22-2019 Appearance (U) Clear Normal Comprehens [facility] Internal Medicine Work Phone: Comment on above: Test(s) 333884-SJE-R ; 829868-BEC-S; 748639-OBE-E; 988149-Amliiqyhslcoy; 113521-Bccvmjscsbh, Total; 023078-TDE-V (Total);230771-Wetag LDL-P; 069946-AGM Size; 128471-OS-UL Scorewas developed and its performance characteristics determinedby [employer]. It has not been cleared or approved by the Foodand Drug Administration.PATIENT WAS FASTINGPERFORMED BY: [employer] [address] [id number] BY: [employer]70 Mar [employer] [id number] Bilirubin Ql (U) Negative Normal Comprehe nsive Internal Medicine Work Phone: Comment on above: Test(s) 659293-QBX-Z ; 017599-WHX-M; 257015-PQG-K; 154948-Ahnrabqphulas; 677030-Ghwidlzgkub, Total; 888368-KVV-C (Total);434794-Exkpk LDL-P; 525182-DQK Size; 789609-VZ-VM Scorewas developed and its performance characteristics determinedby [employer]. It has not been cleared or approved by the Foodand Drug Administration.PATIENT WAS FASTINGPERFORMED BY: [employer] [address] [id number] BY: [employer]70 [facility] [id number] Bilirubin Ql (U) Negative Normal Comprehe nsive Internal Medicine; [facility] Work Phone: Comment on above: Test(s) 257252-JCD-J ; 924218-OBY-C; 534669-XGH-W; 108601-Okqmrtkkimbwo; 730243-Yqmgopwigik, Total; 916678-FYE-B (Total);703194-Uyxcx LDL-P; 232892-GAF Size; 636245-YZ-YG Scorewas developed and its performance characteristics determinedby [employer]. It has not been cleared or approved by the Foodand Drug Administration.PATIENT WAS FASTINGPERFORMED BY: [employer] [address] [id number] BY: [employer]70 [employer] [id number] Color (U) Yellow Normal [facility] Work Phone: Comment on above: Test(s) 609534-CSP-N ; 266984-KQW-H; 135667-HTR-B; 422514-Etacunbkuxcaj; 338165-Bfsvudcbgda, Total; 832162-DLG-W (Total);460385-Ujvqn LDL-P; 189687-BOZ Size; 300460-TD-ZC Scorewas developed and its performance characteristics determinedby [employer]. It has not been cleared or approved by the Foodand Drug Administration.PATIENT WAS FASTINGPERFORMED BY: [employer] [address] [id number] BY: [employer]70 [facility] [id number] Glucose Ql (U) 3+ Abnormal Comprehens nataly Internal Medicine Work Phone: Comment on above: Test(s) 650142-LMP-U ; 836574-HWJ-I; 245413-HFI-N; 966810-Apuenihvdimtd; 843897-Tssnpcnwftv, Total; 085012-LKC-T (Total);628503-Qdirn LDL-P; 937356-OAX Size; 645589-DG-BQ Scorewas developed and its performance characteristics determinedby [employer]. It has not been cleared or approved by the Foodand Drug Administration.PATIENT WAS FASTINGPERFORMED BY: [employer] [address] [id number] BY: Cydan6370 [facility] [id number] Hemoglobin Ql (U) Negative Normal Compreh ensive Internal Medicine Work Phone: Comment on above: Test(s) 257613-WOU-H ; 602866-NPZ-B; 535408-ABN-L; 503392-Vntenpfptbiqm; 450629-Zywvtubnujl, Total; 162975-OEQ-U (Total);863650-Gbilp LDL-P; 151341-IEY Size; 025871-IG-PM Scorewas developed and its performance characteristics determinedby [employer]. It has not been cleared or approved by the Foodand Drug Administration.PATIENT WAS FASTINGPERFORMED BY: BN [facility] [id number] BY: [facility] Reimbursements of AmericaSaint Barnabas Medical CenterMbyrau5799 [facility] [id number] Hemoglobin Ql (U) Negative Normal Compreh ensive Internal Medicine; [facility] Work Phone: Comment on above: Test(s) 131813-EKH-R ; 354606-AQM-M; 958390-FYO-R; 536379-Eccghwagahals; 332729-Usfwzsbmxhs, Total; 767217-RXK-L (Total);976299-Ggxxi LDL-P; 417728-MEC Size; 929617-JE-ZJ Scorewas developed and its performance characteristics determinedby [employer]. It has not been cleared or approved by the Foodand Drug Administration.PATIENT WAS FASTINGPERFORMED BY: [employer] [address] [id number] BY: [facility] Reimbursements of AmericaAdvanced Care Hospital of Southern New MexicoUupslp1240 [facility] [id number] Ketones Ql (U) Negative Normal Comprehens nataly Internal Medicine Work Phone: Comment on above: Test(s) 207315-CEJ-F ; 168326-XRB-M; 123789-XUM-F; 668676-Geboijvmvsdnu; 419403-Zictzhcztri, Total; 826258-PGD-I (Total);818981-Xyodu LDL-P; 232482-AHS Size; 537791-IX-CV Scorewas developed and its performance characteristics determinedby [employer]. It has not been cleared or approved by the Foodand Drug Administration.PATIENT WAS FASTINGPERFORMED BY: [employer] [id number] BY: [facility]imbursements of AmericaMel[place] 2794470 [facility] [id number] Ketones Ql (U) Negative Normal Comprehens nataly Internal Medicine; [facility] Work Phone: Comment on above: Test(s) 603248-LWF-O ; 477126-TCU-I; 132583-KYC-F; 370690-Qxxtrsnfbfszr; 699329-Ctbrhlbhcug, Total; 503664-IKS-Q (Total);906576-Uvnub LDL-P; 192381-MCJ Size; 902374-GN-KM Scorewas developed and its performance characteristics determinedby [employer]. It has not been cleared or approved by the Foodand Drug Administration.PATIENT WAS FASTINGPERFORMED BY: [employer] [address] [id number] BY: [employer]70 [facility] [id number] Leukocyte esterase Test strip Ql (U) 1+ Abnormal [facility] Work Phone: Comment on above: Test(s) 369084-YMF-S ; 628043-LCW-V; 050762-CLI-N; 642550-Oskolsytjhytz; 517944-Hrwuiuzcxmw, Total; 895696-MWK-T (Total);322785-Liyed LDL-P; 792803-VBZ Size; 475560-NP-EA Scorewas developed and its performance characteristics determinedby [employer]. It has not been cleared or approved by the Foodand Drug Administration.PATIENT WAS FASTINGPERFORMED BY: [employer] [address] [id number] BY: [employer]70 [facility] [id number] Microscopic observation LM Nom (Urine sed) See below: Normal [facility] Work Phone: Comment on above: Microscopic was yue cated and was performed. Test(s) 552334-DBM-D ; 453759-WVZ-J; 092205-MDA-K; 737931-Odvcunmqusias; 833084-Zwxdztxhfny, Total; 692099-FEV-W (Total);111599-Ntfwm LDL-P; 632642-YGK Size; 206592-GV-WL Scorewas developed and its performance characteristics determinedby [employer]. It has not been cleared or approved by the Foodand Drug Administration.PATIENT WAS FASTINGPERFORMED BY: [employer] [address] [id number] BY: [employer]70 [facility] [id number] Nitrite Ql (U) Negative Normal Comprehens nataly Internal Medicine Work Phone: Comment on above: Test(s) 872242-FRD-A ; 841685-RRS-Q; 169048-NSC-J; 635243-Hkxskycjfnqmt; 533761-Ecdpjsrxrkm, Total; 597474-SAA-J (Total);257430-Npghs LDL-P; 561611-TCL Size; 937944-CY-JR Scorewas developed and its performance characteristics determinedby [employer]. It has not been cleared or approved by the Foodand Drug Administration.PATIENT WAS FASTINGPERFORMED BY: Xamarin[address] [id number] BY: [employer]70 [facility]De[facility] [id number] [facility] Ql (U) Negative Normal Comprehens nataly Internal Medicine; [facility] Work Phone: Comment on above: Test(s) 723565-ILD-H ; 529805-NDF-Z; 061287-IJV-P; 019526-Egzjvfaihxwbq; 633241-Rlitpbhxmcv, Total; 282286-PLR-R (Total);776277-Wwely LDL-P; 951412-LQG Size; 004482-VB-XA Scorewas developed and its performance characteristics determinedby [employer]. It has not been cleared or approved by the Foodand Drug Administration.PATIENT WAS FASTINGPERFORMED BY: [employer] [address] [id number] BY: Cydan6370 [facility] [id number] pH (U) 5.5 [pH] Normal 5.0-7.5 [facility] Work Phone: Comment on above: Test(s) 840209-GCK-G ; 831911-MSS-Z; 240282-PZG-J; 860194-Vbtvijsxzhjku; 151125-Zgengfrsyfk, Total; 820015-DXX-T (Total);112128-Ndsqs LDL-P; 736146-YRI Size; 780180-UX-OY Scorewas developed and its performance characteristics determinedby [employer]. It has not been cleared or approved by the Foodand Drug Administration.PATIENT WAS FASTINGPERFORMED BY: [employer] [address] [id number] BY: Cydan6370 [facility] [id number] Protein Ql (U) Negative Normal Comprehens nataly Internal Medicine Work Phone: Comment on above: Test(s) 133106-VPJ-D ; 697925-WUY-W; 911020-MNQ-V; 145661-Aplhzugxwnmlf; 326713-Idwlzdblcmq, Total; 693664-IFD-N (Total);672051-Plqjs LDL-P; 822456-TEQ Size; 063658-SM-GQ Scorewas developed and its performance characteristics determinedby [employer]. It has not been cleared or approved by the Foodand Drug Administration.PATIENT WAS FASTINGPERFORMED BY: [employer] [address] [id number] BY: Cydan6370 [facility] [id number] Protein Ql (U) Negative Normal Comprehens nataly Internal Medicine; [facility] Work Phone: Comment on above: Test(s) 820783-AMG-Q ; 214287-QZE-X; 208989-QOW-R; 056902-Jlrynietcvpjo; 757808-Lwhyjuidfzl, Total; 309306-HRN-Q (Total);237294-Frysl LDL-P; 993494-ENE Size; 304860-JK-ST Scorewas developed and its performance characteristics determinedby [employer]. It has not been cleared or approved by the Foodand Drug Administration.PATIENT WAS FASTINGPERFORMED BY: [employer] [address] [id number] BY: Cydan6370 [facility] [id number] Specific gravity (U) [Rel density] 1.027 1 Normal 1.005-1.030 [facility] Work Phone: Comment on above: Test(s) 708281-SYE-P ; 832201-PZY-P; 403734-STG-Q; 964197-Bgygllvtpyqqk; 453587-Icjsekwnrzt, Total; 605078-ZRU-Q (Total);618997-Pcvie LDL-P; 309074-YEX Size; 875014-SH-HC Scorewas developed and its performance characteristics determinedby [employer]. It has not been cleared or approved by the Foodand Drug Administration.PATIENT WAS FASTINGPERFORMED BY: [employer] [address] [id number] BY: [employer] Ynpnuu6077 [facility] [id number] Urobilinogen (U) [Mass/Vol] 0.2 mg/dL Normal 0.2-1.0 [facility] Internal Medicine; [facility] Internal Medicine Work Phone: Comment on above: Test(s) 725621-UCF-G ; 950410-CFK-W; 360694-UQA-M; 208989-Ctkvhjkmcnpfw; 466262-Doqsoxrrrno, Total; 524831-PIK-V (Total);138973-Eebrp LDL-P; 159020-QDN Size; 880433-IR-RK Scorewas developed and its performance characteristics determinedby [employer]. It has not been cleared or approved by the Foodand Drug Administration.PATIENT WAS FASTINGPERFORMED BY: [employer] [id number] BY: [employer] Rrzmnk7622 [facility] [id number] Urobilinogen Test strip (U) [Mass/Vol] 0.2 mg/dL Normal 0.2-1.0 [facility] Internal Medicine Work Phone: Comment on above: Test(s) 294537-BRB-H ; 300757-YWK-J; 833194-VTY-A; 387206-Mkxuissolymmv; 298461-Vpjvrllbcfj, Total; 158034-RKW-V (Total);521479-Dggrx LDL-P; 494795-ATA Size; 523583-HY-WL Scorewas developed and its performance characteristics determinedby [employer]. It has not been cleared or approved by the Foodand Drug Administration.PATIENT WAS FASTINGPERFORMED BY: [address] [id number] BY: [place] 4086570 [facility] [id number] CBC W/AUTO DIFF WBC (04455)O rdered By: Corrosion Technician on 02-18-2019 Basophils (Bld) [#/Vol] 0.0 {x10E3/uL} Normal 0.0-0.2 [facility] Work Phone: Comment on above: PATIENT NOT FASTINGP ERFORMED BY: [address] [id number] BY: [place] 4086570 [facility] [id number] Basophils (Bld) [#/Vol] 0.0 10*3/uL Normal 0.0-0.2 [facility]; [facility] Work Phone: Comment on above: PATIENT NOT FASTINGP ERFORMED BY: [address] [id number] BY: [place] 4086570 [facility] [id number] Basophils/100 WBC (Bld) 1 % Normal [facility] Work Phone: Comment on above: PATIENT NOT FASTINGP ERFORMED BY: [address] [id number] BY: [place] 4086570 [facility] [id number] Eosinophils (Bld) [#/Vol] 0.3 {x10E3/uL} Normal 0.0-0.4 [facility] Work Phone: Comment on above: PATIENT NOT FASTINGP ERFORMED BY: [address] [id number] BY: [facility]6370 [facility] [id number] Eosinophils (Bld) [#/Vol] 0.3 10*3/uL Normal 0.0-0.4 [facility]; [facility] Work Phone: Comment on above: PATIENT NOT FASTINGP ERFORMED BY: [employer] [facility] [employer] [id number] BY: [facility] Dwzadn6912 Mar RoadDavis Regional Medical Centerin [place] [id number] Eosinophils/100 WBC (Bld) 4 % Normal [facility] Work Phone: Comment on above: PATIENT NOT FASTINGP ERFORMED BY: [employer] [facility] [employer] [id number] BY: [facility] Qszmlq0318 [facility] [id number] Erythrocyte distribution width (RBC) [Ratio] 12.9 % Normal 12.3-15.4 [facility] Work Phone: Comment on above: PATIENT NOT FASTINGP ERFORMED BY: [employer] [facility] [employer] [id number] BY: [facility] Gaguag3523 [facility] [id number] Hematocrit (Bld) [Volume fraction] 40.9 % Normal 34.0-46.6 [facility] Work Phone: Comment on above: PATIENT NOT FASTINGP ERFORMED BY: [facility] [facility] [employer] [id number] BY: [facility] Sfsypu2047 [facility] [id number] Hemoglobin (Bld) [Mass/Vol] 13.4 g/dL Normal 11.1-15.9 [facility] Work Phone: Comment on above: PATIENT NOT FASTINGP ERFORMED BY: [facility] [employer] [facility] [employer] [id number] BY: LabCoSaint Barnabas Medical CenterTytcnm7043 Mar [facility]in [place] [id number] Immature granulocytes (Bld) [#/Vol] 0.0 {x10E3/uL} Normal 0.0-0.1 [facility] Work Phone: Comment on above: PATIENT NOT FASTINGP ERFORMED BY: [facility] [address] [id number] BY: [facility] Uousfn6903 Mar RoadDublin [place] [id number] Immature granulocytes (Bld) [#/Vol] 0.0 10*3/uL Normal 0.0-0.1 [facility]; [facility] Work Phone: Comment on above: PATIENT NOT FASTINGP ERFORMED BY: [facility] [address] [id number] BY: CB [facility] Ooqrvf1780 Mar RoadDublin [place] [id number] Immature granulocytes/100 WBC (Bld) 0 % Normal [facility] Work Phone: Comment on above: PATIENT NOT FASTINGP ERFORMED BY: [facility] [address] [id number] BY: [facility] Epdhrj4348 Mar RoadDublin [place] [id number] Lymphocytes (Bld) [#/Vol] 1.8 {x10E3/uL} Normal 0.7-3.1 [facility] Work Phone: Comment on above: PATIENT NOT FASTINGP ERFORMED BY: [facility] [address] [id number] BY: [facility] Nyrqrn3029 Mar RoadDublin [place] [id number] Lymphocytes (Bld) [#/Vol] 1.8 10*3/uL Normal 0.7-3.1 [facility]; [facility] Work Phone: Comment on above: PATIENT NOT FASTINGP ERFORMED BY: [facility] [address] [id number] BY: [facility] Jydzep8470 Mar RoadDublin [place] [id number] Lymphocytes/100 WBC (Bld) 27 % Normal [facility] Work Phone: Comment on above: PATIENT NOT FASTINGP ERFORMED BY: [facility] Gfzopxmaet9531 [facility] [id number] BY: [facility] Yvqjwe1819 [facility] [id number] MCH (RBC) [Entitic mass] 29.1 pg Normal 26.6-33.0 [facility] Work Phone: Comment on above: PATIENT NOT FASTINGP ERFORMED BY: [facility] [address] [id number] BY: [facility] Szkyll8024 [facility] [id number] MCHC (RBC) [Mass/Vol] 32.8 g/dL Normal 31.5-35.7 [facility] Internal Medicine Work Phone: Comment on above: PATIENT NOT FASTINGP ERFORMED BY: [facility] [id number] BY: [facility] Lppgcb6023 [facility] [id number] MCV (RBC) [Entitic vol] 89 fL Normal 79-97 [facility] Work Phone: Comment on above: PATIENT NOT FASTINGP ERFORMED BY: [facility] [address] [id number] BY: [facility] Fskjyc2019 [facility] [id number] Monocytes (Bld) [#/Vol] 0.5 {x10E3/uL} Normal 0.1-0.9 [facility] Work Phone: Comment on above: PATIENT NOT FASTINGP ERFORMED BY: [facility] [address] [id number] BY: [facility] Qkkaif4193 [facility] [id number] Monocytes (Bld) [#/Vol] 0.5 10*3/uL Normal 0.1-0.9 [facility]; [facility] Work Phone: Comment on above: PATIENT NOT FASTINGP ERFORMED BY: [facility] [address] [id number] BY: CHERYL [facility] Vsepuy4121 [address] RoadDublin [place] [id number] Monocytes/100 WBC (Bld) 8 % Normal [facility] Work Phone: Comment on above: PATIENT NOT FASTINGP ERFORMED BY: [facility] [address] [id number] BY: CHERYL [facility] Lagske1403 [address] RoadDublin [place] [id number] Neutrophils (Bld) [#/Vol] 3.8 {x10E3/uL} Normal 1.4-7.0 [facility] Work Phone: Comment on above: PATIENT NOT FASTINGP ERFORMED BY: [facility] [address] [id number] BY: CHERYL [facility] Imuwml4505 [address] RoadDublin [place] [id number] Neutrophils (Bld) [#/Vol] 3.8 10*3/uL Normal 1.4-7.0 [facility]; [facility] Work Phone: Comment on above: PATIENT NOT FASTINGP ERFORMED BY: [facility] [address] [id number] BY: CHERYL [facility] Yzycvz8887 [address] RoadDublin [place] [id number] Neutrophils/100 WBC (Bld) 60 % Normal [facility] Work Phone: Comment on above: PATIENT NOT FASTINGP ERFORMED BY: [facility] [address] [id number] BY: CHERYL [facility] Impwnh6589 [address] RoadDublin [place] [id number] Platelets (Bld) [#/Vol] 264 {x10E3/uL} Normal 150-450 [facility] Work Phone: Comment on above: PATIENT NOT FASTINGP ERFORMED BY: [facility] [address] [id number] BY: [facility] Uzfujj6262 [address] RoadDublin [place] [id number] Platelets (Bld) [#/Vol] 264 10*3/uL Normal 150-450 [facility]; [facility] Work Phone: Comment on above: PATIENT NOT FASTINGP ERFORMED BY: [facility] [address] [id number] BY: [facility] Tdezfd4783 [address] RoadDublin [place] [id number] RBC (Bld) [#/Vol] 4.61 {x10E6/uL} Normal 3.77-5.28 [facility] Internal Medicine Work Phone: Comment on above: PATIENT NOT FASTINGP ERFORMED BY: [facility] [address] [id number] BY: [facility] Yftulh1442 [address] RoadDublin [place] [id number] RBC (Bld) [#/Vol] 4.61 10*6/uL Normal 3.77-5.28 [facility] Internal Medicine; [facility] Work Phone: Comment on above: PATIENT NOT FASTINGP ERFORMED BY: [facility] [address] [id number] BY: [facility] Uwwyyw0242 [address] RoadDublin [place] [id number] WBC (Bld) [#/Vol] 6.5 {x10E3/uL} Normal 3.4-10.8 [facility] Internal Medicine Work Phone: Comment on above: PATIENT NOT FASTINGP ERFORMED BY: [facility] [address] [id number] BY: [facility] Kvpjai6066 [address] RoadDublin [place] [id number] WBC (Bld) [#/Vol] 6.5 10*3/uL Normal 3.4-10.8 [facility]; [facility] Work Phone: Comment on above: PATIENT NOT FASTINGP ERFORMED BY: BN [facility] [address] [id number] BY: CB [facility] Exirkw0351 [address] RoadDublin [place] [id number] HGB A1C (25715)Ordered By: S ystem Career Orientation Teacher on 02-18-2019 HbA1c (Bld) [Mass fraction] 10.2 % Abnormal 4.8-5.6 [facility] Work Phone: Comment on above: . Prediabetes: 5.7 - 6.4 Diabetes: >6.4 Glycemic control for adults with diabetes: <7.0 PATIENT NOT FASTINGP ERFORMED BY: BN [facility] [address] [id number] BY: CB [facility] Kpleig3525 [address] RoadDublin [place] [id number] METABOLIC PANEL, COMPREHENSI VE (76856)Ordered By: Corrosion Technician on 02-18-2019 Albumin [Mass/Vol] 4.5 g/dL Normal 3.5-5.5 [facility] Internal Medicine Work Phone: Comment on above: PATIENT NOT FASTINGP ERFORMED BY: BN [facility] [address] [id number] BY: CB [facility] Sbrlxz7508 [address] RoadDublin [place] [id number] Albumin/Globulin [Mass ratio] 1.9 {ratio} Normal 1.2-2.2 [facility] Work Phone: Comment on above: PATIENT NOT FASTINGP ERFORMED BY: BN [facility] [address] [id number] BY: CB [facility] Adlzum3310 [address] RoadDublin [place] [id number] ALP [Catalytic activity/Vol] 107 [iU]/L Normal 39-117 [facility] Work Phone: Comment on above: PATIENT NOT FASTINGP ERFORMED BY: BN [facility] [address] [id number] BY: CB [facility] Vxmpvg4802 [address] RoadDublin [place] [id number] ALP [Catalytic activity/Vol] 107 U/L Normal 39-117 [facility]; [facility] Work Phone: Comment on above: PATIENT NOT FASTINGP ERFORMED BY: [facility] [address] [id number] BY: [facility] Rvkzxy0104 [address] RoadDublin [place] [id number] ALT [Catalytic activity/Vol] 20 [iU]/L Normal 0-32 [facility] Work Phone: Comment on above: PATIENT NOT FASTINGP ERFORMED BY: [facility] [id number] BY: [facility] Pjtfvx2368 [address] RoadDublin [place] [id number] ALT [Catalytic activity/Vol] 20 U/L Normal 0-32 [facility]; [facility] Work Phone: Comment on above: PATIENT NOT FASTINGP ERFORMED BY: [facility] [id number] BY: [facility] Hmgvfn6839 Mar RoadDublin [place] [id number] AST [Catalytic activity/Vol] 18 [iU]/L Normal 0-40 [facility] Work Phone: Comment on above: PATIENT NOT FASTINGP ERFORMED BY: [address] [id number] BY: [facility] Ufqgqz1094 Mar RoadDublin [place] [id number] AST [Catalytic activity/Vol] 18 U/L Normal 0-40 [facility]; [facility] Work Phone: Comment on above: PATIENT NOT FASTINGP ERFORMED BY: [facility] [id number] BY: CB [facility] Xtwvds1922 Mar RoadDublin [place] [id number] Bilirubin [Mass/Vol] 0.3 mg/dL Normal 0.0-1.2 [facility] Work Phone: Comment on above: PATIENT NOT FASTINGP ERFORMED BY: BN [facility] Tcgquhxvdp9601 [facility] [id number] BY: CB [facility] Nxetmc7551 Mar RoadDublin [place] [id number] Calcium [Mass/Vol] 10.2 mg/dL Normal 8.7-10.2 [facility] Internal Medicine Work Phone: Comment on above: PATIENT NOT FASTINGP ERFORMED BY: BN [facility] Gzdfakjcfd[address] [id number] BY: CB [facility] Fszngi5694 Mar RoadDublin [place] [id number] Chloride [Moles/Vol] 99 mmol/L Normal 96-106 [facility] Work Phone: Comment on above: PATIENT NOT FASTINGP ERFORMED BY: BN [facility] [address] [id number] BY: CB [facility] Njtrzo3345 Mar RoadDuin [place] [id number] CO2 [Moles/Vol] 23 mmol/L Normal 20-29 [facility] Work Phone: Comment on above: PATIENT NOT FASTINGP ERFORMED BY: BN [facility] [address] [id number] BY: CB [facility] Yqxbde1270 Mar RoadDublin [place] [id number] Creatinine [Mass/Vol] 0.77 mg/dL Normal 0.57-1.00 [facility] Internal Medicine Work Phone: Comment on above: PATIENT NOT FASTINGP ERFORMED BY: BN [facility] [address] [id number] BY: CB [facility] Syuwul8867 Mar RoadDavis Regional Medical Centerin [place] [id number] GFR/1.73 sq M predicted among blacks CKD-EPI (S/P/Bld) [Vol rate/Area] 100 mL/min/1.73 Normal [facility] Work Phone: Comment on above: PATIENT NOT FASTINGP ERFORMED BY: [facility] [address] [id number] BY: [facility] Upthju8908 Mar RoadDublin [place] [id number] GFR/1.73 sq M predicted among non-blacks CKD-EPI (S/P/Bld) [Vol rate/Area] 87 mL/min/1.73 Normal [facility] Work Phone: Comment on above: PATIENT NOT FASTINGP ERFORMED BY: BN [facility] [address] [id number] BY: [facility] Qvcvkq3727 Mar [facility] [place] [id number] Globulin (S) [Mass/Vol] 2.4 g/dL Normal 1.5-4.5 [facility] Internal Medicine Work Phone: Comment on above: PATIENT NOT FASTINGP ERFORMED BY: [facility] [address] [id number] BY: [facility] Ojcjon1802 Mar RoadDuin [place] [id number] Glucose [Mass/Vol] 287 mg/dL Abnormal 65-99 [facility] Internal Medicine Work Phone: Comment on above: PATIENT NOT FASTINGP ERFORMED BY: [facility] [address] [id number] BY: [facility] Amlrhv3300 Mar [facility]bl[facility] [place] [id number] Potassium [Moles/Vol] 4.8 mmol/L Normal 3.5-5.2 [facility] Internal Medicine Work Phone: Comment on above: PATIENT NOT FASTINGP ERFORMED BY: [facility] [address] [id number] BY: CB [facility] Hljoeg8320 Mar RoadDublin [place] [id number] Protein [Mass/Vol] 6.9 g/dL Normal 6.0-8.5 [facility] Internal Medicine Work Phone: Comment on above: PATIENT NOT FASTINGP ERFORMED BY: BN [facility] Jjordvtese1631 [facility] [id number] BY: CHERYL [facility] Ztlvac5357 Mar RoadDublin [place] [id number] Sodium [Moles/Vol] 138 mmol/L Normal 134-144 [facility] Internal Medicine Work Phone: Comment on above: PATIENT NOT FASTINGP ERFORMED BY: BN [facility] Hvgmuydspd8528 [facility] [id number] BY: CB [facility] Mbobgp2001 Mar RoadDublin [place] [id number] Urea nitrogen [Mass/Vol] 14 mg/dL Normal 6-24 [facility] Work Phone: Comment on above: PATIENT NOT FASTINGP ERFORMED BY: BN [facility] Flawjnpvpk[address] [id number] BY: CHERYL [facility] Okssgy7074 Mar RoadDublin [place] [id number] Urea nitrogen/Creatinine [Mass ratio] 18 mg/mg Normal 9-23 [facility] Work Phone: Comment on above: PATIENT NOT FASTINGP ERFORMED BY: BN [facility] Bcyvqjmpvj8125 [facility] [id number] BY: CB [facility] Jxfafk5976 Mar RoadDublin [place] [id number] MICROALBUMINOrdered By: Syst em Career Orientation Teacher on 02-18-2019 Albumin DL <= 20 mg/L (U) [Mass/Vol] mg/dL Normal [facility] Work Phone: Comment on above: PATIENT NOT FASTINGP ERFORMED BY: BN [facility] Bttddjeozl[address] [id number] BY: CB [facility] Gxlbng2985 Mar RoadDublin [place] [id number] Albumin DL <= 20 mg/L (U) [Mass/Vol] mg/dL Normal [facility]; [facility] Work Phone: Comment on above: PATIENT NOT FASTINGP ERFORMED BY: BN [facility] Tdtqisaosi5494 [address] CourtBurlington [place] [id number] BY: Mo-DVTrinity [facility]6370 [facility] [id number] Albumin/Creatinine (U) [Mass ratio] <4.4 Normal 0.0-30.0 [facility] Work Phone: Comment on above: Normal: 0.0 - 30.0 A lbuminuria: 31.0 - 300.0 Clinical albuminuria: >300.0 PATIENT NOT FASTINGP ERFORMED BY: [facility] [employer] [id number] BY: [facility] AmericaMel[place] 2794470 [facility] [id number] Creatinine (U) [Mass/Vol] 68.6 mg/dL Normal [facility] Work Phone: Comment on above: PATIENT NOT FASTINGP ERFORMED BY: [facility] [id number] BY: [facility] America[place] 2794470 [facility] [id number] NMR Profile (05391)Ordered B y: Corrosion Technician on 02-18-2019 Cholesterol [Mass/Vol] 169 mg/dL Normal 100-199 [facility] Work Phone: Comment on above: PATIENT NOT FASTINGP ERFORMED BY: [facility] [facility] [employer] [id number] BY: [facility] AmericaSaint Barnabas Medical CenterTcexmf9417 [facility] [id number] Lipoprotein.alpha [Moles/Vol] 30.7 umol/L Normal [facility] Work Phone: Comment on above: PATIENT NOT FASTINGP ERFORMED BY: [facility] [employer] [id number] BY: Mo-DVTr[facility] Hospital6370 [facility] [id number] Lipoprotein.beta.subp article [Entitic length] 20.2 nm Abnormal [facility] Work Phone: Comment on above: INTERPRETATIVE INFORMATION PARTICLE CONCENTRATION AND SIZE <--Lower CVD Risk Higher CVD Risk--> LDL AND HDL PARTICLES Percentile in Reference Population HDL-P (total) High 75th 50th 25th Low >34.9 34.9 30.5 26.7 <26.7 . Small LDL-P Low 25th 50th 75th High <117 117 527 839 >839 . LDL Size <-Large (Pattern A)-> <-Small (Pattern B)-> 23.0 20.6 20.5 19.0 Small LDL-P and LDL Size are associated with CVD risk, but not afterLDL-P is taken into account. .These assays were developed and their performance characteristicsdetermined by [employer]. These assays have not been cleared by Jeffrey Food and Drug Administration. The clinical utility of theselaboratory values have not been fully established. PATIENT NOT FASTINGP ERFORMED BY: Com[facility]ility [facility] [id number] BY: [employer]70 MarDeaconess [facility] [id number] Lipoprotein.beta.subp article [Moles/Vol] 1484 nmol/L Abnormal Comprehensiv e Internal Medicine Work Phone: Comment on above: Low < 1000 Moderate 1000 - 1299 Borderline-High 1300 - 1599 High 1600 - 2000 Very High > 2000 PATIENT NOT FASTINGP ERFORMED BY: [employer] [address] [id number] BY: [employer]70 [facility] [id number] Lipoprotein.beta.subp article.small [Moles/Vol] 916 nmol/L Abnormal [facility] Work Phone: Comment on above: PATIENT NOT FASTINGP ERFORMED BY: [facility] [address] [id number] BY: [facility] Hoxosk8456 Mar [facility] [id number] Triglyceride [Mass/Vol] 121 mg/dL Normal 0-149 [facility] Work Phone: Comment on above: PATIENT NOT FASTINGP ERFORMED BY: [facility] [address] [id number] BY: [facility] Mlqaoj4006 Mar [facility] [id number] NMR Profile (31486) 106 mg/dL Abnormal 0-99 [facility] Internal Medicine Work Phone: Comment on above: . Optimal < 100 Abov e optimal 100 - 129 Borderline 130 - 159 High 160 - 189 Very high > 189 .LDL-C is inaccurate if patient is non-fasting. PATIENT NOT FASTINGP ERFORMED BY: [facility] [address] [id number] BY: [facility] Qspjxc8805 Mar [facility] [id number] NMR Profile (06199) 39 mg/dL Abnormal [facility] Internal Medicine Work Phone: Comment on above: PATIENT NOT FASTINGP ERFORMED BY: Lab[address] [id number] BY: [facility] Iqilgl9969 [facility] [id number] T3, FREE (TRIDOTHYRONINE) (6 0331)Ordered By: Corrosion Technician on 02-18-2019 Free T3 [Mass/Vol] 2.6 pg/mL Normal 2.0-4.4 [facility] Internal Medicine Work Phone: Comment on above: PATIENT NOT FASTINGP ERFORMED BY: [facility] [address] [id number] BY: [facility] Pacygh2548 Mar [facility]in [place] [id number] T4, FREE (THYROXINE) (77022) Ordered By: Corrosion Technician on 02-18-2019 Free T4 [Mass/Vol] 1.07 ng/dL Normal 0.82-1.77 Compre hensive Internal Medicine Work Phone: Comment on above: PATIENT NOT FASTINGP ERFORMED BY: [facility] [address] [id number] BY: CHERYL [facility] Apwomi5083 Mar RoadDublin [place] [id number] TSH (66400)Ordered By: The Start Projecte m Career Orientation Teacher on 02-18-2019 TSH Qn 2.350 {uIU/mL} Normal 0.450-4.500 Comprehen sive Internal Medicine Work Phone: Comment on above: PATIENT NOT FASTINGP ERFORMED BY: [facility] [address] [id number] BY: CB [facility] Fkrvwv0735 Mar RoadDublin [place] [id number] URINALYSIS, W/ MICRO (67135) Ordered By: Corrosion Technician on 02-18-2019 Appearance (U) Clear Normal Comprehens nataly Internal Medicine Work Phone: Comment on above: PATIENT NOT FASTINGP ERFORMED BY: [facility] [address] [id number] BY: CHERYL [facility] Jnezcc1576 Mar RoadDublin [place] [id number] Bilirubin Ql (U) Negative Normal Comprehe nsive Internal Medicine Work Phone: Comment on above: PATIENT NOT FASTINGP ERFORMED BY: BN [facility] [address] [id number] BY: CB [facility] Pizfrz2597 Mar RoadDublin [place] [id number] Bilirubin Ql (U) Negative Normal Comprehe nsive Internal Medicine; [facility] Work Phone: Comment on above: PATIENT NOT FASTINGP ERFORMED BY: [facility] [address] [id number] BY: CB [facility] Kgvtso8989 Mar RoadDublin [place] [id number] Color (U) Yellow Normal [facility] Work Phone: Comment on above: PATIENT NOT FASTINGP ERFORMED BY: [facility] [id number] BY: CHERYL [facility] Rtctrp0086 Mar RoadDublin [place] [id number] Glucose Ql (U) 3+ Abnormal Comprehens [facility] Internal Medicine Work Phone: Comment on above: PATIENT NOT FASTINGP ERFORMED BY: [facility] [address] [id number] BY: CHERYL [facility] Zardji0323 Mar RoadDublin [place] [id number] Hemoglobin Ql (U) Negative Normal Compreh ensive Internal Medicine Work Phone: Comment on above: PATIENT NOT FASTINGP ERFORMED BY: [facility] [id number] BY: CHERYL [facility] Qswsos4471 Mar RoadDublin [place] [id number] Hemoglobin Ql (U) Negative Normal Compreh ensive Internal Medicine; [facility] Work Phone: Comment on above: PATIENT NOT FASTINGP ERFORMED BY: Lab[address] [id number] BY: CHERYL [facility] Xagzhy7666 Mar RoadDublin [place] [id number] Ketones Ql (U) 2+ Abnormal Comprehens nataly Internal Medicine Work Phone: Comment on above: PATIENT NOT FASTINGP ERFORMED BY: Lab[address] [id number] BY: CHERYL [facility] Semgqu1247 Mar RoadDublin [place] [id number] Leukocyte esterase Test strip Ql (U) Negative Normal [facility] Work Phone: Comment on above: PATIENT NOT FASTINGP ERFORMED BY: [facility] [id number] BY: CHERYL [facility] Tlouwf7659 Mar RoadDublin [place] [id number] Leukocyte esterase Test strip Ql (U) Negative Normal [facility]; [facility] Work Phone: Comment on above: PATIENT NOT FASTINGP ERFORMED BY: [address] [id number] BY: Lab[facility] Ufnbgh3167 Mar RoadDublin [place] [id number] Microscopic observation LM Nom (Urine sed) MICRON Normal [facility] Work Phone: Comment on above: Microscopic follows if indicated. PATIENT NOT FASTINGP ERFORMED BY: [address] [id number] BY: [place] [id number] Mar RoadDublin [place] [id number] Microscopic observation LM Nom (Urine sed) See below: Normal [facility] Work Phone: Comment on above: Microscopic was yue cated and was performed. PATIENT NOT FASTINGP ERFORMED BY: [address] [id number] BY: LabTr[facility]6370 [address] RoadDublin [place] [id number] Nitrite Ql (U) Negative Normal Comprehens nat[facility] Medicine Work Phone: Comment on above: PATIENT NOT FASTINGP ERFORMED BY: [address] [id number] BY: LabTr[facility]6370 [address] RoadDublin [place] [id number] Nitrite Ql (U) Negative Normal Comprehens nataly [facility] Medicine; [facility] Work Phone: Comment on above: PATIENT NOT FASTINGP ERFORMED BY: [address] [id number] BY: [facility] Wczxpg0692 Mar RoadDublin [place] [id number] pH (U) 5.5 [pH] Normal 5.0-7.5 [facility] Work Phone: Comment on above: PATIENT NOT FASTINGP ERFORMED BY: [facility] [address] [id number] BY: CHERYL [facility] Wsfvbv2947 Mar RoadDublin [place] [id number] Protein Ql (U) Negative Normal Comprehens [facility] Medicine Work Phone: Comment on above: PATIENT NOT FASTINGP ERFORMED BY: BN [facility] [address] [id number] BY: CHERYL [facility] O[place]abo7747 Mar RoadDublin [place] [id number] Protein Ql (U) Negative Normal Comprehens [facility]; [facility] Work Phone: Comment on above: PATIENT NOT FASTINGP ERFORMED BY: [facility] [address] [id number] BY: CHERYL [facility] Flcugm8430 Mar RoadDublin [place] [id number] Specific gravity (U) [Rel density] >=1.030 Abnormal 1.005-1.030 [facility] Work Phone: Comment on above: PATIENT NOT FASTINGP ERFORMED BY: [facility] [address] [id number] BY: CHERYL [facility] Fsbtjz2664 Mar RoadDublin [place] [id number] Urobilinogen (U) [Mass/Vol] 0.2 mg/dL Normal 0.2-1.0 [facility]; [facility] Work Phone: Comment on above: PATIENT NOT FASTINGP ERFORMED BY: [facility] [address] [id number] BY: CB [facility] Mkadut6136 Mar RoadDublin [place] [id number] Urobilinogen Test strip (U) [Mass/Vol] 0.2 mg/dL Normal 0.2-1.0 Comprehensi Internal Medicine Work Phone: Comment on above: PATIENT NOT FASTINGP ERFORMED BY: BN [facility] Ulwphqwbse3085 [facility] [id number] BY: CB [facility] Abqskm1197 [facility]Deaconess [facility] [id number] Office Visit: 3 month f/uon 03-27-2017 Alcoholism counseling (procedure) no Invalid Interpretation Code [facility] Work Phone: Documentation of current medications (procedure) Done Invalid Interpretation Code [facility] Work Phone: Fall risk assessment No Invalid Interpretation Code [facility] Work Phone: Tobacco smoking status NHIS Never Invalid Interpretation Code [facility] Work Phone: Tobacco use CPHS Never smoker Invalid Interpretation Code [facility] Work Phone: Chart Maintenanceon 02-09-20 17 Hemoglobin A1c/Hemoglobin.total mass fraction (Bld) 8.6 % Invalid Interpretation Code [facility] Work Phone: Lab Report: Comprehensive Tx tabolic Profilon 01-02-2017 Alanine aminotransferase (ALT) 19 U/L Invalid Interpretation Code 12-78 [facility] Work Phone: Albumin 3.6 g/dL Invalid Interpretation Code 3.4-5.0 [facility] Work Phone: Albumin/Globulin Ratio 1 {ratio} Invalid Interpretation Code 0.9-2.4 [facility] Work Phone: Alkaline phosphatase (ALP) 83 U/L Invalid Interpretation Code 45-117 [facility] Work Phone: Anion gap 8 mmol/L Invalid Interpretation Code 5-15 [facility] Work Phone: Aspartate aminotransferase (AST) 12 U/L Low 15-37 [facility] Work Phone: Bilirubin (total) 0.50 mg/dL Invalid Interpretation Code 0.20-1.00 [facility] Work Phone: BUN/Creatinine Ratio 16.5 RATIO Invalid Interpretation Code 10-20 [facility] Work Phone: Calcium 8.7 mg/dL Invalid Interpretation Code 8.5-10.1 [facility] Work Phone: Chloride 104 mmol/L Invalid Interpretation Code 98-107 [facility] Work Phone: CO2 26.0 mmol/L Invalid Interpretation Code 21.0-32.0 [facility] Work Phone: Creatinine 0.79 mg/dL Invalid Interpretation Code 0.55-1.02 [facility] Work Phone: eGFR (non-black) 81 mL/min/{1.73_m2} Invalid Interpretation Code >60 [facility] Work Phone: eGFR (non-black) 98 mL/min/{1.73_m2} Invalid Interpretation Code >60 [facility] Work Phone: Globulin 3.7 g/dL High 2.3-3.5 [facility] Work Phone: Glucose mass conc 261 mg/dL High 70-110 [facility] Work Phone: Potassium molar conc 4.3 mmol/L Invalid Interpretation Code 3.5-5.1 [facility] Work Phone: Protein 7.3 g/dL Invalid Interpretation Code 6.4-8.2 [facility] Work Phone: Sodium 138 mmol/L Invalid Interpretation Code 136-145 [facility] Work Phone: Urea nitrogen 13 mg/dL Invalid Interpretation Code 7-18 [facility] Work Phone: Lab Report: Lipid Profileon 01-02-2017 Cholesterol 132 mg/dL Invalid Interpretation Code 200 [facility] Work Phone: HDL Cholesterol 32 mg/dL Low [facility] Work Phone: LDL Cholesterol 75 mg/dL Invalid Interpretation Code 0-130 [facility] Work Phone: Triglyceride 124 mg/dL Invalid Interpretation Code [facility] Work Phone: very low density lipoproteins 25 mg/dL Invalid Interpretation Code 5-40 [facility] Work Phone: Lab Report: Microalb:Creat R atio,Random URon 01-02-2017 ACR (microalbumin/creatin ine) ratio 5.2 MG/G CRE Invalid Interpretation Code <30 mg/g CRE [facility] Work Phone: Urine, creatinine 106.00 mg/dL Invalid Interpretation Code NO RANGE EST. [facility] Work Phone: Urine, microalbumin 0.55 mg/dL Invalid Interpretation Code Units converted. See lab report for original value. [facility] Work Phone: FERRITIN (37115)Ordered By: Corrosion Technician on 04-01-2015 Ferritin mass conc 73 ng/mL Normal 15-150 [facility] Internal Medicine Work Phone: Comment on above: today; PATIENT NOT F ASTINGPERFORMED BY: CB [facility] Jkblzd7710 Mar RoadDublin [place] [id number] IRON & TOTAL IRON BINDING CA PACITY (47921)Ordered By: Corrosion Technician on 04-01-2015 Iron binding capacity mass conc 395 ug/dL Normal 250-450 [facility] Internal Medicine Work Phone: Comment on above: today; PATIENT NOT F ASTINGPERFORMED BY: CB [facility] Nviebq9067 Mar RoadDublin [place] [id number] Information: [id number] Iron binding capacity.unsaturated mass conc 23 ug/dL Abnormal 150-375 [facility] Work Phone: Comment on above: today; PATIENT NOT F ASTINGPERFORMED BY: CB [facility] Zqijxv9221 [address] RoadDublin [place] [id number] Information: [id number] Iron mass conc 372 ug/dL Abnormal 35-155 [facility] Internal Medicine Work Phone: Comment on above: today; PATIENT NOT F ASTINGPERFORMED BY: CB [facility] Enmoyj9981 [address] RoadDublin [place] [id number] Information: [id number],[id number] Iron saturation mass fraction 94 % Abnormal 15-55 [facility] Work Phone: Comment on above: today; PATIENT NOT F ASTINGPERFORMED BY: CB [facility] Wfogiu3469 Mar RoadDublin [place] [id number] Information: [id number] NADIRA (ANTINUCLEAR ANTIBODY) ( 99395)Ordered By: Corrosion Technician on 03-30-2015 Nuclear Ab Ql (S) Negative Normal Compreh ensive Internal Medicine Work Phone: Comment on above: PATIENT NOT FASTINGP ERFORMED BY: CB [facility] Gcskok3704 [address] RoadDublin [place] [id number] Nuclear Ab Ql (S) Negative Normal Compreh ensive Internal Medicine; [facility] Work Phone: Comment on above: PATIENT NOT FASTINGP ERFORMED BY: CB [facility] Nvgcsu2105 Mar RoadDublin [place] [id number] C-REACTIVE PROTEIN (00260)Or dered By: Corrosion Technician on 03-30-2015 CRP mass conc 1.2 mg/L Normal 0.0-4.9 Comprehensi ve Internal Medicine Work Phone: Comment on above: PATIENT NOT FASTINGP ERFORMED BY: CB [facility] Fpqqan7166 [address] RoadDublin [place] [id number] CALCIFIDIOL (09080) VIT D 25 Ordered By: Corrosion Technician on 03-30-2015 25-Hydroxyvitamin D2+25-Hydroxyvitamin D3 mass conc 41.2 ng/mL Normal 30.0-100.0 [facility] Work Phone: Comment on above: Vitamin D deficiency has been defined by the [place] and an Endocrine Society practice guideline as alevel of serum 25-OH vitamin D less than 20 ng/mL (1,2).The Endocrine Society went on to further define vitamin Dinsufficiency as a level between 21 and 29 ng/mL (2).1. IOM ([place]). 2010. Dietary reference intakes for calcium and D. [place]: The National Academies Press.2. Natalie MF, Janeth [place], Judy JENSEN, et al. Evaluation, treatment, and prevention of vitamin D deficiency: an Endocrine Society clinical practice guideline. JCEM. 2010; 96(7):1911-30. PATIENT NOT FASTINGP ERFORMED BY: CB [facility] Depilu5395 Mar RoadDublin [place] [id number] CBC (AUTO) (21204)Ordered By : Corrosion Technician on 03-30-2015 Erythrocyte distribution width Ratio (RBC) 14.3 % Normal 12.3-15.4 [facility] Work Phone: Comment on above: PATIENT NOT FASTINGP ERFORMED BY: CB [facility] Vhjjwd5597 [address] RoadDublin [place] [id number] Hematocrit Volume Fraction (Bld) 33.7 % Abnormal 34.0-46.6 [facility] Work Phone: Comment on above: PATIENT NOT FASTINGP ERFORMED BY: CB [facility] Fwznli5633 [address] RoadDublin [place] [id number] Hemoglobin mass conc (Bld) 10.6 g/dL Abnormal 11.1-15.9 [facility] Work Phone: Comment on above: PATIENT NOT FASTINGP ERFORMED BY: CB [facility] Gkyiok8225 [address] RoadDublin [place] [id number] MCH Entitic mass (RBC) 28.3 pg Normal 26.6-33.0 [facility] Work Phone: Comment on above: PATIENT NOT FASTINGP ERFORMED BY: CB [facility] Utyktw3547 Mar RoadDublin [place] [id number] MCHC mass conc (RBC) 31.5 g/dL Normal 31.5-35.7 [facility] Internal Medicine Work Phone: Comment on above: PATIENT NOT FASTINGP ERFORMED BY: CB [facility] Qnrlab1542 Mar RoadDublin [place] [id number] MCV Entitic volume (RBC) 90 fL Normal 79-97 [facility] Work Phone: Comment on above: PATIENT NOT FASTINGP ERFORMED BY: CB [facility] Imdaqe8229 Mar RoadDublin [place] [id number] Platelets #/vol (Bld) 337 {x10E3/uL} Normal 150-379 [facility] Work Phone: Comment on above: PATIENT NOT FASTINGP ERFORMED BY: CB [facility] Mxtbri9128 Mar RoadDublin [place] [id number] Platelets (Bld) [#/Vol] 337 10*3/uL Normal 150-379 [facility]; [facility] Work Phone: Comment on above: PATIENT NOT FASTINGP ERFORMED BY: CB [facility] Abnisq2653 Mar RoadDublin [place] [id number] RBC #/vol (Bld) 3.74 {x10E6/uL} Abnormal 3.77-5.28 [facility] Work Phone: Comment on above: PATIENT NOT FASTINGP ERFORMED BY: CB [facility] Xeovym6527 Mar RoadDublin [place] [id number] RBC (Bld) [#/Vol] 3.74 10*6/uL Abnormal 3.77-5.28 Compr ensive Internal Medicine; [facility] Work Phone: Comment on above: PATIENT NOT FASTINGP ERFORMED BY: CB [facility] Utmhzc0340 Mar RoadDublin [place] [id number] WBC #/vol (Bld) 8.0 {x10E3/uL} Normal 3.4-10.8 Compr ensive Internal Medicine Work Phone: Comment on above: PATIENT NOT FASTINGP ERFORMED BY: CB [facility] Jhgdot7208 Mar RoadDublin [place] [id number] WBC (Bld) [#/Vol] 8.0 10*3/uL Normal 3.4-10.8 [facility]pre [facility] Internal Medicine; [facility] Work Phone: Comment on above: PATIENT NOT FASTINGP ERFORMED BY: CB [facility] Qwjjcl5171 Mar RoadDublin [place] [id number] Folate (66412)Ordered By: Reid stem Career Orientation Teacher on 03-30-2015 Folate mass conc ng/mL Normal Comprehe nsive Internal Medicine Work Phone: Comment on above: A serum folate dex ntration of less than 3.1 ng/mL isconsidered to represent clinical deficiency. PATIENT NOT FASTINGP ERFORMED BY: CHERYL Harris6370 MarDe[facility] [id number] METABOLIC PANEL, COMPREHENSI VE (14952)Ordered By: Corrosion Technician on 03-30-2015 Albumin mass conc 4.1 g/dL Normal 3.5-5.5 Compreh [facility] Internal Medicine Work Phone: Comment on above: PATIENT NOT FASTINGP ERFORMED BY: CHERYL [facility] Qjxwjn2703 [facility] [id number] Information: [id number],[id number] Albumin/Globulin mass ratio 1.6 {ratio} Normal 1.1-2.5 [facility] Work Phone: Comment on above: PATIENT NOT FASTINGP ERFORMED BY: CHERYL Simon Nivreb7735 [facility] [id number] Information: 147762,[id number] ALP [Catalytic activity/Vol] 71 U/L Normal 39-117 [facility]; [facility] Work Phone: Comment on above: PATIENT NOT FASTINGP ERFORMED BY: CHERYL [facility] Ruimqw8615 [facility] [id number] Information: 564306,[id number] ALP enzyme act/vol 71 [iU]/L Normal 39-117 [facility] Internal Medicine Work Phone: Comment on above: PATIENT NOT FASTINGP ERFORMED BY: [facility] Okuawo1364 [facility] [id number] Information: 381550,S70563 ALT [Catalytic activity/Vol] 17 U/L Normal 0-32 [facility]; [facility] Work Phone: Comment on above: PATIENT NOT FASTINGP ERFORMED BY: CHERYL [facility] Mhngwe2280 [facility] [id number] Information: 247614,G75819 ALT enzyme act/vol 17 [iU]/L Normal 0-32 [facility] Internal Medicine Work Phone: Comment on above: PATIENT NOT FASTINGP ERFORMED BY: CHERYL [facility] Jrdfzh2735 Mar RoadDublin [place] [id number] Information: 316030,[id number] AST [Catalytic activity/Vol] 19 U/L Normal 0-40 [facility]; [facility] Work Phone: Comment on above: PATIENT NOT FASTINGP ERFORMED BY: CB [facility] Yeinov1072 Mar RoadDublin [place] [id number] Information: 588442,R09175 AST enzyme act/vol 19 [iU]/L Normal 0-40 Compre [facility] Internal Medicine Work Phone: Comment on above: PATIENT NOT FASTINGP ERFORMED BY: CB [facility] Ysxagt6003 [address] RoadDublin [place] [id number] Information: 806145,Z45036 Bilirubin [Mass/Vol] mg/dL Normal 0.0-1.2 [facility]; [facility] Work Phone: Comment on above: PATIENT NOT FASTINGP ERFORMED BY: CB [facility] Pspfgl9217 Mar RoadDublin [place] [id number] Information: 507582,X41450 Bilirubin mass conc mg/dL Normal 0.0-1.2 Compr ensive Internal Medicine Work Phone: Comment on above: PATIENT NOT FASTINGP ERFORMED BY: CB [facility] Xrxipm9491 Mar RoadDublin [place] [id number] Information: 665675,G91095 Calcium mass conc 10.0 mg/dL Normal 8.7-10.2 Compreh [facility] Internal Medicine Work Phone: Comment on above: PATIENT NOT FASTINGP ERFORMED BY: CB [facility] Ropnqs5195 Mar RoadDublin [place] [id number] Information: 254307,J77711 Chloride molar conc 99 mmol/L Normal 97-108 Compr ensive Internal Medicine Work Phone: Comment on above: PATIENT NOT FASTINGP ERFORMED BY: CB [facility] Hhdgpi8020 Mar RoadDublin [place] [id number] Information: 766703,F58744 CO2 molar conc 24 mmol/L Normal 18-29 Comprehens nataly Internal Medicine Work Phone: Comment on above: PATIENT NOT FASTINGP ERFORMED BY: CHERYL Simon Cvtcvf2171 [facility] [id number] Information: 410390,X71900 Creatinine mass conc 0.71 mg/dL Normal 0.57-1.00 Comp rehensive Internal Medicine Work Phone: Comment on above: PATIENT NOT FASTINGP ERFORMED BY: [place] 4086570 [facility] [id number] Information: 208056,K59873 GFR/1.73 sq M predicted among blacks CKD-EPI vol rate/area (S/P/Bld) 113 mL/min/1.73 Normal Comprehensiv e Internal Medicine Work Phone: Comment on above: PATIENT NOT FASTINGP ERFORMED BY: [place] 4086570 [facility] [id number] Information: 881338,H82733 GFR/1.73 sq M predicted among non-blacks CKD-EPI vol rate/area (S/P/Bld) 98 mL/min/1.73 Normal [facility] Work Phone: Comment on above: PATIENT NOT FASTINGP ERFORMED BY: [place] 4086570 [facility] [id number] Information: 100181,E49110 Globulin mass conc (S) 2.6 g/dL Normal 1.5-4.5 [facility] Work Phone: Comment on above: PATIENT NOT FASTINGP ERFORMED BY: LabAndrea Ville 0329070 [facility] [id number] Information: 391726,L18445 Glucose mass conc 194 mg/dL Abnormal 65-99 Compreh ensive Internal Medicine Work Phone: Comment on above: PATIENT NOT FASTINGP ERFORMED BY: [place] 4086570 [facility] [id number] Information: 458723,L86101 Potassium molar conc 4.9 mmol/L Normal 3.5-5.2 Comp rehensive Internal Medicine Work Phone: Comment on above: PATIENT NOT FASTINGP ERFORMED BY: CHERYL Harris6370 [facility] [id number] Information: 207966,O06826 Protein mass conc 6.7 g/dL Normal 6.0-8.5 Compreh ensive Internal Medicine Work Phone: Comment on above: PATIENT NOT FASTINGP ERFORMED BY: CHERYL Simon Xhfrcd0701 [facility] [id number] Information: 994471,C41975 Sodium molar conc 137 mmol/L Normal 134-144 Compreh ensive Internal Medicine Work Phone: Comment on above: PATIENT NOT FASTINGP ERFORMED BY: CHERYL Simon Tdqzzz2716 [facility] [id number] Information: 587644,H64532 Urea nitrogen mass conc 12 mg/dL Normal 6-24 [facility] Work Phone: Comment on above: PATIENT NOT FASTINGP ERFORMED BY: CHERYL Enamoradolin6370 [facility] [id number] Information: 308316,R39352 Urea nitrogen/Creatinine mass ratio 17 mg/mg Normal 9-23 [facility] Work Phone: Comment on above: PATIENT NOT FASTINGP ERFORMED BY: DawnCoMelissa [place] 2794470 [facility] [id number] Information: 938628,Z76414 RHEUMATOID FACTOR-QUANT (825 31)Ordered By: Corrosion Technician on 03-30-2015 Rheumatoid factor Qn 8.0 {IU/mL} Normal 0.0-13.9 Com prehensive Internal Medicine Work Phone: Comment on above: PATIENT NOT FASTINGP ERFORMED BY: CHERYL SeymourTrinity Health Muskegon Hospital6370 [facility] [id number] Rheumatoid factor Qn 8.0 [IU]/mL Normal 0.0-13.9 Com prehensive Internal Medicine; [facility] Work Phone: Comment on above: PATIENT NOT FASTINGP ERFORMED BY: CB [facility] Crpqdf2432 Mar [employer] [id number] SED RATE ERYTHROCYTE (55121) Ordered By: Corrosion Technician on 03-30-2015 ESR Velocity (Bld) 3 mm/h Normal 0-40 Compre hensive Internal Medicine Work Phone: Comment on above: PATIENT NOT FASTINGP ERFORMED BY: CB [facility] Mefahs0990 [facility] [id number] URINE JOSE CULTURE-DOLORES COL C OUNT (56300)Ordered By: Corrosion Technician on 03-30-2015 Bacteria identified Cx Nom (U) MUG Normal [facility] Work Phone: Comment on above: Mixed urogenital rhoda ra50,000-100,000 colony forming units per mL PATIENT NOT FASTINGP ERFORMED BY: CB [facility] Ehqgdi0856 [facility] [id number] Information: SRC:UR [id number] Bacteria identified Cx Nom (U) Final report Normal [facility] Work Phone: Comment on above: PATIENT NOT FASTINGP ERFORMED BY: [employer] Labjslyhlrp Hnhscw0940 [facility] [id number] Information: SRC:UR [id number] Urinalysis, Office (40249)on 03-30-2015 Bilirubin Ql (U) Negative Normal Comprehe nsive Internal Medicine Work Phone: Bilirubin Ql (U) Negative Normal Comprehe nsive Internal Medicine; [facility] Work Phone: Glucose Test strip mass conc (U) 500 1 Abnormal [facility] Work Phone: Hemoglobin Ql (U) Non Hemolyzed Moderate Normal [facility] Work Phone: Ketones Ql (U) Negative Normal Comprehens nataly Internal Medicine Work Phone: Ketones Ql (U) Negative Normal Comprehens nataly Internal Medicine; [facility] Work Phone: Leukocyte esterase Test strip Ql (U) Negative Normal [facility] Work Phone: Leukocyte esterase Test strip Ql (U) Negative Normal [facility]; [facility] Work Phone: Nitrite Ql (U) Negative Normal Comprehens nataly Internal Medicine Work Phone: Nitrite Ql (U) Negative Normal Comprehens nataly Internal Medicine; [facility] Work Phone: pH (U) 6.0 [pH] Normal [facility] Work Phone: Comment on above: 5.5 Protein Ql (U) Negative Normal Comprehens nataly Internal Medicine Work Phone: Protein Ql (U) Negative Normal Comprehens nataly Internal Medicine; [facility] Work Phone: Specific gravity Relative Density (U) 1.015 1 Normal Comprehensi Internal Medicine Work Phone: Urobilinogen mass/time (24H U) Normal Normal [facility] Work Phone: VITAMIN B-12 (CYANOCOBALAMIN ) (37226)Ordered By: Corrosion Technician on 03-30-2015 Cobalamin (Vitamin B12) mass conc 741 pg/mL Normal 211-946 [facility] Internal Medicine Work Phone: Comment on above: PATIENT NOT FASTINGP ERFORMED BY: Cydan6370 [facility]aNov[facility] [id number] CBC, Platelets & Auto Diff ( 75535)Ordered By: Corrosion Technician on 03-24-2015 Basophils #/vol (Bld) 0.1 {x10E3/uL} Normal 0.0-0.2 [facility] Work Phone: Comment on above: PATIENT NOT FASTINGP ERFORMED BY: [employer]70 [facility]eedaNov[facility] [id number] Information: 611775,Z75353 Basophils (Bld) [#/Vol] 0.1 10*3/uL Normal 0.0-0.2 [facility]; [facility] Work Phone: Comment on above: PATIENT NOT FASTINGP ERFORMED BY: CHERYL Simon Yguztk2698 [facility] [id number] Information: 013689,K58657 Basophils/100 WBC (Bld) 0 % Normal [facility] Work Phone: Comment on above: PATIENT NOT FASTINGP ERFORMED BY: CHERYL [facility] Sgjtbn0272 [facility] [id number] Information: 289383,U68172 Eosinophils #/vol (Bld) 0.5 {x10E3/uL} Abnormal 0.0-0.4 [facility] Work Phone: Comment on above: PATIENT NOT FASTINGP ERFORMED BY: CHERYL Simon Ntewyy0045 [facility] [id number] Information: 312602,L13814 Eosinophils (Bld) [#/Vol] 0.5 10*3/uL Abnormal 0.0-0.4 [facility]; [facility] Work Phone: Comment on above: PATIENT NOT FASTINGP ERFORMED BY: CHERYL SeymourCo Pnzenx6386 [facility] [id number] Information: 096967,G85990 Eosinophils/100 WBC (Bld) 4 % Normal [facility] Work Phone: Comment on above: PATIENT NOT FASTINGP ERFORMED BY: LabCoSaint Barnabas Medical CenterHekjkg1255 [facility] [id number] Information: 269875,S93413 Erythrocyte distribution width Ratio (RBC) 14.1 % Normal 12.3-15.4 [facility] Work Phone: Comment on above: PATIENT NOT FASTINGP ERFORMED BY: CB LabCoSaint Barnabas Medical CenterCyykoy9784 [facility] [id number] Information: 522437,G16383 Hematocrit Volume Fraction (Bld) 36.1 % Normal 34.0-46.6 [facility] Work Phone: Comment on above: PATIENT NOT FASTINGP ERFORMED BY: CB LabCoSaint Barnabas Medical CenterOicuxe3441 [facility] [id number] Information: 091167,Z59070 Hemoglobin mass conc (Bld) 11.5 g/dL Normal 11.1-15.9 [facility] Work Phone: Comment on above: PATIENT NOT FASTINGP ERFORMED BY: CHERYL Simon[address] [id number] Information: 880793,P96434 Immature granulocytes #/vol (Bld) 0.0 {x10E3/uL} Normal 0.0-0.1 [facility] Work Phone: Comment on above: PATIENT NOT FASTINGP ERFORMED BY: CHERYL Simon Miniat[address] [id number] Information: 744961,E11962 Immature granulocytes (Bld) [#/Vol] 0.0 10*3/uL Normal 0.0-0.1 [facility]; [facility] Work Phone: Comment on above: PATIENT NOT FASTINGP ERFORMED BY: CHERYL SimonMelissa V[place] 2794470 [facility] [id number] Information: 368287,I71771 Immature granulocytes/100 WBC (Bld) 0 % Normal [facility] Work Phone: Comment on above: PATIENT NOT FASTINGP ERFORMED BY: [address] [id number] Information: [id number] Lymphocytes #/vol (Bld) 2.4 {x10E3/uL} Normal 0.7-3.1 [facility] Work Phone: Comment on above: PATIENT NOT FASTINGP ERFORMED BY: CHERYL Seymour[address] [id number] Information: 172632,G01703 Lymphocytes (Bld) [#/Vol] 2.4 10*3/uL Normal 0.7-3.1 [facility]; [facility] Work Phone: Comment on above: PATIENT NOT FASTINGP ERFORMED BY: CHERYL DawnCojaquelin EnamoradoLsgndo5576 [facility] [id number] Information: 167640,R25262 Lymphocytes/100 WBC (Bld) 20 % Normal [facility] Work Phone: Comment on above: PATIENT NOT FASTINGP ERFORMED BY: LabCo[address] [id number] Information: 576867,V68816 MCH Entitic mass (RBC) 28.2 pg Normal 26.6-33.0 [facility] Work Phone: Comment on above: PATIENT NOT FASTINGP ERFORMED BY: CHERYL Aurora Xpqlwg8[address] [id number] Information: 025685,O71231 MCHC mass conc (RBC) 31.9 g/dL Normal 31.5-35.7 [facility] Internal Medicine Work Phone: Comment on above: PATIENT NOT FASTINGP ERFORMED BY: CHERYL DawnCo[address] [id number] Information: 519781,H39803 MCV Entitic volume (RBC) 89 fL Normal 79-97 [facility] Work Phone: Comment on above: PATIENT NOT FASTINGP ERFORMED BY: CHERYL Aurora Bfwfkc[address] [id number] Information: [id number] Monocytes #/vol (Bld) 1.0 {x10E3/uL} Abnormal 0.1-0.9 [facility] Work Phone: Comment on above: PATIENT NOT FASTINGP ERFORMED BY: LabCoMelissa Ville 2794470 [facility] [id number] Information: 687765,M08657 Monocytes (Bld) [#/Vol] 1.0 10*3/uL Abnormal 0.1-0.9 [facility]; [facility] Work Phone: Comment on above: PATIENT NOT FASTINGP ERFORMED BY: CHERYL Harris6370 Mar [facility] [place] [id number] Information: 024940,E39831 Monocytes/100 WBC (Bld) 9 % Normal [facility] Work Phone: Comment on above: PATIENT NOT FASTINGP ERFORMED BY: CHERYL Harris6370 Mar [facility] [place] [id number] Information: 376456,Q46846 Neutrophils #/vol (Bld) 7.9 {x10E3/uL} Abnormal 1.4-7.0 [facility] Work Phone: Comment on above: PATIENT NOT FASTINGP ERFORMED BY: CHERYL Enamoradolin6370 Mar [facility] [id number] Information: 836539,V71746 Neutrophils (Bld) [#/Vol] 7.9 10*3/uL Abnormal 1.4-7.0 [facility]; [facility] Work Phone: Comment on above: PATIENT NOT FASTINGP ERFORMED BY: CHERYL Simon Ivicoj7077 Mar [facility] [id number] Information: 835128,Y00023 Neutrophils/100 WBC (Bld) 67 % Normal [facility] Work Phone: Comment on above: PATIENT NOT FASTINGP ERFORMED BY: CHERYL Simon Nikqof2790 [facility] [id number] Information: 015428,S16062 Platelets #/vol (Bld) 302 {x10E3/uL} Normal 150-379 [facility] Work Phone: Comment on above: PATIENT NOT FASTINGP ERFORMED BY: CHERYL [facility] Yoedpt3175 Mar [facility] [place] [id number] Information: 810062,X06535 Platelets (Bld) [#/Vol] 302 10*3/uL Normal 150-379 [facility]; [facility] Work Phone: Comment on above: PATIENT NOT FASTINGP ERFORMED BY: Lab[facility] Ezkvfy1892 Mar [facility] [id number] Information: 839467,Z26502 RBC #/vol (Bld) 4.08 {x10E6/uL} Normal 3.77-5.28 [facility] Work Phone: Comment on above: PATIENT NOT FASTINGP ERFORMED BY: CHERYL Aurora Cwioef9843 [facility] [id number] Information: 831452,H81960 RBC (Bld) [#/Vol] 4.08 10*6/uL Normal 3.77-5.28 Compr ensive Internal Medicine; [facility] Work Phone: Comment on above: PATIENT NOT FASTINGP ERFORMED BY: CHERYL Aurorajaquelin EnamoradoBbddjf4573 [facility] [id number] Information: 641520,R42422 WBC #/vol (Bld) 11.8 {x10E3/uL} Abnormal 3.4-10.8 [facility] Work Phone: Comment on above: PATIENT NOT FASTINGP ERFORMED BY: CHERYL Simon Flncwt3697 [facility] [id number] Information: 240996,K09619 WBC (Bld) [#/Vol] 11.8 10*3/uL Abnormal 3.4-10.8 Compr ensive Internal Medicine; [facility] Work Phone: Comment on above: PATIENT NOT FASTINGP ERFORMED BY: CHERYL DawnSaint [facility] Owclxg9069 [facility] [id number] Information: 628329,K60322 FSH AND LH (22685)Ordered By : Corrosion Technician on 03-24-2015 Follitropin Qn 4.7 m[IU]/mL Normal Comprehe ive Internal Medicine Work Phone: Comment on above: Follicular phase 3.5 - 12.5 Ovulation phase 4.7 - 21.5 Luteal phase 1.7 - 7.7 Postmenopausal 25.8 - 134.8 PATIENT NOT FASTINGP ERFORMED BY: CHERYL LabTrinity [facility] Hospital6370 [facility] [id number] Lutropin Qn 3.7 m[IU]/mL Normal Comprehensi ve Internal Medicine Work Phone: Comment on above: Follicular phase 2.4 - 12.6 Ovulation phase 14.0 - 95.6 Luteal phase 1.0 - 11.4 Postmenopausal 7.7 - 58.5 PATIENT NOT FASTINGP ERFORMED BY: [employer] Labjslyhl Htssbm1877 O3b NetworksSelect Specialty Hospital [facility] [id number] TSH (THYROID STIMULATING HOR ALEKSANDRA) (16588)Ordered By: Corrosion Technician on 03-24-2015 Thyrotropin Qn 2.430 {uIU/mL} Normal 0.450-4.500 Compr ehket[facility] Internal Medicine Work Phone: Comment on above: PATIENT NOT FASTINGP ERFORMED BY: CHERYL Labjslyhlrp Wabrdw6360 [facility]aNov[facility] [id number] Blood Glucose , Office (3196 2)Ordered By: Mignon Burgos on 07-03-2013 Glucose Glucometer molar conc (BldC) 203 1 Normal [facility] Work Phone: HgA1C , Office (89463)Ordere d By: Mignon Burgos on 07-03-2013 Hemoglobin A1c/Hemoglobin.total mass fraction (Bld) 6.7 % Normal 4.6 - 7.1 Comprehensiv e Internal Medicine Work Phone: LIPID PANEL (37772)Ordered B y: Corrosion Technician on 06-07-2013 Cholesterol in HDL mass conc 33 mg/dL Abnormal [facility] Work Phone: Comment on above: According to ATP-III Guidelines, HDL-C >59 mg/dL is considered anegative risk factor for CHD. PATIENT WAS FASTINGP ERFORMED BY: [employer] Jxvzjr0783 [facility]aNovant [facility] [id number] Cholesterol in LDL mass conc 150 mg/dL Abnormal 0-99 [facility] Work Phone: Comment on above: PATIENT WAS FASTINGP ERFORMED BY: [employer] Labjslyhlrp Serhzu8261 [facility] [id number] Cholesterol in LDL/Cholesterol in HDL mass ratio 4.5 {ratio_units} Abnormal 0.0-3.2 [facility] Work Phone: Comment on above: PATIENT WAS FASTINGP ERFORMED BY: CHERYL LabCojaquelin Vdnejk8256 [facility] [id number] Cholesterol in VLDL mass conc 15 mg/dL Normal 5-40 [facility] Work Phone: Comment on above: PATIENT WAS FASTINGP ERFORMED BY: CHERYL LabCo Wgpfna4579 [facility] [id number] Cholesterol mass conc 198 mg/dL Normal 100-199 [facility] prehensive Internal Medicine Work Phone: Comment on above: PATIENT WAS FASTINGP ERFORMED BY: CHERYL LabCo Yfolfo0803 [facility] [id number] Triglyceride mass conc 75 mg/dL Normal 0-149 [facility] Work Phone: Comment on above: PATIENT WAS FASTINGP ERFORMED BY: CHERYL [facility] Xudcrh1201 [facility] [id number] METABOLIC PANEL, COMPREHENSI VE (10742)Ordered By: Corrosion Technician on 06-07-2013 Albumin mass conc 4.1 g/dL Normal 3.5-5.5 Compreh ensive Internal Medicine Work Phone: Comment on above: PATIENT WAS FASTINGP ERFORMED BY: CHERYL Aurora Shkkft9090 [facility] [id number] Information: [id number],Z01953 Albumin/Globulin mass ratio 1.5 {ratio} Normal 1.1-2.5 [facility] Work Phone: Comment on above: PATIENT WAS FASTINGP ERFORMED BY: CHERYL LabCo Hmurnl5934 [facility] [id number] Information: 793847,G72701 ALP [Catalytic activity/Vol] 46 U/L Normal 39-117 [facility]; [facility] Work Phone: Comment on above: PATIENT WAS FASTINGP ERFORMED BY: CHERYL [facility] Esyuxx2768 [facility] [id number] Information: [id number] ALP enzyme act/vol 46 [iU]/L Normal 39-117 [facility] Internal Medicine Work Phone: Comment on above: PATIENT WAS FASTINGP ERFORMED BY: CHERYL Harris6370 [facility] [id number] Information: [id number] ALT [Catalytic activity/Vol] 14 U/L Normal 0-32 [facility] Internal Medicine; [facility] Internal Medicine Work Phone: Comment on above: PATIENT WAS FASTINGP ERFORMED BY: DawnAndrea [place] [id number] [facility] [id number] Information: [id number] ALT enzyme act/vol 14 [iU]/L Normal 0-32 [facility] Internal Medicine Work Phone: Comment on above: PATIENT WAS FASTINGP ERFORMED BY: [facility] Cqcljp1531 [facility] [id number] Information: [id number] AST [Catalytic activity/Vol] 17 U/L Normal 0-40 [facility] Internal Medicine; [facility] Internal Medicine Work Phone: Comment on above: PATIENT WAS FASTINGP ERFORMED BY: [facility] Okptau4294 [facility] [id number] Information: [id number] AST enzyme act/vol 17 [iU]/L Normal 0-40 [facility] Internal Medicine Work Phone: Comment on above: PATIENT WAS FASTINGP ERFORMED BY: [place] [id number] [facility] [id number] Information: [id number] Bilirubin mass conc 0.4 mg/dL Normal 0.0-1.2 [facility] Internal Medicine Work Phone: Comment on above: PATIENT WAS FASTINGP ERFORMED BY: [facility]6370 [facility] [id number] Information: [id number] Calcium mass conc 9.7 mg/dL Normal 8.7-10.[address] [facility] Internal Medicine Work Phone: Comment on above: PATIENT WAS FASTINGP ERFORMED BY: CB [facility] Mszmpp3572 [facility] RoadDavis [facility] Centerin [place] [id number] Information: [id number] Chloride molar conc 104 mmol/L Normal 97-108 Compr ehensive Internal Medicine Work Phone: Comment on above: PATIENT WAS FASTINGP ERFORMED BY: CB [facility] Vozojn1934 [address] RoadDavis Regional Medical Centerin [place] [id number] Information: [id number] CO2 molar conc 22 mmol/L Normal 19-28 [facility] Internal Medicine Work Phone: Comment on above: PATIENT WAS FASTINGP ERFORMED BY: CB [facility] Tswepc4253 [facility] [id number] Information: [id number] Creatinine mass conc 0.85 mg/dL Normal 0.57-1.00 [facility] Work Phone: Comment on above: PATIENT WAS FASTINGP ERFORMED BY: CB [facility] [id number] [facility] [id number] Information: [id number] GFR/1.73 sq M predicted among blacks CKD-EPI vol rate/area (S/P/Bld) 92 mL/min/1.73 Normal Comprehensiv e Internal Medicine Work Phone: Comment on above: PATIENT WAS FASTINGP ERFORMED BY: CB [facility] [id number] [facility] [id number] Information: [id number] GFR/1.73 sq M predicted among non-blacks CKD-EPI vol rate/area (S/P/Bld) 80 mL/min/1.73 Normal [facility] Work Phone: Comment on above: PATIENT WAS FASTINGP ERFORMED BY: CB [facility] [id number] Mar [facility] [place] [id number] Information: [id number] Globulin mass conc (S) 2.8 g/dL Normal 1.5-4.5 [facility] Work Phone: Comment on above: PATIENT WAS FASTINGP ERFORMED BY: CHERYL [facility] [id number] Mar [facility] [place] [id number] Information: [id number] Glucose mass conc 124 mg/dL Abnormal 65-99 Compreh ensive Internal Medicine Work Phone: Comment on above: PATIENT WAS FASTINGP ERFORMED BY: CHERYL [facility] Iyjrug0262 [facility] [id number] Information: [id number] Potassium molar conc 4.5 mmol/L Normal 3.5-5.2 Comp rehensive Internal Medicine Work Phone: Comment on above: PATIENT WAS FASTINGP ERFORMED BY: CHERYL [facility] Lnjmjh0174 [facility] [id number] Information: [id number] Protein mass conc 6.9 g/dL Normal 6.0-8.5 Compreh ensive Internal Medicine Work Phone: Comment on above: PATIENT WAS FASTINGP ERFORMED BY: CHERYL [facility] Jzorks4802 [facility] [id number] Information: [id number] Sodium molar conc 139 mmol/L Normal 134-144 Compreh ensive Internal Medicine Work Phone: Comment on above: PATIENT WAS FASTINGP ERFORMED BY: CHERYL [facility] Smgija6746 [facility] [id number] Information: [id number] Urea nitrogen mass conc 16 mg/dL Normal 6-24 [facility] Work Phone: Comment on above: PATIENT WAS FASTINGP ERFORMED BY: [facility] Qixvwa6428 [facility] [id number] Information: [id number] Urea nitrogen/Creatinine mass ratio 19 mg/mg Normal 9-23 [facility] Work Phone: Comment on above: PATIENT WAS FASTINGP ERFORMED BY: [facility] Ayilom2539 [facility] [id number] Information: [id number] MICROALBUMINOrdered By: [employer] em Career Orientation Teacher on 06-07-2013 Albumin DL <= 20 mg/L mass conc (U) 14.4 ug/mL Normal 0.0-17.0 [facility] Work Phone: Comment on above: PATIENT WAS FASTINGP ERFORMED BY: CHERYL [facility] [id number] [address] RoadDublin [place] [id number] Albumin/Creatinine mass ratio (U) 6.9 {mg/g_creat} Normal 0.0-30.0 [facility] Work Phone: Comment on above: PATIENT WAS FASTINGP ERFORMED BY: CB [facility] [id number] Mar RoadDublin [place] [id number] Creatinine mass conc (U) 208.7 mg/dL Normal 15.0-278.0 [facility] Work Phone: Comment on above: PATIENT WAS FASTINGP ERFORMED BY: [facility] [id number] Mar RoadDublin [place] [id number] TSH ([id number])Ordered By: Syste m Career Orientation Teacher on 06-07-2013 Thyrotropin Qn 2.710 {uIU/mL} Normal 0.450-4.500 Compr ehensive Internal Medicine Work Phone: Comment on above: PATIENT WAS FASTINGP ERFORMED BY: CHERYL [facility] [id number] [address] RoadDublin [place] [id number] URINALYSIS, W/ MICRO ([id number]) Ordered By: Corrosion Technician on 06-07-2013 Appearance Nom (U) Clear Normal Compre hensive Internal Medicine Work Phone: Comment on above: PATIENT WAS FASTINGP ERFORMED BY: CB [facility] Iusuth5498 [address] RoadD[address] [place] [id number] Bilirubin Ql (U) Negative Normal Comprehe nsive Internal Medicine Work Phone: Comment on above: PATIENT WAS FASTINGP ERFORMED BY: CB [facility] [id number] [address] RoadD[address] [place] [id number] Bilirubin Ql (U) Negative Normal Comprehe nsive Internal Medicine; [facility] Work Phone: Comment on above: PATIENT WAS FASTINGP ERFORMED BY: CHREYL [facility] [id number] [address] RoadDublin [place] [id number] Color Nom (U) Yellow Normal Comprehensi ve Internal Medicine Work Phone: Comment on above: PATIENT WAS FASTINGP ERFORMED BY: CHERYL [facility] [id number] [address] RoadD[address] [place] [id number] Glucose Ql (U) Trace Abnormal Comprehens nataly Internal Medicine Work Phone: Comment on above: PATIENT WAS FASTINGP ERFORMED BY: CHERYL [facility] [id number] [address] RoadD[address] [place] [id number] Hemoglobin Ql (U) Negative Normal Compreh ensive Internal Medicine Work Phone: Comment on above: PATIENT WAS FASTINGP ERFORMED BY: CHERYL [facility] Kzhiop6693 [address] RoadD[address] [place] [id number] Hemoglobin Ql (U) Negative Normal Compreh ensive Internal Medicine; [facility] Work Phone: Comment on above: PATIENT WAS FASTINGP ERFORMED BY: CHERYL [facility] Ojiytk2712 [address] RoadD[address] [place] [id number] Ketones Ql (U) Negative Normal Comprehens nataly Internal Medicine Work Phone: Comment on above: PATIENT WAS FASTINGP ERFORMED BY: CHERYL [facility] Camjwo1144 [address] RoadD[address] [place] [id number] Ketones Ql (U) Negative Normal Comprehens nataly Internal Medicine; [facility] Work Phone: Comment on above: PATIENT WAS FASTINGP ERFORMED BY: CHERYL [facility] Jssqff3119 [address] RoadDublin [place] [id number] Leukocyte esterase Test strip Ql (U) Negative Normal [facility] Work Phone: Comment on above: PATIENT WAS FASTINGP ERFORMED BY: CHERYL [facility] Czefns7963 [address] RoadD[address] [place] [id number] Leukocyte esterase Test strip Ql (U) Negative Normal [facility]; [facility] Work Phone: Comment on above: PATIENT WAS FASTINGP ERFORMED BY: CHERYL [facility] [id number] [address] RoadD[address] [place] [id number] Microscopic observation LM Nom (Urine sed) See below: Normal [facility] Work Phone: Comment on above: PATIENT WAS FASTINGP ERFORMED BY: CHERYL [facility] Vynhlf1087 [address] RoadD[address] [place] [id number] Microscopic observation LM Nom (Urine sed) MICRON Normal [facility] Work Phone: Comment on above: Microscopic follows if indicated. PATIENT WAS FASTINGP ERFORMED BY: CHERYL [facility] [id number] [address] RoadD[address] [place] [id number] Nitrite Ql (U) Negative Normal Comprehens nat[facility] Internal Medicine Work Phone: Comment on above: PATIENT WAS FASTINGP ERFORMED BY: CHERYL [facility] Lmwsnu1666 [address] RoadD[address] [place] [id number] Nitrite Ql (U) Negative Normal Comprehens nataly Internal Medicine; [facility] Work Phone: Comment on above: PATIENT WAS FASTINGP ERFORMED BY: CHERYL LabCojaquelin EnamoradoNmhnik1108 [address] RoadDublin [place] [id number] pH (U) 5.0 [pH] Normal 5.0-7.5 [facility] Work Phone: Comment on above: PATIENT WAS FASTINGP ERFORMED BY: CHERYL [facility] [id number] [address] RoadD[address] [place] [id number] Protein Ql (U) Negative Normal Comprehens nataly Internal Medicine Work Phone: Comment on above: PATIENT WAS FASTINGP ERFORMED BY: CHERYL [facility] Kzucll2057 [address] RoadD[address] [place] [id number] Protein Ql (U) Negative Normal Comprehens nataly Internal Medicine; [facility] Work Phone: Comment on above: PATIENT WAS FASTINGP ERFORMED BY: CHERYL [facility] [id number] [address] RoadD[address] [place] [id number] Specific gravity Relative Density (U) 1.026 1 Normal 1.005-1.030 Comprehensi ve Internal Medicine Work Phone: Comment on above: PATIENT WAS FASTINGP ERFORMED BY: CB [facility] Bsknel2257 [address] [employer] [id number] Urobilinogen (U) [Mass/Vol] 0.2 mg/dL Normal 0.0-1.9 [facility]; [facility] Work Phone: Comment on above: PATIENT WAS FASTINGP ERFORMED BY: CB [facility] [id number] [address] RoadD[address] [place] [id number] Urobilinogen Test strip mass conc (U) 0.2 mg/dL Normal 0.0-1.9 Comprehensiv e Internal Medicine Work Phone: Comment on above: PATIENT WAS FASTINGP ERFORMED BY: CB [facility] [id number] [address] [employer] [id number] Blood Glucose , Office ([phone])Ordered By: Mignon Burgos on 04-02-2013 Glucose Glucometer molar conc (BldC) 108 1 Normal [facility] Work Phone: HgA1C , Office ([id number])Ordere d By: Mignon Burgos on 04-02-2013 Hemoglobin A1c/Hemoglobin.total mass fraction (Bld) 6.4 % Normal 4.6 - 7.1 Comprehensiv e Internal Medicine Work Phone: Vital Signs Date Time Vital Sign Value Performing Clinician Facility 02-12-2025 13:48-0400 Body height 157.48 cm Anila Mas NP-C Work Phone: [facility] 02-12-2025 13:48-0400 Body mass index (BMI) [Ratio] 29.2 kg/m2 Anila Mas NP-C Work Phone: [facility] 02-12-2025 13:48-0400 Body weight 72.57 kg Anila Mas NP-C Work Phone: [facility] 01-15-2025 15:00-0400 Body height 157.48 cm Anila Mas NP-C Work Phone: [facility] 01-15-2025 15:00-0400 Body mass index (BMI) [Ratio] 29.2 kg/m2 Anilabrittani Mas STROKE COORDINATOR-C Work Phone: 3(306)[phone] [place] [address] 01-15-2025 15:00-0400 Body weight 72.57 kg Anilajonny Mas STROKE COORDINATOR-C Work Phone: 7(212)[phone] [place] [address] 12-10-2024 12:58-0400 Body height 157.48 cm Anilabrittani Mas STROKE COORDINATOR-C Work Phone: 9(022)[phone] [place] [address] 12-10-2024 12:58-0400 Body mass index (BMI) [Ratio] 29.9 kg/m2 Anilajonny Mas STROKE COORDINATOR-C Work Phone: 3(649)[phone] [place] [address] 12-10-2024 12:58-0400 Body weight 74.1 kg Anilajonny Mas STROKE COORDINATOR-C Work Phone: 6(433)[phone] [place] [address] 12-10-2024 12:58-0400 Diastolic blood pressure 81 mm[Hg] Anilabrittani Mas STROKE COORDINATOR-C Work Phone: 5(918)[phone] [place] [address] 12-10-2024 12:58-0400 Heart rate 65 /min Anilajonny Mas STROKE COORDINATOR-C Work Phone: 6(885)[phone] [place] [address] 12-10-2024 12:58-0400 SaO2% (BldA) [Mass fraction] 95 % Anilajonny Mas STROKE COORDINATOR-C Work Phone: 1(304)[phone] [place] [address] 12-10-2024 12:58-0400 Systolic blood pressure 128 mm[Hg] Anila Mas STROKE COORDINATOR-C Work Phone: 4(077)[phone] [address] 08-15-2023 13:01-0500 Body height 157.[address] Cecy Alarcon Work Phone: [facility] 08-15-2023 13:01-0500 Body mass index (BMI) [Ratio] 28.5 kg/m2 Dr. Cecy Alarcon Work Phone: [facility] 08-15-2023 13:01-0500 Body temperature 98.6 [degF] Dr. Cecy Alarcon Work Phone: [facility] 08-15-2023 13:01-0500 Body weight 70.[address] Cecy Alarcon Work Phone: [facility] 08-15-2023 13:01-0500 Diastolic blood pressure 66 mm[Hg] Dr. Cecy Alarcon Work Phone: [facility] 08-15-2023 13:01-0500 Heart rate 82 /min Dr. Cecy Alarcon Work Phone: [facility] 08-15-2023 13:01-0500 Respiratory rate 18 /min Dr. Cecy Alarcon Work Phone: [facility] 08-15-2023 13:01-0500 SaO2% (BldA) [Mass fraction] 98 % Dr. Cecy Alarcon Work Phone: [facility] 08-15-2023 13:01-0500 Systolic blood pressure 148 mm[Hg] Dr. Cecy Alarcon Work Phone: [facility] 11-01-2022 13:08-0400 Body height 157.[address] Cecy Alarcon Work Phone: [facility] 11-01-2022 13:08-0400 Body mass index (BMI) [Ratio] 28.8 kg/m2 Dr. Cecy Alarcon Work Phone: [facility] 11-01-2022 13:08-0400 Body temperature 98.6 [degF] Dr. Cecy Alarcon Work Phone: [facility] 11-01-2022 13:08-0400 Body weight 71.[address] Cecy Alarcon Work Phone: [facility] 11-01-2022 13:08-0400 Diastolic blood pressure 71 mm[Hg] Dr. Cecy Alarcon Work Phone: [facility] 11-01-2022 13:08-0400 Heart rate 87 /min Dr. Cecy Alarcon Work Phone: [facility] 11-01-2022 13:08-0400 Respiratory rate 16 /min Dr. Cecy Alarcon Work Phone: [facility] 11-01-2022 13:08-0400 SaO2% (BldA) [Mass fraction] 96 % Dr. Cecy Alarcon Work Phone: [facility] 11-01-2022 13:08-0400 Systolic blood pressure 113 mm[Hg] Dr. Cecy Alarcon Work Phone: [facility] 12-21-2021 08:55-0400 Body temperature 98.1 [degF] Dr. Cecy Alarcon Work Phone: [facility] Work Phone: 12-21-2021 08:55-0400 Diastolic blood pressure 55 mm[Hg] Dr. Cecy Alarcon Work Phone: [facility] Work Phone: 12-21-2021 08:55-0400 Heart rate 62 /min Dr. Cecy Alarcon Work Phone: [facility] Work Phone: 12-21-2021 08:55-0400 Respiratory rate 16 /min Dr. Cecy Alarcon Work Phone: [facility] Work Phone: 12-21-2021 08:55-0400 SaO2% (BldA) [Mass fraction] 100 % Dr. Cecy Alarcon Work Phone: [facility] Work Phone: 12-21-2021 08:55-0400 Systolic blood pressure 109 mm[Hg] Dr. Cecy Alarcon Work Phone: [facility] Work Phone: 12-21-2021 07:25-0400 Body height 157.[address] Cecy Alarcon Work Phone: [facility] Work Phone: 12-21-2021 07:25-0400 Body mass index (BMI) [Ratio] 27.3 kg/m2 Dr. Cecy Alarcon Work Phone: [facility] Work Phone: 12-21-2021 07:25-0400 Body weight [address] Cecy Alarcon Work Phone: [facility] Work Phone: 11-30-2021 13:52-0400 Body height 157.[address] Cecy Alarcon Work Phone: [facility] Work Phone: 11-30-2021 13:52-0400 Body mass index (BMI) [Ratio] 28.3 kg/m2 Dr. Cecy Alarcon Work Phone: [facility] Work Phone: 11-30-2021 13:52-0400 Body temperature 95.8 [degF] Dr. Cecy Alarcon Work Phone: [facility] Work Phone: 11-30-2021 13:52-0400 Body weight 70.[address] Cecy Alarcon Work Phone: [facility] Work Phone: 11-30-2021 13:52-0400 Diastolic blood pressure 88 mm[Hg] Dr. Cecy Alarcon Work Phone: [facility] Work Phone: 11-30-2021 13:52-0400 Heart rate 86 /min Dr. Cecy Alarcon Work Phone: [facility] Work Phone: 11-30-2021 13:52-0400 Respiratory rate 18 /min Dr. Cecy Alarcon Work Phone: [facility] Work Phone: 11-30-2021 13:52-0400 SaO2% (BldA) [Mass fraction] 98 % Dr. Cecy Alarcon Work Phone: [facility] Work Phone: 11-30-2021 13:52-0400 Systolic blood pressure 124 mm[Hg] Dr. Cecy Alarcon Work Phone: [facility] Work Phone: 11-02-2021 14:14-0400 Body mass index (BMI) [Ratio] 28 kg/m2 Dr. Cecy Alarcon Work Phone: [facility] Work Phone: 11-02-2021 14:14-0400 Body weight 69.[address] Cecy Alarcon Work Phone: [facility] Work Phone: 11-22-2019 09:30-0400 BMI (Body Mass Index) 27.87 kg/m2 Torri Mistry [facility] Internal Medicine Work Phone: 11-22-2019 09:30-0400 Body Temperature 96.2 [degF] Torri Mistry [facility] Comprehensiv e Internal Medicine Work Phone: Comment on above: Method: Temporal 11-22-2019 09:30-0400 Body weight 69.12 kg Torri Mistry [facility] Medicine Work Phone: 11-22-2019 09:30-0400 BP Diastolic 82 mm[Hg] Torri Mistry [facility] Medicine Work Phone: Comment on above: Patient Position: Sitting; Cuff Location : Left Arm; Cuff Size: Standard 11-22-2019 09:30-0400 BP Systolic 128 mm[Hg] Torri Mistry [facility] Medicine Work Phone: Comment on above: Patient Position: Sitting; Cuff Location : Left Arm; Cuff Size: Standard 11-22-2019 09:30-0400 BSA (Body Surface Area) 1.7 m2 Torri Mistry RECOVERY RN [facility] Work Phone: 11-22-2019 09:30-0400 Height 157.48 cm Torri Mistry [facility] Work Phone: 11-22-2019 09:30-0400 Pulse (Heart Rate) 67 /min Torri Mistry CMA Comprehens [facility] Internal Medicine Work Phone: Comment on above: Pattern: Regular 11-22-2019 09:30-0400 Pulse Oximetry 99 % Cecy Alarcon [facility] Work Phone: Comment on above: Room air 11-22-2019 09:30-0400 Respiratory Rate 16 /min Torri Mistry CMA Comprehensiv e Internal Medicine Work Phone: Comment on above: Pattern: Unlabored 11-22-2019 09:30-0400 SaO2% (BldA) [Mass fraction] 99 % Torri Mistry CMA [facility]; [facility] Work Phone: Comment on above: Room air 11-21-2019 09:56-0400 BMI (Body Mass Index) 27.87 kg/m2 Torri Mistry CMA [facility] Work Phone: 11-21-2019 09:56-0400 Body Temperature 96.9 [degF] Torri Mistry CMA Comprehensiv e Internal Medicine Work Phone: Comment on above: Method: Temporal 11-21-2019 09:56-0400 Body weight 69.12 kg Torri Mistry CMA [facility] Work Phone: 11-21-2019 09:56-0400 BP Diastolic 82 mm[Hg] Torri Mistry RECOVERY RN [facility] Work Phone: Comment on above: Patient Position: Sitting; Cuff Location : Left Arm; Cuff Size: Standard 11-21-2019 09:56-0400 BP Systolic 118 mm[Hg] Torri Mistry CMA [facility] Work Phone: Comment on above: Patient Position: Sitting; Cuff Location : Left Arm; Cuff Size: Standard 11-21-2019 09:56-0400 BSA (Body Surface Area) 1.7 m2 Torri Mistry CMA [facility] Work Phone: 11-21-2019 09:56-0400 Height 157.48 cm Torri Mistry RECOVERY RN [facility] Work Phone: 11-21-2019 09:56-0400 Pulse (Heart Rate) 89 /min Torri Mistry RECOVERY RN Comprehens nataly Internal Medicine Work Phone: Comment on above: Pattern: Regular 11-21-2019 09:56-0400 Pulse Oximetry 98 % Cecy Jarrell [facility] Work Phone: Comment on above: Room air 11-21-2019 09:56-0400 Respiratory Rate 18 /min Torri Mistry RECOVERY RN Comprehensiv e Internal Medicine Work Phone: Comment on above: Pattern: Unlabored 11-21-2019 09:56-0400 SaO2% (BldA) [Mass fraction] 98 % Torri Mistry RECOVERY RN [facility]; [facility] Work Phone: Comment on above: Room air 02-18-2019 12:05-0400 BMI (Body Mass Index) 25.86 kg/m2 Mignon Burgos RN [facility] Work Phone: 02-18-2019 12:05-0400 Body weight 64.13 kg Mignon Burgos RN [facility] Work Phone: 02-18-2019 12:05-0400 BP Diastolic 78 mm[Hg] Mignon Burgos RN [facility] Work Phone: Comment on above: Patient Position: Sitting; Cuff Location : Right Arm; Cuff Size: Standard 02-18-2019 12:05-0400 BP Systolic 138 mm[Hg] Mignon Burgos RN [facility] Work Phone: Comment on above: Patient Position: Sitting; Cuff Location : Right Arm; Cuff Size: Standard 02-18-2019 12:05-0400 BSA (Body Surface Area) 1.65 m2 Mignon Burgos RN [facility] Work Phone: 02-18-2019 12:05-0400 Height 157.48 cm Mignon Burgos RN [facility] Work Phone: 02-18-2019 12:05-0400 Pulse (Heart Rate) 68 /min Mignon Burgos RN Comprehens [facility] Medicine Work Phone: Comment on above: Pattern: Regular 02-18-2019 12:05-0400 Pulse Oximetry 98 % Cecy Alarcon [facility] Work Phone: Comment on above: Room air 02-18-2019 12:05-0400 Respiratory Rate 18 /min Mignon Burgos RN Comprehensiv e Internal Medicine Work Phone: Comment on above: Pattern: Unlabored 02-18-2019 12:05-0400 SaO2% (BldA) [Mass fraction] 98 % Mignon Burgos RN [facility]; [facility] Work Phone: Comment on above: Room air 03-27-2017 09:50-0400 BMI (Body Mass Index) 25.64 kg/m2 Jana Ross CMA [facility] Work Phone: 03-27-2017 09:50-0400 BP Diastolic 71 mm[Hg] Jana Ross CMA [facility] Work Phone: 03-27-2017 09:50-0400 BP Systolic 110 mm[Hg] Jana Ross CMA [facility] Work Phone: 03-27-2017 09:50-0400 Pulse (Heart Rate) 70 /min Jana Ross C[facility] Work Phone: 03-27-2017 09:50-0400 Weight 63.59 kg Jana Ross CMA [facility] Work Phone: 12-28-2016 11:05-0400 Body Temperature 98.4 [degF] Jana Ross C[facility] Work Phone: 12-28-2016 11:05-0400 Height 157.48 cm Jana Ross CMA [facility] Work Phone: 12-28-2016 11:05-0400 Respiratory Rate 16 /min Jana Ross C[facility] Work Phone: 04-01-2015 09:23-0400 BMI (Body Mass Index) 25.51 kg/m2 Zeynep Slarb DIRECTOR OF MATERNITY SERVICES [facility] Work Phone: 04-01-2015 09:23-0400 Body Temperature 97.1 [degF] Zeynep Reesrb DIRECTOR OF MATERNITY SERVICES [facility] Work Phone: 04-01-2015 09:23-0400 Body weight 63.28 kg Zeynep Waters LPN [facility] Work Phone: 04-01-2015 09:23-0400 BP Diastolic 72 mm[Hg] Zeynep Negritarb DIRECTOR OF MATERNITY SERVICES [facility] Work Phone: Comment on above: Patient Position: Sitting; Cuff Location : Left Arm; Cuff Size: Standard 04-01-2015 09:23-0400 BP Systolic 102 mm[Hg] Zeynep Negritarb DIRECTOR OF MATERNITY SERVICES [facility] Work Phone: Comment on above: Patient Position: Sitting; Cuff Location : Left Arm; Cuff Size: Standard 04-01-2015 09:23-0400 BSA (Body Surface Area) 1.64 m2 Zeynep Negritarb DIRECTOR OF MATERNITY SERVICES [facility] Work Phone: 04-01-2015 09:23-0400 Height 157.48 cm Zeynep Evelin DIRECTOR OF MATERNITY SERVICES [facility] Work Phone: 04-01-2015 09:23-0400 Pulse (Heart Rate) 62 /min Zeynep Waters LPN [facility] Work Phone: Comment on above: Pattern: Regular 04-01-2015 09:23-0400 Pulse Oximetry 98 % Cecy Alarcon [facility] Work Phone: Comment on above: Room air 04-01-2015 09:23-0400 Respiratory Rate 16 /min Zeynep Waters DIRECTOR OF MATERNITY SERVICES [facility] Work Phone: Comment on above: Pattern: Unlabored 04-01-2015 09:23-0400 SaO2% (BldA) [Mass fraction] 98 % Zeynep Negritarb DIRECTOR OF MATERNITY SERVICES [facility]; [facility] Work Phone: Comment on above: Room air 04-01-2015 09:23-0400 Weight 63.28 kg Cecy Alarcon [facility] Work Phone: 03-30-2015 09:29-0400 Body Temperature 97.2 [degF] Zeynep Slarb DIRECTOR OF MATERNITY SERVICES [facility] Work Phone: 03-30-2015 09:29-0400 BP Diastolic 68 mm[Hg] Zeynep Slarb DIRECTOR OF MATERNITY SERVICES [facility] Work Phone: Comment on above: Patient Position: Sitting; Cuff Location : Left Arm; Cuff Size: Standard 03-30-2015 09:29-0400 BP Systolic 114 mm[Hg] Zeynep Slarb DIRECTOR OF MATERNITY SERVICES [facility] Work Phone: Comment on above: Patient Position: Sitting; Cuff Location : Left Arm; Cuff Size: Standard 03-30-2015 09:29-0400 Pulse (Heart Rate) 80 /min Zeynep Slarb DIRECTOR OF MATERNITY SERVICES [facility] Work Phone: Comment on above: Pattern: Regular 03-30-2015 09:29-0400 Pulse Oximetry 98 % Cecy Alarcon [facility] Work Phone: Comment on above: Room air 03-30-2015 09:29-0400 Respiratory Rate 17 /min Zeynep Slarb DIRECTOR OF MATERNITY SERVICES [facility] Work Phone: Comment on above: Pattern: Unlabored 03-30-2015 09:29-0400 SaO2% (BldA) [Mass fraction] 98 % Zeynep Slarb DIRECTOR OF MATERNITY SERVICES [facility]; [facility] Work Phone: Comment on above: Room air 03-24-2015 14:16-0400 BMI (Body Mass Index) 25.26 kg/m2 Zeynep Slarb DIRECTOR OF MATERNITY SERVICES [facility] Work Phone: 03-24-2015 14:16-0400 Body Temperature 98 [degF] Zeynep Slarb DIRECTOR OF MATERNITY SERVICES [facility] Work Phone: 03-24-2015 14:16-0400 Body weight 62.65 kg Zeynep Slarb DIRECTOR OF MATERNITY SERVICES [facility] Work Phone: 03-24-2015 14:16-0400 BP Diastolic 68 mm[Hg] Zeynep Slarb DIRECTOR OF MATERNITY SERVICES [facility] Work Phone: Comment on above: Patient Position: Sitting; Cuff Location : Left Arm; Cuff Size: Standard 03-24-2015 14:16-0400 BP Systolic 112 mm[Hg] Zeynep Waters LPN [facility] Work Phone: Comment on above: Patient Position: Sitting; Cuff Location : Left Arm; Cuff Size: Standard 03-24-2015 14:16-0400 BSA (Body Surface Area) 1.63 m2 Zeynep Waters LPN [facility] Work Phone: 03-24-2015 14:16-0400 Height 157.48 cm Zeynep Waters LPN [facility] Work Phone: 03-24-2015 14:16-0400 Pulse (Heart Rate) 74 /min Zeynep Waters LPN [facility] Work Phone: Comment on above: Pattern: Regular 03-24-2015 14:16-0400 Pulse Oximetry 98 % Cecy Alarcon [facility] Work Phone: Comment on above: Room air 03-24-2015 14:16-0400 Respiratory Rate 16 /min Zeynep Waters LPN [facility] Work Phone: Comment on above: Pattern: Unlabored 03-24-2015 14:16-0400 SaO2% (BldA) [Mass fraction] 98 % Zeynep Waters LPN [facility]; [facility] Work Phone: Comment on above: Room air 03-24-2015 14:16-0400 Weight 62.65 kg Cecy Alarcon [facility] Work Phone: 04-28-2014 11:54-0400 BMI (Body Mass Index) 25.08 kg/m2 Cecy Alarcon [facility] Work Phone: 04-28-2014 11:54-0400 Body Temperature 98.8 [degF] Cecy Alarcon [facility] Work Phone: Comment on above: Method: Oral 04-28-2014 11:54-0400 Body weight 62.2 kg Cecy Alarcon [facility] Work Phone: 04-28-2014 11:54-0400 BP Diastolic 74 mm[Hg] Cecy Alarcon [facility] Work Phone: Comment on above: Patient Position: Sitting; Cuff Location : Left Arm; Cuff Size: Standard 04-28-2014 11:54-0400 BP Systolic 142 mm[Hg] Cecy Alarcon [facility] Work Phone: Comment on above: Patient Position: Sitting; Cuff Location : Left Arm; Cuff Size: Standard 04-28-2014 11:54-0400 BSA (Body Surface Area) 1.63 m2 Cecy Alarcon [facility] Work Phone: 04-28-2014 11:54-0400 Height 157.48 cm Cecy Alarcon [facility] Work Phone: 04-28-2014 11:54-0400 Pulse (Heart Rate) 66 /min Cecy Alarcon [facility] Work Phone: Comment on above: Pattern: Regular 04-28-2014 11:54-0400 Pulse Oximetry 97 % Cecy Alarcon [facility] Work Phone: Comment on above: Room air 04-28-2014 11:54-0400 SaO2% (BldA) [Mass fraction] 97 % Cecy Alarcon DO Work Phone: [facility]; [facility] Work Phone: Comment on above: Room air 04-28-2014 11:54-0400 Weight 62.2 kg Cecy Alarcon [facility] Work Phone: 07-03-2013 10:51-0500 BMI (Body Mass Index) 25.08 kg/m2 Mignon Burgos RN [facility] Work Phone: 07-03-2013 10:51-0500 Body weight 62.2 kg Mignon Burgos RN [facility] Work Phone: 07-03-2013 10:51-0500 BP Diastolic 68 mm[Hg] Mignon Burgos RN [facility] Work Phone: Comment on above: Patient Position: Sitting; Cuff Location : Left Arm; Cuff Size: Large 07-03-2013 10:51-0500 BP Systolic 118 mm[Hg] Mignon Burgos RN [facility] Work Phone: Comment on above: Patient Position: Sitting; Cuff Location : Left Arm; Cuff Size: Large 07-03-2013 10:51-0500 BSA (Body Surface Area) 1.63 m2 Mignon Burgos RN [facility] Work Phone: 07-03-2013 10:51-0500 Height 157.48 cm Mignon Burgos RN [facility] Work Phone: 07-03-2013 10:51-0500 Pulse (Heart Rate) 62 /min Mignon Burgos RN [facility] Work Phone: Comment on above: Pattern: Regular 07-03-2013 10:51-0500 Pulse Oximetry 99 % Cecy Alarcon [facility] Work Phone: Comment on above: Room air 07-03-2013 10:51-0500 Respiratory Rate 18 /min Mignon Burgos RN [facility] Work Phone: Comment on above: Pattern: Unlabored 07-03-2013 10:51-0500 SaO2% (BldA) [Mass fraction] 99 % Mignon Burgos RN [facility]; [facility] Work Phone: Comment on above: Room air 07-03-2013 10:51-0500 Weight 62.2 kg Cecy Alarcon [facility] Work Phone: 04-02-2013 11:26-0400 BMI (Body Mass Index) 24.59 kg/m2 Mignon Burgos RN [facility] Work Phone: 04-02-2013 11:26-0400 Body weight 60.98 kg Mignon Burgos RN [facility] Work Phone: 04-02-2013 11:26-0400 BP Diastolic 88 mm[Hg] Mignon Burgos RN [facility] Work Phone: Comment on above: Patient Position: Sitting; Cuff Location : Left Arm; Cuff Size: Large 04-02-2013 11:26-0400 BP Systolic 132 mm[Hg] Mignon Burgos RN [facility] Work Phone: Comment on above: Patient Position: Sitting; Cuff Location : Left Arm; Cuff Size: Large 04-02-2013 11:26-0400 BSA (Body Surface Area) 1.61 m2 Mignon Burgos RN [facility] Work Phone: 04-02-2013 11:26-0400 Height 157.48 cm Mignon Burgos RN [facility] Work Phone: 04-02-2013 11:26-0400 Pulse (Heart Rate) 60 /min Mignon Burgos RN [facility] Work Phone: Comment on above: Pattern: Regular 04-02-2013 11:26-0400 Respiratory Rate 20 /min Mignon Burgos RN [facility] Work Phone: Comment on above: Pattern: Unlabored 04-02-2013 11:26-0400 Weight 60.98 kg Cecy Alarcon [facility] Work Phone: Encounters Encounter Date Encounter Type Care Provider Facility Start: 02-25-2025 ambulatory [facility] Fa cility:[facility] Start: 02-12-2025 End: 02-12-[address] Savage Sanchez DO -[facility] Work Phone: Start: 02-12-2025 End: 02-12-2025 ambulatory Anila Mas STROKE COORDINATOR-C Work Phone: -[facility] Start: 02-04-2025 ambulatory [facility] Fa cility:[facility] Start: 02-04-2025 Non-patient / Non-visit Dr. Quang Martines MD -[facility] Start: 02-04-2025 End: 02-04-2025 ambulatory Anila Mas STROKE COORDINATOR-C Work Phone: -Pulmonary Services/Neurology Start: 02-04-2025 End: 02-04-[address] Savage Sanchez DO -Pulmonary Services/Neurology Work Phone: Start: 02-04-2025 End: 02-04-2025 ambulatory [facility] Facility:[facility] Start: 01-15-2025 End: 01-15-[address] Savage Sanchez DO -[facility] Work Phone: Start: 01-15-2025 End: 01-15-2025 ambulatory Anilabrittani Mas STROKE COORDINATOR-C Work Phone: -[facility] Start: 12-10-2024 End: 12-10-[address] Remberto Lubin MD -[facility] Work Phone: Start: 12-10-2024 End: 12-10-2024 ambulatory Anila Mas STROKE COORDINATOR-C Work Phone: [facility] Work Phone: Start: 10-16-2024 End: 10-16-2024 Patient encounter procedure [facility] Anila Mas STROKE COORDINATOR-C -Laboratory [facility] Start: 10-16-2024 End: 10-16-2024 ambulatory Anila Mas VSC Facility:[facility] Start: 07-23-2024 End: 07-23-2024 ambulatory Anila Mas VSC Facility:[facility] Start: 06-26-2024 End: 06-26-2024 ambulatory Anila Mas VS Facility:[facility] Start: 05-21-2024 End: 05-21-2024 ambulatory Anila Msa [facility] Facility:[facility] Start: 04-23-2024 End: 04-23-2024 ambulatory Anila Chace VS Facility:[facility] Start: 04-15-2024 End: 04-15-2024 ambulatory Anila Mas [facility] Facility:[facility] Start: 02-26-2024 End: 02-26-2024 ambulatory Anila Mas [facility] Facility:[facility] Start: 12-05-2023 End: 12-05-2023 ambulatory AMY DIAZBLAYNE Facility:[facility] Start: 12-05-2023 End: 12-05-2023 Patient encounter procedure Amy Noble Work Phone: Podiatry Comment on above: Repetitive stress in jury (Primary Dx) Start: 12-05-2023 End: 12-05-2023 Subsequent hospital visit by physician Xr [facility] Work Phone: Radiology Comment on above: Pain in right foot [ M79.671] Start: 11-07-2023 End: 11-07-[address] Cecy Alarcon Work Phone: [facility] Work Phone: Start: 11-07-2023 End: 11-07-[address] Cecy Alarcon Work Phone: [facility]-Radiology, [facility] Work Phone: Start: 08-15-2023 End: 08-15-[address] Cecy Alarcon Work Phone: [facility] Work Phone: Start: 11-21-2022 End: 11-21-[address] Cecy Alarcon Work Phone: [facility] Work Phone: Start: 11-21-2022 End: 11-21-[address] Cecy Alarcon Work Phone: [facility]-Laboratory, [place] Start: 11-01-2022 End: 11-01-[address] Cecy Alarcon Work Phone: [facility] Start: 12-21-2021 Non-patient / Non-visit Dr. Cecy Alarcon Work Phone: [facility] Start: 12-21-2021 End: 12-21-2021 Admission to same day surgery center Dr. Cecy Alarcon Work Phone: [facility]-Endoscopy Start: 11-30-2021 End: 11-30-[address] Cecy Alarcon Work Phone: [facility] Start: 11-02-2021 Non-patient / Non-visit Dr. Cecy Alarcon Work Phone: [facility] Start: 05-12-2020 End: 05-12-2020 Annotation/Addendum Cecy Acostaon [facility] Start: 11-22-2019 End: 11-22-2019 Office outpatient visit 10 minutes Cecy Jarrell [facility] Start: 11-21-2019 End: 11-21-2019 Office outpatient visit 25 minutes Cecy Jarrell [facility] Start: 02-20-2019 End: 02-20-2019 Phone Encounter Cecy Alarcon [facility] Start: 02-18-2019 End: 02-18-2019 Office outpatient visit 25 minutes Cecyrocio Acostaon [facility] Start: 11-22-2018 End: 11-22-2018 Annotation/Addendum Cecy Acostaon [facility] Start: 04-03-2017 End: 04-03-2017 Phone Encounter Cecyrocoi Acostaon [facility] Start: 04-01-2015 End: 04-01-2015 Office outpatient visit 15 minutes Cecy Jarrell [facility] Start: 03-31-2015 End: 03-31-2015 Patient encounter procedure Cecyrocio Acostaon [facility] Start: 03-30-2015 End: 03-30-2015 Office outpatient visit 25 minutes Cecy Jarrell [facility] Start: 03-24-2015 End: 03-24-2015 Office outpatient visit 25 minutes Cecyrocio Acostaon [facility] Start: 04-28-2014 End: 04-28-2014 Office outpatient visit 15 minutes Cecyrocio Acostaon [facility] Start: 07-25-2013 End: 07-25-2013 Phone Encounter Cecy Alarcon [facility] Start: 07-03-2013 End: 07-03-2013 Patient encounter procedure Cecyrocio Acostaon [facility] Start: 04-02-2013 End: 04-02-2013 Patient encounter procedure Cecy Jarrell [facility] Procedures Date Procedure Procedure Detail Performing Clinician Start: 10-16-2024 Vitamin D, 25-hydrox y measurement Anila WEBSTER Work Phone: Comment on above: Vitamin D StatusDefi ciency: <20 ng/mL (50nmol/L)Insufficiency: 20-30 ng/mL (50-75 nmol/L)Sufficiency: 30-100 ng/mL (75-250 nmol/L)Toxicity: >100 ng/mL (>250 nmol/L) Start: 11-07-2023 X-ray of both feet Dr. Cecy Alarcon Work Phone: Start: 02-20-2023 End: 02-28-2023 Endocrinology Visit Report Procedure Note: See Note; NOTES: [facility] [address] [place] [address] OFFICE VISIT Date of Service: 02/20/23 MR#: [id number] Acct: [id number] Name: CIRILO CEBALLOS Rep #: [id number] : 1965 Provider: Teressa Duron Age/Sex: 58/F Location: [facility] Status: Signed Intake Vital Signs 05/17/22 13:54 11/01/22 13:08 02/20/23 13:28 Height 5 ft 2 in 5 ft 2 in 5 ft 2 in Weight: 154 lb 157 lb 6 oz 153 lb 4 oz BMI 28.1 28.8 28.0 BP 130/67 H 113/71 122/62 H Blood Pressure Location Lt brachial Rt brachial Lt brachial Position Sitting Sitting Sitting Respiration 16 16 16 Pulse 87 87 102 H Pulse Source Monitor Monitor Monitor Temp 97.4 F L 98.6 F 98.4 F Temp Source Temporal Temporal Temporal Pulse Oximetry (%) 95 96 99 Oxygen Delivery Method room air room air room air Intake Visit Reasons: 4 M FU Chief Complaint: Diabetes 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: No Accompanied by: Self Is patient in pain?: No Allergies No Known Allergies Allergy (Verified 02/20/23 13:36) Nurse's Note: Room 4 [facility] Medical History (Updated 02/28/23 @ 07:[address] Remberto Lubin MD) Arthritis Diabetes mellitus type 1 Diabetes type 1, controlled Dietary restriction Easy bruising HTN (hypertension) Hypercalcemia Hyperlipidemia Hypothyroidism Insulin pump titration Knee pain Non-smoker Paresthesia PONV (postoperative nausea and vomiting) Postmenopausal Presence of insulin pump Thyroid nodule Wears glasses Surgical History H/O colonoscopy History of arthroscopic knee surgery History of History of carpal tunnel release of both wrists History of lumpectomy of right breast Family History Mother Diabetes Bleeding disorder High cholesterol Cancer Heart disease Hypertension Melanoma Father Alcoholism Sister Colon cancer Diabetes Brother Diabetes Social History Smoking Status: Never smoker second hand exposure: No alcohol intake: current substance use type: does not use HPI HPI Chief Complaint: Diabetes Details: CIRILO CEBALLOS, is a 58 F who presents to the office today for follow up. A1C is 7.1% This is the best she had done. She is wearing Omnipod insulin pump and Dexcom G6 CGM. She is very pleased. Upload shows some highs post meal. She is feeling well. Exam Const General: cooperative, healthy appearing, comfortable, no acute distress, well developed and not cushingoid Nutritional Appearance: well nourished Orientation: alert, awake and oriented x3 HENMT Head: normal to inspection Ears: hearing grossly normal bilaterally Nose: external nose normal Mouth: oral mucosae normal Eyes General: appearance normal, both eyes and all related structures Alignment and Position: alignment normal Periorbital: periorbital findings normal Eyelids: eyelids normal Conjunctivae: conjunctivae normal Neck Neck: normal visual inspection Neck mass: No Thyroid: thyroid normal Carotids: no bruits Lymphatic: no lymphadenopathy noted Chest Chest palpation inspection: normal inspection of the chest Resp Effort Inspection: normal respiratory effort, able to speak in complete sentences, symmetric chest movement, no audible wheezes and no cough Auscultation: Bilateral: Clear to Auscultation Cardio Rate: regular rate Rhythm: regular rhythm GI Inspection: normal to inspection Skin General: no rashes or lesions noted Neuro General: patient alert, patient awake and patient oriented x3 Cranial Nerves: CN's II-XI intact bilaterally Cognition: normal cognition Speech: speech normal Gait: normal gait Motor: muscle tone normal throughout Extrem General: no edema Psych Appearance: grossly normal Mental Status: mental status grossly normal Mood: congruent mood Affect: normal affect Speech and Movement: speech and movement normal Attitude: cooperative Thought Process: normal Thought Content: normal Judgment: judgment good Results POC A1C POC A1C 7.1 % Last Edit by Cande Zaldivar LPN on 02/20/23 13:41 Discussed at visit. Coding Level of Care Code Off vis,est,level 4 Diagnoses Type 1 diabetes mellitus with hyperglycemia E10.65 Diabetes mellitus complication status: with hyperglycemia Hypothyroidism (acquired) E03.9 Primary hypertension I10 Hypertension type: primary hypertension Mixed hyperlipidemia E78.2 Presence of insulin pump Z96.41 Insulin pump titration Z46.81 Assessment and Plan Assessment and Plan (1) Diabetes mellitus type 1: Status: Chronic Qualifiers: Diabetes mellitus complication status: with hyperglycemia Qualified Code(s): E10.65 - Type 1 diabetes mellitus with hyperglycemia Plan: Improved control. Diabetes education provided. (2) Hypothyroidism (acquired): Status: Chronic Plan: Take levothyroxine on an empty stomach with water at least four hours after eating. Then wait 30-60 minutes before consuming any other food or beverage, especially coffee. Separate levothyroxine from vitamins by at least 4 hours. Stop taking any biotin supplement 4 days prior to having labs drawn. TSH is 2.86 (3) HTN (hypertension): Status: Chronic Qualifiers: Hypertension type: primary hypertension Qualified Code(s): I10 - Essential (primary) hypertension Plan: Controlled, please continue current medications. (4) Mixed hyperlipidemia: Status: Chronic Plan: Continue statin. (5) Presence of insulin pump: Status: Chronic Plan: Insulin pump management was performed. Insulin pump settings were reviewed with the patient. Settings were adjusted to improve control and to avoid hypoglycemia. (6) Insulin pump titration: Status: Chronic Plan: Basal settings adjusted. Carb ratio adjusted. I have spent [34] minutes today reviewing labs, records and history. Time includes coordinating care, interpretation of tests, discussion with patient's other health care providers via telephone. This also includes time I spent with the patient for exam, treatment plan and education as well as documenting clinical information. Orders: Orders POC A1C 02/20/23 E10.9 - Type 1 diabetes mellitus without complications Comprehensive Metabolic Profil 02/20/23 E03.9 - Hypothyroidism, unspecified, E10.9 - Type 1 diabetes mellitus without complications, E78.2 - Mixed hyperlipidemia, E83.52 - Hypercalcemia, I10 - Essential (primary) hypertension Vitamin D,25 Hydroxy 02/20/23 E03.9 - Hypothyroidism, unspecified, E10.9 - Type 1 diabetes mellitus without complications, E55.9 - Vitamin D deficiency, unspecified, E78.2 - Mixed hyperlipidemia, E83.52 - Hypercalcemia, I10 - Essential (primary) hypertension PTHIN 02/20/23 E03.9 - Hypothyroidism, unspecified, E10.9 - Type 1 diabetes mellitus without complications, E78.2 - Mixed hyperlipidemia, E83.52 - Hypercalcemia, I10 - Essential (primary) hypertension T4 Free Direct 02/20/23 E03.9 - Hypothyroidism, unspecified Thyroid Stim Hormone (TSH) 02/20/23 E03.9 - Hypothyroidism, unspecified Medications: Refilled blood-glucose sensor (Dexcom G6 Sensor device) As directed 3 ea 6RF blood-glucose transmitter (Dexcom G6 Transmitter device) As directed 1 ea 1RF 02/28/23 0754 <Electronically signed by Remberto Lubin MD> Date Remberto Lubin MD Cosigner Signature: Date (if applicable) CC: Dr. Cecy Alarcon, DO Cecy Alarcon DO Work Phone: Start: 11-01-2022 End: 11-01-2022 Endocrinology Visit Report Procedure Note: See Note; NOTES: [facility] [address] [place] [address]. [address] [place] [address] OFFICE VISIT Date of Service: 11/01/22 MR#: [id number] Acct: [id number] Name: CIRILO CEBALLOS TERRIE Rep #: [id number] : 1965 Provider: Teressa Duron Age/Sex: 57/F Location: [facility] Status: Signed Intake Vital Signs 12/21/21 07:25 11/01/22 13:08 Height 5 ft 2 in 5 ft 2 in Weight: 157 lb 6 oz BMI 28.8 BP 113/71 Blood Pressure Location Rt brachial Position Sitting Respiration 16 Pulse 87 Pulse Source Monitor Temp 98.6 F Temp Source Temporal Pulse Oximetry (%) 96 Oxygen Delivery Method room air Intake Visit Reasons: 4 M FU Chief Complaint: Diabetes 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: No Is patient in pain?: No Allergies No Known Allergies Allergy (Verified 11/01/22 13:09) Medications loratadine 10 mg tablet 10 mg PO DAILY allergies 12/20/19 [History Confirmed 11/01/22] cholecalciferol (vitamin D3) 25 mcg (1,000 unit) capsule 25 mcg PO DAILY 09/04/20 [History Confirmed 11/01/22] flash glucose sensor #1 ea 02/08/21 [History Confirmed 11/01/22] lisinopril 20 mg tablet 20 mg PO QDAY kidneys #90 tabs 01/31/22 [Rx Confirmed 11/01/22] cbd gummy PO 05/17/22 [History Confirmed 11/01/22] insulin NPH isoph U-100 human 100 unit/mL (3 mL) subcutaneous pen (Novolin N FlexPen) See Rx Instructions subcut . 05/17/22 [History Confirmed 11/01/22] pensaid topical 05/17/22 [History Confirmed 11/01/22] levothyroxine 75 mcg tablet 75 mcg PO DAILY thyroid #90 tabs 06/12/22 [Rx Confirmed 11/01/22] Novolog FlexPen U-100 Insulin 100 unit/mL (3 mL) subcutaneous (insulin aspart U-100) See Rx Instructions subcut TID #15 mL 06/27/22 [Rx Confirmed 11/01/22] blood-glucose sensor (Dexcom G6 Sensor device) #3 ea 07/06/22 [Rx Confirmed 11/01/22] blood-glucose transmitter (Dexcom G6 Transmitter device) #1 ea 07/06/22 [Rx Confirmed 11/01/22] blood-glucose meter,continuous (Dexcom G6 Lead Consultant) #1 ea 07/13/22 [Rx Confirmed 11/01/22] atorvastatin 20 mg tablet 20 mg PO QDAY #90 tabs 11/01/22 [Rx Confirmed 11/01/22] desipramine 50 mg tablet 50 mg PO QHS #90 tabs 11/01/22 [Rx Confirmed 11/01/22] insulin pump cartridge,automated dose,BT with controller subcutaneous (Omnipod 5 G6 Intro Kit (Gen 5) subcutaneous cartridge with controller) #1 ea 11/01/22 [Rx Confirmed 11/01/22] [facility] Medical History Arthritis Diabetes mellitus type 1 Diabetes type 1, controlled Dietary restriction Easy bruising HTN (hypertension) Hyperlipidemia Hypothyroidism Knee pain Non-smoker Paresthesia PONV (postoperative nausea and vomiting) Postmenopausal Thyroid nodule Wears glasses Surgical History H/O colonoscopy History of arthroscopic knee surgery History of History of carpal tunnel release of both wrists History of lumpectomy of right breast Family History Mother Diabetes Bleeding disorder High cholesterol Cancer Heart disease Hypertension Melanoma Father Alcoholism Sister Colon cancer Diabetes Brother Diabetes Social History Smoking Status: Never smoker second hand exposure: No alcohol intake: current substance use type: does not use HPI HPI Chief Complaint: Diabetes Details: CIRILO CEBALLOS, is a 57 F who presents to the office today for follow up. A1C is 7.8% She is taking N bid and Novolog with meals. She is wearing Dexcom G6 She has terrible Moraima phenomenon, she really needs an insulin pump. She has hypothyroidism and is taking levothyroxine. She is on atorvastatin for hyperlipidemia She is on desipramine for neuropathy pain, she would like to try a higher dose. Exam Const General: cooperative, healthy appearing, comfortable, no acute distress, well developed and not cushingoid Nutritional Appearance: well nourished Orientation: alert, awake and oriented x3 HENMT Head: normal to inspection Ears: hearing grossly normal bilaterally Nose: external nose normal Mouth: oral mucosae normal Eyes General: appearance normal, both eyes and all related structures Alignment and Position: alignment normal Periorbital: periorbital findings normal Eyelids: eyelids normal Conjunctivae: conjunctivae normal Neck Neck: normal visual inspection Neck mass: No Thyroid: diffusely enlarged Lymphatic: no lymphadenopathy noted Chest Chest palpation inspection: normal inspection of the chest Resp Effort Inspection: normal respiratory effort, able to speak in complete sentences, symmetric chest movement, no audible wheezes and no cough Auscultation: Bilateral: Clear to Auscultation Cardio Rate: regular rate Rhythm: regular rhythm GI Inspection: normal to inspection Skin General: no rashes or lesions noted Neuro General: patient alert, patient awake and patient oriented x3 Cranial Nerves: CN's II-XI intact bilaterally Cognition: normal cognition Speech: speech normal Gait: normal gait Motor: muscle tone normal throughout Extrem General: no edema Psych Appearance: grossly normal Mental Status: mental status grossly normal Mood: congruent mood Affect: normal affect Speech and Movement: speech and movement normal Attitude: cooperative Thought Process: normal Thought Content: normal Judgment: judgment good Results POC A1C POC A1C 7.8 % Last Edit by Oswaldo Dumont on 11/01/22 13:16 Coding Level of Care Code Off vis,est,level 4 Diagnoses Diabetes mellitus type 1 E10.9 Hypothyroidism (acquired) E03.9 HTN (hypertension) I10 Hypertension type: primary hypertension Overweight (BMI 25.0-29.9) E66.3 Mixed hyperlipidemia E78.2 Assessment and Plan Assessment and Plan (1) Diabetes mellitus type 1: Status: Acute Plan: Diabetes education provided. Insulin pattern management performed. Change N to 6 am and 20 HS Novolog 13 tid with meals 180 +1; 211 +3; 241 +5; 271 +7 Will order insulin pump (2) Hypothyroidism (acquired): Status: Chronic Plan: Take levothyroxine on an empty stomach with water at least four hours after eating. Then wait 30-60 minutes before consuming any other food or beverage, especially coffee. Separate levothyroxine from vitamins by at least 4 hours. Stop taking any biotin supplement 4 days prior to having labs drawn. Labs ordered. (3) HTN (hypertension): Status: Chronic Qualifiers: Hypertension type: primary hypertension Qualified Code(s): I10 - Essential (primary) hypertension Plan: Controlled, please continue current medications. Labs ordered. (4) Overweight (BMI 25.0-29.9): Status: Chronic Plan: Near normal weight. Nutritional counseling provided, avoid flour, sugar, and artificial sweeteners. (5) Mixed hyperlipidemia: Status: Chronic Plan: Continue statin. Check lipid panel and LFT's I have spent [33] minutes today reviewing labs, records and history. Time includes coordinating care, interpretation of tests, discussion with patient's other health care providers via telephone. This also includes time I spent with the patient for exam, treatment plan and education as well as documenting clinical information. Orders: Orders POC A1C Today E11.9 - Type 2 diabetes mellitus without complications Vitamin D,25 Hydroxy Today E03.9 - Hypothyroidism, unspecified, E10.9 - Type 1 diabetes mellitus without complications, E55.9 - Vitamin D deficiency, unspecified, E78.2 - Mixed hyperlipidemia, I10 - Essential (primary) hypertension Comprehensive Metabolic Profil Today E03.9 - Hypothyroidism, unspecified, E10.9 - Type 1 diabetes mellitus without complications, E78.2 - Mixed hyperlipidemia, I10 - Essential (primary) hypertension Lipid Profile Today E03.9 - Hypothyroidism, unspecified, E10.9 - Type 1 diabetes mellitus without complications, E78.2 - Mixed hyperlipidemia, I10 - Essential (primary) hypertension T4 Free Direct Today E03.9 - Hypothyroidism, unspecified, E10.9 - Type 1 diabetes mellitus without complications, E78.2 - Mixed hyperlipidemia, I10 - Essential (primary) hypertension Thyroid Stim Hormone (TSH) Today E03.9 - Hypothyroidism, unspecified, E10.9 - Type 1 diabetes mellitus without complications, E78.2 - Mixed hyperlipidemia, I10 - Essential (primary) hypertension Microalb:Creat Ratio,Random UR Today E03.9 - Hypothyroidism, unspecified, E10.9 - Type 1 diabetes mellitus without complications, E78.2 - Mixed hyperlipidemia, I10 - Essential (primary) hypertension Medications: New desipramine 50 mg PO QHS 90 tabs 1RF Refilled atorvastatin 20 mg PO QDAY 90 tabs 2RF E10.65 - Type 1 diabetes mellitus with hyperglycemia insulin pump cart,auto,BT-cntr (Omnipod 5 G6 Intro Kit (Gen 5) subcutaneous cartridge with controller) As directed 1 ea 0RF Discontinued flash glucose scanning reader (FreeStyle Antonieta 2 Orono) Discontinued Reason: Order Completed As directed 1 ea 0RF flash glucose sensor (FreeStyle Antonieta 2 Sensor kit) Discontinued Reason: Order Completed As directed 2 ea 7RF 11/01/22 5729 <Electronically signed by Remberto Lubin MD> Date Remberto Lubin MD Cosigner Signature: Date (if applicable) CC: Dr. Cecy Alarcon, DO Cecy Alarcon DO Work Phone: Start: 05-17-2022 End: 05-23-2022 Endocrinology Visit Report Procedure Note: See Note; NOTES: [facility] [address] [place] [address] OFFICE VISIT Date of Service: 05/17/22 MR#: [id number] Acct: [id number] Name: CIRILO CEBALLOS Rep #: [id number] : 1965 Provider: Teressa Duron Age/Sex: 57/F Location: [facility] Status: Signed Intake Vital Signs 11/30/21 13:52 12/21/21 07:25 05/17/22 13:54 Height 5 ft 2 in 5 ft 2 in 5 ft 2 in Weight: 154 lb BMI 28.1 BP 130/67 H Blood Pressure Location Lt brachial Position Sitting Respiration 16 Pulse 87 Pulse Source Monitor Temp 97.4 F L Temp Source Temporal Pulse Oximetry (%) 95 Oxygen Delivery Method room air Intake Visit Reasons: 4 M FU Chief Complaint: having lows, checks ac hs and prn 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: No Is patient in pain?: No Allergies No Known Allergies Allergy (Verified 05/17/22 13:57) Medications loratadine 10 mg tablet 10 mg PO DAILY allergies 12/20/19 [History Confirmed 05/17/22] cholecalciferol (vitamin D3) 25 mcg (1,000 unit) capsule 25 mcg PO DAILY 09/04/20 [History Confirmed 05/17/22] flash glucose scanning reader (FreeStyle Antonieta 2 Orono) #1 ea 02/08/21 [Rx Confirmed 05/17/22] flash glucose sensor #1 ea 02/08/21 [History Confirmed 05/17/22] levothyroxine 75 mcg tablet 75 mcg PO DAILY thyroid #90 tabs 09/14/21 [Rx Confirmed 05/17/22] atorvastatin 20 mg tablet 20 mg PO QDAY #90 tabs 01/31/22 [Rx Confirmed 05/17/22] flash glucose sensor (FreeStyle Antonieta 2 Sensor kit) #2 ea 01/31/22 [Rx Confirmed 05/17/22] lisinopril 20 mg tablet 20 mg PO QDAY kidneys #90 tabs 01/31/22 [Rx Confirmed 05/17/22] cbd gummy PO 05/17/22 [History Confirmed 05/17/22] desipramine 25 mg tablet 25 mg PO QHS #30 tabs 05/17/22 [Rx Confirmed 05/17/22] insulin NPH isoph U-100 human 100 unit/mL (3 mL) subcutaneous pen (Novolin N Flexpen) See Rx Instructions subcut . 05/17/22 [History Confirmed 05/17/22] insulin aspart U-100 100 unit/mL (3 mL) subcutaneous pen (Novolog Flexpen U-100 Insulin aspart) See Rx Instructions subcut TID 05/17/22 [History] pensaid topical 05/17/22 [History] blood-glucose sensor (Dexcom G6 Sensor device) #3 ea 05/19/22 [Rx] blood-glucose transmitter (Dexcom G6 Transmitter device) #1 ea 05/19/22 [Rx] insulin pump cartridge,automated dose,BT with controller subcutaneous (Omnipod 5 G6 Intro Kit (Gen 5) subcutaneous cartridge with controller) #1 ea 05/19/22 [Rx] Nurse's Note: rm 4 PFSH Medical History Arthritis Diabetes type 1, controlled Dietary restriction Easy bruising HTN (hypertension) Hyperlipidemia Hypothyroidism Knee pain Non-smoker Paresthesia PONV (postoperative nausea and vomiting) Postmenopausal Thyroid nodule Wears glasses Surgical History H/O colonoscopy History of arthroscopic knee surgery History of History of carpal tunnel release of both wrists History of lumpectomy of right breast Family History Mother Diabetes Bleeding disorder High cholesterol Cancer Heart disease Hypertension Melanoma Father Alcoholism Sister Colon cancer Diabetes Brother Diabetes Social History Smoking Status: Never smoker second hand exposure: No alcohol intake: current substance use type: does not use HPI HPI Chief Complaint: having lows, checks ac hs and prn Details: CIRILO CEBALLOS, is a 57 F who presents to the office today for for follow up. She is using N bid and Novolog at meals. 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 She is doing much better with her management, but despite this her control isn't perfect. A1C is 7.6% She is engaged in her care and is doing well. Exam Const General: cooperative, healthy appearing, comfortable, no acute distress, well developed and not cushingoid Nutritional Appearance: well nourished Orientation: alert, awake and oriented x3 HENWV Head: normal to inspection Ears: hearing grossly normal bilaterally Nose: external nose normal Mouth: oral mucosae normal Eyes General: appearance normal, both eyes and all related structures Alignment and Position: alignment normal Periorbital: periorbital findings normal Eyelids: eyelids normal Conjunctivae: conjunctivae normal Neck Neck: normal visual inspection Neck mass: No Thyroid: thyroid normal Carotids: no bruits Lymphatic: no lymphadenopathy noted Chest Chest palpation inspection: normal inspection of the chest Resp Effort Inspection: normal respiratory effort, able to speak in complete sentences, symmetric chest movement, no audible wheezes and no cough Auscultation: Bilateral: Clear to Auscultation Cardio Rate: regular rate Rhythm: regular rhythm Pulses: posterior tibial pulses present GI Inspection: normal to inspection Auscultation: normal bowel sounds Palpation: soft and no hepatosplenomegaly Skin General: no rashes or lesions noted Neuro General: patient alert, patient awake and patient oriented x3 Cranial Nerves: CN's II-XI intact bilaterally Cognition: normal cognition Speech: speech normal Gait: normal gait Motor: muscle tone normal throughout Extrem General: no edema Psych Appearance: grossly normal Mental Status: mental status grossly normal Mood: congruent mood Affect: normal affect Speech and Movement: speech and movement normal Attitude: cooperative Thought Process: normal Thought Content: normal Judgment: judgment good Results POC A1C POC A1C 7.6 % Last Edit by Oswaldo Dumont on 05/17/22 14:14 discussed at visit Coding Level of Care Code Off vis,est,level 4 Diagnoses Diabetes mellitus E10.65 Diabetes mellitus type: type 1 Diabetes mellitus complication status: with hyperglycemia Hypothyroidism (acquired) E03.9 Mixed hyperlipidemia E78.2 HTN (hypertension) I10 Hypertension type: primary hypertension Assessment and Plan Assessment and Plan (1) Diabetes mellitus: Status: Chronic Qualifiers: Diabetes mellitus type: type 1 Diabetes mellitus complication status: with hyperglycemia Qualified Code(s): E10.65 - Type 1 diabetes mellitus with hyperglycemia Plan: Diabetes education provided. I am recommending that she get an insulin pump in order to deal with her Moraima phenomenon. I attest that: 1. Cirilo will be properly trained on how to use the Dexcom CGM system. This will be done via web training as this is standard. If she has any difficulty with the training, I will show her myself. 2. The patient understands how to test her blood sugar with a glucometer. She will be trained on when to test using a glucometer. 3. The patient will be trained on which medications to avoid (acetaminophen) when using a CGM. (2) Hypothyroidism (acquired): Status: Chronic Plan: Take levothyroxine on an empty stomach with water at least four hours after eating. Then wait 30-60 minutes before consuming any other food or beverage, especially coffee. Separate levothyroxine from vitamins by at least 4 hours. Stop taking any biotin supplement 4 days prior to having labs drawn. TSH was 1.37 in November. (3) Mixed hyperlipidemia: Status: Chronic Plan: Continue statin (4) HTN (hypertension): Status: Chronic Qualifiers: Hypertension type: primary hypertension Qualified Code(s): I10 - Essential (primary) hypertension Comment: per pt, controlled on meds Plan: Controlled, please continue current medications. I have spent [34] minutes today reviewing labs, records and history. Time includes coordinating care, interpretation of tests, discussion with patient's other health care providers via telephone. This also includes time I spent with the patient for exam, treatment plan and education as well as documenting clinical information. Orders: Orders POC A1C 05/17/22 E11.9 - Type 2 diabetes mellitus without complications Medications: New desipramine 25 mg PO QHS 30 tabs 5RF 05/23/22 1253 <Electronically signed by Remberto Lubin MD> Date Remberto Lubin MD Cosigner Signature: Date (if applicable) CC: DO Cecy Patino DO Work Phone: Start: 01-06-2022 End: 01-06-2022 Knee 4 or More Views Procedure Note: See Note; NOTES: [facility] [address] [place] [address] Knee 4 or More Views MR#: [id number] Acct: [id number] Name: CIRILO CEBALLOS Rep #: [id number] : 1965 F 56 From: Sarabjit Kathleen PCP: Dr. Cecy Alarcon DO Status: DEP AMB Study: Knee 4 or More Views Date of Exam: 01/06/22 Exam# [id number] Ordering Dr: Amy Ling STUDY: XR Knee Complete 4 Views or More 01/06/2022 3:48 PM REASON FOR EXAM: Female, 56 years old. pain TECHNIQUE: XR Knee Complete 4 Views or More RIGHT COMPARISON: None FINDINGS: Normal visualized distal femur. Normal visualized proximal tibia and fibula. Normal proximal tibiofibular articulation. Normal medial femorotibial compartment. Normal lateral femorotibial compartment. Normal patellofemoral articulation. The soft tissue structures are unremarkable. RAD/Knee 4 or More Views IMPRESSION: There are no acute findings. Electronically Signed: Sarabjit Chacko MD at 15:49 EDT , CC: KEYON Ling; Dr. Cecy Alarcon DO Supervisor Die Casting: Signed Cecy Alarcon DO Work Phone: Start: 01-06-2022 End: 01-06-2022 Orthopedic Visit Report Procedure Note: See Note; NOTES: [facility] [facility] [address] [place] [address] OFFICE VISIT Date of Service: 01/06/22 MR#: [id number] Acct: [id number] Name: CIRILO CEBALLOS Rep #: [id number] : 1965 Provider: KEYON Ling Age/Sex: 56/F Location: [facility] [place] Status: Signed Intake Vital Signs 12/21/21 07:25 Height 5 ft 2 in Intake Visit Reasons: RIGHT KNEE Chief Complaint: Diabetes Allergies No Known Allergies Allergy (Verified 12/21/21 07:24) Medications loratadine 10 mg tablet 10 mg PO DAILY allergies 12/20/19 [History Confirmed 01/06/22] cholecalciferol (vitamin D3) 25 mcg (1,000 unit) capsule 25 mcg PO DAILY 09/04/20 [History Confirmed 01/06/22] flash glucose scanning reader (coin4ceStyle Antonieta 2 Orono) #1 ea 02/08/21 [Rx Confirmed 01/06/22] flash glucose sensor #1 ea 02/08/21 [History Confirmed 01/06/22] lisinopril 20 mg tablet 20 mg PO QDAY kidneys #90 tabs 03/18/21 [Rx Confirmed 01/06/22] flash glucose sensor (FreeStyle Antonieta 2 Sensor) #2 ea 07/11/21 [Rx Confirmed 01/06/22] insulin aspart U-100 100 unit/mL (3 mL) subcutaneous pen (Novolog Flexpen U-100 Insulin aspart) 20 unit (0.2 mL) subcut TID #15 mL 09/14/21 [Rx Confirmed 01/06/22] levothyroxine 75 mcg tablet 75 mcg PO DAILY thyroid #90 tabs 09/14/21 [Rx Confirmed 01/06/22] atorvastatin 20 mg tablet 20 mg PO QDAY #90 tabs 11/11/21 [Rx Confirmed 01/06/22] insulin NPH isoph U-100 human 100 unit/mL (3 mL) subcutaneous pen (Novolin N Flexpen) 20 unit subcut . 11/30/21 [History Confirmed 01/06/22] [facility] Medical History (Updated 12/21/21 @ 08:[address] Yuan Chavez MD) Arthritis Diabetes type 1, controlled Dietary restriction Easy bruising HTN (hypertension) Hyperlipidemia Hypothyroidism Knee pain Non-smoker Paresthesia PONV (postoperative nausea and vomiting) Postmenopausal Thyroid nodule Wears glasses Surgical History (Updated 12/16/21 @ 11:20 by Mechelle King) H/O colonoscopy History of arthroscopic knee surgery History of History of carpal tunnel release of both wrists History of lumpectomy of right breast Family History Mother Diabetes Bleeding disorder High cholesterol Cancer Heart disease Hypertension Melanoma Father Alcoholism Sister Colon cancer Diabetes Brother Diabetes Social History Smoking Status: Never smoker second hand exposure: No alcohol intake: current substance use type: does not use HPI RIGHT KNEE Details: Parts of this documentation were recorded by a scribe, this documentation accurately reflects the service provided and the decisions made by me, KEYON Stephens 01/06/22 0881. CIRILO CEBALLOS is a 56 year old F here today for right knee pain. SHe states that her right knee has been flared up. She has anterior lateral knee pain and pain below her patella. She states that she has been wearing a compression knee sleeve which is helpful but she feels this makes her lower leg swell. Denies any new injuries. She has tried taking Aleve/ibuprofen and Tylenol which is not helpful. She has CBD cream that is somewhat helpful. She had euflexxa injection in 03/2021 which she states was helpful for about 2-3 months. Ortho Exam Right Knee Skin/Wound: No erythema, No ecchymosis and No swelling Knee ROM: Yes ROM-Extension -20 to 0 and Yes ROM-Flexion 0-140 Examination: Yes Med jt line tenderness, Yes Lat jt line tenderness, No Crepitus, No Kely's Test, Yes TTP Patellar tendon, No TTP Tibial tubercle, No TTP Pes Anserine and No Illiotibial band tenderness Quad Atrophy: No Stability: NML: Anterior Drawer, NML: Posterior Drawer, NML: Valgus 0 and NML: Varus 0 Apprehension with Lateral Translation: No Patella Grind: Yes KNEE: No acute abnormalities on inspection of the right knee. Patient has no localized or generalized swelling and there is no evident effusions today. She does have forage motion stating that she feels a little tight with flexion in the front of her knee but again motion is good. ACL, PCL, collateral ligaments are intact no laxity. She does have reproducible joint line tenderness both medially and laterally. She also has a little bit of tenderness over the lateral portal site which is on the very lateral margin of the patellar tendon. Somewhat difficult to tell if this is actually on the tendon or the actual incision site. She has negative seated Kely's today. She is soft compartments of the lower extremity and no calf tenderness. Normal sensation light touch Coding Level of Care Code Off vis,est,level 3 Diagnoses Right knee pain M25.561 Osteoarthritis of right knee M17.11 Assessment and Plan Assessment and Plan (1) Right knee pain: Status: Acute (2) Osteoarthritis of right knee: Status: Acute Plan: Patient presents to the office today with some continued right knee pain. Patient states there was no injury or any acute incident that started her pain that just gradually started to come back again probably 2 to 3 months following her Euflexxa injections. She states that pain seem to be both the inside and outside part of the knee worse with certain weightbearing activities. She is no mechanical catching or locking and there is no instability of the knee. Physical exam today shows reproducible joint line tenderness both medially and laterally. No evident ligamentous involvement and no signs of any acute meniscal damage. Radiographs today show no major changes compared to previous radiographs taken a year ago. Previous arthroscopy did show some changes of both the medial lateral tibial plateau as well as the medial femoral condyle. I do feel that her signs and symptoms still are consistent with osteoarthritis of the knee. Today though there is no evidence of effusion at all and therefore I do not feel aspiration is indicated. Steroid injections cause a lot of abnormalities of her sugar and therefore she does not wish to do that. I do think she is a great candidate for [facility] therefore we are going to send a prescription into their pharmacy. If this is not, patient can call the office and we will find an alternative such as a Voltaren gel. She can ice as needed and take some Tylenol. This note was generated with IP Ghoster dictation software. It may contain incorrect words, spelling, and punctuation that were not noted in checking the note before signing. Orders: Orders Knee 4 or More Views Today M17.11 - Unilateral primary osteoarthritis, right knee 01/06/22 1309 <Electronically signed by Amy TA> Date Amy TA Cosigner Signature: Date (if applicable) CC: Cecy Alarcon DO Work Phone: Start: 12-21-2021 End: 12-21-2021 Colonoscopy Report Procedure Note: See Note; NOTES: [facility] Medical Records Department [address] [place] [id number] Colonoscopy Report MR#: [id number] Acct: [id number] Name: CIRILO CEBALLOS TERRIE Rep #: [id number] : 1965 56 From: Yuan Chavez MD PCP: Dr. Cecy Alarcon, DO Status:[facility] Patient Name: Cirilo Ceballos Procedure Date: 12/21/2021 8:05 AM Date of : 1965 Age: 56 Procedure: Colonoscopy Indications: High risk colon cancer surveillance: Personal history of adenoma (10 mm or greater in size) Providers: Yuan Chavez MD Medicines: Monitored Anesthesia Care Patient Profile: This is a 56 year old female. Refer to note in patient chart for documentation of history and physical. Last Colonoscopy: 3 years ago. Complications: No immediate complications. Procedure: Pre-Anesthesia Assessment: - Prior to the procedure, a History and Physical was performed, and patient medications and allergies were reviewed. The patient's tolerance of previous anesthesia was also reviewed. The risks and benefits of the procedure and the sedation options and risks were discussed with the patient. All questions were answered, and informed consent was obtained. Prior Anticoagulants: The patient has taken no previous anticoagulant or antiplatelet agents. After reviewing the risks and benefits, the patient was deemed in satisfactory condition to undergo the procedure. After I obtained informed consent, the scope was passed under direct vision. Throughout the procedure, the patient's blood pressure, pulse, and oxygen saturations were monitored continuously. The pediatric colonoscope was introduced through the anus and advanced to the cecum, identified by appendiceal orifice and ileocecal valve. The colonoscopy was performed without difficulty. The patient tolerated the procedure well. The quality of the bowel preparation was good. Scope In: 8:17:20 AM Scope Withdrawal Time 0 hours 6 minutes 11 seconds Scope Out: 8:29:13 AM Total Procedure Duration Time 0 hours 11 minutes 53 seconds Findings: The entire examined colon appeared normal on direct and retroflexion views. Impression: - The entire examined colon is normal on direct and retroflexion views. - No specimens collected. Recommendation: - Discharge patient to home. - Resume previous diet. - Continue present medications. - Repeat colonoscopy in 5 years for surveillance. Procedure Code(s): --- Professional --- 68007, Colonoscopy, flexible; diagnostic, including collection of specimen(s) by brushing or washing, when performed (separate procedure) Diagnosis Code(s): --- Professional --- Z86.010, Personal history of colonic polyps CPT copyright 2017 [employer]. All rights reserved. The codes documented in this report are preliminary and upon braille coder review may be revised to meet current compliance requirements. Yuan Chavez MD 12/21/2021 8:34:14 AM This report has been signed electronically. Number of Addenda: 0 Note Initiated On: 12/21/2021 8:05 AM 12/21/2134 Date Yuan Chavez MD Cosigner Signature: Date (if indicated) CC: Dr. Yuan Chavez MD; Dr. Cecy Alarcon DO Date Dictated: 12/21/21804 Date Transcribed: Supervisor [employer] Casting: KHLOE Signed Cecy Alarcon DO Work Phone: Start: 12-21-[address] Mihir Alarcon Work Phone: Start: 12-21-2021 End: 12-21-2021 History and Physical Exam Procedure Note: See Note; NOTES: [facility] Medical Records Department [address] [place] [address] History Physical Exam 12/21/21 0759 MR#: [id number] Acct: [id number] Name: CIRILO CEBALLOS Rep #: [id number] : 1965 56 From: Yuan Chavez MD PCP: Dr. Cecy Alarcon, DO Status:[facility] Location: [place] [address] HPI - General HPI Narrative CIRILO CEBALLOS, is a 56 F who presents for surveillance colonoscopy. The patient had a very large polyp 3 years ago and was recommended to have repeat in 3 years. She denies any abdominal pain or blood in the stool. She has no family history of colon cancer. [facility] Medical History (Updated 12/21/21 @ 08:[address] Yuan Chavez MD) Arthritis Diabetes type 1, controlled Dietary restriction Easy bruising HTN (hypertension) Hyperlipidemia Hypothyroidism Knee pain Non-smoker Paresthesia PONV (postoperative nausea and vomiting) Postmenopausal Thyroid nodule Wears glasses Home Medications loratadine 10 mg PO DAILY 12/20/19 [History Last Taken Unknown] cholecalciferol (vitamin D3) 25 mcg (1,000 unit) capsule 25 mcg PO DAILY 09/04/20 [History Last Taken Unknown] flash glucose scanning reader #1 ea 02/08/21 [Rx Last Taken Unknown] flash glucose sensor #1 ea 02/08/21 [History Last Taken Unknown] lisinopril 20 mg tablet 20 mg PO QDAY #90 tab 03/18/21 [Rx Last Taken 12/21/21 06:00] flash glucose sensor #2 ea 07/11/21 [Rx Last Taken Unknown] insulin aspart U-100 100 unit/mL (3 mL) subcutaneous pen 20 unit SUBCUT TID #15 ml 09/14/21 [Rx Last Taken Unknown] levothyroxine 75 mcg tablet 75 mcg PO DAILY #90 tab 09/14/21 [Rx Last Taken 12/21/21 06:00] atorvastatin 20 mg tablet 20 mg PO QDAY #90 tab 11/11/21 [Rx Last Taken Unknown] insulin NPH isoph U-100 human 100 unit/mL (3 mL) subcutaneous pen 20 unit SUBCUT . 11/30/21 [History Last Taken Unknown] Allergy/AdvReac Type Severity Reaction Status Date / Time No Known Allergies Allergy Verified 12/21/21 07:24 Family History Mother Diabetes Bleeding disorder High cholesterol Cancer Heart disease Hypertension Melanoma Father Alcoholism Sister Colon cancer Diabetes Brother Diabetes Surgical History (Updated 12/16/21 @ 11:20 by Mechelle King) H/O colonoscopy History of arthroscopic knee surgery History of History of carpal tunnel release of both wrists History of lumpectomy of right breast Social History Smoking Status: Never smoker second hand exposure: No alcohol intake: current substance use type: does not use Past Medical/Surgical History Planned Operation Planned Operative Procedure/s: Colonoscopy S.O.S: No Previous Hospitalizations/Surgeries HX Hospitalizations: No HX of Surgeries: FATTY TUMOR ROMEVED FROM RIGHT BREAST 1992 1999 RIGHT CARPAL TUNNEL RELEASE 2003 2012 hysteroscopy d c colonoscopy/polypectomy 12/2019 right knee meniscus repair Any Problems With Anesthesia: Yes (PONV) You/Your Family Experience Fever (Hyperthermia) With Anes: No Cholinesterase deficiency: No Cardiovascular Hx Chest Pain within Last 2 months: No Hx of Irregular Heartbeat and/or Afib: No Hx Heart Attack: No Hx Congestive Heart Failure: No Hx Rheumatic Fever: No Hx Hypertension: Yes (per pt, controlled on meds) Hx Internal Defibrillator: No Hx Pacemaker: No Hx Cardiac Catheterization: No Hx Cardiac Surgery/Stents/Etc.: No Hx Stress Test: No Hx Pain in Legs when Walking/Leg Cramps: Yes (knee pain,right) Respiratory Chronic Cough: No HX of Shortness of Breath: Yes (slightly sob with 2 flights of stairs) Hoarseness: No Hx Chronic Obstructive Pulmonary Disease (COPD): No Hx Asthma: No Hx Emphysema: No Hx Sleep Apnea: No CPAP: No BIPAP: No Hx Respiratory Tract Infection/Cold (presently): No Do You Snore Loudly (louder than talking or can be heard): No Do You Often Feel Tired/ Fatigued/ Sleepy Dring Daytime?: No Has Anyone Observed You Stop Breathing During Sleep?: No Result (for STOP score): Negative Hx Smoking: No Smoking Status: Never smoker Gastrointestinal Hx Gastroesophageal Reflux: No Hx Gastrointestinal Disorders: Yes (hx polypectomy) Hx Gastrointestinal Bleed: No Hx Ulcer: No Hx Hiatal Hernia: No Difficulty Chewing/Swallowing: Yes (AT TIMES DIF SWALLOWING, HAS GOITERS) Special diet followed at home: Yes (DIABETIC DIET) Hx Unplanned Weight Loss of 20#: No HX Unplanned Weight Gain of 20#: No Neurological Hx Seizures: No HX Syncope/Blackout Spells/Unconsciousness: No Hx Transient Ischemic Attacks (TIA): No Hx Multiple Sclerosis: No Hx Parkinson's Disease: No Hx Head/Neck Injury: No Hx Headaches: Yes (occ) Hx Back Injury/Pain: No Recent Onset of Speech Difficulty: No Restless Legs: No Does patient have nerve stimulator: No Blood Disorder Hx Leukemia: No Bleeding Tendencies: Yes (bruises easily) Hx Deep Vein Thrombosis: No Hx High Cholesterol: Yes (ON MED) Blood Transmitted Disease: No Hx Hepatitis: No Hx Cirrhosis: No Hx Anemia: No (.) Hx Blood Disorders: No Reproduction : No Is Patient Lactating: No Hx Hysterectomy: No Hx Tubal Ligation: No Are You Post Menopause: Yes Genitourinary Hx Renal Disease: No Musculoskeletal Hx Arthritis: No Hx Rheumatoid Arthritis: No Hx Gout: No Recent Onset of an Orthopedic Problem: Yes (right knee) Endocrine Hx Diabetes: Yes (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) Insulin: Yes Thyroid Disease: Yes (nodules on thyroid) Hx Steroid Therapy: No (.) Psycho/Social Hx Substance Use: No Hx Alcohol Use: No Hx Anxiety: No Hx Depression: No Mental Illness: No Hx Dementia: No Miscellaneous Hx Cancer: No Recent Exposure to Contagious Disease: No Hx of C-Diff: No Any Loose Teeth: No Allergies No Known Allergies Allergy (Verified 12/21/21 07:24) Discharge Is Pt Admitted From a Penitentiary, or a Alf: No Who Could Help: family After D/C, Where Do you Plan to Go: Return Home Vital Signs Vital Signs Vital Signs: 12/21/21 07:25 Temperature 97 F L Temperature Source Temporal Pulse Rate 71 Respiratory Rate 16 Respiratory Pattern Normal Blood Pressure 128/67 H Blood Pressure Mean 87 Blood Pressure Source Monitor Blood Pressure Position Semi-Fowlers Blood Pressure Location Left Arm Pulse Ox 97 Oxygen Delivery Method Room Air Weight Weight: 149 lb 14.629 oz Body Mass Index (BMI) 27.3 Physical Exam Const alert and oriented x3 Resp normal respiratory effort and normal air movement Cardio regular rate and regular rhythm GI soft to palpation, non-tender and non-distended Assessment Plan Assessment/Plan (1) Colon cancer screening: (2) History of colon polyps: PLAN: Patient is here for surveillance colonoscopy for history of large colon polyp. I explained endoscopy in detail to the patient. I explained the risks including but not limited to stroke or heart attack with anesthesia, perforation of the GI tract, bleeding, infection. I explained that any of these could necessitate further emergency surgery. The patient understands and all questions were answered sufficiently. The patient wishes to proceed with procedure. Yuan Chavez MD Pager: [facility] [address] [place] [address], [address] [place] [address] Office: Surgery Risks - Colonoscopy Risks Include but are not Limited To: Risks include but are not limited to: Bleeding, perforation requiring further surgery, inability to complete colonoscopy requiring barium enema. 12/21/21 0801 <Electronically signed by Yuan Chavez MD> Cosigner Signature (if applicable): CC: Dr. Yuan Chavez MD; Dr. Cecy Alarcon DO Signed Cecy Alarcon DO Work Phone: Start: 11-30-2021 End: 11-30-2021 Endocrinology Visit Report Procedure Note: See Note; NOTES: [facility] [address] [place] [address] [address] [place] [id number] OFFICE VISIT Date of Service: 11/30/21 MR#: [id number] Acct: [id number] Name: CIRILO CEBALLOS Rep #: [id number] : 1965 Provider: Teressa Duron Age/Sex: 56/F Location: [facility] Status: Signed Intake Vital Signs 11/30/21 13:52 Height 5 ft 2 in Weight: 155 lb 2 oz BMI 28.3 BP 124/88 H Blood Pressure Location Rt brachial Position Sitting Respiration 18 Pulse 86 Pulse Source Monitor Temp 95.8 F L Temp Source Temporal Pulse Oximetry (%) 98 Oxygen Delivery Method room air Intake Visit Reasons: 4 M FU Chief Complaint: Diabetes 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: No Accompanied by: self Is patient in pain?: No Allergies No Known Allergies Allergy (Verified 11/30/21 13:58) PFSH Medical History Diabetes type 1, controlled HTN (hypertension) Hyperlipidemia Hypothyroidism Knee pain Paresthesia Thyroid nodule Surgical History H/O colonoscopy H/O lumpectomy H/O: History of History of carpal tunnel release History of carpal tunnel release of both wrists History of lumpectomy of right breast Family History Mother Diabetes Bleeding disorder High cholesterol Cancer Heart disease Hypertension Melanoma Father Alcoholism Sister Colon cancer Diabetes Brother Diabetes Social History Smoking Status: Never smoker second hand exposure: No alcohol intake: current substance use type: does not use HPI HPI Chief Complaint: Diabetes Details: CIRILO CEBALLOS, is a 56 F who presents to the office today for follow up. A1C is stable at 7.4% She is taking N 8 am and 17 pm and Novolog with meals. She is using Antonieta 2 CGM. Blood sugars are a bit variable due to N. She has terrible Moraima phenomenon. She has hypothyroidism. She has history of nodules, but last US showed none. She complains of fatigue, lack of energy, paresthesias of left arm. Her dog Ninoska ate a box of licorice and is ill. Exam Const General: cooperative, healthy appearing, comfortable, no acute distress, well developed and not cushingoid Nutritional Appearance: well nourished Orientation: alert, awake and oriented x3 HENMT Head: normal to inspection Ears: hearing grossly normal bilaterally Nose: external nose normal Mouth: oral mucosae normal Eyes General: appearance normal, both eyes and all related structures Alignment and Position: alignment normal Periorbital: periorbital findings normal Eyelids: eyelids normal Conjunctivae: conjunctivae normal Neck Neck: normal visual inspection Neck mass: No Thyroid: thyroid normal Carotids: no bruits Lymphatic: no lymphadenopathy noted Chest Chest palpation inspection: normal inspection of the chest Resp Effort Inspection: normal respiratory effort, able to speak in complete sentences, symmetric chest movement, no audible wheezes and no cough Auscultation: Bilateral: Clear to Auscultation Cardio Rate: regular rate Rhythm: regular rhythm GI Inspection: normal to inspection Palpation: soft Skin General: no rashes or lesions noted Neuro General: patient alert, patient awake and patient oriented x3 Cranial Nerves: CN's II-XI intact bilaterally Cognition: normal cognition Speech: speech normal Gait: normal gait Motor: muscle tone normal throughout Extrem General: no edema Psych Appearance: grossly normal Mental Status: mental status grossly normal Mood: congruent mood Affect: normal affect Speech and Movement: speech and movement normal Attitude: cooperative Thought Process: normal Thought Content: normal Judgment: judgment good Results POC A1C POC A1C 7.4 % Last Edit by Emmanuelle Galindo on 11/30/21 14:02 Coding Level of Care Code Off vis,est,level 4 Diagnoses Diabetes mellitus E10.65 Diabetes mellitus complication status: with hyperglycemia Diabetes mellitus type: type 1 HTN (hypertension) I10 Hypertension type: primary hypertension Mixed hyperlipidemia E78.2 Hypothyroidism (acquired) E03.9 Assessment and Plan Assessment and Plan (1) Diabetes mellitus: Status: Chronic Qualifiers: Diabetes mellitus complication status: with hyperglycemia Diabetes mellitus type: type 1 Qualified Code(s): E10.65 - Type 1 diabetes mellitus with hyperglycemia Orders: Orders: Vitamin D,25 Hydroxy Today Vitamin B12 Today Comprehensive Metabolic Profil Today Ferritin Today Lipid Profile Today T4 Free Direct Today Thyroid Stim Hormone (TSH) Today CBC W/Diff, Automated Today Microalb:Creat Ratio,Random UR Today Plan - Dr. Remberto Lubin MD: Diabetes education provided. Insulin pattern mangement. She is due for labs. (2) HTN (hypertension): Status: Chronic Qualifiers: Hypertension type: primary hypertension Qualified Code(s): I10 - Essential (primary) hypertension Orders: Orders: Vitamin D,25 Hydroxy Today Vitamin B12 Today Comprehensive Metabolic Profil Today Ferritin Today Lipid Profile Today T4 Free Direct Today Thyroid Stim Hormone (TSH) Today CBC W/Diff, Automated Today Microalb:Creat Ratio,Random UR Today Plan - Dr. Remberto Lubin MD: Controlled, please continue current medications. (3) Mixed hyperlipidemia: Status: Chronic Orders: Orders: Vitamin D,25 Hydroxy Today Vitamin B12 Today Comprehensive Metabolic Profil Today Ferritin Today Lipid Profile Today T4 Free Direct Today Thyroid Stim Hormone (TSH) Today CBC W/Diff, Automated Today Microalb:Creat Ratio,Random UR Today Plan - Dr. Remberto Lubin MD: Check levels and liver enzymes. (4) Hypothyroidism (acquired): Status: Chronic Orders: Orders: Vitamin D,25 Hydroxy Today Vitamin B12 Today Comprehensive Metabolic Profil Today Ferritin Today Lipid Profile Today T4 Free Direct Today Thyroid Stim Hormone (TSH) Today CBC W/Diff, Automated Today Microalb:Creat Ratio,Random UR Today Plan - Dr. Remberto Lubin MD: Take levothyroxine on an empty stomach with water at least four hours after eating. Then wait 30-60 minutes before consuming any other food or beverage, especially coffee. Separate levothyroxine from vitamins by at least 4 hours. Stop taking any biotin supplement 4 days prior to having labs drawn. Check labs today. I have spent [32] minutes today reviewing labs, records and history. Time includes coordinating care, interpretation of tests, discussion with patient's other health care providers via telephone. This also includes time I spent with the patient for exam, treatment plan and education as well as documenting clinical information. Plan Details Other Orders: Orders: Vitamin D,25 Hydroxy Today E55.9, R20.2 Vitamin B12 Today R20.2 Comprehensive Metabolic Profil Today R20.2 Ferritin Today R20.2 Lipid Profile Today R20.2 T4 Free Direct Today R20.2 Thyroid Stim Hormone (TSH) Today R20.2 CBC W/Diff, Automated Today R20.2 Microalb:Creat Ratio,Random UR Today R20.2 11/30/21 1427 <Electronically signed by Remberto Lubin MD> Date Remberto Lubin MD Cosigner Signature: Date (if applicable) CC: Dr. Cecy Alarcon, DO Cecy Alarcon DO Work Phone: Start: 07-05-2021 End: 07-06-2021 Endocrinology Visit Report Procedure Note: See Note; NOTES: [facility] [address] [place] [address] OFFICE VISIT Date of Service: 07/05/21 MR#: [id number] Acct: [id number] Name: CIRILO CEBALLOS Rep #: [id number] : 1965 Provider: Teressa Duron Age/Sex: 56/F Location: [facility] Status: Signed Intake Vital Signs 07/05/21 14:25 07/05/21 14:33 Height 5 ft 2 in Weight: 152 lb 8 oz BMI 27.8 29.0 BP 122/80 H Blood Pressure Location Rt brachial Position Sitting Respiration 18 Pulse 104 H Pulse Source Monitor Temp 97.3 F L Temp Source Temporal Pulse Oximetry (%) 97 Oxygen Delivery Method room air Intake Visit Reasons: 5M F/U Chief Complaint: Diabetes 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: No Accompanied by: self Is patient in pain?: No Allergies No Known Allergies Allergy (Verified 07/05/21 14:33) PFSH Medical History Diabetes type 1, controlled HTN (hypertension) Hyperlipidemia Hypothyroidism Knee pain Thyroid nodule Surgical History H/O colonoscopy H/O lumpectomy H/O: History of History of carpal tunnel release History of carpal tunnel release of both wrists History of lumpectomy of right breast Family History Mother Diabetes Bleeding disorder High cholesterol Cancer Heart disease Hypertension Melanoma Father Alcoholism Sister Colon cancer Diabetes Brother Diabetes Social History Smoking Status: Never smoker second hand exposure: No alcohol intake: current substance use type: does not use HPI HPI Chief Complaint: Diabetes Details: CIRILO CEBALLOS, is a 56 F who presents to the office today for follow up. A1C is 7.0% She is taking N bid and Novolog at meals. She is using Antonieta CGM. She is having some lows. She is not vaccinated against Covid and is worried about side affects of the vaccine as well as getting sick. Exam Const General: cooperative, healthy appearing, comfortable, no acute distress, well developed and not cushingoid Nutritional Appearance: well nourished Orientation: alert, awake and oriented x3 HENMT Head: normal to inspection Ears: hearing grossly normal bilaterally Nose: external nose normal Mouth: oral mucosae normal Eyes General: appearance normal, both eyes and all related structures Alignment and Position: alignment normal Periorbital: periorbital findings normal Eyelids: eyelids normal Conjunctivae: conjunctivae normal Neck Neck: normal visual inspection Neck mass: No Thyroid: thyroid normal Carotids: no bruits Lymphatic: no lymphadenopathy noted Chest Chest palpation inspection: normal inspection of the chest Resp Effort Inspection: normal respiratory effort, able to speak in complete sentences, symmetric chest movement, no audible wheezes and no cough Auscultation: Bilateral: Clear to Auscultation Cardio Rate: regular rate Rhythm: regular rhythm Pulses: posterior tibial pulses present GI Inspection: normal to inspection Auscultation: normal bowel sounds Palpation: soft and no hepatosplenomegaly Skin General: no rashes or lesions noted Neuro General: patient alert, patient awake and patient oriented x3 Cranial Nerves: CN's II-XI intact bilaterally Cognition: normal cognition Speech: speech normal Gait: normal gait Motor: muscle tone normal throughout Extrem General: no edema Psych Appearance: grossly normal Mental Status: mental status grossly normal Mood: congruent mood Affect: normal affect Speech and Movement: speech and movement normal Attitude: cooperative Thought Process: normal Thought Content: normal Judgment: judgment good Results POC A1C POC A1C 7.0 % Last Edit by Emmanuelle Swan on 07/05/21 14:36 Coding Level of Care Code Off vis,est,level 3 Diagnoses Diabetes mellitus E10.65 Diabetes mellitus type: type 1 Diabetes mellitus complication status: with hyperglycemia HTN (hypertension) I10 Hypertension type: primary hypertension Mixed hyperlipidemia E78.2 Overweight (BMI 25.0-29.9) E66.3 Assessment and Plan Assessment and Plan (1) Diabetes mellitus: Status: Chronic Qualifiers: Diabetes mellitus type: type 1 Diabetes mellitus complication status: with hyperglycemia Qualified Code(s): E10.65 - Type 1 diabetes mellitus with hyperglycemia Plan - Dr. Remberto Lubin MD: Diabetes education provided. Insulin pattern management. Reduce N by one unit bid. I counseled her regarding Covid-19 vaccine. Benefits outweigh risks. I encouraged her to get vaccinated. (2) HTN (hypertension): Status: Chronic Qualifiers: Hypertension type: primary hypertension Qualified Code(s): I10 - Essential (primary) hypertension Plan - Dr. Remberto Lubin MD: Controlled, please continue current medications. (3) Mixed hyperlipidemia: Status: Chronic Plan - Dr. Remberto Lubin MD: Continue statin. (4) Overweight (BMI 25.0-29.9): Status: Chronic Plan - Dr. Remberto Lubin MD: Nutritional counseling provided, avoid flour, sugar, and artificial sweeteners. I have spent [28] minutes today reviewing labs, records and history. Time includes coordinating care, interpretation of tests, discussion with patient's other health care providers via telephone. This also includes time I spent with the patient for exam, treatment plan and education as well as documenting clinical information. 07/06/21803 <Electronically signed by Remberto Lubin MD> Date Remberto Lubin MD Cosigner Signature: Date (if applicable) CC: Dr. Cecy Alarcon, DO Cecy Alarcon DO Work Phone: Start: 03-10-2021 End: 03-10-2021 Orthopedic Visit Report Procedure Note: See Note; NOTES: [facility] [address] [place] [id number] OFFICE VISIT Date of Service: 03/10/21 MR#: [id number] Acct: [id number] Name: CIRILO CEBALLOS Rep #: [id number] : 1965 Provider: KEYON Lign Age/Sex: 56/F Location: [facility] [place] [facility] Status: Signed Intake Vital Signs 03/10/21 12:54 BMI 29.0 Intake Visit Reasons: Euflexxa #3: R knee Allergies No Known Allergies Allergy (Verified 03/10/21 12:58) Medications loratadine 10 mg PO DAILY 12/20/19 [History Confirmed 03/10/21] lisinopril 20 mg tablet 20 mg PO QDAY #90 tab 03/17/20 [Rx Confirmed 03/10/21] cholecalciferol (vitamin D3) 25 mcg (1,000 unit) capsule 25 mcg PO DAILY 09/04/20 [History Confirmed 03/10/21] atorvastatin 20 mg tablet 20 mg PO QDAY #90 tab 12/18/20 [Rx Confirmed 03/10/21] flash glucose scanning reader #1 ea 02/08/21 [Rx Confirmed 03/10/21] flash glucose sensor #1 ea 02/08/21 [History Confirmed 03/10/21] insulin aspart U-100 100 unit/mL (3 mL) subcutaneous pen 20 unit SUBCUT TID #15 ml 02/10/21 [Rx Confirmed 03/10/21] levothyroxine 75 mcg tablet 75 mcg PO DAILY #90 tab 02/26/21 [Rx Confirmed 03/10/21] PFSH Medical History Diabetes type 1, controlled HTN (hypertension) Hyperlipidemia Hypothyroidism Knee pain Thyroid nodule Surgical History H/O colonoscopy H/O lumpectomy H/O: History of History of carpal tunnel release History of carpal tunnel release of both wrists History of lumpectomy of right breast Family History Mother Diabetes Bleeding disorder High cholesterol Cancer Heart disease Hypertension Melanoma Father Alcoholism Sister Colon cancer Diabetes Brother Diabetes Social History Smoking Status: Never smoker second hand exposure: No alcohol intake: current substance use type: does not use HPI Euflexxa #3: R knee Details: Parts of this documentation were recorded by a scribe, this documentation accurately reflects the service provided and the decisions made by me, KEYON Stephens 03/10/21 1252. CIRILO CEBALLOS is a 56 year old F here today for her 3rd Euflexxa injection of the Right Knee. Patietn states her pain is getting better. Patient does not have any new pains or increase in pain. Ortho Exam Right Knee Skin/Wound: No erythema, No ecchymosis and No swelling Contralateral Normal: Yes Homans Sign: No Knee ROM: Yes ROM-Extension -20 to 0 and Yes ROM-Flexion 0-140 Examination: Yes Med jt line tenderness, No Lat jt line tenderness, No Pain with flexion and No Pain with extention KNEE: No abnormalities inspection of the right knee. No localized or generalized swelling no evident effusions. No ecchymosis/bruising, erythema, or other skin changes. Patient does have good range of motion today. Palpation today reveals she does not have any pain on the lateral joint line. Still some minor pain on the medial joint line. Soft compartments throughout the lower leg. She is neurovascularly intact. No signs of DVT Office Meds Euflexxa Performing Provider: KEYON Atkins Administered by: KEYON Atkins on 03/10/21 12:59 Dose Route Admin Location Lot Number Expiration Date [facility] Manufactu rer 10 mg intra-articular right knee [id number] 04/13/22 [address]-3 [facility] Coding Level of Care Code Attention Unit Controller Diagnoses Osteoarthritis of right knee M17.11 Comment CPT???53214???Euflexxa series already applied Assessment and Plan Assessment and Plan (1) Osteoarthritis of right knee: Status: Acute Plan - KEYON Atkins: Patient presents for her third Euflexxa injection. Patient states that she actually has seen good improvement after the second injection. She notices a difference with physical activities. Today she does not have any lateral joint line tenderness and has only minimal/minor tenderness of the medial joint line. She has no questions or concerns regarding the injection today. Consent was signed in office today. Injection was given under normal sterile fashion with patient seated upright knee flexed to 90 degrees with gravity. An anterolateral approach used to deliver the contents of the syringe without resistance. Patient tolerated procedure with minimal discomfort. No complications were observed. Patient to ice and take an anti-inflammatory for the next few days. Monitor notify of any erythema, increased pain, swelling, or any other signs or symptoms. This note was generated with IP Ghoster dictation software. It may contain incorrect words, spelling, and punctuation that were not noted in checking the note before signing. Plan Details Other Orders: Orders: Euflexxa Injection Today 03/10/21 1537 <Electronically signed by Amy TA> Date Amy TA Cosigner Signature: Date (if applicable) CC: Cecy Jarrell DO Work Phone: Start: 03-03-2021 End: 03-03-2021 Orthopedic Visit Report Procedure Note: See Note; NOTES: [facility] [address] [place] [address] OFFICE VISIT Date of Service: 03/03/21 MR#: [id number] Acct: [id number] Name: CIRILO CEBALLOS TERRIE Rep #: [id number] : 1965 Provider: KEYON Ling Age/Sex: 56/F Location: [facility] [place] Status: Signed Intake Intake Visit Reasons: Euflexxa #2: R knee Chief Complaint: Diabetes Allergies No Known Allergies Allergy (Verified 03/03/21 13:01) Medications loratadine 10 mg PO DAILY 12/20/19 [History Confirmed 03/03/21] lisinopril 20 mg tablet 20 mg PO QDAY #90 tab 03/17/20 [Rx Confirmed 03/03/21] cholecalciferol (vitamin D3) 25 mcg (1,000 unit) capsule 25 mcg PO DAILY 09/04/20 [History Confirmed 03/03/21] atorvastatin 20 mg tablet 20 mg PO QDAY #90 tab 12/18/20 [Rx Confirmed 03/03/21] flash glucose scanning reader #1 ea 02/08/21 [Rx Confirmed 03/03/21] flash glucose sensor #1 ea 02/08/21 [History Confirmed 03/03/21] insulin aspart U-100 100 unit/mL (3 mL) subcutaneous pen 20 unit SUBCUT TID #15 ml 02/10/21 [Rx Confirmed 03/03/21] levothyroxine 75 mcg tablet 75 mcg PO DAILY #90 tab 02/26/21 [Rx Confirmed 03/03/21] PFSH Medical History Diabetes type 1, controlled HTN (hypertension) Hyperlipidemia Hypothyroidism Knee pain Thyroid nodule Surgical History H/O colonoscopy H/O lumpectomy H/O: History of History of carpal tunnel release History of carpal tunnel release of both wrists History of lumpectomy of right breast Family History Mother Diabetes Bleeding disorder High cholesterol Cancer Heart disease Hypertension Melanoma Father Alcoholism Sister Colon cancer Diabetes Brother Diabetes Social History Smoking Status: Never smoker second hand exposure: No alcohol intake: current substance use type: does not use HPI Euflexxa #2: R knee Details: Parts of this documentation were recorded by a scribe, this documentation accurately reflects the service provided and the decisions made by , KEYON Stephens 03/03/21 1253. CIRILO CEBALLOS is a 56 year old F here today to receive her 2nd Euflexxa injection in her right knee. Ortho Exam Right Knee Skin/Wound: No erythema, No ecchymosis and No swelling Contralateral Normal: Yes Homans Sign: No Knee ROM: Yes ROM-Extension -20 to 0 and Yes ROM-Flexion 0-140 Examination: Yes Med jt line tenderness, Yes Lat jt line tenderness, No Pain with flexion and No Pain with extention KNEE: No abnormalities inspection of the right knee. No localized or generalized swelling no evident effusions. No ecchymosis/bruising, erythema, or other skin changes. Patient does have good range of motion today. She does have still reproducible tenderness on palpation of the medial lateral joint line more prominent on the lateral joint line today. Soft apartment throughout, no calf tenderness, and negative Homans. Neurovascularly intact. Office Meds Euflexxa Performing Provider: KEYON Atkins Administered by: Zari Pierson on 03/03/21 13:15 Dose Route Admin Location Lot Number Expiration Date [place] Manufactu rer 10 mg intra-articular right knee [id number] 04/13/22 [address]-0 [facility] Coding Level of Care Code Willi Unit Controller Diagnoses Osteoarthritis of right knee M17.11 Comment CPT 81793 already applied for Euflexxa series. Assessment and Plan Assessment and Plan (1) Osteoarthritis of right knee: Status: Acute Plan - KEYON Atkins: Patient presents for her second Euflexxa injection of the right knee. At this time patient does not seem to really any improvement. No problems or complications with her last injection. All her questions today were answered regarding the injection and consent was signed in office today. Injection was then given again under normal sterile fashion with patient seated upright knee flexed to 90 degrees with gravity. An anterolateral approach used to deliver the contents of the syringe without resistance. Patient tolerated 0 minimal discomfort no complications were observed. Patient ice and take an anti-inflammatory for the next few days. Monitor notify of any erythema, warmth, discharge, or any other signs or symptoms. Patient return in 1 week for her third injection. This note was generated with IP Ghoster dictation software. It may contain incorrect words, spelling, and punctuation that were not noted in checking the note before signing. Plan Details Other Orders: Orders: Euflexxa Injection Today Follow Up: 1 Week 03/03/21 9200 <Electronically signed by Amy TA> Date Amy TA Cosigner Signature: Date (if applicable) CC: Cecy Alarcon DO Work Phone: Start: 02-24-2021 End: 02-24-2021 Orthopedic Visit Report Procedure Note: See Note; NOTES: [facility] [address] [place] [address] OFFICE VISIT Date of Service: 02/24/21 MR#: [id number] Acct: [id number] Name: CIRILO CEBALLOS Rep #: [id number] : 1965 Provider: KEYON Ling Age/Sex: 56/F Location: [facility] [place] Status: Signed Intake Vital Signs 02/18/21 15:58 02/24/21 12:50 Height 5 ft 2 in BMI 29.0 29.0 Intake Visit Reasons: Euflexxa #1: R knee Allergies No Known Allergies Allergy (Verified 02/24/21 12:56) Medications loratadine 10 mg PO DAILY 12/20/19 [History Confirmed 02/24/21] lisinopril 20 mg tablet 20 mg PO QDAY #90 tab 03/17/20 [Rx Confirmed 02/24/21] levothyroxine 75 mcg tablet 75 mcg PO DAILY #90 tab 06/29/20 [Rx Confirmed 02/24/21] cholecalciferol (vitamin D3) 25 mcg (1,000 unit) capsule 25 mcg PO DAILY 09/04/20 [History Confirmed 02/24/21] atorvastatin 20 mg tablet 20 mg PO QDAY #90 tab 12/18/20 [Rx Confirmed 02/24/21] flash glucose scanning reader #1 ea 02/08/21 [Rx Confirmed 02/24/21] flash glucose sensor #1 ea 02/08/21 [History Confirmed 02/24/21] insulin aspart U-100 100 unit/mL (3 mL) subcutaneous pen 20 unit SUBCUT TID #15 ml 02/10/21 [Rx Confirmed 02/24/21] [facility] Medical History Diabetes type 1, controlled HTN (hypertension) Hyperlipidemia Hypothyroidism Knee pain Thyroid nodule Surgical History H/O colonoscopy H/O lumpectomy H/O: History of History of carpal tunnel release History of carpal tunnel release of both wrists History of lumpectomy of right breast Family History Mother Diabetes Bleeding disorder High cholesterol Cancer Heart disease Hypertension Melanoma Father Alcoholism Sister Colon cancer Diabetes Brother Diabetes Social History Smoking Status: Never smoker second hand exposure: No alcohol intake: current substance use type: does not use HPI Euflexxa #1: R knee Details: Parts of this documentation were recorded by a scribe, this documentation accurately reflects the service provided and the decisions made by , KEYON Stephens 02/24/21 1248. CIRILO CEBALLOS is a 56 year old F here today for her 1st Euflexxa injection. Patient states her right knee is a bit more flared up today then normal. Ortho Exam Right Knee Skin/Wound: No erythema, No ecchymosis and No swelling Contralateral Normal: Yes Homans Sign: No Knee ROM: Yes ROM-Extension -20 to 0 and Yes ROM-Flexion 0-140 Examination: Yes Med jt line tenderness and Yes Lat jt line tenderness Stability: NML: Anterior Drawer and NML: Posterior Drawer Patella Grind: No KNEE: NO acute abnormalities on inspection. No swelling or signs of effusion today. No ecchymosis/bruising, or other skin changes to indicate infection. No calf tenderness. Neurovasculalry intact. Reproducible medial and lateral joint line tenderness. Office Procedures Euflexxa Procedure Details:: Obtained consent for injection. Under sterile conditions, injected the patients Euflexxa with her right knee. The patient tolerated the injection well without any noted complication. Patient should call our office if redness develops, pain worsens or if they have any concerns. Office Meds Euflexxa Performing Provider: KEYON Atkins Administered by: KEYON Atkins on 02/24/21 13:30 Dose Route Admin Location Lot Number Expiration Date [facility] Manufactu rer 10 mg intra-articular R knee [id number] 04/13/22 [address]-4 [facility] Coding Level of Care Code Attention Unit Controller Diagnoses Right knee pain M25.561 Osteoarthritis of right knee M17.11 Comment CPT - 62010 - injection/aspiration into a major joint/bursa (eufflexa series) Assessment and Plan Assessment and Plan (1) Right knee pain: Status: Acute (2) Osteoarthritis of right knee: Status: Acute Plan - KEYON Atkins: Patient with for first Euflexxa injection in series of 3. She has continued medial and lateral joint line tenderness although she does state that the brace does not seem to help although it has been sliding a little more and is becoming annoying she states. She continues to try to wear it just because it does seem to be helping. Also she has noticed with wearing the compression sleeve underneath that she has not noticed the swelling in her knee is much. We did discuss injections today and all her questions were answered. Consent was signed in office today. Injection was then given under normal sterile fashion with patient seated upright knee flexed 90 degrees with gravity. An anterolateral approach was used to limit the count to start without resistance. Patient tolerated the procedure with minimal discomfort. No complications observed. Patient to ice and take an anti-inflammatory for the next 3 days. Monitor notify of any erythema, warmth, discharge, swelling, or any other signs or symptoms. This note was generated with IP Ghoster dictation software. It may contain incorrect words, spelling, and punctuation that were not noted in checking the note before signing. Plan Details Other Orders: Orders: Euflexxa Injection Today Follow Up: 1 Week 02/24/21 4740 <Electronically signed by Amy TA> Date Amy TA Cosigner Signature: Date (if applicable) CC: Cecy Alarcon DO Work Phone: Start: 02-15-2021 End: 02-17-2021 Thyroid Procedure Note: See Note; NOTES: [facility] Imaging Services [address] [place] [address] [place] [address] Thyroid MR#: [id number] Acct: [id number] Name: CIRILO CEBALLOS TERRIE Rep #: [id number] : 1965 F 56 From: Kan Peterson MD PCP: Dr. Cecy Alarcon, DO Status: REG CLI Study: Thyroid Date of Exam: 02/15/21 Exam# [id number] Ordering Dr: Netta Rouse STROKE COORDINATOR-C HISTORY: HYPOTHYROIDISM EXAMINATION: US Thyroid (eg thyroid, parathyroid, parotid) TECHNIQUE: Abbott scale and color doppler imaging was performed of the thyroid gland. COMPARISON: None FINDINGS: RIGHT THYROID LOBE: 4.5 x 1.7 x 1.3 cm. Heterogenous echotexture with normal vascularity. Nodules: No thyroid nodules are present. LEFT THYROID LOBE: 4.5 x 1.4 x 1.1 cm. Heterogenous echotexture with normal vascularity. Nodules: No thyroid nodules are present. ISTHMUS: 4 mm. Nodules: No thyroid nodules are present. US/Thyroid IMPRESSION: Negative thyroid ultrasound examination. ACR TI-RADS recommendations ([employer] Radiol 2017): Based on composition, echogenicity, shape, margin, and echogenic foci. TR5 (=7 points) - Highly suspicious FNA if = 1cm, follow up if 0.5-0.9 cm every year for 5 years TR4 (4 - 6 points) - Moderately suspicious FNA if = 1.5cm, follow - up if 1-1.4 cm in 1, 2, 3 and 5 years TR3 (3 points) - Mildly suspicious FNA if = 2.5cm, follow - up if 1.5-2.4 cm in 1, 3 and 5 years TR2 (2 points) - Not suspicious No FNA or follow-up TR1 (0 points) - Benign No FNA or follow-up -Biopsy no more than 2 nodules which meet FNA criteria. -Follow/report no more than 4 nodules with highest TR point totals. -Follow-up can stop at 5 years if there is no change in size. -If nodule TR level increases on follow-up the next sonogram should be done in one year. at 0054 Reported and signed by: Kan Peterson MD Electronically Signed: Kan Peterson MD at 0:52 EDT Tel , Service support , CC: ELEANOR Rouse; Dr. Cecy Alarcon DO Supervisor Die Casting: Signed Cecy Alarcon DO Work Phone: Start: 02-08-2021 End: 02-08-2021 Endocrinology Visit Report Procedure Note: See Note; NOTES: [facility] [address] [place] [address] OFFICE VISIT Date of Service: 02/08/21 MR#: [id number] Acct: [id number] Name: CIRILO CEBALLOS TERRIE Rep #: [id number] : 1965 Provider: ELEANOR chavira Age/Sex: 55/F Location: [facility] [place] Status: Signed Intake Vital Signs 02/08/21 14:30 02/08/21 14:46 Height 5 ft 2 in Weight: 156 lb 6 oz BMI 28.5 29.0 BP 124/78 H Blood Pressure Location Rt brachial Position Sitting Respiration 16 Pulse 96 Pulse Source Monitor Temp 97.2 F L Temp Source Temporal Pulse Oximetry (%) 97 Oxygen Delivery Method room air Intake Visit Reasons: 5 MO FU Chief Complaint: Diabetes 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: No Accompanied by: Self Allergies No Known Allergies Allergy (Verified 02/08/21 14:41) [facility] Medical History (Updated 02/08/21 @ 15:36 by ELEANOR Vora) Diabetes type 1, controlled HTN (hypertension) Hyperlipidemia Hypothyroidism Knee pain Thyroid nodule Surgical History H/O colonoscopy H/O lumpectomy H/O: History of History of carpal tunnel release History of carpal tunnel release of both wrists History of lumpectomy of right breast Family History Mother Diabetes Bleeding disorder High cholesterol Cancer Heart disease Hypertension Melanoma Father Alcoholism Sister Colon cancer Diabetes Brother Diabetes Social History (Updated 11/09/20 @ 14:14 by Amy TA, PA) Smoking Status: Never smoker second hand exposure: No alcohol intake: current substance use type: does not use HPI HPI Chief Complaint: Diabetes Details: CIRILO CEBALLOS, is a 55 F who presents to the office today for evaluation and management of her diabetes. A1C today is 7.9%, up from 7.1% in August of this year. She takes Humalog at mealtime 04-25-13. She takes Tresiba 26 u daily. She is using [employer] antonieta 2 CGM. Complains that lately her reader will be in her pocket and say out of range. Approximately 2 years old. 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 She complains of low's every 2-3 days around 1500. She is interested in pursing the [employer] Dash if it is affordable. Uses savings cards to afford current insulins. She does have a known history of hypothyroidism that she takes levothyroxine for, had a thyroid ultrasound 06/2018 that measured 9 mm at it's largest point and required continued monitoring. Comp lains of tenderness to left lateral neck. Last thyroid labs WNL. Of note-She is currently undergoing treatment for a failed meniscal repair to her right knee. Her labs in August 2020 showed slightly elevated calcium and elevated alkaline phosphatase. Denies symptoms of hypercalcemia; currently taking daily vitamin D supplementation. She denies any other acute concerns. Exam Const General: cooperative, healthy appearing, comfortable and no acute distress Nutritional Appearance: average body habitus Orientation: alert, awake and oriented x3 HENMT Head: normal to inspection Ears: hearing grossly normal bilaterally Nose: external nose normal Eyes General: appearance normal, both eyes and all related structures Alignment and Position: alignment normal Sclera: sclerae normal Neck Neck: normal visual inspection and full ROM Neck mass: No Chest Chest palpation inspection: normal inspection of the chest Resp Effort Inspection: normal respiratory effort, able to speak in complete sentences, symmetric chest movement, no audible wheezes and no cough GI Inspection: normal to inspection Musc Musculoskeletal: Yes joint tenderness (right knee, ongoing following meniscal tear) Skin General: no rashes or lesions noted Neuro General: patient alert, patient awake and patient oriented x3 Cognition: normal cognition Speech: speech normal Gait: normal gait Extrem General: normal to inspection and no edema Psych Appearance: grossly normal Mental Status: mental status grossly normal Mood: congruent mood Affect: normal affect and tearful Speech and Movement: speech and movement normal Attitude: cooperative Thought Process: normal Thought Content: normal Judgment: judgment good Results POC A1C POC A1C 7.9 % Last Edit by Emmanuelle Swan on 02/08/21 14:48 Coding Level of Care Code Off vis,est,level 3 Diagnoses Diabetes mellitus E10.65 Diabetes mellitus type: type 1 Diabetes mellitus complication status: with hyperglycemia HTN (hypertension) I10 Hypertension type: primary hypertension Hypothyroidism (acquired) E03.9 Mixed hyperlipidemia E78.2 Assessment and Plan Assessment and Plan (1) Diabetes mellitus: Status: Chronic Qualifiers: Diabetes mellitus type: type 1 Diabetes mellitus complication status: with hyperglycemia Qualified Code(s): E10.65 - Type 1 diabetes mellitus with hyperglycemia Plan - Netta Rouse NP-C: Chronic- stable. Diabetes education provided. Decrease Tresiba from 26 u to 24 u daily to avoid afternoon lows. Be more aggressive with meal time insulin at breakfast and dinner. Discussed adding insulin N at bedtime to help alleviate moraima phenomenon. Consider pursing Omn[employer]od Dash Sent in for new Method CRMe reader. Follow up in 5 months. Wait for one year to recheck calcium and vitamin D levels unless she becomes symptomatic in the meantime. (2) HTN (hypertension): Status: Chronic Qualifiers: Hypertension type: primary hypertension Qualified Code(s): I10 - Essential (primary) hypertension Plan - Netta Rouse NP-C: Chronic- stable. Continue current medication regimen. (3) Hypothyroidism (acquired): Status: Chronic Orders: Orders: Thyroid Today Alice - ROBBIE VoraC: Chronic- stable. Continue current dose of levothyroxine. Take on an empty stomach, 4 hours after last oral intake. Separate other medications/supplements 4 hours from medication. Wait 60 minutes after taking levothyroxine before eating/drinking any non-water beverage. If taking biotin supplement, discontinue use 4 days prior to labs. Repeat thyroid ultrasound. (4) Mixed hyperlipidemia: Status: Chronic Plan - ROBBIE VoraC: Chronic- stable. Continue current medication regimen. I have spent [32] minutes today reviewing labs, records and history. Time includes coordinating care, interpretation of tests, discussion with patient's other health care providers via telephone. This also includes time I spent with the patient for exam, treatment plan and education as well as documenting clinical information. Plan Details Other Medications: New: flash glucose scanning reader ([employer] Antonieta 2 [place]) As directed 1 ea 0RF flash glucose scanning reader ([employer] Antonieta 2 [place]) As directed 1 ea 0RF 02/08/21 1539 <Electronically signed by Netta AVALOSC> Date Netta WEBSTER Cosigner Signature: Date (if applicable) CC: DO Cecy Patino DO Work Phone: Start: 02-01-2021 End: 02-02-2021 Knee 4 or More Views Procedure Note: See Note; NOTES: [facility] [address] [place] [address] Knee 4 or More Views MR#: [id number] Acct: [id number] Name: CIRILO CEBALLOS TERRIE Rep #: [id number] : 1965 F 55 From: Chon Matute MD PCP: Dr. Cecy Alarocn DO Status: DEP AMB Study: Knee 4 or More Views Date of Exam: 02/01/21 Exam# [id number] Ordering Dr: Amy Ling PA History: pain Right knee 4 views: Findings: No acute fracture, subluxation or joint effusion. No joint space narrowing or soft tissue abnormality. IMPRESSION: No acute abnormality. at 1655 Reported and signed by: Chon Matute MD Electronically Signed: Chon Matute MD at 16:54 EDT Tel , Service support , RAD/Knee 4 or More Views CC: KEYON Ling; Dr. Cecy Alarcon DO Supervisor Die Casting: Signed Cecy Alarcon DO Work Phone: Start: 02-01-2021 End: 02-01-2021 Orthopedic Visit Report Procedure Note: See Note; NOTES: [facility] [address] [place] [address] [address] [place] [address] OFFICE VISIT Date of Service: 02/01/21 MR#: [id number] Acct: [id number] Name: CIRILO CEBALLOS Rep #: [id number] : 1965 Provider: KEYON Ling Age/Sex: 55/F Location: [facility] [place] Status: Signed Intake Intake Visit Reasons: RIGHT KNEE Allergies No Known Allergies Allergy (Verified 02/01/21 14:48) Medications loratadine 10 mg PO DAILY 12/20/19 [History Confirmed 02/01/21] insulin degludec 100 unit/mL (3 mL) subcutaneous pen 26 unit SC DAILY ml 03/17/20 [History Confirmed 02/01/21] lisinopril 20 mg tablet 20 mg PO QDAY #90 tab 03/17/20 [Rx Confirmed 02/01/21] levothyroxine 75 mcg tablet 75 mcg PO DAILY #90 tab 06/29/20 [Rx Confirmed 02/01/21] cholecalciferol (vitamin D3) 25 mcg (1,000 unit) capsule 25 mcg PO DAILY 09/04/20 [History Confirmed 02/01/21] atorvastatin 20 mg tablet 20 mg PO QDAY #90 tab 12/18/20 [Rx Confirmed 02/01/21] insulin lispro 200 unit/mL (3 mL) subcutaneous pen 15 unit SUBCUT TID ml 02/01/21 [History] [facility] Medical History (Updated 02/01/21 @ 16:15 by KEYON Atkins) Diabetes type 1, controlled HTN (hypertension) Hyperlipidemia Hypothyroidism Knee pain Thyroid nodule Surgical History H/O colonoscopy H/O lumpectomy H/O: History of History of carpal tunnel release History of carpal tunnel release of both wrists History of lumpectomy of right breast Family History Mother Diabetes Bleeding disorder High cholesterol Cancer Heart disease Hypertension Melanoma Father Alcoholism Sister Colon cancer Diabetes Brother Diabetes Social History (Updated 11/09/20 @ 14:14 by Amy TA, PA) Smoking Status: Never smoker second hand exposure: No alcohol intake: current substance use type: does not use HPI RIGHT KNEE Details: Parts of this documentation were recorded by a scribe, this documentation accurately reflects the service provided and the decisions made by me, KEYON Stephens 02/01/21 0750. CIRILO CEBALLOS is a 55 year old F here today for F/u on rt knee scope dos.11/04/20. Patient is distressed today. Voiced she is frustrated and feels the same way she did prior to surgery. Voiced her knee is retaining fluid again. Pain: medial, and where her repair was, with some inner knee pain (anterior). Patient has been taking Tylenol and wearing a knee sleeve. Starting to pop, click and snap. With standing, and when she applies weight, pain begins. Reports stiffness. Denies any tingling and numbness. According to patient, pain returned approx 1.5 weeks after her last office visit from 12/21/20. ROS [facility] [place] Reports system reviewed and no additional complaints, except as documented and Reports as per HPI Ortho Exam Right Knee Skin/Wound: No erythema, No ecchymosis and No swelling Homans Sign: No Knee ROM: Yes ROM-Extension -20 to 0 and Yes ROM-Flexion 0-140 Examination: Yes Med jt line tenderness, No Lat jt line tenderness, No TTP inf pole patella, No Crepitus, No Pain with flexion, No Pain with extention, No Kely's Test, No Gastelum's, No TTP Patellar tendon, No TTP Tibial tubercle and No TTP Pes Anserine Quad Atrophy: No Stability: NML: Anterior Drawer Patella Grind: No KNEE: Inspection of the right knee shows some minor evidence of swelling. There is no ecchymosis/bruising, or other skin changes in the lower extremity. Patient does have reproducible tenderness primarily in the medial joint line. She does have full range of motion with some minor discomfort again within the medial joint line and some tightness posteriorly likely secondary to swelling. No catching/clicking with Kely's or evidence of meniscus. She has normal sensation throughout the extremity. Coding Level of Care Code Global Post Op Diagnoses Right knee pain M25.561 Assessment and Plan Assessment and Plan (1) Right knee pain: Status: Acute Orders: Orders: Knee 4 or More Views Today Plan - Amy TA PA: Patient presents for recheck of right knee. Patient states that about 10 days after she was here last she started to have some discomfort in the medial joint line again as well as some swelling of the knee. She feels that she cannot function without the knee sleeve. She states the knee sleeve provides good pressure and support and allows her to move pretty well. Physical exam today shows reproducible tenderness within the medial joint line. Radiographs taken today show some minor narrowing in the medial joint line. We did discuss her pictures as well as the operative exam showing grade 3 changes of the tibial plateau and grade 2 changes in the femoral condyle. Discussed arthritis in detail including the pathophysiology. At this time we are to try some different things to provide her some relief. We are to try a medial internal affairs commander brace to see if we can keep the medial joint from taking all of the force. She should continue with therapy exercises at home for strengthening the VMO. Today she has no evidence patellofemoral grinding and negative Loi's test. We have been are going to look into Euflexxa injections since she cannot tolerate the steroid injections well as they really cause havoc on her sugars. If the brace alone works then we can hold off any injections but again we will look into these to see about coverage with her insurance. Patient is here to follow-up in probably 4 to 6 weeks or sooner if she has any worsening or other symptoms. This note was generated with [employer] software. It may contain incorrect words, spelling, and punctuation that were not noted in checking the note before signing. Plan Details Follow Up: 6 Weeks 02/01/21 3077 <Electronically signed by Amy TA> Date Amy Duke Signature: Date (if applicable) CC: Cecy Alarcon DO Work Phone: Start: 12-21-2020 End: 12-21-2020 Orthopedic Visit Report Procedure Note: See Note; NOTES: [facility] [address] [place] [address] [address] [place] [address] OFFICE VISIT Date of Service: 12/21/20 MR#: [id number] Acct: [id number] Name: CIRILO CEBALLOS Rep #: [id number] : 1965 Provider: KEYON Ling Age/Sex: 55/F Location: [facility] [place] Status: Signed Intake Vital Signs 12/21/20 13:21 BMI 29.0 Intake Visit Reasons: 1 M FU Allergies No Known Allergies Allergy (Verified 10/28/20 10:19) PFSH Medical History (Updated 12/08/20 @ 15:07 by KEYON Atkins) Diabetes type 1, controlled HTN (hypertension) Hyperlipidemia Hypothyroidism Knee pain Thyroid nodule Surgical History H/O colonoscopy H/O lumpectomy H/O: History of History of carpal tunnel release History of carpal tunnel release of both wrists History of lumpectomy of right breast Family History Mother Diabetes Bleeding disorder High cholesterol Cancer Heart disease Hypertension Melanoma Father Alcoholism Sister Colon cancer Diabetes Brother Diabetes Social History (Updated 11/09/20 @ 14:14 by Amy TA PA) Smoking Status: Never smoker second hand exposure: No alcohol intake: current substance use type: does not use HPI 1 M FU Details: Parts of this documentation were recorded by a scribe, this documentation accurately reflects the service provided and the decisions made by me, KEYON Stephens 12/21/20 1320. CIRILO CEBALLOS is a 55 year old F here today for 6 week post op appointment. DOS: 11/04/20. Procedure: right knee partial medial meniscectomy and synovectomy. She states that overall she feels great. She has no pain and does not need to take anything for pain. She is doing a HEP and that is going well. She does it multiple times per week. She feels she can do everything she wants to do physically. She states that occasionally when she does a lot she puts a compressive sleeve on for comfort and this works. However, she gets lower extremity swelling when she does this that starts at the ankle and goes up the leg. She has no numbness/tinging/instabilit y, locking or other associated symptoms. She has no concerns at this time. ROS Const Denies chills and Denies fever(s) ENT Denies neck pain Card Denies dyspnea Resp Denies dyspnea GI Denies nausea and Denies vomiting Musc Denies abnormal gait, Denies arthralgias, Denies back pain, Denies joint swelling, Denies neck pain, Denies numbness and Denies tingling Skin/Breast Denies rash Neuro No abnormal gait, No numbness and No tingling Ortho Exam General General: Yes no acute distress Neurologic: Yes alert and Yes oriented x3 Psychologic: Yes reasonable and appropriate Right Knee Date of Surgery: 11/04/20 Skin/Wound: Yes healed, No erythema, No ecchymosis and No swelling Contralateral Normal: Yes Homans Sign: No Knee ROM: Yes ROM-Extension -20 to 0 and Yes ROM-Flexion 0-140 (120 degrees) Examination: No Med jt line tenderness, No Lat jt line tenderness, No TTP inf pole patella, No Crepitus, No Pain with flexion, No Pain with extention, No Kely's Test, No Gastelum's, No TTP Pes Anserine and No Illiotibial band tenderness Patella Grind: No KNEE: Neurovascularly intact. Strength 5/5. Distal pulses 2/4. Soft compartments, negative Homans. Incision sites well healed with no signs of infection. No pitting edema. No joint effusion. Coding Level of Care Code Global Post Op Diagnoses Orthopedic aftercare Z47.89 Assessment and Plan Assessment and Plan (1) Orthopedic aftercare: Status: Acute Plan - Amy TA PA: Patient seen today for 6-week postop check. Patient is doing extremely well at this time having no concerns or complaints. She has been doing all activities as desired without any problems. Incision sites show great approximation without signs of infection or inflammation. Range of motion is great and no evident weakness. Neurovascularly intact throughout soft compartments negative Homans. Patient can continue with activities as tolerated. She can ice or take an NSAID if she has any pains or problems. This note was generated with [employer] software. It may contain incorrect words, spelling, and punctuation that were not noted in checking the note before signing. Plan Details Follow Up: 6 Weeks 12/21/20 1403 <Electronically signed by Amy TA> Date Amy TA 12/21/20 1404<Electronically signed by Kenyetta TA> Cosigner Signature: Date (if applicable) Kenyetta Baez CC: Cecy Alarcon DO Work Phone: Start: 11-16-2020 End: 12-08-2020 Orthopedic Visit Report Procedure Note: See Note; NOTES: [facility] [address] [place] [id number] OFFICE VISIT Date of Service: 11/16/20 MR#: [id number] Acct: [id number] Name: CIRILO CEBALLOS TERRIE Rep #: [id number] : 1965 Provider: KEYON Ling Age/Sex: 55/F Location: [facility] [place] Status: Signed Intake Vital Signs 11/16/20 13:33 BMI 29.0 Intake Visit Reasons: right knee Chief Complaint: Diabetes Allergies No Known Allergies Allergy (Verified 10/28/20 10:19) [facility] Medical History (Updated 12/08/20 @ 15:07 by Amy TA PA) Diabetes type 1, controlled HTN (hypertension) Hyperlipidemia Hypothyroidism Knee pain Thyroid nodule Surgical History H/O colonoscopy H/O lumpectomy H/O: History of History of carpal tunnel release History of carpal tunnel release of both wrists History of lumpectomy of right breast Family History Mother Diabetes Bleeding disorder High cholesterol Cancer Heart disease Hypertension Melanoma Father Alcoholism Sister Colon cancer Diabetes Brother Diabetes Social History (Updated 11/09/20 @ 14:14 by Amy TA PA) Smoking Status: Never smoker second hand exposure: No alcohol intake: current substance use type: does not use HPI right knee Details: Parts of this documentation were recorded by a scribe, this documentation accurately reflects the service provided and the decisions made by Amy ovalle PA 11/16/20 1412. CIRILO CEBALLOS is a 55 year old F here today for 2-week postop for right knee arthroscopy with extensive synovectomy and partial meniscectomy. Patient continues to do very well having minimal discomfort at this time. She has very minimal swelling. She denies skin changes, numbness or tingling, calf tenderness, or other complaints. She has been full weightbearing at this time with a normal gait. Ortho Exam Right Knee Skin/Wound: Yes healing, Yes suture/dano removed, No ecchymosis and No swelling Contralateral Normal: Yes Homans Sign: No Knee ROM: Yes ROM-Extension -20 to 0 and Yes ROM-Flexion 0-140 Examination: No Med jt line tenderness, No Lat jt line tenderness, No TTP inf pole patella, No Crepitus and No Pain with flexion KNEE: Inspection the right knee shows no acute abnormalities. There is good approximation of the wound edges without any erythema, discharge, warmth, or other signs of inflammation or infection. At this time there is no evident effusion and no evidence of swelling. She has soft compartments throughout the lower extremity, no calf tenderness, and a negative Homans. Coding Level of Care Code Global Post Op Diagnoses Orthopedic aftercare Z47.89 Assessment and Plan Assessment and Plan (1) Orthopedic aftercare: Status: Acute Plan: Patient presents the office today for 2-week follow-up of right knee arthroscopy with synovectomy and partial medial meniscectomy. Patient continues to be doing very well stating again that this is just different than her previous arthroscopy and that she is not having hardly any discomfort at all and has no more swelling in the knee. Incision sites show no signs of inflammation or infection and she has no signs of DVT. At this time patient can continue to ice, elevate, and take an anti- inflammatory as needed. She can continue to weight-bear as tolerated. Would avoid squatting, deep lunges, or any twisting at this time as she continues to work on strengthening. We did discuss physical therapy versus home exercise program. She would like to start with some home exercises herself. She would like to go to formal physical therapy she is to just notify and can give her a prescription. Notify of any new injuries, increased pain, swelling, and/or any other signs or symptoms. We will recheck patient in 1 month for 6-week postop check. This note was generated with [employer] dictation software. It may contain incorrect words, spelling, and punctuation that were not noted in checking the note before signing. 12/08/20 1510 <Electronically signed by Amy TA> Date Amy TA Cosigner Signature: Date (if applicable) CC: Cecy Jarrell DO Work Phone: Start: 11-09-2020 End: 11-09-2020 Orthopedic Visit Report Procedure Note: See Note; NOTES: [facility] [address] [place] [address] OFFICE VISIT Date of Service: 11/09/20 MR#: [id number] Acct: [id number] Name: CIRILO CEBALLOS Rep #: [id number] : 1965 Provider: KEYON Ling Age/Sex: 55/F Location: [facility] [place] Status: Signed Intake Intake Visit Reasons: right knee Chief Complaint: Diabetes Allergies No Known Allergies Allergy (Verified 10/28/20 10:19) [facility] Medical History (Updated 08/17/20 @ 18:[address] Remberto Lubin MD) Diabetes type 1, controlled (Acute) Hyperlipidemia (Acute) Hypothyroidism (Acute) Knee pain (Acute) Thyroid nodule (Acute) HTN (hypertension) (Chronic) Surgical History H/O colonoscopy (Acute) H/O lumpectomy (Acute) H/O: (Acute) History of (Acute) History of carpal tunnel release (Acute) History of carpal tunnel release of both wrists (Acute) History of lumpectomy of right breast (Acute) Family History Mother Diabetes Bleeding disorder High cholesterol Cancer Heart disease Hypertension Melanoma Father Alcoholism Sister Colon cancer Diabetes Brother Diabetes Social History (Updated 11/09/20 @ 14:14 by KEYON Atkins) Smoking Status: Never smoker second hand exposure: No alcohol intake: current substance use type: does not use HPI right knee: Details: Parts of this documentation were recorded by a scribe, this documentation accurately reflects the service provided and the decisions made by Amy ovalle PA 11/09/20 1328. CIRILO CEBALLOS is a 55 year old F here today for follow up after surgery on 11/04/20. Patient states she has not taken any pain medication for any pain she has had. Patient states the pain has nt been bad enough for medication. Ortho Exam Right Knee Skin/Wound: Yes healing, No suture/dano removed, No erythema, No ecchymosis, No swelling Contralateral Normal: Yes Homans Sign: No Knee ROM: Yes ROM-Extension -20 to 0 Examination: No Med jt line tenderness, No Lat jt line tenderness Stability: NML: Anterior Drawer KNEE: Patient has no abnormalities on inspection of the knee. There is no localized or generalized swelling and no evident effusions. Her incision sites show good approximation without any signs of inflammation or infection (sutures noted in good position). She has soft compartments throughout the lower extremity, no calf tenderness, and a negative Homans. She has normal sensation throughout the extremity. Assessment Plan Problems 1. Orthopedic aftercare Z47.89 Plan Patient presents the office today 1 week postop for right knee arthroscopy with medial meniscectomy and extensive synovectomy. At this time patient states she is doing very well and states she does feel a difference already and that she is able to stand without pain. Also per patient and noted on physical exam there is no evidence of effusion and she really does not have any evident swelling today. Incisions show great approximation without signs of inflammation or infection. No signs of DVT at this time. Patient is to continue to ice and take an anti-inflammatory. She is able to continue to weight-bear as tolerated. We did discuss that she does have stitches in place and therefore needs to be careful with overdoing it especially with flexion as to not disturb and irritate the sutures. Patient will follow up in 1 week for 2-week postop check. Patient can shower normally I do not want her soaking/submersing her incision sites. Notify sooner of any new injuries, increased pain, swelling, and/or any other signs or symptoms This note was generated with IP Ghoster dictation software. It may contain incorrect words, spelling, and punctuation that were not noted in checking the note before signing. Plan Detail Follow Up 1 Week Coding Level of Care Code Global Post Op Diagnoses Orthopedic aftercare Z47.89 11/09/20 1878 <Electronically signed by Amy TA> Date Amy TA Cosigner Signature: Date (if applicable) CC: Cecy Jarrell DO Work Phone: Start: 11-04-2020 End: 11-06-2020 Operative Report Comments: See Note; NOTES: [facility] Medical Records Department [address] [place] [address] Operative Report 11/04/20 0836 MR#: [id number] Acct: [id number] Name: CIRILO CEBALLOS Rep #: [id number] : 1965 55 From: Romi Hamm DO PCP: Dr. Cecy Alarcon, DO Status:[facility] Location: [facility] [place] Report of Operation Date of Procedure: 11/04/20 Pre-Operative Diagnosis: right knee recurrent medial meniscus tear, pain/synovitis Post-Operative Diagnosis: same Surgery/Procedure Performed:: sark, pmm, synovectomy industrial roof plumber: Amy Ling Type of Anesthesia:: General Anesthesiologist: Cristofer Nobles Estimated Blood Loss (mL): min Fluids Replaced: 450 cc Description of Procedure: Preop note Patient 55-year-old female with continued right knee after right knee medial meniscus repair. Risk- benefit patient failed consider treatment MRI confirms that she had a previous meniscus repair looks like partially repaired partial part of it is a radial tear on the more mid body. Patient is also having pain laterally as appears to be from swelling. Risk benefits alternatives surgery discussed with patient. Risk include but not limited to blood loss, blood clot, infection, neurovascular, failure procedure, loss of life and loss of limb. Patient is aware would like proceed with right knee arthroscopy repair as indicated Covid we discussed the current risk associated COVID-19. While it is understood that there is a community spread of COVID 19 the risk of mary COVID-19 while at [facility] is very low, however, the risk cannot be completely mitigated because of the community spread of the disease. We discussed in detail the risk of exposure to and or potential harm posed by the COVID-19 virus with having a surgery/procedure at this time versus the risk of delaying the surgery/procedure. Is not possible to know either the risk of delaying the surgery procedure or chance of getting an infection with perfect accuracy, but a joint decision was made to proceed at this time with a schedule surgery/procedure as indicated on the consent form. Patient was notified that we will need to comply with any screening or testing [facility] wishes to perform or that surgery may be delayed for any positive results. Operative note Patient seen and examined preoperative area. Right knee was marked. Patient brought to the operating room placed supine on the operating table. Signed, anesthesia, antibiotics were administered. The right leg was prepped and draped usual sterile technique with a tourniquet around upper thigh. All bony promises well-padded SCD placed on her contralateral limb. We marked out our incision from her previous meniscectomy meniscectomy. Timeout was performed then right leg was then elevated exsanguinated tourniquet is raised for pressure of 250 torr. Use 11 blade to create her anterior lateral portal began a diagnostic arthroscopy. Patellofemoral joint was unremarkable moved to the medial joint line created anterior medial portal and direct visualization. There was extensive scarring fibrosis in the anteromedial anterior lateral recesses. We then resected this with, with a shaver. We then were able to visualize medial meniscus tear. The posterior horn medial meniscus had maintained from the repair but there is a new radial flap tear on the more mid body him this was removed and shaved and delineated with a combination of a shaver and a basket to a stable transition. We then reinserted probe and we did have a stable meniscus remaining. She had grade 3 eburnated changes across her entire tibial plateau and she has grade 2 fibrillated changes in the medial femoral condyle and the medial aspect and and is a little bit extending about a 1 x 2 cm but cartilage was intact. ACL PCL were present within the notch. The lateral meniscus was intact and stable probing as well. She did have a slightly different variant where she had them the posterior horn of the lateral masses actually came and inserted actually right next to the ACL but on the tibial side. This might allow for a low bit more movement of the lateral meniscus however her lateral femoral condyle lateral tibial plateau were all intact and stable probing and there were no tears or instability of the meniscus. We again performed extensive synovectomy as she has more of a stenotic synovitis in the anterior lateral aspect as well. There are no loose bodies in the anterior medial anterior lateral recesses. We then irrigated the knee with copious muscle sterile saline. Portals were closed with interrupted 4-0 nylon stitches. Injected 8 cc bupivacaine 2 cc Kenalog through the cannula. Sterile dressings were applied. It was deflated. Patient taught procedure well no complication transfer recovery room in stable condition Postoperative note Weight-bear as tolerated Call increased with increased pain Follow-up in 2 weeks Ice elevate ankle pumps ORQUIDEA stockings This was all discussed with Pola disclaimer 11/06/2025 <Electronically signed by Romi Hamm DO> Date Romi Hamm DO CC: Dr. Romi Hamm DO; Dr. Cecy Alarcon DO Signed Cecy Alarcon DO Work Phone: Start: 11-04-2020 End: 11-04-2020 Discharge Instruction Comments: See Note; NOTES: [facility] Medical Records Department [address] [place] [address] Instructions for Home/Discharge Instructions 11/04/20 0835 MR#: [id number] Acct: [id number] Name: NOHELIACIRILO TERRIE Rep #: [id number] : 1965 55 From: Romi Hamm DO PCP: Dr. Cecy Alarcon, Status:[facility] [place] Discharge Diet: No Restrictions - wbat operative limb, remove dressing in 4 days and apply bandaids to incision sites, orquidea stockings for one week, follow up in 2 [address]t or sooner if issues arise, call with concerns; elevate/ice/ankle pumps Discharge Activity: May Not Drive May shower in (days): 1 Ice area for (Minutes): 20 - Every hour while awake. Weight Bearing Status: Weight bearing as tolerated Keep extremity elevated above heart level: Operative Extremity Call your doctor if your incision/area has: Continuous Slow Oozing, Sudden Increased Bleeding, Increased Pain/ Swelling, Increased Redness, Foul Smelling Discharge Call your doctor if you observe: Fever of 101 or Higher, Coldness, Increased Pain, Numbness or Tingling, Change in Color, Calf discomfort Allergies/Adverse Reactions: Allergies No Known Allergies Allergy (Verified 10/28/20 10:19) Medications to take at Discharge atorvastatin 20 mg tablet 20 mg PO QDAY #90 tab 06/01/20 Loratadine [Claritin] 10 mg PO DAILY 12/20/19 insulin lispro 200 unit/mL (3 mL) subcutaneous pen 15 unit SUBCUT TID #9 ml 01/21/20 insulin degludec 100 unit/mL (3 mL) subcutaneous pen 26 unit SC DAILY ml 03/17/20 lisinopril 20 mg tablet 20 mg PO QDAY #90 tab 03/17/20 levothyroxine 75 mcg tablet 75 mcg PO DAILY #90 tab 06/29/20 cholecalciferol (vitamin D3) 25 mcg (1,000 unit) capsule 25 mcg PO DAILY 09/04/20 Hydrocodone Bitart/Apap 5-325 [[place] 5MG-325MG] 1 - 2 tablet PO Q6H PRN PRN 5 Days #40 tab 11/04/20 Ondansetron [Zofran] 8 mg PO Q8H PRN PRN #20 tab 11/04/20 The following prescriptions were given: Hydrocodone Bitart/Apap 5-325 [[place] 5MG-325MG] 1 - 2 tablet PO Q6H PRN PRN 5 Days #40 tab PRN Reason: Pain Transmission Status: Sent to [facility] Ondansetron [Zofran] 8 mg PO Q8H PRN PRN #20 tab PRN Reason: Nausea Transmission Status: Sent to [facility] Primary Care Physician: Cecy Alarcon DO [Primary Care Provider] - Test Results: Test results from this visit will be discussed in further detail at your follow-up appointment, if applicable. Please Follow Up With: Romi Hamm DO - [phone] 11/04/20 0836 <Electronically signed by Romi Hamm DO> Date Romi Hamm DO CC: Dr. Cecy Alarcon DO Signed Cecy Alarcon DO Work Phone: Start: 11-04-2020 End: 11-04-2020 History and Physical Exam Comments: See Note; NOTES: [facility] Medical Records Department [address] [place] [address] History and Physical 11/04/20 0700 MR#: [id number] Acct: [id number] Name: CIRILO CEBALLOS Rep #: [id number] : 1965 55 From: Romi Hamm DO PCP: Dr. Cecy Alarcon DO Status:REG [facility] Location: [place] [address] I have re-examined the patient. There are no clinical changes since date of exam. Intake Intake Visit Reasons: RIGHT KNEE Chief Complaint: Diabetes Allergies No Known Allergies Allergy (Verified 09/04/20 10:48) [facility] Medical History (Updated 08/17/20 @ 18:[address] Remberto Lubin MD) Diabetes type 1, controlled (Acute) Hyperlipidemia (Acute) Hypothyroidism (Acute) Knee pain (Acute) Thyroid nodule (Acute) HTN (hypertension) (Chronic) Surgical History H/O colonoscopy (Acute) H/O lumpectomy (Acute) H/O: (Acute) History of (Acute) History of carpal tunnel release (Acute) History of carpal tunnel release of both wrists (Acute) History of lumpectomy of right breast (Acute) Family History Mother Diabetes Bleeding disorder High cholesterol Cancer Heart disease Hypertension Melanoma Father Alcoholism Sister Colon cancer Diabetes Brother Diabetes Social History (Updated 10/27/20 @ 16:[address] Romi Hamm DO) Smoking Status: Never smoker second hand exposure: No alcohol intake: current substance use type: does not use HPI RIGHT KNEE: Surgical H P: Yes Details: Parts of this documentation were recorded by a scribe, this documentation accurately reflects the service provided and the decisions made by me, Dr. Romi Hamm, 10/20/20 1320. CIRILO CEBALLOS is a 55 year old F here today for F/U on right knee after having MRI completed. SHe is here to review the MRI today. Continues to have right anterior lateral knee pain and pain just below the patella. Does have painful mechanical knee pain. Does feel like her knee is unstable at times. She had a right knee aspiration in 08/2020. ROS Musc Reports system reviewed and no additional complaints, except as docu Skin/Breast Reports system reviewed and no additional complaints, except as docu, Denies dry skin, Denies redness, Denies lesions, Denies new lesions, Denies non-healing lesions, Denies itching, Denies rash, Denies skin ulcer, Denies sores, Denies wounds Ortho Exam General General: Yes no acute distress Neurologic: Yes alert, Yes oriented x3 Psychologic: Yes reasonable and appropriate Right Knee Skin/Wound: No erythema, No ecchymosis, Yes swelling Homans Sign: No Knee ROM: Yes ROM-Extension -20 to 0, Yes ROM-Flexion 0-140 Examination: No Med jt line tenderness, Yes Lat jt line tenderness, Yes Kely's Test, No TTP Pes Anserine Stability: NML: Anterior Drawer, NML: Posterior Drawer, NML: Valgus 30, NML: Varus 30 Patella Grind: No Assessment Plan Problems 1. Pain in lateral portion of right knee M25.561 2. Tear of medial meniscus of right knee, unspecified tear type, unspecified whether old or current tear, subsequent encounter S83.670H Plan Personally reviewed patients MRI of the right knee. Patient educated that she may have a small meniscus tear which was not show on MRI and she has a recurrent medial meniscus tear. Treatment op tions are bracing or steroid injection or right knee scope for meniscectomy. Reviewed the pre- operative plans with the patient. Risks and benefits of the procedure were fully explained, including but not limited to infection, neurovascular injury, continued pain, arthritis, stiffness, need for further surgery, re-injury, DVT, PE, general risks of anesthesia, and loss of limb or life. The patient understands all the risks and does wish to proceed with written consent for right knee arthroscopy lateral and medial meniscectomy, surgery as indicated. Follow up 2 weeks post op or sooner if pain, swelling, numbness or associated symptoms, or concerns develop. All questions answered. Patient in agreement of plan. Coding Level of Care Code Off vis,est,level 4 Diagnoses Pain in lateral portion of right knee M25.561 Tear of medial meniscus of right knee, unspecified tear type, unspecified whether old or current tear, subsequent encounter S83.894D ?Encounter type: subsequent encounter ?Meniscus tear of knee type: unspecified type ?Tear current or old: unspecified COVID (Procedure Consent) Procedure Criteria Procedure Criteria: Yes Elective The surgeon/proceduralist and patient have discussed in detail the risk of exposure to and/or potential harm posed by the COVID-19 virus with having a surgery/procedure at this time versus the risk of??? delaying the surgery/procedure. It is not possible to know either the risk of delaying the surgery or procedure or chance of getting an infection with perfect accuracy, but a joint decision was made between the patient and the surgeon/proceduralist ???to proceed at this time with the scheduled surgery/procedure as indicated on the consent form. 11/04/20746 <Electronically signed by Romi Kathleen O> Date: Time: Romi Hamm DO CC: Dr. Romi Hamm DO; Dr. Cecy Alarcon DO Date Dictated: 11/04/20699 Date Transcribed: 11/03/20716 Supervisor Die Casting: Signed Cecy Alarcon DO Work Phone: Start: 10-20-2020 End: 10-27-2020 Orthopedic Visit Report Comments: See Note; NOTES: [facility] [address] [place] [address] OFFICE VISIT Date of Service: 10/20/20 MR#: [id number] Acct: [id number] Name: CIRILO CEBALLOS Rep #: [id number] : 1965 Provider: Dr. Romi kelsey DO Age/Sex: 55/F Location: [facility] [place].[facility] [place] Status: Signed Intake Intake Visit Reasons: RIGHT KNEE Chief Complaint: Diabetes Allergies No Known Allergies Allergy (Verified 09/04/20 10:48) [facility] Medical History (Updated 08/17/20 @ 18:[address] Remberto Lubin MD) Diabetes type 1, controlled (Acute) Hyperlipidemia (Acute) Hypothyroidism (Acute) Knee pain (Acute) Thyroid nodule (Acute) HTN (hypertension) (Chronic) Surgical History H/O colonoscopy (Acute) H/O lumpectomy (Acute) H/O: (Acute) History of (Acute) History of carpal tunnel release (Acute) History of carpal tunnel release of both wrists (Acute) History of lumpectomy of right breast (Acute) Family History Mother Diabetes Bleeding disorder High cholesterol Cancer Heart disease Hypertension Melanoma Father Alcoholism Sister Colon cancer Diabetes Brother Diabetes Social History (Updated 10/27/20 @ 16:[address] Romi Hamm DO) Smoking Status: Never smoker second hand exposure: No alcohol intake: current substance use type: does not use HPI RIGHT KNEE: Surgical H P: Yes Details: Parts of this documentation were recorded by a scribe, this documentation accurately reflects the service provided and the decisions made by me, Dr. Romi Hamm DO 10/20/20 5610. CIRILO CEBALLOS is a 55 year old F here today for F/U on right knee after having MRI completed. SHe is here to review the MRI today. Continues to have right anterior lateral knee pain and pain just below the patella. Does have painful mechanical knee pain. Does feel like her knee is unstable at times. She had a right knee aspiration in 08/2020. ROS Musc Reports system reviewed and no additional complaints, except as docu Skin/Breast Reports system reviewed and no additional complaints, except as docu, Denies dry skin, Denies redness, Denies lesions, Denies new lesions, Denies non-healing lesions, Denies itching, Denies rash, Denies skin ulcer, Denies sores, Denies wounds Ortho Exam General General: Yes no acute distress Neurologic: Yes alert, Yes oriented x3 Psychologic: Yes reasonable and appropriate Right Knee Skin/Wound: No erythema, No ecchymosis, Yes swelling Homans Sign: No Knee ROM: Yes ROM-Extension -20 to 0, Yes ROM-Flexion 0-140 Examination: No Med jt line tenderness, Yes Lat jt line tenderness, Yes Kely's Test, No TTP Pes Anserine Stability: NML: Anterior Drawer, NML: Posterior Drawer, NML: Valgus 30, NML: Varus 30 Patella Grind: No Assessment Plan Problems 1. Pain in lateral portion of right knee M25.561 2. Tear of medial meniscus of right knee, unspecified tear type, unspecified whether old or current tear, subsequent encounter S83.241D Plan Personally reviewed patients MRI of the right knee. Patient educated that she may have a small meniscus tear which was not show on MRI and she has a recurrent medial meniscus tear. Treatment options are bracing or steroid injection or right knee scope for meniscectomy. Reviewed the pre- operative plans with the patient. Risks and benefits of the procedure were fully explained, including but not limited to infection, neurovascular injury, continued pain, arthritis, stiffness, need for further surgery, re-injury, DVT, PE, general risks of anesthesia, and loss of limb or life. The patient understands all the risks and does wish to proceed with written consent for right knee arthroscopy lateral and medial meniscectomy, surgery as indicated. Follow up 2 weeks post op or sooner if pain, swelling, numbness or associated symptoms, or concerns develop. All questions answered. Patient in agreement of plan. Coding Level of Care Code Off vis,est,level 4 Diagnoses Pain in lateral portion of right knee M25.561 Tear of medial meniscus of right knee, unspecified tear type, unspecified whether old or current tear, subsequent encounter S83.364D ?Encounter type: subsequent encounter ?Meniscus tear of knee type: unspecified type ?Tear current or old: unspecified COVID (Procedure Consent) Procedure Criteria Procedure Criteria: Yes Elective The surgeon/proceduralist and patient have discussed in detail the risk of exposure to and/or potential harm posed by the COVID-19 virus with having a surgery/procedure at this time versus the risk of??? delaying the surgery/procedure. It is not possible to know either the risk of delaying the surgery or procedure or chance of getting an infection with perfect accuracy, but a joint decision was made between the patient and the surgeon/proceduralist ???to proceed at this time with the scheduled surgery/procedure as indicated on the consent form. 10/27/20 1603 <Electronically signed by Romi Hamm DO> Date Romi Hamm DO Cosigner Signature: Date (if applicable) CC: Cecy Alarcon DO Work Phone: Start: 10-16-2020 End: 10-16-2020 Lower Ext Joint Only (Routine) Comments: See Note; NOTES: [facility] Imaging Services [address] [place] [address] Lower Ext Joint Only (Routine) MR#: [id number] Acct: [id number] Name: NOHELIACIRILO ANN Rep #: [id number] : 1965 F 55 From: Enrico Kathleen PCP: Dr. Cecy Alarcon, Status: REG CLI Study: Lower Ext Joint Only (Routine) Date of Exam: 0 10/16/20 Exam# [id number] Ordering Dr: Romi Hamm STUDY: MRI RIGHT KNEE REASON FOR EXAM: Lateral knee pain since last November, right knee surgery in December. TECHNIQUE: Standardized fat and water weighted pulse sequences were obtained in all 3 orthogonal planes. COMPARISON: MRI images 12/03/2019. FINDINGS: There are postoperative changes of the medial meniscus. There is a recurrent medial meniscal tear with a displaced flap superior to the root of the posterior horn of the medial meniscus (proton-density sagittal images 24, 25; T2 coronal images 11, 12). There is mild arthrosis of the medial femorotibial compartment with mild partial-thickness chondral loss of the medial femoral condyle (T2 sagittal image 17). Normal medial femoral condyle and tibial plateau. Normal medial collateral ligamentous complex (MCL). Normal distal semimembranosus, gracilis and semitendinosus tendons. Normal lateral meniscus. Normal hyaline cartilage of the lateral femorotibial compartment. Normal lateral femoral condyle and tibial plateau. Normal proximal tibiofibular articulation. Normal lateral collateral (fibular) ligament. Normal popliteus tendon. Normal biceps femoris tendon. Normal anterior cruciate ligament (ACL). Normal posterior cruciate ligament (PCL). Normal congruent patellofemoral articulation. Normal hyaline cartilage of the patellofemoral compartment. Normal medial and lateral patellar retinaculum. Normal quadriceps tendon. Normal patellar tendon. There is postoperative scarring in Hoffa''s fat pad. There is a aljjr-tr-gblkbptx sized joint effusion. The soft tissues are unremarkable. The otherwise visualized osseous structures are unremarkable. MRI/Lower Ext Joint Only (Routine) IMPRESSION: Recurrent medial meniscal tear. Mild arthrosis of the medial femorotibial compartment. Joint effusion. Electronically Signed: Enrico Mar MD at 8:41 EDT Tel , Service support , CC: Dr. Romi Hamm DO; Dr. Cecy Alarcon DO Supervisor Die Casting: Signed Cecy Alarcon DO Work Phone: Start: 10-06-2020 End: 10-07-2020 Orthopedic Visit Report Comments: See Note; NOTES: [facility] [address] [place] [address] OFFICE VISIT Date of Service: 10/06/20 MR#: [id number] Acct: [id number] Name: CIRILO CEBALLOS TERRIE Rep #: [id number] : 1965 Provider: Dr. Romi kelsey DO Age/Sex: 55/F Location: [facility] [place] [place] Status: Signed Intake Intake Visit Reasons: right knee Chief Complaint: Diabetes Allergies No Known Allergies Allergy (Verified 09/04/20 10:48) [facility] Medical History (Updated 08/17/20 @ 18:[address] Remberto Lubin MD) Diabetes type 1, controlled (Acute) Hyperlipidemia (Acute) Hypothyroidism (Acute) Knee pain (Acute) Thyroid nodule (Acute) HTN (hypertension) (Chronic) Surgical History H/O colonoscopy (Acute) H/O lumpectomy (Acute) H/O: (Acute) History of (Acute) History of carpal tunnel release (Acute) History of carpal tunnel release of both wrists (Acute) History of lumpectomy of right breast (Acute) Family History Mother Diabetes Bleeding disorder High cholesterol Cancer Heart disease Hypertension Melanoma Father Alcoholism Sister Colon cancer Diabetes Brother Diabetes Social History (Updated 10/07/20 @ 09:[address] Romi Hamm, ) Smoking Status: Never smoker second hand exposure: No alcohol intake: current substance use type: does not use HPI right knee: Details: Parts of this documentation were recorded by a scribe, this documentation accurately reflects the service provided and the decisions made by me, Dr. Romi Hamm, 10/06/20 1229. CIRILO CEBALLOS is a 55 year old F here today for f/u of her right knee pain and swelling. Last month she saw us and we did an aspiration, but not an injection because it 'messes with her sugars.' She states that she has increased swelling since we saw her last and because of this her knee feels very tight. She states that the meloxicam did not help at all, but she thinks ibuprofen and Tylenol help her more. She takes ibuprofen and Tylenol as needed. She denies using ice/heat for the pain. She states she has occasional pain in her knee, mostly with activity. She notes that the pain is all on the lateral side of her knee. Has had past injections and surgery on the right knee to repair her medial meniscus. She has been trying a knee sleeve and states that it helps, but that after a while wearing it her ankle swells. Ortho Exam General General: Yes no acute distress Neurologic: Yes alert, Yes oriented x3 Psychologic: Yes reasonable and appropriate Right Knee Skin/Wound: No erythema, No ecchymosis, Yes swelling Homans Sign: No Knee ROM: Yes ROM-Extension -20 to 0, Yes ROM-Flexion 0-140 Examination: No Med jt line tenderness, Yes Lat jt line tenderness, Yes Kely's Test, No TTP Pes Anserine Stability: NML: Anterior Drawer, NML: Posterior Drawer, NML: Valgus 30, NML: Varus 30 Patella Grind: No Assessment Plan Problems 1. Mechanical pain of right knee M25.561 2. Pain in lateral portion of right knee M25.561 Plan - Dr. Romi Hamm DO Obtained X-rays of patient's right knee. Personally reviewed x-rays. There is no obvious fracture, dislocation, or lucency noted. Patient educated that since she is having lateral sided knee pain at this time and she is having popping and clicking of the knee. She has had injections and PT and nothing has been effective therefore we will order an MRI of the right knee to further eval the knee. Follow up after MRI or sooner if pain, swelling, numbness or associated symptoms, or concerns develop. All questions answered. Patient in agreement of plan. Orders Orders: Lower Ext Joint Only (Routine) 10/06/20 M25.561 Coding Level of Care Code No Charge Diagnoses Mechanical pain of right knee M25.561 Pain in lateral portion of right knee M25.561 10/07/20 0926 <Electronically signed by Romi Hamm DO> Date Roim Hamm DO 10/07/20 1204<Electronically signed by Kenyetta TA> Cosigner Signature: Date (if applicable) Kenyetta Baez CC: Cecy Alarcon DO Work Phone: Start: 09-04-2020 End: 09-04-2020 Orthopedic Visit Report Comments: See Note; NOTES: [facility] [address] [place] [address] OFFICE VISIT Date of Service: 09/04/20 MR#: [id number] Acct: [id number] Name: CIRILO CEBALLOS Rep #: [id number] : 1965 Provider: KEYON Ling Age/Sex: 55/F Location: [facility] Status: Signed Intake Intake Visit Reasons: Right knee Accompanied by: Self Is patient in pain?: No Allergies No Known Allergies Allergy (Verified 09/04/20 10:48) Medications atorvastatin 20 mg tablet 20 mg PO QDAY #90 tab 12/16/19 [Rx Confirmed 09/04/20] Loratadine [Claritin] 10 mg PO DAILY 12/20/19 [History Confirmed 09/04/20] insulin lispro 200 unit/mL (3 mL) subcutaneous pen 15 unit SUBCUT TID #9 ml 01/21/20 [Rx Confirmed 09/04/20] flash glucose sensor See Rx Instructions .ROUTE .MEDSUPPLY #2 ea 03/17/20 [Rx Confirmed 09/04/20] insulin degludec 100 unit/mL (3 mL) subcutaneous pen 26 unit SC DAILY ml 03/17/20 [History Confirmed 09/04/20] lisinopril 20 mg tablet 20 mg PO QDAY #90 tab 03/17/20 [Rx Confirmed 09/04/20] levothyroxine 75 mcg tablet 75 mcg PO DAILY #90 tab 06/29/20 [Rx Confirmed 09/04/20] cholecalciferol (vitamin D3) 25 mcg (1,000 unit) capsule 25 mcg PO DAILY 09/04/20 [History Confirmed 09/04/20] meloxicam 15 mg tablet 15 mg PO DAILY #30 tab 09/04/20 [Rx Confirmed 09/04/20] [facility] Medical History (Updated 08/17/20 @ 18:[address] Remberto Lubin MD) Diabetes type 1, controlled (Acute) Hyperlipidemia (Acute) Hypothyroidism (Acute) Knee pain (Acute) Thyroid nodule (Acute) HTN (hypertension) (Chronic) Surgical History H/O colonoscopy (Acute) H/O lumpectomy (Acute) H/O: (Acute) History of (Acute) History of carpal tunnel release (Acute) History of carpal tunnel release of both wrists (Acute) History of lumpectomy of right breast (Acute) Family History Mother Diabetes Bleeding disorder High cholesterol Cancer Heart disease Hypertension Melanoma Father Alcoholism Sister Colon cancer Diabetes Brother Diabetes Social History (Updated 09/04/20 @ 12:47 by Amy TA, KEYON) Smoking Status: Never smoker second hand exposure: No alcohol intake: current substance use type: does not use HPI Right knee: Details: Parts of this documentation were recorded by a scribe, this documentation accurately reflects the service provided and the decisions made by me, KEYON Stephens 09/04/20 1043. ICRILO CEBALLOS is a 55 year old F here today for her right knee, c/o fluid on it. Patient states she has a lump that is squishy on her right knee. Patient has had her knee aspirated in the past by Dr. Hamm. Lump has been present for approx one week. Lump does not cause pain. Knee feels tight. Denies any swelling, and denies changes in her lump. Denies any knee pain. Last right knee aspiration and injection: 04/28/2020. Ortho Exam Right Knee Skin/Wound: No wound care, No erythema, No ecchymosis, Yes swelling Homans Sign: No 1+: Effusion Knee ROM: Yes ROM-Extension -20 to 0, Yes ROM-Flexion 0-140 Examination: No Med jt line tenderness, No Lat jt line tenderness, No Pain with flexion (Some minor tightness), No Pain with extention Stability: NML: Valgus 30, NML: Varus 30 KNEE: Inspection of the right knee shows no acute abnormalities. Minor evidence of effusion without any erythema, ecchymosis/bruising, or other skin changes. Patient has good range of motion strength against resistance. She has soft compartments throughout the extremity, no calf tenderness, and normal sensation throughout. Assessment Plan Problems 1. Effusion, right knee M25.461 Plan Patient presents the office today with complaint of right knee swelling. Patient had surgery back in April and has had some minor recurrence of fluid on the knee. She states this has not been painful but just tends to get tight and she knows that it is a little swollen. Swelling does wax and wane a little bit. Again there is some minor evidence of effusion only today. At this time we discussed treatment and patient would like to have aspiration. She does not want an injection as this really plays havoc on her sugars. Risks and benefits of the injection/aspiration were discussed with patient and consent was signed in office today. Aspiration was then performed under normal sterile fashion with patient lying supine in leg supported underneath the foot/ankle. 15 cc of straw-colored normal serous fluid was removed from the joint. Patient tolerated procedure with minimal discomfort and no complications were observed. I would like patient to ice the area and we are going to start an anti-inflammatory to see if we can keep this from recurring. Would also consider trying a knee sleeve for some compression especially with activity also to aid with the fluid. Monitor notify of any erythema, increased pain, increased welling, warmth, or any other concerns or complaints. This note was generated with IP Ghoster dictation software. It may contain incorrect words, spelling, and punctuation that were not noted in checking the note before signing. Orders Orders: Ortho Aspiration Today M25.462 Medications New: meloxicam 15 mg PO DAILY 30 tabs 0RF Coding Level of Care Code Attention Unit Controller Diagnoses Effusion, right knee M25.461 Comment CPT???54570???injection/asp iration into a major joint/bursa 09/04/20 7536 <Electronically signed by Amy TA> Date Amy TA Cosigner Signature: Date (if applicable) CC: Cecy Alarcon DO Work Phone: Start: 08-17-2020 End: 02-01-2021 Endocrinology Visit Report Comments: See Note; NOTES: [facility] [address] [place], [place] [address] OFFICE VISIT Date of Service: 08/17/20 MR#: [id number] Acct: [id number] Name: CIRILO CEBALLOS Rep #: [id number] : 1965 Provider: Teressa Duron Age/Sex: 55/F Location: [facility] Status: Signed Intake Vital Signs 08/17/20 Height 5 ft 2 in 08/17/20 Weight: 159 lb 08/17/20 BP 132/88 H 08/17/20 Blood Pressure Location Rt brachial 08/17/20 Position Sitting 08/17/20 Respiration 14 08/17/20 Pulse 81 08/17/20 Pulse Source Monitor 08/17/20 Temp 98.2 F 08/17/20 Temp Source Temporal 08/17/20 Pulse Oximetry (%) 98 08/17/20 Oxygen Delivery Method room air Intake Visit Reasons: 5 M FU Chief Complaint: Diabetes 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: No Accompanied by: self Is patient in pain?: No Allergies No Known Allergies Allergy (Verified 08/17/20 11:01) Medications atorvastatin 20 mg tablet 20 mg PO QDAY #90 tab 12/16/19 [Rx Confirmed 08/17/20] Loratadine [Claritin] 10 mg PO DAILY 12/20/19 [History Confirmed 08/17/20] insulin lispro 200 unit/mL (3 mL) subcutaneous pen 15 unit SUBCUT TID #9 ml 01/21/20 [Rx Confirmed 08/17/20] flash glucose sensor See Rx Instructions .ROUTE .MEDSUPPLY #2 ea 03/17/20 [Rx Confirmed 08/17/20] insulin degludec 100 unit/mL (3 mL) subcutaneous pen 26 unit SC DAILY ml 03/17/20 [History Confirmed 08/17/20] lisinopril 20 mg tablet 20 mg PO QDAY #90 tab 03/17/20 [Rx Confirmed 08/17/20] levothyroxine 75 mcg tablet 75 mcg PO DAILY #90 tab 06/29/20 [Rx Confirmed 08/17/20] [facility] Medical History Diabetes type 1, controlled (Acute) Hyperlipidemia (Acute) Hypothyroidism (Acute) Knee pain (Acute) Thyroid nodule (Acute) HTN (hypertension) (Chronic) Surgical History H/O colonoscopy (Acute) H/O lumpectomy (Acute) H/O: (Acute) History of (Acute) History of carpal tunnel release (Acute) History of carpal tunnel release of both wrists (Acute) History of lumpectomy of right breast (Acute) Family History Mother Diabetes Bleeding disorder High cholesterol Cancer Heart disease Hypertension Melanoma Father Alcoholism Sister Colon cancer Diabetes Brother Diabetes Social History (Updated 08/17/20 @ 18:[address] Remberto Lubin MD) Smoking Status: Never smoker second hand exposure: No alcohol intake: current substance use type: does not use HPI HPI Chief Complaint: Diabetes Details: CIRILO CEBALLOS, is a 55 F who presents to the office today for follow up. She is using basal bolus and CGM (Antonieta 2) She is doing a great job. A1C is down further to 7.1%. 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 She is due for labs. ROS Const Constitutional: No anorexia, body ache, chills, excessive sweating, fatigue, fever(s), decreased energy, malaise, night sweats, snoring, weight change, sleep problems, abnormal sleep pattern, change in appetite or other Eyes Eyes: No blurry vision, change in vision, double vision, discharge, dry eyes, bulging eyes, floaters, eye pain, light sensitivity, spots in vision, tunnel vision or other ENT ENT: No ear pain, ear discharge, ear pressure, hearing loss, tinnitus, dizziness/vertigo, balance problems, nosebleed/epistaxis, nasal congestion, nasal obstruction, nose pain, sinus pressure, sinus pain, nasal discharge, post nasal drip, facial pain, dental pain, dry mouth, bad breath, hoarseness, lip swelling, mouth lesions, mouth pain, neck pain, sore throat, tongue swelling, throat swelling or other Cardio Cardiology: No chest pain at rest, chest pain with exertion, leg pain with exertion, excessive sweating, shortness of breath, dyspnea on exertion, generalized swelling, irregular heart rhythm, lightheadedness, orthopnea, radiating jaw, neck or arm pain, fast heart rate, slow heart rate, palpitations or other Musc Musculoskeletal: No joint pain, back pain, deformity, joint swelling, limited range of motion, loss of height, muscle cramps, muscle weakness, decreased muscle mass, body aches, neck pain, radiating pain into limb, stiffness, Arthritis, leg pain with exertion, sciatica, leg pain at night or other Neuro Neurology: No behavioral changes, confusion or memory loss Psych Psychiatric: No abnormal sleep pattern, No lack of enjoyment, No anxiety, No behavioral changes, No change in appetite, No confusion, No depression, No difficulty concentrating, No hopelessness, No irritability, No memory loss, No mood swings, No panic attacks, No paranoia, No Thoughts of harming yourself/Others, No hallucinations, No other Ciaran/Lymp Hematologic/Lymphatic: No easy bleeding, easy bruising, enlarged lymph nodes or other Resp Respiratory: No cough, change in phlegm color, chest congestion, excessive phlegm production, hemoptysis, pain on inspiration, shortness of breath, pain with cough, snoring, stridor, wheezing or other Genitourinary-Female: No difficulty urinating, burning [...] dryness, vaginal odor, Vaginal Itching or other Skin Skin: No acne, hair loss, change in hair, nail changes, boil, change in skin color, dry skin, redness, excessive hair growth, yellowing of the skin, lesions, itching, rash, skin pain, skin ulcer, sores, skin swelling, wounds or other Breast Breast: No other Endo Endocrine: No change in body appearance, cold intolerance, excessive sweating, fatigue, flushing, heat intolerance, increased thirst/drinking, increased hunger, increased urination or other Aller/Imm Allergy/Immunologic: No food intolerance, itchy eyes, lip swelling, seasonal allergy symptoms, throat swelling, tongue swelling, hives, wheezing or other Exam Const General: cooperative, healthy appearing, comfortable, no acute distress, well developed, not cushingoid Nutritional Appearance: well nourished Orientation: alert, awake, oriented x3 HENMT Head: normal to inspection Ears: hearing grossly normal bilaterally Nose: external nose normal Mouth: oral mucosae normal Eyes General: appearance normal, both eyes and all related structures Alignment and Position: alignment normal Periorbital: periorbital findings normal Eyelids: eyelids normal Conjunctivae: conjunctivae normal Neck Neck: normal visual inspection Neck mass: No Thyroid: thyroid normal Carotids: no bruits Lymphatic: no lymphadenopathy noted Chest Chest palpation inspection: normal inspection of the chest Resp Effort Inspection: normal respiratory effort, able to speak in complete sentences, symmetric chest movement, no audible wheezes, no cough Auscultation: Bilateral: Clear to Auscultation Cardio Rate: regular rate Rhythm: regular rhythm Pulses: posterior tibial pulses present GI Inspection: normal to inspection Auscultation: normal bowel sounds Palpation: soft, no hepatosplenomegaly Musc Musculoskeletal: No muscle weakness Skin General: no rashes or lesions noted Neuro General: alert, awake, oriented x3 Cranial Nerves: CN's II-XI intact bilaterally Cognition: normal cognition Speech: speech normal Gait: normal gait Motor: muscle tone normal throughout Extrem General: no edema Psych Appearance: grossly normal Mental Status: mental status grossly normal Mood: congruent mood Affect: normal affect Speech and Movement: speech and movement normal Attitude: cooperative Thought Process: normal Thought Content: normal Judgment: judgment good Results POC A1C POC A1C 7.1 % Last Edit by Jana Ross on 08/17/20 11:22 Assessment Plan 1. Type 1 diabetes mellitus with hyperglycemia E10.65 Plan Diabetes education provided. Insulin pattern management performed. I reviewed her CGM. Discussed option of insulin pump therapy to address her Moraima phenomenon. Labs ordered. I will interpret the lab and communicate the results to the patient. 2. Acquired hypothyroidism E03.9 Ultra sound notes 8mm nodule and 2mm calcification. Pt not feeling any difficulty with swallowing at todays visit Plan Take levothyroxine on an empty stomach with water at least four hours after eating. Then wait 30-60 minutes before consuming any other food or beverage, especially coffee. Separate levothyroxine from vitamins by at least 4 hours. Stop taking any biotin supplement 4 days prior to having labs drawn. Orders Orders: Comprehensive Metabolic Profil Today Lipid Profile Today T4 Free Direct Today Thyroid Stim Hormone (TSH) Today Microalb:Creat Ratio,Random UR Today 3. Mixed hyperlipidemia E78.2 Plan Continue statin. Orders Orders: Comprehensive Metabolic Profil Today Lipid Profile Today T4 Free Direct Today Thyroid Stim Hormone (TSH) Today Microalb:Creat Ratio,Random UR Today 4. Overweight (BMI 25.0-29.9) E66.3 Plan Nutritional counseling provided, avoid flour, sugar, and artificial sweeteners. I have spent [35] minutes today reviewing labs, records and history. Time includes coordinating care, interpretation of tests, discussion with patient's other health care providers via telephone. This also includes time I spent with the patient for exam, treatment plan and education as well as documenting clinical information. Plan Detail Other Orders Orders: POC A1C Today E10.9 Comprehensive Metabolic Profil Today E11.9 Lipid Profile Today E11.9 T4 Free Direct Today E11.9 Thyroid Stim Hormone (TSH) Today E11.9 Microalb:Creat Ratio,Random UR Today E11.9 Coding Level of Care Code Off vis,est,level 4 Diagnoses Type 1 diabetes mellitus with hyperglycemia E10.65 ?Diabetes mellitus type: type 1 ?Diabetes mellitus complication status: with hyperglycemia Acquired hypothyroidism E03.9 Mixed hyperlipidemia E78.2 Overweight (BMI 25.0-29.9) E66.3 08/17/20 1801 <Electronically signed by Remberto Lubin MD> Date Remberto Lubin MD Cosigner Signature: Date (if applicable) CC: Dr. Cecy Alarcon, DO Cecy Alarcon DO Work Phone: Start: 07-15-2020 End: 12-30-2020 PT D/C of Non Returning Pt (1) Comments: See Note; NOTES: [facility] [address] [place] [address] / REHABILITATION SERVICES DISCHARGE SUMMARY MR#: [id number] Acct: [id number] Name: CIRILO CEBALLOS Rep #: [id number] : 1965 55 From: Raji Rubin PT, Cert. MD Baker, OCS Referring Dr.: Dr. Romi Hamm, DO Status: REG RCR Insurance: [facility] SELF PAY INSURANCE CIRILO CEBALLOS was seen in my office for initial evaluation on 01/16/20. The following Plan of Care was established for this patient: Initial Frequency: 2x /Week Initial Duration: 2 Months Patient/Client Instruction: Educate patient on: Condition, Plan of Care For the Purpose of:: To decrease swelling/inflammation, To increase ROM, To improve muscle performance and motor function, To improve ability to perform ADL's, To increase tolerance to activity/condition/position , To improve performance and independence with ADL's, To improve ability of physical actions for home/community/work/leisure , To improve gait and locomotor functions, To improve health of tissue, To decrease soft tissue restriction, To increase flexibility/ROM, To assume or resume ADL's, To improve ability to perform tasks related to life management Therapeutic Exercise to Include: Strength training, Flexibilty training, Gait and locomotor training, Passive ROM, Active ROM For the Purpose of:: To decrease pain, To increase ROM, To improve muscle performance and motor function, To improve ability to perform ADL's, To increase tolerance to activity/condition/position , To improve ability of physical actions for home/community/work/leisure , To improve gait and locomotor functions, To improve health of tissue, To decrease soft tissue restriction, To increase flexibility/ROM, To improve safety with gait, To improve ability to perform tasks related to life management, To improve tolerance to ADL's TENS: Yes IF ES: Yes Cryotherapy (ice pack, ice massage): Yes Thermo therapy (hot pack): Yes For the Purpose of:: To decrease pain, To decrease swelling/inflammation This patient was last seen in our office . Pertinent comments regarding their Physical therapy will appear below: Patient seen for PT for right knee meniscus repair following protocal ,Doing well d/c At this point I will be discontinuing this patient from physical therapy. I would be happy to see this patient again in the future if found appropriate by the physician. Thank you! Raji Rubin, PT, Cert MDT, OCS <Electronically signed by Raji Rubin PT, Cert. MDT, OCS> 07/15/20 1341 CC: Dr. Romi Hamm DO; Dr. Cecy Alarcon DO ORQUIDEAA Signed Cecy Alarcon DO Work Phone: Start: 05-12-2020 End: 05-12-2020 SCREEN MAMM (CAD) W/ALFONZO BILAT Comments: See Note; NOTES: [facility] Imaging Services [address] [place] [address] SCREEN MAMM (CAD) W/ALFONZO BILAT MR#: [id number] Acct: [id number] Name: CIRILO CEBALLOS TERRIE Rep #: [id number] : 1965 F 55 From: Jorge rider MD PCP: Dr. Cecy Alarcon DO Status: REG CLI Study: SCREEN MAMM (CAD) W/ALFONZO BILAT Date of Exam: Exam# [id number] Ordering Dr: Cecy Alarcon DO MAMMOGRAPHY - BILATERAL SCREENING REASON FOR EXAM: Female, 55 years old. Routine annual screening examination. PERTINENT HISTORY: Non-contributory. TECHNIQUE: Digital bilateral breast alfonzo (3D mammographic acquisition) in the CC and MLO projections. 2-D mediolateral oblique (MLO) and craniocaudad (CC) views of both breasts were obtained. CAD: Full Field Digital Mammography with Computer Added Detection was performed. COMPARISON: Comparison is made with prior examination 02/26/2019. FINDINGS: Breast Composition: The breasts are heterogeneously dense, which may obscure small masses. There are no dominant masses or suspicious calcifications. Stable small benign-appearing bilateral axillary lymph nodes. No other significant abnormalities are identified. There has been no significant change since the prior study. BI/SCREEN MAMM (CAD) W/ALFONZO BILAT IMPRESSION: Stable bilateral screening mammogram. Yearly follow-up mammogram recommended. (A) ASSESSMENT CATEGORY: BIRADS Category 2: Benign. A letter regarding these results will be sent to the patient by the facility within 30 days. Approximately 10% of breast cancers are not detected by mammography. A normal mammogram should not delay biopsy of a clinically suspicious abnormality. [id number] Electronically Signed: Jorge Santizo, at 8:45 EDT , Service support , CC: Dr. Cecy Alarcon DO Supervisor Die Casting: Signed Cecy Alarcon Work Phone: Start: 04-28-2020 End: 04-28-2020 Orthopedic Visit Report Comments: See Note; NOTES: [facility] [address] [place] [address] OFFICE VISIT Date of Service: 04/28/20 MR#: [id number] Acct: [id number] Name: CIRILO CEBALLOS TERRIE Rep #: [id number] : 1965 Provider: Dr. Romi kelsey DO Age/Sex: 55/F Location: [facility] [place].[facility] [place] Status: Signed Intake Intake Visit Reasons: knee Chief Complaint: Diabetes Allergies No Known Allergies Allergy (Verified 03/19/20 13:32) [facility] Medical History Diabetes type 1, controlled (Acute) Hyperlipidemia (Acute) Hypothyroidism (Acute) Knee pain (Acute) Thyroid nodule (Acute) HTN (hypertension) (Chronic) Surgical History H/O colonoscopy (Acute) H/O lumpectomy (Acute) H/O: (Acute) History of (Acute) History of carpal tunnel release (Acute) History of carpal tunnel release of both wrists (Acute) History of lumpectomy of right breast (Acute) Family History Mother Diabetes Bleeding disorder High cholesterol Cancer Heart disease Hypertension Melanoma Father Alcoholism Sister Colon cancer Diabetes Brother Diabetes Social History (Updated 04/28/20 @ 16:[address] Romi Hamm, ) Smoking Status: Never smoker second hand exposure: No alcohol intake: current substance use type: does not use HPI knee: Details: Parts of this documentation were recorded by a scribe, this documentation accurately reflects the service provided and the decisions made by me, Dr. Romi Hamm, 04/28/20 1350. CIRILO CEBALLOS is a 55 year old F here today for post-op Right knee arthroscopy, extensive synovectomy, bucket-handle medial meniscus repair, microfracture notch. DOS: 12/27/2019. Patient has noticed improvement with her knee since surgery. Has c/o possible fluid on the knee. Area was noticed one week ago. Denies pain and discomfort. Denies numbness and tingling. Patient has tried ice packs, with no change. Size has not changed since she first noticed it. ROS Musc Reports system reviewed and no additional complaints, except as docu Skin/Breast Reports system reviewed and no additional complaints, except as docu, Denies dry skin, Denies redness, Denies lesions, Denies new lesions, Denies non-healing lesions, Denies itching, Denies kelsie h, Denies skin ulcer, Denies sores, Denies wounds Ortho Exam Right Knee Date of Surgery: 12/27/19 Contralateral Normal: Yes Homans Sign: No Knee ROM: Yes ROM-Extension -20 to 0, Yes ROM-Flexion 0-140, Yes ROM-Passive Extension -10 to 0, Yes ROM-Passive Flexion 0-140 Patella Grind: Yes Office Procedures Ortho Aspiration Procedure Detail Procedure performed by: Romi Hamm Ortho Injections/Aspirations Yes Knee Right Details: Obtained consent for aspiration. Under sterile conditions, aspirated 30cc's from the patients right knee. The patient tolerated the aspiration well without any noted complications. Patient should call our office if redness develops, pain worsens or if they have any concerns. Kenalog 40 mg/mL suspension for injection (triamcinolone acetonide) 40 mg intra-articular ONCE Injections Yes Knee Right Details: Obtained consent for injection. Under sterile conditions, injected the patients right knee with a 10cc cocktail of 8cc bupivacaine and 2cc kenalog. The patient tolerated the injection well without any noted complication. Patient should call our office if redness develops, pain worsens or if they have any concerns. Office Meds Kenalog Performing Provider: Romi Hamm DO Administered by: Romi Hamm DO on 04/28/20 14:35 Dose Route Admin Location Lot Number Expiration Date NDC Manufactu rer 80 mg intra-articular ABL 4087 04/16/21 7883-0184-18 [facility] Assessment Plan Orders Orders: Ortho Injections Today M25.561 Ortho Aspiration Today Crystals, Body Fluid Today M25.561 Synovial Fluid RBC, WBC Diff Today M25.561 Culture, Body Fluid Today M25.561 GLUCOSE, SYNOVIAL FLUID Today M25.561 PROTEIN, SYNOVIAL FLUID Today M25.561 Coding Level of Care Code Off vis,est,level 3 Additional Codes dietary services manager.knee () dietary services manager.knee () 04/28/20 1633 <Electronically signed by Romi Hamm DO> Date Romi Hamm DO Cosigner Signature: Date (if applicable) CC: Cecy Alarcon Start: 03-19-2020 End: 03-19-2020 Orthopedic Visit Report Comments: See Note; NOTES: [facility] [address] [place] [id number] OFFICE VISIT Date of Service: 03/19/20 MR#: [id number] Acct: [id number] Name: CIRILO CEBALLOS Rep #: [id number] : 1965 Provider: KEYON Ling Age/Sex: 55/F Location: [facility] [place] Status: Signed Intake Intake Visit Reasons: Right knee Chief Complaint: Diabetes Accompanied by: Self Is patient in pain?: No Allergies No Known Allergies Allergy (Verified 03/19/20 13:32) Medications atorvastatin 20 mg tablet 20 mg PO QDAY #90 tab 12/16/19 [Rx Confirmed 03/19/20] Levothyroxine Sodium [Synthroid] 75 mcg PO DAILY 12/20/19 [History Confirmed 03/19/20] Loratadine [Claritin] 10 mg PO DAILY 12/20/19 [History Confirmed 03/19/20] insulin lispro 200 unit/mL (3 mL) subcutaneous pen 15 unit SUBCUT TID #9 ml 01/21/20 [Rx Confirmed 03/19/20] flash glucose sensor See Rx Instructions .ROUTE .MEDSUPPLY #2 ea 03/17/20 [Rx Confirmed 03/19/20] insulin degludec 100 unit/mL (3 mL) subcutaneous pen 26 unit SC DAILY ml 03/17/20 [History Confirmed 03/19/20] lisinopril 20 mg tablet 20 mg PO QDAY #90 tab 03/17/20 [Rx Confirmed 03/19/20] PFSH Social History (Updated 03/19/20 @ 13:44 by KEYON Atkins) Smoking Status: Never smoker second hand exposure: No alcohol intake: current substance use type: does not use HPI Right knee: Details: Parts of this documentation were recorded by a scribe, this documentation accurately reflects the service provided and the decisions made by Amy ovalle PA 03/19/20 1326. CIRILO CEBALLOS is a 55 year old F here today for post op Right knee arthroscopy, extensive synovectomy, bucket-handle medial meniscus repair, microfracture notch. DOS: 12/27/2019. Patient recently finished eight weeks of physical therapy. Has no complaints, no pain or discomfort with the exception of occasional stiffness. ROS Const Denies weakness Musc Reports system reviewed and no additional complaints, except as docu, Denies joint pain, Denies joint swelling, Denies muscle cramps, Denies muscle weakness, Denies numbness, Denies radiating pain into limb, Reports stiffness, Denies tingling Skin/Breast Reports system reviewed and no additional complaints, except as docu, Denies lesions, Denies new lesions, Denies non-healing lesions, Denies itching, Denies rash, Denies skin ulcer, Denies sores, Denies wounds Neuro Yes system reviewed and no additional complaints, except as docu, No numbness, No radiating pain, No restless legs, No tingling, No tremor(s), No weakness Ortho Exam Right Knee Date of Surgery: 12/27/19 Skin/Wound: Yes healed, No erythema, No ecchymosis, No swelling Contralateral Normal: Yes Homans Sign: No Knee ROM: Yes ROM-Extension -20 to 0, Yes ROM-Flexion 0-140 Examination: No Med jt line tenderness, No Lat jt line tenderness, No Pain with flexion, No Pain with extention KNEE: No abnormalities on inspection of the knee. No localized or generalized swelling. Incision sites have healed well with minimal scarring. Patient has full range of motion comparable to the right knee. She has no tenderness on palpation. She has no discomfort, catching/clicking, or other signs with Kely's. Patient is no calf tenderness and normal sensation throughout the extremity. Assessment Plan Problems 1. Orthopedic aftercare Z47.89 Plan Patient presents the office approximately 3 months out from right knee arthroscopy with meniscal repair and microfracture of the notch. Patient underwent physical therapy and at this time states she has no concerns or complaints. She sometimes feels a little stiff but after she is up and about and moving she states that she feels better. No other complaints or concerns at this time. We did discuss that with her diabetes and her red hair and fair complexion that she is at increased risk for scar tissue again and therefore continue to work with range of motion. Patient can continue with activities as tolerated. We did discuss universal precautions watching any twisting mechanisms of the knee. Notify of any new injuries, increased pain, swelling, or any other signs or symptoms. This note was generated with [employer] software. It may contain incorrect words, spelling, and punctuation that were not noted in checking the note before signing. Coding Level of Care Code Global Post Op Diagnoses Orthopedic aftercare Z47.89 03/19/20 1345 <Electronically signed by Amy TA> Date Amy TA Cosigner Signature: Date (if applicable) CC: Cecy Alarcon Start: 03-17-2020 End: 03-17-2020 Endocrinology Visit Report Comments: See Note; NOTES: [facility] [address] [place] [address]. [address] [place] [address] OFFICE VISIT Date of Service: 03/17/20 MR#: [id number] Acct: [id number] Name: NOHELIACIRILO TERRIE Rep #: [id number] : 1965 Provider: Teressa Duron Age/Sex: 55/F Location: [facility] [place] Status: Signed Intake Vital Signs 03/17/20 Height 5 ft 2 in 03/17/20 Weight: 152 lb 03/17/20 BMI 27.8 03/17/20 BP 130/82 H Intake Visit Reasons: 3 M FU DM Chief Complaint: Diabetes Allergies No Known Allergies Allergy (Verified 03/17/20 11:02) [facility] Medical History Diabetes type 1, controlled (Acute) Hyperlipidemia (Acute) Hypothyroidism (Acute) Knee pain (Acute) Thyroid nodule (Acute) HTN (hypertension) (Chronic) Surgical History H/O colonoscopy (Acute) H/O lumpectomy (Acute) H/O: (Acute) History of (Acute) History of carpal tunnel release (Acute) History of carpal tunnel release of both wrists (Acute) History of lumpectomy of right breast (Acute) Family History Mother Diabetes Bleeding disorder High cholesterol Cancer Heart disease Hypertension Melanoma Father Alcoholism Sister Colon cancer Diabetes Brother Diabetes Social History (Updated 03/17/20 @ 11:[address] Remberto Lubin MD) Smoking Status: Never smoker second hand exposure: No alcohol intake: current substance use type: does not use HPI HPI Chief Complaint: Diabetes Details: CIRILO CEBALLOS, is a 55 F who presents to the office today for follow up of diabetes. A1C went from 9.2% to 7.3% Great job! She is still afraid of going low. She would like to upgrade to Antonieta 2. Labs will be due next appointment. The patient is checking their blood sugar 4 times per day. The patient is taking insulin 3 or more times per day. The patient requires frequent testing in order to adjust insulin dosing. The patient is at risk for hypoglycemia. Exam Const General: cooperative, healthy appearing, comfortable, no acute distress, well developed, not cushingoid Nutritional Appearance: well nourished Orientation: alert, awake, oriented x3 HENMT Head: normal to inspection Ears: hearing grossly normal bilaterally Nose: external nose normal Mouth: oral mucosae normal Eyes General: appearance normal, both eyes and all related structures Alignment and Position: alignment normal Periorbital: periorbital findings normal Eyelids: eyelids normal Conjunctivae: conjunctivae normal Neck Neck: normal visual inspection Neck mass: No Thyroid: thyroid normal Carotids: no bruits Lymphatic: no lymphadenopathy noted Chest Chest palpation inspection: normal inspection of the chest Resp Effort Inspection: normal respiratory effort, able to speak in complete sentences, symmetric chest movement, no audible wheezes, no cough Auscultation: Bilateral: Clear to Auscultation Cardio Rate: regular rate Rhythm: regular rhythm Pulses: posterior tibial pulses present GI Inspection: normal to inspection Auscultation: normal bowel sounds Palpation: soft, no hepatosplenomegaly Skin General: no rashes or lesions noted Neuro General: alert, awake, oriented x3 Cranial Nerves: CN's II-XI intact bilaterally Cognition: normal cognition Speech: speech normal Gait: normal gait Motor: muscle tone normal throughout Extrem General: no edema Psych Appearance: grossly normal Mental Status: mental status grossly normal Mood: congruent mood Affect: normal affect Speech and Movement: speech and movement normal Attitude: cooperative Thought Process: normal Thought Content: normal Judgment: judgment good Results POC A1C POC A1C 7.3 % Last Edit by Emily Ricks on 03/17/20 11:10 Assessment Plan 1. Type 1 diabetes mellitus with hyperglycemia E10.65 Plan Diabetes education provided. Upgrade to Antonieta 2 I reviewed her CGM report with her in detail. Lower basal from 26 units to 25 units. Increase supper insulin by 1-2 units. 2. Mixed hyperlipidemia E78.2 Plan Controlled, please continue current medications. 3. Hypothyroidism (acquired) E03.9 Ultra sound notes 8mm nodule and 2mm calcification. Pt not feeling any difficulty with swallowing at todays visit Plan Take levothyroxine on an empty stomach with water at least four hours after eating. Then wait 30-60 minutes before consuming any other food or beverage, especially coffee. Separate levothyroxine from vitamins by at least 4 hours. Stop taking any biotin supplement 4 days prior to having labs drawn. 4. Overweight (BMI 25.0-29.9) E66.3 Plan Near normal weight. Plan Detail Other Orders Orders: POC A1C Today E11.9 Other Medications New: flash glucose sensor (FreeStyle Antonieta 2 Sensor) As directed 2 ea 12RF lisinopril 20 mg PO QDAY 90 tabs 3RF kidneys Coding Level of Care Code Off vis,est,level 4 Diagnoses Type 1 diabetes mellitus with hyperglycemia E10.65 ?Diabetes mellitus type: type 1 ?Diabetes mellitus complication status: with hyperglycemia Mixed hyperlipidemia E78.2 Hypothyroidism (acquired) E03.9 Overweight (BMI 25.0-29.9) E66.3 03/17/20 1133 <Electronically signed by Remberto Lubin MD> Date Remberto Lubin MD Cosigner Signature: Date (if applicable) CC: Dr. Cecy Alarcon, DO Cecy Alarcon Start: 02-06-2020 End: 02-06-2020 Orthopedic Visit Report Comments: See Note; NOTES: [facility] [address] [place] [address] OFFICE VISIT Date of Service: 02/06/20 MR#: [id number] Acct: [id number] Name: CIRILO CEBALLOS Rep #: [id number] : 1965 Provider: KEYON Ling Age/Sex: 54/F Location: [facility] [place] Status: Signed Intake Vital Signs 02/06/20 BMI 27.2 Intake Visit Reasons: RIGHT KNEE Chief Complaint: Diabetes Is patient in pain?: No Allergies No Known Allergies Allergy (Verified 12/27/19 06:19) Medications atorvastatin 20 mg tablet 20 mg PO QDAY #90 tab 12/16/19 [Rx Confirmed 02/06/20] Acetaminophen [Tylenol Extra Strength] 500 - 1,000 mg PO Q6H PRN PRN 12/20/19 [History Confirmed 02/06/20] Levothyroxine Sodium [Synthroid] 75 mcg PO DAILY 12/20/19 [History Confirmed 02/06/20] Lisinopril 20 mg PO QDAY 12/20/19 [History Confirmed 02/06/20] Loratadine [Claritin] 10 mg PO DAILY 12/20/19 [History Confirmed 02/06/20] docusate sodium 100 mg capsule 100 mg PO DAILY #14 cap 12/31/19 [Rx Confirmed 02/06/20] insulin degludec 100 unit/mL (3 mL) subcutaneous pen 22 unit SC DAILY #15 ml 01/20/20 [Rx Confirmed 02/06/20] insulin lispro 200 unit/mL (3 mL) subcutaneous pen 15 unit SUBCUT TID #9 ml 01/21/20 [Rx Confirmed 02/06/20] PFSH Social History (Updated 02/06/20 @ 13:41 by KEYON Stephens) Smoking Status: Never smoker second hand exposure: No alcohol intake: current substance use type: does not use HPI RIGHT KNEE: Details: Parts of this documentation were recorded by a scribe, this documentation accurately reflects the service provided and the decisions made by Amy ovalle PA 02/06/20 1234. CIRILO CEBALLOS is a 54 year old F here today for 6 week post op Right knee arthroscopy, extensive synovectomy, bucket-handle medial meniscus repair, microfracture notch. Has full extension, flexion to about 60. Denies any pain. Denies any calf pain. Denies numbness, tingling or other associated symptoms. Patient has been attending PT at [facility]. She has been ambulating TTWB with her TROM locked in extension. ROS Musc Reports joint pain, Reports limited joint movement, Reports stiffness Skin/Breast Reports system reviewed and no additional complaints, except as docu Neuro Yes system reviewed and no additional complaints, except as docu Ortho Exam Right Knee Knee ROM: No ROM-Extension -20 to 0 (Approximately 5 degree lag), No ROM-Flexion 0-140 (Approximately 85 degrees) Examination: No Med jt line tenderness, No Lat jt line tenderness, No Pain with flexion, No Pain with extention Quad Atrophy: No Stability: NML: Anterior Drawer, NML: Posterior Drawer, NML: Valgus 30, NML: Varus 30 KNEE: No abnormalities on inspection. Her incision sites have healed well with good approximation and minimal scarring. She does not have tenderness on palpation of the medial or the lateral joint or over the scars. Patient continues to have some decreased range of motion and as she has been in her T ROM brace locked in extension unless she is resting. She has no calf tenderness and has a negative Homans. She has normal sensation throughout the extremity normal distal pulses. Assessment Plan Problems 1. Orthopedic aftercare Z47.89 Plan Patient presents the office today 6 weeks postop from meniscus repair of the right knee. At this time patient is doing very well and has no concerns or complaints. Physical exam shows no abnormalities on inspection. She continues to have some decreased range of motion which she is working on in physical therapy. We stressed the importance of extension just as much as flexion today. At this time patient can begin to wean off of her crutches and out of her brace at the same time I do recommend she uses the brace and can start to unlock this more as a functional brace while she continues to gain strength during ambulation. I would suggest the same gradual approach when it comes to the crutches. He can ice and take anti-inflammatories as needed inflammation/pain. This note was generated with [employer] software. It may contain incorrect words, spelling, and punctuation that were not noted in checking the note before signing. Coding Level of Care Code Global Post Op Diagnoses Orthopedic aftercare Z47.89 02/06/20 1341 <Electronically signed by Amy TA> Date Amy TA Cosigner Signature: Date (if applicable) CC: Cecy Alarcon Start: 01-16-2020 End: 01-20-2020 Inital Evaluation (1) - PT Comments: See Note; NOTES: [facility] [address] [place] [address] [address] [place] [address] / REHABILITATION SERVICES INITIAL EVALUATION MR#: [id number] Acct: [id number] Name: CIRILO CEBALLOS Rep #: [id number] : 1965 54 From: Raji Rubin PT, Cert. T, OCS Referring Dr.: Dr. Romi Hamm DO Status: REG R Insurance: [facility] SEL[employer] PAY [facility]URANCE Patient's Visit Information CIRILO CEBALLOS is a 54 year old F referred to Physical Therapy by Dr. Romi Hamm, with a diagnosis of MENISCUS REPAIR RIGHT KNEE. Date of Evaluation: 01/16/20 Physical Therapist: Raji Rubin, PT, Cert MDT, OCS - Visit Plan Frequency: 2x /Week Duration: 2 Months Plan: SEE PRACTICE CLINICAL GUIDELINES MENISCAL REPAIR. PATIENT UNDERWENT S/P MENISCUS REPAIR 12/27/19. INTIALLY NWB WITH IROM BRACE LOCKED IN EXTENSION WITH CRUTCHES ,CURRENTLY TDWB WITH KNEE BRACE LOCKED IN EXTENSION WITH GAIT OKAY TO UNLOCK TO 40 DEGREES AT REST,RTD 7.23. PT INTERVENTIONS ROM TO 40 DEGREES ,CP STRENGTHENING SEE ARIEL WITH PRGRESSION - Subjective This 54 y/o female presents to physical therapy with meniscus repair right knee. Patient developed some mild discomfort November 10 getting bed of truck next day pain with limp then had injection helped on Mat 7 . Following Monday standing in yard severe pain fell to ground. Then [facility] did MRI showed bucket handle meniscus tear. Then underwent s/p arthroscopic extensive synovectomy and repair of meniscus on 12/27/19. Patient intially NWB with crutches for 2weeks locked in Extension ,see 02/10/20 okay TDWB -30% with crutches with knee brace locked in extension okay to unlock 40 degrees for ADL's .Patient has min pain. Patient does steps one step at time.Pateint has min edema. Patient has limitations with ADL'S,housework tasks and RTW with gait. Patient surgery affects gait and QOL.RTW 02/05/17 - Pain Right Knee Pain Intensity (Out of 10): 3 Pain Intensity Range: 10 - Objective POSTURE: mild foward posture,knee brace inatct. GAIT: ambulates knee brace locked antalgic gait TDWB RLE. EDEMA: 35.5 cm joint line. AROM: 2-40 degrees supine knee flexion. MMT: HIP 3+/5 ,KNEE NT. BALANCE: good - with crutches. STAIRS: one step at a time with crutches with TDWB RLE - Goals Goal 1:: Independant with HEP Goal Time Frame: 8-12 Weeks Goal 2:: Normalize gait pattern with WBAT NO DEVICE Goal Time Frame: 8-12 Weeks Goal 3:: Increase AROM supine knee flexion 0-125 degrees or > to improve gait and stairs. Goal Time Frame: 8-12 Weeks Goal 4:: Patient to increase strength quads/hams/hip 4/5 to improve function Goal Time Frame: 8-12 Weeks Goal 5:: Patient to improve LFES SCAORE by 10 points or > to improve QOL. Goal Time Frame: 8-12 Weeks Goal 6:: Balance to normal Goal Time Frame: 8-12 Weeks - Rehabilitation Potential Physical Therapy Diagnosis: This 54 y/o female presents to physical therapy with meniscus repair with TDWB RLE,impairments with gait ROM,strength,thUS benifit from skilled PT Rehabilitation Potential: Good - Anticipated Interventions Patient/Client Instruction: Educate patient on: Condition, Plan of Care For the Purpose of:: To decrease swelling/inflammation, To increase ROM, To improve muscle performance and motor function, To improve ability to perform ADL's, To increase tolerance to activity/condition/position , To improve performance and independence with ADL's, To improve ability of physical actions for home/community/work/leisure , To improve gait and locomotor functions, To improve health of tissue, To decrease soft tissue restriction, To increase flexibility/ROM, To assume or resume ADL's, To improve ability to perform tasks related to life management Therapeutic Exercise to Include: Strength training, Flexibilty training, Gait and locomotor training, Passive ROM, Active ROM Comment: KNEE/HIP. SEE CLINICAL GUIDELINES WITH PROGRESSION For the Purpose of:: To decrease pain, To increase ROM, To improve muscle performance and motor function, To improve ability to perform ADL's, To increase tolerance to activity/condition/position , To improve ability of physical actions for home/community/work/leisure , To improve gait and locomotor functions, To improve health of tissue, To decrease soft tissue restriction, To increase flexibility/ROM, To improve safety with gait, To improve ability to perform tasks related to life management, To improve tolerance to ADL's TENS: Yes IF ES: Yes Cryotherapy (ice pack, ice massage): Yes Thermo therapy (hot pack): Yes For the Purpose of:: To decrease pain, To decrease swelling/inflammation Thank you for the opportunity to evaluate your patient. For Medicare and Medicare HMO plans, please review the plan of care and approve it. It will need to be FAXED BACK to us at [phone] for Medicare purposes. For Medicare only, by signing this I certify the plan of care. Please let me know if there are questions or concerns regarding this plan of care. Physician Signature: Date: <Electronically signed by Raji Rubin PT Cert. MELA, OCS> 01/20/20 1403 CC: Dr. Romi Hamm DO; Dr. Cecy Alarcon DO DANIEL Signed Cecy Alarcon Start: 01-09-2020 End: 01-09-2020 Orthopedic Visit Report Comments: See Note; NOTES: [facility] [address] [place] [address] [address] [place] [address] OFFICE VISIT Date of Service: 01/09/20 MR#: [id number] Acct: [id number] Name: CIRILO CEBALLOS Rep #: [id number] : 1965 Provider: Dr. Romi kelsey DO Age/Sex: 54/F Location: [facility] [place].[facility] Status: Signed Intake Intake Visit Reasons: right knee Chief Complaint: Diabetes Allergies No Known Allergies Allergy (Verified 12/27/19 06:19) [facility] Social History (Updated 01/09/20 @ 15:[address] Romi Hamm DO) Smoking Status: Never smoker second hand exposure: No alcohol intake: current substance use type: does not use HPI right knee: Details: Parts of this documentation were recorded by a scribe, this documentation accurately reflects the service provided and the decisions made by me, Dr. Romi Hamm DO 01/09/20 1422. CIRILO CEBALLOS is a 54 year old F here today for 2 week post op from Right knee arthroscopy, extensive synovectomy, bucket-handle medial meniscus repair, microfracture notch. Sutures removed today without concern. No s/sx of infection noted. Denies numbness, tingling or other associated symptoms.Denies any calf pain or tenderness. ROS Musc Reports joint pain, Reports limited joint movement, Reports stiffness Skin/Breast Reports system reviewed and no additional complaints, except as docu Neuro Yes system reviewed and no additional complaints, except as docu Ortho Exam Right Knee Date of Surgery: 12/27/19 Skin/Wound: Yes healing, Yes suture/dano removed, No erythema, No ecchymosis, No swelling Homans Sign: No Knee ROM: Yes ROM-Extension -20 to 0, No ROM-Flexion 0-140 KNEE: no s/sx of infection noted Assessment Plan Problems 1. Orthopedic aftercare Z47.89 Plan Patient educated that she can begin 30% WB of her right leg now to keep her active because she has a hard time with crutches and a walker. She has to ambulate with her TROM locked in extension. Educated that she can unlock her brace while she is at rest to aid in flexion and prevent stiffness. PT script given today for HEP until she is able to bear weight. Follow up in 4 weeks or sooner if pain, swelling, numbness or associated symptoms, or concerns develop. Coding Level of Care Code Global Post Op Diagnoses Orthopedic aftercare Z47.89 01/09/20 1506 <Electronically signed by Romi Hamm DO> Date Romi Hamm DO Cosigner Signature: Date (if applicable) CC: Cecy Alarcon Start: 12-31-2019 End: 12-31-2019 Orthopedic Visit Report Comments: See Note; NOTES: [facility] [address] [place] [address] OFFICE VISIT Date of Service: 12/31/19 MR#: [id number] Acct: [id number] Name: CIRILO CEBALLOS Rep #: [id number] : 1965 Provider: Dr. Romi kelsey DO Age/Sex: 54/F Location: [facility] [place].[facility] Status: Signed Intake Vital Signs 12/31/19 BMI 27.2 Intake Visit Reasons: right knee Chief Complaint: Diabetes Allergies No Known Allergies Allergy (Verified 12/27/19 06:19) [facility] Social History (Updated 12/31/19 @ 16:[address] Romi Hamm DO) Smoking Status: Never smoker second hand exposure: No alcohol intake: current substance use type: does not use HPI right knee: Details: Parts of this documentation were recorded by a scribe, this documentation accurately reflects the service provided and the decisions made by me, Dr. Romi Hamm DO 12/31/19 1428. CIRILO CEBALLOS is a 54 year old F here today for 5 day post op from Right knee arthroscopy, extensive synovectomy, bucket-handle medial meniscus repair, microfracture notch. Patient states her pain has been controlled with tylenol. Denies numbness, tingling or other associated symptoms. Incision is healing well. No s/sx of infection noted. Brace adjusted. ROS Musc Reports joint pain, Reports limited joint movement, Reports stiffness Skin/Breast Reports system reviewed and no additional complaints, except as docu Neuro Yes system reviewed and no additional complaints, except as docu Ortho Exam Right Knee Date of Surgery: 12/27/19 Skin/Wound: Yes healing, No erythema, No ecchymosis, No swelling Homans Sign: No Knee ROM: Yes ROM-Extension -20 to 0, No ROM-Flexion 0-140 Assessment Plan Problems 1. Orthopedic aftercare Z47.89 Plan Personally reviewed patients surgical images with her today. Patient educated that she had a meniscus repair. Educated that she will remain in the TROM brace for a total of 6 weeks. Follow up next week for suture removal or sooner if pain, swelling, numbness or associated symptoms, or concerns develop. All questions answered. Patient in agreement of plan. Medications New: docusate sodium (Colace) 100 mg PO DAILY 14 caps 0RF Coding Level of Care Code Global Post Op Diagnoses Orthopedic aftercare Z47.89 12/31/19 1604 <Electronically signed by Romi Hamm DO> Date [facility] Signature: Date (if applicable) CC: Cecy Alarcon Start: 12-27-2019 End: 12-27-2019 Discharge Instruction Comments: See Note; NOTES: [facility] Medical Records Department [address] [place] [address] Instructions for Home/Discharge Instructions 12/27/19 0732 MR#: [id number] Acct: [id number] Name: CIRILO CEBALLOS Rep #: [id number] : 1965 54 From: Romi Hamm DO PCP: Dr. Cecy Alarcon, DO Status:REG SDC Discharge Diet: No Restrictions - Toe-touch weightbearing operative extremity, brace may be unlocked while seated 0 to 30 degrees, brace locked in extension during ambulation and at night, follow-up on Monday for dressing change and brace adjustment with Florencio Wayt, may get incision wet after that time, call with increased pain numbness tingling or other issues arise Discharge Activity: May Not Drive May shower in (days): 1 Ice area for (Minutes): 20 - Every hour while awake. Weight Bearing Status: Weight bearing as tolerated Keep extremity elevated above heart level: Operative Extremity Call your doctor if your incision/area has: Continuous Slow Oozing, Sudden Increased Bleeding, Increased Pain/ Swelling, Increased Redness, Foul Smelling Discharge Call your doctor if you observe: Fever of 101 or Higher, Coldness, Increased Pain, Numbness or Tingling, Change in Color, Calf discomfort Allergies/Adverse Reactions: Allergies No Known Allergies Allergy (Verified 12/27/19 06:19) Medications to take at Discharge insulin degludec 100 unit/mL (3 mL) subcutaneous pen 22 unit SC DAILY ml 05/24/19 atorvastatin 20 mg tablet 20 mg PO QDAY #90 tab 12/16/19 Acetaminophen [Tylenol Extra Strength] 500 - 1,000 mg PO Q6H PRN PRN 12/20/19 Insulin Lispro [Humalog KwikPen Insulin] 15 unit SUBCUT TID 12/20/19 Levothyroxine Sodium [Synthroid] 75 mcg PO DAILY 12/20/19 Lisinopril 20 mg PO QDAY 12/20/19 Loratadine [Claritin] 10 mg PO DAILY 12/20/19 Hydrocodone Bitart/Apap 5-325 [[place] 5MG-325MG] 1 - 2 tab PO Q6H PRN PRN 5 Days #25 tab 12/27/19 The following prescriptions were given: Hydrocodone Bitart/Apap 5-325 [[place] 5MG-325MG] 1 - 2 tab PO Q6H PRN PRN 5 Days #25 tab PRN Reason: Pain Transmission Status: Received by [facility] Primary Care Physician: Cecy Alarcon DO [Primary Care Provider] - Test Results: Test results from this visit will be discussed in further detail at your follow-up appointment, if applicable. Please Follow Up With: Romi Hamm DO - [phone] 12/27/19 0859 <Electronically signed by Romi Hamm DO> Date Romi Hamm DO CC: Dr. Cecy Alarcon DO Signed Cecy Alarcon Start: 12-27-2019 End: 01-09-2020 Operative Report Comments: See Note; NOTES: [facility] Medical Records Department [address] [place] [address] Operative Report 12/27/19 0732 MR#: [id number] Acct: [id number] Name: CIRILO CEBALLOS Rep #: [id number] : 1965 54 From: Romi Hamm DO PCP: Dr. Cecy Alarcon DO Status:[facility] Location: [facility] Report of Operation Date of Procedure: 12/27/19 Pre-Operative Diagnosis: Right knee medial meniscus bucket-handle tear, synovitis Post-Operative Diagnosis: Same Surgery/Procedure Performed:: Right knee arthroscopy, extensive synovectomy, bucket-handle medial meniscus repair, microfracture notch industrial roof plumber: Amy Ling Type of Anesthesia:: General Anesthesiologist: Cristofer Nobles Replaced: 800cc lr Description of Procedure: Preoperative note Patient is a 54-year-old female injured her right knee. Had locking of the right knee MRI confirms bucket-handle medial meniscus tear she was seen by my physician's conventions assistant. At that time decision was made to take her to the operating room for operative fixation. We did discuss however due to her age that if we did repair it she has a less likelihood of it being able to take so to speak due to her age however doing a subtotal meniscectomy at this stage would further any arthritis and necessitate a total knee arthroplasty in the future. Patient and are aware would like to see if the meniscus can be repaired but are aware of the risk associated with this as well. Risk benefits and alternatives were discussed with patient. Risk including but not limited to blood loss, blood clot, infection, neurovascular, failure procedure, loss of life and loss of limb. Patient is aware like proceed with right knee arthroscopy repair as indicated. We discussed the current risk associated COVID-19. While it is understood that there is a community spread of COVID 19 the risk of mary COVID-19 while at [facility] is very low, however, the risk cannot be completely mitigated because of the community spread of the disease. We discussed in detail the risk of exposure to and or potential harm posed by the COVID-19 virus with having a surgery/procedure at this time versus the risk of delaying the surgery/procedure. Is not possible to know either the risk of delaying the surgery procedure or chance of getting an infection with perfect accuracy, but a joint decision was made to proceed at this time with a schedule surgery/procedure as indicated on the consent form. Patient was notified that we will need to comply with any screening or testing [facility] wishes to perform or that surgery may be delayed for any positive results. Operative note Patient seen and examined preoperative holding area. Right knee was marked. Patient brought to the operating room placed supine on the operating table. Signed, anesthesia, antibiotics were administered. Right leg was prepped and draped in usual sterile fashion with tourniquet around her upper thigh. All bony prominences well-padded SCDs placed on her contralateral limb. The right knee was prepped and draped usual technique. We marked out our incisions for bony landmarks for our portal placement anterior lateral and anterior medial portal placements. The right leg was then elevated exsanguinated and tourniquet was raised her pressure of 250 torr. Timeout was performed. We then created an anterior lateral portal under direct visualization. Began our diagnostic arthroscopy. Patellofemoral joint was unremarkable and a difficult time getting to the anteromedial aspect due to the fact that the bucket-handle medial meniscus tear actually was locked anteriorly and there was resultant synovitis to the anterior medial and anterior lateral joint recess joint. We created an anteromedial portal. Resected back the thickened synovium both anterior medial and anterior lateral with a shaver. We were we then used a shaver to abrade debride back the site for the meniscus repair we noted that it was more capsular tear off of the anterior mid body then going posterior there was some aspect of the the red-white barrier were had torn off more posterior close to the posterior horn. Posterior horn was still intact however the decision was made after we were able to reduce after we did shave both the meniscal's side as well as the capsular side as well as punctate punctuating with 18-gauge spinal needle to instill blood flow that we able to reduce the meniscus and her best shot of decreasing arthritis and longevity to the to the medial compartment would be to remove attempt a repair which we did. We placed proximally 10 reverse curved FasT-Fix devices into the medial meniscus and bearing switching her portals to get the more mid body tear. We then inserted the probe and to probe the repair and we had good repair at that point. The ACL and PCL were present within the notch. The lateral meniscus was intact and stable probing. The lateral femoral condyle lateral tibial plateau were intact and stable probing as well. We then performed a microfracture of the notched to further blood in the need to help heal the medial meniscus repair. Tourniquet was deflated. Portals were closed with interrupted 4-0 nylon stitches. Sterile dressings were applied. Patient tolerated blade tolerated procedure well no complications transferred recovery room in stable condition. Postoperative note Toe-touch weightbearing right leg Brace locked in extension during ambulation and at night Patient will be given to family in 2 weeks Hospital pharmacy has pain prescription Call with increased pain numbness tingling further issues arise Brace may be unlocked 0-30 Pure[employer] disclaimer This note was generated with IP Ghoster dictation software. It may contain incorrect words, spelling, and punctuation that were not noted in checking the note before signing. 01/09/20 1152 <Electronically signed by Romi Hamm DO> Date Romi Hamm DO CC: Dr. Romi Hamm DO; Dr. Cecy Alarcon DO Signed Cecy Alarcon Start: 12-27-2019 End: 12-27-2019 History and Physical Exam Comments: See Note; NOTES: [facility] Medical Records Department [address] [place] [address] History and Physical 12/27/19 0727 MR#: [id number] Acct: [id number] Name: CIRILO CEBALLOS Rep #: [id number] : 1965 54 From: Romi Hamm DO PCP: Dr. Cecy Alarcon, DO Status:REG SDC Y Location: [place] [address] History and Physical I have re-examined the patient. There are no clinical changes since date of exam. Intake Vital Signs 12/06/19 BMI 25.7 Intake Visit Reasons: RIGHT KNEE Chief Complaint: right knee Is patient in pain?: Yes Allergies No Known Allergies Allergy (Verified 11/28/19 13:14) [facility] Medical History (Updated 11/27/19 @ 06:52 by Larissa Hartmann) Diabetes type 1, controlled (Acute) Hyperlipidemia (Acute) Hypothyroidism (Acute) Knee pain (Acute) Thyroid nodule (Acute) HTN (hypertension) (Chronic) Social History (Updated 12/06/19 @ 16:22 by KEYON Stephens) Smoking Status: Never smoker second hand exposure: No alcohol intake: current substance use type: does not use HPI RIGHT KNEE: Details: Parts of this documentation were recorded by a scribe, this documentation accurately reflects the service provided and the decisions made by Amy ovalle PA 12/06/19 1225. CIRILO CEBALLOS is a 54 year old F here today for f/u on right knee MRI. Patient presents in a wheelchair today. She complains of medial knee pain, clicking that does not increase pain. She has been nwb with crutches at home and states she has not tried any ambulation with the crutches. Denies numbness, tingling or other associated symptoms. There is very mild swelling today. Ortho Exam Right Knee Skin/Wound: No erythema, No ecchymosis Contralateral Normal: Yes Homans Sign: No Knee ROM: No ROM-Extension -20 to 0, No ROM-Flexion 0-140 Examination: Yes Med jt line tenderness KNEE: No acute abnormalities on inspection today. No erythema, ecchymosis/bruising, warmth, or other skin changes. Patient still has decreased range of motion at this time and continues to have medial joint line tenderness. Assessment Plan Problems 1. Internal derangement of right knee M23.91 2. Acute medial meniscus tear of right knee, subsequent encounter S83.784D Plan Patient presents to the office to review MRI of the right knee. Images as well as impression were discussed with patient showing evidence of a right medial meniscus bucket-handle tear. This would correspond with her symptoms which include locking/decreased range of motion. At this time we did discuss there is also some arthritis in the medial compartment. With that mechanical symptoms she is having in the tear noted MRI we are going to have to proceed with arthroscopy for medial meniscus repair versus meniscectomy. Risks and benefits of the procedure were discussed with patient and all of her questions were answered to her satisfaction today. Consent was signed in office today. Patient should continue nonweightbearing using crutches/wheelchair. She continue to ice and take an anti-inflammatory. Patient be contacted by our office regarding surgical days and will be contacted by surgery department for preanesthesia testing and timing of her surgery. Patient was given antimicrobials cleanse to be used the night before and the morning of her procedure. We discussed that fixing meniscus depends really on what we see we get in there. We did discuss that with her arthritis that it is still possible that she will have continued pain to the medial compartment as well as the possibility of increasing her rate for arthritis depending on the amount of meniscus that is unable to be repaired. Patient again understands all these risks and would like to again proceed with surgery. She is to notify our office in the meantime if she has other concerns or complaints or any other problems. This note was generated with IP Ghoster dictation software. It may contain incorrect words, spelling, and punctuation that were not noted in checking the note before signing. Coding Level of Care Code Off vis,est,level 2 Diagnoses Internal derangement of right knee M23.91 Acute medial meniscus tear of right knee, subsequent encounter S83.170D ?Encounter type: subsequent encounter 12/27/19 0728 <Electronically signed by Romi Hamm DO> Date Romi Hernandezignrichelle Signature: Date (if applicable) CC: Dr. Romi Hamm DO; Dr. Cecy Alarcon DO Signed Cecy Alarcon Start: 12-16-2019 End: 12-16-2019 Endocrinology Visit Report Comments: See Note; NOTES: [facility] [address] [place] [address] OFFICE VISIT Date of Service: 12/16/19 MR#: [id number] Acct: [id number] Name: CIRILO CEBALLOS Rep #: [id number] : 1965 Provider: Teressa Duron Age/Sex: 54/F Location: [facility] Status: Signed Intake Vital Signs 12/16/19 BMI 25.7 12/16/19 Height 5 ft 2 in 12/16/19 Weight: 150 lb 6 oz 12/16/19 BP 130/78 H 12/16/19 Pulse 79 Intake Visit Reasons: Diabetes Chief Complaint: Diabetes Allergies No Known Allergies Allergy (Verified 12/16/19 11:05) Medications lisinopril 20 mg tablet 20 mg PO QDAY #90 tab 03/21/18 [Rx Confirmed 12/16/19] insulin degludec 100 unit/mL (3 mL) subcutaneous pen 18 unit SC DAILY ml 05/24/19 [History Confirmed 12/16/19] insulin lispro 200 unit/mL (3 mL) subcutaneous pen 15 unit SC TID #18 ml 07/02/19 [Rx Confirmed 12/16/19] atorvastatin 20 mg tablet 20 mg PO QDAY #90 tab 12/16/19 [Rx Confirmed 12/16/19] cyclobenzaprine 10 mg tablet 10 mg PO TID PRN tab 12/16/19 [History] levothyroxine 75 mcg tablet 75 mcg PO DAILY #90 tab 12/16/19 [Rx Confirmed 12/16/19] [facility] Medical History Diabetes type 1, controlled (Acute) Hyperlipidemia (Acute) Hypothyroidism (Acute) Knee pain (Acute) Thyroid nodule (Acute) HTN (hypertension) (Chronic) Surgical History H/O colonoscopy (Acute) H/O lumpectomy (Acute) H/O: (Acute) History of (Acute) History of carpal tunnel release (Acute) History of carpal tunnel release of both wrists (Acute) History of lumpectomy of right breast (Acute) Family History Mother Diabetes Bleeding disorder High cholesterol Cancer Heart disease Hypertension Melanoma Father Alcoholism Sister Colon cancer Diabetes Brother Diabetes Social History (Updated 12/16/19 @ 11:[address] Remberto Lubin MD) Smoking Status: Never smoker second hand exposure: No alcohol intake: current substance use type: does not use HPI HPI Chief Complaint: Diabetes Details: CIRILO CEBALLOS, is a 54 F who presents to the office today for follow up of diabetes. A1C is unchanged at 9/2% She is using Anton[employer] CGM, but she has not been able to send me her linked reports and she hasn't called for help. AGP REport Estimated A1C 8.0% This means that blood sugars have improved recently. In range: 41% Her blood sugars are rising significantly over night. .ros ROS Const Constitutional: No anorexia, body ache, chills, excessive sweating, fatigue, fever(s), frequent falls, headache(s), decreased energy, malaise, night sweats, snoring, weakness, weight change, sleep problems, abnormal sleep pattern, change in appetite or other Eyes Eyes: No blurry vision, change in [...] headache(s), facial pain, dental pain, dry mouth, difficulty swallowing, bad breath, hoarseness, lip swelling, mouth lesions, mouth pain, neck pain, sore throat, tongue swelling, throat swelling or other Resp Respiratory: No cough, change in phlegm [...] odor, Vaginal Itching or other Musc Musculoskeletal: Positive for joint pain; no abnormal walking, back pain, deformity, joint swelling, limited range [...] swelling, wounds or other Breast Breast: No change in breast shape, breast lump, breast pain, breast skin changes, breast swelling, nipple discharge or other Neuro Neurology: No abnormal walking, abnormal hearing, abnormal movements, abnormal speech, behavioral changes, confusion, unsteady gait/balance, dizziness, weakness, frequent falls, headache(s), lack of coordination, loss of vision, memory loss, numbness, tingling, visual disturbances, restless legs, fainting, tremor(s) or other Psych Psychiatric: No abnormal sleep pattern, No lack of enjoyment, No anxiety, No behavioral changes, No change in appetite, No confusion, No depression, No difficulty concentrating, No hopelessness, No irritability, No memory loss, No mood swings, No panic attacks, No paranoia, No Thoughts of harming yourself/Others, No hallucinations, No other Endo Endocrine: No change in body appearance, cold intolerance, excessive sweating, fatigue, flushing, heat intolerance, increased thirst/drinking, increased hunger, increased urination or other Aller/Imm Allergy/Immunologic: No food intolerance, itchy eyes, lip swelling, seasonal allergy symptoms, throat swelling, tongue swelling, hives, wheezing or other Ciaran/Lymp Hematologic/Lymphatic: Positive for easy bruising; no easy bleeding, enlarged lymph nodes or other Exam Const General: cooperative, healthy appearing, comfortable, no acute distress Nutritional Appearance: well nourished Orientation: alert, awake, oriented x3 HENMT Head: normocephalic, atraumatic Ears: hearing grossly normal bilaterally, external ears normal Nose: external nose normal Face and sinus: normal facial exam Mouth: oral mucosae normal Eyes General: appearance normal, both eyes and all related structures Pupils: PERRL EOM: EOM intact bilaterally Neck Neck: normal visual inspection, no lymphadenopathy Neck mass: No Thyroid: thyroid normal Carotids: no bruits Chest Chest palpation inspection: normal inspection of the chest Resp Effort Inspection: normal respiratory effort, able to speak in complete sentences Auscultation: Bilateral: Clear to Auscultation Cardio Rate: regular rate Rhythm: regular rhythm Heart Sounds: S1 normal, S2 normal Pulses: posterior tibial pulses present, dorsalis pedis pulses present GI Palpation: soft, no hepatosplenomegaly Musc Musculoskeletal: No muscle weakness Other: using crutches Skin General: no erythema Lesions: other (no lipohypertophy) Neuro General: CN's II-XI intact bilaterally Cognition: normal cognition Speech: speech normal Gait: gait assisted Method: crutches Extrem General: no edema Psych Appearance: well kempt Mood: congruent mood Affect: normal affect Speech and Movement: speech and movement normal Attitude: cooperative Thought Process: normal Thought Content: normal Results POC A1C POC A1C 9.2 % Last Edit by Helga Willingham on 12/16/19 11:13 Assessment Plan 1. Type 1 diabetes mellitus with hyperglycemia E10.65 Plan Diabetes education provided. I reviewed her CGM report. Increase Tresiba to 22 units. Please call customer support in order to get Antonieta to upload. Contact me more often for inslulin changes. Medications Refilled: atorvastatin 20 mg PO QDAY 90 tabs 3RF 2. Hypothyroidism (acquired) E03.9 Ultra sound notes 8mm nodule and 2mm calcification. Pt not feeling any difficulty with swallowing at todays visit Plan Take levothyroxine on an empty stomach with water at least four hours after eating. Then wait 30-60 minutes before consuming any other food or beverage, especially coffee. Separate levothyroxine from vitamins by at least 4 hours. Stop taking any biotin supplement 4 days prior to having labs drawn. 3. Mixed hyperlipidemia E78.2 Plan LDL is small and dense. Will improve with euglycemia. Refill sent 4. Overweight (BMI 25.0-29.9) E66.3 Plan Near normal weight. Plan Detail Other Orders Orders: POC A1C Today E10.9 Other Medications Refilled: levothyroxine 75 mcg PO DAILY 90 tabs 1RF Coding Level of Care Code Off vis,est,level 4 Diagnoses Type 1 diabetes mellitus with hyperglycemia E10.65 ?Diabetes mellitus type: type 1 ?Diabetes mellitus complication status: with hyperglycemia Hypothyroidism (acquired) E03.9 Mixed hyperlipidemia E78.2 Overweight (BMI 25.0-29.9) E66.3 12/16/19 1144 <Electronically signed by Remberto Lubin MD> Date Remberto Lubin MD Cosigner Signature: Date (if applicable) CC: Dr. Cecy Alarcon, DO Cecy Alarcon Start: 12-06-2019 End: 12-06-2019 Orthopedic Visit Report Comments: See Note; NOTES: [facility] [address] [place] [address] OFFICE VISIT Date of Service: 12/06/19 MR#: [id number] Acct: [id number] Name: CIRILO CEBALLOS Rep #: [id number] : 1965 Provider: KEYON Ling Age/Sex: 54/F Location: [facility] [place] Status: Signed Intake Vital Signs 12/06/19 BMI 25.7 Intake Visit Reasons: RIGHT KNEE Chief Complaint: right knee Is patient in pain?: Yes Allergies No Known Allergies Allergy (Verified 11/28/19 13:14) [facility] Medical History (Updated 11/27/19 @ 06:52 by Larissa Hartmann) Diabetes type 1, controlled (Acute) Hyperlipidemia (Acute) Hypothyroidism (Acute) Knee pain (Acute) Thyroid nodule (Acute) HTN (hypertension) (Chronic) Social History (Updated 12/06/19 @ 16:22 by KEYON Stephens) Smoking Status: Never smoker second hand exposure: No alcohol intake: current substance use type: does not use HPI RIGHT KNEE: Details: Parts of this documentation were recorded by a scribe, this documentation accurately reflects the service provided and the decisions made by Amy ovalle PA 12/06/19 1225. CIRILO CEBALLOS is a 54 year old F here today for f/u on right knee MRI. Patient presents in a wheelchair today. She complains of medial knee pain, clicking that does not increase pain. She has been nwb with crutches at home and states she has not tried any ambulation with the crutches. Denies numbness, tingling or other associated symptoms. There is very mild swelling today. Ortho Exam Right Knee Skin/Wound: No erythema, No ecchymosis Contralateral Normal: Yes Homans Sign: No Knee ROM: No ROM-Extension -20 to 0, No ROM-Flexion 0-140 Examination: Yes Med jt line tenderness KNEE: No acute abnormalities on inspection today. No erythema, ecchymosis/bruising, warmth, or other skin changes. Patient still has decreased range of motion at this time and continues to have medial joint line tenderness. Assessment Plan Problems 1. Internal derangement of right knee M23.91 2. Acute medial meniscus tear of right knee, subsequent encounter S83.843D Plan Patient presents to the office to review MRI of the right knee. Images as well as impression were discussed with patient showing evidence of a right medial meniscus bucket-handle tear. This would correspond with her symptoms which include locking/decreased range of motion. At this time we did discuss there is also some arthritis in the medial compartment. With that mechanical symptoms she is having in the tear noted MRI we are going to have to proceed with arthroscopy for medial meniscus repair versus meniscectomy. Risks and benefits of the procedure were discussed with patient and all of her questions were answered to her satisfaction today. Consent was signed in office today. Patient should continue nonweightbearing using crutches/wheelchair. She continue to ice and take an anti-inflammatory. Patient be contacted by our office regarding surgical days and will be contacted by surgery department for preanesthesia testing and timing of her surgery. Patient was given antimicrobials cleanse to be used the night before and the morning of her procedure. We discussed that fixing meniscus depends really on what we see we get in there. We did discuss that with her arthritis that it is still possible that she will have continued pain to the medial compartment as well as the possibility of increasing her rate for arthritis depending on the amount of meniscus that is unable to be repaired. Patient again understands all these risks and would like to again proceed with surgery. She is to notify our office in the meantime if she has other concerns or complaints or any other problems. This note was generated with IP Ghoster dictation software. It may contain incorrect words, spelling, and punctuation that were not noted in checking the note before signing. Coding Level of Care Code Off vis,est,level 2 Diagnoses Internal derangement of right knee M23.91 Acute medial meniscus tear of right knee, subsequent encounter S83.845D ?Encounter type: subsequent encounter 12/06/19 1462 <Electronically signed by Amy TA> Date [facility] Signature: Date (if applicable) CC: Cecy Alarcon Start: 12-03-2019 End: 12-03-2019 Lower Ext Joint Only (Routine) Comments: See Note; NOTES: [facility] Imaging Services [address] [place] [address] Lower Ext Joint Only (Routine) MR#: [id number] Acct: [id number] Name: CIRILO CEBALLOS Rep #: [id number] : 1965 F 54 From: Jose L Lawrence MD PCP: Dr. Cecy Alarcon, DO Status: REG CLI Study: Lower Ext Joint Only (Routine) Date of Exam: 0 12/03/19 Exam# [id number] Ordering Dr: Amy Ling STUDY: MRI RIGHT KNEE REASON FOR EXAM: Female, 54 years old. Pain. Injury November 11, 2019 TECHNIQUE: Standardized fat and water weighted pulse sequences were obtained in all 3 orthogonal planes. COMPARISON: None. FINDINGS: There is a bucket handle tear of the medial meniscus, with a displaced meniscal fragment with in the intercondylar notch, series 9 images through . There is diffuse, less than 50% thickness articular cartilage loss of the medial femorotibial compartment. Normal medial femoral condyle and tibial plateau. Normal medial collateral ligamentous complex (MCL). Normal distal semimembranosus, gracilis and semitendinosus tendons. Normal lateral meniscus. Normal hyaline cartilage of the lateral femorotibial compartment. Normal lateral femoral condyle and tibial plateau. Normal proximal tibiofibular articulation. Normal lateral collateral (fibular) ligament. Normal popliteus tendon. Normal biceps femoris tendon. Normal anterior cruciate ligament (ACL). Normal posterior cruciate ligament (PCL). Normal congruent patellofemoral articulation. Normal hyaline cartilage of the patellofemoral compartment. Normal medial and lateral patellar retinaculum. Normal quadriceps tendon. Normal patellar tendon. Normal Hoffa''s fat pad. There is a large volume joint effusion. The soft tissues are unremarkable. The otherwise visualized osseous structures are unremarkable. MRI/Lower Ext Joint Only (Routine) IMPRESSION: Medial meniscus tear with flipped fragment. Large joint effusion. Electronically Signed: Jose L Lawrence MD at 18:22 EDT , Service support , CC: KEYON Ling; Dr. Cecy Alarcon DO Supervisor Die Casting: Signed Cecy Alarcon Start: 11-28-2019 End: 11-28-2019 Knee 4 or More Views Comments: See Note; NOTES: [facility] Imaging Services [address] [place] [address] Knee 4 or More Views MR#: [id number] Acct: [id number] Name: CIRILO CEBALLOS TERRIE Rep #: [id number] : 1965 F 54 From: Jorge rider MD PCP: Dr. Cecy Alarcon DO Status: REG CLI Study: Knee 4 or More Views Date of Exam: 11/28/19 Exam# [id number] Ordering Dr: Amy Ling STUDY: X-RAY - RIGHT KNEE REASON FOR EXAM: Female, 54 years old. Fell two weeks ago, unable to weight bear TECHNIQUE: 4 view(s) of the knee. COMPARISON: None. FINDINGS: Normal visualized distal femur. Normal visualized proximal tibia and fibula. Normal proximal tibiofibular articulation. Normal medial femorotibial compartment. Normal lateral femorotibial compartment. Normal patellofemoral articulation. Small joint effusion. RAD/Knee 4 or More Views IMPRESSION: Small joint effusion. Electronically Signed: Jorge Santizo, at 14:05 EDT , Service support , CC: KEYON Ling; Dr. Cecy Alarcon DO Supervisor Die Casting: Signed Cecy Alarcon Start: 11-28-2019 End: 11-28-2019 MR/BMS.[place] Comments: See Note; NOTES: [facility] [address] [place] [address] [address] [place] [address] OFFICE VISIT Date of Service: 11/28/19 MR#: [id number] Acct: [id number] Name: CIRILO CEBALLOS Rep #: [id number] : 1965 Provider: KEYON Ling Age/Sex: 54/F Location: [facility] [place] Status: Signed Intake Vital Signs 11/28/19 BMI 25.7 11/28/19 Height 5 ft 2 in 11/28/19 Weight: 152 lb 11/28/19 BMI 27.8 Intake Visit Reasons: right knee Chief Complaint: right knee Accompanied by: self Is patient in pain?: Yes Pain scale (1-10): 10 Allergies No Known Allergies Allergy (Verified 11/28/19 13:14) Medications lisinopril 20 mg tablet 20 mg PO QDAY #90 tab 03/21/18 [Rx Confirmed 11/28/19] atorvastatin 20 mg tablet 20 mg PO QDAY #90 tab 10/02/18 [Rx Confirmed 11/28/19] insulin degludec 100 unit/mL (3 mL) subcutaneous pen 18 unit SC DAILY ml 05/24/19 [History Confirmed 11/28/19] insulin lispro 200 unit/mL (3 mL) subcutaneous pen 15 unit SC TID #18 ml 07/02/19 [Rx Confirmed 11/28/19] levothyroxine 75 mcg tablet 75 mcg PO DAILY #90 tab 07/02/19 [Rx Confirmed 11/28/19] cyclobenzaprine 10 mg tablet 10 mg PO TID PRN #20 tab 11/27/19 [Rx Confirmed 11/28/19] PFSH Medical History (Updated 11/27/19 @ 06:52 by Larissa Hartmann) Diabetes type 1, controlled (Acute) Hyperlipidemia (Acute) Hypothyroidism (Acute) Knee pain (Acute) Thyroid nodule (Acute) HTN (hypertension) (Chronic) Social History (Updated 11/28/19 @ 15:36 by KEYON Stephens) Smoking Status: Never smoker second hand exposure: No alcohol intake: current substance use type: does not use HPI right knee: Details: Parts of this documentation were recorded by a scribe, this documentation accurately reflects the service provided and the decisions made by me, KEYON Stephens 11/28/19 1307. CIRILO CEBALLOS is a 54 year old F here today for right knee pain. She has had knee pain since 11/11/2019 states that she was climbing into the back of a truck and she felt something was off but didnt have any pain until after. States that on Monday she had a steroid injection with Dr. Alarcon and monday she was standing in the yard and her knee gave out on her and she was seen in the [facility] and then referred to our office. She is having anterior medial knee pain. She is unable to bear weight on her knee. She denies any popping or clicking but the states that he heard a pop when she fell on Monday. She has tried icing and heat, has been taking tylenol for her pain. ROS [facility] Reports joint pain, Reports limited joint movement, Reports stiffness Skin/Breast Reports system reviewed and no additional complaints, except as docu Neuro Yes system reviewed and no additional complaints, except as docu Ortho Exam Right Knee Skin/Wound: No erythema, No ecchymosis, No swelling Contralateral Normal: Yes Homans Sign: No Knee ROM: No ROM-Extension -20 to 0, No ROM-Flexion 0-140 Examination: Yes Med jt line tenderness, Yes Lat jt line tenderness (Very minimal), No TTP inf pole patella, No Crepitus, Yes Pain with flexion, Yes Pain with extention, Yes Kely's Test (Unable to fully complete), No TTP Patellar tendon, No TTP Tibial tubercle, No TTP Pes Anserine KNEE: There are no acute abnormalities on inspection of the right knee. There is no localized or generalized swelling and there is no ecchymosis/bruising, erythema, or other skin changes. Patient does have evident decreased range of motion in the knee. She has approximately 30 degrees of extension lag and only has about 90 degrees of flexion actively. At that point she resists any further passive range of motion. As a result of this decreased range of motion it is difficult to complete a true Kely's test. She does however have pain with attempted Kely's or tibial torsion (fixed upper leg). Assessment Plan Problems 1. Injury of right knee, initial encounter S89.91XA 2. Acute pain of right knee M25.561 3. Internal derangement of right knee M23.91 Plan Patient presents to the office with right knee pain following an episode where she went to step up into a bed of a truck and so she had to Hyperflex and possibly then twisted the knee. Patient states that she felt some discomfort immediately but continued to try and carry on with physical activity. She states that the pain really got worse at night. She was using an anti-inflammatory and some Tylenol and then proceeded to have a steroid injection from her PCPs office. She states that she did have good relief from the injection but as that wore off she started to have pretty severe pains again. She states there has been instability/giving out of the knee and most recently she has been unable to bend or straighten the knee. Her physical exam shows evident decreased in range of motion. She is doing a lot of guarding making her physical exam somewhat difficult. Unable to perform complete Kely's test at the same time any type of twisting of the knee causes reproducible pain in the medial joint line. At this time conservative measures which have included anti-inflammatories, rest, icing, and injection in the knee have not worked and she has seen some mechanical symptoms at this point and therefore an MRI is warranted to rule out medial meniscus tear. Patient is to notify our office once a date is scheduled to let us know. She will return to the office to review findings. Notify of any new injuries, increased pain, swelling, or any other signs or symptoms in the meantime. This note was generated with [employer] software. It may contain incorrect words, spelling, and punctuation that were not noted in checking the note before signing. Orders Orders: Knee 4 or More Views Today M25.561 Lower Ext Joint Only (Routine) Today M23.91, M25.561, S89.91XA Coding Level of Care Code Off vis,new,level 3 Diagnoses Injury of right knee, initial encounter S89.91XA ?Encounter type: initial encounter Acute pain of right knee M25.561 ?Chronicity: acute Internal derangement of right knee M23.91 11/28/19 1537 <Electronically signed by Amy TA> Date Amy TA Cosigner Signature: Date (if applicable) CC: Cecy Alarcon Start: 11-27-2019 End: 11-27-2019 MR/CEE.NOW Comments: See Note; NOTES: [facility] [address] [place] [address] OFFICE VISIT Date of Service: 11/27/19 MR#: [id number] Acct: [id number] Name: CIRILO CEBALLOS TERRIE Rep #: [id number] : 1965 Provider: Demarcus TA Age/Sex: 54/F Location: [facility] [place].NOW Status: Signed Intake Vital Signs 11/27/19 Height 5 ft 2 in 11/27/19 Weight: 152 lb 11/27/19 BMI 27.8 11/27/19 BP 120/68 11/27/19 Blood Pressure Location Lt brachial 11/27/19 Position Sitting 11/27/19 Respiration 14 11/27/19 Pulse 78 11/27/19 Temp 98.2 F 11/27/19 Temp Source Temporal 11/27/19 Pulse Oximetry (%) 99 11/27/19 Oxygen Delivery Method room air Intake Visit Reasons: RT KNEE INJURY Chief Complaint: Right knee pain Allergies No Known Allergies Allergy (Verified 11/27/19 06:50) Medications lisinopril 20 mg tablet 20 mg PO QDAY #90 tab 03/21/18 [Rx Confirmed 11/27/19] atorvastatin 20 mg tablet 20 mg PO QDAY #90 tab 10/02/18 [Rx Confirmed 11/27/19] insulin degludec 100 unit/mL (3 mL) subcutaneous pen 18 unit SC DAILY ml 05/24/19 [History Confirmed 11/27/19] insulin lispro 200 unit/mL (3 mL) subcutaneous pen 15 unit SC TID #18 ml 07/02/19 [Rx Confirmed 11/27/19] levothyroxine 75 mcg tablet 75 mcg PO DAILY #90 tab 07/02/19 [Rx Confirmed 11/27/19] cyclobenzaprine 10 mg tablet 10 mg PO TID PRN #20 tab 11/27/19 [Rx Confirmed 11/27/19] [facility] Medical History (Updated 11/27/19 @ 06:52 by Larissa Hartmann) Diabetes type 1, controlled (Acute) Hyperlipidemia (Acute) Hypothyroidism (Acute) Knee pain (Acute) Thyroid nodule (Acute) HTN (hypertension) (Chronic) Surgical History H/O colonoscopy (Acute) H/O lumpectomy (Acute) H/O: (Acute) History of (Acute) History of carpal tunnel release (Acute) History of carpal tunnel release of both wrists (Acute) History of lumpectomy of right breast (Acute) Family History Mother Diabetes Bleeding disorder High cholesterol Cancer Heart disease Hypertension Melanoma Father Alcoholism Sister Colon cancer Diabetes Brother Diabetes Social History (Updated 11/27/19 @ 07:45 by KEYON Thompson) Smoking Status: Never smoker second hand exposure: No alcohol intake: current substance use type: does not use HPI HPI Chief Complaint: Right knee pain Details: CIRILO CEBALLOS, is a 54 F who presents to the office today for evaluation of right knee pain. Patient notes 5 days ago stepping into her truck and noticing immediate popping sensation with pain to her right knee. On 11/22/2019, patient reported to her primary care physician who gave her a localized corticosteroid injection with symptoms improving until yesterday with recurrent complaints of moderate severe aching and popping sensation to the same. No history of traumatic blow to the same. No complaints of right hip or right ankle pain. Pain is aggravated upon attempt to fully extend alleviated with mild flexion and nonweightbearing. She notes the pain is more prominent to the medial aspect of the right knee. She notes no giving way of the same. No prior history of injuries or surgeries to her right knee prior to above-described incident. No other associated symptoms and no other alleviating or aggravating factors. ROS Const Constitutional: No other (ROS negative x14 other than as noted above) Exam Const General: cooperative, healthy appearing, uncomfortable, no acute distress Nutritional Appearance: average body habitus Orientation: alert, awake, oriented x3 Resp Effort Inspection: normal respiratory effort, able to speak in complete sentences, symmetric chest movement Cardio Rate: regular rate Pulses: radial pulses present [facility] Musculoskeletal: Yes joint tenderness and decreased ROM (Right knee: Positive Kely, negative drawer, medial patellar gutter palpable tenderness); no joint redness or joint warmth Skin General: no rashes or lesions noted Neuro General: alert, awake, oriented x3, gait normal Cognition: normal cognition Speech: speech normal Gait: normal gait Motor: muscle tone normal throughout Sensory Exam: no sensory deficits noted Extrem General: normal to inspection (Except as noted in [facility] exam above), abnormal ROM, capillary refill delayed, no joint enlargement noted, other (Right knee radiographs not taken as radiology not available at time of exam) Psych Appearance: grossly normal Mental Status: mental status grossly normal Mood: congruent mood Affect: normal affect Speech and Movement: speech and movement normal Attitude: cooperative Thought Process: normal Thought Content: normal Judgment: judgment good Assessment Plan Problems 1. Internal derangement of right knee M23.91 2. Strain of right knee S86.911A Plan Right knee radiographs not taken today as radiology not available at time of exam. Rest, ice, Tylenol as needed for symptomatic relief. Neville wrap and crutches as dispensed/instructed today. Cyclobenzaprine to be taken as prescribed today as needed. Work excuse provided. Follow-up with [facility] first available appointment. Patient states acknowledging understanding all the above. This note was generated with [employer] dictation software. It may contain incorrect words, spelling, and punctuation that were not noted in checking the note before signing. Medications New: cyclobenzaprine 10 mg PO TID PRN 20 tabs 0RF muscle spasm Coding Level of Care Code Off vis,new,level 3 Diagnoses Internal derangement of right knee M23.91 Strain of right knee S86.911A 11/27/19 0745 <Electronically signed by Demarcus TA> Date Demarcus TA Cosigner Signature: Date (if applicable) CC: Cecy Alarcon Start: 09-09-2019 End: 09-09-2019 Endocrinology Visit Report Comments: See Note; NOTES: [facility] [address] [place] [address]. [address] [place] [address] OFFICE VISIT Date of Service: 09/09/19 MR#: [id number] Acct: [id number] Name: CIRILO CEBALLOS TERRIE Rep #: [id number] : 1965 Provider: Remberto Lubin MD Age/Sex: 54/F Location: [facility] [place] Status: Signed Intake Vital Signs09/09/19 BMI 25.7 09/09/19 Height 5 ft 2 in Intake Visit Reasons: Diabetes follow-up Chief Complaint: diabetes Allergies No Known Allergies Allergy (Verified 09/09/19 09:59) Medications loratadine 10 mg tablet 10 mg PO QDAY 06/26/17 [History Confirmed 09/09/19] multivitamin 1 cap PO QAM 06/26/17 [History Confirmed 09/09/19] lisinopril 20 mg tablet 20 mg PO QDAY #90 tab 03/21/18 [Rx Confirmed 09/09/19] FreeStyle Antonieta 14 Day [place] See Dose Instructions .ROUTE .MEDSUPPLY #1 ea NS 07/16/18 [Rx Confirmed 09/09/19] atorvastatin 20 mg tablet 20 mg PO QDAY #90 tab 10/02/18 [Rx Confirmed 09/09/19] ascorbate calcium (vitamin C) 500 mg tablet 500 mg PO DAILY 11/08/19 [History Confirmed 09/09/19] insulin degludec 100 unit/mL (3 mL) subcutaneous pen 18 unit SC DAILY ml 05/24/19 [History Confirmed 09/09/19] flash glucose sensor See Rx Instructions .ROUTE .MEDSUPPLY #6 ea 06/14/19 [Rx Confirmed 09/09/19] insulin lispro 200 unit/mL (3 mL) subcutaneous pen 15 unit SC TID #18 ml 07/02/19 [Rx Confirmed 09/09/19] levothyroxine 75 mcg tablet 75 mcg PO DAILY #90 tab 07/02/19 [Rx Confirmed 09/09/19] pen needle, diabetic 32 gauge x See Rx Instructions .ROUTE .MEDSUPPLY #400 ea 08/22/19 [Rx Confirmed 09/09/19] [facility] Social History (Updated 09/09/19 @ 10:[address] Remberto Lubin MD) Smoking Status: Never smoker second hand exposure: No alcohol intake: current substance use type: does not use HPI HPI Chief Complaint: diabetes Details: CIRILO CEBALLOS, is a 54 F who presents to the office today for follow up of diabetes and Hashimotos. Tresiba 16 units, Humalog 1:8, 1:40 > 140 She is tearful. Overwhelmed by diabetes and life. Blood sugars looked improved over the past 2 weeks with A1C prediction of 8.1% A1C is actually 9.3% which means blood sugar improvement is recent. She complains of right heel pain. ROS Const Constitutional: No excessive sweating, fatigue, fever(s), headache(s), malaise, night sweats, weakness, weight change or abnormal sleep pattern Eyes Eyes: No blurry vision ENT ENT: No tinnitus, dizziness/vertigo, headache(s), difficulty swallowing, hoarseness, neck pain or sore throat Resp Respiratory: No cough or shortness of breath Cardio Cardiology: No chest pain at rest, chest pain with exertion, excessive sweating, shortness of breath, dyspnea on exertion, generalized swelling, irregular heart rhythm, lightheadedness, fast heart rate or palpitations Gastro GI: No abdominal pain, change in bowel habits, constipation, diarrhea, heartburn or difficulty swallowing Musc Musculoskeletal: Positive for other (heel pain); no joint pain, back pain, joint swelling, muscle cramps, muscle weakness, neck pain, numbness or tingling Skin Skin: No lesions or rash Neuro Neurology: No abnormal speech, behavioral changes, confusion, unsteady gait/balance, dizziness, weakness, headache(s), memory loss, numbness, tingling or fainting Psych Psychiatric: No abnormal sleep pattern, Positive for anxiety, No behavioral changes, No confusion, No depression, No difficulty concentrating, No memory loss, No Thoughts of harming yourself/Others Endo Endocrine: No cold intolerance, excessive sweating, fatigue, flushing, heat intolerance, increased thirst/drinking or increased urination Aller/Imm Allergy/Immunologic: No seasonal allergy symptoms Ciaran/Lymp Hematologic/Lymphatic: No easy bleeding, easy bruising or enlarged lymph nodes Exam Const General: cooperative, healthy appearing, comfortable, no acute distress Nutritional Appearance: well nourished Orientation: alert, awake, oriented x3 HENMT Head: normocephalic, atraumatic Ears: hearing grossly normal bilaterally, external ears normal Nose: external nose normal Face and sinus: normal facial exam Mouth: oral mucosae normal Eyes General: appearance normal, both eyes and all related structures Pupils: PERRL EOM: EOM intact bilaterally Neck Neck: normal visual inspection, no lymphadenopathy Neck mass: No Thyroid: thyroid normal Carotids: no bruits Chest Chest palpation AND inspection: normal inspection of the chest Resp Effort AND Inspection: normal respiratory effort, able to speak in complete sentences Auscultation: Bilateral: Clear to Auscultation Cardio Rate: regular rate Rhythm: regular rhythm Heart Sounds: S1 normal, S2 normal Pulses: posterior tibial pulses present, dorsalis pedis pulses present GI Palpation: soft, no hepatosplenomegaly Musc Musculoskeletal: No muscle weakness Other: right heel tender to palpation along the medial edge and achilles tendon. Skin General: no erythema Lesions: other (no lipohypertophy) Neuro General: gait normal, CN's II-XI intact bilaterally Cognition: normal cognition Speech: speech normal Gait: normal gait Extrem General: no edema Psych Appearance: well kempt Mood: congruent mood Affect: normal affect Speech and Movement: speech and movement normal Attitude: cooperative Thought Process: normal Thought Content: normal Assessment AND Plan 1. Type 1 diabetes mellitus with hyperglycemia E10.65 Plan Diabetes education provided. Encouragement given. Elayne 18 units 1:6; 1:30 > 130 Please send in glucose log 2. 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 Then wait 30-60 minutes before consuming any other food or beverage, especially coffee. Separate levothyroxine from vitamins by at least 4 hours. Stop taking any biotin supplement 4 days prior to having labs drawn. 3. Thyroid nodule E04.1 Plan Repeat ultrasound later this year, may shrink on LT4 4. Pain of right heel M79.671 Plan I offered her referral to PT or to podiatry. She will think about it and let me know. 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.8; E06.3 Thyroid nodule E04.1 Pain of right heel M79.671 Laterality: right 09/09/19 1036 <Electronically signed by Remberto Lbuin MD> Date Remberto Lubin MD Cosigner Signature: Date (if applicable) CC: STROKE COORDINATORSung Melyssa Alarcon Start: 06-10-2019 End: 06-10-2019 Office Visit Report Comments: See Note; NOTES: [facility] [place] [address] OFFICE VISIT Date of Service: 06/10/19 MR#: [id number] Acct: [id number] Patient: CIRILO CEBALLOS TERRIE Rep #: [id number] : 1965 Provider: Remberto Lubin MD Age/Sex: 54/F Location: [facility] [place] Status: Signed Intake Vital Signs06/10/19 Height 5 ft 2 in 06/10/19 Weight: 142 lb 6 oz 06/10/19 Body Mass Index (BMI) 26.0 06/10/19 Blood Pressure 120/80 06/10/19 Respiratory Rate 16 06/10/19 Pulse Rate 75 Intake Visit Reasons: Diabetes Mellitus Type 1 Chief Complaint: diabetes 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: No Accompanied by: Self Allergies No Known Allergies Allergy (Verified 06/10/19 10:07) Medications loratadine 10 mg tablet 10 mg PO QDAY 06/26/17 [History Confirmed 06/10/19] multivitamin capsule 1 cap PO QAM 06/26/17 [History Confirmed 06/10/19] lisinopril 20 mg tablet 20 mg PO QDAY #90 tab 03/21/18 [Rx Confirmed 06/10/19] FreeStyle Antonieta 14 Day [place] See Dose Instructions .ROUTE .MEDSUPPLY #1 ea NS 07/16/18 [Rx Confirmed 06/10/19] insulin lispro (U-200) 200 unit/mL (3 mL) subcutaneous pen See Rx Instructions SC QAM #3 ml 07/16/18 [Rx Confirmed 06/10/19] atorvastatin 20 mg tablet 20 mg PO QDAY #90 tab 10/02/18 [Rx Confirmed 06/10/19] ascorbate calcium (vitamin C) 500 mg tablet 500 mg PO DAILY 05/24/19 [History Confirmed 06/10/19] insulin degludec (U-100) 100 unit/mL (3 mL) subcutaneous pen 18 unit SC DAILY ml 05/24/19 [History Confirmed 06/10/19] levothyroxine 75 mcg tablet 75 mcg PO DAILY #30 tab 06/10/19 [Rx Confirmed 06/10/19] [facility] Medical History Diabetes type 1, controlled (Acute) Hyperlipidemia (Acute) Hypothyroidism (Acute) Thyroid nodule (Acute) Surgical History H/O colonoscopy (Acute) H/O lumpectomy (Acute) H/O: (Acute) History of (Acute) History of carpal tunnel release (Acute) History of carpal tunnel release of both wrists (Acute) History of lumpectomy of right breast (Acute) Family History Mother Diabetes Bleeding disorder High cholesterol Cancer Heart disease Hypertension Melanoma Father Alcoholism Sister Colon cancer Diabetes Brother Diabetes Social History (Updated 06/10/19 @ 11:58 by Remberto Lubin MD) Smoking Status: Never smoker second hand exposure: No alcohol intake: current substance use type: does not use HPI HPI Chief Complaint: diabetes Details: CIRILO CEBALLOS, is a 54 F who presents to the office today for evaluation and management of diabetes type 1 and thyroid nodule. She was diagnosed with diabetes in 2010. Large family history: mother, maternal grandmother, brother and sisiter. Last eye exam June,, no proteinuria, no neuropathy. She takes atorvastatin for hyperlipidemia and lisinopril for hypertension. She does not carb count. She does not take insulin for snacks. If she doesn't eat a snack at bedtime, her blood sugar drops overnight. She sees Dr. Miguel for a thyroid nodule. Last year it was 9 mm. She is tearful during the appointment. The patient is checking their blood sugar 4 times per day using Antonieta CGM The patient is taking insulin 3 or more times per day. The patient requires frequent testing in order to adjust insulin dosing. The patient is at risk for hypoglycemia. ROS Const Constitutional: No excessive sweating, fatigue, fever(s), headache(s), malaise, night sweats, weakness, weight change or abnormal sleep pattern Eyes Eyes: No blurry vision ENT ENT: No tinnitus, dizziness/vertigo, headache(s), difficulty swallowing, hoarseness, neck pain or sore throat Resp Respiratory: No cough or shortness of breath Cardio Cardiology: No chest pain at rest, chest pain with exertion, excessive sweating, shortness of breath, dyspnea on exertion, generalized swelling, irregular heart rhythm, lightheadedness, fast heart rate or palpitations Gastro GI: No abdominal pain, change in bowel habits, constipation, diarrhea, heartburn or difficulty swallowing Musc Musculoskeletal: No joint pain, back pain, joint swelling, muscle cramps, muscle weakness, neck pain, numbness or tingling Skin Skin: No lesions or rash Neuro Neurology: No abnormal speech, behavioral changes, confusion, unsteady gait/balance, dizziness, weakness, headache(s), memory loss, numbness, tingling or fainting Psych Psychiatric: No abnormal sleep pattern, No behavioral changes, No confusion, No depression, No difficulty concentrating, No memory loss, No Thoughts of harming yourself/Others Endo Endocrine: No cold intolerance, excessive sweating, fatigue, flushing, heat intolerance, increased thirst/drinking or increased urination Aller/Imm Allergy/Immunologic: No seasonal allergy symptoms Ciaran/Lymp Hematologic/Lymphatic: No easy bleeding, easy bruising or enlarged lymph nodes Exam Const General: cooperative, healthy appearing, comfortable, no acute distress Nutritional Appearance: obese Orientation: alert, awake, oriented x3 HENMT Head: normocephalic, atraumatic Ears: hearing grossly normal bilaterally, external ears normal Nose: external nose normal Face and sinus: normal facial exam Mouth: oral mucosae normal Eyes General: appearance normal, both eyes and all related structures Pupils: PERRL EOM: EOM intact bilaterally Neck Neck: normal visual inspection, no lymphadenopathy Neck mass: No Thyroid: diffusely enlarged (I do not fell the nodule) Carotids: no bruits Chest Chest palpation AND inspection: normal inspection of the chest Resp Effort AND Inspection: normal respiratory effort, able to speak in complete sentences Auscultation: Bilateral: Clear to Auscultation Cardio Rate: regular rate Rhythm: regular rhythm Heart Sounds: S1 normal, S2 normal Pulses: posterior tibial pulses present, dorsalis pedis pulses present GI Palpation: soft, no hepatosplenomegaly Musc Musculoskeletal: No muscle weakness Skin General: no erythema Lesions: other (no lipohypertophy) Neuro General: gait normal, CN's II-XI intact bilaterally Cognition: normal cognition Speech: speech normal Gait: normal gait Sensory Exam: lower extremity (vibratory, temperature and light touch intact bilaterally) Extrem General: no edema Psych Appearance: well kempt Mood: congruent mood Affect: normal affect Speech and Movement: speech and movement normal Attitude: cooperative Thought Process: normal Thought Content: normal Results POCA1C POC A1C 9.3 % Last Edit by Helga Willingham on 06/10/19 10:19 Assessment AND Plan 1. Type 1 diabetes mellitus with hyperglycemia E10.65 Plan Diabetes education provided. I instructed her on carb counting and correction factor. Decrease Tresiba to 16 units. Start 1:8 carb counting and 1:40 > 140 correction factor. Link [employer] account with me and download weekly. I reviewed with the patient the risk of developing and worsening of diabetes complications including retinopathy, neuropathy, nephropathy, heart attack, stroke, amputation, and sudden . Patient has had adverse reaction to treatment. Today's assessment includes a review of lab work. Today's assessment includes review of a glucose log. Discussed with patient and provided information. Complicated level of decision making due to multiple problems and possible medication interactions. I reviewed with the patient the high likelihood of complications and morbidity of uncontrolled diabetes and hypoglycemia. 2. Thyroid nodule E04.1 Plan Likely Hashimotos. Start levothyroxine 75 mcg daily. Check labs in 2 months. Recheck ultrasound in 4-6 months. Orders Orders: 3. Essential (primary) hypertension I10 Plan Controlled, please continue current medications. 4. Mixed hyperlipidemia E78.2 Plan Check labs. Continue current medication Orders Orders: 5. Overweight (BMI 25.0-29.9) E66.3 Plan Near normal weight. Nutritional counseling provided, avoid flour, sugar, and artificial sweeteners. Plan Detail Other Orders Orders: Other Medications New: Coding Level of Care Code Off vis,est,level 5 Diagnoses Type 1 diabetes mellitus with hyperglycemia E10.65 Diabetes mellitus type: type 1 Diabetes mellitus complication status: with hyperglycemia Thyroid nodule E04.1 Essential (primary) hypertension I10 Mixed hyperlipidemia E78.2 Overweight (BMI 25.0-29.9) E66.3 Time Spent (min) 40 >50% spent diabetes education/counseling 06/10/19 1158 <Electronically signed by Remberto Lubin MD> Date Remberto Lubin MD Cosigner Signature: Date (if applicable) CC: ELEANOR Melyssa Alarcon Start: 02-26-2019 End: 02-27-2019 SCREEN MAMM (CAD) W/ALFONZO WHITMAN Comments: See Note; NOTES: [facility] Imaging Services [address] [place] [address] SCREEN MAMM (CAD) W/ALFONZO BILAT MR#: [id number] Acct: [id number] Name: CIRILO CEBALLOS Rep #: [id number] : 1965 F 54 From: Jorge Santizo MD PCP: Melyssa Dowd STROKE COORDINATOR-C Status: REG CLI Study: SCREEN MAMM (CAD) W/ALFONZO BILAT Date of Exam: 02/26/19 Exam# [id number] Ordering Dr: Cecy Alarcon DO MAMMOGRAPHY - BILATERAL SCREENING REASON FOR EXAM: Female, 54 years old. Routine annual screening examination. PERTINENT HISTORY: Non-contributory. TECHNIQUE: Digital bilateral breast alfonzo (3D mammographic acquisition) in the CC and MLO projections. 2-D mediolateral oblique (MLO) and craniocaudad (CC) views of both breasts were obtained. CAD: Full Field Digital Mammography with Computer Added Detection was performed. COMPARISON: No comparison mammograms available at this time. If any prior films become available, an addendum to this report can be generated. FINDINGS: Breast Composition: The breasts are heterogeneously dense, which may obscure small masses. There are no dominant masses or suspicious calcifications. Small benign-appearing left axillary lymph nodes. No other significant abnormalities are identified. BI/SCREEN MAMM (CAD) W/ALFONZO BILAT IMPRESSION: Negative screening mammogram. Yearly followup mammogram recommended. (A) ASSESSMENT CATEGORY: BIRADS Category 2: Benign. A letter regarding these results will be sent to the patient by the facility within 30 days. Approximately 10% of breast cancers are not detected by mammography. A normal mammogram should not delay biopsy of a clinically suspicious abnormality. [id number] Electronically Signed: Jorge Santizo, at 8:49 EDT , Service support , CC: ELEANOR Dowd; Cecy Alarcon DO Supervisor Die Casting: Signed Cecy Alarcon Work Phone: Start: 11-22-2018 End: 11-22-2018 Surgery Visit Report Comments: See Note; NOTES: [facility] [address] [place] [address] OFFICE VISIT Date of Service: 11/22/18 MR#: [id number] Acct: [id number] Name: CIRILO CEBALLOS Rep #: [id number] : 1965 Provider: Sabino Miguel MD Age/Sex: 53/F Location: [facility] Status: Signed Intake Intake Visit Reasons: 1 WK F/U C-SCOPE 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: No Is patient in pain?: No Allergies No Known Allergies Allergy (Verified 11/22/18 13:05) Medications loratadine 10 mg tablet 10 mg PO QDAY 06/26/17 [History Confirmed 11/22/18] multivitamin capsule 1 cap PO QAM 06/26/17 [History Confirmed 11/22/18] lisinopril 20 mg tablet 20 mg PO QDAY #90 tab 03/21/18 [Rx Confirmed 11/22/18] FreeStyle Antonieta 14 Day [place] See Dose Instructions .ROUTE .MEDSUPPLY #1 ea NS 07/16/18 [Rx Confirmed 11/22/18] insulin lispro (U-200) 200 unit/mL (3 mL) subcutaneous pen See Rx Instructions SC QAM #3 ml 07/16/18 [Rx Confirmed 11/22/18] insulin detemir (U-100) 100 unit/mL (3 mL) subcutaneous pen 13 unit SC BID #9 ml 07/30/18 [Rx Confirmed 11/22/18] atorvastatin 20 mg tablet 20 mg PO QDAY #90 tab 10/02/18 [Rx Confirmed 11/22/18] Subjective Details: Patient is status post a colonoscopy on 11/14/2018 for screening. Patient was noted to have a polyp of the ascending colon and the pathology report came back as an inflammatory polyp with ulcerations, acute inflammation, and regenerative changes. Patient is not having any abdominal pain. It did take a while for her to have bowel movements. Objective Details: Abdomen is soft and nontender Assessment AND Plan Problems 1. Colon polyp K63.5 Plan Patient will need to have another colonoscopy in 3 years area Coding Level of Care Code Off vis,est,level 2 Diagnoses Colon polyp K63.5 11/22/18 1338 <Electronically signed by Sabino Miguel MD> Date Sabino Miguel MD Cosigner Signature: Date (if applicable) CC: STROKE COORDINATOR Melyssa Dowd Cecy Alarcon Start: 11-14-2018 End: 11-14-2018 Operative Report - Endoscopy Comments: See Note; NOTES: [facility] Medical Records Department [address] [place] [address] Operative Report - Endoscopy MR#: [id number] Acct: [id number] Name: CIRILO CEBALLOS TERRIE Rep #: [id number] : 1965 53 From: Sabino Miguel MD PCP: Melyssa Dowd NP Status: REG [facility] 11/14/2018 Melyssa Dowd NP [address] [place] [address] Re : Colonoscopy procedure for Cirilo Ceballos Dear Ms. Dowd This procedure was performed on Wednesday, November 14, 2018. My impressions and recommendations are as follows: Impressions : - Preparation of the colon was fair. - One 5 mm polyp in the ascending colon, removed with a hot snare. Resected and retrieved. - Diverticulosis in the sigmoid colon. No specimens collected. - The examination was otherwise normal on direct and retroflexion views. Recommendations : - Discharge patient to home. - Resume previous diet. - Continue present medications. - Await pathology results. - Repeat colonoscopy in 3 years for surveillance. - Return to my office in 1 week. My findings are described in the full procedure note, which is enclosed. If I can be of further assistance, please feel free to contact me at Doctor phone number(s): , Fax: [phone], Work: . Sincerely, MD Sabino Christensen MD 11/14/2018 7:30:54 AM This report has been signed electronically. 11/14/18729 Date Sabino Miguel MD Cosigner Signature: Date (if indicated) CC: STROKE COORDINATOR Melyssa Dowd; Sabino Miguel MD Date Dictated: 11/14/18645 Date Transcribed: Supervisor Die Casting: DP Signed Cecy Alarcon Start: 11-14-2018 End: 11-14-2018 History and Physical Exam Comments: See Note; NOTES: [facility] Medical Records Department [address] [facility] [place] [address] History and Physical 11/14/18702 MR#: [id number] Acct: [id number] Name: CIRILO CEBALLOS TERRIE Rep #: [id number] : 1965 53 From: Sabino Miguel MD PCP: Melyssa Dowd NP Status: REG [facility] Y Location: [place] [address] Problem List (1) Colon cancer screening Status: Acute History of Present Illness Date of Admission: 11/14/18 CIRILO CEBALLOS, is a 53 F who presents to the office today for for evaluation of 2 problems. Patient has a known history of multinodular goiter. She had a most recent ultrasound completed a [facility] on 07/03/2018 that showed a 9 mm nodule in the right lobe. Left lobe did not notice any demonstratable solid or cystic lesions but it did have a inferior located calcification. It was similar in the previous ultrasound. She has had no difficulty swallowing she has had no neck pain. She has never had a thyroid biopsy. The patient has never had a colonoscopy. She states that she moves her bowels regularly and has had no abdominal pain. She has not noticed any hematochezia or melena. She states that her mother did have a colonoscopy and numerous polyps were identified Past Medical History Past Medical History (Chronic Problems): Chronic Problems (Last Reviewed 10/08/18 @ 13:41 by Sabino Miguel MD) diabetes type 1 uncontrolled with longterm insulin (Chronic) Hypothyroidism (acquired) (Chronic) Ultra sound notes 8mm nodule and 2mm calcification. Pt not feeling any difficulty with swallowing at todays visit Medical History: Medical History (Last Reviewed 11/14/18 @ 07:04 by Sabino Miguel MD) Diabetes type 1, controlled E10.9 dx : 10/25 last exacerbation : dka : never hypoglycemic episode : never er visit : never Diabetes type 1, controlled E10.9 Hypothyroid E03.9 Hypothyroidism E03.9 Allergies No Known Allergies Allergy (Verified 11/12/18 10:24) Home Medications: Ambulatory Orders Medication Instructions Recorded loratadine 10 mg tablet 10 mg PO QDAY 06/26/17 multivitamin capsule 1 cap PO QAM 06/26/17 lisinopril 20 mg tablet 20 mg PO QDAY #90 tab 03/21/18 Surgical History: Surgical History (Last Reviewed 11/14/18 @ 07:04 by Sabino Miguel MD) H/O lumpectomy Z98.890 H/O: Z98.891 History of Z98.891 History of carpal tunnel release Z98.890 History of carpal tunnel release of both wrists Z98.890 History of lumpectomy of right breast Z98.890, Z90.11 Smoking Status: Never smoker Tobacco Use: Non-smoker Review of Systems Constitutional: Denies: Chills, Fever, Weight Change Cardiovascular: Denies: Chest Pain, Chest Pressure, Chest Tightness, Palpitations Respiratory: Denies: Cough, Hemoptysis, Shortness of breath at rest, Shortness of breath upon exertion, Wheezing Gastrointestinal: Denies: Abdominal Pain, Constipation, Diarrhea, Hematemesis, Nausea, Melena, Vomiting Genitourinary: Denies: Dysuria, Frequency, Hematuria, Urgency VTE Information - Inpt Only VTE Present on Admission: No VTE Mechan Device Prophylaxis: None VTE Pharm Prophylaxis ordered?: No Reason prophylaxis not ordered:: Treatment Not Indicated Patient Problems: Active and Suspected Problems (Last Reviewed 10/08/18 @ 13:41 by Sabino Miguel MD) Colon cancer screening (Acute) - Physical Exam General: Alert, Oriented x3 Lungs: Clear to auscultation Cardiovascular: Regular rate, Regular Rhythm, No murmurs Abdomen: Bowel Sounds Present, Soft, Non Tender, Non-Distended Vital Signs Temp Pulse Resp BP Pulse Ox 97.3 F L 72 16 117/59 L 100 11/14/18 06:26 11/14/18 06:26 11/14/18 06:26 11/14/18 06:26 11/14/18 06:26 Oxygen Delivery Method Room Air Weight: 140 lb 10.479 oz Body Mass Index (BMI) 25.7 Assessment/Plan All Active Problems (Last Reviewed 10/08/18 @ 13:41 by Sabino Miguel MD) Colon cancer screening (Acute) Difficulty swallowing solids (Acute) Irregular menstrual bleeding (Acute) Endometrial thickening on ultra sound (Acute) Endometrial polyp (Acute) Plan is to perform a colonoscopy on the patient. 11/14/18 0705 <Electronically signed by Sabino Miguel MD> Date Sabnio Miguel MD Cosigner Signature: Date (if applicable) CC: KAREN Dowd; Sabino Miguel MD Signed Cecy Alarcon Start: 10-19-2018 End: 10-19-2018 History and Physical Exam Comments: See Note; NOTES: [facility] Medical Records Department [address] [place] [address] History and Physical 10/08/18 1343 MR#: [id number] Acct: [id number] Name: CIRILO CEBALLOS Rep #: [id number] : 1965 53 From: Sabino Miguel MD PCP: Cecy Alarcon DO Status: PRE [facility] Location: [facility]#: [id number] Acct: [id number] Name: CIRILO CEBALLOS Rep #: [id number] : 1965 Provider: Sabino Miguel MD Age/Sex: 53/F Location: [facility] Status: Signed Intake Vital Signs 10/08/18 Body Mass Index (BMI) 26.4 10/08/18 Height 5 ft 2 in 10/08/18 Weight: 146 lb 10/08/18 Body Mass Index (BMI) 26.6 10/08/18 Blood Pressure 151/82 H 10/08/18 Blood Pressure Location Rt brachial Intake Visit Reasons: Thyroid Nodules/US [facility] 06/2018 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: No Is patient in pain?: No Allergies No Known Allergies Allergy (Verified 10/08/18 13:18) Medications Lactobacillus acidophilus capsule 10 mg PO QDAY 06/26/17 [History Confirmed 10/08/18] loratadine 10 mg tablet 10 mg PO QDAY 06/26/17 [History Confirmed 10/08/18] multivitamin capsule 1 cap PO QAM 06/26/17 [History Confirmed 10/08/18] pen needle, diabetic 31 gauge x 11/29 See Dose Instructions .ROUTE .MEDSUPPLY #150 ea 06/27/17 [Rx Confirmed 10/08/18] FreeStyle Welch Lite kit See Dose Instructions .ROUTE .MEDSUPPLY #1 ea NS 11/06/17 [Rx Confirmed 10/08/18] FreeStyle Lancets 28 gauge See Dose Instructions .ROUTE .MEDSUPPLY #100 ea NS 11/06/17 [Rx Confirmed 10/08/18] FreeStyle Lite Strips See Dose Instructions .ROUTE .MEDSUPPLY #150 ea NS 11/06/17 [Rx Confirmed 10/08/18] lisinopril 20 mg tablet 20 mg PO QDAY #90 tab 03/21/18 [Rx Confirmed 10/08/18] flash glucose scanning reader See Dose Instructions .ROUTE .MEDSUPPLY #1 ea 04/04/18 [Rx Confirmed 10/08/18] flash glucose sensor kit See Dose Instructions .ROUTE .MEDSUPPLY #3 ea 04/04/18 [Rx Confirmed 10/08/18] flash glucose sensor kit See Dose Instructions .ROUTE .MEDSUPPLY #2 ea 07/02/18 [Rx Confirmed 10/08/18] FreeStyle Antonieta 14 Day [place] See Dose Instructions .ROUTE .MEDSUPPLY #1 ea NS 07/16/18 [Rx Confirmed 10/08/18] insulin lispro (U-200) 200 unit/mL (3 mL) subcutaneous pen See Rx Instructions SC QAM #3 ml 07/16/18 [Rx Confirmed 10/08/18] insulin detemir (U-100) 100 unit/mL (3 mL) subcutaneous pen 13 unit SC BID #9 ml 07/30/18 [Rx Confirmed 10/08/18] BD Ultra-Fine Viviana Pen Needle 32 gauge x 32 See Dose Instructions .ROUTE .MEDSUPPLY #150 ea NS 08/20/18 [Rx Confirmed 10/08/18] atorvastatin 20 mg tablet 20 mg PO QDAY #90 tab 10/02/18 [Rx Confirmed 10/08/18] [facility] Medical History Diabetes type 1, controlled (Acute) [...] substance use type: does not use ROS General General: Yes fatigue; no weight change, appetite, colon cancer, breast cancer or weakness HEENT HEENT: Yes difficulty swallowing; no eye injury, eye surgery, swollen glands or hoarseness Endo Endocrine: Yes thyroid disease and diabetes mellitus; no thyroid cancer, Hair loss, heat intolerance or cold intolerance Skin Skin: No rash or changing moles Breast Breast: No left breast lump, right breast lump, nipple discharge, breast pain, abnormal mammogram, abnormal US or breast enlargement Musc Musculoskeletal: No back problems, arthritis, rheumatoid arthritis, gout or joint pain Cardio Cardiovascular: Yes high blood pressure; no murmur, pacemaker, heart disease, atrial fibrillation, heart attack, heart stent, palpitations, shortness of breat with exertion or chest pain Psych Psychiatric: Yes anxiety; no depression or hearing voices Resp Respiratory: No shortness of breath, No sleep apnea, Yes cough, No COPD, No asthma, No emphysema, No wheezing Gastro Gastrointestinal: No abdominal pain, No nausea or vomiting, No diarrhea, No constipation, No blood in stool, No acid reflux, No hemorrhoids, No ulcers, No gallbladder problem, No black,tarry stools Ciaran Hematologic: No blood thinners, No blood disorders, No bleeding, No anemia, No blood clots Neuro Neurologic: No system reviewed and no additional complaints, except as docu, No as per HPI, No abnormal walking, No abnormal hearing, No abnormal movements, No abnormal speech, No behavioral changes, No burning sensations, No confusion, No seizure-like activity, No unsteadiness, No dizziness, No localized weakness, No frequent falls, No headache(s), No lack of coordination, No loss of vision, No memory loss, No numbness, No other visual disturbances, No radiating pain, No restless legs, No sensory deficit, No fainting, No tingling, No tremor(s), No weakness, No other Exam Const General: no acute distress, well developed, well hydrated Orientation: oriented to person, oriented to place, oriented to time [facility] Head: normocephalic, atraumatic Ears: external ears normal Mouth: moist mucous membranes Other: No hard nodules are identified within the thyroid itself. There is no lymphadenopathy bilaterally there is no neck tenderness noted bilaterally Eyes Sclera: sclerae normal Pupils: normal by confrontation Neck Neck: no lymphadenopathy noted Neck mass: No Thyroid: thyroid normal, symmetrical Chest Chest palpation AND inspection: normal inspection of the chest Breast Palpation: No nipple discharge Resp Effort AND Inspection: normal respiratory effort Auscultation: clear to auscultation bilaterally Percussion: percussion normal Cardio Rate: regular rate Rhythm: regular rhythm Heart Sounds: no murmurs GI Palpation: soft, no hepatosplenomegaly, no masses, nontender Rectal Exam: other Other: Rectal exam deferred. Extrem General: normal to inspection, no clubbing, cyanosis or edema Assessment AND Plan Problems 1. Multinodular goiter (nontoxic) E04.2 2. Screening for colon cancer Z12.11 Plan At the present time I do not believe the patient needs to have any final L aspirations done to her thyroid gland. I believe a yearly thyroid ultrasound would be warranted if the nodule is larger than 1 cm at that time and we will entertain the thought of performing a fine-needle aspiration. The patient does however need to have a colonoscopy. . I have offered the patient colonoscopy for evaluation. I have explained the risks/benefits of the procedure and described the procedure. I have discussed the risks with the patient, including but not limited to: infection, bleeding, perforation of the GI tract requiring emergency surgery, inability to complete the procedure, injury to any internal organs, complications of anesthesia, etc. - the patient understands and agrees to proceed. I have answered all the patient's questions to the patient's satisfaction and the patient has no further questions. The patient has been given instructions for the colon cleansing preparation. Coding Level of Care Code Off vis,new,level 3 Diagnoses Multinodular goiter (nontoxic) E04.2 Screening for colon cancer Z12.11 10/19/18 1349 <Electronically signed by Sabino Miguel MD> Date: Time: Sabino Miguel MD CC: Sabino Miguel MD; Cecy Alarcon DO Date Dictated: 10/08/18 1343 Date Transcribed: 10/08/18 1533 Supervisor Die Casting: Signed ____ I have re-examined the patient. There are no clinical changes since date of exam. ____ See Progress Notes for Changes ____ Dictated on Admission Date: Time: Signature: Cecy Alarcon Start: 10-19-2018 End: 10-19-2018 Surgery Visit Report Comments: See Note; NOTES: [facility] [address] [place] [address] OFFICE VISIT Date of Service: 10/08/18 MR#: [id number] Acct: [id number] Name: CIRILO CEBALLOS Rep #: [id number] : 1965 Provider: Sabino Miguel MD Age/Sex: 53/F Location: [facility] Status: Signed Intake Vital Signs10/08/18 Body Mass Index (BMI) 26.4 10/08/18 Height 5 ft 2 in 10/08/18 Weight: 146 lb 10/08/18 Body Mass Index (BMI) 26.6 10/08/18 Blood Pressure 151/82 H 10/08/18 Blood Pressure Location Rt brachial Intake Visit Reasons: Thyroid Nodules/US [facility] 06/2018 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: No Is patient in pain?: No Allergies No Known Allergies Allergy (Verified 10/08/18 13:18) Medications Lactobacillus acidophilus capsule 10 mg PO QDAY 06/26/17 [History Confirmed 10/08/18] loratadine 10 mg tablet 10 mg PO QDAY 06/26/17 [History Confirmed 10/08/18] multivitamin capsule 1 cap PO QAM 06/26/17 [History Confirmed 10/08/18] pen needle, diabetic 31 gauge x 5/16 See Dose Instructions .ROUTE .MEDSUPPLY #150 ea 06/27/17 [Rx Confirmed 10/08/18] FreeStyle Welch Lite kit See Dose Instructions .ROUTE .MEDSUPPLY #1 ea NS 11/06/17 [Rx Confirmed 10/08/18] FreeStyle Lancets 28 gauge See Dose Instructions .ROUTE .MEDSUPPLY #100 ea NS 11/06/17 [Rx Confirmed 10/08/18] FreeStyle Lite Strips See Dose Instructions .ROUTE .MEDSUPPLY #150 ea NS 11/06/17 [Rx Confirmed 10/08/18] lisinopril 20 mg tablet 20 mg PO QDAY #90 tab 03/21/18 [Rx Confirmed 10/08/18] flash glucose scanning reader See Dose Instructions .ROUTE .MEDSUPPLY #1 ea 04/04/18 [Rx Confirmed 10/08/18] flash glucose sensor kit See Dose Instructions .ROUTE .MEDSUPPLY #3 ea 04/04/18 [Rx Confirmed 10/08/18] flash glucose sensor kit See Dose Instructions .ROUTE .MEDSUPPLY #2 ea 07/02/18 [Rx Confirmed 10/08/18] FreeStyle Antonieta 14 Day [place] See Dose Instructions .ROUTE .MEDSUPPLY #1 ea NS 07/16/18 [Rx Confirmed 10/08/18] insulin lispro (U-200) 200 unit/mL (3 mL) subcutaneous pen See Rx Instructions SC QAM #3 ml 07/16/18 [Rx Confirmed 10/08/18] insulin detemir (U-100) 100 unit/mL (3 mL) subcutaneous pen 13 unit SC BID #9 ml 07/30/18 [Rx Confirmed 10/08/18] BD Ultra-Fine Viviana Pen Needle 32 gauge x 5/32 See Dose Instructions .ROUTE .MEDSUPPLY #150 ea NS 08/20/18 [Rx Confirmed 10/08/18] atorvastatin 20 mg tablet 20 mg PO QDAY #90 tab 10/02/18 [Rx Confirmed 10/08/18] [facility] Medical History Diabetes type 1, controlled (Acute) [...] current substance use type: does not use HPI HPI Surgical H AND P: Yes HPI: CIRILO CEBALLOS, is a 53 F who presents to the office today for for evaluation of 2 problems. Patient has a known history of multinodular goiter. She had a most recent ultrasound completed a [facility] on 07/03/2018 that showed a 9 mm nodule in the right lobe. Left lobe did not notice any demonstratable solid or cystic lesions but it did have a inferior located calcification. It was similar in the previous ultrasound. She has had no difficulty swallowing she has had no neck pain. She has never had a thyroid biopsy. The patient has never had a colonoscopy. She states that she moves her bowels regularly and has had no abdominal pain. She has not noticed any hematochezia or melena. She states that her mother did have a colonoscopy and numerous polyps were identified ROS General General: Yes fatigue; no weight change, appetite, colon cancer, breast cancer or weakness HEENT HEENT: Yes difficulty swallowing; no eye injury, eye surgery, swollen glands or hoarseness Endo Endocrine: Yes thyroid disease and diabetes mellitus; no thyroid cancer, Hair loss, heat intolerance or cold intolerance Skin Skin: No rash or changing moles Breast Breast: No left breast lump, right breast lump, nipple discharge, breast pain, abnormal mammogram, abnormal US or breast enlargement Musc Musculoskeletal: No back problems, arthritis, rheumatoid arthritis, gout or joint pain Cardio Cardiovascular: Yes high blood pressure; no murmur, pacemaker, heart disease, atrial fibrillation, heart attack, heart stent, palpitations, shortness of breat with exertion or chest pain Psych Psychiatric: Yes anxiety; no depression or hearing voices Resp Respiratory: No shortness of breath, No sleep apnea, Yes cough, No COPD, No asthma, No emphysema, No wheezing Gastro Gastrointestinal: No abdominal pain, No nausea or vomiting, No diarrhea, No constipation, No blood in stool, No acid reflux, No hemorrhoids, No ulcers, No gallbladder problem, No black,tarry stools Ciaran Hematologic: No blood thinners, No blood disorders, No bleeding, No anemia, No blood clots Neuro Neurologic: No system reviewed and no additional complaints, except as docu, No as per HPI, No abnormal walking, No abnormal hearing, No abnormal movements, No abnormal speech, No behavioral changes, No burning sensations, No confusion, No seizure-like activity, No unsteadiness, No dizziness, No localized weakness, No frequent falls, No headache(s), No lack of coordination, No loss of vision, No memory loss, No numbness, No other visual disturbances, No radiating pain, No restless legs, No sensory deficit, No fainting, No tingling, No tremor(s), No weakness, No other Exam Const General: no acute distress, well developed, well hydrated Orientation: oriented to person, oriented to place, oriented to time [facility] Head: normocephalic, atraumatic Ears: external ears normal Mouth: moist mucous membranes Other: No hard nodules are identified within the thyroid itself. There is no lymphadenopathy bilaterally there is no neck tenderness noted bilaterally Eyes Sclera: sclerae normal Pupils: normal by confrontation Neck Neck: no lymphadenopathy noted Neck mass: No Thyroid: thyroid normal, symmetrical Chest Chest palpation AND inspection: normal inspection of the chest Breast Palpation: No nipple discharge Resp Effort AND Inspection: normal respiratory effort Auscultation: clear to auscultation bilaterally Percussion: percussion normal Cardio Rate: regular rate Rhythm: regular rhythm Heart Sounds: no murmurs GI Palpation: soft, no hepatosplenomegaly, no masses, nontender Rectal Exam: other Other: Rectal exam deferred. Extrem General: normal to inspection, no clubbing, cyanosis or edema Assessment AND Plan Problems 1. Multinodular goiter (nontoxic) E04.2 2. Screening for colon cancer Z12.11 Plan At the present time I do not believe the patient needs to have any final L aspirations done to her thyroid gland. I believe a yearly thyroid ultrasound would be warranted if the nodule is larger than 1 cm at that time and we will entertain the thought of performing a fine-needle aspiration. The patient does however need to have a colonoscopy. . I have offered the patient colonoscopy for evaluation. I have explained the risks/benefits of the procedure and described the procedure. I have discussed the risks with the patient, including but not limited to: infection, bleeding, perforation of the GI tract requiring emergency surgery, inability to complete the procedure, injury to any internal organs, complications of anesthesia, etc. - the patient understands and agrees to proceed. I have answered all the patient's questions to the patient's satisfaction and the patient has no further questions. The patient has been given instructions for the colon cleansing preparation. Coding Level of Care Code Off vis,new,level 3 Diagnoses Multinodular goiter (nontoxic) E04.2 Screening for colon cancer Z12.11 10/19/18 1239 <Electronically signed by Sabino Miguel MD> Date Sabino Miguel MD Cosigner Signature: Date (if applicable) CC: Jenny Cooper STROKE COORDINATOR; Cecy Gotti Start: 10-08-2018 End: 10-08-2018 Surgery Visit Report Comments: See Note; NOTES: [facility] [address] [place] [address] OFFICE VISIT Date of Service: 10/08/18 MR#: [id number] Acct: [id number] Name: CIRILO CEBALLOS Suzy Rep #: [id number] : 1965 Provider: Sabino Miguel MD Age/Sex: 53/F Location: [facility] Status: Signed Intake Vital Signs10/08/18 Body Mass Index (BMI) 26.4 10/08/18 Height 5 ft 2 in 10/08/18 Weight: 146 lb 10/08/18 Body Mass Index (BMI) 26.6 10/08/18 Blood Pressure 151/82 H 10/08/18 Blood Pressure Location Rt brachial Intake Visit Reasons: Thyroid Nodules/US [facility] 06/2018 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: No Is patient in pain?: No Allergies No Known Allergies Allergy (Verified 10/08/18 13:18) Medications Lactobacillus acidophilus capsule 10 mg PO QDAY 06/26/17 [History Confirmed 10/08/18] loratadine 10 mg tablet 10 mg PO QDAY 06/26/17 [History Confirmed 10/08/18] multivitamin capsule 1 cap PO QAM 06/26/17 [History Confirmed 10/08/18] pen needle, diabetic 31 gauge x 11/29 See Dose Instructions .ROUTE .MEDSUPPLY #150 ea 06/27/17 [Rx Confirmed 10/08/18] FreeStyle Welch Lite kit See Dose Instructions .ROUTE .MEDSUPPLY #1 ea NS 11/06/17 [Rx Confirmed 10/08/18] FreeStyle Lancets 28 gauge See Dose Instructions .ROUTE .MEDSUPPLY #100 ea NS 11/06/17 [Rx Confirmed 10/08/18] FreeStyle Lite Strips See Dose Instructions .ROUTE .MEDSUPPLY #150 ea NS 11/06/17 [Rx Confirmed 10/08/18] lisinopril 20 mg tablet 20 mg PO QDAY #90 tab 03/21/18 [Rx Confirmed 10/08/18] flash glucose scanning reader See Dose Instructions .ROUTE .MEDSUPPLY #1 ea 04/04/18 [Rx Confirmed 10/08/18] flash glucose sensor kit See Dose Instructions .ROUTE .MEDSUPPLY #3 ea 04/04/18 [Rx Confirmed 10/08/18] flash glucose sensor kit See Dose Instructions .ROUTE .MEDSUPPLY #2 ea 07/02/18 [Rx Confirmed 10/08/18] FreeStyle Antonieta 14 Day [place] See Dose Instructions .ROUTE .MEDSUPPLY #1 ea NS 07/16/18 [Rx Confirmed 10/08/18] insulin lispro (U-200) 200 unit/mL (3 mL) subcutaneous pen See Rx Instructions SC QAM #3 ml 07/16/18 [Rx Confirmed 10/08/18] insulin detemir (U-100) 100 unit/mL (3 mL) subcutaneous pen 13 unit SC BID #9 ml 07/30/18 [Rx Confirmed 10/08/18] BD Ultra-Fine Viviana Pen Needle 32 gauge x 5/32 See Dose Instructions .ROUTE .MEDSUPPLY #150 ea NS 08/20/18 [Rx Confirmed 10/08/18] atorvastatin 20 mg tablet 20 mg PO QDAY #90 tab 10/02/18 [Rx Confirmed 10/08/18] [facility] Medical History Diabetes type 1, controlled (Acute) [...] substance use type: does not use ROS General General: Yes fatigue; no weight change, appetite, colon cancer, breast cancer or weakness HEENT HEENT: Yes difficulty swallowing; no eye injury, eye surgery, swollen glands or hoarseness Endo Endocrine: Yes thyroid disease and diabetes mellitus; no thyroid cancer, Hair loss, heat intolerance or cold intolerance Skin Skin: No rash or changing moles Breast Breast: No left breast lump, right breast lump, nipple discharge, breast pain, abnormal mammogram, abnormal US or breast enlargement Musc Musculoskeletal: No back problems, arthritis, rheumatoid arthritis, gout or joint pain Cardio Cardiovascular: Yes high blood pressure; no murmur, pacemaker, heart disease, atrial fibrillation, heart attack, heart stent, palpitations, shortness of breat with exertion or chest pain Psych Psychiatric: Yes anxiety; no depression or hearing voices Resp Respiratory: No shortness of breath, No sleep apnea, Yes cough, No COPD, No asthma, No emphysema, No wheezing Gastro Gastrointestinal: No abdominal pain, No nausea or vomiting, No diarrhea, No constipation, No blood in stool, No acid reflux, No hemorrhoids, No ulcers, No gallbladder problem, No black,tarry stools Ciaran Hematologic: No blood thinners, No blood disorders, No bleeding, No anemia, No blood clots Neuro Neurologic: No system reviewed and no additional complaints, except as docu, No as per HPI, No abnormal walking, No abnormal hearing, No abnormal movements, No abnormal speech, No behavioral changes, No burning sensations, No confusion, No seizure-like activity, No unsteadiness, No dizziness, No localized weakness, No frequent falls, No headache(s), No lack of coordination, No loss of vision, No memory loss, No numbness, No other visual disturbances, No radiating pain, No restless legs, No sensory deficit, No fainting, No tingling, No tremor(s), No weakness, No other Exam Const General: no acute distress, well developed, well hydrated Orientation: oriented to person, oriented to place, oriented to time [facility] Head: normocephalic, atraumatic Ears: external ears normal Mouth: moist mucous membranes Other: No hard nodules are identified within the thyroid itself. There is no lymphadenopathy bilaterally there is no neck tenderness noted bilaterally Eyes Sclera: sclerae normal Pupils: normal by confrontation Neck Neck: no lymphadenopathy noted Neck mass: No Thyroid: thyroid normal, symmetrical Chest Chest palpation AND inspection: normal inspection of the chest Breast Palpation: No nipple discharge Resp Effort AND Inspection: normal respiratory effort Auscultation: clear to auscultation bilaterally Percussion: percussion normal Cardio Rate: regular rate Rhythm: regular rhythm Heart Sounds: no murmurs GI Palpation: soft, no hepatosplenomegaly, no masses, nontender Rectal Exam: other Other: Rectal exam deferred. Extrem General: normal to inspection, no clubbing, cyanosis or edema Assessment AND Plan Problems 1. Multinodular goiter (nontoxic) E04.2 2. Screening for colon cancer Z12.11 Plan At the present time I do not believe the patient needs to have any final L aspirations done to her thyroid gland. I believe a yearly thyroid ultrasound would be warranted if the nodule is larger than 1 cm at that time and we will entertain the thought of performing a fine-needle aspiration. The patient does however need to have a colonoscopy. . I have offered the patient colonoscopy for evaluation. I have explained the risks/benefits of the procedure and described the procedure. I have discussed the risks with the patient, including but not limited to: infection, bleeding, perforation of the GI tract requiring emergency surgery, inability to complete the procedure, injury to any internal organs, complications of anesthesia, etc. - the patient understands and agrees to proceed. I have answered all the patient's questions to the patient's satisfaction and the patient has no further questions. The patient has been given instructions for the colon cleansing preparation. Coding Level of Care Code Off vis,new,level 3 Diagnoses Multinodular goiter (nontoxic) E04.2 Screening for colon cancer Z12.11 10/08/18 1343 <Electronically signed by Sabino Miguel MD> Date Sabino Duke Signature: Date (if applicable) CC: Jenny Cooper NP; Cecysudhakar Alarcon Cecy Alarcon Start: 10-02-2018 End: 10-02-2018 Endocrinology Visit Report Comments: See Note; NOTES: [facility] [address] [place] [address] OFFICE VISIT Date of Service: 10/02/18 MR#: [id number] Acct: [id number] Name: CIRILO CEBALLOS Rep #: [id number] : 1965 Provider: Jenny Cooper NP Age/Sex: 53/F Location: [facility] Status: Signed HPI History of present [...] Today patient is noted to be having high BG from 3pm until 6am. At time of visit: -Pt denies symptoms [...] glucagon: Yes SMBG 4 checks daily in rangearound 12n High BG by 3pm Exercise Walking in the evenings but uses [...] chest pain at rest, dyspnea on exertion, myalgias or lightheadedness GI symptoms: Denies nausea/dyspepsia, vomiting, diarrhea or constipation Other symptoms: Denies blurry vision or change in vision Intake Vital Signs10/02/18 Body Mass Index (BMI) 26.4 Intake Visit Reasons: 3 M FU 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: No Accompanied by: Self Allergies No Known Allergies Allergy (Verified 10/02/18 10:14) Medications Lactobacillus acidophilus capsule 10 mg PO QDAY 06/26/17 [History Confirmed 10/02/18] loratadine 10 mg tablet 10 mg PO QDAY 06/26/17 [History Confirmed 10/02/18] multivitamin capsule 1 cap PO QAM 06/26/17 [History Confirmed 10/02/18] pen needle, diabetic 31 gauge x 11/29 See Dose Instructions .ROUTE .MEDSUPPLY #150 ea 06/27/17 [Rx Confirmed 10/02/18] FreeStyle Welch Lite kit See Dose Instructions .ROUTE .MEDSUPPLY #1 ea NS 11/06/17 [Rx Confirmed 10/02/18] FreeStyle Lancets 28 gauge See Dose Instructions .ROUTE .MEDSUPPLY #100 ea NS 11/06/17 [Rx Confirmed 10/02/18] FreeStyle Lite Strips See Dose Instructions .ROUTE .MEDSUPPLY #150 ea NS 11/06/17 [Rx Confirmed 10/02/18] lisinopril 20 mg tablet 20 mg PO QDAY #90 tab 03/21/18 [Rx Confirmed 10/02/18] flash glucose scanning reader See Dose Instructions .ROUTE .MEDSUPPLY #1 ea 04/04/18 [Rx Confirmed 10/02/18] flash glucose sensor kit See Dose Instructions .ROUTE .MEDSUPPLY #3 ea 04/04/18 [Rx Confirmed 10/02/18] flash glucose sensor kit See Dose Instructions .ROUTE .MEDSUPPLY #2 ea 07/02/18 [Rx Confirmed 10/02/18] FreeStyle Antonieta 14 Day [place] See Dose Instructions .ROUTE .MEDSUPPLY #1 ea NS 07/16/18 [Rx Confirmed 10/02/18] insulin lispro (U-200) 200 unit/mL (3 mL) subcutaneous pen See Rx Instructions SC QAM #3 ml 07/16/18 [Rx Confirmed 10/02/18] insulin detemir (U-100) 100 unit/mL (3 mL) subcutaneous pen 13 unit SC BID #9 ml 07/30/18 [Rx Confirmed 10/02/18] BD Ultra-Fine Viviana Pen Needle 32 gauge x See Dose Instructions .ROUTE .MEDSUPPLY #150 ea NS 08/20/18 [Rx Confirmed 10/02/18] atorvastatin 20 mg tablet 20 mg PO QDAY #90 tab 10/02/18 [Rx Confirmed 10/02/18] Nurse's Note: blood sugars : low : 75 high : 400 [facility] Medical History Diabetes type 1, controlled (Acute) [...] not use ROS Const Constitutional: Positive for fatigue; no anorexia, body ache, chills, excessive sweating, fever(s), frequent falls, headache(s), decreased energy, malaise, night sweats, snoring, weakness, weight change, sleep problems, abnormal sleep pattern, change in appetite or other Eyes Eyes: No blurry vision, change in vision, double vision, discharge, dry eyes, bulging eyes, floaters, visual disturbances, eye pain, light sensitivity, spots in vision, tunnel vision or other ENT ENT: Positive for post nasal drip and sore throat; no abnormal hearing, ear pain, ear discharge, ear pressure, hearing loss, tinnitus, dizziness/vertigo, balance problems, nosebleed/epistaxis, nasal congestion, nasal obstruction, nose pain, sinus pressure, sinus pain, nasal discharge, headache(s), facial pain, dental pain, dry mouth, difficulty swallowing, bad breath, hoarseness, lip swelling, mouth lesions, mouth pain, neck pain, tongue swelling, throat swelling or other Resp Respiratory: Positive for cough; no change in phlegm color, chest congestion, excessive [...] odor, Vaginal Itching or other Musc Musculoskeletal: Positive for tingling (bilat feet/toes); no abnormal walking, joint pain, back pain, deformity, joint swelling, limited range of motion, loss of height, muscle cramps, muscle weakness, decreased muscle mass, body aches, neck pain, numbness, radiating pain into limb, stiffness or other Skin Skin: No acne, hair loss, change in hair, nail changes, boil, change in skin color, dry skin, redness, excessive hair growth, yellowing of the skin, lesions, itching, rash, skin pain, skin ulcer, sores, skin swelling, wounds or other Breast Breast: No other Neuro Neurology: Positive for tingling (bilat feet/toes); no abnormal walking, abnormal hearing, weakness, frequent falls, headache(s), numbness or visual disturbances Psych Psychiatric: No abnormal sleep pattern, No change in appetite Endo Endocrine: Positive for fatigue; no excessive sweating or other Aller/Imm Allergy/Immunologic: No itchy eyes, lip swelling, throat swelling, tongue swelling or wheezing Assessment AND Plan Problems 1. diabetes type 1 uncontrolled with longterm insulin 2. Hypothyroidism (acquired) E03.9 Plan Diabetes: Is having elevation in BG as evening and night are monitored. Best Bg readings at lunch after she has corrected but then they climb again. Patient will increase her am dose of levemir. Once Bg more neutral until lunch, may consider change of dose for meal coverage. Reviewed lab findings with patient. Ultra sound notes 9x9x8 8mm nodule and 2mm calcification. Pt not feeling any difficulty with swallowing at todays visit. Will send for consult with Dr. Miguel Orders Referrals: Medications New: Plan Detail Additional Comments 1. Please schedule follow up in 3 months with butt maker. 2. Lab work one week before appointment. [...] Coding Level of Care Code Off vis,est,level 3 Diagnoses diabetes type 1 uncontrolled with longterm insulin Hypothyroidism (acquired) E03.9 10/02/18 1407 <Electronically signed by Jenny WEBSTER> Date Jenny WEBSTER Cosigner Signature: Date (if applicable) CC: Cecy Alarcon Start: 07-03-2018 End: 07-04-2018 Thyroid Comments: See Note; NOTES: [facility] Imaging Services [address] [place] [address] Thyroid MR#: [id number] Acct: [id number] Name: CIRILO CEBALLOS Rep #: [id number] : 1965 F 53 From: Mary Ellen Crawford MD PCP: Cecy Alarcon DO Status: REG CLI Study: Thyroid Date of Exam: 07/03/18 Exam# [id number] Ordering Dr: Jenny Cooper NP-C STUDY: THYROID ULTRASOUND REASON FOR EXAM: Female, [...] , Service support , CC: Jenny Cooper STROKE COORDINATOR; Cecy Alarcon DO Supervisor Die Casting: Signed Cecy Alarcon Start: 07-02-2018 End: 07-02-2018 Endocrinology Visit Report Comments: See Note; NOTES: [facility] [place] [address] OFFICE VISIT Date of Service: 07/02/18 MR#: [id number] Acct: [id number] Name: CIRILO CEBALLOS Rep #: [id number] : 1965 Provider: Jenny Cooper NP Age/Sex: 53/F Location: [facility] [facility] Status: Signed HPI History of present illness [...] Position Sitting Intake Visit Reasons: Diabetes follow-up 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: No Accompanied by: Self Allergies No [...] #150 ea 06/27/17 [Rx Confirmed 07/02/18] FreeStyle Welch Lite kit See Dose Instructions .ROUTE .MEDSUPPLY [...] : low : 82 high : 442 [facility] Medical History Diabetes type 1, controlled (Acute) [...] WEBSTER Cosigner Signature: Date (if applicable) CC: Cecy Alarcon Start: 04-05-2018 End: 04-05-2018 Endocrinology Visit Report Comments: See Note; NOTES: [facility] [address] [place] [address] OFFICE VISIT Date of Service: 04/04/18 MR#: [id number] Acct: [id number] Name: CIRILO CEBALLOS Suzy Rep #: [id number] : 1965 Provider: Jenny Cooper NP Age/Sex: 53/F Location: [facility] Status: Signed with Addenda ADDENDUM by Jenny [...] Position Sitting Intake Visit Reasons: Follow up 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: No Accompanied by: Self Is patient [...] #150 ea 06/27/17 [Rx Confirmed 04/04/18] FreeStyle Welch Lite kit See Dose Instructions .ROUTE .MEDSUPPLY [...] .ROUTE .MEDSUPPLY #3 ea 04/04/18 [Rx Confirmed 04/04/18] Is last menstrual period known: No Post menopausal: Yes Patient : No Nurse's Note: Blood sugars : low : 67 high : 342 [facility] Medical History Diabetes type 1, controlled (Acute) [...] E03.9 2. diabetes type 1 uncontrolled with longterm insulin Plan Continue with current insulin regimen. On days when patient walks she is ask to further work to avoid night time low BG's. will order antonieta sensor for patient, pending insurance approval. Has bruising from new pen needles which have larger gauge than past needles. Will order viviana needles to determine if this helps. Enc [...] (acquired) E03.9 diabetes type 1 uncontrolled with longterm insulin 04/05/18 0824 <Electronically signed by Jenny WEBSTER> Date Jenny WEBSTER Cosigner Signature: Date (if applicable) CC: Cecy Alarcon Start: 01-06-2018 End: 01-06-2018 Endocrinology Visit Report Comments: See Note; NOTES: [facility] [address] [place] [address] OFFICE VISIT Date of Service: 01/03/18 MR#: [id number] Acct: [id number] Name: CIRILO CEBALLOS Rep #: [id number] : 1965 Provider: Jenny Cooper NP Age/Sex: 52/F Location: [facility] Status: Signed HPI History of present illness [...] Appearance: average body habitus Orientation: oriented x3 HENWV Head: normal to inspection, normocephalic Ears: hearing [...] Sitting Intake Visit Reasons: 3 M FU 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: No Accompanied by: Self Is patient [...] 01/03/18] pen needle, diabetic 31 gauge x 5/16 See Dose Instructions .ROUTE .MEDSUPPLY #150 ea 06/27/17 [Rx Confirmed 01/03/18] FreeStyle Welch Lite kit See Dose Instructions .ROUTE .MEDSUPPLY [...] Problems 1. diabetes type 1 uncontrolled with longterm insulin 2. Hypothyroidism (acquired) E03.9 Plan Daily [...] 4 Diagnoses diabetes type 1 uncontrolled with longterm insulin Hypothyroidism (acquired) E03.9 Time Spent (min) 60 01/06/18 0842 <Electronically signed by Jenny WEBSTER> Date Jenny WEBSTER Cosigner Signature: Date (if applicable) CC: Cecy Alarcon Start: 10-01-2017 End: 10-01-2017 Endocrinology Visit Report Comments: See Note; NOTES: [facility] [address] [place] [address] OFFICE VISIT Date of Service: 09/27/17 MR#: [id number] Acct: [id number] Name: CIRILO CEBALLOS Rep #: [id number] : 1965 Provider: Jenny Cooper NP Age/Sex: 52/F Location: [facility] [facility] Status: Signed HPI History of present illness [...] Sitting Intake Visit Reasons: 3 M FU 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: No Accompanied by: Self Is patient [...] Problems 1. diabetes type 1 uncontrolled with terminal manager insulin 2. Hypothyroidism (acquired) E03.9 Orders Orders: [...] 4 Diagnoses diabetes type 1 uncontrolled with terminal manager insulin Hypothyroidism (acquired) E03.9 Time Spent (min) 30 10/01/17 1642 <Electronically signed by Jenny WEBSTER> Date Jenny WEBSTER Cosigner Signature: Date (if applicable) CC: Cecy Alarcon Start: 06-28-2017 End: 06-29-2017 Thyroid Comments: See Note; NOTES: [facility] Imaging Services [address] [place] [address] Thyroid MR#: [id number] Acct: [id number] Name: CIRILO CEBALLOS Rep #: [id number] : 1965 F 52 From: Erasto Honeycutt DO PCP: Melyssa Dowd NP Status: REG CLI Study: Thyroid Date of Exam: 06/28/17 Exam# [id number] Ordering Dr: Jenny Cooper STUDY: THYROID ULTRASOUND REASON FOR EXAM: Female, 52 years old. Dysphagia. Hypothyroidism. TECHNIQUE: Ultrasound evaluation of the thyroid was performed with real-time and static robin-scale imaging. COMPARISON: None. FINDINGS: RIGHT LOBE: The right lobe of the thyroid gland measures 4.0 x 1.4 x 1.5 cm. There is a heterogenous echotexture. There is a 2 mm calcification in the lower pole. There is a questionable 8 mm isoechoic nodule in the lower pole although this may simply represent normal tissue outlined by the general heterogeneity. LEFT LOBE: The left lobe of the thyroid gland measures 4.4 x 1.3 x 1.2 cm. There is a heterogeneous echotexture. There is no distinct nodule or mass. ISTHMUS: The isthmus measures 0.4 cm. The regional lymph nodes are normal. US/Thyroid IMPRESSION: Heterogenous thyroid. There is a questionable mass versus normal tissue outlined by heterogeneity in the right thyroid. A small calcification is seen in the right lower pole. Electronically Signed: Erasto Honeycutt DO at 10:17 EST Tel [phone], Service support , CC: Jenny Cooper NP; Melyssa Dowd NP Supervisor Die Casting: Signed Cecy Alarcon Start: 06-26-2017 End: 06-26-2017 Endocrinology Visit Report Comments: See Note; NOTES: [facility] [address] [place] [address] OFFICE VISIT Date of Service: 06/26/17 MR#: [id number] Acct: [id number] Name: CIRILO CEBALLOS Rep #: [id number] : 1965 Provider: Jenny Cooper NP Age/Sex: 52/F Location: [facility] [place] [facility] Status: Signed HPI History of present illness Cirilo Ceballos is a 52 year old female who presents for follow up of diabetes,type 1. Continues on levemir 13 units in am and 11 units in pm. Humalog coverage at meals is 5-7-13-0. Last visit a decrease in pm levemir was made and pt is no longer have low BG at night. Complains of difficulty in swallowing solid foods at times. She also feels thyroid is larger. No SOB. Type: type 1 Weight and fatigue symptoms: Denies snoring Cardiopulmonary symptoms: Denies chest pain at rest, dyspnea on exertion, lightheadedness or myalgias GI symptoms: Reports constipation; denies diarrhea, nausea/dyspepsia or vomiting Other symptoms: Denies blurry vision or change in vision Self monitoring: Yes Glucometer type: accucheck Fasting BG range: 109-200+ After lunch BG range: 80-200 Dietary compliance: Diabetes: other (Does snack in afternoon without insulin coverage) Diabetes education in past year: Yes Glucose testing: demonstrates correct use of meter Sick day education - understands ketone testing: Yes Physical activity: regular Exam Const General: healthy appearing, no acute distress Nutritional Appearance: well nourished Orientation: awake, oriented x3 HENMT Head: normal to inspection, atraumatic Ears: hearing grossly normal bilaterally Nose: no nasal discharge Mouth: oral mucosae normal, moist mucous membranes Eyes General: appearance normal, both eyes and all related structures Conjunctivae: conjunctivae normal Sclera: sclerae normal Pupils: PERRL Neck Neck: normal visual inspection Thyroid: firm Chest Chest palpation AND inspection: deferred Resp Effort AND Inspection: normal respiratory effort, able to speak in complete sentences, symmetric chest movement Auscultation: Bilateral: Clear to Auscultation Cardio Rate: regular rate Rhythm: regular rhythm Heart Sounds: S1 normal, S2 normal GI Auscultation: normal bowel sounds Palpation: soft, no guarding General: deferred Skin General: no rashes or lesions noted Wounds: no wounds Diabetic Foot Pulses: L dorsalis pedis pulse: normal, R dorsalis pedis pulse: normal Monofilament test: Left foot: normal, Right foot: normal Neuro Cranial Nerves: CN's II-XI intact bilaterally Cognition: normal cognition Speech: speech normal Gait: normal gait Extrem General: normal to inspection, full ROM Psych Mental Status: mental status grossly normal Affect: normal affect Speech and Movement: speech and movement normal Attitude: cooperative Judgment: judgment good Intake Vital Signs06/26/17 Height 5 ft 2 in 06/26/17 Weight: 146 lb 2 oz 06/26/17 Body Mass Index (BMI) 26.7 06/26/17 Blood Pressure 138/80 06/26/17 Blood Pressure Position Sitting Intake Visit Reasons: 3 M FU 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: No Is patient in pain?: No Allergies No Known Allergies Allergy (Unverified 06/26/17 11:46) Medications acidophilus 100 million cell-pectin, citrus 10 mg capsule 1 cap PO .qd ea 06/26/17 [History Confirmed 06/26/17] atorvastatin 20 mg tablet 20 mg PO QDAY 06/26/17 [History Confirmed 06/26/17] insulin detemir 100 unit/mL (3 mL) subcutaneous pen 13 unit SC BID ml 06/26/17 [History Confirmed 06/26/17] insulin lispro 100 unit/mL subcutaneous pen 5 unit SC TID ml 06/26/17 [History Confirmed 06/26/17] lisinopril 20 mg tablet 20 mg PO QDAY 06/26/17 [History Confirmed 06/26/17] loratadine 10 mg tablet 10 mg PO QDAY 06/26/17 [History Confirmed 06/26/17] multivitamin capsule 1 cap PO QAM 06/26/17 [History Confirmed 06/26/17] progesterone micronized 100 mg capsule 100 mg PO QAM 06/26/17 [History Confirmed 06/26/17] Is last menstrual period known: No Patient : No Nurse's Note: diabetes mellitus, type 1 Dx : Last exacerbation : DKA : never Hypoglycemic episode :never ER visit : never Blood sugars : Low : 55 High : 403 [facility] Medical History Diabetes type 1, controlled (Acute) Hypothyroid (Acute) Surgical History History of (Acute) History of carpal tunnel release of both wrists (Acute) History of lumpectomy of right breast (Acute) Family History Mother Bleeding disorder Diabetes High cholesterol Cancer Heart disease Hypertension Social History Smoking Status: Never smoker second hand exposure: No alcohol intake: current substance use type: does not use ROS Const Constitutional: Positive for night sweats; no anorexia, body ache, chills, fatigue, fever(s), frequent falls, decreased energy, malaise, weakness, weight change, sleep problems, abnormal sleep pattern, change in appetite, headache(s), snoring, excessive sweating or other Eyes Eyes: No blurry vision, change in [...] pain, sore throat, tongue swelling, throat swelling, difficulty swallowing, neck pain or other Resp Respiratory: No cough, change in phlegm [...] heart rate, palpitations or other Gastro GI: Positive for constipation; no abdominal pain, belching, bloating, change in bowel habits, change in stool character, coffee ground emesis, cramping, diarrhea, heartburn, difficulty swallowing, feeling full [...] dryness, vaginal odor, Vaginal Itching or other Genitourinary: No difficulty urinating, burning urination, painful urination, urinary incontinence, urinary frequency, urinary urgency, urinary hesitancy, urinary retention, blood in urine, Frequent nighttime urination/ nocturia, post void dribbling, suprapubic fullness, side pain, sexual problems, genital lesions, genital itching, hot flashes, abnormal periods, abnormal vaginal bleeding, absent period, painful periods, light periods, heavy periods, difficulty getting , painful intercourse, pelvic pain, vaginal dryness, vaginal odor, vaginal itching or other Musc Musculoskeletal: No abnormal walking, joint pain, back pain, deformity, joint swelling, limited range of motion, loss of height, muscle cramps, muscle weakness, decreased muscle mass, body aches, neck pain, numbness, radiating pain into limb, stiffness, tingling or other Skin Skin: No other Neuro Neurology: No frequent falls, weakness, visual disturbances, abnormal hearing, headache(s), abnormal walking, numbness, tingling or other Psych Psychiatric: No abnormal sleep pattern, No change in appetite, No other Endo Endocrine: No fatigue, excessive sweating or other Aller/Imm Allergy/Immunologic: No lip swelling, tongue swelling, throat swelling, wheezing or other Ciaran/Lymp Hematologic/Lymphatic: No other Assessment AND Plan Problems 1. Hypothyroidism (acquired) E03.9 2. diabetes type 1 uncontrolled with longterm insulin Plan Reduce levemir am dose by 1-2 units to determine if this allows you to avoid low BG at lunch Continue with intensive BG monitoring If you feel hungry or different check BG reading. Orders Orders: Plan Detail Additional Comments Spent approximately 30 minutes with pt with over 50% of time for discussion and counseling of proper foot care, medication administration and insulin adjustment, diet and exercise adherence, symptoms and treatment of hypoglycemia, and checking BG before driving. Follow Up 3 Months Patient Education Diabetes: Inspecting Your Feet 06/26/17 1323 <Electronically signed by Jenny WEBSTER> Date Jenny WEBSTER Cosigner Signature: Date (if applicable) CC: Cecy Alarcon Start: 12-28-2016 End: 01-02-2017 *CMP Complete Metabolic Panel Jenny Cooper STROKE COORDINATOR Work Phone: Start: 12-28-2016 End: 01-02-2017 *Microalbumin, Creatine Ratio, rand urine Jenny Cooper STROKE COORDINATOR Work Phone: Start: 12-28-2016 End: 01-02-2017 Lipid 1996 panel - Serum or Plasma Jenny Cooper STROKE COORDINATOR Work Phone: Start: 05-18-2015 End: 05-19-2015 Operative Report Comments: See Note; NOTES: [facility] Medical Records Department [address] [place] [address] Operative Report MR#: [id number] Acct: [id number] Name: CIRILO CEBALLOS Rep #: [id number] : 1965 50 From: Romi Chris MD PCP: Cecy Alarcon DO Status: [facility] DATE OF SERVICE: 05/14/2015 DATE OF SERVICE: May 14, 2015. PREOPERATIVE DIAGNOSES: Irregular menstrual cycle, thickened endometrium on ultrasound and endometrial polyp. POSTOPERATIVE DIAGNOSES: Irregular menstrual cycle, thickened endometrium on ultrasound and endometrial polyp, enlarged uterus. PROCEDURES: D and C, hysteroscopy, polypectomy. SURGEON: Romi Chris M.D. ESTIMATED BLOOD LOSS: Minimal. FLUIDS: Lactated Ringer's. MEDICATIONS: Include 1% lidocaine locally to the cervix, 10 mL total. ANESTHESIA: MAC anesthetic along with 1% local lidocaine. URINE: Straight catheter ____. INDICATION: The patient is a 50-year-old white female who presents to the office with increased irregular menstrual cycles, post menses ultrasound revealed a thickened endometrium and the suggestion of an endometrial polyp. She was therefore consented for and accepted the risks of procedures of D and C, hysteroscopy. DESCRIPTION OF PROCEDURE: On the day of surgery after being n.p.o., the patient was taken to the operating room where she underwent a MAC anesthetic. Once found to be adequate, she was placed in dorsal lithotomy position via the Luis stirrups, prepped, draped in normal sterile fashion. Weighted speculum to the vagina. Pelvic examination prior to sterilization had occurred by myself to make notation of the enlarged uterus, which was in anteflexed position. Weighted speculum to the vagina. Anterior lip of the cervix was grasped and elevated, 10 mL of 1% lidocaine placed to the 4 quadrants of the cervix and the patient tolerated well. Uterus was sounded to about 12 cm in anteflex position. Cervical os dilated to accommodate a 5 mm hysteroscope, which was placed into the endometrial cavity. Evaluation of the endometrium revealed a very large amount of tissue and a polyp noted near the fundal area of the uterus. Polyp forceps were used to remove the polyp entirely followed by sharp curettage of the endometrium and this was all sent away for pathological evaluation. Replacement of the hysteroscope into the endometrium revealed removal of all tissue. All instruments were removed from the vagina. Sponge, instrument counts correct x2. The patient was awakened in stable condition, taken to recovery room to be discharged, will follow up in the office in 1-2 weeks' time. Romi Chris MD T: NTS JOB: [id number] 05/18/15 1530 <Electronically signed by Romi Chris MD> Date Romi Chris MD Cosigner Signature (If Indicated): Date CC: Romi Chris MD; Cecy Alarcon DO Date Dictated: 05/14/15 1232 Date Transcribed: 05/14/15 123 Supervisor Die Casting: Signed Cecy Alarcon Start: 05-14-2015 End: 05-14-2015 Discharge Instruction Comments: See Note; NOTES: [facility] Medical Records Department [address] [place] [address] Instructions for Home/Discharge Instructions 05/14/15 1222 MR#: [id number] Acct: [id number] Name: CIRILO CEBALLOS Rep #: [id number] : 1965 50 From: Romi Chris MD PCP: Cecy Alarcon DO Status: REG SDC Discharge Diet: No Restrictions Discharge Activity: Return to Normal Activity, May Shower, May Take a Tub Bath - in 2 weeks. Return to work on:: 05/15/15 May shower in (days): 0 - now Weight Bearing Status: Full weight bearing Lifting Restrictions: none Call your doctor if your incision/area has: Sudden Increased Bleeding, Foul Smelling Discharge Call your doctor if you observe: Uncontrolled pain Allergies/Adverse Reactions: Allergies No Known Allergies Allergy (Verified 04/20/15 14:15) Medications to take at Discharge Atorvastatin Calcium [Lipitor] 20 mg PO DAILY 04/20/15 Insulin Detemir [Levemir (BKC)] 13 units SC BID 04/20/15 Insulin Glulisine [Apidra] 5 unit SQ BID 04/20/15 Insulin Glulisine [Apidra] 11 unit SQ DINNER 04/20/15 Lisinopril [Zestril] 5 mg PO DAILY 04/20/15 Please Follow Up With: Romi Chris When: 1-2 weeks postop 05/14/15 1224 <Electronically signed by Romi Chris MD> Date Romi Chris MD CC: Cecy Gotti Start: 05-14-2015 End: 05-14-2015 Operative Report Comments: See Note; NOTES: [facility] Medical Records Department [address] [place] [address] Operative Report 05/14/15 1220 MR#: [id number] Acct: [id number] Name: CIRILO CEBALLOS Rep #: [id number] : 1965 50 From: Romi Chris MD PCP: Cecy Alarcon DO Status: REG SDC Y Location: [place] [address] Operative Report (Blank) Date of Procedure: 05/14/15 Preop: Thickened endometrium, irregular menses, endometrial polyp Postop: Same Procedure: D and C, hysteroscopy Surgeon: Aries EBL: minimal Fluids: Lactated ringers Anesthesia: MAC + local Lidocaine 1% to cervix, 10cc Urine: Straight cath 05/14/15 1222 <Electronically signed by Romi hCris MD> Date Romi Chris MD CC: Romi Chris MD; Cecy Alarcon DO Signed Cecy Alarcon Carpal Tunnel Surger y - Right Zeynep Slarb Carpal Tunnel Surger y - Right Mignon Burgos Carpal Tunnel Surger y - Right Torri Gravius Decompression of median nerve Torri Gravius RECOVERY RN H/O: section Section Osito Mistry RECOVERY RN Comment on above: 2003 Operation on breast Zeynep S larb Operation on breast Mignon Ovalle Operation on breast Torri G vickyius Ophthalmic examinati on and evaluation Zeynep Slarb Comment on above: 2010 Ophthalmic examinati on and evaluation Mignon Burgos Comment on above: 2010 Ophthalmic examinati on and evaluation Torri Gravius Comment on above: 2010 Plan of Treatment Date Care Activity Detail Author Start: 04-18-2028 Screening for malign ant neoplasm of cervix [facility] Start: 07-17-2023 Behavioral Health Screening Behavioral Health Screening [facility] Start: 03-17-2023 Covid-19 Vaccine ( season) Covid-19 Vaccine ( season) [facility] Start: 2023 RSV Vaccine (1 - 1-d ose 60+ series) RSV Vaccine (1 - 1-dose 60+ series) [facility] Start: 11-22-2019 Procedure Education Eprescribe d prescriptions (G8553) [facility] Work Phone: Start: 11-22-2019 Provider Instruction s for Treatment Knee Injections-R [facility] Work Phone: Start: 11-21-2019 Procedure Education Eprescribe d prescriptions (G8553) [facility] Work Phone: Start: 11-21-2019 Provider Instruction s for Treatment [facility] Work Phone: Start: 03-28-2019 Pneumococcal vaccination Pneumococcal Vaccine (2 of 2 - PCV) [facility] Start: 02-18-2019 Provider Instruction s for Treatment [facility] Work Phone: Start: 02-18-2019 Hemoglobin glycosyla orquidea a1c HGB A1C (04140) [facility]; [facility] Work Phone: Start: 02-18-2019 HbA1c (Bld) [Mass fraction] HGB A1C (45718) [facility] Work Phone: Start: 02-18-2019 Free T4 [Mass/Vol] T4, FREE (T HYROXINE) (73135) [facility] Work Phone: Start: 02-18-2019 Free T3 [Mass/Vol] T3, FREE (TRIDOTHYRONINE) (49254) [facility] Work Phone: Start: 02-18-2019 Lipoprotein blood qu an numbers & subclasses NMR Profile (82481) [facility] Work Phone: Start: 02-18-2019 TSH Qn TSH (35977) [facility] Work Phone: Start: 02-18-2019 Urnls dip stick/tabl et reagent auto microscopy URINALYSIS, W/ MICRO (43998) [facility] Work Phone: Start: 02-18-2019 Urine albumin quantitative MICROALBUMIN: CREATININE RATIO (77679) AND (46302) [facility] Work Phone: Start: 02-18-2019 Blood count complete auto&auto difrntl wbc CBC W/AUTO DIFF WBC (62804) [facility] Work Phone: Start: 02-18-2019 Comprehensive metabo lic panel METABOLIC PANEL, COMPREHENSIVE (30049) [facility] Work Phone: Start: 08-01-2017 Hepatitis B surface antibody level LDL Cholesterol [facility] Start: 06-26-2017 End: 06-26-2017 Appointment Appointment [facility] Work Phone: Start: 12-28-2016 End: 01-02-2017 *CMP Complete Metabolic Panel *CMP Complete Metabolic Panel [facility] Work Phone: Start: 12-28-2016 End: 01-02-2017 *Microalbumin, Creatine Ratio, rand urine *Microalbumin, Creatine Ratio, rand urine [facility] Work Phone: Start: 12-28-2016 End: 01-02-2017 Lipid panel [AGGREGATE] *Lipid Profile [facility] Work Phone: Start: 10-25-2016 Hemoglobin A1c measurement HbA1C [facility] Start: 10-04-2016 Hepatitis B screening Urine Albumin:Creatinine Ratio [facility] Start: 09-24-2015 Diabetic foot examination Diabetic Foot Exam [facility] Start: 06-03-2015 Glaucoma screening Dilated Retinal E xam [facility] Start: 04-01-2015 Provider Instruction s for Treatment *Colon Cancer Screening [facility] Work Phone: Start: 04-01-2015 Blood count complete auto&auto difrntl wbc CBC, Platelets & Auto Diff (39760) [facility] Work Phone: Comment on above: to be done 1st weeki n OCT Start: 03-31-2015 Assay of ferritin Ferritin (71199) [facility] Work Phone: Start: 03-31-2015 Ferritin mass conc Ferritin (58502) [facility] Work Phone: Start: 03-30-2015 Provider Instruction s for Treatment [facility] Work Phone: Start: 03-24-2015 Provider Instruction s for Treatment Follow up if no improvement or if symptoms worsen [facility] Work Phone: Start: 04-28-2014 Patient Education [facility] Work Phone: Start: 04-28-2014 Provider Instruction s for Treatment Follow up if no improvement or if symptoms worsen [facility] Work Phone: Start: 07-03-2013 Provider Instruction s for Treatment [facility] Work Phone: Start: 04-02-2013 Provider Instruction s for Treatment [facility] Work Phone: Start: 02-10-2008 Screening for malign ant neoplasm of colon [facility] Start: 2003 Screening for malign ant neoplasm of breast Mammogram Screening [facility] Start: 1982 Urine microalbumin profile DTaP,Tdap,Td Vaccine (1 - Tdap) [facility] Start: 1981 Annual PCP Team Asset Protection Associate logan Disease Visit Annual PCP Team Chronic Disease Visit [facility] Start: 1981 BP Controlled (<130/80) BP Controlle d (<130/80) [facility] Patient referral [facility] Work Phone: End: 01-03-2025 XR Foot - right AP and Lateral and oblique XR FOOT GENERAL 3V AP/LAT/OBL RIGHT Radiology Routine Repetitive stress injury 1 Occurrences starting 12/05/2023 until 01/03/2025 [facility] Work Phone: Comment on above: 1 Occurrences starti ng 12/05/2023 until 01/03/2025 XR Foot - right AP a nd Lateral and oblique XR FOOT GENERAL 3V AP/LAT/OBL RIGHT Radiology Routine Pain in right foot 12/05/2023 10:53 AM EDT [facility] Work Phone: [facility] Work Phone: [facility] Work Phone: [facility] Work Phone: [facility] Work Phone: [facility] Work Phone: [facility] Work Phone[facility] Work Phone: [facility] Work Phone: [facility] Work Phone: [facility] Immunizations Immunization Date Immunization Notes Care Provider Brianne blanco 03-14-2023 influenza, seasonal, injectable Cecy Jarrell DO Work Phone: [facility]; [facility] Work Phone: 03-24-2020 influenza, seasonal, injectable Cecy Jarrell [facility] Work Phone: 02-13-2019 zoster vaccine, live Cecy Alarcon [facility] Work Phone: Comment on above: Site: Right Arm Payers Date Payer Category Payer Self-pay [id number] 2023 Medicaid [id number] 2023 Medicaid [facility] MEDICAID UHC COMMUNITY PLAN MEDICAID [place] [id number] 2023-Present [phone] [address] [place] [address] Medicaid [id number] 2013 Unknown [id number] Unknown [id number] Unknown [id number] Unknown [id number] Unknown [id number] Unknown [id number] Unknown [id number] Unknown [id number] Unknown [id number] Unknown [id number] Unknown [id number] Unknown [id number] Unknown [id number] Unknown [id number] Unknown [id number] Unknown [id number] Unknown [id number] Social History Date Type Detail Facility Start: 12-05-2023 Caffeine Use Never smoker [facility] Work Phone: Exercise History: Exercises occasionally. [facility] Work Phone: Living Situation: [facility] with spouse. [facility] Work Phone: Number of Child (age 0-17) Dependents: 1. [facility] Work Phone: Tobacco use: Never smoker. [facility] Work Phone: Exercise History: Exercise History: [facility]; [facility] Work Phone: [facility] Work Phone: Number of Child (age 0-17) Dependents: Number of Child (age 0-17) Dependents: [facility]; [facility] Work Phone: Tobacco use: Tobacco use: [facility] Work Phone: Start: 11-30-2021 End: 08-15-2023 Tobacco smoking status NHIS Unknown if ever smoked [facility] Start: 10-28-2020 Non-smoker [facility] Start: 1965 Sex Assigned At Female [facility] Start: 08-15-2023 Tobacco smoking status NHIS Never smoked tobacco [facility] Work Phone: Start: 12-05-2023 Alcohol intake Current non-dr marketing rep of alcohol (finding) [facility] Start: 12-05-2023 Tobacco use panel [facility] National Score (1-100), lower number is lower risk 71 [facility] Start: 1965 Sex Assigned At Not on file C [facility] Medical Equipment Procedure Code Equipment Code Equipment Origin al Text Equipment Identifier Dates Arthroscopy, knee, with meniscal root repair NEEDLE REV CRV DEL SYS FDA Start: 12-27-2019 Arthroscopy, knee, with meniscal root repair NEEDLE REV CRV DEL SYS FDA Start: 12-27-2019 Arthroscopy, knee, with meniscal root repair NEEDLE REV CRV DEL SYS FDA Start: 12-27-2019 Arthroscopy, knee, with meniscal root repair NEEDLE REV CRV DEL SYS FDA Start: 12-27-2019 Arthroscopy, knee, with meniscal root repair NEEDLE REV CRV DEL SYS FDA Start: 12-27-2019 Arthroscopy, knee, with meniscal root repair NEEDLE REV CRV DEL SYS FDA Start: 12-27-2019 Arthroscopy, knee, with meniscal root repair NEEDLE REV CRV DEL SYS FDA Start: 12-27-2019 Arthroscopy, knee, with meniscal root repair NEEDLE REV CRV DEL SYS FDA Start: 12-27-2019 Arthroscopy, knee, with meniscal root repair NEEDLE REV CRV DEL SYS FDA Start: 12-27-2019 Arthroscopy, knee, with meniscal root repair NEEDLE REV CRV DEL SYS FDA Start: 12-27-2019 Arthroscopy, knee, with meniscal root repair NEEDLE REV CRV DEL SYS FDA Start: 12-27-2019 Arthroscopy, knee, with meniscal root repair NEEDLE REV CRV DEL SYS FDA Start: 12-27-2019 Arthroscopy, knee, with meniscal root repair NEEDLE REV CRV DEL SYS FDA Start: 12-27-2019 Arthroscopy, knee, with meniscal root repair NEEDLE REV CRV DEL SYS FDA Start: 12-27-2019 Arthroscopy, knee, with meniscal root repair NEEDLE REV CRV DEL SYS FDA Start: 12-27-2019 Arthroscopy, knee, with meniscal root repair NEEDLE REV CRV DEL SYS FDA Start: 12-27-2019 Arthroscopy, knee, with meniscal root repair NEEDLE REV CRV DEL SYS FDA Start: 12-27-2019 Arthroscopy, knee, with meniscal root repair NEEDLE REV CRV DEL SYS FDA Start: 12-27-2019 Arthroscopy, knee, with meniscal root repair NEEDLE REV CRV DEL SYS FDA Start: 12-27-2019 Arthroscopy, knee, with meniscal root repair NEEDLE REV CRV DEL SYS FDA Start: 12-27-2019 Arthroscopy, knee, with meniscal root repair NEEDLE REV CRV DEL SYS FDA Start: 12-27-2019 Arthroscopy, knee, with meniscal root repair NEEDLE REV CRV DEL SYS FDA Start: 12-27-2019 Arthroscopy, knee, with meniscal root repair NEEDLE REV CRV DEL SYS FDA Start: 12-27-2019 Arthroscopy, knee, with meniscal root repair NEEDLE REV CRV DEL SYS FDA Start: 12-27-2019 Arthroscopy, knee, with meniscal root repair NEEDLE REV CRV DEL SYS FDA Start: 12-27-2019 Arthroscopy, knee, with meniscal root repair NEEDLE REV CRV DEL SYS FDA Start: 12-27-2019 Arthroscopy, knee, with meniscal root repair NEEDLE REV CRV DEL SYS FDA Start: 12-27-2019 Arthroscopy, knee, with meniscal root repair NEEDLE REV CRV DEL SYS FDA Start: 12-27-2019 Arthroscopy, knee, with meniscal root repair NEEDLE REV CRV DEL SYS FDA Start: 12-27-2019 Arthroscopy, knee, with meniscal root repair NEEDLE REV CRV DEL SYS FDA Start: 12-27-2019 Arthroscopy, knee, with meniscal root repair NEEDLE REV CRV DEL SYS FDA Start: 12-27-2019 Arthroscopy, knee, with meniscal root repair NEEDLE REV CRV DEL SYS FDA Start: 12-27-2019 Arthroscopy, knee, with meniscal root repair NEEDLE REV CRV DEL SYS FDA Start: 12-27-2019 Arthroscopy, knee, with meniscal root repair NEEDLE REV CRV DEL SYS FDA Start: 12-27-2019 Arthroscopy, knee, with meniscal root repair NEEDLE REV CRV DEL SYS FDA Start: 12-27-2019 Arthroscopy, knee, with meniscal root repair NEEDLE REV CRV DEL SYS FDA Start: 12-27-2019 Arthroscopy, knee, with meniscal root repair NEEDLE REV CRV DEL SYS FDA Start: 12-27-2019 Arthroscopy, knee, with meniscal root repair NEEDLE REV CRV DEL SYS FDA Start: 12-27-2019 Arthroscopy, knee, with meniscal root repair NEEDLE REV CRV DEL SYS FDA Start: 12-27-2019 Arthroscopy, knee, with meniscal root repair NEEDLE REV CRV DEL SYS FDA Start: 12-27-2019 Arthroscopy, knee, with meniscal root repair NEEDLE REV CRV DEL SYS FDA Start: 12-27-2019 Arthroscopy, knee, with meniscal root repair NEEDLE REV CRV DEL SYS FDA Start: 12-27-2019 Arthroscopy, knee, with meniscal root repair NEEDLE REV CRV DEL SYS FDA Start: 12-27-2019 Arthroscopy, knee, with meniscal root repair NEEDLE REV CRV DEL SYS FDA Start: 12-27-2019 Arthroscopy, knee, with meniscal root repair NEEDLE REV CRV DEL SYS FDA Start: 12-27-2019 Arthroscopy, knee, with meniscal root repair NEEDLE REV CRV DEL SYS FDA Start: 12-27-2019 Arthroscopy, knee, with meniscal root repair NEEDLE REV CRV DEL SYS FDA Start: 12-27-2019 Arthroscopy, knee, with meniscal root repair NEEDLE REV CRV DEL SYS FDA Start: 12-27-2019 Arthroscopy, knee, with meniscal root repair NEEDLE REV CRV DEL SYS FDA Start: 12-27-2019 Arthroscopy, knee, with meniscal root repair NEEDLE REV CRV DEL SYS FDA Start: 12-27-2019 Arthroscopy, knee, with meniscal root repair NEEDLE REV CRV DEL SYS FDA Start: 12-27-2019 Arthroscopy, knee, with meniscal root repair NEEDLE REV CRV DEL SYS FDA Start: 12-27-2019 Arthroscopy, knee, with meniscal root repair NEEDLE REV CRV DEL SYS FDA Start: 12-27-2019 Arthroscopy, knee, with meniscal root repair NEEDLE REV CRV DEL SYS FDA Start: 12-27-2019 Arthroscopy, knee, with meniscal root repair NEEDLE REV CRV DEL SYS FDA Start: 12-27-2019 Arthroscopy, knee, with meniscal root repair NEEDLE REV CRV DEL SYS FDA Start: 12-27-2019 Arthroscopy, knee, with meniscal root repair NEEDLE REV CRV DEL SYS FDA Start: 12-27-2019 Arthroscopy, knee, with meniscal root repair NEEDLE REV CRV DEL SYS FDA Start: 12-27-2019 Arthroscopy, knee, with meniscal root repair NEEDLE REV CRV DEL SYS FDA Start: 12-27-2019 Arthroscopy, knee, with meniscal root repair NEEDLE REV CRV DEL SYS FDA Start: 12-27-2019 Arthroscopy, knee, with meniscal root repair NEEDLE REV CRV DEL SYS FDA Start: 12-27-2019 Arthroscopy, knee, with meniscal root repair NEEDLE REV CRV DEL SYS FDA Start: 12-27-2019 Arthroscopy, knee, with meniscal root repair NEEDLE REV CRV DEL SYS FDA Start: 12-27-2019 Arthroscopy, knee, with meniscal root repair NEEDLE REV CRV DEL SYS FDA Start: 12-27-2019 Arthroscopy, knee, with meniscal root repair NEEDLE REV CRV DEL SYS FDA Start: 12-27-2019 Arthroscopy, knee, with meniscal root repair NEEDLE REV CRV DEL SYS FDA Start: 12-27-2019 Arthroscopy, knee, with meniscal root repair NEEDLE REV CRV DEL SYS FDA Start: 12-27-2019 Arthroscopy, knee, with meniscal root repair NEEDLE REV CRV DEL SYS FDA Start: 12-27-2019 Arthroscopy, knee, with meniscal root repair NEEDLE REV CRV DEL SYS FDA Start: 12-27-2019 Arthroscopy, knee, with meniscal root repair NEEDLE REV CRV DEL SYS FDA Start: 12-27-2019 Arthroscopy, knee, with meniscal root repair NEEDLE REV CRV DEL SYS FDA Start: 12-27-2019 Arthroscopy, knee, with meniscal root repair NEEDLE REV CRV DEL SYS FDA Start: 12-27-2019 Arthroscopy, knee, with meniscal root repair NEEDLE REV CRV DEL SYS FDA Start: 12-27-2019 Arthroscopy, knee, with meniscal root repair NEEDLE REV CRV DEL SYS FDA Start: 12-27-2019 Arthroscopy, knee, with meniscal root repair NEEDLE REV CRV DEL SYS FDA Start: 12-27-2019 Arthroscopy, knee, with meniscal root repair NEEDLE REV CRV DEL SYS FDA Start: 12-27-2019 Arthroscopy, knee, with meniscal root repair NEEDLE REV CRV DEL SYS FDA Start: 12-27-2019 Arthroscopy, knee, with meniscal root repair NEEDLE REV CRV DEL SYS FDA Start: 12-27-2019 Arthroscopy, knee, with meniscal root repair NEEDLE REV CRV DEL SYS FDA Start: 12-27-2019 Arthroscopy, knee, with meniscal root repair NEEDLE REV CRV DEL SYS FDA Start: 12-27-2019 BD PEN NEEDLE SHORT U/F, 31G X 8 MM (Miscellaneous) 1 Misc qid for 30 days Quantity: 100 {Misc} Refills: 3 Ordered: 03-Jul-2013 Mignon Burgos LPN Start : 02-Apr-2013 Active Start: 04-02-2013 ONETOUCH TEST (I n Vitro Strip) 1 Strip qid for 30 days Quantity: 100 {Strip} Refills: 2 Ordered: 22-Jul-2013 Mignon Burgos LPN Start : 22-Jul-2013 Active Start: 07-22-2013 RELION BLOOD GLUCOSE TEST (In Vitro Strip) 1 Strip Strip qid for 0 days Quantity: 100 {Strip} Refills: 11 Ordered: 28-Apr-2014 Cecy Alarcon DO, DO, Kathleen Start : 25-Jul-2013 Active Comments: Type I Diabetes Start: 07-25-2013 Comment on above: Type I Diabetes BD PEN NEEDLE SHORT U/F, 31G X 8 MM (Miscellaneous) 1 Misc qid for 30 days Quantity: 100 {Misc} Refills: 3 Ordered: 03-Jul-2013 Mignon Burgos LPN Start : 02-Apr-2013 Active Start: 04-02-2013 ONETOUCH TEST (I n Vitro Strip) 1 Strip qid for 30 days Quantity: 100 {Strip} Refills: 2 Ordered: 22-Jul-2013 Mignon Burgos LPN Start : 22-Jul-2013 Active Start: 07-22-2013 RELION BLOOD GLUCOSE TEST (In Vitro Strip) 1 Strip Strip qid for 0 days Quantity: 100 {Strip} Refills: 11 Ordered: 28-Apr-2014 Cecy Alarcon DO, DO, Kathleen Start : 25-Jul-2013 Active Comments: Type I Diabetes Start: 07-25-2013 Comment on above: Type I Diabetes BD PEN NEEDLE SHORT U/F, 31G X 8 MM (Miscellaneous) 1 Misc qid for 30 days Quantity: 100 {Misc} Refills: 3 Ordered: 03-Jul-2013 Mignon Burgos LPN Start : 02-Apr-2013 Active Start: 04-02-2013 ONETOUCH TEST (I n Vitro Strip) 1 Strip qid for 30 days Quantity: 100 {Strip} Refills: 2 Ordered: 22-Jul-2013 Mignon Burgos LPN Start : 22-Jul-2013 Active Start: 07-22-2013 RELION BLOOD GLUCOSE TEST (In Vitro Strip) 1 Strip Strip qid for 0 days Quantity: 100 {Strip} Refills: 11 Ordered: 28-Apr-2014 Cecy Alarcon DO, DO, Kathleen Start : 25-Jul-2013 Active Comments: Type I Diabetes Start: 07-25-2013 Comment on above: Type I Diabetes BD PEN NEEDLE SHORT U/F, 31G X 8 MM (Miscellaneous) 1 Misc qid for 30 days Quantity: 100 {Misc} Refills: 3 Ordered: 03-Jul-2013 Mignon Burgos LPN Start : 02-Apr-2013 Active Start: 04-02-2013 ONETOUCH TEST (I n Vitro Strip) 1 Strip qid for 30 days Quantity: 100 {Strip} Refills: 2 Ordered: 22-Jul-2013 Mignon Burgos LPN Start : 22-Jul-2013 Active Start: 07-22-2013 RELION BLOOD GLUCOSE TEST (In Vitro Strip) 1 Strip Strip qid for 0 days Quantity: 100 {Strip} Refills: 11 Ordered: 28-Apr-2014 Cecy Alarcon DO, DO, Kathleen Start : 25-Jul-2013 Active Comments: Type I Diabetes Start: 07-25-2013 Comment on above: Type I Diabetes BD PEN NEEDLE SHORT U/F, 31G X 8 MM (Miscellaneous) 1 Misc qid for 30 days Quantity: 100 {Misc} Refills: 3 Ordered: 03-Jul-2013 Mignon Burgos LPN Start : 02-Apr-2013 Active Start: 04-02-2013 ONETOUCH TEST (I n Vitro Strip) 1 Strip qid for 30 days Quantity: 100 {Strip} Refills: 2 Ordered: 22-Jul-2013 Mignon Burgos LPN Start : 22-Jul-2013 Active Start: 07-22-2013 RELION BLOOD GLUCOSE TEST (In Vitro Strip) 1 Strip Strip qid for 0 days Quantity: 100 {Strip} Refills: 11 Ordered: 28-Apr-2014 Cecy Alarcon DO, DO, Kathleen Start : 25-Jul-2013 Active Comments: Type I Diabetes Start: 07-25-2013 Comment on above: Type I Diabetes BD PEN NEEDLE SHORT U/F, 31G X 8 MM (Miscellaneous) 1 Misc qid for 30 days Quantity: 100 {Misc} Refills: 3 Ordered: 03-Jul-2013 Mignon Burgos LPN Start : 02-Apr-2013 Active Start: 04-02-2013 ONETOUCH TEST (I n Vitro Strip) 1 Strip qid for 30 days Quantity: 100 {Strip} Refills: 2 Ordered: 22-Jul-2013 Mignon Burgos LPN Start : 22-Jul-2013 Active Start: 07-22-2013 RELION BLOOD GLUCOSE TEST (In Vitro Strip) 1 Strip Strip qid for 0 days Quantity: 100 {Strip} Refills: 11 Ordered: 28-Apr-2014 Cecy Alarcon DO, DO, Kathleen Start : 25-Jul-2013 Active Comments: Type I Diabetes Start: 07-25-2013 Comment on above: Type I Diabetes BD PEN NEEDLE SHORT U/F, 31G X 8 MM (Miscellaneous) 1 Misc qid for 30 days Quantity: 100 {Misc} Refills: 3 Ordered: 03-Jul-2013 Mignon Burgos LPN Start : 02-Apr-2013 Active Start: 04-02-2013 ONETOUCH TEST (I n Vitro Strip) 1 Strip qid for 30 days Quantity: 100 {Strip} Refills: 2 Ordered: 22-Jul-2013 Mignon Burgos LPN Start : 22-Jul-2013 Active Start: 07-22-2013 RELION BLOOD GLUCOSE TEST (In Vitro Strip) 1 Strip Strip qid for 0 days Quantity: 100 {Strip} Refills: 11 Ordered: 28-Apr-2014 Cecy Alarcon DO, DO, Kathleen Start : 25-Jul-2013 Active Comments: Type I Diabetes Start: 07-25-2013 Comment on above: Type I Diabetes BD PEN NEEDLE SHORT U/F, 31G X 8 MM (Miscellaneous) 1 Misc qid for 30 days Quantity: 100 {Misc} Refills: 3 Ordered: 03-Jul-2013 Mignon Burgos RN Start : 02-Apr-2013 Active Start: 04-02-2013 ONETOUCH TEST (I n Vitro Strip) 1 Strip qid for 30 days Quantity: 100 {Strip} Refills: 2 Ordered: 22-Jul-2013 Mignon Burgos RN Start : 22-Jul-2013 Active Start: 07-22-2013 RELION BLOOD GLUCOSE TEST (In Vitro Strip) 1 Strip Strip qid for 0 days Quantity: 100 {Strip} Refills: 11 Ordered: 28-Apr-2014 Cecy Alarcon DO, DO, Kathleen Start : 25-Jul-2013 Active Comments: Type I Diabetes Start: 07-25-2013 Comment on above: Type I Diabetes BD PEN NEEDLE SHORT U/F, 31G X 8 MM (Miscellaneous) 1 Misc qid for 30 days Quantity: 100 {Misc} Refills: 3 Ordered: 03-Jul-2013 Mignon Burgos RN Start : 02-Apr-2013 Active Start: 04-02-2013 ONETOUCH TEST (I n Vitro Strip) 1 Strip qid for 30 days Quantity: 100 {Strip} Refills: 2 Ordered: 22-Jul-2013 Mignon Burgos RN Start : 22-Jul-2013 Active Start: 07-22-2013 RELION BLOOD GLUCOSE TEST (In Vitro Strip) 1 Strip Strip qid for 0 days Quantity: 100 {Strip} Refills: 11 Ordered: 28-Apr-2014 Cecy Alarcon DO, DO, Kathleen Start : 25-Jul-2013 Active Comments: Type I Diabetes Start: 07-25-2013 Comment on above: Type I Diabetes BD PEN NEEDLE SHORT U/F, 31G X 8 MM (Miscellaneous) 1 Misc qid for 30 days Quantity: 100 {Misc} Refills: 3 Ordered: 03-Jul-2013 Mignon Burgos LPN Start : 02-Apr-2013 Active Start: 04-02-2013 ONETOUCH TEST (I n Vitro Strip) 1 Strip qid for 30 days Quantity: 100 {Strip} Refills: 2 Ordered: 22-Jul-2013 Mignon Burgos LPN Start : 22-Jul-2013 Active Start: 07-22-2013 RELION BLOOD GLUCOSE TEST (In Vitro Strip) 1 Strip Strip qid for 0 days Quantity: 100 {Strip} Refills: 11 Ordered: 28-Apr-2014 Cecy Alarcon DO, DO, Kathleen Start : 25-Jul-2013 Active Comments: Type I Diabetes Start: 07-25-2013 Comment on above: Type I Diabetes BD PEN NEEDLE SHORT U/F, 31G X 8 MM (Miscellaneous) 1 Misc qid for 30 days Quantity: 100 {Misc} Refills: 3 Ordered: 03-Jul-2013 Mignon Burgos RN Start : 02-Apr-2013 Active Start: 04-02-2013 ONETOUCH TEST (I n Vitro Strip) 1 Strip qid for 30 days Quantity: 100 {Strip} Refills: 2 Ordered: 22-Jul-2013 Mignon Burgos RN Start : 22-Jul-2013 Active Start: 07-22-2013 RELION BLOOD GLUCOSE TEST (In Vitro Strip) 1 Strip Strip qid for 0 days Quantity: 100 {Strip} Refills: 11 Ordered: 28-Apr-2014 Cecy Alarcon DO, DO, Kathleen Start : 25-Jul-2013 Active Comments: Type I Diabetes Start: 07-25-2013 Comment on above: Type I Diabetes Pen Needle, Diabetic (Bd Ultra-Fine Viviana Pen Needle) 32 gauge x 5/32 needle Start: 08-20-2018 End: 08-20-2018 Pen Needle, Diabetic (Bd Ultra-Fine Viviana Pen Needle) 32 gauge x 5/32 needle Start: 08-22-2019 End: 11-27-2019 Pen Needle, Diabetic (Bd Ultra-Fine Viviana Pen Needle) 32 gauge x 5/32 needle Start: 08-20-2018 End: 08-20-2018 Pen Needle, Diabetic (Bd Ultra-Fine Viviana Pen Needle) 32 gauge x 5/32 needle Start: 08-22-2019 End: 11-27-2019 ONETOUCH TEST (I n Vitro Strip) 1 Strip qid for 30 days Quantity: 100 {Strip} Refills: 2 Ordered: 22-Jul-2013 Mignon Burgos RN Start : 22-Jul-2013 Active Start: 07-22-2013 RELION BLOOD GLUCOSE TEST (In Vitro Strip) 1 Strip Strip qid for 0 days Quantity: 100 {Strip} Refills: 11 Ordered: 28-Apr-2014 Cecy Alarcon DO, DO, Kathleen Start : 25-Jul-2013 Active Comments: Type I Diabetes Start: 07-25-2013 Comment on above: Type I Diabetes Pen Needle, Diabetic (Bd Ultra-Fine Viviana Pen Needle) 32 gauge x 5/32 needle Start: 08-20-2018 End: 08-20-2018 Pen Needle, Diabetic (Bd Ultra-Fine Viviana Pen Needle) 32 gauge x 5/32 needle Start: 08-22-2019 End: 11-27-2019 BD PEN NEEDLE SHORT U/F, 31G X 8 MM (Miscellaneous) 1 Misc qid for 30 days Quantity: 100 {Misc} Refills: 3 Ordered: 03-Jul-2013 Mignon Burgos RN Start : 02-Apr-2013 Active Start: 04-02-2013 ONETOUCH TEST (I n Vitro Strip) 1 Strip qid for 30 days Quantity: 100 {Strip} Refills: 2 Ordered: 22-Jul-2013 Mignon Burgos RN Start : 22-Jul-2013 Active Start: 07-22-2013 RELION BLOOD GLUCOSE TEST (In Vitro Strip) 1 Strip Strip qid for 0 days Quantity: 100 {Strip} Refills: 11 Ordered: 28-Apr-2014 Cecy Alarcon DO, DO, Kathleen Start : 25-Jul-2013 Active Comments: Type I Diabetes Start: 07-25-2013 Comment on above: Type I Diabetes Pen Needle, Diabetic (Bd Ultra-Fine Viviana Pen Needle) 32 gauge x 5/32 needle Start: 08-20-2018 End: 08-20-2018 Pen Needle, Diabetic (Bd Ultra-Fine Viviana Pen Needle) 32 gauge x 5/32 needle Start: 08-22-2019 End: 11-27-2019 Check blood suga rs 3-4 times daily [id number] Start: 12-19-2016 End: 12-05-2023 Pen Needle, Diabetic (Bd Ultra-Fine Viviana Pen Needle) 32 gauge x 5/32 needle Start: 08-20-2018 End: 08-20-2018 Pen Needle, Diabetic (Bd Ultra-Fine Viviana Pen Needle) 32 gauge x 5/32 needle Start: 08-22-2019 End: 11-27-2019 Pen Needle, Diabetic (Bd Ultra-Fine Viviana Pen Needle) 32 gauge x 5/32 needle Start: 08-20-2018 End: 08-20-2018 Pen Needle, Diabetic (Bd Ultra-Fine Viviana Pen Needle) 32 gauge x 5/32 needle Start: 08-22-2019 End: 11-27-2019 Pen Needle, Diabetic (Bd Ultra-Fine Viviana Pen Needle) 32 gauge x 5/32 needle Start: 08-20-2018 End: 08-20-2018 Pen Needle, Diabetic (Bd Ultra-Fine Viviana Pen Needle) 32 gauge x 5/32 needle Start: 08-22-2019 End: 11-27-2019 Pen Needle, Diabetic (Bd Ultra-Fine Viviana Pen Needle) 32 gauge x 5/32 needle Start: 08-20-2018 End: 08-20-2018 Pen Needle, Diabetic (Bd Ultra-Fine Viviana Pen Needle) 32 gauge x 5/32 needle Start: 08-22-2019 End: 11-27-2019 Functional Status Date Assessment Result Facility 11-22-2019 LP-IR Score LP-IR Score 70 [facility] Work Phone: Comment on above: INSULIN RESISTANCE M ARKER <--Insulin Sensitive Insulin Resistant--> Percentile in Reference PopulationInsulin Resistance ScoreLP-IR Score Low 25th 50th 75th High <27 27 45 63 >63LP-IR Score is inaccurate if patient is non-fasting. .The LP-IR score is a laboratory developed index that has beenassociated with insulin resistance and diabetes risk and should beused as one component of a physician's clinical assessment. Test(s) 078304-AAN-K ; 079335-HDV-A; 962591-TBB-K; 889182-Jrsqpxvxgewvy; 826190-Bhmropspnyt, Total; 205862-MAW-S (Total);199712-Etajy LDL-P; 509288-BRE Size; 202434-WM-UL Scorewas developed and its performance characteristics determinedby [employer]. It has not been cleared or approved by the Foodand Drug Administration.PATIENT WAS FASTINGPERFORMED BY: [facility] [id number] BY: [employer] [id number] [facility] [id number] 02-18-2019 LP-IR Score LP-IR Score 62 [facility] Work Phone: Comment on above: INSULIN RESISTANCE M ARKER <--Insulin Sensitive Insulin Resistant--> Percentile in Reference PopulationInsulin Resistance ScoreLP-IR Score Low 25th 50th 75th High <27 27 45 63 >63LP-IR Score is inaccurate if patient is non-fasting. .The LP-IR score is a laboratory developed index that has beenassociated with insulin resistance and diabetes risk and should beused as one component of a physician's clinical assessment. TheLP-IR score listed above has not been cleared by the [place] Food andDrug Administration. PATIENT NOT FASTINGP ERFORMED BY: [employer] [id number] BY: [email or web address] [facility] [id number] Mental Status Date Assessment Result Facility 12-21-2021 Cognitive function Voice/Name [facility] Work Phone: Clinical Notes 12-05-2023 to 02-04-2025 Note Date & Type Note Facility 02-04-2025 Procedure note [facility] 01-15-2025 Progress note [facility] 01-15-2025 Progress note Note Date/Time January 15, 2025 3:35pm [facility] [facility] [address] [place], [place] [address] OFFICE VISIT Date of Service: 01/15/25 MR#: [id number] Acct: [id number] Name: CIRILO CEBALLOS Rep #: [id number] : 1965 Provider: Dr. Josh Sanchez, Age/Sex: 59/F Location: [facility] [place] Status: Signed Intake Vital Signs 12/10/24 12:58 01/15/25 15:00 Height 5 ft 2 in 5 ft 2 in Weight: 163 lb 6 oz 160 lb BMI 29.9 29.2 BP 128/81 H Blood Pressure Location Lt brachial Position Sitting Pulse 65 Pulse Source Monitor Pulse Oximetry (%) 95 Oxygen Delivery Method room air Intake Visit Reasons: LEFT HAND Chief Complaint: Left hand pain Accompanied by: Self Is patient in pain?: Yes Pain scale (1-10): 3 Allergies No Known Allergies Allergy (Verified 01/15/25 15:02) Medications ?Medication ?Instructions ?Recorded ?Confirmed ?Type flash glucose sensor #1 ea 02/08/21 01/15/25 Hist ory cholecalciferol (vitamin D3) 125 125 mcg PO DAILY 01/0701/15/25 History mcg (5,000 unit) capsule propranolol 20 mg tablet 20 mg PO BID PRN 02/20/24 History sertraline 50 mg tablet 50 mg PO QDAY 02/20/2401/15 History amlodipine 5 mg tablet 5 mg PO QDAY 04/15/24 History celecoxib 100 mg capsule (Celebrex) 100 mg PO BID #60 caps 04/15/24 01/15/25 Rx atorvastatin 20 mg tablet 20 mg PO QDAY #90 tabs 06/1701/15/25 Rx blood-glucose sensor (Dexcom G7 #3 ea 08/27/24 5 Rx Sensor device) insulin aspart U-100 100 unit/mL 100 unit subcut DAILY #30 mL 12/10/24 01/15/25 Rx subcutaneous solution (Novolog U-100 Insulin aspart) insulin pump cart,auto,BT,G6/7 #12 ea 12/10/24 5 Rx (Omnipod 5 G6-G7 Pods (Gen 5) subcutaneous cartridge) levothyroxine 75 mcg tablet 75 mcg PO DAILY thyroid #9 0 tabs 12/10/24 01/15/25 Rx Have you fallen in the past year?: No PFSH Medical History Insulin pump titration Presence of insulin pump Hypercalcemia Diabetes mellitus type 1 PONV (postoperative nausea and vomiting) Postmenopausal Wears glasses Arthritis Easy bruising Dietary restriction Non-smoker Paresthesia Knee pain HTN (hypertension) Thyroid nodule Hyperlipidemia Hypothyroidism Diabetes type 1, controlled Surgical History History of arthroscopic knee surgery H/O colonoscopy History of History of lumpectomy of right breast History of carpal tunnel release of both wrists Family History Mother Diabetes Bleeding disorder High cholesterol Cancer Heart disease Hypertension Melanoma Father Alcoholism Sister Colon cancer Diabetes Brother Diabetes Social History Smoking Status: Never smoker second hand exposure: No alcohol intake: current substance use type: does not use HPI LEFT HAND Details: This documentation accurately reflects the service provided and the decisions made by me, Dr. Savage Sanchez, DO 01/15/25 1500. Part of today?s visit was documented by Tonie Bullard MA, acting as scribe. CIRILO CEBALLOS is a 59 year old F here today for left hand. She is having complaints of numbness tingling and burning in her radial 3 digits. She notes that it wakes her up from night is so painful at times she does not want to movethe digits. She has tried wearing a brace for 3 months without any relief. She denies any injections or physical therapy. Patient notes that she is right hand dominant. She denies any cervical spine pain, but on occasion gets a burning pain in her neck not often. She denies dropping items. She does admit to some retrograde symptoms to her elbow but not past this. Patient does have diabetes, but denies any blood thinners. Patient denies any smoking or drug use. Ortho Exam General General: Yes no acute distress Neurologic: Yes alert and Yes oriented x3 Psychologic: Yes reasonable and appropriate Right Wrist/Hand Skin/Wound: No Swelling and No Ecchymosis Left Wrist/Hand Skin/Wound: Yes CDI, No Swelling, No Ecchymosis, Yes nail intact, Yes capillary refill normal and No erythema Left Wrist: Yes ROM-Extension 0-60, Yes ROM-Flexion 0-80, Yes ROM-Pronation 0-80, Yes ROM-Supination 0-90, Yes Durken's Test and Yes Phalen's WRIST: full flexion, extension, supination and pronation of wrist. good strength of hand and abduction of fingers. cap refill normal She has symptoms at baseline. Mildly decreased cervical extension otherwise full range of motion negative Spurling's Spine Details: good cervical spine ROM. negative spurlings SPINE TESTING CERVICAL THORACIC LUMBAR Musculoskeletal Strength 0=absent - 5=normal Coding Level of Care Code Off vis,est,level 3 Diagnoses Carpal tunnel syndrome on left G56.02 Assessment and Plan Assessment and Plan (1) Carpal tunnel syndrome on left: Orders: Orders NCS and/or EMG - Left Upper Today G56.02 - Carpal tunnel syndrome, left upper limb Plan Spoke with the patient about her symptoms likely from carpal tunnel syndrome. Patient should have an EMG/NCS to evaluate for carpal tunnel syndrome. Spoke with her about her options depending on the results of the EMG- continued bracing, take an oral anti-inflammatory, injections, occupational therapy or carpal tunnel release. Follow up after EMG or sooner if pain, swelling, numbness or associated symptoms, or concerns develop. All questions answered. Patient in agreement of plan. Clinical Quality Measures Falls Risk Screening/Assistive Devices Have you fallen in the past year?: No 01/15/25 1265 <Electronically signed by Savage Matthews o DO> Date _ Savaeg Sanchez DO Cosigner Signature: Date (if applicable) CC: ~ [facility] Work Phone: 1(390) 403-997705-27-2025 Evaluation note* Diagnosis Onset Date Resolution Status Admit Date Diabetes mellitus type 1 chronic December 10, 2024 12:57pm HTN (hypertension) chronic December 102024 12:57pm Hypothyroidism (acquired) chronic December 10, 2024 12:57pm Mixed hyperlipidemia chronic December 10, 2024 12:57pm Overweight (BMI 25.0-29.9) chronic December 10, 2024 12:57pm Presence of insulin pump chronic December 10, 2024 12:57pm Carpal tunnel syndrome on left nonea ctive January 15, 2025 2:54pm [facility] Work Phone: 1(392) 590-545305-21-2024 NoteHNO ID: [id number] Author: IVANNA GOLDEN LPN Service: ? Author Type: LICENSED NURSE Type: Progress Notes Filed: 12/05/2023 11:28 Note Text: Per Dr. Noble Cirilo was provided with powerstep original inserts, size 6.5, and instructed/educated in its application, wear, and care. All questions were answered, and patient was able to demonstrate competence with the necessary skills to utilize the above equipment. Ivanna Golden LPKet[facility]05-21-2024 NoteHNO ID: [id number] Author: AMY NOBLE, ? Service: ? Author Type: Physician Type: Progress Notes Filed: 12/05/2023 11:25 Note Text: Initial Office Visit Subjective: This 58 year old female presents to clinic for diabetic foot check. Patient has the following complaints: right foot pain. Patient presents to clinic for evaluation of right foot. Had been experiencing pain to the lateral aspect of right 5th metatarsal head. Patient has noticed the pain is now traveling proximally to the 5th metatarsal base and has noticed the pain is affecting her arch. The pain is all the times but varies in intensity. She states the more active she is, the more pain she has. Patient will treat with ibuprofen but she takes that intermittently because it upsets her stomach. Patient admits to being diabetic for 13 years now. Patient +B/T/N in feet at this time. Patient -pain in legs when walking. No other pedal complaints at this time. No change in medications or medical history since last visit. States her last A1c (outside [facility]) was 7.1. Of note, she states she is deficient in vitamin d and is on 2000 units of vitamin d per day. PAIN EVALUATION 12/05/2023 1104 Pain Level: 7 Pain Location: Foot-Right Description: Sharp Duration Amount of Time: 3 Duration Units: Months Frequency: Intermittent Intervention/Comfort measure: Relaxation;Reposition Hemoglobin A1C (%) Date Value 04/05/2016 9.5 10/05/2015 9.1 12/24/2014 8.0 09/23/2014 8.0 Hemoglobin A1C (POCT) (%) Date Value 07/27/2016 10.2 PCP: Cecy Alarcon DO, DO PAST MEDICAL HISTORY Diagnosis Date Goiter Hypercholesteremia Hypertension Type I (juvenile type) diabetes mellitus without mention of complication, not stated as uncontrolled (HCC) Current Outpatient Medications Medication Sig OMNIPOD 5 G6 PODS, GEN 5, crtg levothyroxine (SYNTHROID) 75 mcg tablet propranolol (INDERAL) 20 mg tablet sertraline (ZOLOFT) 50 mg tablet DEXCOM G6 TRANSMITTER en as directed. ibuprofen (MOTRIN) 800 mg tablet Take 800 mg by mouth three times a day as needed. atorvastatin (LIPITOR) 20 mg tablet Take 1 tablet by mouth once daily. lisinopril (ZESTRIL, PRINIVIL) 5 mg tablet Take 1 tablet by mouth once daily. multivitamin tablet Take 1 tablet by mouth once daily. No current facility-administered medications for this visit. ALLERGIES No Known Allergies PAST SURGICAL HISTORY Procedure Laterality Date DELIVERY ONLY 2003 , low transverse NEUROPLASTY AND/TRANSPOS MEDIAN NRV CARPAL TUNNE 1999 Carpal tunnel decomp PAST SURGICAL HISTORY OF 92-93 Tumor on L breast removed FAMILY HISTORY Problem Relation Age of Onset Diabetes Mother Heart Mother Diabetes Sister Diabetes Brother Social History Tobacco Use Smoking status: Never Substance Use Topics Alcohol use: No Drug use: No REVIEW OF SYSTEMS GENERAL: Negative for Malaise, significant weight loss, fever RESPIRATORY: Negative for cough, wheezing and shortness of breath CARDIOVASCULAR: Negative for chest pain, leg swelling and palpitations GI: Negative for abdominal discomfort, blood in stools or black stools and change in bowel habits : Negative for dysuria, frequency and incontinence MUSCULOSKELETAL: Negative for joint pain or swelling, back pain, and muscle pain. SKIN: Negative for lesions, rash, and itching. HEMATOLOGY/LYMPHOLOGY Negative for prolonged bleeding, bruising easily, and swollen nodes. ENDOCRINE: Negative for cold or heat intolerance, polyuria, polydipsia and goiter. NEURO: negative The remainder of the review of systems is noncontributory. Objective: Patient presents to clinic ambulating in [facility] Constitutional: Pt is a well developed 58 year old female who is alert, oriented, cooperative and in no apparent distress. Eyes: Following during examination. No redness or drainage. Respiratory: RR normal and nonlabored. Even breathing. No evidence of distress. Psychology: Patient is engaged during conversation. Normal affect and mood. Does not appear depressed or anxious. Vasc: DP and PT pulses are palpable bilateral. CFT is less than 5 seconds bilateral. Skin temperature is warm to warm proximal to distal bilateral. There is no edema or varicosities noted. Hair growth present. Neuro: Protective sensation is intact to the foot and toes when tested with the 5.07 SWM bilateral. Vibratory sensation is intact at the hallux bilateral. No Significant neurological defecits. Derm: Inspection and palpation performed. Nails 1-5 b/l are normal in length and thickness. Skin is of normal turgor and texture. Hyperkeratosis noted to not present. NO ulcerations, scars, verruca or other lesions noted. Ortho: Ankle joint DF is full with the knee extended and full with knee flexed. No pain or crepitus noted. STJ, MTJ ROM are full and free of pain or crepitus. Muscle strength is 5/5 for dorsiflexors, planta (more content not included)...[facility]05-21-2024 NoteHNO ID: [id number] Author: IVANNA GOLDEN LPN Service: ? Author Type: LICENSED NURSE Type: Progress Notes Filed: 12/05/2023 11:25 Note Text: [facility]05-21-2024 NoteHNO ID: [id number] Author: KRISTI GARZA RT(R) Service: ? Author Type: Tour Manager Type: Progress Notes Filed: 12/05/2023 10:52 Note Text: Radiology Service Progress Note PATIENT NAME: Cirilo Ceballos DATE OF SERVICE: December 05, 2023 TIME: 10:39 AM PATIENT IDENTITY VERIFICATION COMPLETED USING TWO (2) IDENTIFIERS: Name and Date of confirmed by patient verbally. FALL SCREENING: Has the patient had 2 falls in the last year or 1 fall with injury or currently using an Ambulatory Assistive Device (Walker, Cane, Wheelchair, Crutches, etc.)? No PATIENT GENDER DATA: Female. status: : No status: NO. PATIENT RELEVANT IMPLANT DATA REVIEWED: Yes PATIENT PRESENTS WITH AN IMPLANTABLE OR ATTACHED VENETIAN BLIND MACHINE OPERATOR: No RADIOLOGY DEPARTMENT: General X-ray: Exam(s) Completed: Lower Extremity X-Ray(s): Foot, Right PERIPHERAL IV DATA: Not applicable SIGNED BY: RT Ten(R) December 05, 2023 10:[address] [facility]05-21-2024 History of Present illness Narrative* Ivanna Golden LPN - 12/05/2023 11:[address] Noble, Cirilo was provided with powerstep original inserts, size 6.5, and instructed/educated in its application, wear, and care. All questions were answered, and patient was able to demonstrate competence with the necessary skills to utilize the above equipment. Ivanna Golden LPN * Amy Noble - 12/05/2023 11:10 AM EDT Initial Office Visit Subjective: This 58 year old female presents to clinic for diabetic foot check. Patient has the following complaints: right foot pain. Patient presents to clinic for evaluation of right foot. Had been experiencing pain to the lateral aspect of right 5th metatarsal head. Patient has noticed the pain is now traveling proximally to the5th metatarsal base and has noticed the pain is affecting her arch. The pain is all the times but varies in intensity. She states the more active she is, the more pain she has. Patient will treat with ibuprofen but she takes that intermittently because it upsets her stomach. Patient admits to being diabetic for 13 years now. Patient +B/T/N in feet at this time. Patient -pain in legs when walking. No other pedal complaints at this time. No change in medications or medical history since last visit. States her last A1c (outside [facility]) was 7.1. Of note, she states she is deficient in vitamin d and is on 2000 units of vitamin d per day. PAIN EVALUATION 12/05/2023 1104 Pain Level: 7 Pain Location: Foot-Right Description: Sharp Duration Amount of Time: 3 Duration Units: Months Frequency: Intermittent Intervention/Comfort measure: Relaxation;Reposition Hemoglobin A1C (%) Date Value 04/05/2016 9.5 10/05/2015 9.1 12/24/2014 8.0 09/23/2014 8.0 Hemoglobin A1C (POCT) (%) Date Value 07/27/2016 10.2 PCP: Cecy Alarcon DO, DO PAST MEDICAL HISTORY Diagnosis Date Goiter Hypercholesteremia Hypertension Type I (juvenile type) diabetes mellitus without mention of complication, not stated as uncontrolled (HCC) Current Outpatient Medications Medication Sig OMNIPOD 5 G6 PODS, GEN 5, crtg levothyroxine (SYNTHROID) 75 mcg tablet propranolol (INDERAL) 20 mg tablet sertraline (ZOLOFT) 50 mg tablet DEXCOM G6 TRANSMITTER en as directed. ibuprofen (MOTRIN) 800 mg tablet Take 800 mg by mouth three times a day as needed. atorvastatin (LIPITOR) 20 mg tablet Take 1 tablet by mouth once daily. lisinopril (ZESTRIL, PRINIVIL) 5 mg tablet Take 1 tablet by mouth once daily. multivitamin tablet Take 1 tablet by mouth once daily. No current facility-administered medications for this visit. ALLERGIES No Known Allergies PAST SURGICAL HISTORY Procedure Laterality Date DELIVERY ONLY 2003 , low transverse NEUROPLASTY &/TRANSPOS MEDIAN NRV CARPAL TUNNE 1999 Carpal tunnel decomp PAST SURGICAL HISTORY OF 92-93 Tumor on L breast removed FAMILY HISTORY Problem Relation Age of Onset Diabetes Mother Heart Mother Diabetes Sister Diabetes Brother Social History Tobacco Use Smoking status: Never Substance Use Topics Alcohol use: No Drug use: No REVIEW OF SYSTEMS GENERAL: Negative for Malaise, significant weight loss, fever RESPIRATORY: Negative for cough, wheezing and shortness of breath CARDIOVASCULAR: Negative for chest pain, leg swelling and palpitations GI: Negative for abdominal discomfort, blood in stools or black stools and change in bowel habits : Negative for dysuria, frequency and incontinence MUSCULOSKELETAL: Negative for joint pain or swelling, back pain, and muscle pain. SKIN: Negative for lesions, rash, and itching. HEMATOLOGY/LYMPHOLOGY Negative for prolonged bleeding, bruising easily, and swollen nodes. ENDOCRINE: Negative for cold or heat intolerance, polyuria, polydipsia and goiter. NEURO: negative The remainder of the review of systems is noncontributory. Objective: Patient presents to clinic ambulating in [facility] Constitutional: Pt is a well developed 58 year old female who is alert, oriented, cooperative and in no apparent distress. Eyes: Following during examination. No redness or drainage. Respiratory: RR normal and nonlabored. Even breathing. No evidence of distress. Psychology: Patient is engaged during conversation. Normal affect and mood. Does not appear depressed or anxious. Vasc: DP and PT pulses are palpable bilateral. CFT is less than 5 seconds bilateral. Skin temperature is warm to warm proximal to distal bilateral. There is no edema or varicosities noted. Hair growth present. Neuro: Protective sensation is intact to the foot and toes when tested with the 5.07 SWM bilateral.Vibratory sensation is intact at the hallux bilateral. No Significant neurological defecits. Derm: Inspection and palpation performed. Nails 1-5 b/l are normal in length and thickness. Skin isof normal turgor and texture. Hyperkeratosis noted to not present. NO ulcerations, scars, verruca or other lesions noted. Ortho: Ankle joint DF is full with the knee extended and full with knee flexed. No pain or crepitusnoted. STJ, MTJ ROM are full and free of pain or crepitus. Muscle strength is 5/5 for dorsiflexors,plantarflexors, inverters, everters. Digital deformities include none. Pain present to right 5th metatarsal base. Subtle tailors bunion right. Xrays reviewed. No acute fracture. Generalized osteopenia noted. Sclerotic band noted to base of 5th metatarsal Assessment: (X50.3XXA) Repetitive stress injury (primary encounter diagnosis) diabetes Plan: 1. Patient was seen and evaluated. 2. Patient was instructed on the continued importance of diabetic foot care along with proper diet and keeping their blood sugar under control to prevent complications. Patient appears to be well controlled with diabetes Instructions given both oral and written. 3. Discussed pain in right 5th metatarsal base. Slight pronation on exam. This could be leading to pain along lateral column of foot. Recommend good supportive shoes and will dispense powerstep gel insert. Reviewed xrays. Will repeat xrays to assure no stress fracture. May discuss xray with radiology staff pending read 4. Offered boot today. She declined. 5. Contineu with vitamin d supplement. Amy Noble DPM * Ivanna Golden LPN - 12/05/2023 11:01 AM EDT asparshea [facility] Instructions* Patient Instructions* Amy Noble - 12/05/2023 11:20 AM EDT Powerstep Original Full length. Can purchase at [facility] [employer] and boots,shoes and more here in [place], [employer] in [place] or [place]. Also can find in [employer] in [facility]. Powersteps can also be purchased online, starting around $45.00 If you have a metatarsal or dancer pad for your feet apply the pad directly to the insole so you can interchange between your shoes. Find a shoe with a removable insole and take this out and replace with your powerstep insole. Always bring powersteps with you when shopping for shoes so that you can make sure that everything fits well together Diabetes Foot Care Instructions When you have diabetes, proper foot care is very important. Poor foot care may lead to amputation of a foot or leg. As a person with diabetes, you are more vulnerable to foot problems, because diabetes can damage your nerves and reduce blood flow to your feet. Here are some diabetes foot care tips to follow: Wash and Dry Your Feet Daily Use mild soaps Use warm water Pat your skin dry; do not rub. Thoroughly dry your feet. After washing, use lotion on your feet to prevent cracking. Do not put lotion between your toes. Examine Your Feet Each Day Check the tops and bottoms of your feet. Have someone else look at your feet if you cannot see them. Check for dry, cracked skin. Look for blisters, cuts, scratches, or other sores. Check for redness, increased warmth, or tenderness when touching any area of your feet. Check for ingrown toenails, corns, and calluses. If you get a blister or sore from your shoes, do not pop it. Apply a bandage and wear a differentpair of shoes. Take Care of Your Toenails Cut toenails after bathing, when they are soft. Cut toenails straight across and smooth with a nail file. Avoid cutting into the corners of toes. Do not cut cuticles. If you have neuropathy (or decreased sensation in your feet) a detail assembler should always cut your toenails. Be Careful When Exercising Walk and exercise in comfortable shoes. Do not exercise when you have open sores on your feet. Protect Your Feet With Shoes and Socks Never go barefoot. Always protect your feet by wearing shoes or hard-soled slippers or footwear. Avoid shoes with high heels and pointed toes. Avoid shoes that expose your toes or heels (such as open-toed shoes or sandals). These types of shoes increase your risk for injury and potential infections. Try on new footwear with the type of socks you usually wear. Do not wear new shoes for more than an hour at a time. Change your socks daily. Look and feel inside your shoes before putting them on to make sure there are no foreign objects orrough areas. Avoid tight socks. Wear natural-fiber socks (cotton, wool, or a cotton-wool blend). Wear special shoes if your health care provider recommends them. Wear shoes/boots that will protect your feet from various weather conditions (cold, moisture, etc.). Make sure your shoes fit properly. If you have neuropathy (nerve damage), you may not notice that your shoes are too tight. Perform the footwear test described below. Footwear Test Use this simple test to see if your shoes fit correctly: Stand on a piece of paper. (Make sure you are standing and not sitting, because your foot changes shape when you stand.) Trace the outline of your foot. Trace the outline of your shoe. Compare the tracings: Is the shoe too narrow? Is your foot crammed into the shoe? The shoe should be at least 1/2 inch longer than your longest toe and as wide as your foot. Proper Shoe Choices The following types of shoes are best for people with diabetes Closed toes and heels Leather uppers without a seam inside At least 1/2 inch extra space at the end of your longest toe Inside of shoe should be soft with no rough areas Outer sole should be made of stiff material Shoes should be at least as wide as your feet Tips for Foot Care in Diabetes Don't wait to treat a minor foot problem if you have diabetes. Follow your health care provider's guidelines and first aid guidelines. Report foot injuries and infections to your health care provider immediately. Check water temperature with your elbow, not your foot. Do not use a heating pad on your feet. Do not cross your legs. Do not self-treat your corns, calluses, or other foot problems. Go to your health care provider or detail assembler to treat these conditions. documented in [facility] encounterThe [facility] History of Present illness Narrative* Kristi Garza RT(R) - 12/05/2023 10:50 AM EDT Radiology Service Progress Note PATIENT NAME: Cirilo Ceballos DATE OF SERVICE: December 05, 2023 TIME: 10:39 AM PATIENT IDENTITY VERIFICATION COMPLETED USING TWO (2) IDENTIFIERS: Name and Date of confirmedby patient verbally. FALL SCREENING: Has the patient had 2 falls in the last year or 1 fall with injury or currently using an Ambulatory Assistive Device (Walker, Cane, Wheelchair, Crutches, etc.)? No PATIENT GENDER DATA: Female. status: : No status: NO. PATIENT RELEVANT IMPLANT DATA REVIEWED: Yes PATIENT PRESENTS WITH AN IMPLANTABLE OR ATTACHED VENETIAN BLIND MACHINE OPERATOR: No RADIOLOGY DEPARTMENT: General X-ray: Exam(s) Completed: Lower Extremity X- Ray(s): Foot, Right PERIPHERAL IV DATA: Not applicable SIGNED BY: Kristi Garza, RT(R) December 05, 2023 10:39 AM [facility]* Diagnosis Onset Date Resolution Status Diabetes mellitus chronic HTN (hypertension) chronic Hypothyroidism (acquired) ch ronic Mixed hyperlipidemia chronic [facility] Work Phone: evaluation note* Diagnosis Onset Date Resolution Status Diabetes mellitus chronic HTN (hypertension) chronic Hypothyroidism (acquired) ch ronic Mixed hyperlipidemia chronic Colon cancer screening acute History of colon polyps acut e [facility] Work Phone: Evaluation note* Diagnosis Onset Date Resolution Status Diabetes mellitus type 1 acu te HTN (hypertension) chronic Hypothyroidism (acquired) ch ronic Mixed hyperlipidemia chronic Overweight (BMI 25.0-29.9) c hronic [facility] Work Phone: Evaluation note* Diagnosis Onset Date Resolution Status Diabetes mellitus type 1 chr onic Hypothyroidism (acquired) ch ronic Mixed hyperlipidemia chronic Overweight (BMI 25.0-29.9) c hronic Presence of insulin pump [facility] Work Phone: Evaluation note* Diagnosis Repetitive stress injury- Primary Unspecified site of sprain and strain [facility]* Diagnosis Pain in right foot Pain in limb documented [facility] encounter [facility] noteNo assessment information availableChonc [facility] Work Phone: Instructions* Name Dates Details How to access health informa tion online Indication:Non-smoker Start:22-Nov-2019 Instruction Type:Patient Education How to access health informa tion online - Detail Indication:Non-smoker Start:22-Nov-2019 Instruction Type:Patient Education Patient Instructions Indication:Non-smoker Start:22-Nov-2019 Instruction Type:Provider Instructions for Treatment How to access health informa tion online Indication:Non-smoker Start:21-Nov-2019 Instruction Type:Patient Education How to access health informa tion online - Detail Indication:Non-smoker Start:21-Nov-2019 Instruction Type:Patient Education Patient Instructions Indication:Non-smoker Start:21-Nov-2019 Instruction Type:Provider Instructions for Treatment How to access health informa tion online Indication:Non-smoker Start:18-Feb-2019 Instruction Type:Patient Education How to access health informa tion online - Detail Indication:Non-smoker Start:18-Feb-2019 Instruction Type:Patient Education Patient Instructions Indication:Non-smoker Start:18-Feb-2019 Instruction Type:Provider Instructions for Treatment Patient Instructions Indication:Anemia Start:01-Apr-2015 Instruction Type:Provider Instructions for Treatment DISCONTINUED - CBC WITH MANU AL DIFF ([id number]) Indication:Benign essential HTN Start:02-Apr-2013 Instruction Type:Patient Education Patient Instructions 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 Start:02-Apr-2013 Instruction Type:Provider Instructions for Treatment [facility] Work Phone: Instructions* Name Dates Details How to access health informa tion online Indication:Non-smoker Start:22-Nov-2019 Instruction Type:Patient Education How to access health informa tion online - Detail Indication:Non-smoker Start:22-Nov-2019 Instruction Type:Patient Education Patient Instructions Indication:Non-smoker Start:22-Nov-2019 Instruction Type:Provider Instructions for Treatment How to access health informa tion online Indication:Non-smoker Start:21-Nov-2019 Instruction Type:Patient Education How to access health informa tion online - Detail Indication:Non-smoker Start:21-Nov-2019 Instruction Type:Patient Education Patient Instructions Indication:Non-smoker Start:21-Nov-2019 Instruction Type:Provider Instructions for Treatment How to access health informa tion online Indication:Non-smoker Start:18-Feb-2019 Instruction Type:Patient Education How to access health informa tion online - Detail Indication:Non-smoker Start:18-Feb-2019 Instruction Type:Patient Education Patient Instructions Indication:Non-smoker Start:18-Feb-2019 Instruction Type:Provider Instructions for Treatment Patient Instructions Indication:Anemia Start:01-Apr-2015 Instruction Type:Provider Instructions for Treatment DISCONTINUED - CBC WITH MANU AL DIFF ([id number]) Indication:Benign essential HTN Start:02-Apr-2013 Instruction Type:Patient Education Patient Instructions 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 Start:02-Apr-2013 Instruction Type:Provider Instructions for Treatment [facility] Work Phone: Instructions* Name Dates Details How to access health informa tion online Indication:Non-smoker Start:22-Nov-2019 Instruction Type:Patient Education How to access health informa tion online - Detail Indication:Non-smoker Start:22-Nov-2019 Instruction Type:Patient Education Patient Instructions Indication:Non-smoker Start:22-Nov-2019 Instruction Type:Provider Instructions for Treatment How to access health informa tion online Indication:Non-smoker Start:21-Nov-2019 Instruction Type:Patient Education How to access health informa tion online - Detail Indication:Non-smoker Start:21-Nov-2019 Instruction Type:Patient Education Patient Instructions Indication:Non-smoker Start:21-Nov-2019 Instruction Type:Provider Instructions for Treatment How to access health informa tion online Indication:Non-smoker Start:18-Feb-2019 Instruction Type:Patient Education How to access health informa tion online - Detail Indication:Non-smoker Start:18-Feb-2019 Instruction Type:Patient Education Patient Instructions Indication:Non-smoker Start:18-Feb-2019 Instruction Type:Provider Instructions for Treatment Patient Instructions Indication:Anemia Start:01-Apr-2015 Instruction Type:Provider Instructions for Treatment DISCONTINUED - CBC WITH MANU AL DIFF ([id number]) Indication:Benign essential HTN Start:02-Apr-2013 Instruction Type:Patient Education Patient Instructions 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 Start:02-Apr-2013 Instruction Type:Provider Instructions for Treatment [facility] Work Phone: reason for referral (narrative)* Diagnostic Procedure Only (Routine) - Pending Review Specialty Diagnoses / Procedures Referred By Contac t Referred To Contact XR IMAGING Diagnoses Repetitive stress injury Procedures XR FOOT GENERAL 3V AP/LAT/OBL RIGHT RADEX FOOT COMPLETE MINIMUM 3 VIEWS Amy Noble [address] [place] [address] [place] [id number] Referral ID Status Reason Start Date Expiration Date Visits Requested Visits Authorized [id number] Pending Review Auto-Generat ed Referral 12/05/2023 01/03/2025 1 1 [facility] (narrative)No reason for referral information availableWahkiacus Agile Sciences Services Work Phone: Reason for visit Narrative* Diagnostic Procedure Only (Routine) - Closed Specialty Diagnoses / Procedures Referred By Contac t Referred To Contact XR IMAGING Diagnoses Pain in right foot Procedures XR FOOT GENERAL 3V AP/LAT/OBL RIGHT RADEX FOOT COMPLETE MINIMUM 3 VIEWS Amy Noble [address] [place] [address] [place] [address] Referral ID Status Reason Start Date Expiration Date V isits Requested Visits Authorized [id number] Closed Auto-Generate d Referral 12/04/2023 01/02/2025 1 1 [facility] Family History No Family History Records FoundUnknown Family Member Name Dates Details Alcohol Abuse Comments:Father. Status:Active Diabetes Mellitus Comments:Mother. Maternal Gr andmother. Brother. Status:Active Heart Disease Comments:Mother. Status:Active Hypercholesterolemia Comments:Mother. Status:Active Hypertension Comments:Mother. Status:Active Unknown Family Member Name Dates Details Alcohol Abuse Comments:Father. Status:Active Diabetes Mellitus Comments:Mother. Maternal Gr andmother. Brother. Status:Active Heart Disease Comments:Mother. Status:Active Hypercholesterolemia Comments:Mother. Status:Active Hypertension Comments:Mother. Status:Active Unknown Family Member Name Dates Details Alcohol Abuse Comments:Father. Status:Active Diabetes Mellitus Comments:Mother. Maternal Gr andmother. Brother. Status:Active Heart Disease Comments:Mother. Status:Active Hypercholesterolemia Comments:Mother. Status:Active Hypertension Comments:Mother. Status:Active Unknown Family Member Name Dates Details Alcohol Abuse Comments:Father. Status:Active Diabetes Mellitus Comments:Mother. Maternal Gr andmother. Brother. Status:Active Heart Disease Comments:Mother. Status:Active Hypercholesterolemia Comments:Mother. Status:Active Hypertension Comments:Mother. Status:Active Unknown Family Member Name Dates Details Alcohol Abuse Comments:Father. Status:Active Diabetes Mellitus Comments:Mother. Maternal Gr andmother. Brother. Status:Active Heart Disease Comments:Mother. Status:Active Hypercholesterolemia Comments:Mother. Status:Active Hypertension Comments:Mother. Status:Active Unknown Family Member Name Dates Details Alcohol Abuse Comments:Father. Status:Active Diabetes Mellitus Comments:Mother. Maternal Gr andmother. Brother. Status:Active Heart Disease Comments:Mother. Status:Active Hypercholesterolemia Comments:Mother. Status:Active Hypertension Comments:Mother. Status:Active Unknown Family Member Name Dates Details Alcohol Abuse Comments:Father. Status:Active Diabetes Mellitus Comments:Mother. Maternal Gr andmother. Brother. Status:Active Heart Disease Comments:Mother. Status:Active Hypercholesterolemia Comments:Mother. Status:Active Hypertension Comments:Mother. Status:Active Unknown Family Member Name Dates Details Alcohol Abuse Comments:Father. Status:Active Diabetes Mellitus Comments:Mother. Maternal Gr andmother. Brother. Status:Active Heart Disease Comments:Mother. Status:Active Hypercholesterolemia Comments:Mother. Status:Active Hypertension Comments:Mother. Status:Active Unknown Family Member Name Dates Details Alcohol Abuse Comments:Father. Status:Active Diabetes Mellitus Comments:Mother. Maternal Gr andmother. Brother. Status:Active Heart Disease Comments:Mother. Status:Active Hypercholesterolemia Comments:Mother. Status:Active Hypertension Comments:Mother. Status:Active Unknown Family Member Name Dates Details Alcohol Abuse Comments:Father. Status:Active Diabetes Mellitus Comments:Mother. Maternal Gr andmother. Brother. Status:Active Heart Disease Comments:Mother. Status:Active Hypercholesterolemia Comments:Mother. Status:Active Hypertension Comments:Mother. Status:Active Relationship Condition Age at Onset Recorded Date/T jw mother Diabetes mellitus Unknown Hemorrhagic disorder Unknown High blood cholesterol Unknown Malignant neoplasm Unknown Cardiac disease Unknown Hypertension Unknown Malignant melanoma Unknown father Alcoholism Unknown sister Malignant neoplasm of colon Unknown Diabetes mellitus Unknown brother Diabetes mellitus Unknown Unknown Family Member Name Dates Details Alcohol Abuse Comments:Father. Status:Active Diabetes Mellitus Comments:Mother. Maternal Gr andmother. Brother. Status:Active Heart Disease Comments:Mother. Status:Active Hypercholesterolemia Comments:Mother. Status:Active Hypertension Comments:Mother. Status:Active Unknown Family Member Name Dates Details Alcohol Abuse Comments:Father. Status:Active Diabetes Mellitus Comments:Mother. Maternal Gr andmother. Brother. Status:Active Heart Disease Comments:Mother. Status:Active Hypercholesterolemia Comments:Mother. Status:Active Hypertension Comments:Mother. 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 Start:02-Apr-2013 Instruction Type:Provider Instructions for Treatment Name Dates Details How to access health informa tion online Indication:Non-smoker Start:18-Feb-2019 Instruction Type:Patient Education How to access health informa tion online - Detail Indication:Non-smoker Start:18-Feb-2019 Instruction Type:Patient Education Patient Instructions Indication:Non-smoker Start:18-Feb-2019 Instruction Type:Provider Instructions for Treatment Patient Instructions Indication:Anemia Start:01-Apr-2015 Instruction Type:Provider Instructions for Treatment DISCONTINUED - CBC WITH MANU AL DIFF ([id number]) Indication:Benign essential HTN Start:02-Apr-2013 Instruction Type:Patient Education Patient Instructions 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 Start:02-Apr-2013 Instruction Type:Provider Instructions for Treatment Name Dates Details How to access health informa tion online Indication:Non-smoker Start:18-Feb-2019 Instruction Type:Patient Education How to access health informa tion online - Detail Indication:Non-smoker Start:18-Feb-2019 Instruction Type:Patient Education Patient Instructions Indication:Non-smoker Start:18-Feb-2019 Instruction Type:Provider Instructions for Treatment Patient Instructions Indication:Anemia Start:01-Apr-2015 Instruction Type:Provider Instructions for Treatment DISCONTINUED - CBC WITH MANU AL DIFF ([id number]) Indication:Benign essential HTN Start:02-Apr-2013 Instruction Type:Patient Education Patient Instructions 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 Start:02-Apr-2013 Instruction Type:Provider Instructions for Treatment Name Dates Details How to access health informa tion online Indication:Non-smoker Start:18-Feb-2019 Instruction Type:Patient Education How to access health informa tion online - Detail Indication:Non-smoker Start:18-Feb-2019 Instruction Type:Patient Education Patient Instructions Indication:Non-smoker Start:18-Feb-2019 Instruction Type:Provider Instructions for Treatment Patient Instructions Indication:Anemia Start:01-Apr-2015 Instruction Type:Provider Instructions for Treatment DISCONTINUED - CBC WITH MANU AL DIFF ([id number]) Indication:Benign essential HTN Start:02-Apr-2013 Instruction Type:Patient Education Patient Instructions 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 Start:02-Apr-2013 Instruction Type:Provider Instructions for Treatment Name Dates Details How to access health informa tion online Indication:Non-smoker Start:18-Feb-2019 Instruction Type:Patient Education How to access health informa tion online - Detail Indication:Non-smoker Start:18-Feb-2019 Instruction Type:Patient Education Patient Instructions Indication:Non-smoker Start:18-Feb-2019 Instruction Type:Provider Instructions for Treatment Patient Instructions Indication:Anemia Start:01-Apr-2015 Instruction Type:Provider Instructions for Treatment DISCONTINUED - CBC WITH MANU AL DIFF ([id number]) Indication:Benign essential HTN Start:02-Apr-2013 Instruction Type:Patient Education Patient Instructions 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 Start:02-Apr-2013 Instruction Type:Provider Instructions for Treatment Name Dates Details How to access health informa tion online Indication:Non-smoker Start:18-Feb-2019 Instruction Type:Patient Education How to access health informa tion online - Detail Indication:Non-smoker Start:18-Feb-2019 Instruction Type:Patient Education Patient Instructions Indication:Non-smoker Start:18-Feb-2019 Instruction Type:Provider Instructions for Treatment Patient Instructions Indication:Anemia Start:01-Apr-2015 Instruction Type:Provider Instructions for Treatment DISCONTINUED - CBC WITH MANU AL DIFF ([id number]) Indication:Benign essential HTN Start:02-Apr-2013 Instruction Type:Patient Education Patient Instructions 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 Start:02-Apr-2013 Instruction Type:Provider Instructions for Treatment Name Dates Details How to access health informa tion online Indication:Non-smoker Start:18-Feb-2019 Instruction Type:Patient Education How to access health informa tion online - Detail Indication:Non-smoker Start:18-Feb-2019 Instruction Type:Patient Education Patient Instructions Indication:Non-smoker Start:18-Feb-2019 Instruction Type:Provider Instructions for Treatment Patient Instructions Indication:Anemia Start:01-Apr-2015 Instruction Type:Provider Instructions for Treatment DISCONTINUED - CBC WITH MANU AL DIFF ([id number]) Indication:Benign essential HTN Start:02-Apr-2013 Instruction Type:Patient Education Patient Instructions 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 Start:02-Apr-2013 Instruction Type:Provider Instructions for Treatment Name Dates Details How to access health informa tion online Indication:Non-smoker Start:22-Nov-2019 Instruction Type:Patient Education How to access health informa tion online - Detail Indication:Non-smoker Start:22-Nov-2019 Instruction Type:Patient Education Patient Instructions Indication:Non-smoker Start:22-Nov-2019 Instruction Type:Provider Instructions for Treatment How to access health informa tion online Indication:Non-smoker Start:21-Nov-2019 Instruction Type:Patient Education How to access health informa tion online - Detail Indication:Non-smoker Start:21-Nov-2019 Instruction Type:Patient Education Patient Instructions Indication:Non-smoker Start:21-Nov-2019 Instruction Type:Provider Instructions for Treatment How to access health informa tion online Indication:Non-smoker Start:18-Feb-2019 Instruction Type:Patient Education How to access health informa tion online - Detail Indication:Non-smoker Start:18-Feb-2019 Instruction Type:Patient Education Patient Instructions Indication:Non-smoker Start:18-Feb-2019 Instruction Type:Provider Instructions for Treatment Patient Instructions Indication:Anemia Start:01-Apr-2015 Instruction Type:Provider Instructions for Treatment DISCONTINUED - CBC WITH MANU AL DIFF ([id number]) Indication:Benign essential HTN Start:02-Apr-2013 Instruction Type:Patient Education Patient Instructions 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 Start:02-Apr-2013 Instruction Type:Provider Instructions for Treatment Name Dates Details How to access health informa tion online Indication:Non-smoker Start:22-Nov-2019 Instruction Type:Patient Education How to access health informa tion online - Detail Indication:Non-smoker Start:22-Nov-2019 Instruction Type:Patient Education Patient Instructions Indication:Non-smoker Start:22-Nov-2019 Instruction Type:Provider Instructions for Treatment How to access health informa tion online Indication:Non-smoker Start:21-Nov-2019 Instruction Type:Patient Education How to access health informa tion online - Detail Indication:Non-smoker Start:21-Nov-2019 Instruction Type:Patient Education Patient Instructions Indication:Non-smoker Start:21-Nov-2019 Instruction Type:Provider Instructions for Treatment How to access health informa tion online Indication:Non-smoker Start:18-Feb-2019 Instruction Type:Patient Education How to access health informa tion online - Detail Indication:Non-smoker Start:18-Feb-2019 Instruction Type:Patient Education Patient Instructions Indication:Non-smoker Start:18-Feb-2019 Instruction Type:Provider Instructions for Treatment Patient Instructions Indication:Anemia Start:01-Apr-2015 Instruction Type:Provider Instructions for Treatment DISCONTINUED - CBC WITH MANU AL DIFF ([id number]) Indication:Benign essential HTN Start:02-Apr-2013 Instruction Type:Patient Education Patient Instructions 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 Expiration date unspecified Effective:14-Feb-2019 Name Dates Details Immunization Registry [place] - Effective on 02/14/2019. Expiration date unspecified Effective:14-Feb-2019 Name Dates Details Immunization Registry [place] - Effective on 02/14/2019. Expiration date unspecified Effective:14-Feb-2019 Name Dates Details Immunization Registry [place] - Effective on 02/14/2019. Expiration date unspecified Effective:14-Feb-2019 Name Dates Details Immunization Registry [place] - Effective on 02/14/2019. Expiration date unspecified Effective:14-Feb-2019 Name Dates Details Immunization Registry [place] - Effective on 02/14/2019. Expiration date unspecified Effective:14-Feb-2019 Name Dates Details Immunization Registry [place] - Effective on 02/14/2019. Expiration date unspecified Effective:14-Feb-2019 Advance Directive Response Recorded Date/ Time Advance Directives No April 23, 2020 8:29am Living Will No February 18, 2021 3:58pm Power of Sexual Assault Social Worker No February 18 3:58pm Advance Directive Response Recorded Date/ Time Advance Directives No April 23, 2020 8:29am Living Will No December 16, 2021 1 1:10am Power of Sexual Assault Social Worker No December 16, 2021 11:10am Name Dates Details Immunization Registry [place] - Effective on 02/14/2019. Expiration date unspecified Effective:14-Feb-2019 Name Dates Details Immunization Registry [place] - Effective on 02/14/2019. Expiration date unspecified Effective:14-Feb-2019 Advance Directive Response Recorded Date/ Time Advance Directives No April 23, 2020 8:29am Chief Complaint and Reason for Visit Chief Complaint Amb Documentation 4 M FU Reason for Visit Diabetes mellitus HTN (hypertension) Hypothyroidism (acquired) Mixed hyperlipidemia Chief Complaint Amb Documentation 4 M FU Reason for Visit Diabetes mellitus HTN (hypertension) Hypothyroidism (acquired) Mixed hyperlipidemia Colon cancer screening History of colon polyps Chief Complaint 4 M FU Reason for Visit Diabetes mellitus ty pe 1 HTN (hypertension) Hypothyroidism (acquired) Mixed hyperlipidemia Overweight (BMI 25.0-29.9) Chief Complaint 6 M FU Plantar fascial fibromatosis Reason for Visit Diabetes mellitus ty pe 1 Hypothyroidism (acquired) Mixed hyperlipidemia Overweight (BMI 25.0-29.9) Presence of insulin pump Chief Complaint Admit Date 4 M FU December 10, 2024 12:57 pm Chief Complaint Admit Date 4 M FU December 10, 2024 12:57 pm LEFT HAND January 15, 2025 2:54p m Reason for Visit Admit Date Diabetes mellitus type 1 December 10, 2024 12:57pm HTN (hypertension) December 10, 2024 12:57 pm Hypothyroidism (acquired) December 10, 2024 12:57pm Mixed hyperlipidemia December 10, 2024 12:5 7pm Overweight (BMI 25.0-29.9) December 10 12:57pm Presence of insulin pump December 10, 2024 12:57pm Carpal tunnel syndrome on left January 15, 2025 2:54pm Chief Complaint Admit Date 4 M FU December 10, 2024 12:57 pm LEFT HAND January 15, 2025 2:54p m LUE; Carpal tunnel syndrome February 04 025 8:37am LUE; Carpal tunnel syndrome February 04 025 9:50am Chief Complaint Admit Date 4 M FU December 10, 2024 12:57 pm LEFT HAND January 15, 2025 2:54p m LUE; Carpal tunnel syndrome February 04 025 8:37am LUE; Carpal tunnel syndrome February 04 025 9:50am LEFT HAND February 12, 2025 1:47 pm Summary Purpose Additional Source Comments Goals (unrecognized section and content) Goals may be documented in a n alternate sectionGoals may be documented in an alternate sectionGoals may be documented in an alternate sectionGoals may be documented in an alternate sectionGoals may be documented in an alternate sectionGoals may be documented in an alternate sectionGoals may be documented in an alternate sectionGoals may be documented in an alternate section Care Teams (unrecognized sec tion and content) Team Status: Active Member Role Status Dates Melyssa Dowd STROKE COORDINATOR, STROKE COORDINATOR-C Family Provider Active Dr. Cecy Alarcon , DO Primary Care Provider Active Team Status: Inactive Member Role Status Dates Dr. Cecy Alarcon , DO Primary Care Provider, Referr ing Provider Active Dr. Remberto Lubin MD Attending Provider Active Team Status: Inactive Member Role Status Dates Dr. Cecy Alarcon DO Primary Care Provider Active Dr[facility] Remberto Lubin MD Attending Provider, [facility] Team Status: Active Member Role Status Dates Melyssa Dowd STROKE COORDINATOR, STROKE COORDINATOR-C Family Provider Active Anila LICONA, STROKE COORDINATOR-C Primary Care Provider Activ e Team Status: Inactive Member Role Status Dates Anila LICONA, STROKE COORDINATOR-C Primary Care Provider, Attending Provider, Referring Provider Active Body Presser Relationship Specialty Start Date End Date Cecy Alarcon DO PCP - General Internal Medicine 08/06/14 Anila Mas NP [address] [place] [id number] Referring Family Medicine 11/14/23 Body Presser Relationship Specialty Start Date End Date Cecy Alarcon DO PCP - General Internal Medicine 08/06/14 Anila Mas NP [address] [place] [phone] Referring Family Medicine 11/14/23 Team Status: Inactive Member Role Status Dates Anila LICONA, STROKE COORDINATOR-C Primary Care Provider Activ e Start: October 16, 2024 End: October 16, 2024 Anila LICONA, STROKE COORDINATOR-C Attending Provider Active Start: October 16, 2024 End: October 16, 2024 Team Status: Inactive Member Role Status Dates Anila LICONA, STROKE COORDINATOR-C Primary Care Provider Activ e Start: December 10, 2024 End: December 10, 2024 Anila LICONA, STROKE COORDINATOR-C Referring Provider Active Start: December 10, 2024 End: December 10, 2024 Dr. Remberto Lubin MD Attending Provider Active Sta rt: December 10, 2024 End: December 10, 2024 Team Status: Active Member Role/Relationship Status Dates Melyssa Dowd STROKE COORDINATOR, STROKE COORDINATOR-C Family Provider Active Anila Mas VSC, STROKE COORDINATOR-C Primary Care Provider Activ e Team Status: Inactive Member Role/Relationship Status Dates Anila Mas VSC, STROKE COORDINATOR-C Primary Care Provider Activ e Start: October 16, 2024 End: October 16, 2024 Anila Mas VSC, STROKE COORDINATOR-C Attending Provider Active Start: October 16, 2024 End: October 16, 2024 Team Status: Inactive Member Role/Relationship Status Dates Anila Mas VSC, STROKE COORDINATOR-C Primary Care Provider Activ e Start: December 10, 2024 End: December 10, 2024 Anila Mas VSC, STROKE COORDINATOR-C Referring Provider Active Start: December 10, 2024 End: December 10, 2024 Dr. Remberto Lubin MD Attending Provider Active Sta rt: December 10, 2024 End: December 10, 2024 Team Status: Inactive Member Role/Relationship Status Dates Anila DAILEYC, STROKE COORDINATOR-C Primary Care Provider Activ e Start: January 15, 2025 End: January 15, 2025 Anila Mas VSC, STROKE COORDINATOR-C Referring Provider Active Start: January 15, 2025 End: January 15, 2025 Dr. Savage Sanchez DO Attending Provider Active Start: January 15, 2025 End: January 15, 2025 Team Status: Active Member Role/Relationship Status Dates Anila DAILEYC, STROKE COORDINATOR-C Primary Care Provider Activ e Team Status: Inactive Member Role/Relationship Status Dates Anila DAILEYC, STROKE COORDINATOR-C Primary Care Provider Activ e Start: February 04, 2025 End: February 04, 2025 Dr. Savage Sanchez DO Attending Provider Active Start: February 04, 2025 End: February 04, 2025 Dr. Savage Sanchez DO Referring Provider Active Start: February 04, 2025 End: February 04, 2025 Team Status: Active Member Role/Relationship Status Dates Anila DAILEYC, STROKE COORDINATOR-C Primary Care Provider Activ e Start: February 04, 2025 Dr. Savage Sanchez DO Referring Provider Active Start: February 04, 2025 Dr. Savage Sanchez DO Other Provider Active St art: February 04, 2025 Dr. Quang Martines MD Attending Provider Active Start: February 04, 2025 Team Status: Inactive Member Role/Relationship Status Dates Anila Chace VSC, STROKE COORDINATOR-C Primary Care Provider Activ e Start: February 12, 2025 End: February 12, 2025 Anilajonny LICONA, STROKE COORDINATOR-C Referring Provider Active Start: February 12, 2025 End: February 12, 2025 Dr. Savage Sanchez , DO Attending Provider Active Start: February 12, 2025 End: February 12, 2025 Source Comments (unrecognize d section and content) In the event this informatio n is protected by the Federal Confidentiality of Alcohol and Drug Abuse Patient Records regulations: The Federal rules restrict any use of the information to criminally investigate or prosecute any alcohol or drug abuse patient.[facility]In the event this information is protected by the Federal Confidentiality of Alcohol and Drug Abuse Patient Records regulations: The Federal rules restrict any use of the information to criminally investigate or prosecute any alcohol or drug abuse patient.[facility] INFORMATION SOURCE (unrecogn ized section and content) DATE CREATED AUTHOR 12/10/2023 [facility] DATE CREATED AUTHOR AUTHOR'S ALTA WARNER 02/24/2025 [facility] FOR RECORDS PERTAINING TO PATIENTS WHO ARE OR HAVE BEEN ENROLLED IN A CHEMICAL DEPENDENCY/SUBSTANCEABUSE PROGRAM, SOME INFORMATION MAY BE OMITTED. This clinical summary was aggregated from multiple sources. Caution should be exercised in using it in the provision of clinical care. This summary normalizes information from multiple sources, and as a consequence, information in this document may materially change the coding, format and clinical context of patient data. In addition, data may be omitted in some cases. CLINICAL DECISIONS SHOULD BE BASED ON THE PRIMARY CLINICAL RECORDS. [facility]. provides no warranty or guarantee of the accuracy or completeness of information in this document.
[2025-02-25] MEDS: Lactated Ringers 1,000 ML 15 ML IV (06:23)
--- NOTE | 2025-02-25 06:38 | PCM.PRE.AN2 ---
ASA Classification* ASA Classification ASA Classification: 2 Assessment & Plan Anesthesia* Anesthesia Assessment Anesthesia Assessment: Discussed sedation and/or anesthesia options, risks, benefits, and alternatives with patient/parents/legal guardian/POA. Questions invited. The patient/parents/legal guardian/POA seems to understand and agrees to proceed with anesthesia plan. Reviewed the physical assessment, medical history, allergy history and patient home medications list prior to surgery/procedure/anesthetic and documented any changes. Performed airway and anesthesia risk assessments. Anesthesia Type Anesthesia Type: MAC History Source History Obtained from:: Patient and Chart Anesthesia Focused Assessment* Temperature: 97.3 F Pulse Rate: 61 Blood Pressure: 112/67 Respiratory Rate: 16 Pulse Ox: 96 Airway Assessment Mouth opens: >3 cm Mallampati Score: II Teeth Condition: Intact Neck Range of motion (ROM): Full ROM Labs Anesthesia Preop lab: CBC WBC 9.3 K/mm3 (4.4-11.0) 10/16/24 16:10/16/24 RBC 4.69 M/mm3 (4.2-5.4) 10/16/24 16:10/16/24 Hgb 13.8 g/dL (12.0-15.0) 10/16/24 16:10/16/24 Hct 42.2 % (37-47) 10/16/24 16:10/16/24 Plt Count 330 K/mm3 (150-450) 10/16/24 16:25 10/16/24 CHEMISTRY Potassium 4.1 mmol/L (3.3-5.1) 10/16/24 16:25 10/16/24 Sodium 138 mmol/L (133-145) 10/16/24 16:25 10/16/24 BUN 15 mg/dL (4-19) 10/16/24 16:25 10/16/24 Creatinine 0.83 mg/dL (0.70-1.20) 10/16/24 16:10/16/24 Glucose 197 mg/dL (70-99) H 10/16/24 16:25 10/16/24 POC Glucose 213 mg/dL (70-110) H 11/04/20 06:33 11/04/20 TSH 6.380 uIU/mL (0.300-4.200) H 10/16/24: 10/16/24 COAG PT 13.1 SECONDS (11.7-14.9) 05/14/15 11:24 05/14/15 HCG, Quant < 1 mIU/mL (<9 non-preg) 03/27/15 12:16 03/27/15 Urine Test Negative Negative 05/14/15 11:00 05/14/15 Pre-Assessment Diagnosis/Proposed Procedure Planned Operative Procedure(s): LEFT OPEN CARPAL TUNNEL RELEASE Anesthesia History 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 When Was Last Pacemaker Check QUESTION #4 FULL TEXT: You/Your Family Experience fever (hyperthermia) with Anesthesia Last Oral Intake Last Oral intake: Last Oral Intake NPO since 00:00 02/25/25 06:20 Meds taken in AM with sips of Yes 02/25/25 06:20 water? 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 Female Yes 02/14/25 14:22 HX of Motion Sickness No 02/14/25 14:22 HX of N/V After Surgery Yes 02/14/25 14:22 Non-Smoker Yes 02/14/25 14:22 Duration of Surgery greater No 02/14/25 14:22 than 60 minutes Number of Risk Factors 3 02/14/25 14:22 PONV Score Moderate Risk 02/14/25 14:22 Height & Weight Height & Weight: Anesthesia: Height & Weight Height 5 ft 2 in 02/25/25 06:20 Weight: 72 kg 02/25/25 06:20 Body Mass Index (BMI) 29.0 02/25/25 06:20 Respiratory Assessment Respiratory Assessment - 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 Has anyone observed you stop No 02/14/25 14:22 breathing during sleep? STOP Results Negative 02/14/25 14:22 QUESTION #5 FULL TEXT : Do you snore loudly (louder than talking or can be heard through closed doors)? 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 Specify any problems Hx of Preganancy in last 3 No 02/14/25 14:22 Months Nurse Filling Out Transfusion VLEHMAMMOTH 02/14/25 14:22 & Questions: Date: 02/14/25 02/14/25 14:22 Time: 14:29 02/14/25 14:22 Patient unable to answer at this time (ie. 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: /Reproductive Hx- slag production worker Hx Now No 02/14/25 14:22 Gestational Age (in weeks): EDC: Hx Hx Para Hx Section SAB No 02/14/25 14:22 Active Medications Active Medications: Current Medications Generic Name Dose Route Start Last Admin Trade Name Freq PRN Reason Stop Dose Admin Cefazolin Sodium 2 gm/ Sodium 110 mls @ 200 mls/hr 02/25/25 07:30 Chloride IV 02/25/25 08:02 INTRAOP ONE Lactated Ringer's 1,000 mls @ 15 mls/hr 02/25/25 06:15 02/25/25 06:23 IV 15 mls/hr .Q48H JARRETT Administration PFSH Medical History (Updated 02/14/25 @ 14:28 by Kimberly Rubio) Depression Thyroid disease Insulin dependent diabetes mellitus Diabetes High cholesterol History of cataract Insulin pump titration Presence of insulin pump Hypercalcemia Diabetes mellitus type 1 PONV (postoperative nausea and vomiting) Postmenopausal Wears glasses Arthritis Easy bruising Dietary restriction Non-smoker Paresthesia Knee pain HTN (hypertension) Thyroid nodule Hyperlipidemia Hypothyroidism Diabetes type 1, controlled Home Medications ?Medication ?Instructions ?Recorded ?Last Taken ?Type flash glucose sensor #1 ea 02/08/21 Unknown History cholecalciferol (vitamin D3) 125 1,000 unit PO DAILY 02/20/24 02/24/25 History mcg (5,000 unit) capsule propranolol 20 mg tablet 20 mg PO BID PRN anxiety 02/20/24 02/24/25 History sertraline 50 mg tablet 100 mg PO QDAY 02/20/24 02/24/25 History amlodipine 5 mg tablet 5 mg PO QDAY 04/15/24 02/25/25 History atorvastatin 20 mg tablet 20 mg PO QDAY #90 tabs 06/17/24 02/24/25 Rx blood-glucose sensor (Dexcom G7 #3 ea 08/27/24 Unknown Rx Sensor device) insulin aspart U-100 100 unit/mL 100 unit subcut DAILY #30 mL 12/10/24 Unknown Rx subcutaneous solution (Novolog U-100 Insulin aspart) insulin pump cart,auto,BT,G6/7 #12 ea 12/10/24 Unknown Rx (Omnipod 5 G6-G7 Pods (Gen 5) subcutaneous cartridge) levothyroxine 75 mcg tablet 75 mcg PO DAILY thyroid #90 tabs 12/10/24 02/25/25 Rx Allergy/AdvReac Type Severity Reaction Status Date / Time No Known Allergies Allergy Verified 02/12/25 13:52 Family History Mother Diabetes Bleeding disorder High cholesterol Cancer Heart disease Hypertension Melanoma Father Alcoholism Sister Colon cancer Diabetes Brother Diabetes Surgical History (Updated 02/14/25 @ 14:23 by Kimberly Rubio) History of carpal tunnel surgery of right wrist History of arthroscopic knee surgery H/O colonoscopy History of History of lumpectomy of right breast Social History Smoking Status: Never smoker second hand exposure: No alcohol intake: current substance use type: does not use Review of Systems (Anesthesia) ROS Narrative System reviewed and no additional complaints, except as documented.
--- NOTE | 2025-02-25 07:08 | HP.PCM_ITS ---
History and Physical Date of Admission: 02/25/25 [facility] [address] [place] [address] OFFICE VISIT Date of Service: 02/12/25 MR#: [id number] Acct: [id number] Name: CIRILO POZO Rep #: [id number] : 1965 Provider: Dr. Savage Sanchez DO Age/Sex: 60/F Location[place] [facility] [place] Status: Signed Intake Vital Signs 01/15/2515:00 02/12/2513:48 Height 5 ft 2 in 5 ft 2 in Weight: 160 lb 160 lb BMI 29.2 29.2 Intake Visit Reasons: LEFT HAND Chief Complaint: EMG review Accompanied by: Self Is patient in pain?: No Allergies No Known Allergies Allergy (Verified 02/12/25 13:52) Medications ?Medication ?Instructions ?Recorded ?Confirmed ?Type flash glucose sensor #1 ea 02/08/21 02/12/25 History cholecalciferol (vitamin D3) 125 125 mcg PO DAILY 02/20/24 02/12/25 Histo ry mcg (5,000 unit) capsule propranolol 20 mg tablet 20 mg PO BID PRN 02/20/24 02/12/25 Histo ry sertraline 50 mg tablet 50 mg PO QDAY 02/20/24 02/12/25 History amlodipine 5 mg tablet 5 mg PO QDAY 04/15/24 02/12/25 History celecoxib 100 mg capsule (Celebrex) 100 mg PO BID #60 caps 04/15/24 02/12/25 Rx atorvastatin 20 mg tablet 20 mg PO QDAY #90 tabs 06/17/24 02/12/25 Rx blood-glucose sensor (Dexcom G7 #3 ea 08/27/24 02/12/25 Rx Sensor device) insulin aspart U-100 100 unit/mL 100 unit subcut DAILY #30 mL 12/10/24 Rx subcutaneous solution (Novolog U-100 Insulin aspart) insulin pump cart,auto,BT,G6/7 #12 ea 12/10/24 02/12/25 Rx (Omnipod 5 G6-G7 Pods (Gen 5) subcutaneous cartridge) levothyroxine 75 mcg tablet 75 mcg PO DAILY thyroid #90 tabs 5 02/12/25 Rx Have you fallen in the past year?: No PFSH Medical History Insulin pump titration Presence of insulin pump Hypercalcemia Diabetes mellitus type 1 PONV (postoperative nausea and vomiting) Postmenopausal Wears glasses Arthritis Easy bruising Dietary restriction Non-smoker Paresthesia Knee pain HTN (hypertension) Thyroid nodule Hyperlipidemia Hypothyroidism Diabetes type 1, controlled Surgical History History of arthroscopic knee surgery H/O colonoscopy History of History of lumpectomy of right breast History of carpal tunnel release of both wrists Family History Mother Diabetes Bleeding disorder High cholesterol Cancer Heart disease Hypertension MelanomaFather AlcoholismSister Colon cancer DiabetesBrother Diabetes Social History Smoking Status: Never smoker second hand exposure: No alcohol intake: current substance use type: does not use HPI LEFT HAND Details: This documentation accurately reflects the service provided and the decisions made by me, Dr. Savage Sanchez, DO 02/12/25 0924. Part of today?s visit was documented by Tonie Bullard MA, acting as scribe. CIRILO POZO is a 60 year old F here today for left hand EMG review. Patient would like to go over the EMG rescults to discuss what the next step would be. She states that she is not having any pain in her left hand, she is only having numbness. Patient is having numbness in the finger tips only in the left hand. She is able to grab and hold onto things. Patient states sometime at night she will get extreme numbness in the finger tips, and then the finger tips will start to burn. When that burning pain come on at night her pain is about a 10. The extreme numbness and burning in the fingertips does wake her up at night. When she gets up in the morning she will move her fingers around and the burning pain will go away, but the numbness will still be there. Patient tried night bracing for about 6 months with no relief. 01/15/2025 visit: 59 year old F here today for left hand. She is having complaints of numbness tingling and burning in her radial 3 digits. She notes that it wakes her up from night is so painful at times she does not want to move the digits. She has tried wearing a brace for 3 months without any relief. She denies any injections or physical therapy. Patient notes that she is right hand dominant. She denies any cervical spine pain, but on occasion gets a burning pain in her neck not often. She denies dropping items. She does admit to some retrograde symptoms to her elbow but not past this. Patient does have diabetes, but denies any blood thinners. Patient denies any smoking or drug use. Plan:Spoke with the patient about her symptoms likely from carpal tunnel syndrome. Patient should have an EMG/NCS to evaluate for carpal tunnel syndrome. Spoke with her about her options depending on the results of the EMG- continued bracing, take an oral anti-inflammatory, injections, occupational therapy or carpal tunnel release. Follow up after EMG or sooner if pain, swelling, numbness or associated symptoms, or concerns develop. All questions answered. Patient in agreement of plan. Ortho Exam General General: Yes no acute distress Neurologic: Yes alert and Yes oriented x3 Psychologic: Yes reasonable and appropriate Right Wrist/Hand Skin/Wound: No Swelling and No Ecchymosis Left Wrist/Hand Skin/Wound: Yes CDI, No Swelling, No Ecchymosis, Yes nail intact, Yes capillary refill normal and No erythema Left Wrist: Yes ROM-Extension 0-60, Yes ROM-Flexion 0-80, Yes ROM-Pronation 0- 80, Yes ROM-Supination 0-90, Yes Durken's Test and Yes Phalen's WRIST: full flexion, extension, supination and pronation of wrist. good strength of hand and abduction of fingers. cap refill normal She has symptoms at baseline. Mildly decreased cervical extension otherwise full range of motion negative Spurling's Spine Details: good cervical spine ROM. negative spurlings SPINE TESTING CERVICAL THORACIC LUMBAR Musculoskeletal Strength 0=absent - 5=normal Head: Normocephalic Atraumatic Chest: symmetrical rise, non-labored breathing, no audible wheeze Abdomen: no guarding, non-rigid Supplemental Info 02/04/2025 EMG: This is an abnormal study. There is electrodiagnostic evidence of a severe, left median mononeuropathy at the wrist (carpal tunnel syndrome), with secondary sensory and motor fiber axonal loss Coding Level of Care Code Off vis,est,level 4 Diagnoses Carpal tunnel syndrome on left G56.02 Assessment and Plan Assessment and Plan (1) Carpal tunnel syndrome on left: Plan Spoke with the patient about the results of the EMG. Explained she has severe carpal tunnel syndrome and her motor and sensory nerves are affected due to the severity. Recommended surgery due to the severity. Explained there is a risk of no improvement with her sensory and motor nerves but there is a chance she might see improvement after several months. If she does not want to proceed with surgery, she may worsen due to continued compression of the nerve. Patient wished to proceed with left carpal tunnel release. Reviewed the pre- operative plans with the patient. Risks and benefits of the procedure were fully explained, including but not limited to infection, neurovascular injury, continued pain, incisional hypersensitivity, pillar pain stiffness, general risks of anesthesia, . The patient understands all the risks and does wish to proceed with written consent. She will have a lifting restriction for 3 weeks post op. Explained her incision may be sensitive for several months. She may need to do occupational therapy if she experiences any stiffness post op. She will need to hold NSAIDs about 7 days prior to surgery. Follow up for 2 week post op or sooner if pain, swelling, numbness or associated symptoms, or concerns develop. All questions answered. Patient in agreement of plan. I have examined the patient and the H&P has been reviewed. There are no clinical changes since date of exam. Clinical Quality Measures Falls Risk Screening/Assistive Devices Have you fallen in the past year?: No 02/12/25 1505 <Electronically signed by Savage Sanchez DO> Date Savage Sanchez DO
[2025-02-25] MEDS: Cefazolin 1 GM/5 ML Vial 2 GM IV (07:18)
[2025-02-25] MEDS: Midazolam 2 MG/2 ML Syringe IV (07:20)
[2025-02-25] MEDS: Lidocaine 1% (5 ml sdv) 5 ML Vial IV (07:23)
[2025-02-25] MEDS: fentaNYL 100 MCG/2 ML Ampul IV (07:31)
[2025-02-25] MEDS: Bupiv/Epi 0.25% 30 ML Vial (07:39)
--- NOTE | 2025-02-25 07:46 | PCM.OPRPT ---
Operative Report (Standard) Operative Information Date of Procedure: 02/25/25 Pre-Operative Diagnosis: Left carpal tunnel Post-Operative Diagnosis: Same Surgery/Procedure Performed: Left open carpal tunnel release smoke inspector: Yes Wallboard Worker: Reji Alegria Tasks completed by assistant portfolio manager: Opening & closing Type of Anesthesia: Spinal RN Documented Start/Stop Times: Operation Date: 02/25/25 07:30 Case Time Into Pre-Op 02/25/25 06:05 Anesthesia Start 02/25/25 07:19 Into Room 02/25/25 07:19 Out of Pre-Op 02/25/25 07:19 Procedure Start 02/25/25 07:33 Procedure Start Time: 07:33 Procedure Stop Time: 07:45 Select all DRAINS/GRAFTS/IMPLANTS that apply: None Estimated Blood Loss: 0 Specimen collected: No Description of surgery: Preoperative diagnosis; left carpal tunnel syndrome Postoperative diagnosis; same Procedure: Left open carpal tunnel release Anesthesia: Local with MAC Tourniquet time; 8 minutes 250 mm Hg Complications: None Indication for procedure; This is a 60-year-old female with long-standing symptoms consistent with carpal tunnel syndrome the patient did have electrodiagnostic evidence of this and has failed conservative treatment. Risks benefits and alternatives were reviewed including risks of bleeding infection nerve artery tissue damage need for further surgery and continued pain and symptoms, hypersensitivity to scar and Pillar pain. Procedure; The patient was met in the preoperative holding area the operative extremity was identified by both patient and physician and was marked the patient was met by anesthesia and brought back to the operating room and transferred to the operating table in the supine position. Anesthesia was started. A well-padded tourniquet was placed on the operative upper extremity. The patient was prepped and draped in the usual sterile fashion. A timeout was called to ensure the proper patient procedure and extremity were being contemplated. 0.5 percent lidocaine with epinephrine was injected into the incisional area. An Esmarch was used to exsanguinate the extremity. The tourniquet was inflated to 250 mmHg. A midline incision was made with a 15 blade scalpel between the thenar and hypothenar eminence. This was carried down through the skin and subcutaneous tissue. Joi retractors were then used, a deep blade scalpel was used to make a deep incision in the palmar aponeurosis. The joi retractors were then placed deep to this and the transverse carpal ligament was identified a perforation was made with a scalpel and a Littler scissors were used to complete the release of the transverse carpal ligament distally under direct visualization with the tips facing ulnarly until the perivascular fat was reached. Then turning our attention proximally using a tension slide technique the proximal extent of the transverse carpal ligament was released . There was noted to be hypertrophy of the transverse carpal ligament. The wound was thoroughly irrigated and was closed with 4-0 nylon vertical mattress stitches. Dressing was applied in the form of xeroform 4 x 4, web roll and an crista wrap. Tourniquet was let down there is no intraoperative complications patient tolerated the procedure well and was transferred to the PACU. All counts were correct. Surgical Findings: Hypertrophy of the transverse carpal ligament Complications Complications: No
--- NOTE | 2025-02-25 07:48 | EX.PCM.DISCH ---
Discharge Instructions Diet Discharge Diet: No restrictions Dressing / Incision Call your doctor if you observe: Shortness of breath and Chest pain Additional Dressing/Incision Instructions:: Ice and elevate operative extremity next 72 hours. Keep dressing on clean and dry for 48 hours then may remove and allow warm soapy water to rinse over incision but do not submerge until sutures are out. Then apply bandaid over incision and change daily. encourage finger range of motion. Not lift more than 1/2 pound. Minimize narcotic use only as needed and directed, may use OTC NSAID and Tylenol to supplement/substitute for pain control. Follow Up Care Please Follow Up With: Savage Sanchez DO When: 2 weeks Test Results: Test results from this visit will be discussed in further detail at your follow-up appointment, if applicable. Discharge Plan Admission Primary Reason for Your Visit: Left open carpal tunnel release Attending Provider: Savage Sanchez Primary Care Provider: Anila Mas Instructions Print Language: Palestinian Discharge Orders/Prescriptions Prescriptions: New hydrocodone-acetaminophen 5-325 mg tablet 1 tab PO Q4H PRN (Reason: pain) 3 Days Qty: 5 0RF Continued (DME) flash glucose sensor Kit See Rx Instructions .ROUTE .MEDSUPPLY Qty: 1 Patient Comments: USE DIRECTED Rx Instructions: As directed propranolol 20 mg tablet 20 mg PO BID PRN (Reason: anxiety) sertraline 50 mg tablet 100 mg PO QDAY cholecalciferol (vitamin D3) 125 mcg (5,000 unit) capsule 1,000 unit PO DAILY amlodipine 5 mg tablet 5 mg PO QDAY (DME) Omnipod 5 G6-G7 Pods (Gen 5) Cartridge See Rx Instructions .Route Qty: 12 6RF Rx Instructions: change every 60 hours insulin aspart U-100 [Novolog U-100 Insulin aspart] 100 unit/mL solution 100 unit subcut DAILY Qty: 30 6RF Rx Instructions: via insulin pump levothyroxine 75 mcg tablet 75 mcg PO DAILY Qty: 90 2RF atorvastatin 20 mg tablet 20 mg PO QDAY Qty: 90 2RF (DME) Dexcom G7 Sensor Device See Rx Instructions .Route Qty: 3 8RF Rx Instructions: change every 10 days Referrals / Follow Up: Anila Mas, NUCLEAR PLANT EQUIPMENT OPERATOR-C [Primary Care Provider] - Disposition Disposition (needs filled in before D/C Order can be placed): Home, Self Care
--- NOTE | 2025-02-25 08:51 | PCM.POST.ANE ---
Anesthesia: Postop Eval I Current Vital Signs Temperature: 97 F Pulse Rate: 60 Blood Pressure: 112/59 Respiratory Rate: 16 Pulse Ox: 94 Oxygen Delivery Method: Room Air Assessment Airway patent: Yes Spontaneous unlabored respirations: Yes Mental status: Awake and Calm nausea: No Vomiting: No Anesthesia Complication: No Fluid Hydration Crystalloid volume administer (ml): 200 Total IV fluid infused: 200 Progress Note Anesthesia document: Postop Eval 1 completed: Yes
--- NOTE | 2025-02-25 12:31 | POSTOPAN2_ITS ---
Anesthesia Postop Eval I Sum Postop Eval Completion status Anesthesia document: Postop Eval 1 completed: Yes Anesthesia Postop Eval I Summary Anesthesia Postop Eval I Summary: Anesthesia Postop Eval I: Assessment Summary Airway patent Yes 02/25/25 08:51 [email or web address] Spontaneous unlabored Yes 02/25/25 08:51 [email or web address] respirations Mental status Awake,Calm 02/25/25 08:51 [email or web address] nausea No 02/25/25 08:51 [email or web address] Vomiting No 02/25/25 08:51 [email or web address] Anesthesia Postop Eval I: Fluid Summary Crystalloid volume administer 200 02/25/25 08:51 [email or web address] (ml) Colloids volume administered ( ml) Blood Product volume administered (ml) Total IV fluid infused 200 02/25/25 08:51 [email or web address] Anesthesia Postop Eval I: Summary Notes Anesthesia Complication No 02/25/25 08:51 [email or web address] Anesthesia Complication Comment: Post-operative progress note Anesthesia: Postop Eval II Evaluation Mental status: Awake and Calm Pain Level: 0 nausea: No Vomiting: No Complications Anesthesia Complication: No
--- NOTE | 2025-02-25 12:31 | PCM.POSTANE2 ---
Anesthesia Postop Eval I Sum Postop Eval Completion status Anesthesia document: Postop Eval 1 completed: Yes Anesthesia Postop Eval I Summary Anesthesia Postop Eval I Summary: Anesthesia Postop Eval I: Assessment Summary Airway patent Yes 02/25/25 08:51 [email or web address] [email or web address] Spontaneous unlabored Yes 02/25/25 08:51 [email or web address] [email or web address] respirations Mental status Awake,Calm 02/25/25 08:51 [email or web address] nausea No 02/25/25 08:51 [email or web address] [email or web address] Vomiting No 02/25/25 08:51 [email or web address] [email or web address] Anesthesia Postop Eval I: Fluid Summary Crystalloid volume administer 200 02/25/25 08:51 [email or web address] (ml) Colloids volume administered ( ml) Blood Product volume administered (ml) Total IV fluid infused 200 02/25/25 08:51 [email or web address] [email or web address] Anesthesia Postop Eval I: Summary Notes Anesthesia Complication No 02/25/25 08:51 [email or web address] Anesthesia Complication Comment: Post-operative progress note Anesthesia: Postop Eval II Evaluation Mental status: Awake and Calm Pain Level: 0 nausea: No Vomiting: No Complications Anesthesia Complication: No
== END 2025-02-25 09:17 | disposition home or self-care (01) ==
LOC: SDC 06:01 → AC 06:01
PROVIDERS: PCP Nurse Practitioner Family; Referring Provider Orthopaedic Surgery; Visit Provider Orthopaedic Surgery
PROC: (CPT 64721; principal; 2025-02-25 07:15)
DX: G56.02 Carpal tunnel syndrome, left upper limb (principal); E10.9 Type 1 diabetes mellitus without complications; Z79.4 Long term (current) use of insulin; F32.A Depression, unspecified; E03.9 Hypothyroidism, unspecified; E78.00 Pure hypercholesterolemia, unspecified; Z96.41 Presence of insulin pump (external) (internal); Z79.899 Other long term (current) drug therapy; Z79.890 Hormone replacement therapy
CPT/HCPCS: 64721; 01810; 82962; J2405

== ENCOUNTER → 2025-05-01 | Outpatient (CLI) | payer MEDICAID, SELFPAY ==
[2025-05-01 12:21] LABS: Hematocrit 41.0 % (37-47); Hemoglobin 13.1 g/dL (12.0-15.0); Immature Granulocytes Count 0.020 X10^3/uL (0.0-0.0); Mean Corp Hgb Conc 32.0 g/dL (32-36); Mean Corpuscular Volume 93.6 fL (81-99); Mean Platelet Vol. 10.3 fl (6.2-12.0); NRBC Flagged by Analyzer 0 % (0-5); Platelet Count 292 K/mm3 (150-450); RBC Distribution Width CV 13.5 % (11.6-14.6); RBC Distribution Width SD 47.0 fl (35.1-43.9); Red Blood Count 4.38 M/mm3 (4.2-5.4); White Blood Count 8.4 K/mm3 (4.4-11.0)
[2025-05-01 13:21] LABS: AST(SGOT) 25 U/L (<=31); Alanine Aminotransfer ALT/SGPT 16 U/L (<=34); Albumin, Serum 4.3 g/dL (3.4-4.8); Alkaline Phosphatase 97 U/L (35-104); Anion Gap 12 (5-15); BUN 12 mg/dL (4-19); BUN/Creat Ratio 14.7 RATIO (10-20); Calcium,Total 10.0 mg/dL (7.6-11.0); Carbon Dioxide 22.5 mmol/L (21.0-32.0); Chloride 103 mmol/L (98-108); Globulin 2.9 g/dL (2.2-4.2); Glucose 147 mg/dL (70-99); Potassium 4.5 mmol/L (3.3-5.1); Vitamin B12 469 pg/mL (180-914); Vitamin D,25 Hydroxy 55.8 ng/mL (30-100)
== END | disposition home or self-care (01) ==
LOC: VSLAB 10:23
PROVIDERS: PCP Nurse Practitioner Family; Visit Provider Nurse Practitioner Family
DX: I10 Essential (primary) hypertension (principal); E53.8 Deficiency of other specified B group vitamins; E03.9 Hypothyroidism, unspecified; E55.9 Vitamin D deficiency, unspecified
CPT/HCPCS: 36415; 80053; 82306; 82607; 84439; 84443; 85025

== ENCOUNTER → 2025-05-26 | Outpatient (CLI) | payer MEDICAID, SELFPAY ==
--- NOTE | 2025-05-26 08:26 | BI_ITS ---
EXAM: Digital screening mammography with CAD and ALFONZO bilaterally. DATE: 05/26/2025 CLINICAL HISTORY: F, Age 60 y/o , SCREENING TECHNIQUE: Procedure Code: [id number] Modality: MG Procedure: SCRN MAMM (CAD)W/ALFONZO BILAT COMPARISON: Prior exam(s) dated 05/21/2024 and 05/01/2023. FINDINGS: TISSUE DENSITY: There are scattered areas of fibroglandular density. Bilateral Breast Mammographic Findings: No significant masses, calcifications or other abnormalities are identified. Benign-appearing round microcalcifications are seen in both breasts. A benign-appearing macrocalcification is seen in the left breast. BI/SCRN MAMM (CAD)W/ALFONZO BILAT IMPRESSION: Benign screening mammogram OVERALL FINAL ASSESSMENT BI-RADS 2: BENIGN RECOMMENDATION: Routine annual follow-up in 1 Year Additional Recommendation none A letter with findings and recommendations will be mailed to the patient. Reading Location: [id number]
--- NOTE | 2025-05-26 08:26 | US_ITS ---
PROCEDURE: TRANSVAGINAL NON- 05/26/2025 REASON FOR EXAM: PELVIC PERINEAL PAIN TECHNIQUE: Procedure Code: USTVAG Modality: US Procedure: TRANSVAGINAL NON- COMPARISON: None FINDINGS: Uterus measures 8.7 x 6 x 4.3 cm. It is anteverted. No fibroids. It is heterogenous. Endometrium measures 7mm. It is hyperechoic. Right ovary measures 2.3 x 1.8 x 1.8 cm and left ovary measures 2.2 x 2.2 x 1.8 cm. There is symmetrical normal vascular flow. No significant free fluid. US/Transvaginal Non- IMPRESSION: Heterogenous uterus. Endometrium measures 7mm. Otherwise unremarkable exam. Reading Location: [facility]
== END | disposition home or self-care (01) ==
LOC: OPBI 08:25
PROVIDERS: PCP Nurse Practitioner Family; Referring Provider Nurse Practitioner Family; Visit Provider Nurse Practitioner Family
DX: Z12.31 Encounter for screening mammogram for malignant neoplasm of breast (principal)
CPT/HCPCS: 76830; 77063; 77067